=== PATIENT | female | born 1945 | race Two or more races ===

== ENCOUNTER 2023-06-27 22:44 | Inpatient (IN) | payer MEDICARE, MEDICAID, SELFPAY ==
--- NOTE | ~2023-06-27 | CT_ITS ---
EXAMINATION: CT ANGIOGRAM OF THE CHEST WITH AND WITHOUT CONTRAST (CT PULMONARY ANGIOGRAM FOR PE) CLINICAL INFORMATION: Reason for Exam HYPOXIA COMPARISON: Chest x-ray 06/27/2023 TECHNIQUE: Prior to contrast administration, noncontrast localization images were obtained. Subsequently, multidetector volumetric imaging was performed from the thoracic inlet to below the diaphragms following the administration of 100 mL Omnipaque 350 intravenous contrast. No contrast reaction reported Sagittal, coronal, and MIP oblique sagittal reformatted images were obtained on the CT workstation, uploaded to PACS, and reviewed. This CT examination was performed using dose optimization techniques as appropriate, variously including the following: *Automated exposure control *Adjustment of mA and/or kV according to patient size (this includes techniques or standardized protocols for targeted exams where dose is matched to indication/reason for exam; i.e. extremities or head) *Use of iterative reconstruction technique Total exam dose-length product 337 mGy-cm FINDINGS: QUALITY OF STUDY/CONTRAST BOLUS: Suboptimal. PULMONARY ARTERIES: Limited evaluation due to bolus timing and respiratory motion artifact. While no central/lobar pulmonary embolus is seen, the possibility of segmental or subsegmental emboli cannot be excluded on basis of this exam. THORACIC AORTA: No aneurysm. LUNG: There is some collapse of the posterior wall the trachea, suggesting tracheomalacia. There is respiratory motion artifact which limits detail evaluation of the lung parenchyma. Patchy areas of consolidation are present in the bilateral lower lobes, and to a lesser degree in the posterior upper lobes and right middle lobe, including some areas of tree-in-bud type nodularity. There is some dependent atelectasis at the lung bases. PLEURA: No pleural effusion or pneumothorax. MEDIASTINUM: The visualized thyroid gland is unremarkable. There are subcentimeter mediastinal lymph nodes within the range of normal variation. Borderline cardiomegaly without pericardial effusion. No evidence of septal bowing or right heart strain. CORONARY ARTERY CALCIFICATION: None visualized on this study. CHEST WALL/AXILLA: No axillary or internal mammary lymphadenopathy. OSSEOUS STRUCTURES: Multilevel vacuum disc phenomenon in the thoracic spine. UPPER ABDOMEN: Diffusely nodular hepatic contour consistent with cirrhosis. Patient is status post cholecystectomy. Visualized portion of the spleen appears enlarged. No reflux of contrast into the hepatic veins to suggest elevated right heart pressures. CT/CT angio chest PE protocol IMPRESSION: 1. Limited evaluation due to bolus timing and respiratory motion artifact. While no central/lobar pulmonary embolus is seen, the possibility of segmental or subsegmental emboli cannot be excluded on basis of this exam. 2. Patchy areas of consolidation in the bilateral lower lobes, and to a lesser degree in the posterior upper lobes and right middle lobe. Some areas of tree-in-bud type nodularity are also noted. Appearance is most suggestive of an infectious/inflammatory etiology. Follow-up CT in approximately 3 months is recommended to assess for resolution of the consolidations and exclude underlying mass. 3. Cirrhotic morphology of the liver. VTE: indeterminate.
--- NOTE | ~2023-06-27 | XR_ITS ---
EXAMINATION: XR CHEST CLINICAL INFORMATION: Hypoxia COMPARISON: None available. TECHNIQUE: Frontal view of the chest was obtained. FINDINGS: Lung volumes are symmetric. There are patchy airspace opacities in the right perihilar region and base. Questionable patchy left basilar opacity. No evidence of pneumothorax or significant pleural effusion. Cardiac silhouette appears near the upper limits of normal in size. Calcification is present at the aortic arch. No acute osseous findings are seen. XR/XR chest 1V IMPRESSION: Patchy right perihilar and basilar airspace opacities, suspicious for pneumonia in the proper clinical setting. Questionable patchy left basilar opacity. Radiographic followup after treatment/resolution of symptoms is recommended.
[2023-06-27 22:46] VITALS: BP 130/90; PULSE 83; O2SAT 95
[2023-06-27 22:50] VITALS: PULSE 89; RESP 21; O2SAT 93
[2023-06-27 22:52] VITALS: BP 130/90; BP 146/65; PULSE 83; PULSE 93; RESP 29; TEMP 37; O2SAT 94; O2SAT 95; BMI 40.7
--- NOTE | 2023-06-27 23:01 | ECG_ITS ---
Test Reason : SOB Blood Pressure : / mmHG Vent. Rate : 097 BPM Atrial Rate : 097 BPM P-R Int : 138 ms QRS Dur : 080 ms QT Int : 352 ms P-R-T Axes : 070 -08 040 degrees QTc Int : 447 ms Normal sinus rhythm Possible Inferior infarct (cited on or before 27-JUN-2023) Cannot rule out Anterior infarct , age undetermined Abnormal ECG When compared with ECG of 27-JUN-2023 23:01, No significant change was found Referred By: Nikhil Butts Electronically Signed By:PEDRO WILLSON
[2023-06-27] MEDS: 0.9 % Sodium Chloride 1,000 ML 999 ML IV (23:20)
[2023-06-27 23:21] VITALS: O2SAT 93
--- NOTE | 2023-06-27 23:22 | ED_ITS ---
HPI - General Adult General Chief complaint: Dyspnea Stated complaint: LOW O2 Time Seen by Provider: 06/27/23 22:50 Source: patient and EMS Mode of arrival: EMS Limitations: no limitations History of Present Illness HPI narrative: 77-year-old female history of COPD and cigarette smoker came in by EMS from rehab (had total hip arthroplasty at [facility]) started since yesterday with coughing with green sputum and shortness of breath, found to be hypoxic at 75% by EMS patient was placed on 2 L of oxygen and patient is still hypoxic, patient was placed on CPAP during transportation and O2 sat improved to 93 to 94%. Related Data Allergies Allergy/AdvReac Type Severity Reaction Status Date / Time acetaminophen Allergy Unknown Unknown Verified 06/27/23 22:57 Tuberculin AdvReac Unknown Unknown Uncoded 06/27/23 22:57 Review of Systems Review of Systems: All other systems are reviewed and are negative Constitutional: Reports as per HPI and Reports no additional constitutional complaints Eyes: Reports as per HPI and Reports no additional eye complaints Reports system reviewed and no additional complaints, except as documented Cardiovascular: Reports as per HPI and Reports no additional cardiovascular complaints Respiratory: Reports as per HPI and Reports no additional respiratory complaints Gastrointestinal: Reports as per HPI and Reports no additional gastrointestinal complaints Genitourinary: Reports no additional female genitourinary complaints Musculoskeletal: Reports no additional musculoskeletal complaints Skin/Breast: Reports system reviewed and no additional complaints, except as docu Psychiatric: Reports no additional psychiatric complaints Endocrine: Reports no additional endocrine complaints Hematologic/Lymphatic: Reports no additional hematologic/lymphatic complaints Allergic/Immunologic: Reports no additional allergic/immunologic complaints Reports system reviewed and no additional complaints, except as documented and Reports Abnormal speech present [facility] Social History Social History Alcohol intake: unknown Smoked in Last 30 Days: Yes Use of substances other than those prescribed or required for medical reasons: No Advance Directives: No Advance Directives Information Provided: Yes Physical Exam ED Vital Signs: Vital Signs - 24 hr 06/27/23 22:52 06/27/23 22:50 06/27/23 23:23 Temperature 98.6 F Pulse Rate 93 89 Respiratory Rate 29 H 21 H 21 H Blood Pressure 146/65 H Pulse Oximetry 94 Oxygen Delivery Method CPAP 06/27/23 23:44 Temperature Pulse Rate 97 Respiratory Rate 20 Blood Pressure 115/55 L Pulse Oximetry 92 Oxygen Delivery Method CPAP BMI result Body Mass Index 40.7 Vital signs have been reviewed as appeared to be correct. Blood pressure normal. Heart rate normal. Respiration rate normal. Temperature normal. Oxygen saturation normal. Appearance: Alert. Oriented X3. No acute distress. Head: Normal external exam. Normocephalic. Atraumatic. No Stern signs noted. No raccoon eyes noted Eyes: PERRLA. EOMI. Conjunctiva and sclera normal. Eyelids normal. ENT: TM's Normal. Pharynx normal. Uvula midline. Moist mucous membranes. No trismus noted. No drooling noted. No muffled voice noted. Neck: Normal inspection. Neck supple. FROM. No adenopathy. Thyroid Normal. No meningeal signs. No neck mass noted. CVS: Normal heart rate and rhythm. Heart sound normal. No murmurs noted. Pulses normal throughout. Respiratory: No respiratory distress. Painless inspiration. Breath sounds normal. Bilateral diffuse expiratory wheezing with prolonged expiration, bilateral basilar rales bilaterally. Chest nontender. No accessory muscle usage noted or decreased air movement noted. Abdomen: Soft and nontender. Bowel sounds normal in all 4 quadrants. No distention noted. No organomegaly noted. No visible injury noted. Back: No CVA tenderness. Full range of motion noted. Skin: Skin warm and dry. Normal skin color. Normal skin turgor. No rashes/lesions/lacerations noted. Extremities: +2 lower extremity edema. Extremities exhibit normal range of motion. Extremities nontender. Neuro: Oriented X 3. Cranial nerve exam: II-XII are grossly intact No motor deficit. No sensory deficit. Reflexes normal. Course Course Course Narrative: 77-year-old female history of smoking and COPD came in acute respiratory distress with hypoxia require BiPAP to keep O2 sat and a good level, patient also has a healthcare acquired pneumonia with severe sepsis that require BiPAP to maintain patient oxygenation, CHF. 1. Gentle diuresis with Lasix. 2. Continue with BiPAP machine and admit to ICU. 3. Healthcare acquired pneumonia with severe sepsis due to requirement of BiPAP machine gentle fluid was given and Zosyn. No septic shock. Medications Administered Discontinued Medications Generic Name Dose Route Start Last Admin Trade Name Freq PRN Reason Stop Dose Admin Albuterol Sulfate 7.5 mg 06/27/23 22:57 08/21/23 23:23 Albuterol Sulfate (0.083%) 2.5 Mg/3 Ml Vial.Neb INHALE 06/27/23 22:58 7.5 mg ONCE ONE Administration Albuterol/Ipratropium 3 ml 06/27/23 22:57 06/27/23 23:23 Albuterol/Iprat 2.5/0.5mg 3 Ml Ampul.Neb INHALE 06/27/23 22:58 3 ml ONCE ONE Administration Piperacillin Sod/Tazobactam 50 mls @ 100 mls/hr 06/27/23 22:57 06/27/23 23:26 Sod 3.375 gm/ Sodium Chloride IV 06/27/23 23:26 100 mls/hr ONCE ONE Administration Sodium Chloride 1,000 mls @ 999 mls/hr 06/27/23 23:01 06/27/23 23:20 Ns IV 06/28/23 00:01 999 mls/hr .Q1H1M ONE Administration Methylprednisolone Sodium Succinate 125 mg 06/27/23 22:57 06/27/23 23:26 Methylprednisolone Sod Succ 125 Mg/2 Ml Vial IVPUSH 06/27/23 22:58 125 mg ONCE ONE Administration Methylprednisolone Sodium Succinate 125 mg 06/27/23 22:57 06/27/23 23:26 Methylprednisolone Sod Succ 125 Mg/2 Ml Vial IVPUSH 06/27/23 22:58 Not Given ONCE ONE Medical Decision Making Differential Diagnosis Differential Diagnoses: The differential diagnosis associated with the presentation includes (COPD exacerbation, CHF, pneumonia, pneumothorax, pleural effusion, severe sepsis, septic shock, electrolyte abnormality, severe anemia, ACS.) Admission/Observation Consideration of admission/observation: Escalation of care including admission/observation considered Consult Healthcare Provider Management of the patient was discussed with: Dog Food Shredder Operator (Dr. Hughes.) Lab Data MDM Lab Attestation statement: I reviewed the patient's lab results. 06/27/23 23:18 06/27/23 23:18 Labs: Lab Results 06/27/23 06/27/23 06/27/23 Range/Units 23:18 23:18 23:18 WBC 15.6 H (4.8-10.8) X10*3/uL RBC 4.86 (4.20-5.50) X10*6/uL Hgb 13.2 (12.0-16.0) g/dl Hct 42.6 (37.0-47.0) % MCV 87.7 (80.0-98.0) fL MCH 27.2 (27.0-33.0) pg MCHC 31.0 (31.0-35.0) g/dl RDW 14.6 (11.0-16.0) % Plt Count 52 L (160-400) X10*3/uL MPV TNP Immature Gran % (Auto) 0.6 H (0.0-0.4) % Neut % (Auto) 88.5 H (45-73) % Lymph % (Auto) 2.6 L (20-40) % [place] % (Auto) 8.2 (2-11) % Eos % (Auto) 0.0 (0-4) % Baso % (Auto) 0.1 (0-2) % Lymph # (Auto) 0.4 L (1.2-4.9) X10*3/uL [place] # (Auto) 1.3 H (0.1-1.2) X10*3/uL Eos # (Auto) 0.0 (0.0-0.4) X10*3/uL Baso # (Auto) 0.0 (0.0-0.2) X10*3/uL Abs Immat Gran (auto) 0.09 H (0.00-0.03) X10*3/uL Absolute Neuts (auto) 13.8 H (2.0-8.3) x10*3/uL Absolute Nucleated RBC 0.000 (0.0-0.012) X10*3/uL Nucleated RBC % (auto) 0.0 (0.0-0.2) /100WBC Smear Tech's Comments VERIFIED O2 Saturation % ABG pH at Pt Temp (7.35-7.45) ABG pCO2 at Pt Temp (32-45) mmHg ABG pO2 at Pt Temp (83-108) mmHg ABG HCO3 (22-26) mmol/L ABG Base Excess (Actual) mmol/L Sodium 141 (135-145) mmol/L Potassium 4.6 (3.3-5.1) mmol/L Chloride 104 (96-108) mmol/L Carbon Dioxide 30 H (22-29) mmol/L Anion Gap 12 (12-20) BUN 18 H (9-16) mg/dL Creatinine 0.86 (0.5-1.4) mg/dL Estim Creat Clear Calc 61.9 Estimated GFR > 60 Random Glucose 132 H (60-115) mg/dL Lactic Acid (0.5-2.0) mmol/L Calcium 9.2 (8.4-10.2) mg/dL Total Bilirubin 1.7 H (0.0-1.0) mg/dL Direct Bilirubin 0.7 H (0.0-0.5) mg/dL AST 19 (5-31) U/L ALT 7 (0-31) U/L Alkaline Phosphatase 91 (39-117) U/L Troponin I High Sens 8.2 (<3.5-17.0) ng/L B-Natriuretic Peptide (<100) pg/mL Total Protein 6.9 (6.5-8.0) g/dL Albumin 3.5 (3.5-5.0) g/dL Lipase 20 (8-78) U/L Influenza Type A (PCR) (Negative) Influenza Type B (PCR) (Negative) RSV RNA Qual (PCR) (Negative) SARS-CoV-2 RNA (RT-PCR) (Negative) 06/27/23 06/27/23 06/27/23 Range/Units 23:18 23:18 23:19 WBC (4.8-10.8) X10*3/uL RBC (4.20-5.50) X10*6/uL Hgb (12.0-16.0) g/dl Hct (37.0-47.0) % MCV (80.0-98.0) fL MCH (27.0-33.0) pg MCHC (31.0-35.0) g/dl RDW (11.0-16.0) % Plt Count (160-400) X10*3/uL MPV Immature Gran % (Auto) (0.0-0.4) % Neut % (Auto) (45-73) % Lymph % (Auto) (20-40) % [place] % (Auto) (2-11) % Eos % (Auto) (0-4) % Baso % (Auto) (0-2) % Lymph # (Auto) (1.2-4.9) X10*3/uL [place] # (Auto) (0.1-1.2) X10*3/uL Eos # (Auto) (0.0-0.4) X10*3/uL Baso # (Auto) (0.0-0.2) X10*3/uL Abs Immat Gran (auto) (0.00-0.03) X10*3/uL Absolute Neuts (auto) (2.0-8.3) x10*3/uL Absolute Nucleated RBC (0.0-0.012) X10*3/uL Nucleated RBC % (auto) (0.0-0.2) /100WBC Smear Tech's Comments O2 Saturation % ABG pH at Pt Temp (7.35-7.45) ABG pCO2 at Pt Temp (32-45) mmHg ABG pO2 at Pt Temp (83-108) mmHg ABG HCO3 (22-26) mmol/L ABG Base Excess (Actual) mmol/L Sodium (135-145) mmol/L Potassium (3.3-5.1) mmol/L Chloride (96-108) mmol/L Carbon Dioxide (22-29) mmol/L Anion Gap (12-20) BUN (9-16) mg/dL Creatinine (0.5-1.4) mg/dL Estim Creat Clear Calc Estimated GFR Random Glucose (60-115) mg/dL Lactic Acid 1.3 (0.5-2.0) mmol/L Calcium (8.4-10.2) mg/dL Total Bilirubin (0.0-1.0) mg/dL Direct Bilirubin (0.0-0.5) mg/dL AST (5-31) U/L ALT (0-31) U/L Alkaline Phosphatase (39-117) U/L Troponin I High Sens (<3.5-17.0) ng/L B-Natriuretic Peptide 1386 H (<100) pg/mL Total Protein (6.5-8.0) g/dL Albumin (3.5-5.0) g/dL Lipase (8-78) U/L Influenza Type A (PCR) NEGATIVE (Negative) Influenza Type B (PCR) NEGATIVE (Negative) RSV RNA Qual (PCR) NEGATIVE (Negative) SARS-CoV-2 RNA (RT-PCR) NEGATIVE (Negative) 06/27/23 Range/Units 23:20 WBC (4.8-10.8) X10*3/uL RBC (4.20-5.50) X10*6/uL Hgb (12.0-16.0) g/dl Hct (37.0-47.0) % MCV (80.0-98.0) fL MCH (27.0-33.0) pg MCHC (31.0-35.0) g/dl RDW (11.0-16.0) % Plt Count (160-400) X10*3/uL MPV Immature Gran % (Auto) (0.0-0.4) % Neut % (Auto) (45-73) % Lymph % (Auto) (20-40) % [place] % (Auto) (2-11) % Eos % (Auto) (0-4) % Baso % (Auto) (0-2) % Lymph # (Auto) (1.2-4.9) X10*3/uL [place] # (Auto) (0.1-1.2) X10*3/uL Eos # (Auto) (0.0-0.4) X10*3/uL Baso # (Auto) (0.0-0.2) X10*3/uL Abs Immat Gran (auto) (0.00-0.03) X10*3/uL Absolute Neuts (auto) (2.0-8.3) x10*3/uL Absolute Nucleated RBC (0.0-0.012) X10*3/uL Nucleated RBC % (auto) (0.0-0.2) /100WBC Smear [facility]'s Comments O2 Saturation 96.0 % ABG pH at Pt Temp 7.31 L (7.35-7.45) ABG pCO2 at Pt Temp 67 H* (32-45) mmHg ABG pO2 at Pt Temp 88 (83-108) mmHg ABG HCO3 34 H (22-26) mmol/L ABG Base Excess (Actual) 6.0 mmol/L Sodium (135-145) mmol/L Potassium (3.3-5.1) mmol/L Chloride (96-108) mmol/L Carbon Dioxide (22-29) mmol/L Anion Gap (12-20) BUN (9-16) mg/dL Creatinine (0.5-1.4) mg/dL Estim Creat Clear Calc Estimated GFR Random Glucose (60-115) mg/dL Lactic Acid (0.5-2.0) mmol/L Calcium (8.4-10.2) mg/dL Total Bilirubin (0.0-1.0) mg/dL Direct Bilirubin (0.0-0.5) mg/dL AST (5-31) U/L ALT (0-31) U/L Alkaline Phosphatase (39-117) U/L Troponin I High Sens (<3.5-17.0) ng/L B-Natriuretic Peptide (<100) pg/mL Total Protein (6.5-8.0) g/dL Albumin (3.5-5.0) g/dL Lipase (8-78) U/L Influenza Type A (PCR) (Negative) Influenza Type B (PCR) (Negative) RSV RNA Qual (PCR) (Negative) SARS-CoV-2 RNA (RT-PCR) (Negative) ABG Data Attestation ABG: I personally reviewed and interpreted this ABG as follows: (Hypercarbia, slight acidosis.) Independent Interpretation I performed an independent interpretation of an: EKG (Normal sinus rhythm at 88 beats per minutes, left axis deviation, normal intervals, no ST-T changes.) and Plain X-Ray (Patchy right perihilar and basilar airspace opacities, suspicious for pneumonia in the proper clinical setting. Questionable patchy left basilar opacity. Radiographic followup after treatment/resolution of symptoms is recommended. ) Radiology Impression Discussion of test interpretation with radiology: I have reviewed the radiologist's reading. Discharge Plan Discharge Clinical Impression: Acute exacerbation of chronic obstructive airways disease, CHF (congestive heart failure), Pneumonia, Sepsis Patient Disposition: Admitted As Inpatient
[2023-06-27 23:23] VITALS: PULSE 89; RESP 21; O2SAT 93
[2023-06-27] MEDS: Albuterol/Iprat 2.5/0.5MG 3 ML AMPUL.NEB INHALE (23:23)
[2023-06-27] MEDS: Albuterol Sulfate (0.083%) 2.5 MG/3 ML VIAL.NEB 7.5 MG INHALE (23:23)
[2023-06-27 23:24] LABS: ABG HCO3 34 mmol/L (22-26); ABG pCO2 67 mmHg (32-45); ABG pH 7.31 (7.35-7.45); ABG pO2 88 mmHg (83-108)
[2023-06-27] MEDS: methylPREDNISolone Sod Succ 125 MG/2 ML VIAL IVPUSH (23:26)
[2023-06-27] MEDS: Piperacillin Sodium/Tazobactam 3.375 GM in 0.9 % Sodium Chloride 50 ML IV (23:26)
[2023-06-27 23:36] LABS: Lactic Acid 1.3 mmol/L (0.5-2.0)
[2023-06-27 23:39] LABS: Alanine Aminotransferase 7 U/L (0-31); Albumin Level 3.5 g/dL (3.5-5.0); Alkaline Phosphatase 91 U/L (39-117); Anion Gap 12 (12-20); Aspartate Amino Transferase 19 U/L (5-31); Bilirubin Direct 0.7 mg/dL (0.0-0.5); Bilirubin Total 1.7 mg/dL (0.0-1.0); Blood Urea Nitrogen 18 mg/dL (9-16); Calcium 9.2 mg/dL (8.4-10.2); Carbon Dioxide 30 mmol/L (22-29); Chloride 104 mmol/L (96-108); Creatinine Clr Calc Pharmacy 61.9; Estimated Glomerular Filt Rate > 60; Glucose Random 132 mg/dL (60-115); Lipase 20 U/L (8-78); Potassium 4.6 mmol/L (3.3-5.1); Sodium 141 mmol/L (135-145); Total Protein 6.9 g/dL (6.5-8.0)
[2023-06-27 23:41] LABS: Basophils Percent Auto 0.1 % (0-2); Hematocrit 42.6 % (37.0-47.0); Hemoglobin 13.2 g/dl (12.0-16.0); Imm Gran Abs Auto 0.09 X10*3/uL (0.00-0.03); Imm Gran Pct Auto 0.6 % (0.0-0.4); Lymphocytes Absolute Auto 0.4 X10*3/uL (1.2-4.9); Lymphocytes Percent Auto 2.6 % (20-40); Mean Corpuscular Hemoglobin 27.2 pg (27.0-33.0); Mean Corpuscular Volume 87.7 fL (80.0-98.0); Monocytes Absolute Auto 1.3 X10*3/uL (0.1-1.2); Monocytes Percent Auto 8.2 % (2-11); Neutrophils Absolute Auto 13.8 x10*3/uL (2.0-8.3); Neutrophils Percent Auto 88.5 % (45-73); Platelet Count 52 X10*3/uL (160-400); Red Blood Count 4.86 X10*6/uL (4.20-5.50); Red Cell Distribution Width 14.6 % (11.0-16.0); White Blood Count 15.6 X10*3/uL (4.8-10.8)
--- OUTSIDE RECORDS SUMMARY | 2023-06-27 23:41 | XMS_ITS | Continuity of Care Document ---
Author Name Unknown Organization [facility] Address [address] [place] [address]- Care Team Providers Care Mortgage Lender Name Role Phone Ta MAHONEY, Alex Primary Care Physician [place] [facility] [place]/22 [facility] [address], [place] [address] Discharge Disposition: A-D/C Home Attending Physician: Duane Umanzor MD Admitting Physician: Duane Umanzor MD Referring Physician: Antonia Celaya MD Allergies, Adverse Reactions, Alerts Substance Reaction Severity Status codeine Syncope Active Tuberculin Nya Test Active Immunizations Given and Recorded Vaccine Date Status Refusal Reason SARS-CoV-2 (COVID-19) mRNA-1273 vaccine 01/31/21 R ecorded SARS-CoV-2 (COVID-19) mRNA-1273 vaccine 01/03/21 R ecorded influenza virus vaccine, inactivated 12/16/20 Robb rded influenza virus vaccine, inactivated 07/29/12 Give n influenza virus vaccine, inactivated 01/18/07 Give n Hepatitis A Adult Vaccine 03/20/19 Recorded tetanus/diphtheria/pertussis, acel(Tdap) 01/10/19 Recorded hepatitis B adult vaccine 09/08/18 Recorded hepatitis B adult vaccine 06/28/18 Recorded hepatitis B adult vaccine 05/31/18 Recorded hepatitis B adult vaccine 07/14/12 Given pneumococcal 23-valent vaccine 08/06/12 Given Pneumococcal Vaccine (oldterm) 01/18/07 Given Medications albuterol CFC free 90 mcg/inh inhalation aerosol 2 puffs, Inhalation, 4 times a day, # 2 each, 1 Refills, Maintenance Start Date: 05/12/13 Stop Date: 07/11/13 Status: Ordered carvedilol 6.25 mg oral tablet 6.25 mg, 1, tablet, By Mouth, 2 times a day, # 60 tablet, Refills 0, Tot. Refills 0, Maintenance, 11/03/21 10:40:00 EST, Route to Pharmacy Electronically, [facility], Partial fill upon patient request if the prescription is for a schedul... Start Date: 11/03/21 Status: Ordered escitalopram 20 mg oral tablet 1 tablet = 20 mg, By Mouth, Daily in AM, TK 1 T PO QAM Start Date: 07/22/19 Status: Ordered multivitamin Multiple Vitamins oral capsule 1 capsule, By Mouth, Daily, # 30 capsule, 0 Refills, Maintenance, 04/03/21 15:05:00 EDT, Capsule, Partial fill upon patient request if the prescription is for a schedule II opioid drug. Start Date: 04/03/21 Status: Ordered Pantoprazole = 40 mg, By Mouth, 2 times a day, 0 Refills, Maintenance, 10/13/21 4:57:00 EST Start Date: 10/13/21 Status: Ordered Spiriva HandiHaler 18 mcg Inhalation Capsule 1 capsule, Inhalation, Daily, 0 Refills, Maintenance, 07/22/19 4:54:12 EDT, Capsule Start Date: 07/22/19 Status: Ordered thiamine 100 mg oral tablet 100 mg, 1, tablet, By Mouth, 2 times a day, # 30 tablet, Refills 0, Tot. Refills 0, Maintenance, 04/03/21 15:06:00 EDT, Print Requisition, Partial fill upon patient request if the prescription is fora schedule II opioid drug. Start Date: 04/03/21 Status: Ordered Trelegy Ellipta 200 mcg-62.5 mcg-25 mcg/inh inhalation powder 1 puffs, Inhalation, Daily, at the same time every day, # 1 each, 5 Refills, Maintenance, 12/01/20 14:43:00 EST, Powder, [id number], Partial fill upon patient request if the prescription is for a schedule II opioid drug., 1 puffs Inha... Start Date: 12/01/20 Status: Ordered Problem List Condition Effective Dates Status Health Status Inform ant Alcoholism(Confirmed) Active Altered mental status(Confirmed) Active ASTHMA(Confirmed) Active Stroke(Confirmed) Active Chest pain(Confirmed) 07/28/12 Active Liver cirrhosis(Confirmed) Active Depression(Confirmed) Active Hepatitis C(Confirmed) Active HYPERTENSION(Confirmed) Active Respiratory failure with hypoxia(Confirmed) Active Subacute infective endocarditis(Confirmed) Active Obese class I(Confirmed) Active Thrombocytopenia(Confirmed) Active COPD, severe(Confirmed) Active Unresponsiveness(Confirmed) Active Vital Signs Most recent to oldest [Reference Range]: 1 Height 157.4 cm (04/01/22 12:46 PM) Pulse Rate [55-90 bpm] 90 bpm (04/01/22 12:46 PM) Blood Pressure [90-138/55-84 mm Hg] 113/ 68mm Hg (04/01/22 12:46 PM) Temperature [96.8-100.4 DegF] 98.4 DegF (04/01/22 12:46 PM) Blood pressure sites Arm, right (04/01/22 12:46 PM) Temperature Route Oral (04/01/22 12:46 PM) Social History Social History Type Response Smoking Status Former smoker, quit more than 30 days ago entered on: 10/12/21 Sex
--- OUTSIDE RECORDS SUMMARY | 2023-06-27 23:41 | XMS_ITS | Continuity of Care Document ---
Author Name Unknown Organization [facility] Address [address] [place] [address]- Care Team Providers Care Plaster Caster Name Role Phone Ta MAHONEY, Alex Primary Care Physician Encounter [facility] Date(s): 12/01/20 - 12/31/20 [facility] [address] [place], [place] [address] Attending Physician: Mahesh Felipe Admitting Physician: AdmMahesh juarez Referring Physician: AdmtrMahesh Allergies, Adverse Reactions, Alerts No Known Medication Allergies Substance Reaction Severity Status NKA Active Immunizations Given and Recorded Vaccine Date Status Refusal Reason pneumococcal 23-valent vaccine 08/06/12 Given influenza virus vaccine, inactivated 07/29/12 Give n influenza virus vaccine, inactivated 01/18/07 Give n hepatitis B adult vaccine 07/14/12 Given Pneumococcal Vaccine (oldterm) 01/18/07 Given Medications Advair Diskus 250 mcg-50 mcg inhalation powder 1 puffs, Inhalation, 2 times a day, # 60 each, 0 Refills, Maintenance, Powder Start Date: 12/30/11 Status: Ordered albuterol CFC free 90 mcg/inh inhalation aerosol 2 puffs, Inhalation, 4 times a day, # 2 each, 1 Refills, Maintenance Start Date: 05/12/13 Stop Date: 07/11/13 Status: Ordered escitalopram 20 mg oral tablet 1 tablet = 20 mg, By Mouth, Daily in AM, TK 1 T PO QAM Start Date: 07/22/19 Status: Ordered ferrous sulfate 160 mg oral tablet, extended release 2 tablet = 320 mg, By Mouth, Daily, # 60 tablet, 0 Refills, Maintenance, 08/17/19 11:07:28 EDT, ER Tablet Start Date: 08/17/19 Stop Date: 09/16/19 Status: Ordered furosemide 20 mg oral tablet 20 mg, 1, tablet, By Mouth, Daily, PRN, # 30 tablet, Refills 0, Tot. Refills 0, Maintenance, abdominal distention, 08/17/19 10:53:47 EDT, Do Not Route Start Date: 08/17/19 Status: Ordered Loratadine 10 mg, By Mouth, Daily, Maintenance, 09/16/11 10:38:23 Start Date: 09/16/11 Status: Ordered Nicotine = 7 mg, Topically, Daily, 0 Refills, Maintenance, 07/25/19 8:05:31 EDT, Patch Start Date: 07/25/19 Status: Ordered pantoprazole 20 mg oral delayed release tablet 1 tablet = 20 mg, By Mouth, Daily, # 14 tablet, 0 Refills, Maintenance, 07/25/19 8:05:37 EDT, EC Tablet Start Date: 07/25/19 Stop Date: 08/08/19 Status: Ordered Prilosec 20 mg oral enteric coated capsule 1 capsule = 20 mg, By Mouth, Daily, 0 Refills, Maintenance Start Date: 09/16/11 Status: Ordered QUEtiapine 100 mg oral tablet 100 mg, 1, tablet, By Mouth, Daily at bedtime, Refills 0, Maintenance, 08/09/19 18:18:04 EDT Start Date: 08/09/19 Status: Ordered Refresh - solution 1 drops, Eyes, Both, 2 times a day, PRN for dry eyes, # 15 mL, 0 Refills, Maintenance, 07/22/19 4:55:31 EDT, Solution Start Date: 07/22/19 Status: Ordered Spiriva HandiHaler 18 mcg Inhalation Capsule 1 capsule, Inhalation, Daily, 0 Refills, Maintenance, 07/22/19 4:54:12 EDT, Capsule Start Date: 07/22/19 Status: Ordered Trelegy Ellipta 200 mcg-62.5 mcg-25 mcg/inh inhalation powder 1 puffs, Inhalation, Daily, at the same time every day, # 1 each, 5 Refills, Maintenance, 12/01/20 14:43:00 EST, Powder, [id number], Partial fill upon patient request if the prescription is for a schedule II opioid drug., 1 puffs Inha... Start Date: 12/01/20 Status: Ordered vancomycin 25 mg/mL oral liquid 5 mL = 125 mg, By Mouth, 4 times a day, to continue until 10-14 days after completion of IV cefazolin, 0 Refills, Maintenance, 08/28/19 8:50:42 EDT, Suspension Start Date: 08/28/19 Status: Ordered Problem List Condition Effective Dates Status Health Status Inform ant Alcoholism(Confirmed) Active Altered mental status(Confirmed) Active ASTHMA(Confirmed) Active Chest pain(Confirmed) 07/28/12 Active Liver cirrhosis(Confirmed) Active Depression(Confirmed) Active Hepatitis C(Confirmed) Active HYPERTENSION(Confirmed) Active Respiratory failure with hypoxia(Confirmed) Active Subacute infective endocarditis(Confirmed) Active COPD, severe(Confirmed) Active Unresponsiveness(Confirmed) Active
--- OUTSIDE RECORDS SUMMARY | 2023-06-27 23:41 | XMS_ITS | Continuity of Care Document ---
Author Name Unknown Organization [facility] Address [address] [place] [address]- Care Team Providers Care Business Professor Name Role Phone Leonardo Alejandra MD Primary Care Physician Encounter [facility] [place] Date(s): 06/23/21 - 10/21/21 [facility] [address] [place] [id number]- Attending Physician: Javi Oconnell MD Admitting Physician: Javi Oconnell MD Referring Physician: Todd MAHONEY, Braulio Kaminski Allergies, Adverse Reactions, Alerts Substance Reaction Severity [...] Date: 05/12/13 Stop Date: 07/11/13 Status: Ordered Alprazolam 1 mg, By Mouth, Refills 0, Maintenance, 10/13/21 4:58:00 EST, Partial fill upon patient request if the prescription is for a schedule II opioid drug. Start Date: 10/13/21 Status: Ordered escitalopram 20 mg oral tablet 1 tablet = 20 mg, By Mouth, Daily in AM, TK 1 T PO QAM Start Date: 07/22/19 Status: Ordered folic acid 1 mg oral tablet 1 mg, 1, tablet, By Mouth, Daily, # 30 tablet, Refills 0, Tot. Refills 0, Maintenance, 04/03/21 15:05:00 EDT, Print Requisition, Partial fill upon patient request if the prescription is for a schedule II opioid drug. Start Date: 04/03/21 Status: Ordered Keppra 500 mg oral tablet 1 tablet = 500 mg, By Mouth, 2 times a day, # 60 tablet, 0 Refills, Maintenance, 10/13/21 15:49:00 EST, Tablet, [facility], Partial fill upon patient request if the prescription is for a schedule II opioid drug., 157.48, cm, 10/13/21 11:... Start Date: 10/13/21 Stop Date: 11/12/21 Status: Ordered Loratadine 10 mg, By Mouth, Daily, Maintenance, 09/16/11 10:38:23 Start Date: 09/16/11 Status: Ordered midodrine 5 mg oral tablet 5 mg, 1, tablet, By Mouth, 3 times a day, # 90, Refills 0, Maintenance, 10/13/21 5:00:00 EST, Partial fill upon patient request if the prescription is for a schedule II opioid drug. Start Date: 10/13/21 Status: Ordered multivitamin Multiple Vitamins oral capsule 1 capsule, By Mouth, Daily, # 30 capsule, 0 Refills, Maintenance, 04/03/21 15:05:00 EDT, Capsule, Partial fill upon patient request if the prescription is for a schedule II opioid drug. Start Date: 04/03/21 Status: Ordered Pantoprazole = 40 mg, By Mouth, 2 times a day, 0 Refills, Maintenance, 10/13/21 4:57:00 EST Start Date: 10/13/21 Status: Ordered Propranolol 10 mg, By Mouth, Every 12 hours, Refills 0, Maintenance, 10/13/21 4:59:00 EST, Partial fill upon patient request if the prescription is for a schedule II opioid drug. Start Date: 10/13/21 Status: Ordered QUEtiapine 100 mg oral tablet 100 mg, 1, tablet, By Mouth, Daily at bedtime, Refills 0, Maintenance, 08/09/19 18:18:04 EDT Start Date: 08/09/19 Status: Ordered Spiriva HandiHaler 18 mcg Inhalation Capsule 1 capsule, Inhalation, Daily, 0 Refills, Maintenance, 07/22/19 4:54:12 EDT, Capsule Start Date: 07/22/19 Status: Ordered Spironolactone = 100 mg, By Mouth, Daily, 0 Refills, Maintenance, 10/13/21 4:56:00 EST, Partial fill upon patient request if the prescription is for a schedule II opioid drug. Start Date: 10/13/21 Status: Ordered thiamine 100 mg oral tablet 100 mg, 1, tablet, By Mouth, 2 times a day, # 30 tablet, Refills 0, Tot. Refills 0, Maintenance, 04/03/21 15:06:00 EDT, Print Requisition, Partial fill upon patient request if the prescription is fora schedule II opioid drug. Start Date: 04/03/21 Status: Ordered traZODone 50 mg oral tablet 50 mg, 1, tablet, By Mouth, Daily at bedtime, # 30 tablet, Refills 0, Maintenance, 10/13/21 4:56:00EST, Partial fill upon patient request if the prescription is for a schedule II opioid drug. Start Date: 10/13/21 Status: Ordered Trelegy Ellipta 200 mcg-62.5 mcg-25 mcg/inh inhalation powder 1 puffs, Inhalation, Daily, at the same time every day, # 1 each, 5 Refills, Maintenance, 12/01/20 14:43:00 EST, Powder, [id number], Partial fill upon patient request if the [...] with hypoxia(Confirmed) Active Subacute infective endocarditis(Confirmed) Active Thrombocytopenia(Confirmed) Active COPD, severe(Confirmed) Active Unresponsiveness(Confirmed) Active Social History Social History Type Response Smoking Status Former smoker, quit more than 30 days ago entered on: 10/12/21 Sex
--- OUTSIDE RECORDS SUMMARY | 2023-06-27 23:41 | XMS_ITS | Continuity of Care Document ---
Author Name Unknown Organization [facility] Address [address] [place] [id number] Care Team Providers Care Grant Manager Name Role Phone Not on Staff, PCP Primary Care Physician Unavail able Encounter [facility] Date(s): 01/06/23 - 01/16/[address] [id number] Encounter Diagnosis Hypoxia(Final) - 01/06/23 Discharge Disposition: A-Transfer SNF Attending Physician: Pasquale Middleton DO Admitting Physician: Citlali Fernández MD Referring Physician: Not on Staff, Referring MD Allergies, Adverse Reactions, Alerts Substance Reaction Severity Status codeine Syncope Active Tuberculin Nya Test Active Immunizations Given and Recorded Vaccine Date Status Refusal Reason SARS-CoV-2 (COVID-19) mRNA-1273 vaccine 03/30/22 R ecorded SARS-CoV-2 (COVID-19) mRNA-1273 vaccine 01/31/21 R ecorded SARS-CoV-2 (COVID-19) mRNA-1273 vaccine 01/03/21 R ecorded influenza virus vaccine, inactivated 12/16/20 Robb rded influenza virus vaccine, inactivated 08/25/18 Robb rded influenza virus vaccine, inactivated 09/23/16 Robb rded influenza virus vaccine, inactivated 10/10/15 Rbob rded influenza virus vaccine, inactivated 08/01/14 Robb rded influenza virus vaccine, inactivated 07/29/12 Give n influenza virus vaccine, inactivated 01/18/07 Give n Hepatitis A Adult Vaccine 03/20/19 Recorded tetanus/diphtheria/pertussis, acel(Tdap) 01/10/19 Recorded hepatitis B adult vaccine 09/08/18 Recorded hepatitis B adult vaccine 06/28/18 Recorded hepatitis B adult vaccine 05/31/18 Recorded hepatitis B adult vaccine 07/14/12 Given tetanus-diphtheria toxoids (Td) 08/25/18 Recorded pneumococcal 13-valent vaccine 08/25/18 Recorded pneumococcal 23-valent vaccine 10/10/15 Recorded pneumococcal 23-valent vaccine 08/06/12 Given Pneumococcal Vaccine (oldterm) 01/18/07 Given Medications acamprosate 333 mg oral delayed release tablet 2 tablet = 666 mg, By Mouth, 3 times a day, Maintenance, 01/06/23 13:53:00 EST, ; Start Date: 01/06/23 Status: Ordered albuterol-ipratropium 3 mg-0.5 mg/3 ml inhalation solution 3 mL, Neb, 3 times a day, PRN Wheezing/Shortness of Breath, Maintenance, 01/06/23 13:53:00 EST, ; Start Date: 01/06/23 Status: Ordered ALPRAZolam 0.5 mg oral tablet 0.5 mg, 1, tablet, By Mouth, 2 times a day, PRN, for 7 days, # 12 tablet, Refills 0, Tot. Refills 0, Acute 01/23/23 9:06:00 EDT, Sleep, 01/16/23 9:06:00 EDT, Print Requisition, Partial fill upon patient request if the prescription is for a schedule II... Start Date: 01/16/23 Stop Date: 01/23/23 Status: Ordered Artificial Tears 1.4% Eyes, Both, Every 4 hours, PRN Other, Dryness., 0 Refills, Maintenance, 01/16/23 9:05:00 EDT, OphthSolution, Partial fill upon patient request if the prescription is for a schedule II opioid drug. Start Date: 01/16/23 Status: Ordered Daily Talia oral tablet 1 tablet, By Mouth, Daily, Maintenance, 01/06/23 13:53:00 EST, ; Start Date: 01/06/23 Status: Ordered diclofenac 1% topical gel Topically, 2 times a day, Maintenance, 01/06/23 13:53:00 EST, ; Start Date: 01/06/23 Status: Ordered Docusate/Senna Tablet 1 tablet, By Mouth, 2 times a day, PRN Constipation, 0 Refills, Maintenance, 01/16/23 9:05:00 EDT, Tablet, Partial fill upon patient request if the prescription is for a schedule II opioid drug. Start Date: 01/16/23 Status: Ordered duloxetine 30 mg oral enteric coated capsule 1 capsule = 30 mg, By Mouth, Daily, Maintenance, 01/06/23 13:53:00 EST, ; Start Date: 01/06/23 Status: Ordered escitalopram 20 mg oral tablet 1 tablet = 20 mg, By Mouth, Daily, Maintenance, 01/06/23 13:53:00 EST, ; Start Date: 01/06/23 Status: Ordered folic acid 1 mg oral tablet 1 mg, 1, tablet, By Mouth, Daily, Maintenance, 01/06/23 14:05:00 EST, ; Start Date: 01/06/23 Status: Ordered furosemide 20 mg oral tablet 20 mg, 1, tablet, By Mouth, Daily, Maintenance, 01/06/23 13:53:00 EST, ; Start Date: 01/06/23 Status: Ordered gabapentin 300 mg oral capsule 300 mg, Capsule, By Mouth, 01/16/23 9:00:00 EDT Start Date: 01/16/23 Stop Date: 01/16/23 Status: Completed gabapentin 300 mg oral capsule 300 mg, 1, capsule, By Mouth, 2 times a day, Maintenance, 01/06/23 13:53:00 EST, ; Start Date: 01/06/23 Status: Ordered hydrocortisone 1% topical cream Rectally, 2 times a day, Maintenance, 01/06/23 13:53:00 EST, ; Start Date: 01/06/23 Status: Ordered levETIRAcetam 500 mg oral tablet 1 tablet = 500 mg, By Mouth, 2 times a day, Maintenance, 01/06/23 13:53:00 EST, ; Start Date: 01/06/23 Status: Ordered loratadine 10 mg oral tablet 10 mg, 1, tablet, By Mouth, Daily, Refills 0, Maintenance, 01/16/23 9:05:00 EDT, Partial fill upon patient request if the prescription is for a schedule II opioid drug. Start Date: 01/16/23 Status: Ordered metoprolol 25 mg oral tablet, extended release 25 mg, XL Tablet, By Mouth, 01/16/23 9:00:00 EDT Start Date: 01/16/23 Stop Date: 01/16/23 Status: Completed Metoprolol Succinate ER 25 mg oral tablet, extended release 1 tablet = 25 mg, By Mouth, Daily, Maintenance, 01/06/23 13:53:00 EST, ; Start Date: 01/06/23 Status: Ordered naloxone 4 mg/0.1 mL nasal spray = 4 mg, Naris, Left, Once, PRN as needed, Maintenance, 01/06/23 13:53:00 EST, ; Start Date: 01/06/23 Status: Ordered Nyamyc 100,000 units/g topical powder Topically, 4 times a day, Maintenance, 01/06/23 13:53:00 EST, ; Start Date: 01/06/23 Status: Ordered oxyCODONE 5 mg oral tablet 5 mg, 1, tablet, By Mouth, Every 6 hours, PRN, for 7 days, # 28 tablet, Refills 0, Tot. Refills 0, Acute 01/23/23 9:04:00 EDT, Pain , Moderate, 01/16/23 9:04:00 EDT, Print Requisition, Partial fill upon patient request if the prescription is for a max... Start Date: 01/16/23 Stop Date: 01/23/23 Status: Ordered pantoprazole 40 mg oral delayed release tablet 1 tablet = 40 mg, By Mouth, Daily, Maintenance, 01/06/23 13:53:00 EST Start Date: 01/06/23 Status: Ordered polyethylene glycol 3350 oral powder for reconstitution = 17 Gm, By Mouth, Daily, Maintenance, 01/06/23 13:53:00 EST, ; Start Date: 01/06/23 Status: Ordered ProAir HFA 90 mcg/inh inhalation aerosol 2 puffs, Inhalation, PRN Wheezing/Shortness of Breath, every 4-6 hours, Maintenance, 01/06/23 13:53:00 EST, ; Start Date: 01/06/23 Status: Ordered Pyridoxine Tablet 50 mg, By Mouth, Daily, Refills 0, Maintenance, 01/16/23 9:05:00 EDT, Partial fill upon patient request if the prescription is for a schedule II opioid drug. Start Date: 01/16/23 Status: Ordered traZODone 50 mg oral tablet 50 mg, 1, tablet, By Mouth, Daily at bedtime, Maintenance, 01/06/23 13:53:00 EST, ; Start Date: 01/06/23 Status: Ordered Trelegy Ellipta 200 mcg-62.5 mcg-25 mcg/inh inhalation powder 1 puffs, Inhalation, Daily, Maintenance, 01/06/23 13:53:00 EST, ; Start Date: 01/06/23 Status: Ordered valsartan 40 mg oral tablet 80 mg, Tablet, By Mouth, 01/16/23 9:00:00 EDT Start Date: 01/16/23 Stop Date: 01/16/23 Status: Completed valsartan 80 mg oral tablet 80 mg, 1, tablet, By Mouth, Daily, Maintenance, 01/06/23 13:53:00 EST, ; Start Date: 01/06/23 Status: Ordered Vitamin B1 100 mg oral tablet 100 mg, 1, tablet, By Mouth, Daily, Maintenance, 01/06/23 13:53:00 EST, ; Start Date: 01/06/23 Status: Ordered Problem List Condition Confirmation Course Effective Dates Status H ealth Status Informant Alcoholism Confirmed Active Altered mental status Confirmed Active ASTHMA Confirmed Active Stroke Confirmed Active Chest pain Confirmed 07/28/12 Active Liver cirrhosis Confirmed Active Depression Confirmed Active Hepatitis C Confirmed Active HYPERTENSION Confirmed Active Respiratory failure with hypoxia Confirmed Active Subacute infective endocarditis Confirmed Active Thrombocytopenia Confirmed Active COPD, severe Confirmed Active Severe obesity (BMI 35.0-39.9) with comorbidity Confirmed Active Unresponsiveness Confirmed Active Results Radiology Reports * Exam Date Time Procedure Performing Provider Status 01/06/23 6:43 AM Chest Portable Kamlesh Zamora (Johan ified) Notes: (Chest Portable) Reason For Exam: Pain;Other: RESULT: Chest Portable Chest Portable INDICATION: Chest pain after trauma, concern for fracture. COMPARISON: None. FINDINGS: LINES AND TUBES: None. LUNGS AND PLEURA: Hazy opacification of the bilateral costophrenic angles with patchy opacities in the lower lung regions. No pneumothorax. HEART, MEDIASTINUM AND RAFAELA: Heart is normal in size. Normal mediastinal and hilar contour. BONES AND SOFT TISSUES: Subtle nondisplaced seventh left anterolateral rib fracture. IMPRESSION: Small bilateral pleural effusions. Patchy opacities in the lower lung regions which may represent atelectasis and/or pneumonia. Subtle nondisplaced seventh left anterolateral rib fracture. I have personally reviewed the images and I agree with this report. WSN: [id number] Ordering Physician: Antony Cormier Dictated By: Jack Sewell MD Dictated Date/Time: 01/06/23 8:45 am Reviewed By: Prabhjot Bautista MD, V Signed By: Prabhjot Bautista MD, V Signed Date/Time: 01/06/23 8:50 am Transcribed By: EVY Transcribed Date/Time: 01/06/23 8:39 am * Exam Date Time Procedure Performing Provider Status 01/06/23 6:[address] Abd/Pelvis W/ IV Contrast Only Bryanna Moore; Auth (Verified) Notes: (CT Abd/Pelvis W/ IV Contrast Only) Reason For Exam: Abd trauma, blunt;Other: RESULT: CT Abd/Pelvis W/ IV Contrast Only CT Chest W/ Contrast, CT Abd/Pelvis W/ IV Contrast Only INDICATION: Chest trauma, blunt; Clinical Question(s): Aortic hilar injury TECHNIQUE: Helical CT scan of the chest, abdomen, and pelvis with IV contrast, formatted in 3 planes. 100 cc of Omnipaque 300 was administered intravenously. This study was performed without oral contrast. Weight-based protocol was performed using automatic exposure control. CTDIvol Body: 17.70 mGy, DLP Body: 1227 mGy*cm. COMPARISON: MRI of the abdomen dated September 01, 2018, available under a different medical record ([id number]). FINDINGS: Seismograph Chief view findings, lines and tubes: None. Trachea and airways: Patent without evidence of tracheal or endobronchial lesion. Lungs and pleura: Patchy consolidation or atelectasis in the posterior lung bases. No effusion or pneumothorax. Mediastinum and rafaela: No mass or hematoma. No mediastinal or hilar lymphadenopathy. No esophageal abnormality. Paraesophageal varicoses distally. Normal thyroid. Heart: Cardiomegaly. Mild aortic valvular and severe mitral annular calcification. No pericardial effusion. Aorta: Minimal vascular calcification but no aneurysm. Pulmonary arteries: Normal caliber. No evidence of pulmonary embolism on this study performed without angiographic technique. Chest wall soft tissues: No acute abnormality. Diaphragm: Intact. Liver: Cirrhotic liver. 1.5 cm hypodense lesion in segment 4A measuring 21 Hounsfield units (201:82). This correlates with a simple cyst described on MRI from 2018, available under a different medical record number, similar in size. Gallbladder: Status post cholecystectomy. Bile ducts: No biliary ductal dilation. Spleen: Mild splenomegaly measuring 14.3 cm AP. Small splenic granuloma. Pancreas: No suspicious lesion or ductal dilatation. Adrenal glands: No nodule. Kidneys and ureters: Atrophic kidneys with diffuse cortical scarring. Evaluation for suspicious lesion is suboptimal, but the appearance is similar to prior.. No obstructing stone, hydronephrosis or hydroureter. Bladder: Partially obscured by streak artifact. Grossly unremarkable. Reproductive organs: Probable calcified fibroids within the uterus, which appears adhesed to the anterior abdominal wall.. Ovaries are unremarkable. Stomach, small bowel, and large bowel: No bowel obstruction. Mild colonic diverticulosis without evidence of acute diverticulitis. Appendix: No evidence of acute appendicitis. Peritoneum and retroperitoneum: No ascites or pneumoperitoneum. No omental or mesenteric lesions. Lymph nodes: No enlarged lymph nodes. Blood vessels: Mild vascular calcifications but no aneurysm. No evidence of venous thrombosis. Extensive paraesophageal and splenic varicosities with evidence of splenorenal shunting. Abdominal and pelvic wall soft tissues: Diastases of the rectus abdominis with mild protrusion of bowel loops. Contusion versus asymmetric edema along the left hip wall. Diffuse soft tissue edema. Bones: Age indeterminate compression deformities of T11 to L4 superior endplate (208:69 and 70). A few of these were likely present on prior chest radiograph from 2019 but were otherwise not previously imaged. Status post right proximal femur ORIF without complication. Status post left total arthroplasty without complication. IMPRESSION: Age indeterminate mild compression deformities from T11 to L4 superior endplates. No retropulsion or other acute sequelae of trauma. Patchy consolidation or atelectasis in the lung bases, with early aspiration or pneumonia possible in the proper clinical setting. Cirrhotic liver with stigmata of portal hypertension including splenomegaly, paraesophageal and splenic varicosities with splenorenal shunting. Preliminary results were conveyed via telephone by Dr. Dunn to Dr. Linda Arguelles on 01/06/2023 at 7:40 AM with understanding acknowledged. The final impression above was relayed to Antony Cormier DO by Dr. Olaf Thurman over the phone on 01/06/2023 at 8:09 AM. I have personally reviewed the images and I agree with this report. WSN: [id number] Ordering Physician: Antony Cormier Dictated By: Rafaela Dunn DO Dictated Date/Time: 01/06/23 8:13 am Reviewed By: Olaf Thurman MD Signed By: Olaf Thurman MD Signed Date/Time: 01/06/23 8:18 am Transcribed By: EVY Transcribed Date/Time: 01/06/23 7:49 am * Exam Date Time Procedure Performing Provider Status 01/06/23 6:[address] Chest W/ Contrast Bryanna Moore; Scout (Verified) Notes: (CT Chest W/ Contrast) Reason For Exam: Chest trauma, blunt;Other: RESULT: CT Chest W/ Contrast CT Chest W/ Contrast, CT Abd/Pelvis W/ IV Contrast Only INDICATION: Chest trauma, blunt; Clinical Question(s): Aortic hilar injury TECHNIQUE: Helical CT scan of the chest, abdomen, and pelvis with IV contrast, formatted in 3 planes. 100 cc of Omnipaque 300 was administered intravenously. This study was performed without oral contrast. Weight-based protocol was performed using automatic exposure control. CTDIvol Body: 17.70 mGy, DLP Body: 1227 mGy*cm. COMPARISON: MRI of the abdomen dated September 01, 2018, available under a different medical record ([id number]). FINDINGS: Seismograph Chief view findings, lines and tubes: None. Trachea and airways: Patent without evidence of tracheal or endobronchial lesion. Lungs and pleura: Patchy consolidation or atelectasis in the posterior lung bases. No effusion or pneumothorax. Mediastinum and rafaela: No mass or hematoma. No mediastinal or hilar lymphadenopathy. No esophageal abnormality. Paraesophageal varicoses distally. Normal thyroid. Heart: Cardiomegaly. Mild aortic valvular and severe mitral annular calcification. No pericardial effusion. Aorta: Minimal vascular calcification but no aneurysm. Pulmonary arteries: Normal caliber. No evidence of pulmonary embolism on this study performed without angiographic technique. Chest wall soft tissues: No acute abnormality. Diaphragm: Intact. Liver: Cirrhotic liver. 1.5 cm hypodense lesion in segment 4A measuring 21 Hounsfield units (201:82). This correlates with a simple cyst described on MRI from 2018, available under a different medical record number, similar in size. Gallbladder: Status post cholecystectomy. Bile ducts: No biliary ductal dilation. Spleen: Mild splenomegaly measuring 14.3 cm AP. Small splenic granuloma. Pancreas: No suspicious lesion or ductal dilatation. Adrenal glands: No nodule. Kidneys and ureters: Atrophic kidneys with diffuse cortical scarring. Evaluation for suspicious lesion is suboptimal, but the appearance is similar to prior.. No obstructing stone, hydronephrosis or hydroureter. Bladder: Partially obscured by streak artifact. Grossly unremarkable. Reproductive organs: Probable calcified fibroids within the uterus, which appears adhesed to the anterior abdominal wall.. Ovaries are unremarkable. Stomach, small bowel, and large bowel: No bowel obstruction. Mild colonic diverticulosis without evidence of acute diverticulitis. Appendix: No evidence of acute appendicitis. Peritoneum and retroperitoneum: No ascites or pneumoperitoneum. No omental or mesenteric lesions. Lymph nodes: No enlarged lymph nodes. Blood vessels: Mild vascular calcifications but no aneurysm. No evidence of venous thrombosis. Extensive paraesophageal and splenic varicosities with evidence of splenorenal shunting. Abdominal and pelvic wall soft tissues: Diastases of the rectus abdominis with mild protrusion of bowel loops. Contusion versus asymmetric edema along the left hip wall. Diffuse soft tissue edema. Bones: Age indeterminate compression deformities of T11 to L4 superior endplate (208:69 and 70). A few of these were likely present on prior chest radiograph from 2019 but were otherwise not previously imaged. Status post right proximal femur ORIF without complication. Status post left total arthroplasty without complication. IMPRESSION: Age indeterminate mild compression deformities from T11 to L4 superior endplates. No retropulsion or other acute sequelae of trauma. Patchy consolidation or atelectasis in the lung bases, with early aspiration or pneumonia possible in the proper clinical setting. Cirrhotic liver with stigmata of portal hypertension including splenomegaly, paraesophageal and splenic varicosities with splenorenal shunting. Preliminary results were conveyed via telephone by Dr. Dunn to Dr. Linda Arguelles on 01/06/2023 at 7:40 AM with understanding acknowledged. The final impression above was relayed to Antony Cormier DO by Dr. Olaf Thurman over the phone on 01/06/2023 at 8:09 AM. I have personally reviewed the images and I agree with this report. WSN: [id number] Ordering Physician: Antony Cormier Dictated By: Rafaela Dunn DO Dictated Date/Time: 01/06/23 8:13 am Reviewed By: Olaf Thuramn MD Signed By: Olaf Thurman MD Signed Date/Time: 01/06/23 8:18 am Transcribed By: EVY Transcribed Date/Time: 01/06/23 7:49 am * Exam Date Time Procedure Performing Provider Status 01/06/23 6:[address] Cervical Spine W/O Contrast Orlando Moore; Auth (Verified) Notes: (CT Cervical Spine W/O Contrast) Reason For Exam: Neck trauma, dangerous injury mechanism;Other: RESULT: CT Cervical Spine W/O Contrast CT Head/Brain W/O Contrast, CT Cervical Spine W/O Contrast INDICATION: Head trauma, mod-severe; Clinical Question(s): Hematoma. TECHNIQUE: Incremental CT without contrast through the head was formatted in axial and coronal plane. Spiral CT without contrast through the cervical spine was formatted in 3 planes. Weight-based protocol using automatic tube modulation was performed to optimize scan parameters. CTDIvol Body: 18.60 mGy, DLP Body: 408 mGy*cm. CTDIvol Head: 48.00 mGy, DLP Head: 966 mGy*cm. COMPARISON: None. FINDINGS: BRAIN and EXTRA-AXIAL SPACES: No parenchymal hemorrhage, midline shift or mass effect. Donahue-white matter differentiation is well preserved. No acute infarct. Calcification within the left frontal lobe, likely from prior trauma orinfection. Negative insular ribbon and hyperdense vessel signs. Mild prominence of the ventricles and sulci consistent with parenchymal volume loss. Mild low-density white matter changes. No subarachnoid hemorrhage, subdural or epidural collections. CALVARIUM, SKULL BASE AND SOFT TISSUES: No calvarial fracture. Minimally angulated left nasal bone fracture. The paranasal sinuses and mastoid air cells are clear. Right prosthetic globe. Mild left periorbital contusion. CERVICAL SPINE: No fracture. No acute osseous abnormalities. No acute malalignment. Normal craniocervical and C1-C2 relationship. Mild degenerative changes. OTHER BONES: No acute abnormality. CERVICAL SOFT TISSUES AND LUNG APICES: Clear lung apices. Normal thyroid gland. IMPRESSION: 1. No evidence of acute intracranial abnormality. 2. Minimally angulated left nasal bone fracture. Please correlate with point tenderness. 3. Mild left periorbital contusion. 4. No acute fracture or subluxation of the cervical spine. I have personally reviewed the images and I agree with this report. WSN: [id number] Ordering Physician: Antony Cormier Dictated By: Rafaela Dunn DO Dictated Date/Time: 01/06/23 7:28 am Reviewed By: Levi Brandt MD Signed By: Levi Brandt MD Signed Date/Time: 01/06/23 7:33 am Transcribed By: EVY Transcribed Date/Time: 01/06/23 7:09 am * Exam Date Time Procedure Performing Provider Status 01/06/23 6:[address] Head/Brain W/O Contrast Bryanna Moore; Scout (Verified) Notes: (CT Head/Brain W/O Contrast) Reason For Exam: Head trauma, mod-severe;Other: RESULT: CT Head/Brain W/O Contrast CT Head/Brain W/O Contrast, CT Cervical Spine W/O Contrast INDICATION: Head trauma, mod-severe; Clinical Question(s): Hematoma. TECHNIQUE: Incremental CT without contrast through the head was formatted in axial and coronal plane. Spiral CT without contrast through the cervical spine was formatted in 3 planes. Weight-based protocol using automatic tube modulation was performed to optimize scan parameters. CTDIvol Body: 18.60 mGy, DLP Body: 408 mGy*cm. CTDIvol Head: 48.00 mGy, DLP Head: 966 mGy*cm. COMPARISON: None. FINDINGS: BRAIN and EXTRA-AXIAL SPACES: No parenchymal hemorrhage, midline shift or mass effect. Donahue-white matter differentiation is well preserved. No acute infarct. Calcification within the left frontal lobe, likely from prior trauma orinfection. Negative insular ribbon and hyperdense vessel signs. Mild prominence of the ventricles and sulci consistent with parenchymal volume loss. Mild low-density white matter changes. No subarachnoid hemorrhage, subdural or epidural collections. CALVARIUM, SKULL BASE AND SOFT TISSUES: No calvarial fracture. Minimally angulated left nasal bone fracture. The paranasal sinuses and mastoid air cells are clear. Right prosthetic globe. Mild left periorbital contusion. CERVICAL SPINE: No fracture. No acute osseous abnormalities. No acute malalignment. Normal craniocervical and C1-C2 relationship. Mild degenerative changes. OTHER BONES: No acute abnormality. CERVICAL SOFT TISSUES AND LUNG APICES: Clear lung apices. Normal thyroid gland. IMPRESSION: 1. No evidence of acute intracranial abnormality. 2. Minimally angulated left nasal bone fracture. Please correlate with point tenderness. 3. Mild left periorbital contusion. 4. No acute fracture or subluxation of the cervical spine. I have personally reviewed the images and I agree with this report. WSN: [id number] Ordering Physician: Antony Cormier Dictated By: Rafaela Dunn DO Dictated Date/Time: 01/06/23 7:28 am Reviewed By: Levi Brandt MD Signed By: Levi Brandt MD Signed Date/Time: 01/06/23 7:33 am Transcribed By: EVY Transcribed Date/Time: 01/06/23 7:09 am Vital Signs Most recent to oldest [Reference Range]: 1 2 3 Height 157 cm (01/16/23 8:11 AM) 157 cm (01/16/23 3:19 AM) 157 cm (01/15/23 2:05 PM) Weight 93.6 kg (01/16/23 6:14 AM) 94.3 kg (01/15/23 4:35 AM) 98.0 kg (01/14/23 4:40 AM) Oxygen Saturation [94-100 %] 92 % *L* (01/16/23 8:11 AM) 93 % *L* (01/16/23 3:19 AM) 98 % (01/15/23 2:05 PM) Pulse Rate [55-90 bpm] 85 bpm (01/16/23 9:07 AM) 85 bpm (01/16/23 8:11 AM) 87 bpm (01/16/23 3:19 AM) Body Mass Index [18.5-24.99 kg/m2] 38.18 kg/m2 *>HHI* (01/07/23 7:16 PM) 39.03 kg/m2 *>HHI* (01/06/23 2:24 PM) Blood Pressure [90-138/55-84 mm Hg] 140/71mm Hg *H* (01/16/23 10:11 AM) 140/71mm Hg *H* (01/16/23 9:07 AM) 140/71mm Hg *H* (01/16/23 8:11 AM) Respiratory Rate [16-30 br/min] 18 br/min (01/16/23 10:07 AM) 20 br/min (01/16/23 9:07 AM) 18 br/min (01/16/23 8:11 AM) Temperature [96.8-100.4 DegF] 98.3 DegF (01/16/23 8:11 AM) 98.4 DegF (01/16/23 3:19 AM) 98.5 DegF (01/15/23 2:05 PM) Liters per Minute 2 L/min (01/15/23 3:21 AM) 0 L/min (01/14/23 8:23 AM) 2 L/min (01/14/23 1:59 AM) Mode of Delivery (Oxygen) Room air (01/16/23 8:11 AM) Room air (01/16/23 3:19 AM) Room air (01/15/23 2:05 PM) Blood pressure sites Arm, right (01/16/23 8:11 AM) Arm, right (01/16/23 3:19 AM) Arm, right (01/15/23 8:00 AM) Temperature Route Temporal (01/16/23 8:11 AM) Temporal (01/16/23 3:19 AM)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 Spine W/O Contrast INDICATION: Head trauma, mod-severe; Clinical Question(s): Hematoma. TECHNIQUE: Incremental CT without contrast through the head was formatted in axial and coronal plane. Spiral CT without contrast through the cervical spine was formatted in 3 planes. Weight-based protocol using automatic tube modulation was performed to optimize scan parameters. CTDIvol Body: 18.60 mGy, DLP Body: 408 mGy*cm. CTDIvol Head: 48.00 mGy, DLP Head: 966 mGy*cm. COMPARISON: None. FINDINGS: BRAIN and EXTRA-AXIAL SPACES: No parenchymal hemorrhage, midline shift or mass effect. Donahue-white matter differentiation is well preserved. No acute infarct. Calcification within the left frontal lobe, likely from prior trauma orinfection. Negative insular ribbon and hyperdense vessel signs. Mild prominence of the ventricles and sulci consistent with parenchymal volume loss. Mild low-density white matter changes. No subarachnoid hemorrhage, subdural or epidural collections. CALVARIUM, SKULL BASE AND SOFT TISSUES: No calvarial fracture. Minimally angulated left nasal bone fracture. The paranasal sinuses and mastoid air cells are clear. Right prosthetic globe. Mild left periorbital contusion. CERVICAL SPINE: No fracture. No acute osseous abnormalities. No acute malalignment. Normal craniocervical and C1-C2 relationship. Mild degenerative changes. OTHER BONES: No acute abnormality. CERVICAL SOFT TISSUES AND LUNG APICES: Clear lung apices. Normal thyroid gland. IMPRESSION: 1. No evidence of acute intracranial abnormality. 2. Minimally angulated left nasal bone fracture. Please correlate with point tenderness. 3. Mild left periorbital contusion. 4. No acute fracture or subluxation of the cervical spine. I have personally reviewed the images and I agree with this report. WSN: [id number] Ordering Physician: Antony Cormier Dictated By: Rafaela Dunn DO Dictated Date/Time: 01/06/23 7:28 am Reviewed By: Levi Brandt MD Signed By: Levi Brandt MD Signed Date/Time: 01/06/23 7:33 am Transcribed By: EVY Transcribed Date/Time: 01/06/23 7:[address] Head WO contrast * [facility]SPowerscribe , CIS S: TRANSCRIBE Rafaela Dunn DO P: SIGN Levi Brandt MD: VERIFY Event Display: Result: Authored Date: [id number] CT Head/Brain W/O Contrast, CT Cervical Spine W/O Contrast INDICATION: Head trauma, mod-severe; Clinical Question(s): Hematoma. TECHNIQUE: Incremental CT without contrast through the head was formatted in axial and coronal plane. Spiral CT without contrast through the cervical spine was formatted in 3 planes. Weight-based protocol using automatic tube modulation was performed to optimize scan parameters. CTDIvol Body: 18.60 mGy, DLP Body: 408 mGy*cm. CTDIvol Head: 48.00 mGy, DLP Head: 966 mGy*cm. COMPARISON: None. FINDINGS: BRAIN and EXTRA-AXIAL SPACES: No parenchymal hemorrhage, midline shift or mass effect. Donahue-white matter differentiation is well preserved. No acute infarct. Calcification within the left frontal lobe, likely from prior trauma orinfection. Negative insular ribbon and hyperdense vessel signs. Mild prominence of the ventricles and sulci consistent with parenchymal volume loss. Mild low-density white matter changes. No subarachnoid hemorrhage, subdural or epidural collections. CALVARIUM, SKULL BASE AND SOFT TISSUES: No calvarial fracture. Minimally angulated left nasal bone fracture. The paranasal sinuses and mastoid air cells are clear. Right prosthetic globe. Mild left periorbital contusion. CERVICAL SPINE: No fracture. No acute osseous abnormalities. No acute malalignment. Normal craniocervical and C1-C2 relationship. Mild degenerative changes. OTHER BONES: No acute abnormality. CERVICAL SOFT TISSUES AND LUNG APICES: Clear lung apices. Normal thyroid gland. IMPRESSION: 1. No evidence of acute intracranial abnormality. 2. Minimally angulated left nasal bone fracture. Please correlate with point tenderness. 3. Mild left periorbital contusion. 4. No acute fracture or subluxation of the cervical spine. I have personally reviewed the images and I agree with this report. WSN: [id number] Ordering Physician: Antony Cormier Dictated By: Rafaela Dunn DO Dictated Date/Time: 01/06/23 7:28 am Reviewed By: Levi Brandt MD Signed By: Levi Brandt MD Signed Date/Time: 01/06/23 7:33 am Transcribed By: CSB Transcribed Date/Time: 01/06/23 7:[address] Abdomen and Pelvis W contrast IV * BHSPMACI driscoll S: TRANSCLISA Thurman MD, Olaf Hurt: VERIFY Dunnkeith DUGGANRafaela P: SIGN Event Display: Result: Authored Date: [id number] CT Chest W/ Contrast, CT Abd/Pelvis W/ IV Contrast Only INDICATION: Chest trauma, blunt; Clinical Question(s): Aortic hilar injury TECHNIQUE: Helical CT scan of the chest, abdomen, and pelvis with IV contrast, formatted in 3 planes. 100 cc of Omnipaque 300 was administered intravenously. This study was performed without oral contrast. Weight-based protocol was performed using automatic exposure control. CTDIvol Body: 17.70 mGy, DLP Body: 1227 mGy*cm. COMPARISON: MRI of the abdomen dated September 01, 2018, available under a different medical record ([id number]). FINDINGS: Seismograph Chief view findings, lines and tubes: None. Trachea and airways: Patent without evidence of tracheal or endobronchial lesion. Lungs and pleura: Patchy consolidation or atelectasis in the posterior lung bases. No effusion or pneumothorax. Mediastinum and rafaela: No mass or hematoma. No mediastinal or hilar lymphadenopathy. No esophageal abnormality. Paraesophageal varicoses distally. Normal thyroid. Heart: Cardiomegaly. Mild aortic valvular and severe mitral annular calcification. No pericardial effusion. Aorta: Minimal vascular calcification but no aneurysm. Pulmonary arteries: Normal caliber. No evidence of pulmonary embolism on this study performed without angiographic technique. Chest wall soft tissues: No acute abnormality. Diaphragm: Intact. Liver: Cirrhotic liver. 1.5 cm hypodense lesion in segment 4A measuring 21 Hounsfield units (201:82). This correlates with a simple cyst described on MRI from 2018, available under a different medical record number, similar in size. Gallbladder: Status post cholecystectomy. Bile ducts: No biliary ductal dilation. Spleen: Mild splenomegaly measuring 14.3 cm AP. Small splenic granuloma. Pancreas: No suspicious lesion or ductal dilatation. Adrenal glands: No nodule. Kidneys and ureters: Atrophic kidneys with diffuse cortical scarring. Evaluation for suspicious lesion is suboptimal, but the appearance is similar to prior.. No obstructing stone, hydronephrosis or hydroureter. Bladder: Partially obscured by streak artifact. Grossly unremarkable. Reproductive organs: Probable calcified fibroids within the uterus, which appears adhesed to the anterior abdominal wall.. Ovaries are unremarkable. Stomach, small bowel, and large bowel: No bowel obstruction. Mild colonic diverticulosis without evidence of acute diverticulitis. Appendix: No evidence of acute appendicitis. Peritoneum and retroperitoneum: No ascites or pneumoperitoneum. No omental or mesenteric lesions. Lymph nodes: No enlarged lymph nodes. Blood vessels: Mild vascular calcifications but no aneurysm. No evidence of venous thrombosis. Extensive paraesophageal and splenic varicosities with evidence of splenorenal shunting. Abdominal and pelvic wall soft tissues: Diastases of the rectus abdominis with mild protrusion of bowel loops. Contusion versus asymmetric edema along the left hip wall. Diffuse soft tissue edema. Bones: Age indeterminate compression deformities of T11 to L4 superior endplate (208:69 and 70). A few of these were likely present on prior chest radiograph from 2019 but were otherwise not previously imaged. Status post right proximal femur ORIF without complication. Status post left total arthroplasty without complication. IMPRESSION: Age indeterminate mild compression deformities from T11 to L4 superior endplates. No retropulsion or other acute sequelae of trauma. Patchy consolidation or atelectasis in the lung bases, with early aspiration or pneumonia possible in the proper clinical setting. Cirrhotic liver with stigmata of portal hypertension including splenomegaly, paraesophageal and splenic varicosities with splenorenal shunting. Preliminary results were conveyed via telephone by Dr. Dunn to Dr. Linda Arguelles on 01/06/2023 at 7:40 AM with understanding acknowledged. The final impression above was relayed to Antony Cormier DO by Dr. Olaf Thurman over the phone on 01/06/2023 at 8:09 AM. I have personally reviewed the images and I agree with this report. WSN: [id number] Ordering Physician: Antony Cormier Dictated By: Rafaela Dunn DO Dictated Date/Time: 01/06/23 8:13 am Reviewed By: Olaf Thurman MD Signed By: Olaf Thurman MD Signed Date/Time: 01/06/23 8:18 am Transcribed By: EVY Transcribed Date/Time: 01/06/23 7:[address] Chest W contrast IV * [facility] , CIS S: TRANSCRIBE Olaf Thurman MD: VERIFY Rafaela Dunn DO P: SIGN Event Display: Result: Authored Date: [id number] CT Chest W/ Contrast, CT Abd/Pelvis W/ IV Contrast Only INDICATION: Chest trauma, blunt; Clinical Question(s): Aortic hilar injury TECHNIQUE: Helical CT scan of the chest, abdomen, and pelvis with IV contrast, formatted in 3 planes. 100 cc of Omnipaque 300 was administered intravenously. This study was performed without oral contrast. Weight-based protocol was performed using automatic exposure control. CTDIvol Body: 17.70 mGy, DLP Body: 1227 mGy*cm. COMPARISON: MRI of the abdomen dated September 01, 2018, available under a different medical record ([id number]). FINDINGS: Seismograph Chief view findings, lines and tubes: None. Trachea and airways: Patent without evidence of tracheal or endobronchial lesion. Lungs and pleura: Patchy consolidation or atelectasis in the posterior lung bases. No effusion or pneumothorax. Mediastinum and rafaela: No mass or hematoma. No mediastinal or hilar lymphadenopathy. No esophageal abnormality. Paraesophageal varicoses distally. Normal thyroid. Heart: Cardiomegaly. Mild aortic valvular and severe mitral annular calcification. No pericardial effusion. Aorta: Minimal vascular calcification but no aneurysm. Pulmonary arteries: Normal caliber. No evidence of pulmonary embolism on this study performed without angiographic technique. Chest wall soft tissues: No acute abnormality. Diaphragm: Intact. Liver: Cirrhotic liver. 1.5 cm hypodense lesion in segment 4A measuring 21 Hounsfield units (201:82). This correlates with a simple cyst described on MRI from 2018, available under a different medical record number, similar in size. Gallbladder: Status post cholecystectomy. Bile ducts: No biliary ductal dilation. Spleen: Mild splenomegaly measuring 14.3 cm AP. Small splenic granuloma. Pancreas: No suspicious lesion or ductal dilatation. Adrenal glands: No nodule. Kidneys and ureters: Atrophic kidneys with diffuse cortical scarring. Evaluation for suspicious lesion is suboptimal, but the appearance is similar to prior.. No obstructing stone, hydronephrosis or hydroureter. Bladder: Partially obscured by streak artifact. Grossly unremarkable. Reproductive organs: Probable calcified fibroids within the uterus, which appears adhesed to the anterior abdominal wall.. Ovaries are unremarkable. Stomach, small bowel, and large bowel: No bowel obstruction. Mild colonic diverticulosis without evidence of acute diverticulitis. Appendix: No evidence of acute appendicitis. Peritoneum and retroperitoneum: No ascites or pneumoperitoneum. No omental or mesenteric lesions. Lymph nodes: No enlarged lymph nodes. Blood vessels: Mild vascular calcifications but no aneurysm. No evidence of venous thrombosis. Extensive paraesophageal and splenic varicosities with evidence of splenorenal shunting. Abdominal and pelvic wall soft tissues: Diastases of the rectus abdominis with mild protrusion of bowel loops. Contusion versus asymmetric edema along the left hip wall. Diffuse soft tissue edema. Bones: Age indeterminate compression deformities of T11 to L4 superior endplate (208:69 and 70). A few of these were likely present on prior chest radiograph from 2019 but were otherwise not previously imaged. Status post right proximal femur ORIF without complication. Status post left total arthroplasty without complication. IMPRESSION: Age indeterminate mild compression deformities from T11 to L4 superior endplates. No retropulsion or other acute sequelae of trauma. Patchy consolidation or atelectasis in the lung bases, with early aspiration or pneumonia possible in the proper clinical setting. Cirrhotic liver with stigmata of portal hypertension including splenomegaly, paraesophageal and splenic varicosities with splenorenal shunting. Preliminary results were conveyed via telephone by Dr. Dunn to Dr. Linda Arguelles on 01/06/2023 at 7:40 AM with understanding acknowledged. The final impression above was relayed to Antony Cormier DO by Dr. Olaf Thurman over the phone on 01/06/2023 at 8:09 AM. I have personally reviewed the images and I agree with this report. WSN: [id number] Ordering Physician: Antony Cormier Dictated By: Rafaela Dunn DO Dictated Date/Time: 01/06/23 8:13 am Reviewed By: Olaf Thurman MD Signed By: Olaf Thurman MD Signed Date/Time: 01/06/23 8:18 am Transcribed By: EVY Transcribed Date/Time: 01/06/23 7:49 am Portable XR Chest Views * BHSPowerscrihelio , MACI S: TRANSCRIBE Donato ZEPEDA, Jack: BETSY Bautista MD, Prabhjot V: VERIFY Event Display: Result: Authored Date: [id number] Chest Portable INDICATION: Chest pain after trauma, concern for fracture. COMPARISON: None. FINDINGS: LINES AND TUBES: None. LUNGS AND PLEURA: Hazy opacification of the bilateral costophrenic angles with patchy opacities in the lower lung regions. No pneumothorax. HEART, MEDIASTINUM AND RAFAELA: Heart is normal in size. Normal mediastinal and hilar contour. BONES AND SOFT TISSUES: Subtle nondisplaced seventh left anterolateral rib fracture. IMPRESSION: Small bilateral pleural effusions. Patchy opacities in the lower lung regions which may represent atelectasis and/or pneumonia. Subtle nondisplaced seventh left anterolateral rib fracture. I have personally reviewed the images and I agree with this report. WSN: [id number] Ordering Physician: Antony Cormier Dictated By: Jack Sewell MD Dictated Date/Time: 01/06/23 8:45 am Reviewed By: Prabhjot Bautista MD, V Signed By: Prabhjot Bautista MD, V Signed Date/Time: 01/06/23 8:50 am Transcribed By: EVY Transcribed Date/Time: 01/06/23 8:39 am Patient Care team information Care Team Personnel Name: Imelda Mayo Position: [facility] Onco RN Member Role: Primary Care Nurse Name: Melissa Alexander Position: [facility] RN Member Role: Primary Care Nurse Name: Krystal Bruner RN Position: [facility] RN Member Role: Primary Care Nurse Name: Dallas Dennis RN Position: [facility] ED RN W/OE and Tasks Member Role: Primary Care Nurse Name: Dilia Bond RN Position: [facility] PCO RN Member Role: Primary Care Nurse Name: Chelly Dickerson RN Position: [facility] RN Member Role: Primary Care Nurse Name: Mundo Almeida RN Position: [facility] RN Member Role: Primary Care Nurse Name: Lary Johnson RN Position: [facility] RN Member Role: Primary Care Nurse Name: Irlanda Hauser RN Position: [facility] RN Member Role: Primary Care Nurse Name: Claire Jarrell RN Position: [facility] RN Member Role: Primary Care Nurse Name: Charo Becker NP Position: [facility] PCO Associate Professional Member Role: Primary Care Nurse Address: Address: [address] [place] [id number]- Name: Holly Alvarez RN Position: S RN Member Role: Primary Care Nurse Name: Kacey Carr Position: [facility] RN Member Role: Primary Care Nurse Name: Mary Alice Martins RN Position: [facility] Hospital Applied Behavior Science Specialist Member Role: Primary Care Nurse Name: Not on Staff, PCP Position: [facility] Physician (General Medicine) Member Role: PCP Name: Kate Agosto RN Position: [facility] RN Member Role: Primary Care Nurse Name: Alana Reaves RN Position: [facility] RN Member Role: Primary Care Nurse Name: Brenda Licona RN Position: [facility] RN Member Role: Primary Care Nurse Name: Marjorie Patton RN Position: [facility] RN Member Role: Primary Care Nurse Name: Rosy Mcneill RN Position: [facility] RN Member Role: Primary Care Nurse Name: [facility]vin[facility] Attending Position: [facility] ED Medicine MD Name: Jayda Vizcarra RN Position: [facility] ED RN W/OE and Tasks Member Role: Patient Care Provider Name: Linda Cook Position: [facility] ED TA [facility] Member Role: Patient Care Provider Name: Uriel Castillo MD Position: [facility] Resident Member Role: ED Resident Address: Address: [address] [place] [address] [place] [address]- Name: Kacey Yeung Position: [facility] ED OA Charge Member Role: ED Associate Care Team Related Persons Name: ALBINA BEASLEY Address: [place] [address]
--- OUTSIDE RECORDS SUMMARY | 2023-06-27 23:41 | XMS_ITS | Continuity of Care Document ---
Author Name Unknown Organization [facility] Address [address] [place] [address]- Care Team Providers Care Straightening Roll Operator Name Role Phone Justyn ZEPEDA, Leonardo Catherine Primary Care Physician Encounter [facility] [place] Date(s): 02/10/22 - 03/12/22 [facility] [address] [place] [id number] Attending Physician: Mahesh Felipe Admitting Physician: AdmtrMahesh Referring Physician: Admtr, ArLynda Allergies, Adverse Reactions, Alerts Substance Reaction Severity [...] 11/03/21 10:40:00 EST, Route to Pharmacy Electronically, [facility], Partial fill upon patient request [...] 5 Refills, Maintenance, 12/01/20 14:43:00 EST, Powder, [id number], Partial fill upon patient request if the prescription is for a schedule II opioid drug., 1 puffs Inha... Start Date: 12/01/20 Status: Ordered Problem List Condition Effective Dates Status Health Status Inform ant Alcoholism(Confirmed) Active Altered mental status(Confirmed) Active ASTHMA(Confirmed) Active Stroke(Confirmed) Active Chest pain(Confirmed) 9/21/12 Active Liver cirrhosis(Confirmed) Active Depression(Confirmed) Active Hepatitis C(Confirmed) Active HYPERTENSION(Confirmed) Active Respiratory failure with hypoxia(Confirmed) Active Subacute infective endocarditis(Confirmed) Active Obese class I(Confirmed) Active Thrombocytopenia(Confirmed) Active COPD, severe(Confirmed) Active Unresponsiveness(Confirmed) Active Social History Social History Type Response Smoking Status Former smoker, quit more than 30 days ago entered on: 10/12/21 Sex
--- OUTSIDE RECORDS SUMMARY | 2023-06-27 23:41 | XMS_ITS | Continuity of Care Document ---
Author Name Unknown Organization [facility] Address [address] [place] [id number]- Care Team Providers Care Back Closer Name Role Phone Ta MAHONEY, Alex Primary Care Physician [place] [facility] [place](s): 12/04/20 - 01/14/[address] [id number] Attending Physician: José Miguel Flynn MD Admitting Physician: José Miguel Flynn MD Referring Physician: José Miguel Flynn MD Allergies, Adverse Reactions, Alerts No Known Medication [...] 5 Refills, Maintenance, 12/01/20 14:43:00 EST, Powder, [id number], Partial fill upon patient request if the [...]
--- OUTSIDE RECORDS SUMMARY | 2023-06-27 23:41 | XMS_ITS | Continuity of Care Document ---
Author Name Unknown Organization [facility] Address [address] [place] [address]- Care Team Providers Care Ordering Machine Operator Name Role Phone Ta MAHONEY, Alex Primary Care Physician Encounter [facility] [place] Date(s): 12/18/20 - 01/29/[address] [id number] Attending Physician: José Miguel Flynn MD Admitting [...] 5 Refills, Maintenance, 12/01/20 14:43:00 EST, Powder, [id number], Partial fill upon patient request if the prescription is for a schedule II opioid drug., 1 puffs Inha... Start Date: 1/25/21 Status: Ordered vancomycin 25 mg/mL oral liquid [...]
--- OUTSIDE RECORDS SUMMARY | 2023-06-27 23:41 | XMS_ITS | Continuity of Care Document ---
Author Name Unknown Organization [facility] Address [address] [place] [address]- Care Team Providers Care Medicaid Collection Specialist Name Role Phone Ta MAHONEY, Alex Primary Care Physician Encounter [facility] [place] Date(s): 04/03/21 - 05/03/21 [facility] [address] [place], [place] [address] Attending Physician: Mahesh Felipe Admitting Physician: AdmMahesh juarez Referring Physician: AdmtrMahesh Allergies, Adverse Reactions, Alerts Substance Reaction Severity [...] Date: 05/12/13 Stop Date: 07/11/13 Status: Ordered benzonatate 100 mg oral capsule TAKE 1 CAPSULE BY MOUTH THREE TIMES DAILY NEEDED FOR COUGH Start Date: 03/27/21 Status: Ordered escitalopram 20 mg oral tablet [...] opioid drug. Start Date: 04/03/21 Status: Ordered Loratadine 10 mg, By Mouth, Daily, Maintenance, 09/16/11 10:38:23 Start Date: 09/16/11 Status: Ordered multivitamin Multiple Vitamins oral capsule 1 capsule, By Mouth, Daily, # 30 capsule, 0 Refills, Maintenance, 04/03/21 15:05:00 EDT, Capsule, Partial fill upon patient request if the prescription is for a schedule II opioid drug. Start Date: 04/03/21 Status: Ordered naltrexone 50 mg oral tablet 1 tablet = 50 mg, By Mouth, Daily, # 30 tablet, 0 Refills, Acute 05/06/21 21:00:00 EDT, 04/03/21 15:05:00 EDT, Tablet, Partial fill upon patient request if the prescription is for a schedule II opioid drug. Start Date: 04/03/21 Stop Date: 05/06/21 Status: Ordered Nicotine = 7 mg, Topically, Daily, 0 Refills, Maintenance, 07/25/19 8:05:31 EDT, Patch Start Date: 07/25/19 Status: Ordered Prilosec 20 mg oral enteric [...] tablet, Refills 0, Tot. Refills 0, Maintenance, 05/28/21 15:06:00 EDT, Print Requisition, Partial fill upon patient request if the prescription is fora schedule II opioid drug. Start Date: 04/03/21 Status: Ordered Trelegy Ellipta 200 mcg-62.5 mcg-25 mcg/inh inhalation powder 1 puffs, Inhalation, Daily, at the same time every day, # 1 each, 5 Refills, Maintenance, 12/01/20 14:43:00 EST, Powder, [id number], Partial fill upon patient request if the [...]
--- OUTSIDE RECORDS SUMMARY | 2023-06-27 23:41 | XMS_ITS | Continuity of Care Document ---
Author Name Unknown Organization [facility] Address [address] [place] [address]- Care Team Providers Care Sheet Metal Worker Maintenance Name Role Phone Alex Chappell NP Primary Care Physician [phone] Encounter [facility] [place] Date(s): 04/03/21 - 07/18/21 [facility] [address], [place] [address] Dis[facility] Disposition: A-D/C Home Attending Physician: Shanique Oscar MD Admitting Physician: Shanique Oscar MD Referring Physician: Alex Chappell NP Allergies, Adverse Reactions, Alerts Substance Reaction Severity [...] opioid drug. Start Date: 04/03/21 Status: Ordered Nicotine = 7 mg, Topically, [...] 5 Refills, Maintenance, 12/01/20 14:43:00 EST, Powder, [facility] #[id number], Partial fill upon patient request if the [...]
--- OUTSIDE RECORDS SUMMARY | 2023-06-27 23:41 | XMS_ITS | Continuity of Care Document ---
Author Name Unknown Organization [facility] Address [address] [place] [address]- Care Team Providers Care Powerhouse Laborer Name Role Phone Ta MAHONEY, Alex Primary Care Physician Encounter [facility] [place] Date(s): 03/26/21 - 04/03/[address] [address] Discharge Disposition: A-D/C Home Attending Physician: Enrrique De La Cruz MD, Moreno Admitting Physician: Judith Noel MD Referring Physician: Not on Staff, Referring [...] Date: 05/12/13 Stop Date: 07/11/13 Status: Ordered Augmentin 500 mg-125 mg oral tablet 1 tablet, By Mouth, Every 12 hours, for 5 days, for UTI, # 10 tablet, 0 Refills, Acute 04/08/21 20:15:00 EDT, 04/03/21 20:15:00 EDT, Tablet, [facility] #[id number], Partial fill upon patient request if the prescription is for a schedule II opioid... Start Date: 04/03/21 Stop Date: 04/08/21 Status: Ordered benzonatate 100 mg oral capsule TAKE 1 CAPSULE BY MOUTH THREE TIMES DAILY NEEDED FOR COUGH Start Date: 03/27/21 Status: Ordered diazepam 5 mg oral tablet 5 mg, 1, tablet, By Mouth, Daily, for 3 days, # 3 tablet, Refills 0, Tot. Refills 0, Acute 04/06/2115:04:00 EDT, 04/03/21 15:04:00 EDT, Print Requisition, Partial fill upon patient request if the prescription is for a schedule II opioid drug. Start Date: 04/03/21 Stop Date: 04/06/21 Status: Ordered escitalopram 20 mg oral tablet [...] 5 Refills, Maintenance, 12/01/20 14:43:00 EST, Powder, [facility] #[id number], Partial fill upon patient request if the [...] endocarditis(Confirmed) Active COPD, severe(Confirmed) Active Unresponsiveness(Confirmed) Active Results Orders for Microbiology Reports Name Date Urine Culture (URINE CULTURE) 04/02/21 Microbiology Reports TEST:Urine Culture STATUS:Unauthenticated BODY SITE: SOURCE:URINE COLLECTED DATE/TIME:04/02/21 5:00 AM Urine Culture SPECIMEN DESCRIPTION : URINE SPECIAL REQUESTS : NONE CULTURE : >100,000 COL/ML STREPTOCOCCUS SPECIES REPORT STATUS : PRELIMINARY REPORT Radiology Reports * Exam Date Time Procedure Performing Provider Status 03/27/21 1:22 AM Chest Portable Bipin Fritz; Auth ( Verified) Notes: (Chest Portable) Reason For Exam: et pulled back per CT;Tube Placement RESULT: Chest Portable Chest Portable REASON: Tube Placement; et pulled back per CT. COVID negative. Hypoxic hypercarbic respiratory failure. Multiple comorbidities. COMPARISON: Multiple priors, most recent 03/26/2021. FINDINGS: LINES AND TUBES: Endotracheal tube tip is still at the level of the nel. Enteric tube terminating within the stomach. LUNGS AND PLEURA: Low lung volumes with mild basilar atelectasis. Lungs are otherwise clear with no consolidation. No pleural effusion. No pneumothorax. HEART, MEDIASTINUM AND GUILLERMINA: Unchanged. Aorta is calcified. BONES AND SOFT TISSUES: No acute abnormality. IMPRESSION: Endotracheal tube still terminates at the level of the nel, recommend pullback about 2 cm. Low lung volumes with bibasilar atelectasis. A [place] message has been communicated via the Badge system on 03/27/2021 8:41 AM, Message ID [id number]. I have personally reviewed the images and I agree with this report. WSN: [id number] Ordering Physician: Scarlett Dill Dictated By: Rafaela Dunn DO Dictated Date/Time: 03/27/21 9:41 am Reviewed By: Leonardo Manuel MD Signed By: Leonardo Manuel MD Signed Date/Time: 03/27/21 9:46 am Transcribed By: EVY Transcribed Date/Time: 03/27/21 8:41 am * Exam Date Time Procedure Performing Provider Status 03/26/21 5:46 PM Chest Portable Edith Arevalo; Auth (Ve rified) Notes: (Chest Portable) Reason For Exam: Cough RESULT: Chest Portable AP portable chest, INDICATION: Reason: Cough; Clinical Question(s): Pleural Effusion COMPARISON: 08/23/2019 FINDINGS: LINES AND TUBES: NG tube ends in the stomach. Endotracheal tube is 1.5 cm above the nel. LUNGS AND PLEURA AND MEDIASTINUM: There is no pneumothorax or pleural effusion. Heart size is within normal limits. No focal consolidation. Pulmonary vascular congestion suggested. IMPRESSION: Endotracheal tube 1.5 cm above nel. NG tube ends in the stomach. Pulmonary vascular congestion. WSN: [id number] Ordering Physician: Paramjit Hester Dictated By: Mackenzie Way MD Dictated Date/Time: 03/26/21 5:54 pm Reviewed By: Mackenzie Way MD Signed By: Mackenzie Way MD Signed Date/Time: 03/26/21 5:54 pm Transcribed By: EVY Transcribed Date/Time: 03/26/21 5:52 pm Vital Signs Most recent to oldest [Reference Range]: 1 2 3 Weight 65.7 kg (04/03/21 4:46 AM) 65.8 kg (04/02/21 3:26 AM) 68 kg (04/01/21 2:26 AM) Oxygen Saturation [94-100 %] 95 % (04/03/21 12:20 PM) 97 % (04/03/21 8:18 AM) 95 % (04/03/21 4:46 AM) Pulse Rate [55-90 bpm] 79 bpm (04/03/21 12:20 PM) 84 bpm (04/03/21 8:18 AM) 83 bpm (04/03/21 4:46 AM) Blood Pressure [90-138/55-84 mm Hg] 114/67mm Hg (04/03/21 12:20 PM) 108/53mm Hg (04/03/21 8:18 AM) 105/71mm Hg (04/03/21 4:46 AM) Respiratory Rate [16-30 br/min] 20 br/min (04/03/21 12:20 PM) 20 br/min (04/03/21 8:18 AM) 18 br/min (04/03/21 4:46 AM) Temperature [96.8-100.4 DegF] 98.4 DegF (04/03/21 12:20 PM) 98.5 DegF (04/03/21 8:18 AM) 98.5 DegF (04/03/21 4:46 AM) Liters per Minute 2 L/min (03/29/21 9:50 PM) 2 L/min (03/28/21 11:41 PM) 1 L/min (03/28/21 11:00 PM) Mode of Delivery (Oxygen) Room air (04/03/21 12:20 PM) Room air (04/03/21 8:18 AM) Room air (04/03/21 4:46 AM) Blood pressure sites Arm, left (04/03/21 12:20 PM) Arm, left (04/03/21 8:18 AM) Arm, left (04/03/21 4:46 AM) Temperature Route Oral (04/03/21 12:20 PM) Oral (04/03/21 8:18 AM) Oral (04/03/21 4:46 AM) Dry Weight 65.8 kg (04/02/21 3:26 AM) Weight Obtained Via Bed scale (04/03/21 4:46 AM) Bed scale (04/02/21 3:26 AM) Bed scale (04/01/21 2:26 AM)
--- OUTSIDE RECORDS SUMMARY | 2023-06-27 23:41 | XMS_ITS | Continuity of Care Document ---
Author Name Unknown Organization [facility] Address [address] [place] [address]- Care Team Providers Care Obgyn Specialist Name Role Phone Justyn ZEPEDA, Leonardo Catherine Primary Care Physician [phone] Encounter [facility] [place] Date(s): 10/11/21 - 10/13/[address] [address]- Encounter Diagnosis Facial weakness(Final) - 10/11/21 Discharge Disposition: A-D/C Home Attending Physician: Deep Harrell MD Admitting Physician: Anish Salinas DO Referring Physician: Not on Staff, Referring MD [...] 0 Refills, Maintenance, 10/13/21 15:49:00 EST, Tablet, [facility], Partial fill upon patient request if [...] 5 Refills, Maintenance, 12/01/20 14:43:00 EST, Powder, [facility] #[id number], Partial fill upon patient request if the [...] Thrombocytopenia(Confirmed) Active COPD, severe(Confirmed) Active Unresponsiveness(Confirmed) Active Procedures Procedure Date Related Diagnosis Body Site Status Right eye removal with implant 2013 Completed EGD - Esophagogastroduodenoscopy Completed Results Orders for Microbiology Reports Name Date Blood Culture 10/12/21 Blood Culture #2 10/12/21 Microbiology Reports TEST:Blood Culture, Second Order STATUS:Unauthenticated BODY SITE: SOURCE:Blood COLLECTED DATE/TIME:10/12/21 6:14 PM Blood Culture, Second Order SPECIMEN DESCRIPTION : BLOOD RIGHT WRIST SPECIAL REQUESTS : NONE CULTURE : NO GROWTH AFTER 24 HOURS REPORT STATUS : PRELIMINARY REPORT TEST:Blood Culture STATUS:Unauthenticated BODY SITE: SOURCE:Blood COLLECTED DATE/TIME:10/12/21 6:10 PM Blood Culture SPECIMEN DESCRIPTION : BLOOD RAC SPECIAL REQUESTS : NONE CULTURE : NO GROWTH AFTER 24 HOURS REPORT STATUS : PRELIMINARY REPORT Radiology Reports * Exam Date Time Procedure Performing Provider Status 10/11/21 10:21 PM Chest Portable Fabrizio Kinney; Auth (V erified) Notes: (Chest Portable) Reason For Exam: Stroke;Other: RESULT: Chest Portable Chest Portable Hx of Present Illness: patient marian garcia in [place] was noon fell today and yesterday.. was found by neighbor inthe kitchen? was up and walking, cconfused, R sided facial droop and gaze, RUE weakness and slurred speech no obvious deformities... patient speaking in full sentances...; Reason: Other:; Stroke; Clinical Question(s): CHF COMPARISON: Priors, most recent dated 03/27/2021 FINDINGS: LINES AND TUBES: None. LUNGS AND PLEURA: Minimal left retrocardiac opacity may be due to atelectasis. No other focal pulmonary opacities seen. No pleural effusion. No pneumothorax. HEART, MEDIASTINUM AND GUILLERMINA: Stable island or sclerotic silhouette. Normal upper mediastinal and hilar contour. BONES AND SOFT TISSUES: No acute abnormality. IMPRESSION: Minimal left retrocardiac opacity may be due to atelectasis. Stable mild enlarged cardiac silhouette. WSN: [id number] Ordering Physician: Francesca Villalba Dictated By: Christiane Molina MD Dictated Date/Time: 10/11/21 10:26 p Reviewed By: Christiane Molina MD Signed By: Christiane Molina MD Signed Date/Time: 10/11/21 10:26 pm Transcribed By: EVY Transcribed Date/Time: 10/11/21 10:24 pm Vital Signs Most recent to oldest [Reference Range]: 1 2 3 Height 157.48 cm (10/13/21 11:19 AM) 157.48 cm (10/13/21 8:09 AM) 157.48 cm (10/13/21 4:33 AM) Weight 70.8 kg (10/12/21 9:08 PM) Oxygen Saturation [94-100 %] 98 % (10/13/21 3:00 PM) 98 % (10/13/21 11:19 AM) 97 % (10/13/21 8:09 AM) Pulse Rate [55-90 bpm] 79 bpm (10/13/21 3:00 PM) 78 bpm (10/13/21 11:19 AM) 75 bpm (10/13/21 8:09 AM) Body Mass Index [18.5-24.99] 28.55 *H* (10/12/21 9:08 PM) Blood Pressure [90-138/55-84 mm Hg] 143/70mm Hg *H* (10/13/21 3:00 PM) 141/79mm Hg *H* (10/13/21 11:19 AM) 129/70mm Hg (10/13/21 8:09 AM) Respiratory Rate [16-30 br/min] 20 br/min (10/13/21 3:00 PM) 17 br/min (10/13/21 11:19 AM) 17 br/min (10/13/21 8:09 AM) Temperature [96.8-100.4 DegF] 98.1 DegF (10/13/21 3:00 PM) 97.1 DegF (10/13/21 11:19 AM) 98.5 DegF (10/13/21 8:09 AM) Mode of Delivery (Oxygen) Room air (10/13/21 3:00 PM) Room air (10/13/21 11:19 AM) Room air (10/13/21 8:09 AM) Blood pressure sites Arm, left (10/13/21 3:00 PM) Arm, right (10/13/21 11:19 AM) Arm, right (10/13/21 8:09 AM) Temperature Route Temporal (10/13/21 3:00 PM) Temporal (10/13/21 11:19 AM) Oral (10/13/21 8:09 AM) Dry Weight 70.8 kg (10/12/21 9:08 PM) Weight Obtained Via Bed scale (10/12/21 9:08 PM) Dry Weight Obtained Via Bed scale (10/12/21 9:08 PM) Social History Social History Type Response Smoking Status Former smoker, quit more than 30 days ago entered on: 10/12/21 Sex
--- OUTSIDE RECORDS SUMMARY | 2023-06-27 23:41 | XMS_ITS | Continuity of Care Document ---
Author Name Unknown Organization [facility] Address [address] [place] [address]- Care Team Providers Care Supervisor Grove Name Role Phone Justyn ZEPEDA, Leonardo Catherine Primary Care Physician Encounter [facility] [place] Date(s[place] 10/24/21 - 11/03/[address] [address]- Encounter Diagnosis Overdose(Final) - 10/24/21 COVID-19(Final) - 10/24/21 Discharge Disposition: A-D/C Home Attending Physician: Leonardo Daniels MD Admitting Physician: Mary Shea MD Referring Physician: Not on Staff, Referring [...] 2 each, 1 Refills, Maintenance Start Date: 7/6/13 Stop Date: 07/11/13 Status: Ordered ALPRAZolam 0.5 mg oral tablet 0.5 mg, 1, tablet, By Mouth, 2 times a day, PRN, for 15 days, # 30 tablet, Refills 0, Tot. Refills 0, Acute 11/18/21 10:40:00 EST, Anxiety, 11/03/21 10:40:00 EST, Route to Pharmacy Electronically, [facility], Partial fill upon patient re... Start Date: 11/03/21 Stop Date: 11/18/21 Status: Ordered carvedilol 6.25 mg oral tablet 6.25 mg, 1, tablet, By Mouth, 2 times a day, # 60 tablet, Refills 0, Tot. Refills 0, Maintenance, 11/03/21 10:40:00 EST, Route to Pharmacy Electronically, [facility], Partial fill upon patient request if the prescription is for a schedul... Start Date: 11/03/21 Status: Ordered carvedilol 6.25 mg oral tablet 6.25 mg, Tablet, By Mouth, 11/03/21 9:00:00 EST Start Date: 11/03/21 Stop Date: 11/03/21 Status: Completed escitalopram 20 mg oral tablet 1 tablet [...] 5 Refills, Maintenance, 12/01/20 14:43:00 EST, Powder, [facility] #[id number], Partial fill upon patient request if the [...] Thrombocytopenia(Confirmed) Active COPD, severe(Confirmed) Active Unresponsiveness(Confirmed) Active Results Orders for Microbiology Reports Name Date Anaerobic Culture (ANAEROBIC CULTURE) Blood Culture 10/24/21 Blood Culture #2 10/24/21 Microbiology Reports TEST:Anaerobic Culture STATUS:Auth (Verified) BODY SITE: SOURCE:PLEURA COLLECTED DATE/TIME:10/26/21 10:15 AM Anaerobic Culture SPECIMEN DESCRIPTION : PLEURAL FLUID RIGHT SPECIAL REQUESTS : NONE CULTURE : NO ANAEROBES ISOLATED REPORT STATUS : FINAL 10/31/2021 TEST:Blood Culture STATUS:Auth (Verified) BODY SITE: SOURCE:Blood COLLECTED DATE/TIME:10/24/21 2:45 PM Blood Culture SPECIMEN DESCRIPTION : BLOOD LAC SPECIAL REQUESTS : NONE CULTURE : NO GROWTH 5 DAYS. REPORT STATUS : FINAL 10/29/2021 TEST:Blood Culture, Second Order STATUS:Auth (Verified) BODY SITE: SOURCE:Blood COLLECTED DATE/TIME:10/24/21 2:45 PM Blood Culture, Second Order SPECIMEN DESCRIPTION : BLOOD RAC SPECIAL REQUESTS : NONE CULTURE : NO GROWTH 5 DAYS. REPORT STATUS : FINAL 10/29/2021 Radiology Reports * Exam Date Time Procedure Performing Provider Status 10/26/21 6:02 PM Chest Portable Gian Ann; Auth (Verified) Notes: (Chest Portable) Reason For Exam: Wheezing;Shortness of Breath RESULT: Chest Portable Chest Portable REASON: Shortness of Breath; Wheezing; Clinical Question(s): Pneumonia / Pneumonia COMPARISON: 10/24/2021 FINDINGS: LINES AND TUBES: None. LUNGS AND PLEURA: Hazy multifocal bilateral airspace opacity, slightly worsened from prior. No pleural effusion. No pneumothorax. HEART, MEDIASTINUM AND GUILLERMINA: Heart appears enlarged but this is likely exaggerated by technique. Aorta is mildly calcified. BONES AND SOFT TISSUES: No acute abnormality. IMPRESSION: COVID-19 pneumonia, slightly worsened. WSN: [id number] Ordering Physician: Queenie Blackmon Dictated By: Levi Andrade MD Dictated Date/Time: 10/26/21 6:04 pm Reviewed By: Levi Andrade MD Signed By: Levi Andrade MD Signed Date/Time: 10/26/21 6:04 pm Transcribed By: EVY Transcribed Date/Time: 10/26/21 6:03 pm * Exam Date Time Procedure Performing Provider Status 10/24/21 1:37 PM Chest Portable Justine Hayes; Aut h (Verified) Notes: (Chest Portable) Reason For Exam: Shortness of Breath RESULT: Chest Portable Chest Portable Reason: Shortness of Breath; Clinical Question(s): CHF COMPARISON: 10/11/2021 FINDINGS: LINES AND TUBES: None. LUNGS AND PLEURA: Low lung volumes. Moderate multifocal airspace and interstitial opacities. Trace right effusion. No pneumothorax. HEART, MEDIASTINUM AND GUILLERMINA: Heart is normal in size. Normal upper mediastinal and hilar contour. BONES AND SOFT TISSUES: No acute abnormality. IMPRESSION: Moderate multifocal airspace and interstitial opacities which could reflect multifocal pneumonia oredema. Correlate with fluid status. Correlate with COVID status. WSN: [id number] Ordering Physician: Jose Olvera Dictated By: Khari Duran MD Dictated Date/Time: 10/24/21 2:02 pm Reviewed By: Khari Duran MD Signed By: Khari Duran MD Signed Date/Time: 10/24/21 2:02 pm Transcribed By: EVY Transcribed Date/Time: 10/24/21 2:01 pm Vital Signs Most recent to oldest [Reference Range]: 1 2 3 Height 157.4 cm (11/03/21 4:47 AM) 157.4 cm (11/03/21 12:08 AM) 157.4 cm (11/02/21 7:46 PM) Weight 76.1 kg (10/25/21 9:37 AM) 76.1 kg (10/25/21 9:29 AM) Oxygen Saturation [94-100 %] 94 % (11/03/21 7:00 AM) 95 % (11/03/21 4:47 AM) 95 % (11/03/21 12:08 AM) Pulse Rate [55-90 bpm] 66 bpm (11/03/21 8:29 AM) 66 bpm (11/03/21 7:00 AM) 74 bpm (11/03/21 4:47 AM) Body Mass Index [18.5-24.99] 30.72 *>HHI* (10/25/21 9:37 AM) Blood Pressure [90-138/55-84 mm Hg] 112/45mm Hg (11/03/21 8:29 AM) 112/45mm Hg (11/03/21 7:00 AM) 113/64mm Hg (11/03/21 4:47 AM) Respiratory Rate [16-30 br/min] 16 br/min (11/03/21 7:00 AM) 16 br/min (11/03/21 4:47 AM) 17 br/min (11/03/21 12:08 AM) Temperature [96.8-100.4 DegF] 98.2 DegF (11/03/21 7:00 AM) 97.9 DegF (11/03/21 4:47 AM) 98.0 DegF (11/03/21 12:08 AM) Liters per Minute 2 L/min (10/31/21 8:00 AM) 2 L/min (10/30/21 11:21 PM) 2 L/min (10/30/21 7:44 PM) Mode of Delivery (Oxygen) Room air (11/03/21 7:00 AM) Room air (11/03/21 4:47 AM) Room air (11/03/21 12:08 AM) Blood pressure sites Arm, left (11/03/21 7:00 AM) Arm, left (11/03/21 4:47 AM) Arm, left (11/03/21 12:08 AM) Temperature Route Oral (11/03/21 7:00 AM) Oral (11/03/21 4:47 AM) Oral (11/03/21 12:08 AM) Dry Weight 76.1 kg (10/25/21 9:37 AM) Social History Social History Type Response Smoking Status Former smoker, quit more than 30 days ago entered on: 10/12/21 Sex
--- OUTSIDE RECORDS SUMMARY | 2023-06-27 23:41 | XMS_ITS | Continuity of Care Document ---
Author Name Unknown Organization [facility] Address [address] [place] [address]- Care Team Providers Care Cloth Layer Name Role Phone Leonardo Alejandra MD Primary Care Physician Encounter [facility] [place] Date(s): 09/21/21 - 10/21/21 [facility] [address] [place] [address]- Attending Physician: Mahesh Felipe Admitting Physician: AdmMahesh juarez Referring Physician: Mahesh Felipe Allergies, Adverse Reactions, Alerts Substance Reaction Severity [...] 0 Refills, Maintenance, 10/13/21 15:49:00 EST, Tablet, [facility], Partial fill upon patient [...] 5 Refills, Maintenance, 12/01/20 14:43:00 EST, Powder, [facility] #[id number], Partial fill upon patient request if the [...]
[2023-06-27 23:42] LABS: MANUAL DIFF FLAG SCAN
[2023-06-27 23:44] VITALS: BP 115/55; PULSE 97; RESP 20; O2SAT 92
[2023-06-27 23:45] LABS: B Type Natriuretic Peptide 1386 pg/mL (<100)
[2023-06-27 23:46] LABS: Troponin-I High Sensitivity 8.2 ng/L (<3.5-17.0)
[2023-06-27 23:57] LABS: SLIDE REVIEW VERIFIED
[2023-06-28] VITALS (35 sets, daily range): BP systolic 98–137; BP diastolic 43–76; PULSE 71–116; RESP 12–28; TEMP 36.1–37.9; O2SAT 92–98; BMI 38.1
--- NOTE | 2023-06-28 | ECG_ITS ---
Test Reason : SHORT OF BREATH Blood Pressure : / mmHG Vent. Rate : 088 BPM Atrial Rate : 088 BPM P-R Int : 138 ms QRS Dur : 086 ms QT Int : 364 ms P-R-T Axes : 061 -01 038 degrees QTc Int : 440 ms Normal sinus rhythm Possible Inferior infarct , age undetermined Abnormal ECG No previous ECGs available Referred By: Nikhil Butts Electronically Signed By:PEDRO WILLSON
[2023-06-28 00:08] LABS: Influenza A PCR NEGATIVE (Negative); Influenza B PCR NEGATIVE (Negative); Resp Syncy Virus RNA Qual PCR NEGATIVE (Negative); SARS COV2 PCR INHOUSE NEGATIVE (Negative)
[2023-06-28 00:35] LABS: Magnesium 2.2 mg/dL (1.6-2.6); Phosphorus 4.5 mg/dL (2.7-4.5)
--- NOTE | 2023-06-28 00:37 | PM.CCHP ---
History of Present Illness Date of Service: 06/28/23 Attending physician on admission: Tova Hughes Chief Complaint: HYPOXIC RESP FAILURE; PNA HPI: ?77-year-old female who still is smoker and has a history of COPD, obesity who states she had recently had the total hip arthroplasty a [facility] about 2 months ago was sent to the emergency room via EMS due to shortness of breath, cough with green sputum production and hypoxia as she was noted to have a low sat at the rehab facility, EMS found her to be hypoxic at 75% the patient was placed on 2 L and sick cannula and subsequently on CPAP for transport with improvement of her oxygenation to 93 and 94%. ? While in the emergency room, patient was noted to be hemodynamically stable, but was hypoxic without oxygen replacement, her workup was significant for white count 15 0.6, stable H&H, her ABG showed pH of 7.31, pCO2 67, PO2 88 in HC03 of 34, the patient was kept on BiPAP, chest x-ray showed what appears to be patchy perihilar and basilar opacities on the right side suspicious for pneumonia.? Patient was given steroids, breathing treatments, treated with Rocephin then Zosyn, however in light of the possibility of her being fluid overloaded due to a high BNP, she was also given Lasix although the chest x-ray did not show any pulmonary vascular congestion.? It shows then switched to BiPAP, she was deemed him in [place] close stable and not in septic shock but they felt she met criteria for sepsis although given the concern for fluid overload no IV fluids were given.? During my evaluation the patient continues to be on BiPAP, appears to be in kiuj-[id number] respiratory distress and is not able to answer questions. ? ROS:? Unable to obtain on CPAP ? Past Medical History:? As above ? Past Surgical History: Bilateral hip arthroplasty with the most recent 1 done about 2 months ago Cholecystectomy Appendectomy ? Family history: ?Noncontributory ? Social History:? Active smoker about 5 cig/day, unableto give a pack year history;, no drug use, no alcohol. ? CODE STATUS: FULL CODE ? Allergies: ?Acetaminophen and tuberculin (unknown) ? Home Medications: Will obtain med rec from Rehab facility Sepsis PHYSICAL EXAM done at 01:30 on 06/28/2023: VS: ?115/55, 97, 20, 92% on BiPAP of 12/5 with FiO2 of 21% satting 84% General:? Alert but appears to be in [id number] respiratory distress with accessory muscle usage. Skin:? Intact, no lesions, erythema, clubbing or cyanosis.? No ulcers. HEENT:? Head is normocephalic, atraumatic, pupils equal round reactive to light accommodation bilaterally.? Extraocular movements appear intact.? Buccal mucosa is ??Dry. Neck is supple without lymphadenopathy. Cardiac:? Clear S1-S2, no murmurs rubs or gallops. Pulmonary:? ?bilateral inspiratory and expiratory wheezing in upper and lower comer anteriorly and posteriorly with posterior prominent rhonchi at the right base, crackles bilaterally at the bases Abdomen:? Protuberant, positive bowel sounds in all 4 quadrants.? Soft, nontender, no rebound or guarding.? Musculoskeletal:? Moving all 4 extremities upon request a major joints, there is no crepitus or tenderness.? The strength is 5/5 bilaterally and throughout all 4 extremities.? There is ??1+ pitting edema bilaterally up to mid tibias, no asymmetry of the legs, no calf tenderness bilaterally. Neurologic:? As above, cranial nerves 2-12 are grossly intact.? No focal deficits noted. Vascular:? 2+ pulses upper and lower extremities distally.? Less than 2nd capillary refill of the finger and toes bilaterally? Of the upper and lower extremities. ? SIGNIFICANT LABORATORY DATA: ?White count 15.6, hemoglobin 13.2, hematocrit 42.6, platelets 52/ ABG shows pH of 7.31, pCO2 of 67, PO2 88, HC03 34.? Sodium 141, potassium 4.6, chloride 104, carbon dioxide 30, anion gap 12, BUN 18, creatinine 0.86, random glucose 132, lactic acid 1.3, magnesium 2.2, phosphorus 4.5, total bilirubin 1.7, direct related Bear 0.7, SAT 19, ALT 7, troponin 8.2, BNP 13 86, albumin 3.5.? Influenza a and COVID test negative. ? ? REVIEW OF IMAGES: ? CXR IMPRESSION: Patchy right perihilar and basilar airspace opacities, suspicious for pneumonia in the proper clinical setting. Questionable patchy left basilar opacity. Radiographic follow-up after treatment/resolution of symptoms is recommended. ? EKG REVIEW:? Sinus rhythm 97 beats per minute.? There is no ST elevations, no ST depressions.? Left axis.? QTC 352 MS.? No comparison available. ? ASSESSMENT : 1. Acute hypoxic respiratory failure 2. Acute COPD exacerbation 3. Right lung Hospital-acquired pneumonia with concomitant aspiration 4. Acute early sepsis without septic shock 5. Concomitant CHF exacerbation 6. Thrombocytopenia 7. Acute respiratory acidosis 8. Clinical dehydration 9. Acute kidney injury with BUN to creatinine ratio of 21 ? PLAN OF CARE: Admit to ICU, monitor vital signs, I's and O's, continue with pressure support but will switch him BiPAP settings to 14 over 6 and advised to keep the FiO2 for a goal O2 sat of 90-92% with a backup rate of 12, patient's breathing at 20 breaths per minute, given the significant acidosis antibiotics, obtain sputum culture and Gram stain, S steroids, DuoNeb, albuterol, will cover him with broad-spectrum antibiotics given recent hospitalization including vancomycin and Zosyn, order an echo, repeat labs in the morning. ?I will order chest CT angiogram of the chest to rule out pulmonary embolism given the recent arthroplasty and hypoxia, this will also help us to further define above-mentioned pneumonia. IV fluids will no be ordered as ?she does have risk of developing ?worse CHF;? she ready has crackles therefore I will not be ordered. ?I will however order albumin 133 cc/ HR ?x2 doses. ? GI PROPHYLAXIS:? IV ppi DVT PROPHYLAXIS: ?Heparin subQ q.8 hours ? Clinical update 0250 AM CHEST CTA IMPRESSION: 1.? Limited evaluation due to bolus timing and respiratory motion artifact. While no central/lobar pulmonary embolus is seen, the possibility of segmental or subsegmental emboli cannot be excluded on basis of this exam. 2.? Patchy areas of consolidation in the bilateral lower lobes, and to a lesser degree in the posterior upper lobes and right middle lobe. Some areas of tree-in-bud type nodularity are also noted. Appearance is most suggestive of an infectious/inflammatory etiology. Follow-up CT in approximately 3 months is recommended to assess for resolution of the consolidations and exclude underlying mass. 3.? Cirrhotic morphology of the liver. ? VTE: indeterminate. I will not do full anticoagulation given that I have clarified with the patient that her surgery was 2-3 months ago, the D-dimer is not elevated and there is no clear evidence on CT of a PE. ? Critical care time used for critical evaluation of this patient, diagnosis, treatment and coordination of care, review her records and documentation TOTAL CRITICAL CARE TIME? 90? MIN . discussion and coordination with consultants, completely separate from any procedures performed. Patient's care was discussed in detail with Dr. Tolliver.? He is aware of all the above as well as the plan of care for this patient. [facility] Social History Social History Household Members: None Housing: Long-Term Do you presently have visiting nurse or other home services: No Alcohol intake: unknown Patient Tobacco Use Status: Current everyday Tobacco user Tobacco use type: Cigarette Cigarettes Per Day: 5 Smoked in Last 30 Days: Yes Use of substances other than those prescribed or required for medical reasons: No Currently Displaying Signs/Symptoms of Drug Intoxication Withdrawal: No Advance Directives: No Advance Directives Information Provided: Yes Do you have thoughts of harming others: None Do you have a plan to hurt others: No Plan Nutrition Risks: No Nutritional Risk Patient : No service: No Meds Allergies Allergy/AdvReac Type Severity Reaction Status Date / Time acetaminophen Allergy Unknown Unknown Verified 06/27/23 22:57 Tuberculin AdvReac Unknown Unknown Uncoded 06/27/23 22:57 Active Medications: Current Medications Albuterol/Ipratropium (Albuterol/Iprat 2.5/0.5mg 3 Ml Ampul.Neb) 3 ml INHALE Q2H PRN PRN Reason: Wheezing Albuterol Sulfate 2.5 mg/ (Albuterol/Ipratropium 3 ml) 0 mg INHALE Q6H SCOUT Heparin Sodium (Porcine) (Heparin Sodium,Porcine 5,000 Unit/Ml Vial) 5,000 unit SUBCUT Q8H SCOUT Vancomycin HCl (Vancomycin/Ns) 2,000 mg in 500 mls @ 250 mls/hr IV ONCE ONE Stop: 06/28/23 02:29 Piperacillin Sod/Tazobactam (Sod 4.5 gm/ Sodium Chloride) 100 mls @ 200 mls/hr IV Q6H SCOUT Methylprednisolone Sodium Succinate (Methylprednisolone Sod Succ 125 Mg/2 Ml Vial) 60 mg IVPUSH Q6H SCOUT Pantoprazole Sodium (Pantoprazole Sodium 40 Mg/10 Ml Vial) 40 mg IVPUSH DAILY ONE Stop: 06/28/23 00:20 Pharmacy Consult (Consult Rx Vancomycin Dosing) 1 each MISCELLANE DAILY PRN PRN Reason: Consult order Home Medications Medication Instructions Recorded Confirmed Last Taken Type acamprosate 333 mg tablet,delayed 333 mg PO TID 06/28/23 06/28/23 Unknown History release albuterol sulfate 90 mcg/actuation 2 puff inhalation BID 06/28/23 06/28/23 Unknown History aerosol inhaler (ProAir HFA) alprazolam 0.25 mg tablet (Xanax) 0.25 mg PO BID PRN Anxiety 06/28/23 06/28/23 Unknown History bisacodyl 10 mg rectal suppository 10 mg [place] DAILY PRN Constipation 06/28/23 06/28/23 Unknown History bisacodyl 5 mg tablet,delayed 30 mg PO BEDTIME 06/28/23 06/28/23 Unknown History release (Dulcolax (bisacodyl)) cetirizine 10 mg tablet 10 mg PO DAILY 06/28/23 06/28/23 Unknown History dextran 70-hypromellose eye drops 1 drp ophthalmic (eye) TID 06/28/23 06/28/23 Unknown History in a dropperette (Artificial Tears (PF) drops in a dropperette) diclofenac sodium 1 % topical gel 4 g topical QID PRN Pain 06/28/23 06/28/23 Unknown History escitalopram oxalate 20 mg tablet 20 mg PO DAILY 06/28/23 06/28/23 Unknown History fluticasone fur. 200 mcg-umeclid 1 inh inhalation DAILY 06/28/23 06/28/23 Unknown History 62.5 mcg-vilant 25 mcg inhalat.powder (Trelegy Ellipta) fluticasone propionate 50 1 spray intranasal BID 06/28/23 06/28/23 Unknown History mcg/actuation nasal spray,suspension (Flonase Allergy Relief) folic acid 1 mg tablet 1 mg PO DAILY 06/28/23 06/28/23 Unknown History furosemide 20 mg tablet 60 mg PO DAILY 06/28/23 06/28/23 Unknown History gabapentin 300 mg capsule 300 mg PO TID 06/28/23 06/28/23 Unknown History ipratropium 0.5 mg-albuterol 3 mg 3 ml inhalation Q8H PRN Shortness 06/28/23 06/28/23 Unknown History (2.5 mg base)/3 mL nebulization Of Breath Or Wheezing soln lactulose 10 gram/15 mL oral 30 ml PO Q2D@0900,1500,2100 06/28/23 06/28/23 06/26/23 History solution levetiracetam 500 mg tablet 500 mg PO BID 06/28/23 06/28/23 Unknown History (Keppra) lidocaine 5 % topical patch 1 patch topical DAILY 06/28/23 06/28/23 Unknown History magnesium hydroxide 400 mg/5 mL 30 ml PO DAILY PRN Constipation 06/28/23 06/28/23 Unknown History oral suspension (Milk of Magnesia) methyl salicylate 15 %-menthol 10 1 appl topical DAILY PRN neck pain 06/28/23 06/28/23 Unknown History % topical cream (Muscle Rub) metoprolol tartrate 25 mg tablet 25 mg PO DAILY 06/28/23 06/28/23 Unknown History multivitamin 1 tab PO DAILY 06/28/23 06/28/23 Unknown History naloxone 4 mg/actuation nasal 4 mg intranasal Q3M PRN Opioid 06/28/23 06/28/23 Unknown History spray (Narcan) Overdose nystatin 100,000 unit/gram topical 1 appl topical BID 06/28/23 06/28/23 Unknown History powder oxycodone 5 mg tablet 5 mg PO Q4H PRN Moderate Pain 06/28/23 06/28/23 Unknown History (Scale Score 5-6) pantoprazole 40 mg tablet,delayed 40 mg PO DAILY@0630 06/28/23 06/28/23 Unknown History release sodium phosphates 19 gram-7 118 ml [place] DAILY PRN Constipation 06/28/23 06/28/23 Unknown History gram/118 mL enema (Fleet Enema) thiamine HCl (vitamin B1) 100 mg 100 mg PO DAILY 06/28/23 06/28/23 Unknown History tablet tizanidine 2 mg tablet 2 mg PO Q8H PRN Muscle Spasm 06/28/23 06/28/23 Unknown History trazodone 50 mg tablet 50 mg PO BEDTIME 06/28/23 06/28/23 Unknown History Physical Exam Vital Signs: Vital Signs: Last Vital Signs Temp 98.6 F 06/27/23 22:52 Pulse 97 06/27/23 23:44 Resp 21 H 06/28/23 00:36 BP 115/55 L 06/27/23 23:44 Pulse Ox 92 06/27/23 23:44 O2 Del Method CPAP 06/27/23 23:44 Oxygen Flow Rate 40 06/27/23 22:52 BMI result Body Mass Index 40.7 Results Labs 06/27/23 23:18 06/27/23 23:18 Labs: Laboratory Results - last 24 hr 06/27/23 06/27/23 06/27/23 23:18 23:18 23:18 MCV 87.7 MCH 27.2 MCHC 31.0 RDW 14.6 Plt Count 52 L MPV TNP Immature Gran % (Auto) 0.6 H Neut % (Auto) 88.5 H Lymph % (Auto) 2.6 L [place] % (Auto) 8.2 Eos % (Auto) 0.0 Baso % (Auto) 0.1 Lymph # (Auto) 0.4 L [place] # (Auto) 1.3 H Eos # (Auto) 0.0 Baso # (Auto) 0.0 Abs Immat Gran (auto) 0.09 H Absolute Neuts (auto) 13.8 H Absolute Nucleated RBC 0.000 Nucleated RBC % (auto) 0.0 Smear Tech's Comments VERIFIED O2 Saturation ABG pH at Pt Temp ABG pCO2 at Pt Temp ABG pO2 at Pt Temp ABG HCO3 ABG Base Excess (Actual) Anion Gap 12 Estim Creat Clear Calc 61.9 Estimated GFR > 60 Random Glucose 132 H Lactic Acid Calcium 9.2 Phosphorus 4.5 Magnesium 2.2 Total Bilirubin 1.7 H Direct Bilirubin 0.7 H AST 19 ALT 7 Alkaline Phosphatase 91 B-Natriuretic Peptide 1386 H Total Protein 6.9 Albumin 3.5 Lipase 20 Influenza Type A (PCR) Influenza Type B (PCR) RSV RNA Qual (PCR) SARS-CoV-2 RNA (RT-PCR) 06/27/23 06/27/23 06/27/23 23:18 23:19 23:20 MCV MCH MCHC RDW Plt Count MPV Immature Gran % (Auto) Neut % (Auto) Lymph % (Auto) [place] % (Auto) Eos % (Auto) Baso % (Auto) Lymph # (Auto) [place] # (Auto) Eos # (Auto) Baso # (Auto) Abs Immat Gran (auto) Absolute Neuts (auto) Absolute Nucleated RBC Nucleated RBC % (auto) Smear Tech's Comments O2 Saturation 96.0 ABG pH at Pt Temp 7.31 L ABG pCO2 at Pt Temp 67 H* ABG pO2 at Pt Temp 88 ABG HCO3 34 H ABG Base Excess (Actual) 6.0 Anion Gap Estim Creat Clear Calc Estimated GFR Random Glucose Lactic Acid 1.3 Calcium Phosphorus Magnesium Total Bilirubin Direct Bilirubin AST ALT Alkaline Phosphatase B-Natriuretic Peptide Total Protein Albumin Lipase Influenza Type A (PCR) NEGATIVE Influenza Type B (PCR) NEGATIVE RSV RNA Qual (PCR) NEGATIVE SARS-CoV-2 RNA (RT-PCR) NEGATIVE Imaging Radiologist's Impressions: Impressions Chest X-Ray 06/27/23 23:25 IMPRESSION: Patchy right perihilar and basilar airspace opacities, suspicious for pneumonia in the proper clinical setting. Questionable patchy left basilar opacity. Radiographic followup after treatment/resolution of symptoms is recommended. Assessment and Plan Time Spent With Patient Time: Total time managing care of this patient today ____ minutes.
[2023-06-28 01:01] LABS: D Dimer High Sensitivity 273 NG/ML
[2023-06-28] MEDS: vancomycin/NS 2,000 MG/500 ML PLAST..BAG 250 MG IV (01:31)
[2023-06-28] MEDS: Furosemide 40 MG/4 ML VIAL IVPUSH (01:31)
[2023-06-28] MEDS: Heparin Sodium,Porcine 5,000 UNIT/ML VIAL 5000 UNIT SUBCUT ×3 (01:31→17:37)
[2023-06-28] MEDS: iohexoL 350 MG/ML 100 ML INFUS..BTL IV (02:16)
--- NOTE | 2023-06-28 02:36 | PC.NURSE ---
Pt B[facility] at approximately 2330 on 06/27/23 [facility] Reports that pt was hypoxic at 75% on room air yesterday morning and was put on 2L NC.Initially sats improved but throughour the day worsened and pt had increased RR and obtunded. Pt arrived lethargic but easily arousable and oriented X4. Pt on CPAP 12/5 @40% initially and decreased by R after ABG's. Labs, EKIG and cxr done as ordered. All meds given as ordered. Pt is ICU admit, report given to Heidi HOOPER after she was brought for CTA.
--- NOTE | 2023-06-28 02:46 | PM.SEPBOLA4 ---
Sepsis Bolus Exclusion Sepsis Bolus Exclusion Date of Occurrence: 06/28/23 This patient met severe sepsis criteria due to the following condition(s):: Documentation of septic shock (NO ) In my clinical judgement the administration of 30 ml/kg of crystalloid would be detrimental to this patient due to the patient's following conditions:: Concern for fluid overload Other (must be specific):: Bibasilar crackles, elevated BNP, hypoxia, leg edema. Replace the 30 mls/kg with (*zero amount not acceptable): *Note: One of the comer must be documented Colloids amount given in mls:: 200 At a rate of (must be > 125 cchr):: 133
[2023-06-28] MEDS: Albumin Human 25 % 100 ML 133.33 ML IV ×2 (02:49→03:05)
[2023-06-28] MEDS: Albuterol/Iprat 2.5/0.5MG 3 ML AMPUL.NEB INHALE ×6 (02:56→20:07)
[2023-06-28 03:00] LABS: ABG Refer to POC result
[2023-06-28 03:25] LABS: Appearance Urine Clear; Color Urine Yellow; Glucose Urine UA Negative (Negative); Leukocyte Esterase Urine Negative (Negative); Nitrite Urine Negative (Negative); PH 6.5 (5.0-9.0); UMIC TRIGGER UACC YES; Urine Blood Trace (Negative); Urine Ketones Negative (Negative); Urine Protein Negative (Neg-Trace)
[2023-06-28 03:42] LABS: Bacteria Urine None Seen (None Seen); Hyaline Casts Urine 0-2 /LPF (0-2); RBC Urine 0-2 /HPF (0-2); Squamous Epithelial Cell Urine 0-2 /HPF (0-2); WBC Urine 0-5 /HPF (0-5)
[2023-06-28 04:35] LABS: VBG HCO3 30 mmol/L (22-26); VBG pCO2 56 mmHg; VBG pH 7.34 (7.32-7.43); VBG pO2 63 mmHg
[2023-06-28 04:46] LABS: Basophils Percent Auto 0.1 % (0-2); Eosinophils Percent Auto 0.1 % (0-4); Hematocrit 36.5 % (37.0-47.0); Hemoglobin 11.2 g/dl (12.0-16.0); Imm Gran Abs Auto 0.04 X10*3/uL (0.00-0.03); Imm Gran Pct Auto 0.4 % (0.0-0.4); Lymphocytes Absolute Auto 0.1 X10*3/uL (1.2-4.9); MANUAL DIFF FLAG SCAN; Mean Corpuscular HGB Conc 30.7 g/dl (31.0-35.0); Mean Corpuscular Hemoglobin 27.3 pg (27.0-33.0); Mean Corpuscular Volume 88.8 fL (80.0-98.0); Monocytes Absolute Auto 0.3 X10*3/uL (0.1-1.2); Neutrophils Absolute Auto 9.2 x10*3/uL (2.0-8.3); Neutrophils Percent Auto 95.4 % (45-73); Platelet Count 50 X10*3/uL (160-400); Red Blood Count 4.11 X10*6/uL (4.20-5.50); Red Cell Distribution Width 14.6 % (11.0-16.0); SCAN SMEAR FLAG 1; White Blood Count 9.7 X10*3/uL (4.8-10.8)
[2023-06-28] MEDS: Lactated Ringers 500 ML 999 ML IV (04:49)
[2023-06-28 04:51] LABS: Venous Blood Gas Refer to POC result
[2023-06-28 05:01] LABS: Alanine Aminotransferase 7 U/L (0-31); Albumin Level 3.8 g/dL (3.5-5.0); Alkaline Phosphatase 68 U/L (39-117); Anion Gap 16 (12-20); Aspartate Amino Transferase 16 U/L (5-31); Bilirubin Total 1.7 mg/dL (0.0-1.0); Blood Urea Nitrogen 20 mg/dL (9-16); Calcium 8.9 mg/dL (8.4-10.2); Carbon Dioxide 24 mmol/L (22-29); Chloride 105 mmol/L (96-108); Creatinine Clr Calc Pharmacy 49.3; Estimated Glomerular Filt Rate 52; Glucose Random 189 mg/dL (60-115); Potassium 4.1 mmol/L (3.3-5.1); Sodium 141 mmol/L (135-145); Total Protein 6.6 g/dL (6.5-8.0)
[2023-06-28] MEDS: Pantoprazole Sodium 40 MG/10 ML VIAL IVPUSH (05:28)
[2023-06-28] MEDS: Piperacillin Sodium/Tazobactam 4.5 GM in 0.9 % Sodium Chloride 100 ML IV ×3 (05:28→17:38)
[2023-06-28] MEDS: methylPREDNISolone Sod Succ 125 MG/2 ML VIAL 60 MG IVPUSH ×3 (05:29→17:37)
[2023-06-28] MEDS: Lactated Ringers 250 ML 999 ML IV (06:15)
[2023-06-28] MEDS: Lactated Ringers 1,000 ML 100 ML IVCONT ×2 (06:25→13:58)
[2023-06-28] MEDS: Doxycycline Hyclate 100 MG in 0.9 % Sodium Chloride 250 ML 166.67 MG IV ×2 (06:36→18:26)
--- NOTE | 2023-06-28 06:54 | PHA.PROG ---
Addendum entered by Poly Painter reese 06/28/23 07:02: PATIENT IS OVER 65 YEARS OLD, USUALLY Q24 HOUR DOSING WOULD HAVE BEEN CHOSEN HOWEVER PATIENT HAS RESPIRATORY INFECTION, TRYING TO GET PATIENT TO AUC QUICKER. Original Note: Admission Date/Time: June 28, 2023 00:22 Indication: Respiratory Infection Weight in k.5 kg Adjusted body weight in K.6 [place] body weight in K.6 Obesity Dosing Indication % IBW: obese Serum Creatinine - Last 168 Hours 06/27/23 06/28/23 23:18 04:25 Creatinine 0.86 1.04 Estimated CrCl and GFR - Last 168 Hours 06/27/23 06/28/23 23:18 04:25 Estim Creat Clear Calc 61.9 49.3 Estimated GFR > 60 52 Vancomycin Loading Dose: 2000 mg Current Vancomycin Dosing Regimen: 750 mg Vancomycin Monitoring using AUC goal of 400 - 600 range with trough as surrogate marker: 457 Date and Time for next Vancomycin Level to be drawn: 06/29 @1200 Pharmacist Comments on Vancomycin Plan: Vancomycin dosing will take advantage of [employer]ue[employer] as a clinical decision support tool that uses Bayesian modeling to calculate individual patient's pharmacokinetic parameters and forecast the patient's drug concentration time course with the target goal AUC 24 range of 400 - 600 mg/L/hr.
--- NOTE | 2023-06-28 06:56 | PC.NURSE ---
Pt admitted to ICU at approx 0215. Upon initial assessment- pt lethargic but A&Ox4, calm/cooperative, BERNAL. Afebrile. NSR with PAC/PVCs on tele, HR 70-80s. +1 BLE edema. SBP trended down to 90s, given total of LR 750 ml IV bolus. Remains on BiPAP 14/6/28% overnight, tolerating well. LS with rhonchi and wheezing throughout. Voided on bedpan. Skin overall intact. Call laureano in reach. Bed locked.
--- NOTE | 2023-06-28 07:00 | CA_ITS ---
Transthoracic Echocardiogram Patient (Last, First, Middle): Sarai Mederos, Gender: Female Date of : 1945 Age: 77 Procedure Date: 06/28/2023 Procedure Type: Transthoracic Echocardiogram Location: ICU Height: 157.48 cm Weight: 94.35 kg BSA: 1.94 m2 Heart Rate: bpm BP: 118 / 71 mmHg Property Analyst: TO Referring MD: Nikhil GAY Symptoms: chf Study Quality: Adequate with contrast ECG Rhythm: Sinus Conclusions: - The left ventricular systolic function is hyperdynamic. The visually estimated ejection fraction is >70%. - There is moderate septal asymmetric hypertrophy. - The left atrium is severely dilated. - Elevated gradients across aortic valve likely related to hyperdynamic function. Doubt any more than mild to moderate aortic stenosis. - Mild pulmonary hypertension is present. Findings Procedure Information Contrast agent, definity, is being given per protocol without apparent complications. Left Ventricle Normal left ventricular cavity size. The left ventricular systolic function is hyperdynamic. The visually estimated ejection fraction is >70%. There is no evidence of regional wall motion abnormalities. There is no dynamic left ventricular outflow tract obstruction. Evidence suggests grade I (mild) diastolic dysfunction. There is moderate septal asymmetric hypertrophy. Right Ventricle Mildly increased right ventricular cavity size. There is normal right ventricular systolic function. Atria The left atrium is severely dilated. The right atrium is normal in size. Aortic Valve There is moderate calcification of the aortic valve. There is no aortic valve regurgitation. Dimensionless index 0.49. Stroke volume index 71 mL/m2. Elevated gradients across aortic valve likely related to hyperdynamic function. Doubt any more than mild to moderate aortic stenosis. Mitral Valve There is mild mitral annular calcification. There is no mitral valve regurgitation. There is no mitral valve stenosis. Pulmonic Valve The pulmonic valve is likely normal. Tricuspid Valve There is trace tricuspid valve regurgitation. Mild pulmonary hypertension is present. Great Vessels The asc aorta is normal in size. Venous The inferior vena cava is mildly dilated and collapses greater than 50% with inspiration. Pericardium/Pleural There is no evidence of pericardial effusion. Prior Study Comparison No prior study available for comparison. (pt on BiPAP during study). Measurements 2D Linear Measurements IVSd: 1.40 0.6-0.9/0.6-1.0 cm LVIDd: 5.10 3.9-5.3/4.2-5.9 cm LVIDd Index: 2.63 2.4-3.2/2.2-3.1 cm/m2 LVIDs: 3.10 2.0-3.6 cm LVPWd: 1.10 0.7-1.1 cm LV Mass: 318.58 67-162/88-224 g LV Mass Index: 164.22 43-95/49-115 g/m2 LVOT Diam: 2.00 3.0+(-)1.3 cm 2D Systolic Function EF 4C: 69.60 >55% EF 2C: 79.80 >55% EF BiP: 75.60 >55% Mitral Valve MV VTI: 0.45 MV Pk Tino: 1.92 MV Mn Tino: 1.21 MV Pk Grad: 15.00 MV Mn Grad: 7.00 MV Pk E: 1.29 MV PK A: 1.58 MV Decel Time: 271.00 E/A: 0.80 E'Lateral: 6.85 E'Medial: 6.53 E/E' Med: 19.80 E/E' Lat: 18.80 PHT: 79.00 MVA PHT: 2.78 MVA Continuity: 3.[address]: 4.75 Aortic Valve AoV Pk Tino: 3.64 AoV Mn Tino: 2.42 AoV VTI: 0.78 AoV Pk Grad: 53.00 Aov Mn Grad: 27.00 COLBY Cont.VTI: 1.78 LVOT LVOT Pk Tino: 1.77 LVOT Mn Tino: 1.17 LVOT VTI: 0.44 LVOT Pk Grad: 13.00 LVOT Mn Grad: 7.00 LVOT Diam: 2.00 LVOT Area: 3.14 Diastolic Function MV Pk E: 1.29 MV Pk A: 1.58 E/A: 0.80 E'Medial: 6.53 E/E' Med: 19.80 E' Laterial: 6.85 E/E' Lat: 18.80 Right Ventricle TAPSE (mm): 25.70 TVS' Tino: 11.20 Tricuspid Valve TR Pk Tino: 3.28 TR Pk Grad: 43.00 RA Press: 3.00 RVSP: 46.00 Great Vessels Aorta Sinus of Valsalva: 3.00 2.0-3.[address] [place]: 2.70 1.7-3.4 cm Ao Asc: 3.50 2.1-3.4 cm Updated in Other Vendor System with Status of Final Yohan Diaz MD electronically signed on 06/28/2023 11:27:05 AM with status of Final
--- NOTE | 2023-06-28 08:12 | PHA.MEDREC ---
Pharmacy Consult ? Medication Reconciliation Pharmacy has completed the medication reconciliation. Patient had med list form [facility].
[2023-06-28 08:28] LABS: MRSA Nasal PCR NEGATIVE (Negative); SA Nasal PCR NEGATIVE (Negative)
[2023-06-28] MEDS: levalbuterol HCL 1.25 MG/3 ML VIAL.NEB INHALE (12:26)
[2023-06-28] MEDS: vancomycin HCL 750 MG in 0.9 % Sodium Chloride 250 ML 265 MG IV (13:56)
[2023-06-28] MEDS: Metoprolol Tartrate 25 MG TABLET PO (13:56)
[2023-06-28] MEDS: levETIRAcetam 500 MG TABLET PO ×2 (13:56→20:53)
[2023-06-28] MEDS: oxyCODONE HCl Immed Release 5 MG TABLET PO ×3 (13:56→22:12)
[2023-06-28] MEDS: Gabapentin 300 MG CAPSULE PO ×2 (13:56→20:53)
[2023-06-28 13:58] LABS: VBG Base Excess 6.7 mmol/L; VBG HCO3 33 mmol/L (22-26); VBG pCO2 59 mmHg; VBG pH 7.36 (7.32-7.43); VBG pO2 49 mmHg
[2023-06-28 14:13] LABS: Anion Gap 13 (12-20); Blood Urea Nitrogen 21 mg/dL (9-16); Calcium 9.1 mg/dL (8.4-10.2); Carbon Dioxide 28 mmol/L (22-29); Chloride 106 mmol/L (96-108); Creatinine Clr Calc Pharmacy 48.8; Estimated Glomerular Filt Rate 51; Glucose Random 216 mg/dL (60-115); Potassium 3.9 mmol/L (3.3-5.1); Sodium 143 mmol/L (135-145)
[2023-06-28] MEDS: Artificial Tears 15 ML DROPS 1 DROP EYE-BOTH ×2 (15:03→20:54)
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
[2023-06-28] MEDS: guaiFENesin LA 600 MG TAB.ER.12H PO (20:53)
[2023-06-28] MEDS: bisacodyL 5 MG TABLET.DR 30 MG PO (20:53)
[2023-06-28] MEDS: traZODone HCL 50 MG TABLET PO (20:53)
[2023-06-28] MEDS: ALPRAZolam 0.25 MG TABLET PO (20:56)
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
[2023-06-29] VITALS (22 sets, daily range): BP systolic 104–141; BP diastolic 48–79; PULSE 62–81; RESP 11–23; TEMP 36.1–36.8; O2SAT 90–97; BMI 39.5
[2023-06-29] MEDS: Piperacillin Sodium/Tazobactam 4.5 GM in 0.9 % Sodium Chloride 100 ML IV ×2 (00:20→05:34)
[2023-06-29] MEDS: methylPREDNISolone Sod Succ 125 MG/2 ML VIAL 60 MG IVPUSH ×4 (00:20→18:47)
[2023-06-29] MEDS: Heparin Sodium,Porcine 5,000 UNIT/ML VIAL 5000 UNIT SUBCUT ×3 (00:20→17:01)
[2023-06-29] MEDS: Lactated Ringers 1,000 ML 100 ML IVCONT (00:25)
[2023-06-29] MEDS: vancomycin HCL 750 MG in 0.9 % Sodium Chloride 250 ML 265 MG IV (02:31)
[2023-06-29 04:59] LABS: VBG Base Excess 6.1 mmol/L; VBG HCO3 32 mmol/L (22-26); VBG pCO2 55 mmHg; VBG pH 7.37 (7.32-7.43); VBG pO2 68 mmHg
[2023-06-29 05:45] LABS: Hematocrit 35.6 % (37.0-47.0); Hemoglobin 10.7 g/dl (12.0-16.0); Imm Gran Abs Auto 0.04 X10*3/uL (0.00-0.03); Imm Gran Pct Auto 0.7 % (0.0-0.4); Lymphocytes Absolute Auto 0.1 X10*3/uL (1.2-4.9); Lymphocytes Percent Auto 2.4 % (20-40); MANUAL DIFF FLAG SCAN; Mean Corpuscular HGB Conc 30.1 g/dl (31.0-35.0); Mean Corpuscular Hemoglobin 26.9 pg (27.0-33.0); Mean Corpuscular Volume 89.4 fL (80.0-98.0); Monocytes Absolute Auto 0.2 X10*3/uL (0.1-1.2); Monocytes Percent Auto 2.8 % (2-11); Neutrophils Absolute Auto 5.4 x10*3/uL (2.0-8.3); Neutrophils Percent Auto 94.1 % (45-73); Red Blood Count 3.98 X10*6/uL (4.20-5.50); Red Cell Distribution Width 14.5 % (11.0-16.0); SCAN SMEAR FLAG 1; White Blood Count 5.8 X10*3/uL (4.8-10.8)
[2023-06-29 05:49] LABS: Platelet Count 34 X10*3/uL (160-400)
--- NOTE | 2023-06-29 05:49 | PM.CCPN ---
Subjective Subjective Date of Service: 06/28/23 Interval History: 77-year-old obese type 2 diabetic with smoking-related COPD comes in with increased shortness of breath cough fever and acute on chronic hypercarbic and hypoxic respiratory failure requiring positive-pressure with BiPAP because of of work of breathing with markedly prolonged expiratory time in diaphragmatic effort which gradually abated with high-dose bronchodilator therapy IV steroids and antibiotics as well as several hours of positive-pressure breathing and I did a bedside echo which showed a borderline degree of concentric left ventricular hypertrophy but a hyperdynamic left ventricle and possible borderline dilatation of right ventricular diameter but I sore mild calcification of and otherwise trileaflet aortic valve without any evidence of critical aortic stenosis no critical degree of regurgitation of either mitral or tricuspid valve no pericardial disease and from what I sore of the inferior vena cava appeared fairly flat so we gave her maintenance IV fluids knowing that the most especially because she received IV contrast for her CT scan with a slight increase in her creatinine from 0.85-1.04 and she continue to produce urine and eventually we were able to free her from the BiPAP place her on nasal cannula without any further worsening of pCO2 and she was able to eat at that point follow-up chemistry indicated that the creatinine did not worsen any further so I think we managed to avert and acute tubular necrosis issue and I truly do not believe that she has any contribution here from from heart failure with looking at the hemodynamics and especially from the standpoint of the echo and the CT scan CT scan showed multilobar I could see some posterior segments of the right upper lobe and certainly scattered and in infiltrates and even areas of varying attenuation possible consolidation and 1 area with there was actually a very small like he no thick walled cyst area in a which makes me wonder about etiology especially given the degree of her chronic COPD new could there be a a more enhanced organism such as an CAYDEN needed bacteriuria or Nocardia so most and possible to rule this out but I think the more aggressive antibiotic namely the Zosyn is definitely merited but with a negative MRSA screen I think we can stay with doxycycline for possible and SSA but eliminate vancomycin and if clinical improvement is not there we could always consider the possibility of something like Bactrim but thus far she is moving in the right direction looking at her CT scan she had a fairly considerable degree of splenomegaly and and what appears to be a liver parenchymal pattern of cirrhosis and out in offices a non alcoholic form or if it is alk an alcoholic and in origin there is no ascites no other indicator of of portal hypertension Critical Care Time (minutes): 45 Physical Exam Vital Signs: Vital Signs: Last Vital Signs Temp 98.7 F 06/28/23 20:00 Pulse 72 06/29/23 05:00 Resp 13 06/29/23 05:00 BP 111/58 L 06/29/23 05:00 Pulse Ox 93 06/29/23 05:00 O2 Del Method Nasal Cannula 06/29/23 05:00 O2 Flow Rate 2 06/29/23 05:00 FiO2 28 06/28/23 23:46 Oxygen Flow Rate 40 06/27/23 22:52 BMI result Body Mass Index 38.1 and she was awake and alert mentally appropriate nonfocal neurologically bedside echo indicating borderline degree of concentric left ventricular hypertrophy but otherwise hyperdynamic and systolic performance borderline right ventricular dimension non critical aortic valvular sclerosis but no stenosis of significance and a normal IVC diameter indicating that we could continue volume comfortably lungs with with scattered bilateral wheezing skin was intact no breakdown no bites no rash no acrocyanosis Objective Data Labs 06/28/23 04:25 06/28/23 13:49 Labs: Laboratory Results - last 24 hr 06/28/23 06/28/23 06/28/23 06:20 13:49 13:54 MPV VBG pH 7.36 VBG pCO2 59 VBG pO2 49 VBG HCO3 33 H VBG O2 Saturation 78.0 VBG Base Excess 6.7 Sodium 143 Potassium 3.9 Chloride 106 Carbon Dioxide 28 Anion Gap 13 BUN 21 H Creatinine 1.05 Estim Creat Clear Calc 48.8 Estimated GFR 51 Random Glucose 216 H Calcium 9.1 Nasal Screen MRSA (PCR) NEGATIVE Nasal S. aureus Screen NEGATIVE Nasal MRSA/S.aureus Interp SEE NOTE 06/29/23 06/29/23 04:49 04:54 MPV TNP VBG pH 7.37 VBG pCO2 55 VBG pO2 68 VBG HCO3 32 H VBG O2 Saturation 93.0 VBG Base Excess 6.1 Sodium Potassium Chloride Carbon Dioxide Anion Gap BUN Creatinine Estim Creat Clear Calc Estimated GFR Random Glucose Calcium Nasal Screen MRSA (PCR) Nasal S. aureus Screen Nasal MRSA/S.aureus Interp Microbiology Microbiology Results: Microbiology 06/27/23 23:18 Blood - Venous Blood Culture - Preliminary No growth after 24 hours. 06/27/23 23:18 Blood - Venous Blood Culture - Preliminary No growth after 24 hours. Progress Note: A&P Assessment and plan (1) Pneumonia: Status: Acute (2) Sepsis: Status: Acute (3) Acute exacerbation of chronic obstructive airways disease: Status: Acute (4) Status asthmaticus with COPD (chronic obstructive pulmonary disease): Status: Acute (5) Morbid obesity: Status: Acute (6) Type 2 diabetes mellitus: Status: Acute (7) Cirrhosis: Status: Acute (8) Splenomegaly: Status: Acute (9) Acute on chronic respiratory failure with hypoxia and hypercapnia: Status: Acute Plan so for now I think stopping the vancomycin would be appropriate and keep the doxycycline and Zosyn failure to improve or inability to clear infectious process I would consider about treating for more enhanced organism and maybe a little bit more aggressive in obtaining sputum sample but it definitely would would obtain heme consult for the splenomegaly and look a little bit more into the origin of the cirrhotic pattern of the liver Quality Stroke Does the patient have a stroke diagnosis?: No VTE Prior VTE?: No VTE Risk Level:: Medical - moderate - high VTE Device Contraindication: N/A - Device Ordered VTE Drug Contraindication: N/A - Med Ordered
[2023-06-29 05:59] LABS: Creatinine Clr Calc Pharmacy 41.3; Estimated Glomerular Filt Rate 42
[2023-06-29] MEDS: oxyCODONE HCl Immed Release 5 MG TABLET PO ×3 (06:00→20:48)
[2023-06-29] MEDS: Omeprazole 20 MG CAPSULE.DR PO (06:01)
[2023-06-29 06:02] LABS: Albumin Level 3.4 g/dL (3.5-5.0); Anion Gap 11 (12-20); Blood Urea Nitrogen 33 mg/dL (9-16); Carbon Dioxide 26 mmol/L (22-29); Chloride 107 mmol/L (96-108); Estimated Glomerular Filt Rate 43; Glucose Random 240 mg/dL (60-115); Phosphorus 3.6 mg/dL (2.7-4.5); Potassium 4.4 mmol/L (3.3-5.1); Sodium 140 mmol/L (135-145)
[2023-06-29] MEDS: Doxycycline Hyclate 100 MG in 0.9 % Sodium Chloride 250 ML 166.67 MG IV ×2 (06:12→18:48)
[2023-06-29 06:30] LABS: SLIDE REVIEW VERIFIED
[2023-06-29 07:24] LABS: Venous Blood Gas Refer to POC result
[2023-06-29 07:27] LABS: Venous Blood Gas Refer to POC result
[2023-06-29] MEDS: Thiamine HCL 100 MG TABLET PO (08:09)
[2023-06-29] MEDS: Gabapentin 300 MG CAPSULE PO ×3 (08:09→20:48)
[2023-06-29] MEDS: levETIRAcetam 500 MG TABLET PO ×2 (08:09→20:48)
[2023-06-29] MEDS: Metoprolol Tartrate 25 MG TABLET PO (08:09)
[2023-06-29] MEDS: ALPRAZolam 0.25 MG TABLET PO (08:12)
[2023-06-29] MEDS: Artificial Tears 15 ML DROPS 1 DROP EYE-BOTH ×3 (08:21→20:45)
[2023-06-29] MEDS: Nystatin Powder 15 GM BOTTLE 1 APPL TOPICAL (08:31)
[2023-06-29] MEDS: Albuterol/Iprat 2.5/0.5MG 3 ML AMPUL.NEB INHALE ×3 (08:58→15:15)
[2023-06-29] MEDS: guaiFENesin LA 600 MG TAB.ER.12H PO ×2 (10:17→20:48)
--- NOTE | 2023-06-29 14:37 | HO.PM.IMPN ---
Subjective Subjective Date of Service: 06/29/23 Interval History: Seen and evaluated this morning Feels little better but still feeling congested, wheezy and dyspniec No fever or chills Review of Systems Review of Systems: Yes all other systems are reviewed and are negative Physical Exam Vital Signs: Vital Signs: Last Vital Signs Temp 98.3 F 06/29/23 08:00 Pulse 64 06/29/23 13:00 Resp 11 L 06/29/23 13:00 BP 132/60 06/29/23 13:00 Pulse Ox 95 06/29/23 13:00 O2 Del Method Nasal Cannula 06/29/23 13:00 O2 Flow Rate 2 06/29/23 13:00 FiO2 28 06/28/23 23:46 Oxygen Flow Rate 40 06/27/23 22:52 BMI result Body Mass Index 39.5 Const: Other: Constitutional : Awake, interactive, in mild respiratory distress Neck : Normal inspection, Supple Cardiovascular : RRR, no JVP, trace lower extremity edema Respiratory : decreased bilateral air entry, basal crackles, bilateral expiratory wheezes Gastrointestinal: soft, lax, Normal bowel sounds, Non tender Skin : Warm, Dry Neurological : Alert & oriented x3, No focal deficit Objective Data Active Medications Albuterol/Ipratropium (Albuterol/Iprat 2.5/0.5mg 3 Ml Ampul.Neb) 3 ml INHALE RQ4H WHILE AWAKE [facility] Last Admin: 06/29/23 12:03 Dose: 3 ml Documented By: CARMITA Alprazolam (Alprazolam 0.25 Mg Tablet) 0.25 mg PO BID PRN PRN Reason: Anxiety Last Admin: 06/29/23 08:12 Dose: 0.25 mg Documented By: SHIVA Artificial Tears (Artificial Tears 15 Ml Drops) 1 drop EYE-BOTH TID [facility] Last Admin: 06/29/23 08:21 Dose: 1 drop Documented By: SHIVA Benzonatate (Benzonatate 100 Mg Capsule) 200 mg PO TID [facility] Bisacodyl (Bisacodyl 10 Mg Supp.Rect) 10 mg [place] DAILY PRN PRN Reason: Constipation Bisacodyl (Bisacodyl 5 Mg Tablet.Dr) 30 mg PO BEDTIME [facility] Last Admin: 06/28/23 20:53 Dose: 30 mg Documented By: XIMENA Gabapentin (Gabapentin 300 Mg Capsule) 300 mg PO TID [facility] Last Admin: 06/29/23 08:09 Dose: 300 mg Documented By: SHIVA Guaifenesin (Guaifenesin La 600 Mg Tab.Er.12h) 600 mg PO BID [facility] Last Admin: 06/29/23 10:17 Dose: 600 mg Documented By: SHIVA Heparin Sodium (Porcine) (Heparin Sodium,Porcine 5,000 Unit/Ml Vial) 5,000 unit SUBCUT Q8H [facility] Last Admin: 06/29/23 08:09 Dose: 5,000 unit Documented By: SHIVA Doxycycline Hyclate 100 mg/ (Sodium Chloride) 250 mls @ 166.67 mls/hr IV Q12H [facility] Last Infusion: 06/29/23 08:07 Dose: 0 mls/hr Documented By: SHIVA Meropenem 1 gm/ Sodium (Chloride) 100 mls @ 200 mls/hr IV Q12H [facility] Last Infusion: 06/29/23 08:42 Dose: 0 mls/hr Documented By: SHIVA Lactulose (Lactulose 20 Gm/30 Ml Solution) 20 gm PO Q2D@0900,1500,2100 [facility] Last Admin: 06/28/23 20:54 Dose: Not Given Documented By: XIMENA Non-Admin Reason: Patient Refused Levalbuterol HCl (Levalbuterol Hcl 1.25 Mg/3 Ml Vial.Neb) 1.25 mg INHALE Q2H PRN PRN Reason: Dyspnea Last Admin: 06/28/23 12:26 Dose: 1.25 mg Documented By: CHRISTIE Levetiracetam (Levetiracetam 500 Mg Tablet) 500 mg PO BID [facility] Last Admin: 06/29/23 08:09 Dose: 500 mg Documented By: SHIVA Magnesium Hydroxide (Milk Of Magnesia 30 Ml Oral.Susp) 30 ml PO DAILY PRN PRN Reason: Constipation Methylprednisolone Sodium Succinate (Methylprednisolone Sod Succ 125 Mg/2 Ml Vial) 60 mg IVPUSH Q6H [facility] Last Admin: 06/29/23 11:44 Dose: 60 mg Documented By: SHIVA Metoprolol Tartrate (Metoprolol Tartrate 25 Mg Tablet) 25 mg PO DAILY [facility]; Protocol Last Admin: 06/29/23 08:09 Dose: 25 mg Documented By: SHIVA Naloxone HCl (Naloxone Hcl Nasal 4 Mg [place]) 4 mg NOSTRILALT Q3M PRN PRN Reason: Opioid Overdose Nystatin (Nystatin Powder 15 Gm Bottle) 1 appl TOPICAL BID [facility]; Protocol Last Admin: 06/29/23 08:31 Dose: 1 appl Documented By: SHIVA Omeprazole (Omeprazole 20 Mg Capsule.Dr) 20 mg PO DAILY@0630 [facility] Last Admin: 06/29/23 06:01 Dose: 20 mg Documented By: XIMENA Oxycodone HCl (Oxycodone Hcl Immed Release 5 Mg Tablet) 5 mg PO Q4H PRN PRN Reason: Moderate Pain (Scale Score 5-6) Last Admin: 06/29/23 10:17 Dose: 5 mg Documented By: SHIVA Pantoprazole Sodium (Pantoprazole Sodium 40 Mg/10 Ml Vial) 40 mg IVPUSH DAILY@0630 [facility] Last Admin: 06/29/23 06:01 Dose: Not Given Documented By: XIMENA Non-Admin Reason: change to prilosec Sodium Biphosphate/Sodium Phosphate (Sodium Phosphate,[place]-Dibasic 133 Ml Enema) 118 ml NE DAILY PRN PRN Reason: Constipation Thiamine HCl (Thiamine Hcl 100 Mg Tablet) 100 mg PO DAILY [facility] Last Admin: 06/29/23 08:09 Dose: 100 mg Documented By: SHIVA Trazodone HCl (Trazodone Hcl 50 Mg Tablet) 50 mg PO BEDTIME [facility] Last Admin: 06/28/23 20:53 Dose: 50 mg Documented By: XIMENA Labs 06/29/23 04:49 06/29/23 04:49 Labs: Laboratory Results - last 24 hr 06/29/23 06/29/23 06/29/23 04:49 04:49 04:49 MCV 89.4 MCH 26.9 L MCHC 30.1 L RDW 14.5 Plt Count 34 L D MPV TNP Immature Gran % (Auto) 0.7 H Neut % (Auto) 94.1 H Lymph % (Auto) 2.4 L [place] % (Auto) 2.8 Eos % (Auto) 0.0 Baso % (Auto) 0.0 Lymph # (Auto) 0.1 L [place] # (Auto) 0.2 Eos # (Auto) 0.0 Baso # (Auto) 0.0 Abs Immat Gran (auto) 0.04 H Absolute Neuts (auto) 5.4 Absolute Nucleated RBC 0.000 Nucleated RBC % (auto) 0.0 Smear Tech's Comments VERIFIED VBG pH VBG pCO2 VBG pO2 VBG HCO3 VBG O2 Saturation VBG Base Excess Anion Gap 11 L Estim Creat Clear Calc 41.3 42.0 Estimated GFR 42 43 Random Glucose 240 H Calcium 9.0 Phosphorus 3.6 Magnesium 2.0 Albumin 3.4 L 06/29/23 04:54 MCV MCH MCHC RDW Plt Count MPV Immature Gran % (Auto) Neut % (Auto) Lymph % (Auto) [place] % (Auto) Eos % (Auto) Baso % (Auto) Lymph # (Auto) [place] # (Auto) Eos # (Auto) Baso # (Auto) Abs Immat Gran (auto) Absolute Neuts (auto) Absolute Nucleated RBC Nucleated RBC % (auto) Smear Tech's Comments VBG pH 7.37 VBG pCO2 55 VBG pO2 68 VBG HCO3 32 H VBG O2 Saturation 93.0 VBG Base Excess 6.1 Anion Gap Estim Creat Clear Calc Estimated GFR Random Glucose Calcium Phosphorus Magnesium Albumin Microbiology Microbiology Results: Microbiology 06/28/23 13:13 Gram Stain - Final Sputum - Expectorated Sputum Culture - Preliminary Culture in progress. 06/27/23 23:18 Blood Culture - Preliminary Blood - Venous No growth after 24 hours. 06/27/23 23:18 Blood Culture - Preliminary Blood - Venous No growth after 24 hours. Assessment and Plan (1) Acute on chronic respiratory failure with hypoxia and hypercapnia: Status: Acute (2) Splenomegaly: Status: Acute (3) Type 2 diabetes mellitus: Status: Acute (4) Status asthmaticus with COPD (chronic obstructive pulmonary disease): Status: Acute (5) Acute exacerbation of chronic obstructive airways disease: Status: Acute (6) Pneumonia: Status: Acute (7) Sepsis: Status: Acute Plan A 77 years old lady with PMH of COPD, smoking, dCHF, DM2 among others who presented with acute hypoxic failure from COPD exacerbation requiring ICU admission and Bipap management. Acute hypoxic hypercapnic respiratory failure 2/2 COPD exacerbation w status asthmaticus and pneumonia recovered in ICU on bipap, now on 2L cotninue Nebulizers Steroids Continue Doxycycline and Meropenem wean down O2 Overnight oxymetry study Spleenomegaly Imaging concerning for cirrhosis of liver get Hepatitis profile Hematology eval Morbid obesity advised to lose weight Type 2 DM SSI diabetic diet Diastolic CHF Continue home medications Seizure disorder? Keppra DVT PPx Patient will need overnight stay for hypoxia pending clinical improvement and safe discahrge plan. Time Spent With Patient Time: Total time managing care of this patient today ____ minutes. Quality Stroke Does the patient have a stroke diagnosis?: No VTE Prior VTE?: No VTE Risk Level:: Medical - moderate - high VTE Device Contraindication: N/A - Device Ordered VTE Drug Contraindication: N/A - Med Ordered
[2023-06-29 16:58] LABS: Glucose, Whole Blood 129 mg/dL (60-115)
[2023-06-29] MEDS: Benzonatate 100 MG CAPSULE 200 MG PO ×2 (16:59→20:48)
[2023-06-29] MEDS: traZODone HCL 50 MG TABLET PO (20:48)
[2023-06-29] MEDS: bisacodyL 5 MG TABLET.DR 30 MG PO (20:48)
[2023-06-30] VITALS (11 sets, daily range): BP systolic 136–182; BP diastolic 67–81; PULSE 66–100; RESP 16–18; TEMP 36.7–37.1; O2SAT 87–100
[2023-06-30] MEDS: Heparin Sodium,Porcine 5,000 UNIT/ML VIAL 5000 UNIT SUBCUT ×3 (00:58→19:22)
[2023-06-30] MEDS: methylPREDNISolone Sod Succ 125 MG/2 ML VIAL 60 MG IVPUSH ×3 (00:58→17:28)
[2023-06-30 06:19] LABS: HBc Num1 0.06 S/CO (0.00-0.79); HBsAGNum1 0.28 S/CO (0.00-0.99); Hepatitis A Antibody IgM 0.19 Index (0-0.79); Hepatitis B Core Antibody Nonreactive (Nonreactive); Hepatitis B Surface Antigen Negative (Negative); ~HepC Num1 9.87 S/CO (0.00-0.79); ~Hepatitis A Antibody IgM Nonreactive (Nonreactive); ~Hepatitis B Surface Antibody NONREACTIVE (Nonreactive); ~Hepatitis C Antibody Reactive (Nonreactive)
[2023-06-30] MEDS: Omeprazole 20 MG CAPSULE.DR PO (07:25)
[2023-06-30] MEDS: Pantoprazole Sodium 40 MG/10 ML VIAL IVPUSH (07:25)
[2023-06-30] MEDS: Doxycycline Hyclate 100 MG in 0.9 % Sodium Chloride 250 ML 166.67 MG IV ×2 (07:26→17:29)
[2023-06-30 07:37] LABS: Hemoglobin 11.5 g/dl (12.0-16.0); Mean Corpuscular HGB Conc 29.5 g/dl (31.0-35.0); Mean Corpuscular Volume 91.5 fL (80.0-98.0); Mean Platelet Volume 12.2 fL (9.4-12.3); Red Blood Count 4.26 X10*6/uL (4.20-5.50); Red Cell Distribution Width 14.4 % (11.0-16.0); White Blood Count 4.9 X10*3/uL (4.8-10.8)
[2023-06-30 07:38] LABS: Platelet Count 47 X10*3/uL (160-400)
[2023-06-30 07:51] LABS: Glucose, Whole Blood 90 mg/dL (60-115)
[2023-06-30 07:58] LABS: B Type Natriuretic Peptide 1257 pg/mL (<100)
[2023-06-30] MEDS: Albuterol/Iprat 2.5/0.5MG 3 ML AMPUL.NEB INHALE ×4 (08:02→19:36)
[2023-06-30] MEDS: Benzonatate 100 MG CAPSULE 200 MG PO ×3 (09:02→20:25)
[2023-06-30] MEDS: Folic Acid 1 MG TABLET PO (09:03)
[2023-06-30] MEDS: levETIRAcetam 500 MG TABLET PO ×2 (09:03→20:25)
[2023-06-30] MEDS: guaiFENesin LA 600 MG TAB.ER.12H PO ×2 (09:04→20:26)
[2023-06-30] MEDS: Gabapentin 300 MG CAPSULE PO ×3 (09:04→20:25)
[2023-06-30] MEDS: Furosemide 20 MG TABLET 60 MG PO (09:05)
[2023-06-30] MEDS: Thiamine HCL 100 MG TABLET PO (09:05)
[2023-06-30] MEDS: Metoprolol Tartrate 25 MG TABLET PO (09:06)
[2023-06-30 11:20] LABS: Anion Gap 14 (12-20); Blood Urea Nitrogen 35 mg/dL (9-16); Carbon Dioxide 23 mmol/L (22-29); Chloride 111 mmol/L (96-108); Creatinine Clr Calc Pharmacy 45.1; Estimated Glomerular Filt Rate 45; Glucose Random 137 mg/dL (60-115); Potassium 4.7 mmol/L (3.3-5.1); Sodium 143 mmol/L (135-145)
[2023-06-30 11:42] LABS: Glucose, Whole Blood 164 mg/dL (60-115)
--- NOTE | 2023-06-30 11:43 | HO.PM.IMPN ---
Subjective Subjective Date of Service: 06/30/23 Interval History: Seen and evaluated this morning Feels little better still feeling congested, wheezy and dyspniec on 2L of Oxygen No fever or chills Review of Systems Review of Systems: Yes all other systems are reviewed and are negative Physical Exam Vital Signs: Vital Signs: Last Vital Signs Temp 98.7 F 06/30/23 11:18 Pulse 79 06/30/23 11:41 Resp 18 06/30/23 11:41 BP 136/67 06/30/23 11:18 Pulse Ox 99 06/30/23 11:18 O2 Del Method Nasal Cannula 06/30/23 11:18 O2 Flow Rate 2 06/30/23 11:18 FiO2 28 06/28/23 23:46 Oxygen Flow Rate 40 06/27/23 22:52 BMI result Body Mass Index 39.5 Const: Other: Constitutional : Awake, interactive, in mild respiratory distress Neck : Normal inspection, Supple Cardiovascular : RRR, no JVP, trace lower extremity edema Respiratory : decreased bilateral air entry, basal crackles, bilateral expiratory wheezes Gastrointestinal: soft, lax, Normal bowel sounds, Non tender Skin : Warm, Dry Neurological : Alert & oriented x3, No focal deficit Objective Data Active Medications Albuterol/Ipratropium (Albuterol/Iprat 2.5/0.5mg 3 Ml Ampul.Neb) 3 ml INHALE RQ4H WHILE AWAKE [facility] Last Admin: 06/30/23 11:39 Dose: 3 ml Documented By: CHRISTIE Alprazolam (Alprazolam 0.25 Mg Tablet) 0.25 mg PO BID PRN PRN Reason: Anxiety Last Admin: 06/29/23 08:12 Dose: 0.25 mg Documented By: SHIVA Artificial Tears (Artificial Tears 15 Ml Drops) 1 drop EYE-BOTH TID [facility] Last Admin: 06/29/23 20:45 Dose: 1 drop Documented By: KATY Benzonatate (Benzonatate 100 Mg Capsule) 200 mg PO TID [facility] Last Admin: 06/30/23 09:02 Dose: 200 mg Documented By: DANNI Bisacodyl (Bisacodyl 10 Mg Supp.Rect) 10 mg [place] DAILY PRN PRN Reason: Constipation Bisacodyl (Bisacodyl 5 Mg Tablet.Dr) 30 mg PO BEDTIME [facility] Last Admin: 06/29/23 20:48 Dose: 30 mg Documented By: KATY Folic Acid (Folic Acid 1 Mg Tablet) 1 mg PO DAILY [facility] Last Admin: 06/30/23 09:03 Dose: 1 mg Documented By: DANNI Furosemide (Furosemide 20 Mg Tablet) 60 mg PO DAILY [facility]; Protocol Last Admin: 06/30/23 09:05 Dose: 60 mg Documented By: DANNI Gabapentin (Gabapentin 300 Mg Capsule) 300 mg PO TID [facility] Last Admin: 06/30/23 09:04 Dose: 300 mg Documented By: DANNI Guaifenesin (Guaifenesin La 600 Mg Tab.Er.12h) 600 mg PO BID [facility] Last Admin: 06/30/23 09:04 Dose: 600 mg Documented By: DANNI Heparin Sodium (Porcine) (Heparin Sodium,Porcine 5,000 Unit/Ml Vial) 5,000 unit SUBCUT Q8H [facility] Last Admin: 06/30/23 00:58 Dose: 5,000 unit Documented By: CRYSTAL Doxycycline Hyclate 100 mg/ (Sodium Chloride) 250 mls @ 166.67 mls/hr IV Q12H [facility] Last Admin: 06/30/23 07:26 Dose: 166.67 mls/hr Documented By: CRYSTAL Meropenem 1 gm/ Sodium (Chloride) 100 mls @ 200 mls/hr IV Q12H [facility] Last Infusion: 06/29/23 21:29 Dose: 0 mls/hr Documented By: KATY Lactulose (Lactulose 20 Gm/30 Ml Solution) 20 gm PO Q2D@0900,1500,2100 [facility] Last Admin: 06/28/23 20:54 Dose: Not Given Documented By: XIMENA Non-Admin Reason: Patient Refused Levalbuterol HCl (Levalbuterol Hcl 1.25 Mg/3 Ml Vial.Neb) 1.25 mg INHALE Q2H PRN PRN Reason: Dyspnea Last Admin: 06/28/23 12:26 Dose: 1.25 mg Documented By: CHRISTIE Levetiracetam (Levetiracetam 500 Mg Tablet) 500 mg PO BID [facility] Last Admin: 06/30/23 09:03 Dose: 500 mg Documented By: DANNI Magnesium Hydroxide (Milk Of Magnesia 30 Ml Oral.Susp) 30 ml PO DAILY PRN PRN Reason: Constipation Methylprednisolone Sodium Succinate (Methylprednisolone Sod Succ 125 Mg/2 Ml Vial) 60 mg IVPUSH Q6H [facility] Last Admin: 06/30/23 07:25 Dose: 60 mg Documented By: CRYSTAL Metoprolol Tartrate (Metoprolol Tartrate 25 Mg Tablet) 25 mg PO DAILY [facility]; Protocol Last Admin: 06/30/23 09:06 Dose: 25 mg Documented By: DANNI Naloxone HCl (Naloxone Hcl Nasal 4 Mg [place]) 4 mg NOSTRILALT Q3M PRN PRN Reason: Opioid Overdose Nystatin (Nystatin Powder 15 Gm Bottle) 1 appl TOPICAL BID [facility]; Protocol Last Admin: 06/29/23 20:59 Dose: Not Given Documented By: KATY Non-Admin Reason: not avail Omeprazole (Omeprazole 20 Mg Capsule.Dr) 20 mg PO DAILY@0630 [facility] Last Admin: 06/30/23 07:25 Dose: 20 mg Documented By: CRYSTAL Oxycodone HCl (Oxycodone Hcl Immed Release 5 Mg Tablet) 5 mg PO Q4H PRN PRN Reason: Moderate Pain (Scale Score 5-6) Last Admin: 06/29/23 20:48 Dose: 5 mg Documented By: KATY Pantoprazole Sodium (Pantoprazole Sodium 40 Mg/10 Ml Vial) 40 mg IVPUSH DAILY@0630 [facility] Last Admin: 06/30/23 07:25 Dose: 40 mg Documented By: CRYSTAL Sodium Biphosphate/Sodium Phosphate (Sodium Phosphate,[place]-Dibasic 133 Ml Enema) 118 ml [place] DAILY PRN PRN Reason: Constipation Thiamine HCl (Thiamine Hcl 100 Mg Tablet) 100 mg PO DAILY [facility] Last Admin: 06/30/23 09:05 Dose: 100 mg Documented By: DANNI Trazodone HCl (Trazodone Hcl 50 Mg Tablet) 50 mg PO BEDTIME [facility] Last Admin: 06/29/23 20:48 Dose: 50 mg Documented By: KATY Labs 06/30/23 06:46 06/30/23 08:55 Labs: Laboratory Results - last 24 hr 06/29/23 06/29/23 06/30/23 12:19 16:55 06:46 MCV MCH MCHC RDW Plt Count MPV Absolute Nucleated RBC Nucleated RBC % (auto) Anion Gap Estim Creat Clear Calc Cancelled Estimated GFR Cancelled POC Glucose 129 H Random Glucose Calcium B-Natriuretic Peptide Hepatitis A IgM Ab Nonreactive Hep Bs Antigen Negative Hep Bs Antibody NONREACTIVE Hep B Core Total Ab Nonreactive Hepatitis C Ab (EIA) Reactive H 06/30/23 06/30/23 06/30/23 06:46 06:46 07:48 MCV 91.5 MCH 27.0 MCHC 29.5 L RDW 14.4 Plt Count 47 L D MPV 12.2 Absolute Nucleated RBC 0.000 Nucleated RBC % (auto) 0.0 Anion Gap Estim Creat Clear Calc Estimated GFR POC Glucose 90 Random Glucose Calcium B-Natriuretic Peptide 1257 H Hepatitis A IgM Ab Hep Bs Antigen Hep Bs Antibody Hep B Core Total Ab Hepatitis C Ab (EIA) 06/30/23 06/30/23 08:55 11:21 MCV MCH MCHC RDW Plt Count MPV Absolute Nucleated RBC Nucleated RBC % (auto) Anion Gap 14 Estim Creat Clear Calc 45.1 Estimated GFR 45 POC Glucose 164 H Random Glucose 137 H Calcium 9.0 B-Natriuretic Peptide Hepatitis A IgM Ab Hep Bs Antigen Hep Bs Antibody Hep B Core Total Ab Hepatitis C Ab (EIA) Microbiology Microbiology Results: Microbiology 06/28/23 13:13 Gram Stain - Final Sputum - Expectorated Sputum Culture - Final 06/27/23 23:18 Blood Culture - Preliminary Blood - Venous No growth after 48 hours. 06/27/23 23:18 Blood Culture - Preliminary Blood - Venous No growth after 48 hours. Assessment and Plan (1) Acute on chronic respiratory failure with hypoxia and hypercapnia: Status: Acute (2) Splenomegaly: Status: Acute (3) Hepatitis C: Status: Acute Plan A 77 years old lady with PMH of COPD, smoking, dCHF, DM2 among others who presented with acute hypoxic failure from COPD exacerbation requiring ICU admission and Bipap management. Acute hypoxic hypercapnic respiratory failure 2/2 COPD exacerbation w status asthmaticus and pneumonia on 2L continue Nebulizers decrease IV steroids Continue Doxycycline and Meropenem wean down O2 Overnight oxymetry study Spleenomegaly Imaging concerning for cirrhosis of liver Hepatitis profile positive for hepatitis C, check RNA, to be followed as outpatient for treatment options Hematology eval Morbid obesity advised to lose weight Type 2 DM SSI diabetic diet Diastolic CHF Continue home medications Seizure disorder? Keppra DVT PPx Patient will need overnight stay for hypoxia pending clinical improvement and safe discahrge plan. Time Spent With Patient Time: Total time managing care of this patient today ____ minutes. Quality Stroke Does the patient have a stroke diagnosis?: No VTE Prior VTE?: No VTE Risk Level:: Medical - moderate - high VTE Device Contraindication: N/A - Device Ordered VTE Drug Contraindication: N/A - Med Ordered
[2023-06-30] MEDS: Artificial Tears 15 ML DROPS 1 DROP EYE-BOTH ×3 (12:02→20:30)
[2023-06-30] MEDS: Lactulose 20 GM/30 ML SOLUTION PO (12:02)
--- NOTE | 2023-06-30 13:36 | MHC.CM.PN ---
PER RESPIRATORY PT'S SLEEP STUDY LAST NOC WAS INCONCLUSIVE AND WILL BE REDONE TONIGHT, CM WILL CONT TO FOLLOW D/C NEEDS.
[2023-06-30 16:12] LABS: Glucose, Whole Blood 79 mg/dL (60-115)
[2023-06-30] MEDS: oxyCODONE HCl Immed Release 5 MG TABLET PO (17:39)
[2023-06-30] MEDS: ALPRAZolam 0.25 MG TABLET PO (17:40)
[2023-06-30] MEDS: bisacodyL 5 MG TABLET.DR 30 MG PO (20:25)
[2023-06-30] MEDS: traZODone HCL 50 MG TABLET PO (20:25)
[2023-06-30 20:41] LABS: CDiff Gene PCR NEGATIVE (Negative)
[2023-06-30 21:11] LABS: Glucose, Whole Blood 226 mg/dL (60-115)
[2023-07-01] VITALS: BP 159/74; PULSE 75; RESP 20; TEMP 36.4; O2SAT 93
[2023-07-01] MEDS: Heparin Sodium,Porcine 5,000 UNIT/ML VIAL 5000 UNIT SUBCUT ×2 (00:27→10:47)
--- NOTE | 2023-07-01 01:47 | PC.NURSE ---
Pt A&OX4. VSS. Telemetry ST-SR. Pt refused Lactulose. HS POC 226. Pt denies sob/resp distress. On 2L NC and respiratory has pt on sleep study overnight. Device in place. Purewick draining to suction. No c/o pain at this time. Pt sleeping soundly. Bed alarm on and call laureano within reach.
[2023-07-01 04:00] VITALS: BP 164/71; PULSE 71; RESP 18; TEMP 36.4; O2SAT 93
[2023-07-01] MEDS: Pantoprazole Sodium 40 MG/10 ML VIAL IVPUSH (06:07)
[2023-07-01] MEDS: Doxycycline Hyclate 100 MG in 0.9 % Sodium Chloride 250 ML 166.67 MG IV (06:08)
[2023-07-01] MEDS: methylPREDNISolone Sod Succ 125 MG/2 ML VIAL 60 MG IVPUSH (06:08)
[2023-07-01] MEDS: Omeprazole 20 MG CAPSULE.DR PO (06:15)
--- NOTE | 2023-07-01 06:19 | PC.RT ---
Sleep study started on 06/30/23 @ 2300 stopped on 07/01/23 @ 0615.
[2023-07-01 06:41] LABS: Anion Gap 10 (12-20); Blood Urea Nitrogen 33 mg/dL (9-16); Calcium 9.3 mg/dL (8.4-10.2); Carbon Dioxide 33 mmol/L (22-29); Chloride 105 mmol/L (96-108); Creatinine Clr Calc Pharmacy 52.8; Estimated Glomerular Filt Rate 55; Glucose Random 132 mg/dL (60-115); Potassium 4.5 mmol/L (3.3-5.1); Sodium 143 mmol/L (135-145)
[2023-07-01 07:33] VITALS: BP 138/78; PULSE 71; RESP 18; TEMP 36.3; O2SAT 97
[2023-07-01 07:40] LABS: Glucose, Whole Blood 124 mg/dL (60-115)
[2023-07-01] MEDS: Albuterol/Iprat 2.5/0.5MG 3 ML AMPUL.NEB INHALE ×2 (07:51→11:28)
[2023-07-01 07:54] VITALS: PULSE 77; RESP 16; O2SAT 99
--- NOTE | 2023-07-01 09:52 | MHC.CM.PN ---
IMM 07/01/23 Patient is discharged today. She will return to [facility] via BLS. 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
[2023-07-01] MEDS: Gabapentin 300 MG CAPSULE PO (10:39)
[2023-07-01] MEDS: Benzonatate 100 MG CAPSULE 200 MG PO (10:39)
[2023-07-01] MEDS: Furosemide 20 MG TABLET 60 MG PO (10:39)
[2023-07-01] MEDS: Folic Acid 1 MG TABLET PO (10:40)
[2023-07-01] MEDS: Thiamine HCL 100 MG TABLET PO (10:40)
[2023-07-01] MEDS: levETIRAcetam 500 MG TABLET PO (10:40)
[2023-07-01] MEDS: guaiFENesin LA 600 MG TAB.ER.12H PO (10:40)
[2023-07-01] MEDS: Metoprolol Tartrate 25 MG TABLET PO (10:40)
[2023-07-01] MEDS: ALPRAZolam 0.25 MG TABLET PO (10:51)
[2023-07-01] MEDS: oxyCODONE HCl Immed Release 5 MG TABLET PO (10:51)
[2023-07-01 11:24] VITALS: BP 132/74; PULSE 65; RESP 18; TEMP 36.7; O2SAT 94
[2023-07-01 11:29] VITALS: PULSE 66; RESP 18; O2SAT 91
[2023-07-01 11:35] LABS: Glucose, Whole Blood 188 mg/dL (60-115)
--- NOTE | 2023-07-01 11:39 | PM.DS ---
DS: Providers Provider Date of Service: 07/01/23 Date of admission: 06/28/23 00:22 Primary care physician: Unknown Physician DS: Diagnosis Discharge Diagnosis (1) Acute on chronic respiratory failure with hypoxia and hypercapnia: Status: Acute (2) Splenomegaly: Status: Acute (3) Status asthmaticus with COPD (chronic obstructive pulmonary disease): Status: Acute (4) Acute exacerbation of chronic obstructive airways disease: Status: Acute (5) Pneumonia: Status: Acute (6) Sepsis: Status: Acute DS: Summary Hospital Course Hospital Course: Admission note HPI 77-year-old female who still is smoker and has a history of COPD, obesity who states she had recently had the total hip arthroplasty a [facility] about 2 months ago was sent to the emergency room via EMS due to shortness of breath, cough with green sputum production and hypoxia as she was noted to have a low sat at the rehab facility, EMS found her to be hypoxic at 75% the patient was placed on 2 L and sick cannula and subsequently on CPAP for transport with improvement of her oxygenation to 93 and 94%. ?While in the emergency room, patient was noted to be hemodynamically stable, but was hypoxic without oxygen replacement, her workup was significant for white count 15 0.6, stable H&H, her ABG showed pH of 7.31, pCO2 67, PO2 88 in HC03 of 34, the patient was kept on BiPAP, chest x-ray showed what appears to be patchy perihilar and basilar opacities on the right side suspicious for pneumonia.? Patient was given steroids, breathing treatments, treated with Rocephin then Zosyn, however in light of the possibility of her being fluid overloaded due to a high BNP, she was also given Lasix although the chest x-ray did not show any pulmonary vascular congestion.? It shows then switched to BiPAP, she was deemed him in [place] close stable and not in septic shock but they felt she met criteria for sepsis although given the concern for fluid overload no IV fluids were given.? During my evaluation the patient continues to be on BiPAP, appears to be in [id number] respiratory distress and is not able to answer questions. Hospital course Acute hypoxic hypercapnic respiratory failure 2/2 COPD exacerbation w status asthmaticus and pneumonia at time of presentaiton requiring ICU admission for BiPAP management with good response. Chest images concerning for infiltrates. Treated with nebulizers, steroids, antibiotics Doxycycline and Meropenem and oxygen supplement which was weaned down to 2L at time of discharge. Advised to quit smoking completely. To be weaned down of O2 at the facility. Spleenomegaly 2/2 cirrhosis of liver likely from Hepatitis C infx. Hepatitis profile positive for hepatitis C, check RNA still pending,? to be followed as outpatient as she reports finishing treatment for Hep C. Continue tapering dose steroids as prescribed Continue antibiotics Cough medicine as needed we Advise you to quit smoking completely, NRT patches provided Time Spent with Patient Time attestation: Total time managing care of this patient today ____ minutes. Discharge coordination time: Greater than 30 minutes Quality: Safe Use of Opioids Does Pt have an Active Cancer Diagnosis on the Problem List?: No Quality: Stroke Does the patient have a stroke diagnosis?: No Physical Exam Vital Signs: Vital Signs: Last Vital Signs Temp 98.1 F 07/01/23 11:24 Pulse 66 07/01/23 11:29 Resp 18 07/01/23 11:29 BP 132/74 07/01/23 11:24 Pulse Ox 94 07/01/23 11:24 O2 Del Method Room Air 07/01/23 11:24 O2 Flow Rate 2 07/01/23 07:33 FiO2 28 06/28/23 23:46 Oxygen Flow Rate 40 06/27/23 22:52 BMI result Body Mass Index 39.5 Const: Other: Constitutional : Awake, interactive, no respiratory distress Neck : Normal inspection, Supple Cardiovascular : RRR, no JVP, trace lower extremity edema Respiratory : fair bilateral air entry, no crackles, faint fine expiratory wheezes, On 2L O2 Gastrointestinal: soft, lax, Normal bowel sounds, Non tender Skin : Warm, Dry Neurological : Alert & oriented x3, No focal deficit DS: Data Data Completed and Pending Labs on day of discharge: Laboratory Results - last 24 hr 06/30/23 06/30/23 06/30/23 11:21 16:07 16:34 Sodium Potassium Chloride Carbon Dioxide Anion Gap BUN Creatinine Estim Creat Clear Calc Estimated GFR POC Glucose 164 H 79 Random Glucose Calcium C. difficile Tox B Gene NEGATIVE 06/30/23 07/01/23 07/01/23 21:04 06:08 07:37 Sodium 143 Potassium 4.5 Chloride 105 Carbon Dioxide 33 H Anion Gap 10 L BUN 33 H Creatinine 0.99 Estim Creat Clear Calc 52.8 Estimated GFR 55 POC Glucose 226 H 124 H Random Glucose 132 H Calcium 9.3 C. difficile Tox B Gene 07/01/23 11:28 Sodium Potassium Chloride Carbon Dioxide Anion Gap BUN Creatinine Estim Creat Clear Calc Estimated GFR POC Glucose 188 H Random Glucose Calcium C. difficile Tox B Gene Preliminary micro results at discharge 06/27/23 23:18 Blood Culture - Preliminary Blood - Venous No growth after 48 hours. 06/27/23 23:18 Blood Culture - Preliminary Blood - Venous No growth after 48 hours. Imaging Chest x-ray: Radiologist's impression: ITS Impressions Chest X-Ray 06/27/23 23:25 IMPRESSION: Patchy right perihilar and basilar airspace opacities, suspicious for pneumonia in the proper clinical setting. Questionable patchy left basilar opacity. Radiographic followup after treatment/resolution of symptoms is recommended. Chest CTA 06/28/23 02:05 IMPRESSION: 1. Limited evaluation due to bolus timing and respiratory motion artifact. While no central/lobar pulmonary embolus is seen, the possibility of segmental or subsegmental emboli cannot be excluded on basis of this exam. 2. Patchy areas of consolidation in the bilateral lower lobes, and to a lesser degree in the posterior upper lobes and right middle lobe. Some areas of tree-in-bud type nodularity are also noted. Appearance is most suggestive of an infectious/inflammatory etiology. Follow-up CT in approximately 3 months is recommended to assess for resolution of the consolidations and exclude underlying mass. 3. Cirrhotic morphology of the liver. VTE: indeterminate. Discharge Plan Discharge Anticipated Discharge Date/Time: 07/01/23 11:20 Patient Disposition: [facility] Discharge Diagnosis: Acute hypoxic respiratory failure with Pneumonia and COPD exacerbation Referrals: [facility] [Outside] - 1 Week Physician,Unknown J [Primary Care Provider] - 1 Week Discharge Medications: New benzonatate 100 mg Capsule 200 mg PO TID Qty: 30 0RF guaifenesin [Mucinex] 600 mg Tablet Extended Release 12hr 600 mg PO BID Qty: 20 0RF doxycycline monohydrate 100 mg capsule 100 mg PO BID Qty: 10 0RF cefuroxime axetil 500 mg tablet 500 mg PO BID Qty: 10 0RF prednisone 10 mg tablet See Taper PO DIRECTED Qty: 30 0RF Taper: Prednisone 40 mg daily for 3 Days and 0 Hour 30 mg daily for 3 Days and 0 Hour 20 mg daily for 3 Days and 0 Hour 10 mg daily for 3 Days and 0 Hour Rx Instructions: see taper instructions nicotine 14 mg/24 hr patch 24 hour 1 patch transdermal DAILY Qty: 28 0RF Continued multivitamin Tablet 1 tab PO DAILY trazodone 50 mg Tablet 50 mg PO BEDTIME cetirizine 10 mg Tablet 10 mg PO DAILY levetiracetam [Keppra] 500 mg Tablet 500 mg PO BID thiamine HCl (vitamin B1) 100 mg Tablet 100 mg PO DAILY alprazolam [Xanax] 0.25 mg Tablet 0.25 mg PO BID PRN (Reason: Anxiety) magnesium hydroxide [Milk of Magnesia] 400 mg/5 mL Suspension 30 ml PO DAILY PRN (Reason: Constipation) bisacodyl 10 mg Suppository 10 mg MN DAILY PRN (Reason: Constipation) pantoprazole 40 mg Tablet,Delayed Release (Dr/Ec) 40 mg PO DAILY@0630 lidocaine 5 % Adhesive Patch,Medicated 1 patch TOPICAL DAILY Rx Instructions: apply to hips topically; remove after 12 hrs Fleet Enema 19-7 gram/118 mL Enema 118 ml MN DAILY PRN (Reason: Constipation) gabapentin 300 mg Capsule 300 mg PO TID folic acid 1 mg Tablet 1 mg PO DAILY bisacodyl [Dulcolax (bisacodyl)] 5 mg Tablet,Delayed Release (Dr/Ec) 30 mg PO BEDTIME furosemide 20 mg Tablet 60 mg PO DAILY nystatin 100,000 unit/gram Powder 1 appl TOPICAL BID Rx Instructions: apply to periarea albuterol sulfate [ProAir HFA] 90 mcg/actuation Hfa Aerosol Inhaler 2 puff INHALATION BID fluticasone propionate [Flonase Allergy Relief] 50 mcg/actuation [place],Suspension 1 spray INTRANASAL BID Rx Instructions: administer into each nostril oxycodone 5 mg Tablet 5 mg PO Q4H PRN (Reason: Moderate Pain (Scale Score 5-6)) escitalopram oxalate 20 mg Tablet 20 mg PO DAILY Artificial Tears (PF) Dropperette 1 drp OPHTHALMIC (EYE) TID Rx Instructions: 1 drop into both eyes metoprolol tartrate 25 mg Tablet 25 mg PO DAILY acamprosate 333 mg Tablet,Delayed Release (Dr/Ec) 333 mg PO TID lactulose 10 gram/15 mL Solution 30 ml PO Q2D@0900,1500,2100 Muscle Rub 15-10 % Cream 1 appl TOPICAL DAILY PRN (Reason: neck pain) Rx Instructions: apply to neck diclofenac sodium 1 % Gel 4 g TOPICAL QID PRN (Reason: Pain) Rx Instructions: apply to hips naloxone [Narcan] 4 mg/actuation [place],Non-Aerosol 4 mg INTRANASAL Q3M PRN (Reason: Opioid Overdose) Rx Instructions: spray 1 dose into ONE nostril; alternate nostrils w each dose until help arrives Joshletasha Ellipta 200-62.5-25 mcg Blister With Device 1 inh INHALATION DAILY ipratropium-albuterol 0.5 mg-3 mg(2.5 mg base)/3 mL Solution For Nebulization 3 ml INHALATION Q8H PRN (Reason: Shortness Of Breath Or Wheezing) tizanidine 2 mg Tablet 2 mg PO Q8H PRN (Reason: Muscle Spasm) Discharge Orders: Discharge Order (Routine); Ordered 07/01/23 Ordered By: Angelica Brooks Diet: Advance to usual diet Activity on Discharge: As tolerated Stand Alone Forms: Patient Portal Discharge page Care Plan Goals: Read below Health Concerns: Read below Plan of Treatment: Read below Assessment: Admitted to ICU with respiratory failure requiring BiPAP, O2 supplement, nebulizers, steroids and antibiotics as your found to have pneumonia with COPD exacerbation. Continue tapering dose steroids as prescribed Continue antibiotics Cough medicine as needed we Advise you to quit smoking completely, NRT patches provided
[2023-07-01] MEDS: Artificial Tears 15 ML DROPS 1 DROP EYE-BOTH (12:12)
[2023-07-01 16:29] LABS: HCV RNA PCR Qn <1.18 NOT DETECTED Log IU/mL (NOT DETECTED); HCV RNA PCR Qn <15 NOT DETECTED IU/mL (NOT DETECTED)
== END 2023-07-01 12:37 | disposition skilled nursing facility (03) | DRG 871 ==
LOC: HO.ED 06-28 00:11 → HO.EDOVER 06-28 00:28 → HO.ICU 06-28 01:21 → HO.IMC 06-29 13:21
PROVIDERS: Internal Medicine Cardiovascular Disease; Nurse Practitioner Family; Admitting Provider Physician Assistant Medical; Emergency Provider Emergency Medicine; Visit Provider Student in an Organized Health Care Education/Training Program
DX: A41.9 Sepsis, unspecified organism (principal); J18.9 Pneumonia, unspecified organism; J96.22 Acute and chronic respiratory failure with hypercapnia; J96.21 Acute and chronic respiratory failure with hypoxia; J44.0 Chronic obstructive pulmonary disease with (acute) lower respiratory infection; J44.1 Chronic obstructive pulmonary disease with (acute) exacerbation; J45.902 Unspecified asthma with status asthmaticus; K74.60 Unspecified cirrhosis of liver; G40.909 Epilepsy, unspecified, not intractable, without status epilepticus; E86.0 Dehydration; D69.6 Thrombocytopenia, unspecified; B19.20 Unspecified viral hepatitis C without hepatic coma; E66.01 Morbid (severe) obesity due to excess calories; Z68.39 Body mass index [BMI] 39.0-39.9, adult; F17.210 Nicotine dependence, cigarettes, uncomplicated; Z20.822 Contact with and (suspected) exposure to COVID-19; Z71.6 Tobacco abuse counseling; Z79.51 Long term (current) use of inhaled steroids; Z79.899 Other long term (current) drug therapy
CPT/HCPCS: 0241U; 36415; 71045; 71275; 80048; 80053; 80076; 81001; 82040; 82565; 82803; 82947; 83605; 83690; 83735; 83880; 84100; 84484; 85025; 85027; 85379; 86704; 86706; 86709; 86803; 87040; 87070; 87205; 87340; 87493; 87522; 87640; 87641; 93005; 93306; 94640; 94660; 94799; 95806; 97162; 99285; J1643; J1940; J2185; J2543; J2930; J3370; P9047; Q9957; Q9967

== ENCOUNTER 2023-06-28 00:22 | Outpatient (BNV) | payer MEDICARE, MEDICAID, SELFPAY | END 2023-06-29 10:13 | PROVIDERS: Admitting Provider Physician Assistant Medical; Emergency Provider Emergency Medicine; Visit Provider Internal Medicine | DX: R06.83 Snoring (principal) | CPT/HCPCS: 95806 ==

== ENCOUNTER 2023-06-28 00:22 | Outpatient (BNV) | payer MEDICARE, MEDICAID, SELFPAY | END 2023-06-28 07:00 | PROVIDERS: Admitting Provider Physician Assistant Medical; Emergency Provider Emergency Medicine; Visit Provider Internal Medicine | DX: I35.0 Nonrheumatic aortic (valve) stenosis (principal) | CPT/HCPCS: 93306 ==

== ENCOUNTER → 2023-06-28 00:22 | Outpatient (BNV) | payer MEDICARE, MEDICAID, SELFPAY | PROVIDERS: Admitting Provider Physician Assistant Medical; Emergency Provider Emergency Medicine; Visit Provider Student in an Organized Health Care Education/Training Program | DX: J96.21 Acute and chronic respiratory failure with hypoxia (principal); J96.22 Acute and chronic respiratory failure with hypercapnia; J45.902 Unspecified asthma with status asthmaticus; A41.9 Sepsis, unspecified organism; R16.1 Splenomegaly, not elsewhere classified; J18.9 Pneumonia, unspecified organism | CPT/HCPCS: 99233; 99239 ==

== ENCOUNTER → 2023-06-28 00:22 | Outpatient (BNV) | payer MEDICARE, MEDICAID, SELFPAY | PROVIDERS: Admitting Provider Physician Assistant Medical; Emergency Provider Emergency Medicine; Visit Provider Physician Assistant Medical | DX: J96.21 Acute and chronic respiratory failure with hypoxia (principal); J96.22 Acute and chronic respiratory failure with hypercapnia; J18.9 Pneumonia, unspecified organism; A41.9 Sepsis, unspecified organism; J44.1 Chronic obstructive pulmonary disease with (acute) exacerbation; E66.01 Morbid (severe) obesity due to excess calories; E11.9 Type 2 diabetes mellitus without complications; K74.60 Unspecified cirrhosis of liver; R16.1 Splenomegaly, not elsewhere classified | CPT/HCPCS: 99291; 99292 ==

== ENCOUNTER 2023-07-12 11:22 | Emergency (ER) | payer MEDICARE, MEDICAID, SELFPAY ==
--- NOTE | ~2023-07-12 | CT_ITS ---
EXAMINATION: CT ABDOMEN AND PELVIS WITH CONTRAST CLINICAL INFORMATION: Abdominal pain, distention, vaginal bleeding. COMPARISON: Chest CT from 06/28/2023 TECHNIQUE: Multidetector volumetric images were obtained from the superior aspect of the liver through the pubic symphysis following administration 85 mL of Omnipaque 350 intravenous contrast. Sagittal and coronal reformatted images were obtained on the technologist's workstation. Oral contrast: No This CT examination was performed using dose optimization techniques as appropriate, variously including the following: *Automated exposure control *Adjustment of mA and/or kV according to patient size (this includes techniques or standardized protocols for targeted exams where dose is matched to indication/reason for exam; i.e. extremities or head) *Use of iterative reconstruction technique DLP: 1023 mGy-cm FINDINGS: LOCALIZER IMAGES: Cholecystectomy clips in the right upper quadrant. Normal bowel gas pattern. Obese body habitus. Intact appearance of left total hip arthroplasty hardware and of the partially visualized right femoral fixation hardware. LUNG BASES: Mild bibasilar atelectasis. The cardiac chambers are normal in size. Mitral valve annulus is calcified. Paraesophageal varices are present. No pulmonary consolidation or pleural effusion. LIVER: The cirrhotic liver has nodular surface contour. 1.4 cm hypodense focus in hepatic segment 4 has attenuation of 20 HU consistent with slightly hyperdense cyst. There was no arterial hyperenhancement in this focus on 06/28/2023. No suspicious-appearing liver lesion. GALLBLADDER AND BILIARY TREE: Gallbladder is surgically absent and common bile duct likely chronically mildly dilated, measuring up to 0.9 - 1 cm diameter. No intrahepatic ductal dilatation. PANCREAS: Mildly, diffusely atrophied. No edema, pancreatic ductal dilatation or mass. SPLEEN: Mild splenomegaly. Spleen measures up to 15.5 cm maximum dimension. There appear to be two calcified granulomas of the spleen. The two small, 1 cm hypodense foci in the spleen could represent cysts or hemangiomas. ADRENAL GLANDS: Normal. KIDNEYS AND URETERS: Bilateral renal cortical atrophy. Both kidneys have lobulated contour. No renal stones or hydronephrosis. BLADDER: Decompressed by Morales catheter. BOWEL AND PERITONEUM: No dilated bowel loops. No evidence of bowel wall hyperenhancement or bowel obstruction. Small amount of abdominal free fluid is present. No pneumoperitoneum or abscess. ABDOMINAL WALL: There is edema of subcutaneous tissues of the abdominal wall, flanks and thighs. There is diastases of rectus abdominis muscles. VASCULATURE: Abdominal aorta is normal in caliber. Inferior vena cava is normal. There are paraesophageal, left gastric and perisplenic varices. LYMPH NODES: No pathologic sized lymph nodes in the abdomen or pelvis. No inguinal lymphadenopathy. PELVIC VISCERA: Leiomyomas of the uterus. A leiomyoma of approximately 2.5 cm size in the uterine body appears to have submucosal extension. No adnexal mass. MUSCULOSKELETAL: Multilevel degenerative arthropathy of the spine. Old T12 compression fracture with approximately 30% anterior height loss. Also, there are concave depressions of multiple vertebral endplates, including T11 and L1 through L4. No suspicious osseous lesions. Normal alignment at the left hip, status post total hip arthroplasty. At the right femur, the visualized antegrade fixation nail and dynamic head-neck screw are well-positioned. There appears is a focal area of osteonecrosis within the superior right femoral head. CT/CT abdomen pelvis w IV con IMPRESSION: * Cirrhotic liver with presence of splenomegaly and paraesophageal, left gastric and perisplenic varices. * Mild anasarca. Small amount of abdominal ascites is present. * Leiomyomatous uterus. * Skeletal findings include old T12 compression fracture as well as multiple concave depressions of other vertebral endplates. No acute fractures.
[2023-07-12 11:34] VITALS: BP 114/55; BP 116/76; PULSE 64; PULSE 67; RESP 18; TEMP 36.7; O2SAT 94; O2SAT 99; BMI 30.9
--- NOTE | 2023-07-12 11:40 | PC.NURSE ---
Patient reports vaginal bleeding x 4 days. Reports usp put in beverly cath to see if blood has been in her urine however urine has been without blood. Patient reports no hx of vaginal bleeding. 16fr 300c beverly cath in place draining clear yellow urine. Denies pain but states ocassionally has some discomfort that feels like she is getting her period.
--- NOTE | 2023-07-12 12:06 | ED_ITS ---
HPI - Female Genitourinary General Chief complaint: Vaginal Bleeding Stated complaint: Urine Bleeding Time Seen by Provider: 07/12/23 11:35 Source: patient and old records reviewed Mode of arrival: EMS Limitations: no limitations History of Present Illness HPI Narrative: 77 yo female with PMH of COPD, dCHF, DM, seizures, not on blood thinners - states her menses stopped at age 36 cannot tell me why she still has her uterus who come in with c/o 4 days of intermittent vaginal bleeding - states not rectal and she is [facility] [place] so they put a beverly in and there is no blood in the urine. This has never happened to her before. She doesn't remember terrible menses. Her daughter did have a hysterectomy but she is not sure why. She is not aware of a family history of cancers. The patient has mild intermittent cramping left lower side. MD elicited complaint: vaginal bleeding and pelvic pain Onset (ago): day(s) (4) Location of symptoms: suprapubic Severity: mild Female Urogenital Radiation: Non-Radiating Quality of pain: cramping Consistency: intermittent Vaginal discharge: none Vaginal bleeding: scant and bright red Exacerbating factors: none Relieving factors: none Associated symptoms: denies other symptoms Treatment prior to arrival: none Sexual activity: No Related Data Home Medications Medication Instructions Recorded Confirmed acamprosate 333 mg tablet,delayed 333 mg PO TID 06/28/23 06/28/23 release albuterol sulfate 90 mcg/actuation 2 puff inhalation BID 06/28/23 06/28/23 aerosol inhaler (ProAir HFA) alprazolam 0.25 mg tablet (Xanax) 0.25 mg PO BID PRN Anxiety 06/28/23 06/28/23 bisacodyl 10 mg rectal suppository 10 mg OH DAILY PRN Constipation 06/28/23 06/28/23 bisacodyl 5 mg tablet,delayed 30 mg PO BEDTIME 06/28/23 06/28/23 release (Dulcolax (bisacodyl)) cetirizine 10 mg tablet 10 mg PO DAILY 06/28/23 06/28/23 dextran 70-hypromellose eye drops 1 drp ophthalmic (eye) TID 06/28/23 06/28/23 in a dropperette (Artificial Tears (PF) drops in a dropperette) diclofenac sodium 1 % topical gel 4 g topical QID PRN Pain 06/28/23 06/28/23 escitalopram oxalate 20 mg tablet 20 mg PO DAILY 06/28/23 06/28/23 fluticasone fur. 200 mcg-umeclid 1 inh inhalation DAILY 06/28/23 06/28/23 62.5 mcg-vilant 25 mcg inhalat.powder (Trelegy Ellipta) fluticasone propionate 50 1 spray intranasal BID 06/28/23 06/28/23 mcg/actuation nasal spray,suspension (Flonase Allergy Relief) folic acid 1 mg tablet 1 mg PO DAILY 06/28/23 06/28/23 furosemide 20 mg tablet 60 mg PO DAILY 06/28/23 06/28/23 gabapentin 300 mg capsule 300 mg PO TID 06/28/23 06/28/23 ipratropium 0.5 mg-albuterol 3 mg 3 ml inhalation Q8H PRN Shortness 06/28/23 06/28/23 (2.5 mg base)/3 mL nebulization Of Breath Or Wheezing soln lactulose 10 gram/15 mL oral 30 ml PO Q2D@0900,1500,2100 06/28/23 06/28/23 solution levetiracetam 500 mg tablet 500 mg PO BID 06/28/23 06/28/23 (Keppra) lidocaine 5 % topical patch 1 patch topical DAILY 06/28/23 06/28/23 magnesium hydroxide 400 mg/5 mL 30 ml PO DAILY PRN Constipation 06/28/2306/08 oral suspension (Milk of Magnesia) methyl salicylate 15 %-menthol 10 1 appl topical DAILY PRN neck pain 06/28/23 06/28/23 % topical cream (Muscle Rub) metoprolol tartrate 25 mg tablet 25 mg PO DAILY 06/28/23 06/28/23 multivitamin 1 tab PO DAILY 06/28/23 06/28/23 naloxone 4 mg/actuation nasal 4 mg intranasal Q3M PRN Opioid 06/28/23 06/28/23 spray (Narcan) Overdose nystatin 100,000 unit/gram topical 1 appl topical BID 06/28/23 06/28/23 powder oxycodone 5 mg tablet 5 mg PO Q4H PRN Moderate Pain 06/28/23 06/28/23 (Scale Score 5-6) pantoprazole 40 mg tablet,delayed 40 mg PO DAILY@0630 06/28/23 06/28/23 release sodium phosphates 19 gram-7 118 ml OH DAILY PRN Constipation 06/28/23 06/28/23 gram/118 mL enema (Fleet Enema) thiamine HCl (vitamin B1) 100 mg 100 mg PO DAILY 06/28/23 06/28/23 tablet tizanidine 2 mg tablet 2 mg PO Q8H PRN Muscle Spasm 06/28/23 06/28/23 trazodone 50 mg tablet 50 mg PO BEDTIME 06/28/23 06/28/23 Previous Rx's Medication Instructions Recorded benzonatate 100 mg capsule 200 mg PO TID #30 caps 07/01/23 cefuroxime axetil 500 mg tablet 500 mg PO BID #10 tabs 07/01/23 doxycycline monohydrate 100 mg 100 mg PO BID #10 caps 07/01/23 capsule guaifenesin 600 mg tablet, 600 mg PO BID #20 tabs 07/01/23 extended release 12 hr (Mucinex) nicotine 14 mg/24 hr daily 1 patch transdermal DAILY #28 ea 07/01/23 transdermal patch prednisone 10 mg tablet See Taper PO DIRECTED #30 tabs 07/01/23 cefuroxime axetil 250 mg tablet 250 mg PO BID 7 days #14 tabs 07/12/23 Allergies Allergy/AdvReac Type Severity Reaction Status Date / Time acetaminophen Allergy Unknown Unknown Verified 06/27/23 22:57 Tuberculin AdvReac Unknown Unknown Uncoded 06/27/23 22:57 Review of Systems Review of Systems: Constitutional : No Fever, No Chills ENT/Mouth : No sore throat, No Rhinorrhea Eyes: No Eye Pain, No Redness Cardiovascular : No Chest Pain, No SOB Respiratory : No Cough, No Sputum, No Wheezing Gastrointestinal : no Nausea, No Vomiting, No Diarrhea, no abdominal pain, Genitourinary : positive irregular bleeding, No Dysuria, No Urinary Frequency, positive pelvic pain Musculoskeletal : No Myalgias Skin : No rash Neuro : No Weakness, No Headache Psych : No Anxiety/Panic, No Depression Heme/Lymph: No bruising, No Lymphadenopathy Endocrine : No Polyuria, No Polydipsia All other systems reviewed and are negative PENDING SALE TO [facility] Past Medical History Attestation statement: The following information was validated with the patient. Medical History CHF (congestive heart failure) Cirrhosis Hepatitis C Morbid obesity Splenomegaly Type 2 diabetes mellitus Social History Social History Household Members: None Housing: [facility] Do you presently have visiting nurse or other home services: No Alcohol intake: former Patient Tobacco Use Status: Current everyday Tobacco user Tobacco use type: Cigarette Cigarettes Per Day: 5 Smoked in Last 30 Days: Yes Use of substances other than those prescribed or required for medical reasons: No Advance Directives: Yes Advance Directives on File: Yes Advance Directives Date on File: 06/29/23 service: No Physical Exam Vital Signs: Vital Signs: Last Vital Signs Temp 98.1 F 07/12/23 11:34 Pulse 67 07/12/23 11:34 Resp 18 07/12/23 11:34 BP 114/55 L 07/12/23 11:34 Pulse Ox 94 07/12/23 11:34 O2 Del Method Room Air 07/12/23 11:34 BMI result Body Mass Index 30.9 Appearance: Alert. Oriented X3. No acute distress. Eyes: Pupils equal, round and reactive to light. ENT: Pharynx normal. Neck: Normal inspection. Neck supple. CVS: Normal heart rate and rhythm. Pulses normal. Respiratory: No respiratory distress. Breath sounds normal. Abdomen: Soft and non-tender. : no bloody in beverly cath tubing, one pad of blood not saturated no clots, scant to moderate on pad while in ED Skin: Skin warm and dry. Normal skin color. Normal skin turgor. Extremities: No lower extremity edema. No calf ttp Neuro: Oriented X 3. No motor deficit. No sensory deficit. Course Course Course Narrative: signed out to Dr. Thornton pending CT scan Medications Administered Discontinued Medications Generic Name Dose Route Start Last Admin Trade Name Freq PRN Reason Stop Dose Admin Ceftriaxone Sodium 1 gm/ 50 mls @ 100 mls/hr 07/12/23 14:35 07/12/23 14:44 Sodium Chloride IV 07/12/23 15:04 100 mls/hr ONCE ONE Administration Medical Decision Making Medical Decision Making MDM Narrative: 77 yo female with PMH of COPD, dCHF, DM, seizures, not on blood thinners here with vaginal bleeding x 4 days but no blood clots and mild cramping - she states her menses stopped abruptly at age 36. At this time I am going to obtain basic labs UA and CT scan for mass given she is slightly distended. She has no systemic symptoms. Differential Diagnosis Differential Diagnoses: The differential diagnosis associated with the presentation includes uterine mass, low platelets, ovarian cyst Admission/Observation Consideration of admission/observation: Escalation of care including admission/observation considered H/H stable no sig bleeding stable, can follow up with OB as outpatient Lab Data MDM Lab Attestation statement: I reviewed the patient's lab results. 07/12/23 12:18 07/12/23 13:40 Labs: Lab Results 07/12/23 07/12/23 07/12/23 Range/Units 12:18 12:18 12:56 WBC 7.6 (4.8-10.8) X10*3/uL RBC 4.31 (4.20-5.50) X10*6/uL Hgb 11.8 L (12.0-16.0) g/dl Hct 39.0 (37.0-47.0) % MCV 90.5 (80.0-98.0) fL MCH 27.4 (27.0-33.0) pg MCHC 30.3 L (31.0-35.0) g/dl RDW 16.6 H (11.0-16.0) % Plt Count 57 L (160-400) X10*3/uL MPV 12.1 (9.4-12.3) fL Immature Gran % (Auto) 0.8 H (0.0-0.4) % Neut % (Auto) 82.2 H (45-73) % Lymph % (Auto) 5.8 L (20-40) % [place] % (Auto) 10.3 (2-11) % Eos % (Auto) 0.8 (0-4) % Baso % (Auto) 0.1 (0-2) % Lymph # (Auto) 0.4 L (1.2-4.9) X10*3/uL [place] # (Auto) 0.8 (0.1-1.2) X10*3/uL Eos # (Auto) 0.1 (0.0-0.4) X10*3/uL Baso # (Auto) 0.0 (0.0-0.2) X10*3/uL Abs Immat Gran (auto) 0.06 H (0.00-0.03) X10*3/uL Absolute Neuts (auto) 6.3 (2.0-8.3) x10*3/uL Absolute Nucleated RBC 0.000 (0.0-0.012) X10*3/uL Nucleated RBC % (auto) 0.0 (0.0-0.2) /100WBC PT 12.3 (11.1-13.3) SEC INR 1.0 (0.9-1.1) Sodium (135-145) mmol/L Potassium (3.3-5.1) mmol/L Chloride (96-108) mmol/L Carbon Dioxide (22-29) mmol/L Anion Gap (12-20) BUN (9-16) mg/dL Creatinine (0.5-1.4) mg/dL Estim Creat Clear Calc Estimated GFR Random Glucose (60-115) mg/dL Calcium (8.4-10.2) mg/dL Magnesium (1.6-2.6) mg/dL Total Bilirubin (0.0-1.0) mg/dL Direct Bilirubin (0.0-0.5) mg/dL AST (5-31) U/L ALT (0-31) U/L Alkaline Phosphatase (39-117) U/L Total Protein (6.5-8.0) g/dL Albumin (3.5-5.0) g/dL Urine Color Yellow Urine Appearance Clear Urine pH 6.5 (5.0-9.0) Ur Specific [place] 1.010 (1.005-1.025) Urine Protein Trace (Neg-Trace) mg/dL Urine Glucose (UA) Negative (Negative) mg/dL Urine Ketones Negative (Negative) mg/dL Urine Blood Large (3+) H (Negative) Urine Nitrite Negative (Negative) Ur Leukocyte Esterase Large (3+) H (Negative) Urine RBC 0-2 (0-2) /HPF Urine WBC >50 H (0-5) /HPF Ur Squamous Epith Cells 0-2 (0-2) /HPF Other Crystals Present Urine Bacteria 4+ (None Seen) Hyaline Casts 3-5 (0-2) /LPF Granular Casts Present 07/12/23 Range/Units 13:40 WBC (4.8-10.8) X10*3/uL RBC (4.20-5.50) X10*6/uL Hgb (12.0-16.0) g/dl Hct (37.0-47.0) % MCV (80.0-98.0) fL MCH (27.0-33.0) pg MCHC (31.0-35.0) g/dl RDW (11.0-16.0) % Plt Count (160-400) X10*3/uL MPV (9.4-12.3) fL Immature Gran % (Auto) (0.0-0.4) % Neut % (Auto) (45-73) % Lymph % (Auto) (20-40) % [place] % (Auto) (2-11) % Eos % (Auto) (0-4) % Baso % (Auto) (0-2) % Lymph # (Auto) (1.2-4.9) X10*3/uL [place] # (Auto) (0.1-1.2) X10*3/uL Eos # (Auto) (0.0-0.4) X10*3/uL Baso # (Auto) (0.0-0.2) X10*3/uL Abs Immat Gran (auto) (0.00-0.03) X10*3/uL Absolute Neuts (auto) (2.0-8.3) x10*3/uL Absolute Nucleated RBC (0.0-0.012) X10*3/uL Nucleated RBC % (auto) (0.0-0.2) /100WBC PT (11.1-13.3) SEC INR (0.9-1.1) Sodium 143 (135-145) mmol/L Potassium 4.2 (3.3-5.1) mmol/L Chloride 108 (96-108) mmol/L Carbon Dioxide 32 H (22-29) mmol/L Anion Gap 7 L (12-20) BUN 15 (9-16) mg/dL Creatinine 0.83 (0.5-1.4) mg/dL Estim Creat Clear Calc 59.6 Estimated GFR > 60 Random Glucose 109 (60-115) mg/dL Calcium 8.8 (8.4-10.2) mg/dL Magnesium 2.1 (1.6-2.6) mg/dL Total Bilirubin 1.0 (0.0-1.0) mg/dL Direct Bilirubin 0.4 (0.0-0.5) mg/dL AST 18 (5-31) U/L ALT 9 (0-31) U/L Alkaline Phosphatase 70 (39-117) U/L Total Protein 5.9 L (6.5-8.0) g/dL Albumin 3.1 L (3.5-5.0) g/dL Urine Color Urine Appearance Urine pH (5.0-9.0) Ur Specific [place] (1.005-1.025) Urine Protein (Neg-Trace) mg/dL Urine Glucose (UA) (Negative) mg/dL Urine Ketones (Negative) mg/dL Urine Blood (Negative) Urine Nitrite (Negative) Ur Leukocyte Esterase (Negative) Urine RBC (0-2) /HPF Urine WBC (0-5) /HPF Ur Squamous Epith Cells (0-2) /HPF Other Crystals Urine Bacteria (None Seen) Hyaline Casts (0-2) /LPF Granular Casts Independent Interpretation I performed an independent interpretation of an: Ultrasound and CT Scan Radiology Impression Discussion of test interpretation with radiology: I have reviewed the radiologist's reading. Independent Historian Clinical information obtained from an independent historian. History obtained from or confirmed by: EMS External Record Review External record reviewed: Inpatient record Prescription Management I considered prescription management with: Antibiotic Discharge Plan Discharge Clinical Impression: Vaginal bleeding, Acute UTI Patient Disposition: Still a Patient Instructions: Dysfunctional Uterine Bleeding (ED), Urinary Tract Infection in Women (ED) Additional Instructions: return for worsening bleeding, clots larger than golf balls, worsening pain, dizziness or any other concerns. while on antibiotics take a probiotic. more than 8 loose stools a day is not normal. should take ceftin 250mg daily for 6 days. given dose of ceftriaxone in ED. if she does not need catheter remove it - source of infection call OB - needs further workup Prescriptions: New cefuroxime axetil 250 mg tablet 250 mg PO BID 7 Days Qty: 14 0RF No Action multivitamin Tablet 1 tab PO DAILY trazodone 50 mg Tablet 50 mg PO BEDTIME cetirizine 10 mg Tablet 10 mg PO DAILY levetiracetam [Keppra] 500 mg Tablet 500 mg PO BID thiamine HCl (vitamin B1) 100 mg Tablet 100 mg PO DAILY alprazolam [Xanax] 0.25 mg Tablet 0.25 mg PO BID PRN (Reason: Anxiety) magnesium hydroxide [Milk of Magnesia] 400 mg/5 mL Suspension 30 ml PO DAILY PRN (Reason: Constipation) bisacodyl 10 mg Suppository 10 mg OH DAILY PRN (Reason: Constipation) pantoprazole 40 mg Tablet,Delayed Release (Dr/Ec) 40 mg PO DAILY@0630 lidocaine 5 % Adhesive Patch,Medicated 1 patch TOPICAL DAILY Rx Instructions: apply to hips topically; remove after 12 hrs Fleet Enema 19-7 gram/118 mL Enema 118 ml OH DAILY PRN (Reason: Constipation) gabapentin 300 mg Capsule 300 mg PO TID folic acid 1 mg Tablet 1 mg PO DAILY bisacodyl [Dulcolax (bisacodyl)] 5 mg Tablet,Delayed Release (Dr/Ec) 30 mg PO BEDTIME furosemide 20 mg Tablet 60 mg PO DAILY nystatin 100,000 unit/gram Powder 1 appl TOPICAL BID Rx Instructions: apply to periarea albuterol sulfate [ProAir HFA] 90 mcg/actuation Hfa Aerosol Inhaler 2 puff INHALATION BID fluticasone propionate [Flonase Allergy Relief] 50 mcg/actuation [place],Suspension 1 spray INTRANASAL BID Rx Instructions: administer into each nostril oxycodone 5 mg Tablet 5 mg PO Q4H PRN (Reason: Moderate Pain (Scale Score 5-6)) escitalopram oxalate 20 mg Tablet 20 mg PO DAILY Artificial Tears (PF) Dropperette 1 drp OPHTHALMIC (EYE) TID Rx Instructions: 1 drop into both eyes metoprolol tartrate 25 mg Tablet 25 mg PO DAILY acamprosate 333 mg Tablet,Delayed Release (Dr/Ec) 333 mg PO TID lactulose 10 gram/15 mL Solution 30 ml PO Q2D@0900,1500,2100 Muscle Rub 15-10 % Cream 1 appl TOPICAL DAILY PRN (Reason: neck pain) Rx Instructions: apply to neck diclofenac sodium 1 % Gel 4 g TOPICAL QID PRN (Reason: Pain) Rx Instructions: apply to hips naloxone [Narcan] 4 mg/actuation [place],Non-Aerosol 4 mg INTRANASAL Q3M PRN (Reason: Opioid Overdose) Rx Instructions: spray 1 dose into ONE nostril; alternate nostrils w each dose until help arrives [place] Ellipta 200-62.5-25 mcg Blister With Device 1 inh INHALATION DAILY ipratropium-albuterol 0.5 mg-3 mg(2.5 mg base)/3 mL Solution For Nebulization 3 ml INHALATION Q8H PRN (Reason: Shortness Of Breath Or Wheezing) tizanidine 2 mg Tablet 2 mg PO Q8H PRN (Reason: Muscle Spasm) benzonatate 100 mg Capsule 200 mg PO TID Qty: 30 0RF guaifenesin [Mucinex] 600 mg Tablet Extended Release 12hr 600 mg PO BID Qty: 20 0RF doxycycline monohydrate 100 mg capsule 100 mg PO BID Qty: 10 0RF cefuroxime axetil 500 mg tablet 500 mg PO BID Qty: 10 0RF prednisone 10 mg tablet See Taper PO DIRECTED Qty: 30 0RF Taper: Prednisone 40 mg daily for 3 Days and 0 Hour 30 mg daily for 3 Days and 0 Hour 20 mg daily for 3 Days and 0 Hour 10 mg daily for 3 Days and 0 Hour Rx Instructions: see taper instructions nicotine 14 mg/24 hr patch 24 hour 1 patch transdermal DAILY Qty: 28 0RF Referrals: Mayank Do MD [Physician] - (OBGYN call for appointment)
[2023-07-12 12:30] LABS: MANUAL DIFF FLAG NO
[2023-07-12 12:34] LABS: Basophils Percent Auto 0.1 % (0-2); Eosinophils Absolute Auto 0.1 X10*3/uL (0.0-0.4); Eosinophils Percent Auto 0.8 % (0-4); Hemoglobin 11.8 g/dl (12.0-16.0); Imm Gran Abs Auto 0.06 X10*3/uL (0.00-0.03); Imm Gran Pct Auto 0.8 % (0.0-0.4); Lymphocytes Absolute Auto 0.4 X10*3/uL (1.2-4.9); Lymphocytes Percent Auto 5.8 % (20-40); Mean Corpuscular HGB Conc 30.3 g/dl (31.0-35.0); Mean Corpuscular Hemoglobin 27.4 pg (27.0-33.0); Mean Corpuscular Volume 90.5 fL (80.0-98.0); Mean Platelet Volume 12.1 fL (9.4-12.3); Monocytes Absolute Auto 0.8 X10*3/uL (0.1-1.2); Monocytes Percent Auto 10.3 % (2-11); Neutrophils Absolute Auto 6.3 x10*3/uL (2.0-8.3); Neutrophils Percent Auto 82.2 % (45-73); Platelet Count 57 X10*3/uL (160-400); Red Blood Count 4.31 X10*6/uL (4.20-5.50); Red Cell Distribution Width 16.6 % (11.0-16.0); White Blood Count 7.6 X10*3/uL (4.8-10.8)
[2023-07-12 12:38] LABS: Prothrombin Time 12.3 SEC (11.1-13.3)
[2023-07-12 13:15] LABS: Appearance Urine Clear; Color Urine Yellow; Glucose Urine UA Negative (Negative); Leukocyte Esterase Urine Large (3+) (Negative); Nitrite Urine Negative (Negative); PH 6.5 (5.0-9.0); UMIC TRIGGER UACC YES; Urine Blood Large (3+) (Negative); Urine Ketones Negative (Negative); Urine Protein Trace mg/dL (Neg-Trace)
[2023-07-12 13:16] LABS: Bacteria Urine 4+ (None Seen); Granular Casts Urine Present; Other Crystals Urine Present; RBC Urine 0-2 /HPF (0-2); Squamous Epithelial Cell Urine 0-2 /HPF (0-2); UACC Culture Trigger YES; WBC Urine >50 /HPF (0-5)
[2023-07-12 14:14] LABS: Alanine Aminotransferase 9 U/L (0-31); Albumin Level 3.1 g/dL (3.5-5.0); Alkaline Phosphatase 70 U/L (39-117); Anion Gap 7 (12-20); Aspartate Amino Transferase 18 U/L (5-31); Bilirubin Direct 0.4 mg/dL (0.0-0.5); Blood Urea Nitrogen 15 mg/dL (9-16); Calcium 8.8 mg/dL (8.4-10.2); Carbon Dioxide 32 mmol/L (22-29); Chloride 108 mmol/L (96-108); Creatinine Clr Calc Pharmacy 59.6; Estimated Glomerular Filt Rate > 60; Glucose Random 109 mg/dL (60-115); Magnesium 2.1 mg/dL (1.6-2.6); Potassium 4.2 mmol/L (3.3-5.1); Sodium 143 mmol/L (135-145); Total Protein 5.9 g/dL (6.5-8.0)
[2023-07-12] MEDS: cefTRIAXone sodium 1 GM in 0.9 % Sodium Chloride 50 ML IV (14:44)
[2023-07-12 15:47] VITALS: BP 124/61; PULSE 62; RESP 16; TEMP 36.8; O2SAT 94
[2023-07-12] MEDS: iohexoL 350 MG/ML 100 ML INFUS..BTL IV (16:39)
[2023-07-12 18:00] VITALS: BP 120/62; PULSE 74; RESP 16; TEMP 36.7; O2SAT 98
--- NOTE | 2023-07-12 18:29 | PC.NURSE ---
beverly cath removed per provider order
--- NOTE | 2023-07-12 19:20 | MHC.EDTECH ---
Plan of care is ongoing no further concerns as of present pt expresses no other needs at this time call light within reach
--- NOTE | 2023-07-12 20:47 | PC.NURSE ---
Nurse to Nurse report given to Dario at [facility]. Discharge summary and instructions given including directions to fadia/malena beverly.
== END 2023-07-12 20:50 | disposition skilled nursing facility (03) ==
PROVIDERS: Emergency Provider Emergency Medicine
DX: N93.9 Abnormal uterine and vaginal bleeding, unspecified (principal); N39.0 Urinary tract infection, site not specified; R10.2 Pelvic and perineal pain; Z79.899 Other long term (current) drug therapy
CPT/HCPCS: 36415; 74177; 80048; 80076; 81001; 81003; 83735; 85025; 85610; 87086; 87088; 87186; 96365; 99284; J0696; Q9967

== ENCOUNTER 2023-08-24 03:10 | Emergency (ER) | payer MEDICARE, MEDICAID, SELFPAY ==
--- NOTE | ~2023-08-24 | XR_ITS ---
EXAMINATION: XR CHEST CLINICAL INFORMATION: Dyspnea COMPARISON: 06/27/2023 TECHNIQUE: Frontal view of the chest was obtained. FINDINGS: Lung volumes are symmetric. No focal consolidation is seen. There is suggestion of trace atelectasis at the left lung base. No evidence of pneumothorax, pleural effusion, or pulmonary edema. Cardiac size is within normal limits. Calcification is present at the aortic arch. No acute osseous findings are seen. XR/XR chest 1V IMPRESSION: Suggestion of trace left basilar atelectasis without additional acute findings.
[2023-08-24 03:20] VITALS: BP 143/74; BP 98/47; PULSE 80; RESP 22; TEMP 37.1; O2SAT 100; O2SAT 93; BMI 39.5
--- NOTE | 2023-08-24 03:26 | ECG_ITS ---
Test Reason : SOB Blood Pressure : / mmHG Vent. Rate : 076 BPM Atrial Rate : 076 BPM P-R Int : 150 ms QRS Dur : 094 ms QT Int : 420 ms P-R-T Axes : 042 -14 035 degrees QTc Int : 472 ms Normal sinus rhythm Normal ECG When compared with ECG of 28-JUN-2023 00:25, Heart rate has decreased Referred By: Jo-Ann Banegas Electronically Signed By:MARTIN LAW MD
--- NOTE | 2023-08-24 03:28 | ED.SOB ---
HPI - SOB/Dyspnea General Chief Complaint: Back Pain/Injury Stated Complaint: back pain Time Seen by Provider: 08/24/23 03:14 Source: patient, EMS and old records reviewed Mode of arrival: EMS Limitations: no limitations History of Present Illness HPI Narrative: 77 yo female with PMH of COPD, dCHF, DM, seizures, not on blood thinners, here with c/o back pain up and down the whole back in a spasm then about 1 hour prior to arrival her chest became sore and she couldn't breathe - she was given oxycodone and muscle relaxer. EMS found her 85% on RA gave her neb and O2 sat up > 90%. The patient states she wears O2 PRN. She states her back is feeling better, no b/b incontinence no saddle anesthsia denies trauma. MD elicited complaint: asthma attack (back pain) Pertinent past history: asthma and congestive heart failure Onset (ago): hour(s) (2) Context: other Timing: improved Severity: moderate Exacerbating factors: coughing and deep breaths Relieving factors: bronchodilators Known history of: asthma Associated symptoms: other (has chest and back pain) Treatment prior to arrival: bronchodilator Related Data Home Medications Medication Instructions Recorded Confirmed acamprosate 333 mg tablet,delayed 333 mg PO TID 06/28/23 06/28/23 release albuterol sulfate 90 mcg/actuation 2 puff inhalation BID 06/28/23 06/28/23 aerosol inhaler (ProAir HFA) alprazolam 0.25 mg tablet (Xanax) 0.25 mg PO BID PRN Anxiety 06/28/23 06/28/23 bisacodyl 10 mg rectal suppository 10 mg GA DAILY PRN Constipation 06/28/23 06/28/23 bisacodyl 5 mg tablet,delayed 30 mg PO BEDTIME 06/28/23 06/28/23 release (Dulcolax (bisacodyl)) cetirizine 10 mg tablet 10 mg PO DAILY 06/28/23 06/28/23 dextran 70-hypromellose eye drops 1 drp ophthalmic (eye) TID 06/28/23 06/28/23 in a dropperette (Artificial Tears (PF) drops in a dropperette) diclofenac sodium 1 % topical gel 4 g topical QID PRN Pain 06/28/23 06/28/23 escitalopram oxalate 20 mg tablet 20 mg PO DAILY 06/28/23 06/28/23 fluticasone fur. 200 mcg-umeclid 1 inh inhalation DAILY 06/28/23 06/28/23 62.5 mcg-vilant 25 mcg inhalat.powder (Trelegy Ellipta) fluticasone propionate 50 1 spray intranasal BID 06/28/23 06/28/23 mcg/actuation nasal spray,suspension (Flonase Allergy Relief) folic acid 1 mg tablet 1 mg PO DAILY 06/28/23 06/28/23 furosemide 20 mg tablet 60 mg PO DAILY 06/28/23 06/28/23 gabapentin 300 mg capsule 300 mg PO TID 06/28/23 06/28/23 ipratropium 0.5 mg-albuterol 3 mg 3 ml inhalation Q8H PRN Shortness 06/28/23 06/28/23 (2.5 mg base)/3 mL nebulization Of Breath Or Wheezing soln lactulose 10 gram/15 mL oral 30 ml PO Q2D@0900,1500,2100 06/28/23 06/28/23 solution levetiracetam 500 mg tablet 500 mg PO BID 06/28/23 06/28/23 (Keppra) lidocaine 5 % topical patch 1 patch topical DAILY 06/28/23 06/28/23 magnesium hydroxide 400 mg/5 mL 30 ml PO DAILY PRN Constipation 06/28/23 06/28/23 oral suspension (Milk of Magnesia) methyl salicylate 15 %-menthol 10 1 appl topical DAILY PRN neck pain 06/28/23 06/28/23 % topical cream (Muscle Rub) metoprolol tartrate 25 mg tablet 25 mg PO DAILY 06/28/23 06/28/23 multivitamin 1 tab PO DAILY 06/28/23 06/28/23 naloxone 4 mg/actuation nasal 4 mg intranasal Q3M PRN Opioid 06/28/23 06/28/23 spray (Narcan) Overdose nystatin 100,000 unit/gram topical 1 appl topical BID 06/28/23 06/28/23 powder oxycodone 5 mg tablet 5 mg PO Q4H PRN Moderate Pain 06/28/23 06/28/23 (Scale Score 5-6) pantoprazole 40 mg tablet,delayed 40 mg PO DAILY@0630 06/28/23 06/28/23 release sodium phosphates 19 gram-7 118 ml [place] DAILY PRN Constipation 06/28/23 06/28/23 gram/118 mL enema (Fleet Enema) thiamine HCl (vitamin B1) 100 mg 100 mg PO DAILY 06/28/23 06/28/23 tablet tizanidine 2 mg tablet 2 mg PO Q8H PRN Muscle Spasm 06/28/23 06/28/23 trazodone 50 mg tablet 50 mg PO BEDTIME 06/28/23 06/28/23 Previous Rx's Medication Instructions Recorded benzonatate 100 mg capsule 200 mg (2 x 100 mg) PO TID #30 caps 07/01/23 cefuroxime axetil 500 mg tablet 500 mg PO BID #10 tabs 07/01/23 doxycycline monohydrate 100 mg 100 mg PO BID #10 caps 07/01/23 capsule guaifenesin 600 mg tablet, 600 mg PO BID #20 tabs 07/01/23 extended release 12 hr (Mucinex) nicotine 14 mg/24 hr daily 1 patch transdermal DAILY #28 ea 07/01/23 transdermal patch prednisone 10 mg tablet See Taper PO DIRECTED #30 tabs 07/01/23 cefuroxime axetil 250 mg tablet 250 mg PO BID 7 days #14 tabs 07/12/23 Allergies Allergy/AdvReac Type Severity Reaction Status Date / Time acetaminophen Allergy Unknown Unknown Verified 06/27/23 22:57 Tuberculin AdvReac Unknown Unknown Uncoded 06/27/23 22:57 Review of Systems Review of Systems: Constitutional : No Weight loss, No Fever, No Chills, ENT/Mouth : No Hearing loss, No Ear Pain, No Nasal Congestion, No Sinus Pain, No Hoarseness, No sore throat, No Rhinorrhea, No Swallowing Difficulty Cardiovascular : pos Chest Pain, No SOB Respiratory : No Cough, No Dyspnea, pos wheezing Gastrointestinal : No Nausea, No Vomiting, No Diarrhea, No abdominal Pain, No Hematochezia, No Melena Genitourinary : No Dysuria, No Urinary Frequency, No Hematuria, No Urinary Incontinence, Musculoskeletal : positive back pain Skin : No Skin Lesions, No rash Neuro : No Weakness, No Numbness, No Paresthesias, no loss of bowel or bladder incontinence, no saddle anesthesia All other systems reviewed and are negative [facility] Past Medical History Attestation statement: The following information was validated with the patient. Source: old records reviewed Medical History Hepatitis C Splenomegaly Cirrhosis Type 2 diabetes mellitus Morbid obesity CHF (congestive heart failure) Social History Social History Household Members: None Housing: [facility] Do you presently have visiting nurse or other home services: No Alcohol intake: former Patient Tobacco Use Status: Current everyday Tobacco user Tobacco use type: Cigarette Cigarettes Per Day: 5 Advance Directives: Yes Advance Directives on File: Yes Advance Directives Date on File: 06/29/23 service: No Physical Exam Vital Signs: Vital Signs: Last Vital Signs Temp 98.8 F 08/24/23 03:20 Pulse 75 08/24/23 05:45 Resp 19 08/24/23 05:45 BP 143/86 H 08/24/23 05:45 Pulse Ox 93 08/24/23 05:45 O2 Del Method Nasal Cannula 08/24/23 05:45 O2 Flow Rate 2 08/24/23 05:45 Oxygen Flow Rate 2 08/24/23 03:20 BMI result Body Mass Index 39.5 Appearance: somnolent but easily woken Oriented X3. No acute distress. Eyes: Pupils equal, round and reactive to light. ENT: Pharynx normal. Neck: Normal inspection. Neck supple. CVS: Normal heart rate and rhythm. Pulses normal. Respiratory: No respiratory distress. Breath sounds diminshed throughout with wheezes noted Abdomen: Soft and nontender. Skin: Skin warm and dry. Normal skin color. Normal skin turgor. Extremities: 1+ pitting bilateral lower extremity edema. No calf ttp Neuro: Oriented X 3. No motor deficit. No sensory deficit. Course Course Course Narrative: negative ddimer by age adjusted level Reevaluation(s) Reevaluation #1: improved overall I suspect that this was all related to the medications. Reevaluation #2: feels better VS stable, negative work up stable for DC Medications Administered Discontinued Medications Generic Name Dose Route Start Last Admin Trade Name Freq PRN Reason Stop Dose Admin Albuterol Sulfate 2.5 mg/ 5 mg 08/24/23 03:46 08/24/23 03:52 Albuterol Sulfate 2.5 mg INHALE 08/24/23 03:47 5 mg ONCE ONE Administration Methylprednisolone Sodium Succinate 60 mg 08/24/23 03:25 08/24/23 03:46 Methylprednisolone Sod Succ 125 Mg/2 Ml Vial IVPUSH 08/24/23 03:26 60 mg ONCE ONE Administration Potassium Chloride 40 meq 08/24/23 04:03 08/24/23 04:16 Potassium Chloride Packet 20 Meq Packet PO 08/24/23 04:04 40 meq ONCE ONE Administration Medical Decision Making Medical Decision Making [facility] Narrative: 77 yo female with PMH of COPD, dCHF, DM, seizures, not on blood thinners initially c/o diffuse back pain was given oxycodone and flexeril by SNF has no CE symptoms denies fever or urinary symptoms - 1 hour [employer] developed dyspne and wheezing with chest pain at this time EMS found her 85% on RA - given neb with some improvement. Will give steroids, CXR, ddimer, troponin x 2, basic labs, and I suspect her breathing and issues were precipitated in the combination of medications in someone with her chronic respiratory disease Differential Diagnosis Differential Diagnoses: The differential diagnosis associated with the presentation includes asthma, medication reaction, back strain Admission/Observation Consideration of admission/observation: Escalation of care including admission/observation considered feels better, improved labs negative CXR negative stable for DC Lab Data [facility] Lab Attestation statement: I reviewed the patient's lab results. 08/24/23 03:39 08/24/23 03:39 Labs: Lab Results 08/24/23 08/24/23 08/24/23 Range/Units 03:39 03:44 05:37 WBC 2.3 L (4.8-10.8) X10*3/uL RBC 4.07 L (4.20-5.50) X10*6/uL Hgb 11.1 L (12.0-16.0) g/dl Hct 36.4 L (37.0-47.0) % MCV 89.4 (80.0-98.0) fL MCH 27.3 (27.0-33.0) pg MCHC 30.5 L (31.0-35.0) g/dl RDW 16.2 H (11.0-16.0) % Plt Count 38 L D (160-400) X10*3/uL MPV 10.8 (9.4-12.3) fL Immature Gran % (Auto) 1.3 H (0.0-0.4) % Neut % (Auto) 66.3 (45-73) % Lymph % (Auto) 15.1 L (20-40) % [place] % (Auto) 17.3 H (2-11) % Eos % (Auto) 0.0 (0-4) % Baso % (Auto) 0.0 (0-2) % Lymph # (Auto) 0.3 L (1.2-4.9) X10*3/uL [place] # (Auto) 0.4 (0.1-1.2) X10*3/uL Eos # (Auto) 0.0 (0.0-0.4) X10*3/uL Baso # (Auto) 0.0 (0.0-0.2) X10*3/uL Abs Immat Gran (auto) 0.03 (0.00-0.03) X10*3/uL Absolute Neuts (auto) 1.5 L (2.0-8.3) x10*3/uL Absolute Nucleated RBC 0.000 (0.0-0.012) X10*3/uL Nucleated RBC % (auto) 0.0 (0.0-0.2) /100WBC Smear Tech's Comments VERIFIED D-Dimer High Sensitivty 255 NG/ML VBG pH 7.37 (7.32-7.43) VBG pCO2 72 mmHg VBG pO2 49 mmHg VBG HCO3 42 H (22-26) mmol/L VBG O2 Saturation 73.0 % VBG Base Excess 14.2 mmol/L Sodium 143 (135-145) mmol/L Potassium 3.0 L D (3.3-5.1) mmol/L Chloride 100 (96-108) mmol/L Carbon Dioxide 34 H (22-29) mmol/L Anion Gap 12 (12-20) BUN 14 (9-16) mg/dL Creatinine 1.08 (0.5-1.4) mg/dL Estim Creat Clear Calc 48.5 Estimated GFR 49 Random Glucose 123 H (60-115) mg/dL Lactic Acid 1.0 (0.5-2.0) mmol/L Calcium 8.6 (8.4-10.2) mg/dL Magnesium 1.8 (1.6-2.6) mg/dL Total Bilirubin 0.9 (0.0-1.0) mg/dL Direct Bilirubin 0.5 (0.0-0.5) mg/dL AST 25 (5-31) U/L ALT 7 (0-31) U/L Alkaline Phosphatase 70 (39-117) U/L Troponin I High Sens 12.0 12.4 (<3.5-17.0) ng/L B-Natriuretic Peptide 242 H (<100) pg/mL Total Protein 5.6 L (6.5-8.0) g/dL Albumin 2.9 L (3.5-5.0) g/dL Lipase 16 (8-78) U/L Urine Color Urine Appearance Urine pH (5.0-9.0) Ur Specific [place] (1.005-1.025) Urine Protein (Neg-Trace) mg/dL Urine Glucose (UA) (Negative) mg/dL Urine Ketones (Negative) mg/dL Urine Blood (Negative) Urine Nitrite (Negative) Ur Leukocyte Esterase (Negative) COVID-19 (GEORGE) Negative (Negative) COVID-19 Clin Com See Note 08/24/23 Range/Units 05:54 WBC (4.8-10.8) X10*3/uL RBC (4.20-5.50) X10*6/uL Hgb (12.0-16.0) g/dl Hct (37.0-47.0) % MCV (80.0-98.0) fL MCH (27.0-33.0) pg MCHC (31.0-35.0) g/dl RDW (11.0-16.0) % Plt Count (160-400) X10*3/uL MPV (9.4-12.3) fL Immature Gran % (Auto) (0.0-0.4) % Neut % (Auto) (45-73) % Lymph % (Auto) (20-40) % [place] % (Auto) (2-11) % Eos % (Auto) (0-4) % Baso % (Auto) (0-2) % Lymph # (Auto) (1.2-4.9) X10*3/uL [place] # (Auto) (0.1-1.2) X10*3/uL Eos # (Auto) (0.0-0.4) X10*3/uL Baso # (Auto) (0.0-0.2) X10*3/uL Abs Immat Gran (auto) (0.00-0.03) X10*3/uL Absolute Neuts (auto) (2.0-8.3) x10*3/uL Absolute Nucleated RBC (0.0-0.012) X10*3/uL Nucleated RBC % (auto) (0.0-0.2) /100WBC Smear Tech's Comments D-Dimer High Sensitivty NG/ML VBG pH (7.32-7.43) VBG pCO2 mmHg VBG pO2 mmHg VBG HCO3 (22-26) mmol/L VBG O2 Saturation % VBG Base Excess mmol/L Sodium (135-145) mmol/L Potassium (3.3-5.1) mmol/L Chloride (96-108) mmol/L Carbon Dioxide (22-29) mmol/L Anion Gap (12-20) BUN (9-16) mg/dL Creatinine (0.5-1.4) mg/dL Estim Creat Clear Calc Estimated GFR Random Glucose (60-115) mg/dL Lactic Acid (0.5-2.0) mmol/L Calcium (8.4-10.2) mg/dL Magnesium (1.6-2.6) mg/dL Total Bilirubin (0.0-1.0) mg/dL Direct Bilirubin (0.0-0.5) mg/dL AST (5-31) U/L ALT (0-31) U/L Alkaline Phosphatase (39-117) U/L Troponin I High Sens (<3.5-17.0) ng/L B-Natriuretic Peptide (<100) pg/mL Total Protein (6.5-8.0) g/dL Albumin (3.5-5.0) g/dL Lipase (8-78) U/L Urine Color Dark Yellow Urine Appearance Clear Urine pH 6.0 (5.0-9.0) Ur Specific [place] 1.020 (1.005-1.025) Urine Protein Trace (Neg-Trace) mg/dL Urine Glucose (UA) Negative (Negative) mg/dL Urine Ketones Negative (Negative) mg/dL Urine Blood Negative (Negative) Urine Nitrite Negative (Negative) Ur Leukocyte Esterase Negative (Negative) COVID-19 (GEORGE) (Negative) COVID-19 Clin Com Independent Interpretation I performed an independent interpretation of an: EKG and Plain X-Ray (normal ) Interpretation: Rate: 76 Rhythm: NSR [place]: left Normal P waves. Normal JANE. Normal QRS complex. ST T wave : normal no Sanam qTC: normal prior studies: no acute ischemia The study has been interpreted contemporaneously by me. . Radiology Impression Discussion of test interpretation with radiology: I have reviewed the radiologist's reading. Independent Historian Clinical information obtained from an independent historian. History obtained from or confirmed by: EMS External Record Review External record reviewed: Inpatient record Prescription Management I considered prescription management with: Other Discharge Plan Discharge Clinical Impression: Acute hypokalemia, Back muscle spasm Asthma Qualifiers: Asthma severity: moderate Asthma persistence: persistent Asthma complication type: with acute exacerbation Qualified Code(s): J45.41 - Moderate persistent asthma with (acute) exacerbation Patient Disposition: Home, Self-Care Instructions: Asthma (ED), Hypokalemia (ED), Back Pain (ED) Additional Instructions: given nebs, steroid and had troponin, ddimer, urine and covid swab here. please continue to monitor. I would be careful with sedating medications you run the risk of cause over sedation with her. use as needed O2. her WBC count was slightly low at 2.3 please monitor, platelets 38 - please check CBC in 2 days continue prednisone 40mg for 4 more days. Prescriptions: No Action multivitamin Tablet 1 tab PO DAILY trazodone 50 mg Tablet 50 mg PO BEDTIME cetirizine 10 mg Tablet 10 mg PO DAILY levetiracetam [Keppra] 500 mg Tablet 500 mg PO BID thiamine HCl (vitamin B1) 100 mg Tablet 100 mg PO DAILY alprazolam [Xanax] 0.25 mg Tablet 0.25 mg PO BID PRN (Reason: Anxiety) magnesium hydroxide [Milk of Magnesia] 400 mg/5 mL Suspension 30 ml PO DAILY PRN (Reason: Constipation) bisacodyl 10 mg Suppository 10 mg GA DAILY PRN (Reason: Constipation) pantoprazole 40 mg Tablet,Delayed Release (Dr/Ec) 40 mg PO DAILY@0630 lidocaine 5 % Adhesive Patch,Medicated 1 patch TOPICAL DAILY Rx Instructions: apply to hips topically; remove after 12 hrs Fleet Enema 19-7 gram/118 mL Enema 118 ml GA DAILY PRN (Reason: Constipation) gabapentin 300 mg Capsule 300 mg PO TID folic acid 1 mg Tablet 1 mg PO DAILY bisacodyl [Dulcolax (bisacodyl)] 5 mg Tablet,Delayed Release (Dr/Ec) 30 mg PO BEDTIME furosemide 20 mg Tablet 60 mg PO DAILY nystatin 100,000 unit/gram Powder 1 appl TOPICAL BID Rx Instructions: apply to [place] albuterol sulfate [ProAir HFA] 90 mcg/actuation Hfa Aerosol Inhaler 2 puff INHALATION BID fluticasone propionate [Flonase Allergy Relief] 50 mcg/actuation [place],Suspension 1 spray INTRANASAL BID Rx Instructions: administer into each nostril oxycodone 5 mg Tablet 5 mg PO Q4H PRN (Reason: Moderate Pain (Scale Score 5-6)) escitalopram oxalate 20 mg Tablet 20 mg PO DAILY Artificial Tears (PF) Dropperette 1 drp OPHTHALMIC (EYE) TID Rx Instructions: 1 drop into both eyes metoprolol tartrate 25 mg Tablet 25 mg PO DAILY acamprosate 333 mg Tablet,Delayed Release (Dr/Ec) 333 mg PO TID lactulose 10 gram/15 mL Solution 30 ml PO Q2D@0900,1500,2100 Muscle Rub 15-10 % Cream 1 appl TOPICAL DAILY PRN (Reason: neck pain) Rx Instructions: apply to neck diclofenac sodium 1 % Gel 4 g TOPICAL QID PRN (Reason: Pain) Rx Instructions: apply to hips naloxone [Narcan] 4 mg/actuation [place],Non-Aerosol 4 mg INTRANASAL Q3M PRN (Reason: Opioid Overdose) Rx Instructions: spray 1 dose into ONE nostril; alternate nostrils w each dose until help arrives Trelegy Ellipta 200-62.5-25 mcg Blister With Device 1 inh INHALATION DAILY ipratropium-albuterol 0.5 mg-3 mg(2.5 mg base)/3 mL Solution For Nebulization 3 ml INHALATION Q8H PRN (Reason: Shortness Of Breath Or Wheezing) tizanidine 2 mg Tablet 2 mg PO Q8H PRN (Reason: Muscle Spasm) benzonatate 100 mg Capsule 200 mg PO TID Qty: 30 0RF guaifenesin [Mucinex] 600 mg Tablet Extended Release 12hr 600 mg PO BID Qty: 20 0RF doxycycline monohydrate 100 mg capsule 100 mg PO BID Qty: 10 0RF cefuroxime axetil 500 mg tablet 500 mg PO BID Qty: 10 0RF prednisone 10 mg tablet See Taper PO DIRECTED Qty: 30 0RF Taper: Prednisone 40 mg daily for 3 Days and 0 Hour 30 mg daily for 3 Days and 0 Hour 20 mg daily for 3 Days and 0 Hour 10 mg daily for 3 Days and 0 Hour Rx Instructions: see taper instructions nicotine 14 mg/24 hr patch 24 hour 1 patch transdermal DAILY Qty: 28 0RF cefuroxime axetil 250 mg tablet 250 mg PO BID 7 Days Qty: 14 0RF
[2023-08-24 03:45] LABS: Hemoglobin 11.1 g/dl (12.0-16.0); Lymphocytes Absolute Auto 0.3 X10*3/uL (1.2-4.9); PLT CLUMP 1; Red Cell Distribution Width 16.2 % (11.0-16.0); SCAN SMEAR FLAG 1
[2023-08-24] MEDS: methylPREDNISolone Sod Succ 125 MG/2 ML VIAL 60 MG IVPUSH (03:46)
[2023-08-24 03:47] LABS: Hematocrit 36.4 % (37.0-47.0); Imm Gran Abs Auto 0.03 X10*3/uL (0.00-0.03); Imm Gran Pct Auto 1.3 % (0.0-0.4); Lymphocytes Percent Auto 15.1 % (20-40); MANUAL DIFF FLAG SCAN; Mean Corpuscular HGB Conc 30.5 g/dl (31.0-35.0); Mean Corpuscular Hemoglobin 27.3 pg (27.0-33.0); Mean Corpuscular Volume 89.4 fL (80.0-98.0); Mean Platelet Volume 10.8 fL (9.4-12.3); Monocytes Absolute Auto 0.4 X10*3/uL (0.1-1.2); Monocytes Percent Auto 17.3 % (2-11); Neutrophils Absolute Auto 1.5 x10*3/uL (2.0-8.3); Neutrophils Percent Auto 66.3 % (45-73); Red Blood Count 4.07 X10*6/uL (4.20-5.50)
[2023-08-24 03:49] LABS: White Blood Count 2.3 X10*3/uL (4.8-10.8)
[2023-08-24 03:50] LABS: Venous Blood Gas Refer to POC result
[2023-08-24 03:50] LABS: Platelet Count 38 X10*3/uL (160-400)
[2023-08-24 03:51] LABS: VBG Base Excess 14.2 mmol/L; VBG HCO3 42 mmol/L (22-26); VBG pCO2 72 mmHg; VBG pH 7.37 (7.32-7.43); VBG pO2 49 mmHg
[2023-08-24 03:52] VITALS: PULSE 74; RESP 18; O2SAT 94
[2023-08-24] MEDS: Albuterol Sulfate 2.5 MG, Albuterol Sulfate (0.083%) 2.5 MG 5 MG INHALE (03:52)
--- NOTE | 2023-08-24 03:52 | MHC.EDTECH ---
This tech assumed care of this pt upon arrival. pt changed into a hospital gown red fall risk wristband and socks put on pt. EKG completed and handed to provider. bloodwork sent to lab for processing. pt placed on budget assistant and placed on 2L O2 nasal canula
[2023-08-24 03:53] LABS: D Dimer High Sensitivity 255 NG/ML
[2023-08-24 03:59] LABS: Alanine Aminotransferase 7 U/L (0-31); Albumin Level 2.9 g/dL (3.5-5.0); Alkaline Phosphatase 70 U/L (39-117); Anion Gap 12 (12-20); Aspartate Amino Transferase 25 U/L (5-31); Bilirubin Direct 0.5 mg/dL (0.0-0.5); Bilirubin Total 0.9 mg/dL (0.0-1.0); Blood Urea Nitrogen 14 mg/dL (9-16); COVID-19 Test Negative (Negative); Calcium 8.6 mg/dL (8.4-10.2); Carbon Dioxide 34 mmol/L (22-29); Chloride 100 mmol/L (96-108); Creatinine Clr Calc Pharmacy 48.5; Estimated Glomerular Filt Rate 49; Glucose Random 123 mg/dL (60-115); IDNOW Serial# 6674DD1D; Lipase 16 U/L (8-78); Magnesium 1.8 mg/dL (1.6-2.6); Sodium 143 mmol/L (135-145); Total Protein 5.6 g/dL (6.5-8.0)
[2023-08-24 04:05] LABS: B Type Natriuretic Peptide 242 pg/mL (<100)
[2023-08-24 04:08] LABS: SLIDE REVIEW VERIFIED
[2023-08-24] MEDS: Potassium Chloride Packet 20 MEQ PACKET 40 MEQ PO (04:16)
[2023-08-24 05:45] VITALS: BP 143/86; PULSE 75; RESP 19; O2SAT 93
[2023-08-24 06:00] LABS: Appearance Urine Clear; Color Urine Dark Yellow; Glucose Urine UA Negative (Negative); Leukocyte Esterase Urine Negative (Negative); Nitrite Urine Negative (Negative); Urine Blood Negative (Negative); Urine Ketones Negative (Negative); Urine Protein Trace mg/dL (Neg-Trace)
[2023-08-24 06:01] LABS: Troponin-I High Sensitivity 12.4 ng/L (<3.5-17.0)
== END 2023-08-24 09:10 | disposition home or self-care (01) ==
PROVIDERS: Emergency Provider Emergency Medicine; PCP Internal Medicine
DX: J45.41 Moderate persistent asthma with (acute) exacerbation (principal); E87.6 Hypokalemia; M54.50 Low back pain, unspecified; R07.89 Other chest pain; M62.830 Muscle spasm of back; R05.9 Cough, unspecified; R06.02 Shortness of breath; F17.210 Nicotine dependence, cigarettes, uncomplicated; Z11.52 Encounter for screening for COVID-19; Z20.822 Contact with and (suspected) exposure to COVID-19; Z79.899 Other long term (current) drug therapy; Z71.6 Tobacco abuse counseling
CPT/HCPCS: 36415; 71045; 80048; 80076; 81003; 82803; 83605; 83690; 83735; 83880; 84484; 85025; 85379; 87635; 93005; 94640; 96374; 99284; 99285; J2930

== ENCOUNTER 2023-08-28 19:07 | Inpatient (IN) | payer MEDICARE, MEDICAID, SELFPAY ==
--- NOTE | ~2023-08-28 | XR_ITS ---
EXAMINATION: XR CHEST CLINICAL INFORMATION: Shortness of breath. COMPARISON: Chest radiograph 08/24/2023. TECHNIQUE: AP view of the chest was obtained. FINDINGS: Unchanged prominence of the cardiomediastinal silhouette. Stable central bronchial wall thickening as well as mild bibasilar segmental atelectasis. No new focal airspace density. No pleural effusion or pneumothorax. No overt pulmonary edema. No acute osseous findings. XR/XR chest 1V IMPRESSION: Unchanged central bronchial wall thickening that could be seen in the context of small airways disease.
--- NOTE | 2023-08-28 19:14 | ED_ITS ---
HPI - SOB/Dyspnea General Chief Complaint: Dyspnea Stated Complaint: SOB Time Seen by Provider: 08/28/23 19:13 Source: patient Mode of arrival: EMS Limitations: no limitations History of Present Illness HPI Narrative: Patient 77 years old with history of COPD chronic smoker diastolic heart failure diabetes seizure with history of hypoxic hypercapnic respiratory failure requiring BiPAP admitted last in 06/29/23 in ICU comes in for increased shortness of breath since 09:00 today was on 3 L when EMS arrived saturating 80s received 2 nebulizing treatment and 125 mg of Solu-Medrol felt better saturating 98% on 4 L is still wheezing a lot Related Data Home Medications Medication Instructions Recorded Confirmed acamprosate 333 mg tablet,delayed 333 mg PO TID 06/28/23 08/28/23 release albuterol sulfate 90 mcg/actuation 2 puff inhalation BID 06/28/23 08/28/23 aerosol inhaler (ProAir HFA) alprazolam 0.25 mg tablet (Xanax) 0.25 mg PO BID PRN Anxiety 06/28/23 08/28/23 bisacodyl 10 mg rectal suppository 10 mg NE DAILY PRN Constipation 06/28/23 08/28/23 bisacodyl 5 mg tablet,delayed 30 mg PO BEDTIME 06/28/23 08/28/23 release (Dulcolax (bisacodyl)) cetirizine 10 mg tablet 10 mg PO DAILY 06/28/23 08/28/23 dextran 70-hypromellose eye drops 1 drp ophthalmic (eye) TID 06/28/23 08/28/23 in a dropperette (Artificial Tears (PF) drops in a dropperette) diclofenac sodium 1 % topical gel 4 g topical QID PRN Pain 06/28/23 08/28/23 escitalopram oxalate 20 mg tablet 20 mg PO DAILY 06/28/23 08/28/23 fluticasone fur. 200 mcg-umeclid 1 inh inhalation DAILY 06/28/23 08/28/23 62.5 mcg-vilant 25 mcg inhalat.powder (Trelegy Ellipta) fluticasone propionate 50 1 spray intranasal BID 06/28/23 08/28/23 mcg/actuation nasal spray,suspension (Flonase Allergy Relief) folic acid 1 mg tablet 1 mg PO DAILY 06/28/23 08/28/23 furosemide 20 mg tablet 60 mg PO DAILY 06/28/23 08/28/23 gabapentin 300 mg capsule 300 mg PO TID 06/28/23 08/28/23 ipratropium 0.5 mg-albuterol 3 mg 3 ml inhalation Q8H PRN Shortness 06/28/23 08/28/23 (2.5 mg base)/3 mL nebulization Of Breath Or Wheezing soln lactulose 10 gram/15 mL oral 30 ml PO Q2D@0900,1500,2100 06/28/23 08/28/23 solution levetiracetam 500 mg tablet 500 mg PO BID 06/28/23 08/28/23 (Keppra) lidocaine 5 % topical patch 1 patch topical DAILY 06/28/23 08/28/23 magnesium hydroxide 400 mg/5 mL 30 ml PO DAILY PRN Constipation 06/28/23 08/28/23 oral suspension (Milk of Magnesia) methyl salicylate 15 %-menthol 10 1 appl topical DAILY PRN neck pain 06/28/23 08/28/23 % topical cream (Muscle Rub) metoprolol tartrate 25 mg tablet 25 mg PO DAILY 06/28/23 08/28/23 multivitamin 1 tab PO DAILY 06/28/23 08/28/23 naloxone 4 mg/actuation nasal 4 mg intranasal Q3M PRN Opioid 06/28/23 08/28/23 spray (Narcan) Overdose nystatin 100,000 unit/gram topical 1 appl topical BID 06/28/23 08/28/23 powder oxycodone 5 mg tablet 5 mg PO Q4H PRN Moderate Pain 06/28/23 08/28/23 (Scale Score 5-6) pantoprazole 40 mg tablet,delayed 40 mg PO DAILY@0630 06/28/23 08/28/23 release sodium phosphates 19 gram-7 118 ml NE DAILY PRN Constipation 06/28/23 08/28/23 gram/118 mL enema (Fleet Enema) thiamine HCl (vitamin B1) 100 mg 100 mg PO DAILY 06/28/23 08/28/23 tablet tizanidine 2 mg tablet 2 mg PO Q8H PRN Muscle Spasm 06/28/23 08/28/23 trazodone 50 mg tablet 50 mg PO BEDTIME 06/28/23 08/28/23 Previous Rx's Medication Instructions Recorded benzonatate 100 mg capsule 200 mg (2 x 100 mg) PO TID #30 caps 07/01/23 guaifenesin 600 mg tablet, 600 mg PO BID #20 tabs 07/01/23 extended release 12 hr (Mucinex) prednisone 10 mg tablet See Taper PO DIRECTED #30 tabs 07/01/23 Allergies Allergy/AdvReac Type Severity Reaction Status Date / Time acetaminophen Allergy Unknown Unknown Verified 06/27/23 22:57 Tuberculin AdvReac Unknown Unknown Uncoded 06/27/23 22:57 Review of Systems 2 Review of Systems: Yes all other systems are reviewed and are negative [facility] Past Medical History Medical History Hepatitis C Splenomegaly Cirrhosis Type 2 diabetes mellitus Morbid obesity CHF (congestive heart failure) Social History Social History Household Members: None Housing: Intermediate Do you presently have visiting nurse or other home services: No Alcohol intake: former Patient Tobacco Use Status: Current everyday Tobacco user Tobacco use type: Cigarette Cigarettes Per Day: 5 Advance Directives Date on File: 06/29/23 service: No Physical Exam 2 Vital Signs: Vital Signs: Last Vital Signs Temp 98.0 F 08/29/23 01:11 Pulse 99 08/29/23 01:11 Resp 15 08/29/23 01:11 BP 139/75 08/29/23 01:11 Pulse Ox 96 08/29/23 01:11 O2 Del Method Nasal Cannula 08/29/23 01:11 O2 Flow Rate 4 08/29/23 01:11 Oxygen Flow Rate 4 08/28/23 19:22 BMI result Body Mass Index 40.7 Appearance: Alert. Oriented X3. Moderate respiratory distress. Eyes: PERRLA, no pallor or icterus ENT: Pharynx normal. Oral Mucosa moist Neck: Normal inspection. Neck supple. CVS: Regular rate and rhythm tachycardia++ . Pulses normal. Respiratory: mod respiratory distress. Equal air entry bilateral, bilateral wheezing and rhonchi more of Abdomen: Soft and nontender. Bowel sounds are present, no mass palpable, no CVA tenderness Skin: Skin warm and dry. Normal skin color. Normal skin turgor. Extremities: No lower extremity edema. No calf tenderness Neuro: Oriented X 3. No motor deficit. No sensory deficit.No cerebellar signs , cranial nerves II-XII intact Medications Administered Generic Name Dose Route Start Last Admin Trade Name Lidia PRN Reason Stop Dose Admin Acamprosate 333 mg 08/28/23 22:30 08/28/23 23:33 Acamprosate Calcium 333 Mg Tablet.Dr PO 333 mg TID SCOUT Administration Benzonatate 200 mg 08/28/23 22:30 08/28/23 23:33 Benzonatate 100 Mg Capsule PO 200 mg TID SCOUT Administration Enoxaparin Sodium 40 mg 08/28/23 21:00 08/28/23 21:41 Enoxaparin Sodium 40 Mg/0.4 Ml Syringe SUBCUT 40 mg Q24H SCOUT Administration Gabapentin 300 mg 08/28/23 22:30 08/28/23 23:33 Gabapentin 300 Mg Capsule PO 300 mg TID SCOUT Administration Azithromycin 500 mg/ Sodium 250 mls @ 125 mls/hr 08/28/23 22:15 08/28/23 23:43 Chloride IV 08/31/23 22:14 125 mls/hr Q24H SCOUT Administration Oxycodone HCl 5 mg 08/28/23 21:32 08/28/23 21:40 Oxycodone Hcl Immed Release 5 Mg Tablet PO 5 mg Q4H PRN Administration Pain, Moderate(Pain Scale 4-6) Sodium Chloride 3 ml 08/29/23 00:00 08/28/23 23:44 0.9 % Sodium Chloride Flush 3 Ml Syringe IVFLUSH 3 ml QSHIFT [facility] Administration Discontinued Medications Generic Name Dose Route Start Last Admin Trade Name Lidia PRN Reason Stop Dose Admin Albuterol Sulfate 2.5 mg/ 5 mg 08/28/23 19:40 08/28/23 19:43 Albuterol Sulfate 2.5 mg INHALE 08/28/23 19:41 5 mg ONCE ONE Administration Alprazolam 0.25 mg 08/28/23 20:26 08/28/23 21:40 Alprazolam 0.25 Mg Tablet PO 08/28/23 20:27 0.25 mg ONCE ONE Administration Guaifenesin/Codeine Phosphate 10 ml 08/28/23 19:49 08/28/23 19:58 Guaifen/Codeine Sf 200/20/10ml 10 Ml Liquid PO 08/28/23 19:50 10 ml ONCE ONE Administration Magnesium Sulfate 2 gm in 50 mls @ 150 mls/hr 08/28/23 19:48 08/28/23 20:49 Magnesium Sulfate/H2o IV 08/28/23 20:07 Infused ONCE ONE Infusion Insulin Glargine 20 unit 08/28/23 22:24 08/28/23 23:33 Insulin Glargine,Hum.Rec.Anlog 100 Unit/Ml 10 Ml Vial SUBCUT 08/28/23 22:25 20 unit ONCE ONE Administration Levetiracetam 500 mg 08/28/23 20:26 08/28/23 21:41 Levetiracetam 500 Mg Tablet PO 08/28/23 20:27 500 mg ONCE ONE Administration Methylprednisolone Sodium Succinate 40 mg 08/28/23 20:30 08/28/23 21:35 Methylprednisolone Sod Succ 40 Mg/Ml Vial IVPUSH Not Given Q12H SCOUT Trazodone HCl 50 mg 08/28/23 20:26 08/28/23 21:40 Trazodone Hcl 50 Mg Tablet PO 08/28/23 20:27 50 mg ONCE ONE Administration Medical Decision Making Medical Decision Making [facility] Narrative: Patient with increased shortness of breath is chronic lung disease with increased shortness of breath with chronic hypercarbic and hypoxic respiratory failure with frequent ED visits and admissions saturating 87% on 3 L nasal cannula which is supposed to be at home will admit patient for IV steroids DuoNeb treatment Differential Diagnosis Differential Diagnoses: The differential diagnosis associated with the presentation includes COPD exacerbation/chronic hypoxemia/chronic lung disease/pneumonia/pneumothorax/ CHF Admission/Observation Consideration of admission/observation: Escalation of care including admission/observation considered Consult Healthcare Provider Management of the patient was discussed with: Hospitalist Lab Data [facility] Lab Attestation statement: I reviewed the patient's lab results. 08/28/23 19:44 08/28/23 19:44 Labs: Lab Results 08/28/23 08/28/23 Range/Units 19:44 19:51 WBC 3.5 L (4.8-10.8) X10*3/uL RBC 4.64 (4.20-5.50) X10*6/uL Hgb 12.8 (12.0-16.0) g/dl Hct 42.1 (37.0-47.0) % MCV 90.7 (80.0-98.0) fL MCH 27.6 (27.0-33.0) pg MCHC 30.4 L (31.0-35.0) g/dl RDW 15.6 (11.0-16.0) % Plt Count 43 L (160-400) X10*3/uL MPV 12.3 (9.4-12.3) fL Immature Gran % (Auto) 0.3 (0.0-0.4) % Neut % (Auto) 79.1 H (45-73) % Lymph % (Auto) 14.1 L (20-40) % [place] % (Auto) 6.2 (2-11) % Eos % (Auto) 0.0 (0-4) % Baso % (Auto) 0.3 (0-2) % Lymph # (Auto) 0.5 L (1.2-4.9) X10*3/uL [place] # (Auto) 0.2 (0.1-1.2) X10*3/uL Eos # (Auto) 0.0 (0.0-0.4) X10*3/uL Baso # (Auto) 0.0 (0.0-0.2) X10*3/uL Abs Immat Gran (auto) 0.01 (0.00-0.03) X10*3/uL Absolute Neuts (auto) 2.8 (2.0-8.3) x10*3/uL Absolute Nucleated RBC 0.000 (0.0-0.012) X10*3/uL Nucleated RBC % (auto) 0.0 (0.0-0.2) /100WBC PT 11.6 (11.1-13.3) SEC INR 1.0 (0.9-1.1) VBG pH 7.34 (7.32-7.43) VBG pCO2 75 mmHg VBG pO2 62 mmHg VBG HCO3 41 H (22-26) mmol/L VBG O2 Saturation 85.0 % VBG Base Excess 12.3 mmol/L Sodium 143 (135-145) mmol/L Potassium 3.7 D (3.3-5.1) mmol/L Chloride 101 (96-108) mmol/L Carbon Dioxide 31 H (22-29) mmol/L Anion Gap 15 (12-20) BUN 12 (9-16) mg/dL Creatinine 1.09 (0.5-1.4) mg/dL Estim Creat Clear Calc 48.8 Estimated GFR 49 Random Glucose 335 H (60-115) mg/dL Calcium 9.1 (8.4-10.2) mg/dL Magnesium 2.0 (1.6-2.6) mg/dL Total Bilirubin 0.5 (0.0-1.0) mg/dL AST 28 (5-31) U/L ALT 10 (0-31) U/L Alkaline Phosphatase 78 (39-117) U/L Troponin I High Sens 7.3 (<3.5-17.0) ng/L B-Natriuretic Peptide 105 H (<100) pg/mL Total Protein 6.6 (6.5-8.0) g/dL Albumin 3.5 (3.5-5.0) g/dL COVID-19 (GEORGE) Negative (Negative) COVID-19 Clin Com See Note ABG Data Attestation ABG: I personally reviewed and interpreted this ABG as follows: Independent Interpretation I performed an independent interpretation of an: EKG Interpretation: Sinus tachycardia with heart rate 118 beats per minute Q-waves inferior leads no acute ST T wave changes, no acute ischemia Radiology Impression Discussion of test interpretation with radiology: I have reviewed the radiologist's reading. Radiologist Impression: [place] [id number] XRay Report Signed Patient: Sarai Mederos MR#: [id number] : 1945 Acct:[id number] Age/Sex: 77 / F ADM Date: 08/28/23 Loc: .ED Attending Dr: Ordering Physician: Martinez Thornton MD Date of Service: 08/28/23 Procedure(s): XR chest 1V Accession Number(s): [id number] cc: Martinez Thornton MD~ EXAMINATION: XR CHEST CLINICAL INFORMATION: Shortness of breath. COMPARISON: Chest radiograph 08/24/2023. TECHNIQUE: AP view of the chest was obtained. FINDINGS: Unchanged prominence of the cardiomediastinal silhouette. Stable central bronchial wall thickening as well as mild bibasilar segmental atelectasis. No new focal airspace density. No pleural effusion or pneumothorax. No overt pulmonary edema. No acute osseous findings. XR/XR chest 1V IMPRESSION: Unchanged central bronchial wall thickening that could be seen in the context of small airways disease. External Record Review External record reviewed: Inpatient record, Prior outpatient labs, Primary care record and Outside ED record Critical Care Time Critical Care Time Critical Care Time: Yes Total Critical Care Time: 40 Attestation: The patient was critically ill with a high probability of imminent or life threatening deterioration. I spent greater than 45 minutes of discontinuous time evaluating the patient,delivering critical care at the bedside, discussing and evaluating pertinent data with consultants. Critical care time does not include time spent performing separately billable procedures or teaching. Total time spent performing critical care was 40 minutes. Discharge Plan Discharge Clinical Impression: Acute on chronic respiratory failure with hypoxia and hypercapnia, Chronic lung disease Patient Disposition: Admitted As Inpatient
--- NOTE | 2023-08-28 19:17 | ECG_ITS ---
Test Reason : SOB Blood Pressure : / mmHG Vent. Rate : 118 BPM Atrial Rate : 118 BPM P-R Int : 146 ms QRS Dur : 080 ms QT Int : 326 ms P-R-T Axes : 057 -15 040 degrees QTc Int : 456 ms Sinus tachycardia Possible Left atrial enlargement Inferior infarct , age undetermined Abnormal ECG When compared with ECG of 24-AUG-2023 03:27, Vent. rate has increased BY 42 BPM Inferior infarct is now Present T wave amplitude has increased in Anterolateral leads Referred By: Martinez Thornton Electronically Signed By:MARTIN LAW MD
[2023-08-28 19:22] VITALS: BP 134/81; BP 179/105; PULSE 113; RESP 20; TEMP 37.2; O2SAT 94; O2SAT 98; BMI 40.7
[2023-08-28 19:29] VITALS: PULSE 118
[2023-08-28] MEDS: Albuterol Sulfate 2.5 MG, Albuterol Sulfate (0.083%) 2.5 MG 5 MG INHALE (19:43)
[2023-08-28 19:45] VITALS: PULSE 113; RESP 25; O2SAT 94
[2023-08-28 19:54] LABS: MANUAL DIFF FLAG NO
[2023-08-28 19:56] LABS: Basophils Percent Auto 0.3 % (0-2); Hematocrit 42.1 % (37.0-47.0); Hemoglobin 12.8 g/dl (12.0-16.0); Imm Gran Abs Auto 0.01 X10*3/uL (0.00-0.03); Imm Gran Pct Auto 0.3 % (0.0-0.4); Lymphocytes Absolute Auto 0.5 X10*3/uL (1.2-4.9); Lymphocytes Percent Auto 14.1 % (20-40); Mean Corpuscular HGB Conc 30.4 g/dl (31.0-35.0); Mean Corpuscular Hemoglobin 27.6 pg (27.0-33.0); Mean Corpuscular Volume 90.7 fL (80.0-98.0); Mean Platelet Volume 12.3 fL (9.4-12.3); Monocytes Absolute Auto 0.2 X10*3/uL (0.1-1.2); Monocytes Percent Auto 6.2 % (2-11); Neutrophils Absolute Auto 2.8 x10*3/uL (2.0-8.3); Neutrophils Percent Auto 79.1 % (45-73); Red Blood Count 4.64 X10*6/uL (4.20-5.50); Red Cell Distribution Width 15.6 % (11.0-16.0); White Blood Count 3.5 X10*3/uL (4.8-10.8)
[2023-08-28 19:56] LABS: VBG Base Excess 12.3 mmol/L; VBG HCO3 41 mmol/L (22-26); VBG pCO2 75 mmHg; VBG pH 7.34 (7.32-7.43); VBG pO2 62 mmHg
[2023-08-28] MEDS: Magnesium Sulfate/H2O 2 GM/50 ML PIGGYBACK IV (19:57)
[2023-08-28] MEDS: guaiFEN/Codeine SF 200/20/10ML 10 ML LIQUID PO (19:58)
[2023-08-28 20:00] LABS: Platelet Count 43 X10*3/uL (160-400)
[2023-08-28 20:01] LABS: Venous Blood Gas Refer to POC result
--- NOTE | 2023-08-28 20:01 | PC.NURSE ---
pt receiving breathing tx from respiratory at this time. mag infusing per mar. pt states feeling some relief with tx.
[2023-08-28 20:03] LABS: Prothrombin Time 11.6 SEC (11.1-13.3)
[2023-08-28 20:12] LABS: Alanine Aminotransferase 10 U/L (0-31); Albumin Level 3.5 g/dL (3.5-5.0); Alkaline Phosphatase 78 U/L (39-117); Anion Gap 15 (12-20); Aspartate Amino Transferase 28 U/L (5-31); Bilirubin Total 0.5 mg/dL (0.0-1.0); Blood Urea Nitrogen 12 mg/dL (9-16); Calcium 9.1 mg/dL (8.4-10.2); Carbon Dioxide 31 mmol/L (22-29); Chloride 101 mmol/L (96-108); Creatinine Clr Calc Pharmacy 48.8; Estimated Glomerular Filt Rate 49; Glucose Random 335 mg/dL (60-115); Potassium 3.7 mmol/L (3.3-5.1); Sodium 143 mmol/L (135-145); Total Protein 6.6 g/dL (6.5-8.0)
[2023-08-28 20:16] LABS: B Type Natriuretic Peptide 105 pg/mL (<100)
[2023-08-28 20:19] LABS: Troponin-I High Sensitivity 7.3 ng/L (<3.5-17.0)
[2023-08-28 20:24] LABS: COVID-19 Test Negative (Negative); IDNOW Serial# BCCEAD1C
--- NOTE | 2023-08-28 21:28 | PM.IMHP ---
History of Present Illness Date of Service: 08/28/23 Attending physician on admission: Janette Ellis Chief Complaint: SOB, RODRIGUEZ Pt is a 77-year-old female with a PMH significant for?smoking-related COPD, chronic hypercarbic and hypoxic respiratory failure, alcohol use disorder, chronic back pain on chronic opioids, unspecified seizure disorder, CKD 3, GERD, and enucleated right eye who presents from SNF to the ED with?increased shortness of breath and dyspnea upon exertion. Patient is a resident for the past 5 months of [facility] and [facility] and was last seen in the ED 4 days prior for similar symptoms of SOB/dyspnea. Patient with a long history of COPD exacerbations and acute on chronic hypoxic and hypercarbic respiratory failure, she was treated with DuoNebs, Mag sulfate, and IV steroids and sent back to facility after feeling better. Reports she felt a ?little improved? for a day or 2, but then symptoms worsened again starting yesterday. Patient's SOB and dyspnea were especially bad this morning and so she was sent back to the ED for re-evaluation. She reports being on 2-3 L NC at night, though occasionally will use her oxygen during the day if she is feeling particularly short of breath. Patient was found to be satting in the mid 80s by EMS on 3L NC. States she has had 2-3 episodes of nausea and vomiting, occasionally productive cough, and has had decreased p.o. intake due to not feeling like eating anything. Denies chest pain/pressure. No fever or chills. Denies belly pain. Endorses chronic back pain and chronic lower leg edema she thinks states is around her baseline. In the ED patient was afebrile but tachycardic up to 118, and tachypneic up to 25, satting as low as 87% on 3 L NC. Labs were significant for WBC 3.5, platelets 43, bicarb 31, random glucose 335. Electrolytes WNL. Renal and hepatic function baseline. Troponin 7.3. BNP essentially WNL at 105. VBG with pH 7.34, bicarb 41. CXR showed unchanged central bronchial wall thickening that could be seen in the context of small airway disease. EKG demonstrated sinus tachycardia without evidence of ST elevations or depressions. Pt was treated with DuoNebs, Mag sulfate, guaifenesin, Solu-Medrol. Pt will be admitted to the hospital for treatment and further evaluation of acute on chronic hypoxic and hypercarbic respiratory failure in the setting of COPD exacerbation. Review of Systems Review of Systems: Shortness of breath/dyspnea on exertion Wheezing Productive cough Nausea And vomiting x2 episodes anorexia Chronic lower leg edema Chronic back pain No fever, chills, abdominal pain PMFSH Medical History Hepatitis C Splenomegaly Cirrhosis Type 2 diabetes mellitus Morbid obesity CHF (congestive heart failure) Social History Household Members: None Housing: [facility] Do you presently have visiting nurse or other home services: No Alcohol intake: former Patient Tobacco Use Status: Current everyday Tobacco user Tobacco use type: Cigarette Cigarettes Per Day: 5 Smoked in Last 30 Days: No Use of substances other than those prescribed or required for medical reasons: No Advance Directives: Yes Advance Directives on File: Yes Advance Directives Date on File: 06/29/23 service: No Meds Allergies Allergy/AdvReac Type Severity Reaction Status Date / Time acetaminophen Allergy Unknown Unknown Verified 06/27/23 22:57 Tuberculin AdvReac Unknown Unknown Uncoded 06/27/23 22:57 Active Medications: Current Medications Acetaminophen (Acetaminophen 325 Mg Tablet) 650 mg PO Q6H PRN PRN Reason: Pain, Mild (Pain Scale 1-3) Albuterol/Ipratropium (Albuterol/Iprat 2.5/0.5mg 3 Ml Ampul.Neb) 3 ml INHALE RQ4H WHILE AWAKE SCOUT Albuterol/Ipratropium (Albuterol/Iprat 2.5/0.5mg 3 Ml Ampul.Neb) 3 ml INHALE Q4H PRN PRN Reason: Wheezing Enoxaparin Sodium (Enoxaparin Sodium 40 Mg/0.4 Ml Syringe) 40 mg SUBCUT Q24H SCOUT Melatonin (Melatonin 3 Mg Tablet) 6 mg PO BEDTIME PRN PRN Reason: Insomnia Methylprednisolone Sodium Succinate (Methylprednisolone Sod Succ 40 Mg/Ml Vial) 40 mg IVPUSH Q12H SCOUT Ondansetron HCl (Ondansetron Hcl 4 Mg/2 Ml Vial) 4 mg IVPUSH Q8H PRN PRN Reason: Nausea and Vomiting Sodium Chloride (0.9 % Sodium Chloride Flush 3 Ml Syringe) 3 ml IVFLUSH QSHIFT [facility] Home Medications Medication Instructions Recorded Confirmed Last Taken Type acamprosate 333 mg tablet,delayed 333 mg PO TID 06/28/23 08/28/23 Unknown History release albuterol sulfate 90 mcg/actuation 2 puff inhalation BID 06/28/23 08/28/23 Unknown History aerosol inhaler (ProAir HFA) alprazolam 0.25 mg tablet (Xanax) 0.25 mg PO BID PRN Anxiety 06/28/23 08/28/23 Unknown History bisacodyl 10 mg rectal suppository 10 mg RI DAILY PRN Constipation 06/28/23 08/28/23 Unknown History bisacodyl 5 mg tablet,delayed 30 mg PO BEDTIME 06/28/23 08/28/23 Unknown History release (Dulcolax (bisacodyl)) cetirizine 10 mg tablet 10 mg PO DAILY 06/28/23 08/28/23 Unknown History dextran 70-hypromellose eye drops 1 drp ophthalmic (eye) TID 06/28/23 08/28/23 Unknown History in a dropperette (Artificial Tears (PF) drops in a dropperette) diclofenac sodium 1 % topical gel 4 g topical QID PRN Pain 06/28/23 08/28/23 Unknown History escitalopram oxalate 20 mg tablet 20 mg PO DAILY 06/28/23 08/28/23 Unknown History fluticasone fur. 200 mcg-umeclid 1 inh inhalation DAILY 06/28/23 08/28/23 Unknown History 62.5 mcg-vilant 25 mcg inhalat.powder (Trelegy Ellipta) fluticasone propionate 50 1 spray intranasal BID 06/28/23 08/28/23 Unknown History mcg/actuation nasal spray,suspension (Flonase Allergy Relief) folic acid 1 mg tablet 1 mg PO DAILY 06/28/23 08/28/23 Unknown History furosemide 20 mg tablet 60 mg PO DAILY 06/28/23 08/28/23 Unknown History gabapentin 300 mg capsule 300 mg PO TID 06/28/23 08/28/23 Unknown History ipratropium 0.5 mg-albuterol 3 mg 3 ml inhalation Q8H PRN Shortness 06/28/23 08/28/23 Unknown History (2.5 mg base)/3 mL nebulization Of Breath Or Wheezing soln lactulose 10 gram/15 mL oral 30 ml PO Q2D@0900,1500,2100 06/28/23 08/28/23 06/26/23 History solution levetiracetam 500 mg tablet 500 mg PO BID 06/28/23 08/28/23 Unknown History (Keppra) lidocaine 5 % topical patch 1 patch topical DAILY 06/28/23 08/28/23 Unknown History magnesium hydroxide 400 mg/5 mL 30 ml PO DAILY PRN Constipation 06/28/23 08/28/23 Unknown History oral suspension (Milk of Magnesia) methyl salicylate 15 %-menthol 10 1 appl topical DAILY PRN neck pain 06/28/23 08/28/23 Unknown History % topical cream (Muscle Rub) metoprolol tartrate 25 mg tablet 25 mg PO DAILY 06/28/23 08/28/23 Unknown History multivitamin 1 tab PO DAILY 06/28/23 08/28/23 Unknown History naloxone 4 mg/actuation nasal 4 mg intranasal Q3M PRN Opioid 06/28/23 08/28/23 Unknown History spray (Narcan) Overdose nystatin 100,000 unit/gram topical 1 appl topical BID 06/28/23 08/28/23 Unknown History powder oxycodone 5 mg tablet 5 mg PO Q4H PRN Moderate Pain 06/28/23 08/28/23 Unknown History (Scale Score 5-6) pantoprazole 40 mg tablet,delayed 40 mg PO DAILY@0630 06/28/23 08/28/23 Unknown History release sodium phosphates 19 gram-7 118 ml RI DAILY PRN Constipation 06/28/23 08/28/23 Unknown History gram/118 mL enema (Fleet Enema) thiamine HCl (vitamin B1) 100 mg 100 mg PO DAILY 06/28/23 08/28/23 Unknown History tablet tizanidine 2 mg tablet 2 mg PO Q8H PRN Muscle Spasm 06/28/23 08/28/23 Unknown History trazodone 50 mg tablet 50 mg PO BEDTIME 06/28/23 08/28/23 Unknown History Physical Exam Vital Signs and Narrative: Vital Signs: Last Vital Signs Temp 98.9 F 08/28/23 19:22 Pulse 113 H 08/28/23 19:45 Resp 25 H 08/28/23 19:45 BP 134/81 08/28/23 19:22 Pulse Ox 94 08/28/23 19:22 O2 Del Method Nasal Cannula 08/28/23 19:22 Oxygen Flow Rate 4 08/28/23 19:22 BMI result Body Mass Index 40.7 Constitutional: Alert, audibly wheezy, in no acute distress. Mental Status: Oriented to person, place and time. Eyes: Right eye enucleated, left pupil round and reactive to light. Ear, Nose, and Throat: Oropharynx clear, mucous membranes moist. Ears and nose without deformities. Trachea midline. Respiratory: Diffuse expiratory wheezing, pt audibly wheezing. Cardiovascular: S1, S2 regular, tachy. No murmurs, rubs, or gallops. Gastrointestinal: Abdomen soft, non-tender, obese. Normal bowel sounds. Neurologic: Cranial nerves II-XII are grossly intact bilaterally. No focal neurological deficits. Moves all extremities spontaneously. Skin: No rashes or lesions noted. Musculoskeletal: No cyanosis or clubbing. Extremities: 2+ bilateral lower extremity edema. Psychiatric: Normal mood and affect. Results Labs 08/28/23 19:44 08/28/23 19:44 Labs: Laboratory Results - last 24 hr 08/28/23 08/28/23 19:44 19:51 MCV 90.7 MCH 27.6 MCHC 30.4 L RDW 15.6 Plt Count 43 L MPV 12.3 Immature Gran % (Auto) 0.3 Neut % (Auto) 79.1 H Lymph % (Auto) 14.1 L [place] % (Auto) 6.2 Eos % (Auto) 0.0 Baso % (Auto) 0.3 Lymph # (Auto) 0.5 L [place] # (Auto) 0.2 Eos # (Auto) 0.0 Baso # (Auto) 0.0 Abs Immat Gran (auto) 0.01 Absolute Neuts (auto) 2.8 Absolute Nucleated RBC 0.000 Nucleated RBC % (auto) 0.0 PT 11.6 INR 1.0 VBG pH 7.34 VBG pCO2 75 VBG pO2 62 VBG HCO3 41 H VBG O2 Saturation 85.0 VBG Base Excess 12.3 Anion Gap 15 Estim Creat Clear Calc 48.8 Estimated GFR 49 Random Glucose 335 H Calcium 9.1 Magnesium 2.0 Total Bilirubin 0.5 AST 28 ALT 10 Alkaline Phosphatase 78 B-Natriuretic Peptide 105 H Total Protein 6.6 Albumin 3.5 COVID-19 (GEORGE) Negative COVID-19 Clin Com See Note Imaging Radiologist's Impressions: Impressions Chest X-Ray 08/28/23 19:26 IMPRESSION: Unchanged central bronchial wall thickening that could be seen in the context of small airways disease. Assessment and Plan (1) Hypoxia: Status: Acute (2) COPD exacerbation: Status: Acute Plan Pt is a 77-year-old female with a PMH significant for?smoking-related COPD, chronic hypercarbic and hypoxic respiratory failure, alcohol use disorder, chronic back pain on chronic opioids, unspecified seizure disorder, CKD 3, GERD, and enucleated right eye who presents from SNF to the ED with?increased shortness of breath and dyspnea upon exertion. Pt will be admitted to the hospital for treatment and further evaluation of acute on chronic hypoxic and hypercarbic respiratory failure in the setting of COPD exacerbation. Acute on chronic hypercarbic and hypoxic respiratory failure in the setting of COPD exacerbation Patient with increased SOB/D 0 E, occasionally productive cough, desatting as low as 87% on 3L NC Patient given IV steroids, nebulizers, Mag sulfate in ED but still symptomatic No clear infectious source: Patient afebrile, no leukocytosis Tachypnea and secondary to albuterol and breathing treatments Will treat with Solu-Medrol, DuoNebs, guaifenesin, azithromycin, started 08/28/2023 Titrate O2 >92, wean as tolerated Monitor respiratory status HFpEF Does not appear to be in acute exacerbation: CXR clear, BNP essentially WNL at 105 Patient does have bilateral lower leg pitting edema Continue home Lasix Unspecified seizure disorder Continue levetiracetam Chronic back pain on chronic opioids Continue oxycodone Chronic constipation Patient with limited mobility, chronic opioids Continue home meds Insomnia Continue home meds Obesity class III Weight loss encouraged Full Code Attending:?Dr. Ellis DVT Prophylaxis: Lovenox Pt will require a hospitalization of at least two nights for treatment of?acute chronic hypercarbic and hypoxic respiratory failure in the setting of acute COPD exacerbation. Patient be treated with IV steroids, breathing treatments, and close monitoring. Time Spent With Patient Time: Total time managing care of this patient today ____ minutes. Quality Stroke Does the patient have a stroke diagnosis?: No VTE Prior VTE?: No VTE Risk Level:: Medical - moderate - high VTE Device Contraindication: Treatment Not Indicated VTE Drug Contraindication: N/A - Med Ordered
[2023-08-28] MEDS: oxyCODONE HCl Immed Release 5 MG TABLET PO (21:40)
[2023-08-28] MEDS: traZODone HCL 50 MG TABLET PO (21:40)
[2023-08-28] MEDS: ALPRAZolam 0.25 MG TABLET PO (21:40)
[2023-08-28] MEDS: Enoxaparin Sodium 40 MG/0.4 ML SYRINGE SUBCUT (21:41)
[2023-08-28] MEDS: levETIRAcetam 500 MG TABLET PO (21:41)
--- NOTE | 2023-08-28 21:45 | PC.NURSE ---
pt requested prn for pain. pt medicated per mar with bedtime meds. pt helped to reposition; requested curtain to be closed as would like to sleep. sats 94% on 3L NC; sinus tachy on monitor provider aware. call laureano within reach.
[2023-08-28] MEDS: Acamprosate Calcium 333 MG TABLET.DR PO (23:33)
[2023-08-28] MEDS: Gabapentin 300 MG CAPSULE PO (23:33)
[2023-08-28] MEDS: Benzonatate 100 MG CAPSULE 200 MG PO (23:33)
[2023-08-28] MEDS: Insulin Glargine,Hum.rec.anlog 100 UNIT/ML 10 ML VIAL 20 UNIT SUBCUT (23:33)
--- NOTE | 2023-08-28 23:40 | PC.NURSE ---
RN outreached Hospitalist Dr. Ellis to inquire about the pt's ordered ABX. RN inquired about need for lactic acid and blood cultures prior to ABX being hung. Per Hospitalist there is no need for cultures and/or lactic acid to be drawn.
[2023-08-28] MEDS: Azithromycin 500 MG in 0.9 % Sodium Chloride 250 ML 125 MG IV (23:43)
[2023-08-28] MEDS: 0.9 % Sodium Chloride Flush 3 ML SYRINGE IVFLUSH (23:44)
--- NOTE | 2023-08-28 23:48 | PC.NURSE ---
iv abx infusing per order. no cultures/lactic per Dr. Ellis. poc recheck 218 pt medicated per jan. pt previously tachy d/t breathing tx; now nsr 91 bpm on monitor. afebrile.
[2023-08-28 23:49] LABS: Glucose, Whole Blood 218 mg/dL (60-115)
[2023-08-29] VITALS (11 sets, daily range): BP systolic 130–148; BP diastolic 61–75; PULSE 59–99; RESP 15–20; TEMP 36.4–36.8; O2SAT 93–99; BMI 41.5
[2023-08-29 05:17] LABS: Estimated Average Glucose 137 mg/dL; Hemoglobin A1c % 6.4 % (<6.0)
[2023-08-29 05:35] LABS: Hematocrit 39.3 % (37.0-47.0); Hemoglobin 11.7 g/dl (12.0-16.0); Imm Gran Abs Auto 0.01 X10*3/uL (0.00-0.03); Imm Gran Pct Auto 0.5 % (0.0-0.4); Lymphocytes Absolute Auto 0.2 X10*3/uL (1.2-4.9); MANUAL DIFF FLAG SCAN; Mean Corpuscular HGB Conc 29.8 g/dl (31.0-35.0); Mean Corpuscular Hemoglobin 27.3 pg (27.0-33.0); Mean Corpuscular Volume 91.8 fL (80.0-98.0); Monocytes Absolute Auto 0.1 X10*3/uL (0.1-1.2); Monocytes Percent Auto 2.9 % (2-11); Neutrophils Absolute Auto 1.8 x10*3/uL (2.0-8.3); Neutrophils Percent Auto 86.6 % (45-73); Red Blood Count 4.28 X10*6/uL (4.20-5.50); Red Cell Distribution Width 15.5 % (11.0-16.0); SCAN SMEAR FLAG 1
[2023-08-29 05:38] LABS: Anion Gap 13 (12-20); Blood Urea Nitrogen 11 mg/dL (9-16); Calcium 9.2 mg/dL (8.4-10.2); Carbon Dioxide 34 mmol/L (22-29); Chloride 102 mmol/L (96-108); Creatinine Clr Calc Pharmacy 54.8; Estimated Glomerular Filt Rate 56; Glucose Random 216 mg/dL (60-115); Potassium 4.3 mmol/L (3.3-5.1); Sodium 145 mmol/L (135-145)
[2023-08-29 05:44] LABS: Platelet Count 27 X10*3/uL (160-400); White Blood Count 2.1 X10*3/uL (4.8-10.8)
[2023-08-29 06:15] LABS: SLIDE REVIEW VERIFIED
[2023-08-29 07:28] LABS: Glucose, Whole Blood 166 mg/dL (60-115)
[2023-08-29] MEDS: Albuterol/Iprat 2.5/0.5MG 3 ML AMPUL.NEB INHALE ×3 (08:05→15:13)
[2023-08-29] MEDS: Loratadine 10 MG TABLET PO (08:11)
[2023-08-29] MEDS: Omeprazole 20 MG CAPSULE.DR PO (08:11)
[2023-08-29] MEDS: Furosemide 20 MG TABLET 60 MG PO (08:11)
[2023-08-29] MEDS: Metoprolol Tartrate 25 MG TABLET PO (08:12)
[2023-08-29] MEDS: Gabapentin 300 MG CAPSULE PO ×3 (08:12→22:24)
[2023-08-29] MEDS: levETIRAcetam 500 MG TABLET PO ×2 (08:12→22:26)
[2023-08-29] MEDS: Escitalopram Oxalate 20 MG TABLET PO (08:12)
[2023-08-29] MEDS: Folic Acid 1 MG TABLET PO (08:12)
[2023-08-29] MEDS: Thiamine HCL 100 MG TABLET PO (08:13)
[2023-08-29] MEDS: guaiFENesin LA 600 MG TAB.ER.12H PO ×2 (08:13→22:26)
[2023-08-29] MEDS: Benzonatate 100 MG CAPSULE 200 MG PO ×3 (08:13→22:25)
--- NOTE | 2023-08-29 08:13 | PHA.MEDREC ---
Pharmacy Consult ? Medication Reconciliation Pharmacy has reviewed the medication reconciliation. List from [facility]
[2023-08-29] MEDS: Multivitamin TABLET 1 TAB PO (08:14)
[2023-08-29] MEDS: methylPREDNISolone Sod Succ 40 MG/ML VIAL IVPUSH ×2 (08:14→19:28)
[2023-08-29] MEDS: Insulin Lispro 100 UNIT/ML 3 ML VIAL SUBCUT ×3 (08:14→22:32)
--- NOTE | 2023-08-29 08:49 | MHC.CM.PN ---
CM MET WITH PT WHO REPORTS SHE HAS BEEN STAYING AT [facility] SINCE LOSING HER HOUSING SHE REPORTS THIS IS TEMPORARY UNTIL SHE IS ABLE TO FIND NEW HOUSING SHE DECLINES RESOURCES AND REPORTS SHE HAS A COMMUNITY CM ASSISTING WITH THIS ALREADY PT REPORTS SHE USES A WHEEL CHAIR AND OXYGEN AT [place] SHE SEES LIZETTE CANO AT [facility] BUT STATES SHE ALSO HAS A PCP AT [facility] SHE HAS A HCP AND MOLST ON FILE DCP: RETURN TO [facility] PT MAY NEED A PT EVAL TO SKILL BACK IN BLS TRANSPORT
--- NOTE | 2023-08-29 09:50 | PC.NURSE ---
assumed care of pt at 0700. pt a&o x4, pleasant, calm, and cooperative. pt given breathing treatment by respiratory and medicated per jan. respiratory titrated pt down to 3L O2 via NC. pt had coughing fit while this RN was medicating pt. has since subsided. pt ate couple bites of breakfast. pt on purewick. call laureano within pt reach. awaiting bed assignment. plan of care ongoing.
[2023-08-29] MEDS: Acamprosate Calcium 333 MG TABLET.DR PO ×3 (10:04→22:27)
--- NOTE | 2023-08-29 10:12 | P.PNIM_ITS ---
Subjective Subjective Date of Service: 08/29/23 Review of Systems Follow up COPD feeling better, breathing is better Physical Exam 2 Vital Signs: Vital Signs: Last Vital Signs Temp 97.6 F 08/29/23 07:37 Pulse 91 08/29/23 08:08 Resp 19 08/29/23 08:08 BP 148/72 H 08/29/23 08:08 Pulse Ox 94 08/29/23 08:08 O2 Del Method Nasal Cannula 08/29/23 08:08 O2 Flow Rate 4 08/29/23 08:08 Oxygen Flow Rate 4 08/28/23 19:22 BMI result Body Mass Index 40.7 Appearing in no acute distress lung sounds exp wheezing heart regular rate rhythm, clear S1, S2 positive bowel sounds, abdomen is soft, nontender neuro patient is alert x3, no focal deficits Objective Data Active Medications Acamprosate (Acamprosate Calcium 333 Mg Tablet.) 333 mg PO TID [facility] Last Admin: 08/29/23 10:04 Dose: 333 mg Documented By: LESLIE Acetaminophen (Acetaminophen 325 Mg Tablet) 650 mg PO Q6H PRN PRN Reason: Pain, Mild (Pain Scale 1-3) Albuterol Sulfate (Albuterol Sulfate 90 Mcg 8 Gm Inhaler) 2 puff INHALE RBID [facility] Last Admin: 08/29/23 07:34 Dose: Not Given Documented By: CARMITA Non-Admin Reason: Duplicate Order Albuterol/Ipratropium (Albuterol/Iprat 2.5/0.5mg 3 Ml Ampul.Neb) 3 ml INHALE RQ4H WHILE AWAKE [facility] Last Admin: 08/29/23 08:05 Dose: 3 ml Documented By: CARMITA Albuterol/Ipratropium (Albuterol/Iprat 2.5/0.5mg 3 Ml Ampul.Neb) 3 ml INHALE Q4H PRN PRN Reason: Wheezing Alprazolam (Alprazolam 0.25 Mg Tablet) 0.25 mg PO BID PRN PRN Reason: Anxiety Artificial Tears (Artificial Tears 15 Ml Drops) 1 drop EYE-BOTH TID [facility] Benzonatate (Benzonatate 100 Mg Capsule) 200 mg PO TID [facility] Last Admin: 08/29/23 08:13 Dose: 200 mg Documented By: LESLIE Bisacodyl (Bisacodyl 5 Mg Tablet.Dr) 30 mg PO BEDTIME [facility] Last Admin: 08/29/23 02:20 Dose: Not Given Documented By: JULY Non-Admin Reason: Physician Held Med Dextrose (Dextrose 50 % 25 Gm/50 Ml Syringe) 25 gm IVPUSH Q15M PRN; Protocol PRN Reason: per Hypoglycemia Standing Ord. Enoxaparin Sodium (Enoxaparin Sodium 40 Mg/0.4 Ml Syringe) 40 mg SUBCUT Q24H [facility] Last Admin: 08/28/23 21:41 Dose: 40 mg Documented By: JULY Escitalopram Oxalate (Escitalopram Oxalate 20 Mg Tablet) 20 mg PO DAILY [facility] Last Admin: 08/29/23 08:12 Dose: 20 mg Documented By: LESLIE Fluticasone Propionate (Fluticasone Propionate Nasal 16 Gm [place]) 1 spray NOSTRIL-B BID [facility] Fluticasone/Umeclidinium/Vilanterol (Fluticasone/Umeclidinium/Vilanterol 200/62.5/25 Blst.W.Dev) 1 puff INHALE RDAILY [facility] Last Admin: 08/29/23 07:54 Dose: Not Given Documented By: CARMITA Non-Admin Reason: Med Not Available Folic Acid (Folic Acid 1 Mg Tablet) 1 mg PO DAILY [facility] Last Admin: 08/29/23 08:12 Dose: 1 mg Documented By: LESLIE Furosemide (Furosemide 20 Mg Tablet) 60 mg PO DAILY [facility]; Protocol Last Admin: 08/29/23 08:11 Dose: 60 mg Documented By: LESLIE Gabapentin (Gabapentin 300 Mg Capsule) 300 mg PO TID [facility] Last Admin: 08/29/23 08:12 Dose: 300 mg Documented By: LESLIE Glucose (Glucose Gel 15 Gm Gel..Gram.) 15 gm PO Q15M PRN; Protocol PRN Reason: per Hypoglycemia Standing Ord. Guaifenesin (Guaifenesin La 600 Mg Tab.Er.12h) 600 mg PO BID [facility] Last Admin: 08/29/23 08:13 Dose: 600 mg Documented By: LESLIE Azithromycin 500 mg/ Sodium (Chloride) 250 mls @ 125 mls/hr IV Q24H [facility] Stop: 08/31/23 22:14 Last Infusion: 08/29/23 01:45 Dose: Infused Documented By: JULY Insulin Human Lispro (Insulin Lispro 100 Unit/Ml 3 Ml Vial) 0 unit SUBCUT QIDACHS [facility]; Protocol Last Admin: 08/29/23 08:14 Dose: 2 unit Documented By: LESLIE Lactulose (Lactulose 20 Gm/30 Ml Solution) 20 gm PO Q2D@0900,1500,2100 [facility] Levetiracetam (Levetiracetam 500 Mg Tablet) 500 mg PO BID [facility] Last Admin: 08/29/23 08:12 Dose: 500 mg Documented By: LESLIE Loratadine (Loratadine 10 Mg Tablet) 10 mg PO DAILY [facility] Last Admin: 08/29/23 08:11 Dose: 10 mg Documented By: LESLIE Magnesium Hydroxide (Milk Of Magnesia 30 Ml Oral.Susp) 30 ml PO DAILY PRN PRN Reason: Constipation Melatonin (Melatonin 3 Mg Tablet) 6 mg PO BEDTIME PRN PRN Reason: Insomnia Methylprednisolone Sodium Succinate (Methylprednisolone Sod Succ 40 Mg/Ml Vial) 40 mg IVPUSH Q12H [facility] Last Admin: 08/29/23 08:14 Dose: 40 mg Documented By: LESLIE Metoprolol Tartrate (Metoprolol Tartrate 25 Mg Tablet) 25 mg PO DAILY [facility]; Protocol Last Admin: 08/29/23 08:12 Dose: 25 mg Documented By: LESLIE Multivitamins/Vitamin C (Multivitamin Tablet) 1 tab PO DAILY [facility] Last Admin: 08/29/23 08:14 Dose: 1 tab Documented By: LESLIE Omeprazole (Omeprazole 20 Mg Capsule.Dr) 20 mg PO DAILY@0630 [facility] Last Admin: 08/29/23 08:11 Dose: 20 mg Documented By: LESLIE Ondansetron HCl (Ondansetron Hcl 4 Mg/2 Ml Vial) 4 mg IVPUSH Q8H PRN PRN Reason: Nausea and Vomiting Oxycodone HCl (Oxycodone Hcl Immed Release 5 Mg Tablet) 5 mg PO Q4H PRN PRN Reason: Pain, Moderate(Pain Scale 4-6) Last Admin: 08/28/23 21:40 Dose: 5 mg Documented By: JULY Sodium Biphosphate/Sodium Phosphate (Sodium Phosphate,[place]-Dibasic 133 Ml Enema) 118 ml [place] DAILY PRN PRN Reason: Constipation Sodium Chloride (0.9 % Sodium Chloride Flush 3 Ml Syringe) 3 ml IVFLUSH QSHIFT [facility] Last Admin: 08/29/23 08:22 Dose: Not Given Documented By: LESLIE Non-Admin Reason: Med Not Available Thiamine HCl (Thiamine Hcl 100 Mg Tablet) 100 mg PO DAILY [facility] Last Admin: 08/29/23 08:13 Dose: 100 mg Documented By: LESLIE Tizanidine HCl (Tizanidine Hcl 4 Mg Tablet) 2 mg PO Q8H PRN PRN Reason: Muscle Spasm Trazodone HCl (Trazodone Hcl 50 Mg Tablet) 50 mg PO BEDTIME [facility] Labs 08/29/23 05:12 08/29/23 05:12 Labs: Laboratory Results - last 24 hr 08/28/23 08/28/23 08/28/23 19:44 19:51 23:40 MCV 90.7 MCH 27.6 MCHC 30.4 L RDW 15.6 Plt Count 43 L MPV 12.3 Immature Gran % (Auto) 0.3 Neut % (Auto) 79.1 H Lymph % (Auto) 14.1 L [place] % (Auto) 6.2 Eos % (Auto) 0.0 Baso % (Auto) 0.3 Lymph # (Auto) 0.5 L [place] # (Auto) 0.2 Eos # (Auto) 0.0 Baso # (Auto) 0.0 Abs Immat Gran (auto) 0.01 Absolute Neuts (auto) 2.8 Absolute Nucleated RBC 0.000 Nucleated RBC % (auto) 0.0 Smear Tech's Comments PT 11.6 INR 1.0 VBG pH 7.34 VBG pCO2 75 VBG pO2 62 VBG HCO3 41 H VBG O2 Saturation 85.0 VBG Base Excess 12.3 Anion Gap 15 Estim Creat Clear Calc 48.8 Estimated GFR 49 POC Glucose 218 H Random Glucose 335 H Estimat Average Glucose 137 Hemoglobin A1c % 6.4 H Calcium 9.1 Magnesium 2.0 Total Bilirubin 0.5 AST 28 ALT 10 Alkaline Phosphatase 78 B-Natriuretic Peptide 105 H Total Protein 6.6 Albumin 3.5 COVID-19 (GEORGE) Negative COVID-19 Clin Com See Note 08/29/23 08/29/23 05:12 07:21 MCV 91.8 MCH 27.3 MCHC 29.8 L RDW 15.5 Plt Count 27 L D MPV Not Reportable Immature Gran % (Auto) 0.5 H Neut % (Auto) 86.6 H Lymph % (Auto) 10.0 L [place] % (Auto) 2.9 Eos % (Auto) 0.0 Baso % (Auto) 0.0 Lymph # (Auto) 0.2 L [place] # (Auto) 0.1 Eos # (Auto) 0.0 Baso # (Auto) 0.0 Abs Immat Gran (auto) 0.01 Absolute Neuts (auto) 1.8 L Absolute Nucleated RBC 0.000 Nucleated RBC % (auto) 0.0 Smear Tech's Comments VERIFIED PT INR VBG pH VBG pCO2 VBG pO2 VBG HCO3 VBG O2 Saturation VBG Base Excess Anion Gap 13 Estim Creat Clear Calc 54.8 Estimated GFR 56 POC Glucose 166 H Random Glucose 216 H Estimat Average Glucose Hemoglobin A1c % Calcium 9.2 Magnesium Total Bilirubin AST ALT Alkaline Phosphatase B-Natriuretic Peptide Total Protein Albumin COVID-19 (GEORGE) COVID-19 Clin Com Assessment and Plan (1) Chronic lung disease: Status: Acute (2) Acute on chronic respiratory failure with hypoxia and hypercapnia: Status: Acute Plan 77-year-old female with a PMH significant for?smoking-related COPD, chronic hypercarbic and hypoxic respiratory failure, alcohol use disorder, chronic back pain on chronic opioids, unspecified seizure disorder, CKD 3, GERD, and enucleated right eye who presents from SNF to the ED with?increased shortness of breath and dyspnea upon exertion. Pt will be admitted to the hospital for treatment and further evaluation of acute on chronic hypoxic and hypercarbic respiratory failure in the setting of COPD exacerbation. Acute on chronic hypercarbic and hypoxic respiratory failure in the setting of COPD exacerbation Patient with increased SOB, occasionally productive cough, desatting as low as 87% on 3L NC No clear infectious source Patient afebrile, no leukocytosis continue Solu-Medrol, DuoNebs, guaifenesin, azithromycin, started 08/28/2023 Titrate O2 >92, wean as tolerated HFpEF Does not appear to be in acute exacerbation CXR clear, BNP essentially WNL at 105 Patient does have bilateral lower leg pitting edema that is chronic Continue home Lasix Pancytopenia hx of chronic liver disease/cirrhosis secondary to alcohol use, hepatitis C chronic thrombocytopenia no bleeding monitor Unspecified seizure disorder Continue levetiracetam Chronic back pain on chronic opioids Continue oxycodone Chronic constipation Patient with limited mobility, chronic opioids Continue home meds Insomnia Continue home meds Morbid Obesity. BMI 40.7 Weight loss encouraged Full Code Attending:?Dr. Villalba DVT Prophylaxis: Lovenox continue treatment of?acute chronic hypercarbic and hypoxic respiratory failure in the setting of acute COPD exacerbation. IV steroids, breathing treatments, and close monitoring. Time Spent With Patient Time: Total time managing care of this patient today ____ minutes. Quality Stroke Does the patient have a stroke diagnosis?: No VTE Prior VTE?: No VTE Risk Level:: Medical - moderate - high VTE Device Contraindication: Treatment Not Indicated VTE Drug Contraindication: N/A - Med Ordered
[2023-08-29] MEDS: Artificial Tears 15 ML DROPS 1 DROP EYE-BOTH ×3 (11:48→22:37)
[2023-08-29 12:32] LABS: Glucose, Whole Blood 150 mg/dL (60-115)
--- NOTE | 2023-08-29 13:51 | PC.NURSE ---
called to pharmacy x2 for pt flonase earlier this AM. still have not received med.
--- NOTE | 2023-08-29 14:47 | MHC.EDTECH ---
Patient changed, new purewick placed, suction canister of urine emptied (800ml). Given blankets, and also given juice/milk/water per Pts request. Call laureano within reach.
[2023-08-29 17:21] LABS: Glucose, Whole Blood 223 mg/dL (60-115)
--- NOTE | 2023-08-29 22:24 | PC.NURSE ---
Called pharmacy for artificial tears. Will await eye drops.
[2023-08-29] MEDS: traZODone HCL 50 MG TABLET PO (22:27)
[2023-08-29 22:28] LABS: Glucose, Whole Blood 269 mg/dL (60-115)
[2023-08-29] MEDS: Enoxaparin Sodium 40 MG/0.4 ML SYRINGE SUBCUT (22:29)
[2023-08-29] MEDS: Azithromycin 500 MG in 0.9 % Sodium Chloride 250 ML 125 MG IV (22:33)
[2023-08-29] MEDS: ALPRAZolam 0.25 MG TABLET PO (22:40)
[2023-08-29] MEDS: Fluticasone Propionate Nasal 16 GM SPRAY 1 SPRAY NOSTRIL-B (22:48)
[2023-08-29] MEDS: oxyCODONE HCl Immed Release 5 MG TABLET PO (22:49)
[2023-08-29] MEDS: 0.9 % Sodium Chloride Flush 3 ML SYRINGE IVFLUSH (23:50)
[2023-08-30] VITALS (9 sets, daily range): BP systolic 137–163; BP diastolic 67–77; PULSE 61–84; RESP 16–18; TEMP 36.4–37.6; O2SAT 93–99
[2023-08-30] MEDS: Albuterol/Iprat 2.5/0.5MG 3 ML AMPUL.NEB INHALE ×5 (00:51→19:33)
[2023-08-30] MEDS: oxyCODONE HCl Immed Release 5 MG TABLET PO ×3 (03:30→20:16)
[2023-08-30] MEDS: Omeprazole 20 MG CAPSULE.DR PO (05:57)
[2023-08-30] MEDS: methylPREDNISolone Sod Succ 40 MG/ML VIAL IVPUSH ×2 (05:58→20:16)
--- NOTE | 2023-08-30 06:37 | PC.NURSE ---
Pt admitted to [facility] from ED just prior to midnight. A&Ox4, cooperative with care. Chronic pain noted, PRN Oxycodone with effect. On 3L NC, SOB with exertion, PRN Neb tx with good effect. Loose nonproductive cough noted. Denies chest pain or discomfort. Purewick in place, CYU draining. Bed in lowest locked position, call laureano within reach.
[2023-08-30 06:41] LABS: MANUAL DIFF FLAG NO
[2023-08-30 06:47] LABS: Hematocrit 39.2 % (37.0-47.0); Hemoglobin 11.8 g/dl (12.0-16.0); Imm Gran Abs Auto 0.02 X10*3/uL (0.00-0.03); Imm Gran Pct Auto 0.6 % (0.0-0.4); Lymphocytes Absolute Auto 0.3 X10*3/uL (1.2-4.9); Lymphocytes Percent Auto 8.1 % (20-40); Mean Corpuscular HGB Conc 30.1 g/dl (31.0-35.0); Mean Corpuscular Hemoglobin 27.3 pg (27.0-33.0); Mean Corpuscular Volume 90.5 fL (80.0-98.0); Mean Platelet Volume 12.1 fL (9.4-12.3); Monocytes Absolute Auto 0.2 X10*3/uL (0.1-1.2); Monocytes Percent Auto 5.5 % (2-11); Neutrophils Percent Auto 85.8 % (45-73); Red Blood Count 4.33 X10*6/uL (4.20-5.50); Red Cell Distribution Width 15.1 % (11.0-16.0); White Blood Count 3.4 X10*3/uL (4.8-10.8)
[2023-08-30 06:48] LABS: Platelet Count 33 X10*3/uL (160-400)
[2023-08-30 06:58] LABS: Anion Gap 13 (12-20); Blood Urea Nitrogen 21 mg/dL (9-16); Calcium 9.5 mg/dL (8.4-10.2); Carbon Dioxide 37 mmol/L (22-29); Chloride 99 mmol/L (96-108); Creatinine Clr Calc Pharmacy 46.4; Estimated Glomerular Filt Rate 45; Glucose Random 174 mg/dL (60-115); Potassium 4.4 mmol/L (3.3-5.1); Sodium 145 mmol/L (135-145)
[2023-08-30 07:36] LABS: Glucose, Whole Blood 173 mg/dL (60-115)
[2023-08-30] MEDS: Fluticasone/Umeclidinium/Vilanterol 200/62.5/25 BLST.W.DEV 1 PUFF INHALE (07:41)
[2023-08-30] MEDS: 0.9 % Sodium Chloride Flush 3 ML SYRINGE IVFLUSH ×3 (09:21→20:17)
[2023-08-30] MEDS: Benzonatate 100 MG CAPSULE 200 MG PO ×3 (09:21→20:16)
[2023-08-30] MEDS: Insulin Lispro 100 UNIT/ML 3 ML VIAL SUBCUT ×4 (09:21→20:16)
[2023-08-30] MEDS: Furosemide 20 MG TABLET 60 MG PO (09:22)
[2023-08-30] MEDS: Metoprolol Tartrate 25 MG TABLET PO (09:22)
[2023-08-30] MEDS: levETIRAcetam 500 MG TABLET PO ×2 (09:22→20:16)
[2023-08-30] MEDS: Folic Acid 1 MG TABLET PO (09:23)
[2023-08-30] MEDS: guaiFENesin LA 600 MG TAB.ER.12H PO ×2 (09:23→20:16)
[2023-08-30] MEDS: Thiamine HCL 100 MG TABLET PO (09:24)
[2023-08-30] MEDS: Gabapentin 300 MG CAPSULE PO ×3 (09:24→20:16)
[2023-08-30] MEDS: Loratadine 10 MG TABLET PO (09:24)
[2023-08-30] MEDS: Multivitamin TABLET 1 TAB PO (09:24)
[2023-08-30] MEDS: Escitalopram Oxalate 20 MG TABLET PO (09:25)
[2023-08-30] MEDS: Artificial Tears 15 ML DROPS 1 DROP EYE-BOTH ×3 (09:31→20:24)
[2023-08-30] MEDS: Fluticasone Propionate Nasal 16 GM SPRAY 1 SPRAY NOSTRIL-B ×2 (09:31→20:24)
--- NOTE | 2023-08-30 10:35 | HO.PM.IMPN ---
Subjective Subjective Date of Service: 08/30/23 Review of Systems Follow up COPD feeling better, breathing is better Physical Exam Vital Signs: Vital Signs: Last Vital Signs Temp 97.5 F 08/30/23 07:15 Pulse 66 08/30/23 07:44 Resp 18 08/30/23 07:44 BP 146/67 H 08/30/23 07:15 Pulse Ox 97 08/30/23 07:15 O2 Del Method Nasal Cannula 08/30/23 07:15 O2 Flow Rate 2 08/30/23 07:15 Oxygen Flow Rate 4 08/28/23 19:22 BMI result Body Mass Index 41.5 Appearing in no acute distress lung sounds are clear to auscultation heart regular rate rhythm, clear S1, S2 positive bowel sounds, abdomen is soft, nontender neuro patient is alert x3, no focal deficits Objective Data Active Medications Acamprosate (Acamprosate Calcium 333 Mg Tablet.) 333 mg PO TID [facility] Last Admin: 08/29/23 22:27 Dose: 333 mg Documented By: CATHY Acetaminophen (Acetaminophen 325 Mg Tablet) 650 mg PO Q6H PRN PRN Reason: Pain, Mild (Pain Scale 1-3) Albuterol/Ipratropium (Albuterol/Iprat 2.5/0.5mg 3 Ml Ampul.Neb) 3 ml INHALE RQ4H WHILE AWAKE [facility] Last Admin: 08/30/23 07:41 Dose: 3 ml Documented By: CHRISTIE Albuterol/Ipratropium (Albuterol/Iprat 2.5/0.5mg 3 Ml Ampul.Neb) 3 ml INHALE Q4H PRN PRN Reason: Wheezing Last Admin: 08/30/23 00:51 Dose: 3 ml Documented By: CHILO Alprazolam (Alprazolam 0.25 Mg Tablet) 0.25 mg PO BID PRN PRN Reason: Anxiety Last Admin: 08/29/23 22:40 Dose: 0.25 mg Documented By: CATHY Artificial Tears (Artificial Tears 15 Ml Drops) 1 drop EYE-BOTH TID [facility] Last Admin: 08/30/23 09:31 Dose: 1 drop Documented By: GINLEYM Benzonatate (Benzonatate 100 Mg Capsule) 200 mg PO TID [facility] Last Admin: 08/30/23 09:21 Dose: 200 mg Documented By: KIMBERLYN Bisacodyl (Bisacodyl 5 Mg Tablet.Dr) 30 mg PO BEDTIME [facility] Last Admin: 08/29/23 02:20 Dose: Not Given Documented By: JULY Non-Admin Reason: Physician Held Med Dextrose (Dextrose 50 % 25 Gm/50 Ml Syringe) 25 gm IVPUSH Q15M PRN; Protocol PRN Reason: per Hypoglycemia Standing Ord. Enoxaparin Sodium (Enoxaparin Sodium 40 Mg/0.4 Ml Syringe) 40 mg SUBCUT Q24H [facility] Last Admin: 08/29/23 22:29 Dose: 40 mg Documented By: CATHY Escitalopram Oxalate (Escitalopram Oxalate 20 Mg Tablet) 20 mg PO DAILY [facility] Last Admin: 08/30/23 09:25 Dose: 20 mg Documented By: KIMBERLYN Fluticasone Propionate (Fluticasone Propionate Nasal 16 Gm [place]) 1 spray NOSTRIL-B BID [facility] Last Admin: 08/30/23 09:31 Dose: 1 spray Documented By: KIMBERLYN Fluticasone/Umeclidinium/Vilanterol (Fluticasone/Umeclidinium/Vilanterol 200/62.5/25 Blst.W.Dev) 1 puff INHALE RDAILY [facility] Last Admin: 08/30/23 07:41 Dose: 1 puff Documented By: CHRISTIE Folic Acid (Folic Acid 1 Mg Tablet) 1 mg PO DAILY [facility] Last Admin: 08/30/23 09:23 Dose: 1 mg Documented By: KIMBERLYN Furosemide (Furosemide 20 Mg Tablet) 60 mg PO DAILY [facility]; Protocol Last Admin: 08/30/23 09:22 Dose: 60 mg Documented By: KIMBERLYN Gabapentin (Gabapentin 300 Mg Capsule) 300 mg PO TID [facility] Last Admin: 08/30/23 09:24 Dose: 300 mg Documented By: KIMBERLYN Glucose (Glucose Gel 15 Gm Gel..Gram.) 15 gm PO Q15M PRN; Protocol PRN Reason: per Hypoglycemia Standing Ord. Guaifenesin (Guaifenesin La 600 Mg Tab.Er.12h) 600 mg PO BID [facility] Last Admin: 08/30/23 09:23 Dose: 600 mg Documented By: KIMBERLYN Azithromycin 500 mg/ Sodium (Chloride) 250 mls @ 125 mls/hr IV Q24H [facility] Stop: 08/31/23 22:14 Last Infusion: 08/30/23 00:44 Dose: Infused Documented By: AHFSA Insulin Human Lispro (Insulin Lispro 100 Unit/Ml 3 Ml Vial) 0 unit SUBCUT QIDACHS [facility]; Protocol Last Admin: 08/30/23 09:21 Dose: 2 unit Documented By: KIMBERLYN Lactulose (Lactulose 20 Gm/30 Ml Solution) 20 gm PO Q2D@0900,1500,2100 [facility] Last Admin: 08/30/23 09:26 Dose: Not Given Documented By: KIMBERLYN Non-Admin Reason: Patient Refused Levetiracetam (Levetiracetam 500 Mg Tablet) 500 mg PO BID [facility] Last Admin: 08/30/23 09:22 Dose: 500 mg Documented By: KIMBERLYN Loratadine (Loratadine 10 Mg Tablet) 10 mg PO DAILY [facility] Last Admin: 08/30/23 09:24 Dose: 10 mg Documented By: KIMBERLYN Magnesium Hydroxide (Milk Of Magnesia 30 Ml Oral.Susp) 30 ml PO DAILY PRN PRN Reason: Constipation Melatonin (Melatonin 3 Mg Tablet) 6 mg PO BEDTIME PRN PRN Reason: Insomnia Methylprednisolone Sodium Succinate (Methylprednisolone Sod Succ 40 Mg/Ml Vial) 40 mg IVPUSH Q12H [facility] Last Admin: 08/30/23 05:58 Dose: 40 mg Documented By: HAFSA Metoprolol Tartrate (Metoprolol Tartrate 25 Mg Tablet) 25 mg PO DAILY [facility]; Protocol Last Admin: 08/30/23 09:22 Dose: 25 mg Documented By: KIMBERLYN Multivitamins/Vitamin C (Multivitamin Tablet) 1 tab PO DAILY [facility] Last Admin: 08/30/23 09:24 Dose: 1 tab Documented By: KIMBERLYN Omeprazole (Omeprazole 20 Mg Capsule.) 20 mg PO DAILY@0630 [facility] Last Admin: 08/30/23 05:57 Dose: 20 mg Documented By: HAFSA Ondansetron HCl (Ondansetron Hcl 4 Mg/2 Ml Vial) 4 mg IVPUSH Q8H PRN PRN Reason: Nausea and Vomiting Oxycodone HCl (Oxycodone Hcl Immed Release 5 Mg Tablet) 5 mg PO Q4H PRN PRN Reason: Pain, Moderate(Pain Scale 4-6) Last Admin: 08/30/23 09:34 Dose: 5 mg Documented By: KIMBERLYN Sodium Biphosphate/Sodium Phosphate (Sodium Phosphate,[place]-Dibasic 133 Ml Enema) 118 ml [place] DAILY PRN PRN Reason: Constipation Sodium Chloride (0.9 % Sodium Chloride Flush 3 Ml Syringe) 3 ml IVFLUSH QSHIFT [facility] Last Admin: 08/30/23 09:21 Dose: 3 ml Documented By: KIMBERLYN Thiamine HCl (Thiamine Hcl 100 Mg Tablet) 100 mg PO DAILY [facility] Last Admin: 08/30/23 09:24 Dose: 100 mg Documented By: KIMBERLYN Tizanidine HCl (Tizanidine Hcl 4 Mg Tablet) 2 mg PO Q8H PRN PRN Reason: Muscle Spasm Trazodone HCl (Trazodone Hcl 50 Mg Tablet) 50 mg PO BEDTIME [facility] Last Admin: 08/29/23 22:27 Dose: 50 mg Documented By: SERRANX Labs 08/30/23 06:20 08/30/23 06:20 Labs: Laboratory Results - last 24 hr 08/29/23 08/29/23 08/29/23 12:28 17:13 22:25 MCV MCH MCHC RDW Plt Count MPV Immature Gran % (Auto) Neut % (Auto) Lymph % (Auto) [place] % (Auto) Eos % (Auto) Baso % (Auto) Lymph # (Auto) [place] # (Auto) Eos # (Auto) Baso # (Auto) Abs Immat Gran (auto) Absolute Neuts (auto) Absolute Nucleated RBC Nucleated RBC % (auto) Anion Gap Estim Creat Clear Calc Estimated GFR POC Glucose 150 H 223 H 269 H Random Glucose Calcium 08/30/23 08/30/23 06:20 07:18 MCV 90.5 MCH 27.3 MCHC 30.1 L RDW 15.1 Plt Count 33 L MPV 12.1 Immature Gran % (Auto) 0.6 H Neut % (Auto) 85.8 H Lymph % (Auto) 8.1 L [place] % (Auto) 5.5 Eos % (Auto) 0.0 Baso % (Auto) 0.0 Lymph # (Auto) 0.3 L [place] # (Auto) 0.2 Eos # (Auto) 0.0 Baso # (Auto) 0.0 Abs Immat Gran (auto) 0.02 Absolute Neuts (auto) 3.0 Absolute Nucleated RBC 0.000 Nucleated RBC % (auto) 0.0 Anion Gap 13 Estim Creat Clear Calc 46.4 Estimated GFR 45 POC Glucose 173 H Random Glucose 174 H Calcium 9.5 Assessment and Plan (1) Chronic lung disease: Status: Acute (2) Acute on chronic respiratory failure with hypoxia and hypercapnia: Status: Acute Plan 77-year-old female with a PMH significant for?smoking-related COPD, chronic hypercarbic and hypoxic respiratory failure, alcohol use disorder, chronic back pain on chronic opioids, unspecified seizure disorder, CKD 3, GERD, and enucleated right eye who presents from SNF to the ED with?increased shortness of breath and dyspnea upon exertion. Pt will be admitted to the hospital for treatment and further evaluation of acute on chronic hypoxic and hypercarbic respiratory failure in the setting of COPD exacerbation. Acute on chronic hypercarbic and hypoxic respiratory failure in the setting of COPD exacerbation Better today but with mild exp wheezing No clear infectious source Patient afebrile, no leukocytosis continue Solu-Medrol, DuoNebs, guaifenesin, azithromycin, started 08/28/2023 Titrate O2 >92, wean as tolerated HFpEF Does not appear to be in acute exacerbation CXR clear, BNP essentially WNL at 105 Patient does have bilateral lower leg pitting edema that is chronic Continue home Lasix Pancytopenia hx of chronic liver disease/cirrhosis secondary to alcohol use, hepatitis C chronic thrombocytopenia no bleeding monitor Unspecified seizure disorder Continue levetiracetam Chronic back pain on chronic opioids Continue oxycodone Chronic constipation Patient with limited mobility, chronic opioids Continue home meds Insomnia Continue home meds Morbid Obesity. BMI 40.7 Weight loss encouraged Full Code Attending:?Dr. Villalba DVT Prophylaxis: Lovenox continue treatment of?acute chronic hypercarbic and hypoxic respiratory failure in the setting of acute COPD exacerbation. IV steroids, breathing treatments, and close monitoring. Time Spent With Patient Time: Total time managing care of this patient today ____ minutes. Quality Stroke Does the patient have a stroke diagnosis?: No VTE Prior VTE?: No VTE Risk Level:: Medical - moderate - high VTE Device Contraindication: Treatment Not Indicated VTE Drug Contraindication: N/A - Med Ordered
[2023-08-30 11:29] LABS: Glucose, Whole Blood 253 mg/dL (60-115)
[2023-08-30] MEDS: Acamprosate Calcium 333 MG TABLET.DR PO ×2 (14:40→20:16)
[2023-08-30 15:39] LABS: Glucose, Whole Blood 205 mg/dL (60-115)
[2023-08-30 19:12] LABS: Glucose, Whole Blood 167 mg/dL (60-115)
[2023-08-30] MEDS: Enoxaparin Sodium 40 MG/0.4 ML SYRINGE SUBCUT (20:16)
[2023-08-30] MEDS: traZODone HCL 50 MG TABLET PO (20:16)
[2023-08-30] MEDS: Azithromycin 500 MG in 0.9 % Sodium Chloride 250 ML 125 MG IV (23:31)
[2023-08-31 03:22] VITALS: BP 150/77; PULSE 85; RESP 19; TEMP 36.3
[2023-08-31] MEDS: Omeprazole 20 MG CAPSULE.DR PO (06:12)
[2023-08-31] MEDS: methylPREDNISolone Sod Succ 40 MG/ML VIAL IVPUSH ×2 (06:12→18:32)
[2023-08-31 07:08] LABS: Glucose, Whole Blood 165 mg/dL (60-115)
[2023-08-31 07:13] VITALS: BP 154/76; PULSE 75; RESP 20; TEMP 37.6; O2SAT 93
[2023-08-31] MEDS: Albuterol/Iprat 2.5/0.5MG 3 ML AMPUL.NEB INHALE (08:09)
[2023-08-31] MEDS: Fluticasone/Umeclidinium/Vilanterol 200/62.5/25 BLST.W.DEV 1 PUFF INHALE (08:09)
[2023-08-31 08:11] VITALS: PULSE 75; RESP 18; O2SAT 93
[2023-08-31] MEDS: Fluticasone Propionate Nasal 16 GM SPRAY 1 SPRAY NOSTRIL-B ×2 (08:26→20:57)
[2023-08-31] MEDS: Artificial Tears 15 ML DROPS 1 DROP EYE-BOTH ×3 (08:26→20:58)
[2023-08-31] MEDS: Acamprosate Calcium 333 MG TABLET.DR PO ×3 (08:26→20:57)
[2023-08-31] MEDS: Insulin Lispro 100 UNIT/ML 3 ML VIAL SUBCUT ×4 (08:26→21:25)
[2023-08-31] MEDS: Benzonatate 100 MG CAPSULE 200 MG PO ×3 (08:26→20:57)
[2023-08-31] MEDS: Thiamine HCL 100 MG TABLET PO (08:26)
[2023-08-31] MEDS: Metoprolol Tartrate 25 MG TABLET PO (08:26)
[2023-08-31] MEDS: Multivitamin TABLET 1 TAB PO (08:27)
[2023-08-31] MEDS: Escitalopram Oxalate 20 MG TABLET PO (08:27)
[2023-08-31] MEDS: Folic Acid 1 MG TABLET PO (08:27)
[2023-08-31] MEDS: guaiFENesin LA 600 MG TAB.ER.12H PO ×2 (08:27→20:57)
[2023-08-31] MEDS: oxyCODONE HCl Immed Release 5 MG TABLET PO ×3 (08:27→20:57)
[2023-08-31] MEDS: Furosemide 20 MG TABLET 60 MG PO (08:27)
[2023-08-31] MEDS: Loratadine 10 MG TABLET PO (08:27)
[2023-08-31] MEDS: Gabapentin 300 MG CAPSULE PO ×3 (08:27→20:57)
[2023-08-31] MEDS: levETIRAcetam 500 MG TABLET PO ×2 (08:27→20:57)
[2023-08-31] MEDS: 0.9 % Sodium Chloride Flush 3 ML SYRINGE IVFLUSH ×3 (08:28→20:58)
[2023-08-31] MEDS: ALPRAZolam 0.25 MG TABLET PO (08:29)
--- NOTE | 2023-08-31 10:39 | P.PNIM_ITS ---
Subjective Subjective Date of Service: 08/31/23 Interval History: feeling better but still sob and wheezy Physical Exam 2 Vital Signs: Vital Signs: Last Vital Signs Temp 99.7 F 08/31/23 07:13 Pulse 75 08/31/23 08:11 Resp 18 08/31/23 08:11 BP 154/76 H 08/31/23 07:13 Pulse Ox 93 08/31/23 07:13 O2 Del Method Nasal Cannula 08/31/23 07:13 O2 Flow Rate 2 08/31/23 07:13 FiO2 93 08/31/23 03:22 Oxygen Flow Rate 4 08/28/23 19:22 BMI result Body Mass Index 41.5 Appearing in no acute distress some wheezes heart regular rate rhythm, clear S1, S2 positive bowel sounds, abdomen is soft, nontender neuro patient is alert x3, no focal deficits Objective Data Active Medications Acamprosate (Acamprosate Calcium 333 Mg Tablet.) 333 mg PO TID [facility] Last Admin: 08/31/23 08:26 Dose: 333 mg Documented By: SCOTT Acetaminophen (Acetaminophen 325 Mg Tablet) 650 mg PO Q6H PRN PRN Reason: Pain, Mild (Pain Scale 1-3) Albuterol/Ipratropium (Albuterol/Iprat 2.5/0.5mg 3 Ml Ampul.Neb) 3 ml INHALE RQ4H WHILE AWAKE [facility] Last Admin: 08/31/23 08:09 Dose: 3 ml Documented By: JANNY Albuterol/Ipratropium (Albuterol/Iprat 2.5/0.5mg 3 Ml Ampul.Neb) 3 ml INHALE Q4H PRN PRN Reason: Wheezing Last Admin: 08/30/23 00:51 Dose: 3 ml Documented By: CHILO Alprazolam (Alprazolam 0.25 Mg Tablet) 0.25 mg PO BID PRN PRN Reason: Anxiety Last Admin: 08/31/23 08:29 Dose: 0.25 mg Documented By: SCOTT Artificial Tears (Artificial Tears 15 Ml Drops) 1 drop EYE-BOTH TID [facility] Last Admin: 08/31/23 08:26 Dose: 1 drop Documented By: SCOTT Benzonatate (Benzonatate 100 Mg Capsule) 200 mg PO TID [facility] Last Admin: 08/31/23 08:26 Dose: 200 mg Documented By: SCOTT Bisacodyl (Bisacodyl 5 Mg Tablet.Dr) 30 mg PO BEDTIME [facility] Last Admin: 08/29/23 02:20 Dose: Not Given Documented By: JULY Non-Admin Reason: Physician Held Med Dextrose (Dextrose 50 % 25 Gm/50 Ml Syringe) 25 gm IVPUSH Q15M PRN; Protocol PRN Reason: per Hypoglycemia Standing Ord. Enoxaparin Sodium (Enoxaparin Sodium 40 Mg/0.4 Ml Syringe) 40 mg SUBCUT Q24H [facility] Last Admin: 08/30/23 20:16 Dose: 40 mg Documented By: XIMENA Escitalopram Oxalate (Escitalopram Oxalate 20 Mg Tablet) 20 mg PO DAILY [facility] Last Admin: 08/31/23 08:27 Dose: 20 mg Documented By: SCOTT Fluticasone Propionate (Fluticasone Propionate Nasal 16 Gm Melbeta) 1 spray NOSTRIL-B BID [facility] Last Admin: 08/31/23 08:26 Dose: 1 spray Documented By: SCOTT Fluticasone/Umeclidinium/Vilanterol (Fluticasone/Umeclidinium/Vilanterol 200/62.5/25 Blst.W.Dev) 1 puff INHALE RDAILY [facility] Last Admin: 08/31/23 08:09 Dose: 1 puff Documented By: JANNY Folic Acid (Folic Acid 1 Mg Tablet) 1 mg PO DAILY [facility] Last Admin: 08/31/23 08:27 Dose: 1 mg Documented By: SCOTT Furosemide (Furosemide 20 Mg Tablet) 60 mg PO DAILY [facility]; Protocol Last Admin: 08/31/23 08:27 Dose: 60 mg Documented By: SCOTT Gabapentin (Gabapentin 300 Mg Capsule) 300 mg PO TID [facility] Last Admin: 08/31/23 08:27 Dose: 300 mg Documented By: SCOTT Glucose (Glucose Gel 15 Gm Gel..Gram.) 15 gm PO Q15M PRN; Protocol PRN Reason: per Hypoglycemia Standing Ord. Guaifenesin (Guaifenesin La 600 Mg Tab.Er.12h) 600 mg PO BID [facility] Last Admin: 08/31/23 08:27 Dose: 600 mg Documented By: SCOTT Azithromycin 500 mg/ Sodium (Chloride) 250 mls @ 125 mls/hr IV Q24H [facility] Stop: 08/31/23 22:14 Last Infusion: 08/31/23 01:36 Dose: Infused Documented By: XIMENA Insulin Human Lispro (Insulin Lispro 100 Unit/Ml 3 Ml Vial) 0 unit SUBCUT QIDACHS [facility]; Protocol Last Admin: 08/31/23 08:26 Dose: 2 unit Documented By: SCOTT Lactulose (Lactulose 20 Gm/30 Ml Solution) 20 gm PO Q2D@0900,1500,2100 [facility] Last Admin: 08/30/23 20:15 Dose: Not Given Documented By: XIMENA Non-Admin Reason: Patient Refused Levetiracetam (Levetiracetam 500 Mg Tablet) 500 mg PO BID [facility] Last Admin: 08/31/23 08:27 Dose: 500 mg Documented By: SCOTT Loratadine (Loratadine 10 Mg Tablet) 10 mg PO DAILY [facility] Last Admin: 08/31/23 08:27 Dose: 10 mg Documented By: SCOTT Magnesium Hydroxide (Milk Of Magnesia 30 Ml Oral.Susp) 30 ml PO DAILY PRN PRN Reason: Constipation Melatonin (Melatonin 3 Mg Tablet) 6 mg PO BEDTIME PRN PRN Reason: Insomnia Methylprednisolone Sodium Succinate (Methylprednisolone Sod Succ 40 Mg/Ml Vial) 40 mg IVPUSH Q12H [facility] Last Admin: 08/31/23 06:12 Dose: 40 mg Documented By: XIMENA Metoprolol Tartrate (Metoprolol Tartrate 25 Mg Tablet) 25 mg PO DAILY [facility]; Protocol Last Admin: 08/31/23 08:26 Dose: 25 mg Documented By: SCOTT Multivitamins/Vitamin C (Multivitamin Tablet) 1 tab PO DAILY [facility] Last Admin: 08/31/23 08:27 Dose: 1 tab Documented By: SCOTT Omeprazole (Omeprazole 20 Mg Capsule.Dr) 20 mg PO DAILY@0630 [facility] Last Admin: 08/31/23 06:12 Dose: 20 mg Documented By: XIMNEA Ondansetron HCl (Ondansetron Hcl 4 Mg/2 Ml Vial) 4 mg IVPUSH Q8H PRN PRN Reason: Nausea and Vomiting Oxycodone HCl (Oxycodone Hcl Immed Release 5 Mg Tablet) 5 mg PO Q4H PRN PRN Reason: Pain, Moderate(Pain Scale 4-6) Last Admin: 08/31/23 08:27 Dose: 5 mg Documented By: SCOTT Sodium Biphosphate/Sodium Phosphate (Sodium Phosphate,[place]-Dibasic 133 Ml Enema) 118 ml [place] DAILY PRN PRN Reason: Constipation Sodium Chloride (0.9 % Sodium Chloride Flush 3 Ml Syringe) 3 ml IVFLUSH QSHIFT [facility] Last Admin: 08/31/23 08:28 Dose: 3 ml Documented By: SCOTT Thiamine HCl (Thiamine Hcl 100 Mg Tablet) 100 mg PO DAILY [facility] Last Admin: 08/31/23 08:26 Dose: 100 mg Documented By: SCOTT Tizanidine HCl (Tizanidine Hcl 4 Mg Tablet) 2 mg PO Q8H PRN PRN Reason: Muscle Spasm Trazodone HCl (Trazodone Hcl 50 Mg Tablet) 50 mg PO BEDTIME [facility] Last Admin: 08/30/23 20:16 Dose: 50 mg Documented By: XIMENA Labs 08/30/23 06:20 08/30/23 06:20 Labs: Laboratory Results - last 24 hr 08/30/23 08/30/23 08/30/23 11:19 15:36 19:08 POC Glucose 253 H 205 H 167 H 08/31/23 07:04 POC Glucose 165 H Assessment and Plan (1) Chronic lung disease: Status: Acute (2) Acute on chronic respiratory failure with hypoxia and hypercapnia: Status: Acute Plan 77F PMH significant for?smoking-related COPD, chronic hypercarbic and hypoxic respiratory failure, alcohol use disorder, chronic back pain on chronic opioids, unspecified seizure disorder, CKD 3, GERD, and enucleated right eye who presented from SNF to the ED with?increased shortness of breath and dyspnea upon exertion. 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 BMI 40.7 Weight loss encouraged Full Code DVT Prophylaxis: Lovenox reason for continued hospitalization:still sob and wheezy Time Spent With Patient Time: Total time managing care of this patient today ____ minutes. Quality Stroke Does the patient have a stroke diagnosis?: No VTE Prior VTE?: No VTE Risk Level:: Medical - moderate - high VTE Device Contraindication: Treatment Not Indicated VTE Drug Contraindication: N/A - Med Ordered
[2023-08-31 10:59] LABS: Glucose, Whole Blood 191 mg/dL (60-115)
--- NOTE | 2023-08-31 14:38 | MHC.CM.PN ---
EMR reviewed and per MD rounds, pt is not medically cleared for D/C at this time, but will likely be ready for to D/C tomorrow. CM will continue to follow.
[2023-08-31 15:53] VITALS: BP 149/81; PULSE 84; RESP 20; TEMP 36.4; O2SAT 90
[2023-08-31 16:36] LABS: Glucose, Whole Blood 291 mg/dL (60-115)
[2023-08-31 20:00] VITALS: BP 157/86; PULSE 123; RESP 18; TEMP 37; O2SAT 90
[2023-08-31] MEDS: Enoxaparin Sodium 40 MG/0.4 ML SYRINGE SUBCUT (20:56)
[2023-08-31] MEDS: traZODone HCL 50 MG TABLET PO (20:57)
[2023-08-31 21:11] LABS: Glucose, Whole Blood 151 mg/dL (60-115)
[2023-09-01 03:14] VITALS: BP 146/61; PULSE 75; RESP 20; TEMP 37.1; O2SAT 92
[2023-09-01] MEDS: methylPREDNISolone Sod Succ 40 MG/ML VIAL IVPUSH (06:00)
[2023-09-01] MEDS: Omeprazole 20 MG CAPSULE.DR PO (06:00)
[2023-09-01 07:05] LABS: Glucose, Whole Blood 183 mg/dL (60-115)
[2023-09-01 07:09] VITALS: BP 180/70; PULSE 78; RESP 20; TEMP 36.6; O2SAT 98
[2023-09-01 07:26] LABS: Hematocrit 39.7 % (37.0-47.0); Hemoglobin 12.4 g/dl (12.0-16.0); Mean Corpuscular HGB Conc 31.2 g/dl (31.0-35.0); Mean Corpuscular Hemoglobin 27.4 pg (27.0-33.0); Mean Corpuscular Volume 87.6 fL (80.0-98.0); Mean Platelet Volume 11.4 fL (9.4-12.3); Red Blood Count 4.53 X10*6/uL (4.20-5.50); Red Cell Distribution Width 15.3 % (11.0-16.0); White Blood Count 3.2 X10*3/uL (4.8-10.8)
[2023-09-01 07:27] LABS: Platelet Count 35 X10*3/uL (160-400)
[2023-09-01] MEDS: Benzonatate 100 MG CAPSULE 200 MG PO (08:02)
[2023-09-01] MEDS: Metoprolol Tartrate 25 MG TABLET PO (08:02)
[2023-09-01 08:03] LABS: Anion Gap 13 (12-20); Blood Urea Nitrogen 31 mg/dL (9-16); Carbon Dioxide 38 mmol/L (22-29); Chloride 97 mmol/L (96-108); Creatinine Clr Calc Pharmacy 47.6; Estimated Glomerular Filt Rate 47; Glucose Fasting 200 mg/dL (60-99); Magnesium 2.1 mg/dL (1.6-2.6); Potassium 3.7 mmol/L (3.3-5.1); Sodium 144 mmol/L (135-145)
[2023-09-01] MEDS: Escitalopram Oxalate 20 MG TABLET PO (08:03)
[2023-09-01] MEDS: Loratadine 10 MG TABLET PO (08:03)
[2023-09-01] MEDS: Gabapentin 300 MG CAPSULE PO (08:03)
[2023-09-01] MEDS: Folic Acid 1 MG TABLET PO (08:03)
[2023-09-01] MEDS: levETIRAcetam 500 MG TABLET PO (08:03)
[2023-09-01] MEDS: Multivitamin TABLET 1 TAB PO (08:03)
[2023-09-01] MEDS: Acamprosate Calcium 333 MG TABLET.DR PO (08:03)
[2023-09-01] MEDS: Furosemide 20 MG TABLET 60 MG PO (08:03)
[2023-09-01] MEDS: guaiFENesin LA 600 MG TAB.ER.12H PO (08:03)
[2023-09-01] MEDS: Thiamine HCL 100 MG TABLET PO (08:03)
[2023-09-01] MEDS: 0.9 % Sodium Chloride Flush 3 ML SYRINGE IVFLUSH (08:04)
[2023-09-01] MEDS: Insulin Lispro 100 UNIT/ML 3 ML VIAL SUBCUT (08:04)
[2023-09-01] MEDS: Fluticasone Propionate Nasal 16 GM SPRAY 1 SPRAY NOSTRIL-B (08:06)
[2023-09-01] MEDS: Albuterol/Iprat 2.5/0.5MG 3 ML AMPUL.NEB INHALE ×2 (08:06→11:46)
[2023-09-01] MEDS: Fluticasone/Umeclidinium/Vilanterol 200/62.5/25 BLST.W.DEV 1 PUFF INHALE (08:06)
[2023-09-01 08:08] VITALS: PULSE 87; RESP 20; O2SAT 97
[2023-09-01] MEDS: Artificial Tears 15 ML DROPS 1 DROP EYE-BOTH (08:09)
[2023-09-01] MEDS: Lactulose 20 GM/30 ML SOLUTION PO (08:11)
--- NOTE | 2023-09-01 09:56 | P.DS_ITS ---
DS: Providers Provider Date of Service: 09/01/23 Date of admission: 08/28/23 20:26 Primary care physician: Melissa Celaya MD DS: Diagnosis Discharge Diagnosis (1) Chronic lung disease: Status: Acute (2) Acute on chronic respiratory failure with hypoxia and hypercapnia: Status: Acute DS: Summary Hospital Course Hospital Course: from initial hpi: 77-year-old female with a PMH significant for?smoking-related COPD, chronic hy percarbic and hypoxic respiratory failure, alcohol use disorder, chronic back pain on chronic opioids, unspecified seizure disorder, CKD 3, GERD, and enucleated right eye who presents from SNF to the ED with?increased shortness of breath and dyspnea upon exertion. Patient is a resident for the past 5 months of [facility] and [facility] and was last seen in the ED 4 days prior for similar symptoms of SOB/dyspnea. Patient with a long history of COPD exacerbations and acute on chronic hypoxic and hypercarbic respiratory failure, she was treated with DuoNebs, Mag sulfate, and IV steroids and sent back to facility after feeling better. Reports she felt a ?little improved? for a day or 2, but then symptoms worsened again starting yesterday. Patient's SOB and dyspnea were especially bad this morning and so she was sent back to the ED for re-evaluation. She reports being on 2-3 L NC at night, though occasionally will use her oxygen during the day if she is feeling particularly short of breath. Patient was found to be satting in the mid 80s by EMS on 3L NC. States she has had 2-3 episodes of nausea and vomiting, occasionally productive cough, and has had decreased p.o. intake due to not feeling like eating anything. Denies chest pain/pressure. No fever or chills. Denies belly pain. Endorses chronic back pain and chronic lower leg edema she thinks states is around her baseline. In the ED patient was afebrile but tachycardic up to 118, and tachypneic up to 25, satting as low as 87% on 3 L NC. Labs were significant for WBC 3.5, platelets 43, bicarb 31, random glucose 335. Electrolytes WNL. Renal and hepatic function baseline. Troponin 7.3. BNP essentially WNL at 105. VBG with pH 7.34, bicarb 41. CXR showed unchanged central bronchial wall thickening that could be seen in the context of small airway disease. EKG demonstrated sinus tachycardia without evidence of ST elevations or depressions. Pt was treated with DuoNebs, Mag sulfate, guaifenesin, Solu-Medrol. Pt will be admitted to the hospital for treatment and further evaluation of acute on chronic hypoxic and hypercarbic respiratory failure in the setting of COPD exacerbation. hospital course: Patient was admitted for acute on chronic hypercarbic and hypoxic respiratory failure in the setting of COPD with acute decompensation. She was treated with IV steroids, bronchodilators, azithromycin. She was weaned down to her baseline 2 L O2. Shortness of breath improved. Wheezing eventually improved. On discharge she will continue 5 more days of prednisone 40 mg daily. For chronic diastolic CHF she was continued on her home Lasix. 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 For epilepsy was continued on Keppra. For chronic back pain was continue oxycodone. Morbid obesity weight loss is encouraged. Patient is feeling better will be discharged home. Time Spent with Patient Time attestation: Total time managing care of this patient today ____ minutes. Discharge coordination time: Greater than 30 minutes Quality: Safe Use of Opioids Does Pt have an Active Cancer Diagnosis on the Problem List?: No Quality: Stroke Does the patient have a stroke diagnosis?: No Physical Exam Vital Signs: Vital Signs: Last Vital Signs Temp 97.8 F 09/01/23 07:09 Pulse 87 09/01/23 08:08 Resp 20 09/01/23 08:08 BP 180/70 H 09/01/23 07:09 Pulse Ox 98 09/01/23 07:09 O2 Del Method Nasal Cannula 09/01/23 07:09 O2 Flow Rate 2 09/01/23 07:09 FiO2 93 08/31/23 03:22 Oxygen Flow Rate 4 08/28/23 19:22 BMI result Body Mass Index 41.5 General: AO X 3, no acute distress Resp: CTA bilateral, no accessory muscles used CVS: S1,S2,RRR GI: soft, non tender, non distended Neuro: motor grossly intact, alert Psych: appropriate affect, appropriate insight DS: Data Data Completed and Pending Completed studies during hospitalization [Text1]: Procedures Assistance with Respiratory Ventilation, Less than 24 Consecutive Hours, Continuous Positive Airway Pressure (06/28/23) Labs on day of discharge: Laboratory Results - last 24 hr 08/31/23 08/31/23 08/31/23 10:56 16:27 21:01 WBC RBC Hgb Hct MCV MCH MCHC RDW Plt Count MPV Absolute Nucleated RBC Nucleated RBC % (auto) Sodium Potassium Chloride Carbon Dioxide Anion Gap BUN Creatinine Estim Creat Clear Calc Estimated GFR POC Glucose 191 H 291 H 151 H Fasting Glucose Calcium Magnesium 09/01/23 09/01/23 06:36 06:53 WBC 3.2 L RBC 4.53 Hgb 12.4 Hct 39.7 MCV 87.6 MCH 27.4 MCHC 31.2 RDW 15.3 Plt Count 35 L MPV 11.4 Absolute Nucleated RBC 0.000 Nucleated RBC % (auto) 0.0 Sodium 144 Potassium 3.7 Chloride 97 Carbon Dioxide 38 H Anion Gap 13 BUN 31 H Creatinine 1.13 Estim Creat Clear Calc 47.6 Estimated GFR 47 POC Glucose 183 H Fasting Glucose 200 H Calcium 9.0 Magnesium 2.1 Discharge Plan Discharge Anticipated Discharge Date/Time: 09/01/23 09:52 Patient Disposition: Home, Self-Care Discharge Diagnosis: copd Referrals: Melissa Celaya MD [Primary Care Provider] - 1 Week Discharge Medications: New prednisone 20 mg tablet 40 mg PO DAILY Qty: 10 0RF Continued multivitamin Tablet 1 tab PO DAILY trazodone 50 mg Tablet 50 mg PO BEDTIME cetirizine 10 mg Tablet 10 mg PO DAILY levetiracetam [Keppra] 500 mg Tablet 500 mg PO BID thiamine HCl (vitamin B1) 100 mg Tablet 100 mg PO DAILY alprazolam [Xanax] 0.25 mg Tablet 0.25 mg PO BID PRN (Reason: Anxiety) magnesium hydroxide [Milk of Magnesia] 400 mg/5 mL Suspension 30 ml PO DAILY PRN (Reason: Constipation) bisacodyl 10 mg Suppository 10 mg ID DAILY PRN (Reason: Constipation) pantoprazole 40 mg Tablet,Delayed Release (Dr/Ec) 40 mg PO DAILY@0630 lidocaine 5 % Adhesive Patch,Medicated 1 patch TOPICAL DAILY Rx Instructions: apply to hips topically; remove after 12 hrs Fleet Enema 19-7 gram/118 mL Enema 118 ml ID DAILY PRN (Reason: Constipation) gabapentin 300 mg Capsule 300 mg PO TID folic acid 1 mg Tablet 1 mg PO DAILY bisacodyl [Dulcolax (bisacodyl)] 5 mg Tablet,Delayed Release (Dr/Ec) 30 mg PO BEDTIME furosemide 20 mg Tablet 60 mg PO DAILY nystatin 100,000 unit/gram Powder 1 appl TOPICAL BID Rx Instructions: apply to [place] albuterol sulfate [ProAir HFA] 90 mcg/actuation Hfa Aerosol Inhaler 2 puff INHALATION BID fluticasone propionate [Flonase Allergy Relief] 50 mcg/actuation [place],Suspension 1 spray INTRANASAL BID Rx Instructions: administer into each nostril oxycodone 5 mg Tablet 5 mg PO Q4H PRN (Reason: Moderate Pain (Scale Score 5-6)) escitalopram oxalate 20 mg Tablet 20 mg PO DAILY Artificial Tears (PF) Dropperette 1 drp OPHTHALMIC (EYE) TID Rx Instructions: 1 drop into both eyes metoprolol tartrate 25 mg Tablet 25 mg PO DAILY acamprosate 333 mg Tablet,Delayed Release (Dr/Ec) 333 mg PO TID lactulose 10 gram/15 mL Solution 30 ml PO Q2D@0900,1500,2100 Muscle Rub 15-10 % Cream 1 appl TOPICAL DAILY PRN (Reason: neck pain) Rx Instructions: apply to neck diclofenac sodium 1 % Gel 4 g TOPICAL QID PRN (Reason: Pain) Rx Instructions: apply to hips naloxone [Narcan] 4 mg/actuation [place],Non-Aerosol 4 mg INTRANASAL Q3M PRN (Reason: Opioid Overdose) Rx Instructions: spray 1 dose into ONE nostril; alternate nostrils w each dose until help arrives Trelegy Ellipta 200-62.5-25 mcg Blister With Device 1 inh INHALATION DAILY ipratropium-albuterol 0.5 mg-3 mg(2.5 mg base)/3 mL Solution For Nebulization 3 ml INHALATION Q8H PRN (Reason: Shortness Of Breath Or Wheezing) tizanidine 2 mg Tablet 2 mg PO Q8H PRN (Reason: Muscle Spasm) benzonatate 100 mg Capsule 200 mg PO TID Qty: 30 0RF guaifenesin [Mucinex] 600 mg Tablet Extended Release 12hr 600 mg PO BID Qty: 20 0RF ipratropium-albuterol 0.5 mg-3 mg(2.5 mg base)/3 mL solution for nebulization 3 ml inhalation Q8H Discontinued prednisone 10 mg tablet See Taper PO DIRECTED Qty: 30 0RF Taper: Prednisone 40 mg daily for 3 Days and 0 Hour 30 mg daily for 3 Days and 0 Hour 20 mg daily for 3 Days and 0 Hour 10 mg daily for 3 Days and 0 Hour Rx Instructions: see taper instructions Prednisone 40mg dailyx4,[id number] Discharge Orders: Discharge Order (Routine); Ordered 09/01/23 Ordered By: Jovany Poe Diet: Advance to usual diet Activity on Discharge: As tolerated Stand Alone Forms: Patient Portal Discharge page Care Plan Goals: recovery Health Concerns: copd Plan of Treatment: 5 more days prednisone Assessment: see above
--- NOTE | 2023-09-01 10:45 | MHC.CM.PN ---
Second IMM given 09/01. Pt medically cleared for D/C back to [facility] today. Transport set up via [facility].
[2023-09-01 11:03] LABS: Glucose, Whole Blood 176 mg/dL (60-115)
[2023-09-01 11:46] VITALS: PULSE 78; RESP 20; O2SAT 100
== END 2023-09-01 12:47 | disposition home or self-care (01) | DRG 190 ==
LOC: HO.ED 20:09 → HO.EDOVER 21:13 → HO.IMC 08-29 23:00
PROVIDERS: Nurse Practitioner Acute Care; Admitting Provider Student in an Organized Health Care Education/Training Program; Emergency Provider Internal Medicine; PCP Internal Medicine; Visit Provider Internal Medicine
DX: J44.1 Chronic obstructive pulmonary disease with (acute) exacerbation (principal); J96.21 Acute and chronic respiratory failure with hypoxia; J96.22 Acute and chronic respiratory failure with hypercapnia; I50.32 Chronic diastolic (congestive) heart failure; Z68.41 Body mass index [BMI] 40.0-44.9, adult; D61.818 Other pancytopenia; E66.01 Morbid (severe) obesity due to excess calories; Z99.81 Dependence on supplemental oxygen; G40.909 Epilepsy, unspecified, not intractable, without status epilepticus; M54.9 Dorsalgia, unspecified; G47.00 Insomnia, unspecified; G89.29 Other chronic pain; K70.30 Alcoholic cirrhosis of liver without ascites; F17.210 Nicotine dependence, cigarettes, uncomplicated; Z20.822 Contact with and (suspected) exposure to COVID-19; Z23 Encounter for immunization; Z71.6 Tobacco abuse counseling; Z86.19 Personal history of other infectious and parasitic diseases; Z79.899 Other long term (current) drug therapy
CPT/HCPCS: 36415; 71045; 80048; 80053; 82803; 82947; 83036; 83735; 83880; 84484; 85025; 85027; 85610; 87635; 90686; 93005; 94640; 97161; 99285; J0456; J1650; J2920; J3475

== ENCOUNTER → 2023-08-28 20:26 | Outpatient (BNV) | payer MEDICARE, MEDICAID, SELFPAY | PROVIDERS: Admitting Provider Student in an Organized Health Care Education/Training Program; Emergency Provider Internal Medicine; PCP Internal Medicine; Visit Provider Student in an Organized Health Care Education/Training Program | DX: J96.21 Acute and chronic respiratory failure with hypoxia (principal); J96.22 Acute and chronic respiratory failure with hypercapnia; J98.4 Other disorders of lung | CPT/HCPCS: 99223; 99232; 99239 ==

== ENCOUNTER 2023-09-20 13:14 | Emergency (ER) | payer MEDICARE, MEDICAID, SELFPAY ==
--- NOTE | 2023-09-20 | ECG_ITS ---
Test Reason : LAB CHANGES Blood Pressure : / mmHG Vent. Rate : 076 BPM Atrial Rate : 076 BPM P-R Int : 164 ms QRS Dur : 090 ms QT Int : 416 ms P-R-T Axes : 052 -06 045 degrees QTc Int : 468 ms Sinus rhythm with occasional Premature ventricular complexes Otherwise normal ECG When compared with ECG of 28-AUG-2023 20:33, Premature ventricular complexes are now Present Vent. rate has decreased BY 42 BPM Referred By: Generic ED Physician Electronically Signed By:MARTIN LAW MD
--- NOTE | ~2023-09-20 | XR_ITS ---
EXAMINATION: XR CHEST CLINICAL INFORMATION: Difficulty breathing and increasing peripheral edema COMPARISON: 08/28/2023 TECHNIQUE: 2 views of the chest were obtained. FINDINGS: Mild cardiomegaly with slight distention of the pulmonary vessels and a hint of edema. electric distribution checker leads present. XR/XR chest 2V IMPRESSION: Mild congestive change.
[2023-09-20 13:23] VITALS: BP 124/58; BP 134/76; PULSE 71; PULSE 72; RESP 16; TEMP 36.6; O2SAT 93; O2SAT 97; BMI 43.1
--- NOTE | 2023-09-20 14:54 | ED.GENADULT ---
HPI - General Adult General Chief complaint: General Medical Stated complaint: WT GAIN,SOB FROM SNF PER EMS Time Seen by Provider: 09/20/23 14:53 Source: patient, EMS, RN notes reviewed and old records reviewed Mode of arrival: EMS Limitations: no limitations History of Present Illness HPI narrative: 77 year old female with pmhx significant for COPD, asthma, chronic smoker, diastolic HF, diabetes, cirrhosis, hepatitis-C, hypoxic hypercapnic respiratory failure requiring BIPAP, presents to the ED today via EMS from the [facility] for evaluation of lower extremity edema. States that the nurse at her senior living home noticed swelling to her lower extremities this morning and wanted her to be evaluated in the ED today. Patient states that her lower leg swelling is typical for her. It has worsened over the last few weeks and admits to being evaluated by her physician for this. States her Lasix was increased from 5 mg to 10 mg yesterday for this. Took dose of lasix this morning. Admits to being short of breath however states this is no different from her baseline as she has COPD. States she used to wear oxygen at baseline however was weaned off of this 2 months ago by her physician. Denies fever, chills, dizziness, headache, chest pain, N/V, abdominal pain, rashes. Denies recent travel/ long car rides. Denies sick contacts. Per EMS, patient sating 97 on RA en route to ED. POC 326. VS WNL. Related Data Home Medications Medication Instructions Recorded Confirmed acamprosate 333 mg tablet,delayed 333 mg PO TID 06/28/23 08/28/23 release albuterol sulfate 90 mcg/actuation 2 puff inhalation BID 06/28/23 08/28/23 aerosol inhaler (ProAir HFA) alprazolam 0.25 mg tablet (Xanax) 0.25 mg PO BID PRN Anxiety 06/28/23 08/28/23 bisacodyl 10 mg rectal suppository 10 mg RI DAILY PRN Constipation 06/28/23 08/28/23 bisacodyl 5 mg tablet,delayed 30 mg PO BEDTIME 06/28/23 08/28/23 release (Dulcolax (bisacodyl)) cetirizine 10 mg tablet 10 mg PO DAILY 06/28/23 08/28/23 dextran 70-hypromellose eye drops 1 drp ophthalmic (eye) TID 06/28/23 08/28/23 in a dropperette (Artificial Tears (PF) drops in a dropperette) diclofenac sodium 1 % topical gel 4 g topical QID PRN Pain 06/28/23 08/28/23 escitalopram oxalate 20 mg tablet 20 mg PO DAILY 06/28/23 08/28/23 fluticasone fur. 200 mcg-umeclid 1 inh inhalation DAILY 06/28/23 08/28/23 62.5 mcg-vilant 25 mcg inhalat.powder (Trelegy Ellipta) fluticasone propionate 50 1 spray intranasal BID 06/28/23 08/28/23 mcg/actuation nasal spray,suspension (Flonase Allergy Relief) folic acid 1 mg tablet 1 mg PO DAILY 06/28/23 08/28/23 furosemide 20 mg tablet 60 mg PO DAILY 06/28/23 08/28/23 gabapentin 300 mg capsule 300 mg PO TID 06/28/23 08/28/23 ipratropium 0.5 mg-albuterol 3 mg 3 ml inhalation Q8H PRN Shortness 06/28/23 08/28/23 (2.5 mg base)/3 mL nebulization Of Breath Or Wheezing soln lactulose 10 gram/15 mL oral 30 ml PO Q2D@0900,1500,2100 06/28/23 08/28/23 solution levetiracetam 500 mg tablet 500 mg PO BID 06/28/23 08/28/23 (Keppra) lidocaine 5 % topical patch 1 patch topical DAILY 06/28/23 08/28/23 magnesium hydroxide 400 mg/5 mL 30 ml PO DAILY PRN Constipation 06/28/23 08/28/23 oral suspension (Milk of Magnesia) methyl salicylate 15 %-menthol 10 1 appl topical DAILY PRN neck pain 06/28/23 08/28/23 % topical cream (Muscle Rub) metoprolol tartrate 25 mg tablet 25 mg PO DAILY 06/28/23 08/28/23 multivitamin 1 tab PO DAILY 06/28/23 08/28/23 naloxone 4 mg/actuation nasal 4 mg intranasal Q3M PRN Opioid 06/28/23 08/28/23 spray (Narcan) Overdose nystatin 100,000 unit/gram topical 1 appl topical BID 06/28/23 08/28/23 powder oxycodone 5 mg tablet 5 mg PO Q4H PRN Moderate Pain 06/28/23 08/28/23 (Scale Score 5-6) pantoprazole 40 mg tablet,delayed 40 mg PO DAILY@0630 06/28/23 08/28/23 release sodium phosphates 19 gram-7 118 ml RI DAILY PRN Constipation 06/28/23 08/28/23 gram/118 mL enema (Fleet Enema) thiamine HCl (vitamin B1) 100 mg 100 mg PO DAILY 06/28/23 08/28/23 tablet tizanidine 2 mg tablet 2 mg PO Q8H PRN Muscle Spasm 06/28/23 08/28/23 trazodone 50 mg tablet 50 mg PO BEDTIME 06/28/23 08/28/23 ipratropium 0.5 mg-albuterol 3 mg 3 ml inhalation Q8H 08/29/23 08/29/23 (2.5 mg base)/3 mL nebulization soln Previous Rx's Medication Instructions Recorded benzonatate 100 mg capsule 200 mg (2 x 100 mg) PO TID #30 caps 07/01/23 guaifenesin 600 mg tablet, 600 mg PO BID #20 tabs 07/01/23 extended release 12 hr (Mucinex) prednisone 20 mg tablet 40 mg (2 x 20 mg) PO DAILY #10 tabs 09/01/23 Allergies Allergy/AdvReac Type Severity Reaction Status Date / Time No Known Allergies Allergy Verified 09/20/23 15:03 Review of Systems Review of Systems: Constitutional: No fever, chills, fatigue, night sweats, weight changes ENT/Mouth: No ear pain, hearing loss, nasal congestion, sinus pain, rhinorrhea, sore throat Eyes: No eye pain, swelling, redness, vision changes, discharge Cardio: No chest pain, palpitations, RODRIGUEZ, orthopnea, +peripheral edema Pulm: No SOB, cough, sputum, wheezing, dyspnea, hemoptysis GI: No nausea, vomiting, hematemesis, abdominal pain, diarrhea, constipation, hematochezia, melena : No irregular bleeding, dysuria, frequency, urgency, hesitancy, hematuria, flank pain, urinary flow changes, urinary incontinence or retention MSK: No back pain, neck pain, joint pain, myalgias Skin: No lesions, rashes Neuro: No weakness, numbness, paresthesias, LOC, dizziness, headache All other systems reviewed and are negative. [facility] Past Medical History Attestation statement: The following information was validated with the patient. Source: old records reviewed and nursing notes reviewed Medical History Hepatitis C Splenomegaly Cirrhosis Type 2 diabetes mellitus Morbid obesity CHF (congestive heart failure) Social History Social History Household Members: None Housing: Detention Do you presently have visiting nurse or other home services: No Alcohol intake: former Patient Tobacco Use Status: Current everyday Tobacco user Tobacco use type: Cigarette Cigarettes Per Day: 10 Years Smoked: 40 Smoked in Last 30 Days: No Use of substances other than those prescribed or required for medical reasons: No Advance Directives: Yes Advance Directives on File: Yes Advance Directives Date on File: 08/29/23 service: No Physical Exam ED Vital Signs: Vital Signs - 24 hr 09/20/23 13:23 09/20/23 15:40 09/20/23 18:23 Temperature 97.8 F 98.3 F 98.0 F Pulse Rate 71 70 72 Respiratory Rate 16 15 16 Blood Pressure 124/58 L 123/68 142/59 H Pulse Oximetry 93 93 94 Oxygen Delivery Method Room Air Room Air Room Air 09/20/23 20:00 09/20/23 22:00 Temperature Pulse Rate 80 82 Respiratory Rate 16 16 Blood Pressure 125/44 L 119/51 L Pulse Oximetry 95 95 Oxygen Delivery Method Room Air Room Air BMI result Body Mass Index 43.1 Vital signs stable. O2 Sat noted to be 93 on RA, history of COPD, this is baseline for her Const General: cooperative, comfortable, no acute distress, alert and awake Nutritional Appearance: obese Orientation/consciousness: patient oriented x3 Limitations: no limitations HENMT Head: Yes normal to inspection Ears: hearing grossly normal bilaterally General nose exam: Normal external nose present Eyes Conjunctivae: conjunctivae normal Sclerae: sclerae normal Pupils: Equal, round and reactive pupils present Neck Neck: Yes normal visual inspection and Yes no JVD Resp Effort & Inspection: normal respiratory effort, able to speak in complete sentences and no respiratory distress Auscultation: clear to auscultation bilaterally, no crackles and no rales Cardio Rate: regular rate Rhythm: regular rhythm Peripheral pulses: radial pulses present and dorsalis pedis present GI Inspection: Yes normal to inspection Palpation (GI): Soft to palpation, nontender, no guarding, hepatosplenomegaly present and No Ascites present Percussion: No Fluid wave present Auscultation: normal bowel sounds Skin General skin exam: no rashes or lesions noted and no jaundice Neuro Other: + unable to assess gait as patient is wheelchair-bound at baseline + strength 4/5 to b/l LE General: patient oriented x3 and moves all extremities Cranial nerves: Yes CN's II-XII intact bilaterally and Yes Equal, round and reactive pupils present Extrem Other: + 2+ pitting edema to bilateral lower extremities + palpable PT and DP pulses bilaterally + no calf tenderness General: Yes normal to inspection and Yes full ROM Course Course Course Narrative: 1628-- CBC without leukocytosis. Potassium noted to be low at 3, magnesium within normal limits > will replete. BNP 229 > when compared to prior BNP is over the last few months, BNP has previously been noted to be [id number]. I do not suspect that patient is in congestive heart failure at this time. COVID and influenza negative > unlikely viral syndrome. CXR showing mild congestive changes likely secondary to heart failure. Patient's Lasix was increased yesterday and she is not experiencing any worsening shortness of breath. 1720-- Discussed lab and imaging results with patient. She continues to state that her shortness of breath feels like her baseline secondary to her COPD. She tells me that she was taken off 2 L of O2 at her senior living home 2 months ago and has not had complications since. I do not feel that the patient is in respiratory failure. I discussed need to replete potassium and she is agreeable. As patient's workup is unremarkable and peripheral edema has remained stable, I feel comfortable discharging her home with plan to continue 10 mg of Lasix daily. I also discussed the need to repeat potassium levels in 1-[address] this on discharge paperwork and informed patient to let nursing staff know. She is agreeable with this plan. All questions answered at this time. 1730-- patient's vital signs have remained stable throughout my shift. Sign out given to my colleague, Lary MARADIAGA pending potassium repletion and disposition. Reevaluation(s) Reevaluation #1: Patient given sign out to me pending IV potassium repletion, repeat chemistry revealing normalized potassium level. Patient feeling well and would like to be discharged home. Given return precautions. Patient stable for discharge. Time: 21:58 Medications Administered Discontinued Medications Generic Name Dose Route Start Last Admin Trade Name Jose Raulq PRN Reason Stop Dose Admin Potassium Chloride 10 meq in 100 mls @ 100 mls/hr 09/20/23 17:15 09/20/23 20:04 Potassium Chloride/H20 IV 09/20/23 19:14 Infused Q1H SCOUT Infusion Medical Decision Making Medical Decision Making [facility] Narrative: 77 year old female with pmhx significant for COPD, asthma, chronic smoker, diastolic HF, diabetes, cirrhosis, hepatitis-C, hypoxic hypercapnic respiratory failure requiring BIPAP, presents to the ED today via EMS from the [facility] for evaluation of lower extremity edema. Vital signs notable for O2 saturation of 93 on room air however upon review of previous vitals, this has been patient's baseline as she has COPD. There are no signs of respiratory distress. There is normal effort of breathing. Lungs are clear to auscultation bilaterally. RRR. No JVD. Obese abdomen, soft, NT/ND, no fluid wave. No hepatojugular reflux. There is 2+ pitting edema noted to b/l lower extremities. Palpable DP/PT pulses bilaterally. Unable to assess gait as patient is wheelchair-bound at baseline. Clinical concern for heart failure, congestive heart failure, pneumonia, viral syndrome, chronic venous stasis. Lower suspicion for COPD or asthma exacerbation. Unlikely respiratory failure. Unlikely ACS, PE/ DVT. Plan at this time is EKG, basic labs, chest x-ray, BNP, re-evaluation. Differential Diagnosis Differential Diagnoses: The differential diagnosis associated with the presentation includes As above. Admission/Observation Consideration of admission/observation: Escalation of care including admission/observation considered In this 77-year-old patient with history of CHF, admission was considered. Lab Data [facility] Lab Attestation statement: I reviewed the patient's lab results. As above. 09/20/23 15:50 09/20/23 20:49 Labs: Lab Results 09/20/23 09/20/23 Range/Units 15:50 20:49 WBC 6.1 (4.8-10.8) X10*3/uL RBC 4.13 L (4.20-5.50) X10*6/uL Hgb 11.3 L (12.0-16.0) g/dl Hct 37.0 (37.0-47.0) % MCV 89.6 (80.0-98.0) fL MCH 27.4 (27.0-33.0) pg MCHC 30.5 L (31.0-35.0) g/dl RDW 16.3 H (11.0-16.0) % Plt Count 37 L (160-400) X10*3/uL MPV 12.7 H (9.4-12.3) fL Immature Gran % (Auto) 1.3 H (0.0-0.4) % Neut % (Auto) 79.2 H (45-73) % Lymph % (Auto) 8.3 L (20-40) % [place] % (Auto) 10.3 (2-11) % Eos % (Auto) 0.7 (0-4) % Baso % (Auto) 0.2 (0-2) % Lymph # (Auto) 0.5 L (1.2-4.9) X10*3/uL [place] # (Auto) 0.6 (0.1-1.2) X10*3/uL Eos # (Auto) 0.0 (0.0-0.4) X10*3/uL Baso # (Auto) 0.0 (0.0-0.2) X10*3/uL Abs Immat Gran (auto) 0.08 H (0.00-0.03) X10*3/uL Absolute Neuts (auto) 4.9 (2.0-8.3) x10*3/uL Absolute Nucleated RBC 0.000 (0.0-0.012) X10*3/uL Nucleated RBC % (auto) 0.0 (0.0-0.2) /100WBC Sodium 144 149 H (135-145) mmol/L Potassium 3.0 L 4.3 D (3.3-5.1) mmol/L Chloride 100 105 (96-108) mmol/L Carbon Dioxide 39 H 36 H (22-29) mmol/L Anion Gap 8 L 12 (12-20) BUN 13 12 (9-16) mg/dL Creatinine 1.07 0.99 (0.5-1.4) mg/dL Estim Creat Clear Calc 51.4 55.6 Estimated GFR 50 55 Random Glucose 177 H 206 H (60-115) mg/dL Calcium 8.3 L D 8.3 L (8.4-10.2) mg/dL Magnesium 1.8 (1.6-2.6) mg/dL Total Bilirubin 1.2 H 1.5 H (0.0-1.0) mg/dL AST 24 23 (5-31) U/L ALT 10 12 (0-31) U/L Alkaline Phosphatase 82 79 (39-117) U/L B-Natriuretic Peptide 229 H (<100) pg/mL Total Protein 5.7 L 5.7 L (6.5-8.0) g/dL Albumin 2.9 L 2.9 L (3.5-5.0) g/dL Lipase 12 (8-78) U/L Influenza Type A (PCR) NEGATIVE (Negative) Influenza Type B (PCR) NEGATIVE (Negative) RSV RNA Qual (PCR) NEGATIVE (Negative) SARS-CoV-2 RNA (RT-PCR) NEGATIVE (Negative) Independent Interpretation I performed an independent interpretation of an: EKG and Plain X-Ray Interpretation: EKG showing sinus rhythm with occasional PVC, QT 416, QTC 468, no acute ischemic changes or ST elevations. Chest x-ray showing enlarged cardiac silhouette, no signs of infiltrates or consolidations to suggest a pneumonia, agree with radiologist's interpretation. Radiology Impression Discussion of test interpretation with radiology: I have reviewed the radiologist's reading. Radiologist Impression: XR chest 2V IMPRESSION: Mild congestive change. Independent Historian Clinical information obtained from an independent historian. History obtained from or confirmed by: EMS External Record Review External record reviewed: Inpatient record, Office record, Outpatient record, Prior outpatient labs, Prior outpatient radiology, Primary care record and Outside ED record Tests considered The following testing was considered but not selected: I considered ordering troponin however patient denies symptoms of chest pain, worsening shortness of breath, dizziness, diaphoresis. I do not believe that it is warranted as this time as I do not suspect ACS. Chronic Conditions Patient?s care impacted by: Diabetes and Other (congestive heart failure) Critical Care Time Critical Care Time Critical Care Time: No Discharge Plan Discharge Clinical Impression: Peripheral edema, Hypokalemia Patient Disposition: Home, Self-Care Instructions: Hypokalemia (ED) Additional Instructions: Your labs today showed a low potassium. This was repleted in the emergency department. You need to follow-up with nurse at your senior living home regarding follow-up potassium levels within the next 1-3 days. Your lasix was recently increased from 5mg to 10mg. Continue taking lasix 10mg daily for the swelling in your legs. Follow up with your primary care physician as planned. Return to the emergency department if symptoms persist or worsen. The case of an emergency call 911. Prescriptions: No Action multivitamin Tablet 1 tab PO DAILY trazodone 50 mg Tablet 50 mg PO BEDTIME cetirizine 10 mg Tablet 10 mg PO DAILY levetiracetam [Keppra] 500 mg Tablet 500 mg PO BID thiamine HCl (vitamin B1) 100 mg Tablet 100 mg PO DAILY alprazolam [Xanax] 0.25 mg Tablet 0.25 mg PO BID PRN (Reason: Anxiety) magnesium hydroxide [Milk of Magnesia] 400 mg/5 mL Suspension 30 ml PO DAILY PRN (Reason: Constipation) bisacodyl 10 mg Suppository 10 mg RI DAILY PRN (Reason: Constipation) pantoprazole 40 mg Tablet,Delayed Release (Dr/Ec) 40 mg PO DAILY@0630 lidocaine 5 % Adhesive Patch,Medicated 1 patch TOPICAL DAILY Rx Instructions: apply to hips topically; remove after 12 hrs Fleet Enema 19-7 gram/118 mL Enema 118 ml RI DAILY PRN (Reason: Constipation) gabapentin 300 mg Capsule 300 mg PO TID folic acid 1 mg Tablet 1 mg PO DAILY bisacodyl [Dulcolax (bisacodyl)] 5 mg Tablet,Delayed Release (Dr/Ec) 30 mg PO BEDTIME furosemide 20 mg Tablet 60 mg PO DAILY nystatin 100,000 unit/gram Powder 1 appl TOPICAL BID Rx Instructions: apply to periarea albuterol sulfate [ProAir HFA] 90 mcg/actuation Hfa Aerosol Inhaler 2 puff INHALATION BID fluticasone propionate [Flonase Allergy Relief] 50 mcg/actuation [place],Suspension 1 spray INTRANASAL BID Rx Instructions: administer into each nostril oxycodone 5 mg Tablet 5 mg PO Q4H PRN (Reason: Moderate Pain (Scale Score 5-6)) escitalopram oxalate 20 mg Tablet 20 mg PO DAILY Artificial Tears (PF) Dropperette 1 drp OPHTHALMIC (EYE) TID Rx Instructions: 1 drop into both eyes metoprolol tartrate 25 mg Tablet 25 mg PO DAILY acamprosate 333 mg Tablet,Delayed Release (Dr/Ec) 333 mg PO TID lactulose 10 gram/15 mL Solution 30 ml PO Q2D@0900,1500,2100 Muscle Rub 15-10 % Cream 1 appl TOPICAL DAILY PRN (Reason: neck pain) Rx Instructions: apply to neck diclofenac sodium 1 % Gel 4 g TOPICAL QID PRN (Reason: Pain) Rx Instructions: apply to hips naloxone [Narcan] 4 mg/actuation [place],Non-Aerosol 4 mg INTRANASAL Q3M PRN (Reason: Opioid Overdose) Rx Instructions: spray 1 dose into ONE nostril; alternate nostrils w each dose until help arrives Trelegy Ellipta 200-62.5-25 mcg Blister With Device 1 inh INHALATION DAILY ipratropium-albuterol 0.5 mg-3 mg(2.5 mg base)/3 mL Solution For Nebulization 3 ml INHALATION Q8H PRN (Reason: Shortness Of Breath Or Wheezing) tizanidine 2 mg Tablet 2 mg PO Q8H PRN (Reason: Muscle Spasm) benzonatate 100 mg Capsule 200 mg PO TID Qty: 30 0RF guaifenesin [Mucinex] 600 mg Tablet Extended Release 12hr 600 mg PO BID Qty: 20 0RF ipratropium-albuterol 0.5 mg-3 mg(2.5 mg base)/3 mL solution for nebulization 3 ml inhalation Q8H prednisone 20 mg tablet 40 mg PO DAILY Qty: 10 0RF Interventions: ED Discharge Assessment Last Done: 09/20/23 22:45 Discharge Date/Time: 09/21/23 00:26
--- NOTE | 2023-09-20 15:17 | PC.NURSE ---
lATE ENTRY: 1345--PT A+O X3, VSS. PT FROM [facility] VIA AMBULANCE WITH C/O SOB ON EXERTION. SHE HAS HX OF COPD, ASTHMA AND REPORTS THAT HER. LASIX DOSE WAS INCREASED YESTERDAY. SHE ALSO SAID THAT THE NURSE AT THE FACILITY HAD CONCERNS OF A LARGE AMOUNT OF WEIGHT LOSS IN A SHORT PERIOD OF TIME. PT USED TO WEAR O2 BUT WAS WEANED OFF. SHE WAS TREATED HERE LAST MONTH FOR THE SAME THING.
[2023-09-20 15:40] VITALS: BP 123/68; PULSE 70; RESP 15; TEMP 36.8; O2SAT 93
[2023-09-20 15:54] LABS: MANUAL DIFF FLAG NO
[2023-09-20 16:04] LABS: Basophils Percent Auto 0.2 % (0-2); Hemoglobin 11.3 g/dl (12.0-16.0); PLT CLUMP 1; SCAN SMEAR FLAG 1
[2023-09-20 16:06] LABS: Eosinophils Percent Auto 0.7 % (0-4); Imm Gran Abs Auto 0.08 X10*3/uL (0.00-0.03); Imm Gran Pct Auto 1.3 % (0.0-0.4); Lymphocytes Absolute Auto 0.5 X10*3/uL (1.2-4.9); Lymphocytes Percent Auto 8.3 % (20-40); Mean Corpuscular HGB Conc 30.5 g/dl (31.0-35.0); Mean Corpuscular Hemoglobin 27.4 pg (27.0-33.0); Mean Corpuscular Volume 89.6 fL (80.0-98.0); Mean Platelet Volume 12.7 fL (9.4-12.3); Monocytes Absolute Auto 0.6 X10*3/uL (0.1-1.2); Monocytes Percent Auto 10.3 % (2-11); Neutrophils Absolute Auto 4.9 x10*3/uL (2.0-8.3); Neutrophils Percent Auto 79.2 % (45-73); Red Blood Count 4.13 X10*6/uL (4.20-5.50); Red Cell Distribution Width 16.3 % (11.0-16.0)
[2023-09-20 16:13] LABS: Alanine Aminotransferase 10 U/L (0-31); Albumin Level 2.9 g/dL (3.5-5.0); Alkaline Phosphatase 82 U/L (39-117); Anion Gap 8 (12-20); Aspartate Amino Transferase 24 U/L (5-31); Bilirubin Total 1.2 mg/dL (0.0-1.0); Blood Urea Nitrogen 13 mg/dL (9-16); Calcium 8.3 mg/dL (8.4-10.2); Carbon Dioxide 39 mmol/L (22-29); Chloride 100 mmol/L (96-108); Creatinine Clr Calc Pharmacy 51.4; Estimated Glomerular Filt Rate 50; Glucose Random 177 mg/dL (60-115); Lipase 12 U/L (8-78); Magnesium 1.8 mg/dL (1.6-2.6); Sodium 144 mmol/L (135-145); Total Protein 5.7 g/dL (6.5-8.0)
[2023-09-20 16:15] LABS: Platelet Count 37 X10*3/uL (160-400); White Blood Count 6.1 X10*3/uL (4.8-10.8)
[2023-09-20 16:19] LABS: B Type Natriuretic Peptide 229 pg/mL (<100)
[2023-09-20 16:34] LABS: Influenza A PCR NEGATIVE (Negative); Influenza B PCR NEGATIVE (Negative); Resp Syncy Virus RNA Qual PCR NEGATIVE (Negative); SARS COV2 PCR INHOUSE NEGATIVE (Negative)
[2023-09-20] MEDS: Potassium Chloride/H20 10 MEQ/100 ML PIGGYBACK 100 MEQ IV ×2 (17:32→19:04)
[2023-09-20 18:23] VITALS: BP 142/59; PULSE 72; RESP 16; TEMP 36.7; O2SAT 94
--- NOTE | 2023-09-20 19:05 | PC.NURSE ---
this rn assumed care of pt. pt resting in stretcher comfortably, pt denies pain and SOB at this time. second bag of potassium hung and running. pt normal sinus on tele [phone].
[2023-09-20 20:00] VITALS: BP 125/44; PULSE 80; RESP 16; O2SAT 95
[2023-09-20 21:09] LABS: Alanine Aminotransferase 12 U/L (0-31); Albumin Level 2.9 g/dL (3.5-5.0); Alkaline Phosphatase 79 U/L (39-117); Anion Gap 12 (12-20); Aspartate Amino Transferase 23 U/L (5-31); Bilirubin Total 1.5 mg/dL (0.0-1.0); Blood Urea Nitrogen 12 mg/dL (9-16); Calcium 8.3 mg/dL (8.4-10.2); Carbon Dioxide 36 mmol/L (22-29); Chloride 105 mmol/L (96-108); Creatinine Clr Calc Pharmacy 55.6; Estimated Glomerular Filt Rate 55; Glucose Random 206 mg/dL (60-115); Potassium 4.3 mmol/L (3.3-5.1); Sodium 149 mmol/L (135-145); Total Protein 5.7 g/dL (6.5-8.0)
[2023-09-20 22:00] VITALS: BP 119/51; PULSE 82; RESP 16; O2SAT 95
--- NOTE | 2023-09-20 22:50 | PC.NURSE ---
Pt placed on bedpan per request. Staff assist with clothing Pt. Pt given ice cream per request.
--- NOTE | 2023-09-21 00:20 | PC.NURSE ---
ems at bedside to transport pt back to rehab facility. report given to nurse at rehab facility- [facility]
== END 2023-09-21 00:26 | disposition home or self-care (01) ==
PROVIDERS: Physician Assistant Medical; Emergency Provider Emergency Medicine
DX: R60.0 Localized edema (principal); E87.6 Hypokalemia; Z20.822 Contact with and (suspected) exposure to COVID-19; Z20.828 Contact with and (suspected) exposure to other viral communicable diseases; R06.02 Shortness of breath; J44.9 Chronic obstructive pulmonary disease, unspecified; B19.20 Unspecified viral hepatitis C without hepatic coma; E11.9 Type 2 diabetes mellitus without complications; F17.210 Nicotine dependence, cigarettes, uncomplicated; E66.9 Obesity, unspecified; Z68.41 Body mass index [BMI] 40.0-44.9, adult
CPT/HCPCS: 0241U; 36415; 71046; 80053; 83690; 83735; 83880; 85025; 93005; 96365; 96366; 99284; J3480

== ENCOUNTER 2023-09-28 09:27 | Day surgery (SDC) | payer MEDICARE, MEDICAID, SELFPAY ==
--- NOTE | ~2023-09-28 | US_ITS ---
EXAMINATION: Limited ultrasound of the abdomen CLINICAL INFORMATION: Abdominal discomfort. Assess for paracentesis COMPARISON: CT 07/12/2023 FINDINGS: Limited ultrasound of all 4 quadrants demonstrates no visible ascites. A paracentesis was therefore not performed. US/US paracentesis abd w/image IMPRESSION: No ascites present. No paracentesis was performed. The examination was performed by Manny Oliver PA-C and supervised by Dr. Adler.
[2023-09-28 10:32] VITALS: BMI 42.1
[2023-09-28 10:34] LABS: Glucose, Whole Blood 147 mg/dL (60-115)
[2023-09-28 10:43] VITALS: PULSE 78; RESP 16; O2SAT 92
[2023-09-28] MEDS: Albuterol/Iprat 2.5/0.5MG 3 ML AMPUL.NEB INHALE (10:43)
[2023-09-28 11:40] VITALS: O2SAT 97
== END 2023-09-28 12:05 | disposition home or self-care (01) ==
LOC: HO.SSS 09:27
PROVIDERS: PCP Internal Medicine; Visit Provider Student in an Organized Health Care Education/Training Program
DX: K74.60 Unspecified cirrhosis of liver (principal); R18.8 Other ascites; I13.0 Hypertensive heart and chronic kidney disease with heart failure and stage 1 through stage 4 chronic kidney disease, or unspecified chronic kidney disease; I50.9 Heart failure, unspecified; N18.30 Chronic kidney disease, stage 3 unspecified; E11.22 Type 2 diabetes mellitus with diabetic chronic kidney disease; J44.9 Chronic obstructive pulmonary disease, unspecified; F17.210 Nicotine dependence, cigarettes, uncomplicated; Z79.51 Long term (current) use of inhaled steroids; Z79.899 Other long term (current) drug therapy
CPT/HCPCS: 49083; 76705; 82947; 94640; P9047

== ENCOUNTER → 2023-09-28 11:00 | Outpatient (BNV) | payer MEDICARE, MEDICAID, SELFPAY | PROVIDERS: PCP Internal Medicine; Visit Provider Radiology Diagnostic Radiology | DX: R10.9 Unspecified abdominal pain (principal) | CPT/HCPCS: 49083 ==

== ENCOUNTER 2024-10-05 15:30 | Emergency (ER) | payer MEDICARE, MEDICAID, SELFPAY ==
[2024-10-05 15:36] VITALS: BP 110/57; BP 111/61; PULSE 61; PULSE 66; RESP 20; TEMP 36.9; O2SAT 94; O2SAT 96; BMI 40.3
--- OUTSIDE RECORDS SUMMARY | 2024-10-05 16:03 | XMS_ITS | Continuity of Care Document ---
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 Name Role Phone Not on Staff, PCP Primary Care Physician Unavail able Encounter [facility] Date(s): 10/04/23 - 10/06/[address] [id number]- Encounter Diagnosis Fluid overload(Final) - 10/03/23 Discharge Disposition: A-Transfer SNF Attending Physician: Kiet Cormier MD Admitting Physician: Junito Carvalho MD Referring Physician: Not on Staff, Referring MD Allergies, Adverse Reactions, Alerts Substance Reaction Severity Status codeine Syncope Active Tylenol Active Tuberculin Nya Test Active Immunizations Given and Recorded Vaccine Date Status Refusal Reason influenza virus vaccine, inactivated 10/05/23 Give n influenza virus vaccine, inactivated 12/16/20 Robb rded influenza virus vaccine, inactivated 08/25/18 Robb rded influenza virus vaccine, inactivated 09/23/16 Robb rded influenza virus vaccine, inactivated 10/10/15 Robb rded influenza virus vaccine, inactivated 08/01/14 Robb rded influenza virus vaccine, inactivated 07/29/12 Give n influenza virus vaccine, inactivated 01/18/07 Give n SARS-CoV-2 (COVID-19) mRNA-1273 vaccine 03/30/22 R ecorded SARS-CoV-2 (COVID-19) mRNA-1273 vaccine 01/31/21 R ecorded SARS-CoV-2 (COVID-19) mRNA-1273 vaccine 01/03/21 R ecorded Hepatitis A Adult Vaccine 03/20/19 Recorded tetanus/diphtheria/pertussis, [...] acamprosate 333 mg oral delayed release tablet 1 tablet = 333 mg, By Mouth, 3 times a day, Maintenance, 10/06/23 11:46:00 EST, EC Tablet, Partial fill upon patient request if the prescription is for a schedule II opioid drug. Start Date: 10/06/23 Status: Ordered albuterol 0.083% inhalation solution 3 mL = 2.5 mg, Inhalation, Every 6 hours, Maintenance, 10/06/23 11:25:00 EST, Solution, Partial fill upon patient request if the prescription is for a schedule II opioid drug. Start Date: 10/06/23 Status: Ordered albuterol-ipratropium 3 mg-0.5 mg/3 ml inhalation solution 3 mL, Neb, Every 8 hours, PRN Wheezing/Shortness of Breath, Maintenance, 01/06/23 13:53:00 EST, ; Start Date: 01/06/23 Status: Ordered Artificial Tears preserved solution 1 drops, Eyes, Both, 3 times a day, Maintenance, 10/06/23 11:32:00 EST, Solution, Partial fill uponpatient request if the prescription is for a schedule II opioid drug. Start Date: 10/06/23 Status: Ordered benzonatate 200 mg oral capsule 1 capsule = 200 mg, By Mouth, 3 times a day, Maintenance, 10/06/23 11:27:00 EST, Capsule, Partial fill upon patient request if the prescription is for a schedule II opioid drug. Start Date: 10/06/23 Status: Ordered bisacodyl 10 mg rectal suppository 1 supp = 10 mg, Rectally, Every 72 hours, PRN if no BM in 3 days, Step 2, Maintenance, 10/06/23 11:35:00 EST, Suppository, Partial fill upon patient request if the prescription is for a schedule II opioid drug. Start Date: 10/06/23 Status: Ordered Centrum Adults 1 tablet, By Mouth, Daily, Maintenance, 10/06/23 11:40:00 EST, Partial fill upon patient request ifthe prescription is for a schedule II opioid drug. Start Date: 10/06/23 Status: Ordered cetirizine 10 mg oral tablet 1 tablet = 10 mg, By Mouth, Daily, Maintenance, 10/06/23 11:29:00 EST, Tablet, Partial fill upon patient request if the prescription is for a schedule II opioid drug. Start Date: 10/06/23 Status: Ordered diclofenac 1% topical gel apply to Hips, Topically, Every 6 hours, PRN pain, Maintenance, 10/06/23 11:46:00 EST, Gel, Partialfill upon patient request if the prescription is for a schedule II opioid drug. Start Date: 10/06/23 Status: Ordered duloxetine 30 mg oral enteric coated capsule 1 capsule = 30 mg, By Mouth, Daily, 0 Refills, Maintenance, 10/06/23 12:21:00 EST, Capsule, Partialfill upon patient request if the prescription is for a schedule II opioid drug. Start Date: 10/06/23 Status: Ordered escitalopram 20 mg oral tablet 1 tablet = 20 mg, By Mouth, Daily, Maintenance, 01/06/23 13:53:00 EST, ; Start Date: 01/06/23 Status: Ordered Fleet Enema 19 gm-7 gm rectal enema 1 each, Rectally, Every 72 hours, PRN if no BM in 3 days, Step 3, Maintenance, 10/06/23 11:36:00 EST, Enema, Partial fill upon patient request if the prescription is for a schedule II opioid drug. Start Date: 10/06/23 Status: Ordered Flonase Allergy Relief 50 mcg/inh nasal spray 1 sprays = 50 mcg, Nares, Both, 2 times a day, Maintenance, 10/06/23 11:28:00 EST, Partial fill upon patient request if the prescription is for a schedule II opioid drug. Start Date: 10/06/23 Status: Ordered folic acid 1 mg oral tablet 1 mg, 1, tablet, By Mouth, Daily, Maintenance, 10/06/23 11:38:00 EST, Partial fill upon patient request if the prescription is for a schedule II opioid drug. Start Date: 10/06/23 Status: Ordered furosemide 40 mg oral tablet 40 mg, 1, tablet, By Mouth, 2 times a day, Maintenance, 10/06/23 11:23:00 EST, Partial fill upon patient request if the prescription is for a schedule II opioid drug. Start Date: 10/06/23 Status: Ordered gabapentin 300 mg oral capsule 300 mg, Capsule, By Mouth, 10/06/23 9:00:00 EST Start Date: 10/06/23 Stop Date: 10/06/23 Status: Completed gabapentin 300 mg oral capsule 300 mg, 1, capsule, By Mouth, 3 times a day, Maintenance, 01/06/23 13:53:00 EST, ; Start Date: 01/06/23 Status: Ordered Camryn-Tussin Expectorant 100 mg/5 mL oral liquid 10 mL = 200 mg, By Mouth, Every 6 hours, PRN Cough, Maintenance, 10/06/23 11:25:00 EST, Partial fill upon patient request if the prescription is for a schedule II opioid drug. Start Date: 10/06/23 Status: Ordered lactulose 10 gm/15 ml oral syrup 30 mL = 20 Gm, By Mouth, 3 times a day, 0 Refills, Maintenance, 10/04/23 0:29:00 EST, Partial fill upon patient request if the prescription is for a schedule II opioid drug. Start Date: 10/04/23 Status: Ordered levETIRAcetam 500 mg oral tablet 1 tablet = 500 mg, By Mouth, 2 times a day, Maintenance, 01/06/23 13:53:00 EST, ; Start Date: 01/06/23 Status: Ordered lidocaine 5% topical film Bilateral Hips, Topically, Daily, on for 12 hours & off for 12 hours, Maintenance, 10/06/23 11:32:00 EST, Partial fill upon patient request if the prescription is for a schedule II opioid drug. Start Date: 10/06/23 Status: Ordered metoprolol 25 mg oral tablet, extended release 25 mg, XL Tablet, By Mouth, 10/06/23 9:00:00 EST Start Date: 10/06/23 Stop Date: 10/06/23 Status: Completed Metoprolol Tartrate 25 mg oral tablet 1 tablet = 25 mg, By Mouth, Daily, (Not ER), Maintenance, 10/06/23 11:39:00 EST, Partial fill upon patient request if the prescription is for a schedule II opioid drug. Start Date: 10/06/23 Status: Ordered MOM Liquid 30 mL, By Mouth, Every 72 hours, PRN if no BM in 3 days, Step 1, Maintenance, 10/06/23 11:36:00 EST, Partial fill upon patient request if the prescription is for a schedule II opioid drug. Start Date: 10/06/23 Status: Ordered MorPHINE CR Tablet 15 mg, CR Tablet, By Mouth, 10/06/23 4:00:00 EST, Stop date 10/06/23 4:00:00 EST Start Date: 10/06/23 Stop Date: 10/06/23 Status: Completed Mucinex 600 mg oral tablet, extended release 1 tablet = 600 mg, By Mouth, Every 12 hours, Maintenance, 10/06/23 11:26:00 EST, ER Tablet, Partialfill upon patient request if the prescription is for a schedule II opioid drug. Start Date: 10/06/23 Status: Ordered Muscle Rub 10%-15% topical cream Right Side Neck, Topically, PRN as needed for pain, Maintenance, 10/06/23 11:31:00 EST, Cream, Partial fill upon patient request if the prescription is for a schedule II opioid drug. Start Date: 10/06/23 Status: Ordered Narcan 4 mg/0.1 mL nasal spray = 4 mg, Naris, Left, Once, PRN as needed, Maintenance, 10/06/23 11:44:00 EST, Partial fill upon patient request if the prescription is for a schedule II opioid drug. Start Date: 10/06/23 Status: Ordered nystatin topical 505925 u/gm powder Bobbi area, Topically, 3 times a day, Maintenance, 10/06/23 11:45:00 EST, Powder, Partial fill upon patient request if the prescription is for a schedule II opioid drug. Start Date: 10/06/23 Status: Ordered oxyCODONE 5 mg oral tablet 5 mg, 1, tablet, By Mouth, Every 4 hours, PRN, Refills 0, Tot. Refills 0, Maintenance, moderate to severe pain >5 on pain scale, 10/06/23 11:34:00 EST, Partial fill upon patient request if the prescription is for a schedule II opioid drug. Start Date: 10/06/23 Status: Ordered pantoprazole 40 mg oral delayed release tablet 1 tablet = 40 mg, By Mouth, Daily, Maintenance, 01/06/23 13:53:00 EST Start Date: 01/06/23 Status: Ordered ProAir HFA 90 mcg/inh inhalation aerosol 1 puffs, Inhalation, 2 times a day, Maintenance, 01/06/23 13:53:00 EST, ; Start Date: 01/06/23 Status: Ordered tiZANidine 2 mg oral tablet 2 mg, 1, tablet, By Mouth, Every 8 hours, PRN, Maintenance, Spasm, 10/06/23 11:29:00 EST, Partial fill upon patient request if the prescription is for a schedule II opioid drug. Start Date: 10/06/23 Status: Ordered traZODone 50 mg oral tablet 50 mg, 1, tablet, By Mouth, Daily at bedtime, Maintenance, 01/06/23 13:53:00 EST, ; Start Date: 01/06/23 Status: Ordered Trelegy Ellipta 200 mcg-62.5 mcg-25 mcg/inh inhalation powder 1 puffs, Inhalation, Daily, Maintenance, 01/06/23 13:53:00 EST, ; Start Date: 01/06/23 Status: Ordered Vitamin B1 100 mg oral tablet 100 mg, 1, tablet, By Mouth, Daily, Maintenance, 10/06/23 11:37:00 EST, Partial fill upon patient request if the prescription is for a schedule II opioid drug. Start Date: 10/06/23 Status: Ordered Problem List Condition Confirmation Course [...] Active COPD, severe Confirmed Active Severe obesity Confirmed Active Unresponsiveness Confirmed Active Results Radiology Reports * Exam Date Time Procedure Performing Provider Status 10/03/23 3:09 PM US Doppler Ext Lower Venous Bilat Stephanie Marcial; Auth (Verified) Notes: (US Doppler Ext Lower Venous Bilat) Reason For Exam: Pain in limb;Other: RESULT: US Doppler Ext Lower Venous Bilat US Doppler Ext Lower Venous Bilat Hx of Present Illness: SOB. Reason: Pain in limb; Clinical Question(s): Thrombosis COMPARISON: 07/08/2012 IMAGING TECHNIQUE: Ultrasound of the veins from the groin through the calf was performed using grayscale, color, and spectral Doppler ultrasound assessing for complete compressibility and normal flowcharacteristics. FINDINGS: RIGHT LOWER EXTREMITY: Common femoral vein: Patent. No thrombosis. Femoral vein: The proximal femoral vein is patent without thrombosis. The mid and distal femoral veins are not well visualized, but has flow on spectral Doppler. Popliteal vein: Patent. No thrombosis. Gastrocnemius veins: The visualized portions are patent without evidence of thrombosis. Peroneal veins: Not visualized. Posterior tibial veins: Not visualized. LEFT LOWER EXTREMITY: Common femoral vein: Patent. No thrombosis. Femoral vein: The proximal and mid femoral veins are patent without thrombosis. The distal femoral vein is not well visualized, but has flow on spectral Doppler. Popliteal vein: Patent. No thrombosis. Gastrocnemius veins: The visualized portions are patent without evidence of thrombosis. Peroneal veins: Not visualized. Posterior tibial veins: Not visualized. OTHER FINDINGS: There is mild diffuse calf edema. IMPRESSION: No evidence of deep venous thrombosis. Limited visualization of the mid and distal femoral veins, peroneal and posterior tibial veins. Mild calf edema. I have personally reviewed the images and I agree with this report. WSN: [id number] Ordering Physician: Ravi Villalta Dictated By: Flex Corley MD Dictated Date/Time: 10/03/23 3:40 pm Reviewed By: Manny Chacon MD Signed By: Manny Chacon MD Signed Date/Time: 10/03/23 3:45 pm Transcribed By: EVY Transcribed Date/Time: 10/03/23 3:26 pm * Exam Date Time Procedure Performing Provider Status 10/03/23 2:37 PM Chest 2 Views Frontal and Lat Alvaro Griffiths; Scout (Verified) Notes: (Chest 2 Views Frontal and Lat) Reason For Exam: Shortness of Breath, Fever;Other: RESULT: Chest 2 Views Frontal and Lat Chest 2 Views Frontal and Lat Hx of Present Illness: pt coming from snf for SOB. Patient has had 38 lb weight gain in 30 days. Nurse at facility stated that pt seems more lethargic then normal [facility] with no acute findings.; Reason: Other:; Shortness of Breath, Fever; Clinical Question(s): Pneumonia COMPARISON: Chest CT 01/06/2023 and multiple priors. FINDINGS: Slightly limited examination due to the patient's body habitus and underpenetration LINES AND TUBES: None. LUNGS AND PLEURA: Low lung volumes with bibasilar atelectasis. Prominent interstitial markings bilaterally. Increased AP dimension and flattening of the hemidiaphragms bilaterally suggestive of underlying emphysema. No focal consolidation. No pleural effusion. No pneumothorax. HEART, MEDIASTINUM AND GUILLERMINA: Mild prominence of the cardiac silhouette. Aorta is calcified. BONES AND SOFT TISSUES: No acute abnormality. Multiple surgical clips are noted projecting over the right upper quadrant of the abdomen probably related to a prior cholecystectomy. IMPRESSION: Low lung volumes with bibasilar atelectasis. Prominent interstitium may suggest pulmonary congestion/edema. I have personally reviewed the images and I agree with this report. WSN: [id number] Ordering Physician: Ravi Villalta Dictated By: Judy Canas MD Dictated Date/Time: 10/03/23 2:59 pm Reviewed By: Prabhjot Bautista MD, V Signed By: Prabhjot Bautista MD, V Signed Date/Time: 10/03/23 3:04 pm Transcribed By: EVY Transcribed Date/Time: 10/03/23 2:43 pm Vital Signs Most recent to oldest [Reference Range]: 1 2 3 Height 158 cm (10/06/23 8:18 AM) 158 cm (10/06/23 5:20 AM) 158 cm (10/06/23 1:00 AM) Weight 103.1 kg (10/04/23 2:17 PM) 107.5 kg (10/04/23 10:00 AM) 107.5 kg (10/04/23 7:38 AM) Oxygen Saturation [94-100 %] 82 % *L* (10/06/23 8:18 AM) 99 % (10/06/23 5:20 AM) 96 % (10/06/23 1:00 AM) Pulse Rate [55-90 bpm] 114 bpm *H* (10/06/23 9:13 AM) 114 bpm *H* (10/06/23 8:18 AM) 83 bpm (10/06/23 5:20 AM) Body Mass Index [18.5-24.99 kg/m2] 41.3 kg/m2 *>HHI* (10/04/23 2:17 PM) 43.06 kg/m2 *>HHI* (10/04/23 10:00 AM) 43.06 kg/m2 *>HHI* (10/04/23 7:38 AM) Blood Pressure [90-138/55-84 mm Hg] 114/74mm Hg (10/06/23 9:13 AM) 114/74mm Hg (10/06/23 8:18 AM) 121/79mm Hg (10/06/23 5:20 AM) Respiratory Rate [16-30 br/min] 20 br/min (10/06/23 9:13 AM) 20 br/min (10/06/23 9:12 AM) 18 br/min (10/06/23 8:18 AM) Temperature [96.8-100.4 DegF] 98.2 DegF (10/06/23 8:18 AM) 97.9 DegF (10/06/23 5:20 AM) 97.5 DegF (10/06/23 1:00 AM) Liters per Minute 1 L/min (10/06/23 8:18 AM) 1 L/min (10/06/23 5:20 AM) 2 L/min (10/06/23 1:00 AM) Mode of Delivery (Oxygen) Nasal cannula (10/06/23 8:18 AM) Nasal cannula (10/06/23 5:20 AM) Nasal cannula (10/06/23 1:00 AM) Blood pressure sites Arm, left (10/06/23 8:18 AM) Arm, left (10/06/23 5:20 AM) Arm, right (10/06/23 1:00 AM) Temperature Route Oral (10/06/23 8:18 AM) Axillary (10/06/23 5:20 AM) Axillary (10/06/23 1:00 AM) Dry Weight 130.1 kg (10/04/23 2:17 PM) 107.5 kg (10/04/23 10:00 AM) 107.5 kg (10/04/23 7:38 AM) Weight Obtained Via Patient/family stated (10/03/23 1:43 PM) Dry Weight Obtained Via Patient/family stated (10/03/23 1:43 PM) Social History Social History Type Response Smoking Status Former smoker, quit more than 30 days ago entered on: 10/12/21 Sex History and physical note * Dionna ZEPEDA, Ronnell P: PERFORM Event Display: History and Physical Hospital Authored Date: [id number] Patient: ??DOUG FISHER ? Age:??78 Years?Sex:??Female?:??1945?? Chief Complaint/Reason for Consultation patient coming from snf. Patient dealing with lethargy for about a month. Labs have all lissette unremarkable at [facility]. O2 sat at 86% on 2 L Nc. 96% on 4 L. Co2 56-60. 38 lb weight gain in 30 days. History of Present Illness Date: 10/03/2023 Source: Patient ?? 78 year old??obese female??resident??of[facility]??in[facility] and who has??a history of alcoholic liver cirrhosis, hepatitis C, COPD (on 2 L of oxygen via nasal cannula), seizuredisorder, hypertension and remote history of endocarditis presents the emergency room for evaluation complaining of bilateral lower extremity swelling.?? She reported generalized weakness/lethargy over the last month.?? Per EMS report, the alf staff reported that she had a 38 pound weight gain over the last 30 days.?? Today she was found to be hypoxic with oxygen saturation of 86% on herbaseline 2 L of oxygen which improved when??it was titrated up to 4 L.?? She denied any associated cough,??chest pain or??shortness of breath.?? She has no history of congestive heart failure??or renal failure.?? Initial workup done in the emergency room included bilateral Doppler ultrasound which was negative for deep vein thrombosis.?? Blood work done was notable for mildly elevated serum creati nine at 1.3.?? Her BNP was however normal.?? An assessment of volume overload was made and admission requested.?? She otherwise does not endorse any additional complaints. Review of Systems 12 system review was completed and is as noted above otherwise the rest of the systems are negative. Objective Vital Signs:?? Temp 98.9 F;?? UT 88 bpm;?? RR 16 br/min;?? BP 107/73 mmHg;?? SaO2 95% on??3L? Physical Exam General:??Obese elderly female in bed. Awake and alert. In no acute cardiopulmonary distress. Mental Status:??Oriented to person, place and time. Normal affect. Head:??Normocephalic. Atraumatic.?? Eyes:??No pallor or jaundice. Pupils are equal, round and reactive to light. Extraocular muscles intact. Ear, Nose and Throat:??Oropharynx clear, mucous membranes moist. Trachea midline. Neck:??Supple, Full range of motion. Respiratory:??Clear to auscultation bilaterally.??No wheezing, rales or rhonchi. Cardiovascular:??Heart sounds normal. No thrills. Regular rate and rhythm, no murmurs, rubs or gallops. 2+ bipedal pitting edema Gastrointestinal:??Abdomen is obese, flabby, soft, non-tender, non-distended. Normal bowel sounds. No pulsatile mass. No hepatosplenomegaly. Genitourinary:??No costovertebral angle tenderness. Neurologic:??AAOx4. Intact speech & cognition. Moves all extremities spontaneously.??Cranial nerves II-XII grossly intact. No focal neurological deficits.?? Skin:??No rashes or lesions. No petechiae or purpura. No edema. Musculoskeletal:??No cyanosis or clubbing. No gross deformities. Normal range of motion. Lymphatics:??Palpation of neck reveals no swelling or tenderness of neck nodes. Palpation of groin reveals no swelling or tenderness of groin nodes. Assessment/Plan 78 year old obese female with history of alcoholic liver cirrhosis, hepatitis C, COPD (on 2 L of oxygen), seizure disorder, hypertension and remote history of endocarditis here with ?? Lower extremity edema (R60.0):? - unclear etiology - no suggestion of CHF at this time - admit for gentle diuresis - get 2 D echo in AM for further cardiac evaluation - consider increasing dose of Lasix at home ?? Hypoxia - reportedly with low SaO2 at facility while on 2L of Oxygen - appears comfortable at this time saturating at 100% -??will decrease O2 to??2 L ?? Hypertension (I10):? - she has a h/o hypertension - however her BP i soft at this time - will hold Metoprolol while diuresing her ?? Pancytopenia - chronic and stable - likely due to underlying liver cirrhosis - monitor ?? COPD without exacerbation (J44.9):? - resume Trelegy (Use Breo while admitted), PRN Duo Nebs and PRN Albuterol ?? History of seizure (Z87.898):? - resume Keppra ?? VTE Prophylaxis:? - SCDs ?VTE Prophylaxis Assessment:??VTE Prophylaxis Ordered ?? Code Status:? - FULL CODE ?Order Code Status:??Code Status Ordered ?? Discharge Planning:? Histories Allergies Tylenol? codeine?-?Reactions: Syncope Tuberculin Nya Test? Past Medical History/Problem List Alcoholism - in remission Asthma COPD Depression Hepatitis C Hypertension Liver cirrhosis Obesity Stroke Subacute infective endocarditis Thrombocytopenia ? Past Surgical History Right eye removal with implant: 2013 C/S x 1 appendectomy EGD - Esophagogastroduodenoscopy ? Social History She currently resides at [facility] in [place].?? She has a remote history of alcohol??useand smoking. ??She states that she quit smoking??a month ago after smoking half a pack of cigarettes for 60 years.?? She does not use drugs. ??She is currently wheelchair-bound. ?? CODE STATUS confirmed as full code. ? Family History Mother: Stroke Father: Hypertension; Leukemia Sister: Diabetes mellitus; Hypertension ? Medications Home Medications Albuterol (ProAir HFA 90 mcg/inh inhalation aerosol)?2?puff(s)?Inhalation?as needed?Wheezing/Shortness of Breath?every 4-6 hours Albuterol/Ipratropium (albuterol-ipratropium 3 mg-0.5 mg/3 ml inhalation solution)?3?Milliliter?Neb?3 times a day?as needed?Wheezing/Shortness of Breath Escitalopram?20?Milligram?By Mouth?Daily fluticasone/umeclidinium/vilanterol (Trelegy Ellipta 200 mcg-62.5 mcg-25 mcg/inh inhalation powder)?1?puff(s)?Inhalation?Daily Furosemide?20?Milligram?By Mouth?Daily Gabapentin?300?Milligram?By Mouth?2 times a day Lactulose (lactulose 10 gm/15 ml oral syrup)?30?Milliliter?20?gram?By Mouth?2 times a day Levetiracetam?500?Milligram?By Mouth?2 times a day Metoprolol Succinate?25?Milligram?By Mouth?Daily Pantoprazole?40?Milligram?By Mouth?Daily Trazodone?50?Milligram?By Mouth?Daily at bedtime ? US Heart * Event Display: Echocardiogram - Complete Authored Date: Transthoracic Echocardiography Report (TTE) Patient Demographics Patient Name RAMOS LEW, Date of Study 10/06/2023 [facility]ly [facility], [facility] Gender Female Facility Race Ethnicity or Date of 1945 Height: 62.2 inches Age 78 year(s) Weight: 227.08 pounds Accession Number [id number] BSA: 2.02 m2 Room Number [id number] BMI: 41.26 kg/m2 Referring Physician LEIA ALEGRIA Interpreting Ortiz Alarcon MD Physician Hr Recruiter Juan Brown Indications Congestive heart failure. Clinical History CVA COPD Hep C Hypertension. TIA. AUD Asthma Severe Obesity. Liver Cirrhosis Study Data Type of Study TTE procedure:Echo Complete-Doppler, Colorflow, M-Mode. Study Date10/06/2023 Start Time: 11:16 AM Study Location: [facility] Adult Echo Study Status: Echo lab Patient Status: NICANOR Technical Quality: Poor due to obesity. Blood Pressure:136/84 mmHg EKG: Normal sinus rhythm HR: 75 bpm 2D Measurements LV Diastolic Dimension: 4.88 cm LV Systolic Dimension: 3.1 cm LV Septum Diastolic: 1.13 cm LV PW Diastolic: 1.23 cm AO Root Dimension: 3 cm RV Diastolic Dimension: 4.6 cm LA Dimension: 4.94 cm LA ESV (BP):94.51 ml LA ESV Index: 47 ml/m2 LVOT: 2.07 cm Ascending Aorta:3.5 cm Doppler Measurements MV Peak E-Wave: 93.3 cm/s MV Peak A-Wave: 146 cm/s MV E/A Ratio: 0.64 AV Area (2D): 2.45 cm2 MV P1/2t: 55 msec TR Velocity:138 cm/s MV Mean Gradient: 4 mmHg TR Gradient:7.62 mmHg MV Deceleration Time: 187 msec MV Area (PHT): 4 cm2 PV Peak Velocity: 159 cm/s PV Peak Gradient: 10.11 mmHg Cardiac Anatomy Left Ventricle/Interventricular Septum The left ventricle is poorly visualized. The apical views are inadequate. The left ventricular size is normal. The left ventricular wall thickness is mildly increased. The LV systolic function is normal . The left ventricular ejection fraction is 65-70 %. Image quality is inadequate to assess regional wall motion. Unable to assess diastolic function . Left Atrium/Interatrial Septum The left atrium is poorly visualized. The left atrium is moderately dilated. Aortic Valve The aortic valve is trileaflet . The aortic valve appears moderately calcified. The aortic valve leaflet opening is moderately decreased . Cannot assess degree of aortic stenosis. Mitral Valve There is severe mitral annular calcification. The mitral valve opening is normal. There is no significant mitral regurgitation. Aorta The ascending aorta and aortic root are normal in size. Right Ventricle The right ventricle is poorly visualized. The right ventricle is mildly dilated. Right ventricular systolic function appears preserved. Right Atrium The right atrium is poorly visualized. The right atrium is normal in size. Pulmonic Valve The pulmonic valve appears grossly normal. The pulmonic valve velocity is normal. Tricuspid Valve The tricuspid valve is poorly visualized. There is no significant tricuspid valve regurgitation. Pumonary Artery An accurate pulmonary artery pressure could not be obtained. Venous Structures The inferior vena cava is not visualized. Pericardium/Extracardiac There is no significant pericardial effusion. Summary The left ventricle is poorly visualized. The apical views are inadequate. The left ventricular size is normal. The left ventricular wall thickness is mildly increased. The LV systolic function is normal . The left ventricular ejection fraction is 65-70 %. Image quality is inadequate to assess regional wall motion. Unable to assess diastolic function . The left atrium is poorly visualized. The left atrium is moderately dilated. The aortic valve is trileaflet . The aortic valve appears moderately calcified. The aortic valve leaflet opening is moderately decreased . Cannot assess degree of aortic stenosis. There is severe mitral annular calcification. The mitral valve opening is normal. There is no significant mitral regurgitation. The right ventricle is poorly visualized. The right ventricle is mildly dilated. Right ventricular systolic function appears preserved. Recommendation Follow up imaging to assess aortic valve was requested but the patient had already been discharged. Comparison No prior study available for comparison. Signature * Event Display: Echocardiogram - Complete Authored Date: Hospital Progress note * Francesca Colby RN: PERFORM, SIGN, VERIFY Event Display: Progress Note Hospital Authored Date: Patient: DOUG FISHER Age: 78 years Sex: Female : 1945 Associated Diagnoses: None Author: Francesca Colby RN Findings Problem Related to Alteration in Fluid Electrolyte : Alteration in Fluid Electrolyte Func/new 10/06/2023 12:00 EST Alteration Fluid Electrolytes Related to Fluid Volume Excess Goals & Outcomes, Fluid/Electrolyte Blood glucose levels will stabilize during hospitalization,Vital signs, electrolytes & glucose levels will stabilize, Pt will maintain adequate GI/ function appropriate for pt, Pt will maintain skin turgor, Pt will resume/maintain adequate cardiac output, Pt will resume/maintain adequate hemodynamic status, Pt will state importance of adhering to medication regime Interventions, Fluid Electrolyte Monitor effects of diuretics BH Goals/Interventions,Fluid Electrolyte Yes Fluid Electrolyte, Problem Start 10/04/2023 14:50 Reviewed plan with, Fluid Electrolyte Patient Patient Progression, Fluid Electrolyte Pt progressing according to plan . Narrative/Incidental Patient A/O x4, forgetful, cooperative with care female. Patient c/o pain, scheduled Morphine givenwith good effect. Patient's LS diminished bilat, SOB w/exertion, and continues on 1L of O2. Patienthasn't had BM in four days, PRN's given yesterday and is on scheduled bowel meds, MD aware, positive bowel sounds, abdomen non-tender, but is distended possibly due to fluid though, MD also aware of patient's abdominal ?swelling or ?distension. Patient is supposed to leave later today to rehab. Patient's safety/comfort maintained by hourly rounds, every two hour repo, call laureano within reach, and bed alarm activated. . Discharge Information Case Management Discharge Plan : Case Management Discharge Plan Data 10/06/2023 9:52 EST Discharge Level of Care at Discharge [facility] facility Discharge Nursing Homes/Rehab Facilities [facility] Discharge Transportation Arranged [facility] [address] [place] [id number] [phone] Discharge Arranged Transport Date/Time 10/06/2023 12:30 Mode of Transportation Arranged Ambulance * Maggie Lambert RN: MODIFY, SIGN, VERIFY, PERFORM Event Display: Progress Note Hospital Authored Date: [id number] Patient: DOUG FISHER Age: 78 years Sex: Female : 1945 Associated Diagnoses: None Author: Maggie Lambert RN Findings Problem Related to Alteration in Fluid Electrolyte : Alteration in Fluid Electrolyte Func/new 10/06/2023 0:00 EST Alteration Fluid Electrolytes Related to Fluid Volume Excess Goals & Outcomes, Fluid/Electrolyte Blood glucose levels will stabilize during hospitalization,Vital signs, electrolytes & glucose levels will stabilize, Pt will maintain adequate GI/ function appropriate for pt, Pt will maintain skin turgor, Pt will resume/maintain adequate cardiac output, Pt will resume/maintain adequate hemodynamic status, Pt will state importance of adhering to medication regime Interventions, Fluid Electrolyte monitor cardiac status, monitor dietary intake, Monitor effects ofdiuretics, monitor effects of intravenous fluid, monitor for onset of acute bleeding, monitor for s/s of anemia: weakness, fatigue,, monitor for s/s of hyper/hypokalemia, monitor for s/s of hypo or hyperglycemia, monitor GI/ status, monitor hydration status, monitor mucous membranes, monitor perip heral pulses, monitor skin turgor, temperature & capillary refill, Encourage & assist with increased activity as pt tolerates, Encourage oral intake of meals, snacks, supplements, Maintain strict intake & output, Teach Pt/caregiver cause of imbalance & corrective therapy, Teach Pt/caregiver importance of accurate I & O monitoring BH Goals/Interventions,Fluid Electrolyte Yes Fluid Electrolyte, Problem Start 10/04/2023 14:50 Reviewed plan with, Fluid Electrolyte Patient Patient Progression, Fluid Electrolyte Pt progressing according to plan . Narrative/Incidental Assumed pt's care at 1900. Pt A&Ox4. Lethargic but oriented. Held pt's PM Trazodone. On telemetry NSR overnight w/ cont. O2 monitoring in high 90s. On 2L via NC. Wet cough and RODRIGUEZ observed. PP+ +2 pitting edema BLE. Erythema to BLE. Pt c/o 5/10 BL hip/extremity pain. Scheduled medications administered per orders. VSS. Purposeful rounds performed throughout shift. Bed in lowest locked positionw/ alarm set, side rails up x2, and call light within reach. Plan of care ongoing. See forms for further assessments. . * Kiet Cormier MD: PERFORM Event Display: Progress Note Hospital Authored Date: Patient: ??DOUG FISHER ? Age:??78 Years?Sex:??Female?:??1945?? Subjective Patient was seen and examined this morning.?? Patient was resting in her bed. ??Patient uses 1 L oxygen at baseline.?? Her breathing seems to be improving as per her.?? No significant crackles/wheezing noticed in the chest. Lower extremity swelling improving.?? Does have some redness??to her lower extremities.?? No evidence of cellulitis currently. Complains of pain in her flank.?? She takes oxycodone 5 mg every 4 hours as needed at home.?? Will restart her home dose of oxycodone, Benadryl 25 mg??twice daily as needed for pruritus. Chest x-ray did show signs of fluid overload,??NT proBNP of??206-unreliable because of patient's obesity. Continue with diuresis with IV Lasix??20 twice daily for now.?? Will??keep on pure wick??as patientwas incontinent of urine to have more accurate I's and O's. Review of Systems Review of system apart from the ones mentioned in the subjective are negative. Allergies Allergies ?(Active and Proposed Allergies Only) Tylenol? (Severity: Unknown severity, Onset: Unknown) codeine? (Severity: Unknown severity, Onset: Unknown) ?Reactions: Syncope Tuberculin Nya Test? (Severity: Unknown severity, Onset: Unknown) ? Past Medical History Active Problems??(18) Acute chest pain Acute chest pain Alcoholism Altered mental status ASTHMA Chest pain COPD, severe Depression Hepatitis C HYPERTENSION Liver cirrhosis Nausea ??787.02 Respiratory failure with hypoxia Severe obesity Stroke Subacute infective endocarditis Thrombocytopenia Unresponsiveness ? Objective Measurements?? Height: 158 cm (10/04/23) Weight: 103.1 kg (10/04/23) Dry Weight: 130.1 kg (10/04/23) Body Mass Index:??41.3 kg/m2??Critical (10/04/23) ? Vital Signs?? Temperature: 98.1 DegF (10/05/23 07:00:00) Temperature Route: Oral (10/05/23 07:00:00) Pulse Rate: 79 bpm (10/05/23 07:00:00) Respiratory Rate: 18 br/min (10/05/23 11:30:00) Systolic Blood Pressure:??144 mm Hg??High (10/05/23 07:00:00) Diastolic Blood Pressure: 63 mm Hg (10/05/23 07:00:00) Blood pressure sites: Arm, right (10/05/23 07:00:00) Mean Arterial Pressure: 93 mm Hg (10/04/23 23:17:00) Pulse Pressure: 60 mm Hg (10/04/23 23:17:00) Oxygen Saturation: 96 % (10/05/23 07:00:00) Liters per Minute: 1 L/min (10/05/23 07:00:00) Mode of Delivery (Oxygen): Nasal cannula (10/05/23 07:00:00) Early Warning Score: 6 (10/05/23 11:31:05) ? Pain Scores 1 - 10 Pain Scale Score: 7 (11:27) Pain relief acceptable: Yes (20:45) ? Intake/Output? 10/04 12:13 10/05 07:00 10/04 07:00 10/03 07:00 ?? 10/05 11:46 10/05 11:46 10/05 06:59 10/04 06:59 Diaper Count ?3 ?0 ?3 ?0 ? Physical Exam Constitutional: Alert, in no acute distress.?? Class IIIb obesity Head EENT: Extraocular muscle movement intact.??Moist mucous membranes.?? Neck: Supple. No JVD. Respiratory: Decreased air entry bilaterally, no wheezing or crackles appreciated, no use of accessory muscles, currently on 1 L oxygen via nasal cannula (baseline) Cardiovascular: S1S2 regular. No murmurs, rubs or gallops. Gastrointestinal: Abdomen soft, non-tender, non-distended. Normal bowel sounds. Genitourinary: No CVA tenderness. Extremities: 1+ bilateral lower extremity pitting edema, mild??redness, no signs of??cellulitis noticed. Neurologic: AAOx3, Speech normal. No focal neurological deficits. Skin: No rash. Psychiatric: Normal mood and affect _ Inpatient Medications Medications (24) Active SCHEDULED: (15) Duloxetine 30 mg Capsule (Duloxetine) ??30 mg, By Mouth, Daily Escitalopram 10 mg Tablet (escitalopram 10 mg oral tablet) ??20 mg, By Mouth, Daily Folic Acid 1 mg Tablet (folic acid 1 mg oral tablet) ??1 mg, By Mouth, Daily Furosemide Inj (Lasix ??Inj) ??20 mg 2 mL, IV Push Slowly, 2 times a day Gabapentin 300 mg Capsule (gabapentin 300 mg oral capsule) ??300 mg, By Mouth, 2 times a day Keppra 500mg Tablet (levETIRAcetam 500 mg oral tablet) ??500 mg, By Mouth, 2 times a day Lactulose 20 Gm/30mL Syrup (Lactulose) ??20 Gm 30 mL, By Mouth, 2 times a day Loratadine 10 mg Tablet (loratadine 10 mg oral tablet) ??10 mg, By Mouth, Daily MorPHINE 15 mg CR Tablet (MorPHINE CR Tablet) ??15 mg, By Mouth, Every 12 hours Multivitamin Tablet ??1 tablet, By Mouth, Daily Pantoprazole 40 mg EC Tablet (pantoprazole 40 mg oral delayed release tablet) ??40 mg, By Mouth, Daily Polyethylene Glycol 17 Gm Powder (Polyethylene Glycol Powder) ??17 Gm 1 pack/packet, By Mouth, Daily Pyridoxine 50 mg Tablet (Pyridoxine Tablet) ??50 mg, By Mouth, Daily Thiamine 100 mg Tablet (Vitamin B1 100 mg oral tablet) ??100 mg, By Mouth, Daily Trazodone 50 mg Tablet (traZODone 50 mg oral tablet) ??50 mg, By Mouth, Daily at bedtime CONTINUOUS: (0) PRN: (9) Acetaminophen 325 mg Tablet (Acetaminophen Tablet) ??650 mg, By Mouth, Every 4 hours Albuterol 90mcg/Inhalation Inhaler HFA (albuterol CFC free 90 mcg/inh inhalation aerosol) ??180 mcg2 puffs, Inhalation, Every 4 hours diphenhydrAMINE 25 mg Tablet (Benadryl Tablet) ??25 mg, By Mouth, 2 times a day Docusate Sodium 100 mg Capsule (Docusate Sodium Capsule) ??100 mg 1 capsule, By Mouth, 2 times a day Melatonin 3 mg Tablet (Melatonin Tablet) ??3 mg, By Mouth, Daily at bedtime NaCl 0.9% Flush 3ml (NaCL 0.9% Flush) ??3 mL, IV Push, Every 8 hours Polyethylene Glycol 17 Gm Powder (MiraLax Powder) ??17 Gm 1 pack/packet, By Mouth, Daily Polyvinyl Alcohol 1.4% Opthalmic Solution/Artificial Tears (Artificial Tears1.4%) ??1 drops, Eyes, Both, Every 4 hours Senna Tablet ??8.6 mg 1 tablet, By Mouth, 2 times a day ? Results Recent Labs BLOOD COUNT & DIFF WBC 3.6 k/mm3 (Low)?? 10/05/2023 01:01 RBC 3.93 m/mm3 (Low)?? 10/05/2023 01:01 Hgb 10.5 Gm/dL (Low)?? 10/05/2023 01:01 Hct 36.2 % ()?? 10/05/2023 01:01 MCV 92.1 femtoliters ()?? 10/05/2023 01:01 MCH 26.7 pg (Low)?? 10/05/2023 01:01 MCHC 29.0 g/dL (Low)?? 10/05/2023 01:01 Platelet Count 55 k/mm3 (Low)?? 10/05/2023 01:01 RDW-SD 54.8 femtoliters (High)?? 10/05/2023 01:01 MPV 10.8 femtoliters ()?? 10/05/2023 01:01 Nucleated RBC (Automated) 0.0 #/100 WBC'S ()?? 10/05/2023 01:01 Abs. NRBC 0.0 k/mm3 ()?? 10/05/2023 01:01 ?? CHEM GENERAL Sodium 141 mmol/L ()?? 10/05/2023 01:01 Potassium 3.3 mmol/L (Low)?? 10/05/2023 01:01 Chloride 100 mmol/L ()?? 10/05/2023 01:01 Bicarbonate Level 35 mmol/L (High)?? 10/05/2023 01:01 Anion Gap 6 ()?? 10/05/2023 01:01 Glucose Level 127 mg/dL (High)?? 10/05/2023 01:01 BUN 13 mg/dL ()?? 10/05/2023 01:01 Creatinine-Blood 1.2 mg/dL (High)?? 10/05/2023 01:01 Estimated GFR Creatinine 48 ML/MIN/1.73 M2 ()?? 10/05/2023 01:01 Calcium 8.4 mg/dL (Low)?? 10/05/2023 01:01 ?? URINE OTHER Est Creatinine Clearance 31.34 mL/min ()?? 10/05/2023 03:13 ? Abnormal Labs ?? BLOOD COUNT & DIFF ??Abs. NRBC ??0.0 k/mm3 () ??10/05/2023 01:01 ??Hgb ??10.5 Gm/dL (Low) ??10/05/2023 01:01 ??MCH ??26.7 pg (Low) ??10/05/2023 01:01 ??MCHC ??29.0 g/dL (Low) ??10/05/2023 01:01 ??Nucleated RBC (Automated) ??0.0 #/100 WBC'S () ??10/05/2023 01:01 ??Platelet Count ??55 k/mm3 (Low) ??10/05/2023 01:01 ??RBC ??3.93 m/mm3 (Low) ??10/05/2023 01:01 ??RDW-SD ??54.8 femtoliters (High) ??10/05/2023 01:01 ??WBC ??3.6 k/mm3 (Low) ??10/05/2023 01:01 ? CHEM GENERAL ??Bicarbonate Level ??35 mmol/L (High) ??10/05/2023 01:01 ??Calcium ??8.4 mg/dL (Low) ??10/05/2023 01:01 ??Creatinine-Blood ??1.2 mg/dL (High) ??10/05/2023 01:01 ??Estimated GFR Creatinine ??48 ML/MIN/1.73 M2 () ??10/05/2023 01:01 ??Glucose Level ??127 mg/dL (High) ??10/05/2023 01:01 ??Potassium ??3.3 mmol/L (Low) ??10/05/2023 01:01 ? Note: Critical results are displayed in red. ? Assessment/Plan Chief Complaint: patient coming from snf. Patient dealing with lethargy for about a month. Labs have all lissette unremarkable at [facility]. O2 sat at 86% on 2 L Nc. 96% on 4 L. Co2 56-60. 38 lb weight gain in 30 days. ?? Diagnoses COPD without exacerbation ??(J44.9) Fluid overload ??(E87.70) History of seizure ??(Z87.898) Hypertension ??(I10) Lower extremity edema ??(R60.0) ?? 78 year old obese female with history of alcoholic liver cirrhosis, hepatitis C, COPD (on??1 L of oxygen??at baseline), seizure disorder, hypertension and remote history of endocarditis presented to the hospital with shortness of breath,??worsening swelling of lower extremity.?? Patient had Dopplerultrasound of bilateral lower extremities which were negative for DVT.?? Patient's NT proBNP was 2 6??which was unreliable??because of patient's body habitus. ??Chest x-ray showed signs of fluid overload. ??Patient was started on diuresis with IV Lasix 20 mg twice daily.?? Her shortness of breath as well as lower extremity swelling is gradually improving.?? Will continue to track I's and O's stric tly.?? Will obtain TTE??for further evaluation as patient has been having??few PVCs, potassium was noticed to be low on 10/05. ??Will replace with 40 mEq of oral potassium. ?? Possible??acute on chronic diastolic heart failure Class IIIb obesity, the proBNP not significantly elevated Chest x-ray with signs of pulmonary edema, bilateral lower extremity edema. ??DVT ultrasound negative for DVT Continue diuresis with IV Lasix 20 mg twice daily, strict I's and O's, daily serum creatinine monitoring TTE pending,??further planning??depending upon TTE. ? Acute on chronic hypoxemia Most likely secondary to fluid overload/pulmonary edema at baseline patient uses 1-2 L of oxygen,??had low saturation??at the facility on 2 L Oxygen currently has been weaned down to 1 L. Continue diuresis with IV Lasix 20 mg twice daily for now. ? Hypertension (I10):? Relatively soft blood pressure??during hospital stay, most likely secondary to volume overload Blood pressure better, restarted on home metoprolol??succinate 25 mg, had few PVCs this morning ?? Pancytopenia - chronic and stable - likely due to underlying liver cirrhosis - monitor ?? COPD without exacerbation (J44.9):? - resume Trelegy (Use Breo while admitted), PRN Duo Nebs and PRN Albuterol ?? History of seizure (Z87.898):? - resume Keppra ?? DVT prophylaxis-sequential compression stockings ?? CODE STATUS-full code ?? Ongoing medical needs-currently getting diuresed. ??TTE pending. ??Will need 1 to 2 days of inpatient hospital stay prior to disposition??back to her facility. ? Electronically signed: ?? Kiet Cormier MD. ?Order Date/Time ??Order Action ??Order Name ??Order Detail ??10/05/2023 10:24 ??Order ??diphenhydrAMINE 25 mg Tablet ??25 mg, By Mouth, 2 times a day, PRN: Itch ??10/05/2023 08:04 ??Order ?? to RN Misc Instruction ??patient seems to be incontinent of urine, please use pure wick so that we can document urine output more accurately, 10/05/23 8:04:00 EST ??10/05/2023 08:02 ??Order ??Potassium Chloride 10mEq ER Tablet ??40 mEq, By Mouth, Once ??10/05/2023 08:01 ??Order ??Change MD Al/DO ??Casa ZEPEDA, Kenny Santa text until 5pm and then [place] [id number], 10/05/23 8:01:00 EST ??10/05/2023 08:01 ??Discontinue ??Change Attending, /DO ??Leia ZEPEDA, Da, 10/04/23 8:37:00 EST ? Note * Francesca Colby RN: PERFORM Event Display: Discharge/Transfer Note Hospital Authored Date: [id number] Nursing Discharge Note Entered On: 10/06/2023 14:36 EST Performed On: 10/06/2023 14:36 EST by Francesca Colby RN Nursing Discharge Note 2 Discharge Time : 10/06/2023 13:05 EST Discharge Level of Care at Discharge : [facility] facility Discharge Nursing Homes/Rehab Facilities : [facility] Patient Left Unit Via : Ambulance Patient Accompanied Off Unit with : Ambulance/Chair Van Personnel Handover Given to Transport Personnel : Yes DC Instructions Provided & Signed by Pt : Unable Patient Understands D/C Instructions : Unable Verbalization of Discharge Plan Comments : two nurses signed as pt going to facility Patient Instructions Discharge Signed : Yes Did Pt have Specialty Bed or Wound Vac : Yes Francesca Colby RN - 10/06/2023 14:36 EST * Kiet Cormier MD: PERFORM Event Display: Discharge/Transfer Note Hospital Authored Date: [id number] Patient: ??RAMOS DOUG LEW ? Age:??78 Years?Sex:??Female?:??1945?? Patient Information Discharge Location: A Primary Care Physician: Not on Staff, PCP Admit Date/Time: 10/04/23 12:13 Discharge Disposition Discharge Disposition: [facility] Facility/Rehab Discharge Diagnosis COPD without exacerbation (J44.9) Fluid overload (E87.70) History of seizure (Z87.898) Hypertension (I10) Lower extremity edema (R60.0) ?? _ Discharge Medications Acamprosate (acamprosate 333 mg oral delayed release tablet)?1?tab(s)?333?Milligram?By Mouth?3 times a day Albuterol (ProAir HFA 90 mcg/inh inhalation aerosol)?1?puff(s)?Inhalation?2 times a day Albuterol (albuterol 0.083% inhalation solution)?3?Milliliter?2.5?Milligram?Inhalation?Every 6 hours Albuterol/Ipratropium (albuterol-ipratropium 3 mg-0.5 mg/3 ml inhalation solution)?3?Milliliter?Neb?Every 8 hours?as needed?Wheezing/Shortness of Breath Benzonatate (benzonatate 200 mg oral capsule)?1?capsule?200?Milligram?By Mouth?3 times a day Bisacodyl (bisacodyl 10 mg rectal suppository)?1?suppository(ies)?10?Milligram?Rectally?Every 72 hours?as needed?if no BM in 3 days?Step 2 Cetirizine (cetirizine 10 mg oral tablet)?1?tab(s)?10?Milligram?By Mouth?Daily Diclofenac Topical (diclofenac 1% topical gel)?apply to Hips?Topically?Every 6 hours?asneeded?pain Duloxetine (duloxetine 30 mg oral enteric coated capsule)?1?capsule?30?Milligram?By Mouth?Daily Escitalopram (escitalopram 20 mg oral tablet)?1?tab(s)?20?Milligram?By Mouth?Daily Fluticasone Nasal (Flonase Allergy Relief 50 mcg/inh nasal spray)?1?spray(s)?50?Microgram?Nares, Both?2 times a day fluticasone/umeclidinium/vilanterol (Trelegy Ellipta 200 mcg-62.5 mcg-25 mcg/inh inhalation powder)?1?puff(s)?Inhalation?Daily Folic Acid (folic acid 1 mg oral tablet)?1?Milligram?1?tablet?By Mouth?Daily Furosemide (furosemide 40 mg oral tablet)?40?Milligram?1?tablet?By Mouth?2 times a day Gabapentin (gabapentin 300 mg oral capsule)?300?Milligram?1?capsule?By Mouth?3 times a day Guaifenesin (Camryn-Tussin Expectorant 100 mg/5 mL oral liquid)?10?Milliliter?200?Milligram?By Mouth?Every 6 hours?as needed?Cough Guaifenesin (Mucinex 600 mg oral tablet, extended release)?1?tab(s)?600?Milligram?ByMouth?Every 12 hours Lactulose (lactulose 10 gm/15 ml oral syrup)?30?Milliliter?20?gram?By Mouth?3 times a day levETIRAcetam (levETIRAcetam 500 mg oral tablet)?1?tab(s)?500?Milligram?By Mouth?2 times a day Lidocaine Topical (lidocaine 5% topical film)?Bilateral Hips?Topically?Daily?on for 12 hours & off for 12 hours Methyl Salicylate-Menthol Topical (Muscle Rub 10%-15% topical cream)?Right Side Neck?Topically?as needed?as needed for pain Metoprolol (Metoprolol Tartrate 25 mg oral tablet)?1?tab(s)?25?Milligram?By Mouth?Daily?(Not ER) Milk of Magnesia (MOM Liquid)?30?Milliliter?By Mouth?Every 72 hours?as needed?if no BM in 3 days?Step 1 Multivitamin With Minerals (Centrum Adults)?1?tab(s)?By Mouth?Daily nalOXONE (Narcan 4 mg/0.1 mL nasal spray)?4?Milligram?Naris, Left?Once?as needed?as needed Nystatin Topical (nystatin topical 814663 u/gm powder)?Bobbi area?Topically?3 times a day Ocular Lubricant (Artificial Tears preserved solution)?1?Drops?Eyes, Both?3 times a day Oxycodone (oxyCODONE 5 mg oral tablet)?5?Milligram?1?tablet?By Mouth?Every 4 hours?as needed?moderate to severe pain >5 on pain scale Pantoprazole (pantoprazole 40 mg oral delayed release tablet)?1?tab(s)?40?Milligram?By Mouth?Daily Sodium Biphosphate-Sodium Phosphate (Fleet Enema 19 gm-7 gm rectal enema)?1?Each?Rectally?Every 72 hours?as needed?if no BM in 3 days?Step 3 Thiamine (Vitamin B1 100 mg oral tablet)?100?Milligram?1?tablet?By Mouth?Daily Tizanidine (tiZANidine 2 mg oral tablet)?2?Milligram?1?tablet?By Mouth?Every 8 hours?as needed?Spasm Trazodone (traZODone 50 mg oral tablet)?50?Milligram?1?tablet?By Mouth?Daily at bedtime ? Durable Medical Equipment Discharge recommendations: Rehab (01/11/23) Ambulatory devices needed: None (10/04/23) ? Medications Started Follow-up Follow-up with your primary care physician in about 1 to 2-week of discharge. ??Call office for appointment. ?? New medication Duloxetine 30 mg daily Continue taking rest of your home medicines as you were doing prior to admission. ?? Recommendations Elevate bilateral lower extremities??to prevent swelling.?? Keith wrap's to bilateral lower extremities??from the level of ankle up to the level of knees. Medications Discontinued none Doses Changed none Allergies Allergies ?(Active and Proposed Allergies Only) Tylenol? (Severity: Unknown severity, Onset: Unknown) codeine? (Severity: Unknown severity, Onset: Unknown) ?Reactions: Syncope Tuberculin Nya Test? (Severity: Unknown severity, Onset: Unknown) ? Hospital Course ?? Diagnoses COPD without exacerbation ??(J44.9) Fluid overload ??(E87.70) History of seizure ??(Z87.898) Hypertension ??(I10) Lower extremity edema ??(R60.0) ?? 78 year old obese female with history of alcoholic liver cirrhosis, hepatitis C, COPD (on??1 L of oxygen??at baseline), seizure disorder, hypertension and remote history of endocarditis presented to the hospital with shortness of breath,??worsening swelling of lower extremity.?? Patient had Dopplerultrasound of bilateral lower extremities which were negative for DVT.?? Patient's NT proBNP was 2 6??which was unreliable??because of patient's body habitus. ??Chest x-ray showed signs of fluid overload. ??Patient was started on diuresis with IV Lasix 20 mg twice daily.?? Her shortness of breath as well as lower extremity swelling is gradually improving.?? Will continue to track I's and O's stric tly.?? Will obtain TTE??for further evaluation as patient has been having??few PVCs, potassium was noticed to be low on 10/05. ??Will replace with 40 mEq of oral potassium. ?? Possible??acute on chronic diastolic heart failure Class IIIb obesity, the proBNP not significantly elevated Chest x-ray with signs of pulmonary edema, bilateral lower extremity edema. ??DVT ultrasound negative for DVT Was diuresed with IV Lasix 20 mg twice daily during hospital stay. ??On disposition patient will continue with??her home dose of Lasix. , strict I's and O's, daily serum creatinine monitoring??during hospital stay Shortness of breath, lower extremity swelling improved Outpatient follow-up with PCP for??echo ? Acute on chronic hypoxemia Most likely secondary to fluid overload/pulmonary edema at baseline patient uses 1-2 L of oxygen,??had low saturation??at the facility on 2 L Oxygen currently has been weaned down to 1 L. Was diuresed with IV Lasix during hospital stay. ? Hypertension (I10):? Continue metoprolol succinate 25 mg daily ?? Pancytopenia - chronic and stable - likely due to underlying liver cirrhosis - monitor ?? COPD without exacerbation (J44.9):? Continue Trelegy, PRN Duo Nebs and PRN Albuterol ?? History of seizure (Z87.898):? Continue Keppra??on disposition ? CODE STATUS-full code ?? Disposition-discharge back to her??alf on??10/06/2023 ? Electronically signed: ?? Kiet Cormier MD. Objective ? as mentioned above ?? Measurements?? Height: 158 cm (10/06/23) Weight: 103.1 kg (10/04/23) Dry Weight: 130.1 kg (10/04/23) Body Mass Index:??41.3 kg/m2??Critical (10/04/23) ? Vital Signs?? Temperature: 98.2 DegF (10/06/23 08:18:00) Temperature Route: Oral (10/06/23 08:18:00) Pulse Rate:??114 bpm??High (10/06/23 09:13:00) Respiratory Rate: 20 br/min (10/06/23 09:13:00) Systolic Blood Pressure: 114 mm Hg (10/06/23 09:13:00) Diastolic Blood Pressure: 74 mm Hg (10/06/23 09:13:00) Blood pressure sites: Arm, left (10/06/23 08:18:00) Mean Arterial Pressure: 87 mm Hg (10/06/23 08:18:00) Pulse Pressure: 40 mm Hg (10/06/23 08:18:00) Oxygen Saturation:??82 %??Low (10/06/23 08:18:00) Liters per Minute: 1 L/min (10/06/23 08:18:00) Mode of Delivery (Oxygen): Nasal cannula (10/06/23 08:18:00) Early Warning Score: 8 (10/06/23 09:14:28) ? Perfusion Assessment Cardiac Rhythm: Normal sinus rhythm, Sinus tachycardia (10/06/23 00:41:00) Cardiovascular: WNL except (10/06/23 12:20:00) Cardiovascular Symptoms: Edema present (10/06/23 12:20:00) ? Basic ADLs Activity Assistance: Maximum assistance, Two person assistance (10/04/23) Ambulatory devices needed: None (10/04/23) Feeding Assistance: Set up (10/05/23) Hygiene: Partial bath, Bobbi care (10/05/23) ? . Physical Exam Constitutional: Alert, in no acute distress. Head EENT: Extraocular muscle movement intact.??Moist mucous membranes.?? Neck: Supple. No JVD. Respiratory: Decreased air entry bilaterally, no wheezing or crackles, no use of accessory muscles,currently on 1 L oxygen via nasal cannula Cardiovascular: S1S2 regular. No murmurs, rubs or gallops. Gastrointestinal: Abdomen soft, non-tender, non-distended. Normal bowel sounds. Genitourinary: No CVA tenderness. Extremities: 1+ lower extremity swelling, mild redness, no signs of cellulitis. Neurologic: AAOx3, Speech normal. No focal neurological deficits. Skin: No rash. Psychiatric: Normal mood and affect Pending Results Add On Lab Order ordered on 10/04/2023 High??Sensitivity??Troponin T ordered on 10/03/2023 Patient Instructions Follow-up Follow-up with your primary care physician in about 1 to 2-week of discharge. ??Call office for appointment. ?? New medication Duloxetine 30 mg daily Continue taking rest of your home medicines as you were doing prior to admission. ?? Recommendations Elevate bilateral lower extremities??to prevent swelling.?? Keith wrap's to bilateral lower extremities??from the level of ankle up to the level of knees. Post Discharge Care Diet: ??Cardiac diet ?? Activity: ??as tolerated ?? Wound Care: ??none ?? Code Status: ??Limited Resuscitation No Intubation & Mechanical Ventilation Other Comfort Measures: wants chest compression ?? Condition: ??stable ?? Prognosis: ??Fair ?? Discharge ?to her alf at 1pm, 10/06/23 12:22:00 EST Results Discharge Labs BLOOD COUNT & DIFF WBC 5.2 k/mm3 ()?? 10/06/2023 05:36 RBC 4.09 m/mm3 (Low)?? 10/06/2023 05:36 Hgb 11.1 Gm/dL (Low)?? 10/06/2023 05:36 Hct 38.5 % ()?? 10/06/2023 05:36 MCV 94.1 femtoliters ()?? 10/06/2023 05:36 MCH 27.1 pg ()?? 10/06/2023 05:36 MCHC 28.8 g/dL (Low)?? 10/06/2023 05:36 Platelet Count 63 k/mm3 (Low)?? 10/06/2023 05:36 RDW-SD 56.6 femtoliters (High)?? 10/06/2023 05:36 MPV 11.0 femtoliters ()?? 10/06/2023 05:36 Nucleated RBC (Automated) 0.0 #/100 WBC'S ()?? 10/06/2023 05:36 Abs. NRBC 0.0 k/mm3 ()?? 10/06/2023 05:36 Abs. Neut 3.7 k/mm3 ()?? 10/06/2023 05:36 Abs. Lymph 0.6 k/mm3 (Low)?? 10/06/2023 05:36 Abs. Baxter 0.7 k/mm3 ()?? 10/06/2023 05:36 Abs. Eo 0.0 k/mm3 ()?? 10/06/2023 05:36 Abs. Baso 0.0 k/mm3 ()?? 10/06/2023 05:36 Neut % 72.1 % ()?? 10/06/2023 05:36 Lymph % 11.8 % (Low)?? 10/06/2023 05:36 Baxter % 14.1 % (High)?? 10/06/2023 05:36 Eos % 0.2 % ()?? 10/06/2023 05:36 Baso % 0.4 % ()?? 10/06/2023 05:36 RBC Morphology SLIGHT ()?? 10/03/2023 15:08 Platelet Estimate DECREASED ()?? 10/03/2023 15:08 Imm Gran 1.4 % ()?? 10/06/2023 05:36 Abs. Imm Gran 0.1 k/mm3 ()?? 10/06/2023 05:36 ?? CARDIAC Nt-Probnp 206 pg/mL ()?? 10/03/2023 15:08 High Sensitivity Troponin (HSTnT) 21 ng/L (High)?? 10/03/2023 21:44 ?? CHEM GENERAL Sodium 143 mmol/L ()?? 10/06/2023 05:36 Potassium 4.3 mmol/L ()?? 10/06/2023 05:36 Chloride 99 mmol/L ()?? 10/06/2023 05:36 Bicarbonate Level 39 mmol/L (High)?? 10/06/2023 05:36 Anion Gap 5 ()?? 10/06/2023 05:36 Glucose Level 132 mg/dL (High)?? 10/06/2023 05:36 BUN 14 mg/dL ()?? 10/06/2023 05:36 Creatinine-Blood 1.2 mg/dL (High)?? 10/06/2023 05:36 Estimated GFR Creatinine 45 ML/MIN/1.73 M2 ()?? 10/06/2023 05:36 Calcium 8.8 mg/dL ()?? 10/06/2023 05:36 Calcium, Ionized pH Corrected 1.19 mmol/L ()?? 10/03/2023 15:08 Magnesium 1.7 mg/dL ()?? 10/03/2023 15:08 Protein, Total 6.0 Gm/dL (Low)?? 10/06/2023 05:36 Albumin 3.6 Gm/dL ()?? 10/06/2023 05:36 AG Ratio 1.5 ()?? 10/06/2023 05:36 Alkaline Phosphatase 82 units/L ()?? 10/06/2023 05:36 AST (SGOT) 29 units/L ()?? 10/06/2023 05:36 ALT (SGPT) 6 units/L ()?? 10/06/2023 05:36 Bilirubin, Total 1.3 mg/dL (High)?? 10/06/2023 05:36 ? ENDOCRINE/TUMOR MARKER TSH 1.62 uIU/mL ()?? 10/03/2023 17:16 ? HEME OTHER Hold Blue Top SPECIMEN DISCARDED AFTER 4 HOURS. ()?? 10/03/2023 15:08 ? MISC. CHEMISTRY Ammonia, Venous 28 ??mole/L ()?? 10/03/2023 17:05 ? UA/URINALYSIS Appear/Color, Urine YELLOW ()?? 10/03/2023 21:58 Specific [place], Urine 1.015 ()?? 10/03/2023 21:58 pH, Urine 6.0 ()?? 10/03/2023 21:58 Albumin, Urine NEGATIVE ()?? 10/03/2023 21:58 Glucose, Urine NEGATIVE ()?? 10/03/2023 21:58 Ketones, Urine NEGATIVE ()?? 10/03/2023 21:58 Bilirubin, Urine NEGATIVE ()?? 10/03/2023 21:58 Hemoglobin, Urine NEGATIVE ()?? 10/03/2023 21:58 Nitrite, Urine NEGATIVE ()?? 10/03/2023 21:58 Leukocyte, Urine NEGATIVE ()?? 10/03/2023 21:58 Urobilinogen NORMAL mg/dL ()?? 10/03/2023 21:58 WBC's, Urine <1 /HPF ()?? 10/03/2023 21:58 RBC's, Urine <1 /HPF ()?? 10/03/2023 21:58 Squamous Epith <1 /HPF ()?? 10/03/2023 21:58 Hyaline Cast 1 LPF ()?? 10/03/2023 21:58 Calcium Oxal SLIGHT /HPF ()?? 10/03/2023 21:58 Mucus SLIGHT /LPF ()?? 10/03/2023 21:58 Hold Urine Culture Testing available 48 hours from time of collection. ()?? 10/03/2023 21:58 ?? URINE OTHER Est Creatinine Clearance 31.34 mL/min ()?? 10/05/2023 03:13 ? VIROLOGY Influenza A PCR NEGATIVE ()?? 10/03/2023 14:02 Influenza B PCR NEGATIVE ()?? 10/03/2023 14:02 RSV PCR NEGATIVE ()?? 10/03/2023 14:02 COVID-19 PCR Specimen Source NASAL ()?? 10/03/2023 14:02 COVID-19 PCR Result NEGATIVE ()?? 10/03/2023 14:02 ? Microbiology ?? COVID-19, RSV, and Flu A/B, Rapid PCR?? Completed?? Source: Nasal Body Site: Nose Collected Dt/Tm: 10/03/2023 13:54 Last Updated Dt/Tm: 10/03/2023 15:35 ? 40??minutes spent on discharge * Caden Amaro RN: PERFORM Event Display: Patient Education/Instruction Authored Date: [id number] Inpatient Adult Discharge Instructions [address] [id number] Name: DOUG BEASLEY VIPIN : 1945 Visit: 10/04/2023 12:13:00 Current Date: 10/06/2023 12:43 Account: [id number] Inpatient Adult Discharge Instructions We would like [...] and their families. Surveys are administered by [employer]. ?? If further treatment with your primary care physician or another doctor is recommended, it is important for you to keep the appointment. Call your primary care physician or return to the Emergency Department immediately if your condition worsens, fails to improve, or new symptoms develop. If you need to find a doctor, you can call [facility] [employer] for a referral at [phone] or toll free at [phone]) or log in to [email or web address].. ?? [facility], in keeping with [facility] guidance, no longer requires face masks for staff, patientsor visitors in most situations. Similiar to time spent indoors at other locations, there is the chance that you were exposed to repiratory viruses during your time with us (such as flu or COVID-19). If you develop symptoms concerning for a viral respiratory infection, please seek testing (and treatment if indicated) from your medical provider or home test kit. ?? You can view and manage your care through the patient portal or by using a health care ramakrishna of your choosing. [employer] is a website that allows you to securely view your medical information including your hospital discharge summary, office visit summaries, medications and follow-up visits. You can also request appointments, renew medications, and request access to your medical information using a health care ramakrishna of your choosing, or just ask a question. You can enroll at [email or web address] or register during your next office visit. You have been discharged from [facility], Patient Care Unit: D6A. If you have any questions regarding these instructions after you leave, please call us and we will be happy to assist you. [facility] Your Care Team Attending Physician Kiet Cormier MD Discharging Providers [facility], Kiet Reason for Admission patient coming from sn[facility]. Patient dealing with lethargy for about a month. Labs have all lissette un[facility]able [facility]. O2 sat at 86% on 2 L Nc. 96% on 4 L. Co2 56-60. 38 lb weight gain in 30 days. Your Diagnosis Fluid overload Lower extremity edema Hypertension History of seizure COPD without exacerbation Tests Performed Below is a partial list of the tests performed during your hospitalization. You may have had other tests and procedures not included in this list. Please discuss all test results with your provider. Ammonia Venous Basic Metabolic Panel Calcium Ionized CBC CBC w/ Differential Comprehensive Metabolic Panel COVID-19, RSV, and Flu A/B, Rapid PCR High??Sensitivity??Troponin T Hold Blue Top Tube Magnesium Level ProBNP TSH TSH with T4 Reflex (Adults Only) Urinalysis w/hold for Urine Culture US Doppler Ext Lower Venous Bilat XR Chest 2 Views Frontal and Lat Primary Care Provider Not on Staff, PCP Advance Directive Health Care Proxy on File Yes - Health Care Proxy Yes - MOLST Discharge Vitals Temperature: 98.2 DegF Height: 158 cm Pulse Rate:??114 bpm??High Weight: 103.1 kg Respiratory Rate: 20 br/min Body Mass Index:??41.3 kg/m2??Critical Systolic Blood Pressure: 114 mm Hg Body surface area: 2.13 Diastolic Blood Pressure: 74 mm Hg ?? Oxygen Saturation:??82 %??Low ?? Studies Pending All tests and labs ordered during this hospital stay have been completed unless listed below. Please discuss all pending results with your provider listed above in these instructions. ?? Add On Lab Order High??Sensitivity??Troponin T What to do next Instructions From Your Doctor Follow-up Follow-up with your primary care physician in about 1 to 2-week of discharge. ??Call office for appointment. ?? New medication Duloxetine 30 mg daily Continue taking rest of your home medicines as you were doing prior to admission. ?? Recommendations Elevate bilateral lower extremities??to prevent swelling.?? Keith wrap's to bilateral lower extremities??from the level of ankle up to the level of knees. Discharge Orders Diet:??Cardiac diet Activity:??as tolerated Wound Care:??none Code Status:??Limited Resuscitation No Intubation & Mechanical Ventilation Other Comfort Measures: wants chest compression Condition:??stable Prognosis:??Fair Discharge Medications DOUG FISHER :1945 Visit Date:10/04/2023 Medications: Please continue your medications until treatment is completed or stopped by your provider. Medications not listed below should be discontinued. Discuss any questions related to medications with your provider. What How Much When Instructions Next Dose New Duloxetine (duloxetine 30 mg oral enteric coated capsule) 1 capsule Oral Daily 10/07/23 9AM Changed Albuterol (albuterol 0.083% inhalation solution) 3 Milliliter Inhalation Every 6 hours as needed as needed Changed Albuterol (ProAir HFA 90 mcg/ inh inhalation aerosol) 1 puff(s) Inhalation Twice a day 10/06/23 9PM Changed Albuterol/ Ipratropium (albuterol-ipratropium 3 mg-0.5 mg/ 3 ml inhalation solution) 3 Milliliter Nebulized inhalation Every 8 hours as needed for Wheezing/Shortness of Breath as needed Changed Furosemide (furosemide 40 mg oral tablet) 1 tab(s) Oral Twice a day 10/06/23 9PM Changed Gabapentin (gabapentin 300 mg oral capsule) 1 capsule Oral 3 times a day 10/06/23 9PM Changed Lactulose (lactulose 10 gm/ 15 ml oral syrup) 30 Milliliter Oral 3 times a day 10/06/23 3PM Changed Metoprolol (Metoprolol Tartrate 25 mg oral tablet) 1 tab(s) Oral Daily (Not ER) ?? 10/07/23 9AM Unchanged Acamprosate (acamprosate 333 mg oral delayed release tablet) 1 tab(s) Oral 3 times a day 10/06/23 9PM Unchanged Benzonatate (benzonatate 200 mg oral capsule) 1 capsule Oral 3 times a day 10/06/23 9PM Unchanged Bisacodyl (bisacodyl 10 mg rectal suppository) 1 suppository(ies) Per rectum Every 72 hours as needed for if no BM in 3 days Step 2 ?? as needed Unchanged Cetirizine (cetirizine 10 mg oral tablet) 1 tab(s) Oral Daily 10/07/23 9AM Unchanged Diclofenac Topical (diclofenac 1% topical gel) apply to Hips Topically Every 6 hours as needed for pain as needed Unchanged Escitalopram (escitalopram 20 mg oral tablet) 1 tab(s) Oral Daily 10/07/23 9AM Unchanged Fluticasone Nasal (Flonase Allergy Relief 50 mcg/ inh nasal spray) 1 spray(s) Nares, Both Twice a day 10/06/23 9PM Unchanged fluticasone/ umeclidinium/ vilanterol (Trelegy Ellipta 200 mcg-62.5 mcg-25 mcg/ inh inhalation powder) 1 puff(s) Inhalation Daily 10/07/23 9AM Unchanged Folic Acid (folic acid 1 mg oral tablet) 1 tab(s) Oral Daily 10/07/23 9AM Unchanged Guaifenesin (Camryn-Tussin Expectorant 100 mg/ 5 mL oral liquid) 10 Milliliter Oral Every 6 hours as needed for Cough as needed Unchanged Guaifenesin (Mucinex 600 mg oral tablet, extended release) 1 tab(s) Oral Every 12 hours 10/06/23 9PM Unchanged levETIRAcetam (levETIRAcetam 500 mg oral tablet) 1 tab(s) Oral Twice a day 10/06/23. 9PM Unchanged Lidocaine Topical (lidocaine 5% topical film) Bilateral Hips Topically Daily on for 12 hours & off for 12 hours ?? 10/07/23 9AM Unchanged Methyl Salicylate-Menthol Topical (Muscle Rub 10%-15% topical cream) Right Side Neck Topically As needed for as needed for pain as needed Unchanged Milk of Magnesia (MOM Liquid) 30 Milliliter Oral Every 72 hours as needed for if no BM in 3 days Step 1 ?? as needed Unchanged Multivitamin With Minerals (Centrum Adults) 1 tab(s) Oral Daily 10/07/23 9AM Unchanged nalOXONE (Narcan 4 mg/ 0.1 mL nasal spray) 4 Milligram Naris, Left Once as needed for as needed as needed Unchanged Nystatin Topical (nystatin topical 165522 u/ gm powder) Bobbi area Topically 3 times a day 10/06/23 3PM Unchanged Ocular Lubricant (Artificial Tears preserved solution) 1 Drops Both eyes 3 times a day 10/06/23 3PM Unchanged Oxycodone (oxyCODONE 5 mg oral tablet) 1 tab(s) Oral Every 4 hours as needed for moderate to severe pain >5 on pain scale as needed Unchanged Pantoprazole (pantoprazole 40 mg oral delayed release tablet) 1 tab(s) Oral Daily 10/07/23 9AM Unchanged Sodium Biphosphate-Sodium Phosphate (Fleet Enema 19 gm-7 gm rectal enema) 1 Each Per rectum Every 72 hours as needed for if no BM in 3 days Step 3 ?? as needed Unchanged Thiamine (Vitamin B1 100 mg oral tablet) 1 tab(s) Oral Daily 10/07/23 9AM Unchanged Tizanidine (tiZANidine 2 mg oral tablet) 1 tab(s) Oral Every 8 hours as needed for Spasm as needed Unchanged Trazodone (traZODone 50 mg oral tablet) 1 tab(s) Oral Daily at Bedtime 10/06/23 9PM Test Results Below is a partial list of the most recent Laboratory test results done prior to this discharge. You may have had other tests and procedures not included in this list. Please discuss all test resultswith your provider. Est Creatinine Clearance - 31.34 mL/min (10/05/2023) Ammonia Venous (10/03/2023) ???Ammonia, Venous - 28 ??mole/L Basic Metabolic Panel (10/05/2023) ???Sodium - 141 mmol/L???Potassium - 3.3 mmol/L???Chloride - 100 mmol/L???Bicarbonate Level - 35 mmol/L???Anion Gap - 6???Glucose Level - 127 mg/dL???BUN - 13 mg/dL???Creatinine-Blood - 1.2 mg/dL???Estimated GFR Creatinine - 48 ML/MIN/1.73 M2???Calcium - 8.4 mg/dL Calcium Ionized (10/03/2023) ???Calcium, Ionized pH Corrected - 1.19 mmol/L CBC (10/05/2023) ???WBC - 3.6 k/mm3???RBC - 3.93 m/mm3???Hgb - 10.5 Gm/dL???Hct - 36.2 %???MCV - 92.1 femtoliters???MCH - 26.7 pg???MCHC - 29.0 g/dL???Platelet Count - 55 k/mm3???RDW-SD - 54.8 femtoliters???MPV - 10.8 femtoliters???Nucleated RBC (Automated) - 0.0 #/100 WBC'S???Abs. NRBC - 0.0 k/mm3 CBC w/ Differential (10/06/2023) ???WBC - 5.2 k/mm3???RBC - 4.09 m/mm3???Hgb - 11.1 Gm/dL???Hct - 38.5 %???MCV - 94.1 femtoliters???MCH - 27.1 pg???MCHC - 28.8 g/dL???Platelet Count - 63 k/mm3???RDW-SD - 56.6 femtoliters???MPV - 11.0 femtoliters???Nucleated RBC (Automated) - 0.0 #/100 WBC'S???Abs. NRBC - 0.0 k/mm3???Abs. Neut - 3.7 k/mm3???Abs. Lymph - 0.6 k/mm3???Abs. Baxter - 0.7 k/mm3???Abs. Eo - 0.0 k/mm3???Abs. Baso - 0.0 k/mm3???Neut % - 72.1 %???Lymph % - 11.8 %???Baxter % - 14.1 %???Eos % - 0.2 %???Baso % - 0.4 %???Imm Gran - 1.4 %???Abs. Imm Gran - 0.1 k/mm3 Comprehensive Metabolic Panel (10/06/2023) ???Sodium - 143 mmol/L???Potassium - 4.3 mmol/L???Chloride - 99 mmol/L???Bicarbonate Level - 39 mmol/L???Anion Gap - 5???Glucose Level - 132 mg/dL???BUN - 14 mg/dL???Creatinine-Blood - 1.2 mg/dL???Estimated GFR Creatinine - 45 ML/MIN/1.73 M2???Calcium - 8.8 mg/dL???Protein, Total - 6.0 Gm/dL???Albumin - 3.6 Gm/dL???AG Ratio - 1.5???Alkaline Phosphatase - 82 units/L???AST (SGOT) - 29 units/L???ALT(SGPT) - 6 units/L???Bilirubin, Total - 1.3 mg/dL COVID-19, RSV, and Flu A/B, Rapid PCR (10/03/2023) ???Influenza A PCR - NEGATIVE???Influenza B PCR - NEGATIVE???RSV PCR - NEGATIVE???COVID-19 PCR Specimen Source - NASAL???COVID-19 PCR Result - NEGATIVE High??Sensitivity??Troponin T (10/03/2023) ???High Sensitivity Troponin (HSTnT) - 21 ng/L Hold Blue Top Tube (10/03/2023) ???Hold Blue Top - SPECIMEN DISCARDED AFTER 4 HOURS. Magnesium Level (10/03/2023) ???Magnesium - 1.7 mg/dL ProBNP (10/03/2023) ???Nt-Probnp - 206 pg/mL TSH (10/03/2023) ???TSH - 1.62 uIU/mL TSH with T4 Reflex (Adults Only) (10/03/2023) ???TSH - 1.94 uIU/mL Urinalysis w/hold for Urine Culture (10/03/2023) ???Appear/Color, Urine - YELLOW???Specific [place], Urine - 1.015???pH, Urine - 6.0???Albumin, Urine - NEGATIVE???Glucose, Urine - NEGATIVE???Ketones, Urine - NEGATIVE???Bilirubin, Urine - NEGATIVE???Hemoglobin, Urine - NEGATIVE???Nitrite, Urine - NEGATIVE???Leukocyte, Urine - NEGATIVE???Urobilinogen - NORMAL? ?WBC's, Urine - <1 /HPF? ?RBC's, Urine - <1 /HPF? ?Squamous Epith - <1 /HPF? ?Hyaline Cast - 1 LPF???Calcium Oxal - SLIGHT???Mucus - SLIGHT???Hold Urine Culture - Testing available 48 hours from time of collection. Immunizations This Visit Given Vaccine Date influenza virus vaccine, inactivated 10/05/2023 Allergies (NKA means No Known Allergies) Tuberculin Nya Test Tylenol codeine??(Syncope) Problems Active Problems??(18) Acute chest pain?? Acute chest pain?? Alcoholism?? Altered mental status?? ASTHMA?? Chest pain?? COPD, severe?? Depression?? Hepatitis C?? HYPERTENSION?? Liver cirrhosis?? Nausea ??787.02?? Respiratory failure with hypoxia?? Severe obesity?? Stroke?? Subacute infective endocarditis?? Thrombocytopenia?? Unresponsiveness?? Education Materials Below is the list of Educational Leaflet Providered with your Discharge Instructions. Discharge Instructions:??COPD?? Valuables and Belongings I fully understand and agree that [facility] accepts no responsibility for all my personal [...] to send valuables and belongings home. ?? No Valuables/Belongings: No valuables/belongings present Review of Valuable and Belonging List: With patient, With witness Date for Pt to Sign Valuables/Belongings: 10/04/23 12:35:00 ?? Other Discharge Information ? Case Management Discharge Plan?? Discharge Plan?? Discharge Level of Care at Discharge: [facility] facility Discharge Rx Program: Discharge Prescription Program Discharge Transportation Arranged: [facility] [address] [facility] [id number] [phone] Mode of Transportation Arranged: Ambulance Discharge Arranged Transport Date/Time: 10/06/23 12:30:00 Discharge Nursing Homes/Rehab Facilities: [facility] ?? Pulmonary Rehab Status?? Pulmonary Rehab Discharge Status?? [...] are strongly encouraged to quit. Please call [facility] [employer] at [phone] or [phone]) or log in to [email or web address] for referrals to smoking cessation programs. ?? 051 Suicide & Crisis Lifeline is available 30/05 if you or someone you know needs to find a reason to keep living. By calling 738 you'll be connected to a skilled, trained counselor at a crisis center in your area. INPATIENT DISCHARGE INSTRUCTIONS SIGNATURE PAGE DOUG FISHER Location:[facility] Registration Date and Time:10/04/2023 12:13 EST Primary Care Physician: Not on Staff, PCP Attending Physician: Kiet Cormier MD, I DOUG FISHER, have received the above patient education materials/instructions and haveverbalized understanding. If ambulance or transport services are being used I further acknowledge being given a choice of service. ?? If you need to contact me, please call me at this number: . Patient/Meter Shop Supervisor Name: Patient/Meter Shop Supervisor Signature: Relationship to Patient: Witness Name/Signature: Date: * Caden Amaro RN: PERFORM Event Display: Patient Education Leaflets Authored Date: [id number] Discharge Instructions:??COPD ?? [address] Discharge Instructions:??COPD You have been diagnosed with chronic obstructive pulmonary disease (COPD). This group of diseases that limit the flow of air in and out of your lungs. This makes it harder to breathe. With COPD, you are also more likely to get lung infections. COPD includes chronic bronchitis and emphysema. COPD is??most often caused by heavy, long-term cigarette smoking. Home care Quit??smoking ??? If you smoke, get help to quit. It's the best thing you can do for your COPD and your overall health. ??? Join a program to stop smoking. There are even telephone, text message, and online programs to help you quit. ??? Ask your??healthcare provider??about medicines or other methods to help youquit. ??? Ask family members to quit smoking as well. ??? Don't allow people to smoke in your home,in your car,??or when they are around you. ??? Don't use e-cigarettes and vaping products because their long-term risks aren't known. Protect yourself from infection ??? Wash your hands often. Do your best to??keep your hands away from your face. Most germs are spread from your hands to your mouth. ??? Get a flu shot every year. Also ask your??healthcare providerabout pneumonia vaccines and the most recent COVID vaccine. ??? Stay away from crowds. It's especially important to do this in the winter when more people have colds and flu. ??? Get enough sleep, exercise regularly, and eat a balanced diet to stay healthy. : o Get about 8 hours of sleep every night. o Try to exercise for at least 30 minutes on most days. Ask your healthcare provider what type ofexercise is safe for you. o Have healthy foods, including fruits and vegetables, 100% whole grains,lean meats and fish, and low-fat dairy products. Try to stay away from foods high in fats and sugar. Eating a healthy, balanced diet is important to staying as healthy as possible. So is trying to stay at your ideal weight. Being overweight or underweight can affect your health. Take your medicines and use oxygen therapy Take your medicines exactly as directed. Don't skip doses. Talk with your healthcare provider during each appointment about how well you can: ??? Correctly use your inhaler. This is to make sure you are getting the correct medicine dose. ???[place] with other conditions you have and their treatments and if they affect your COPD Use oxygen correctly if you use it. That means the amount you use and the length of time you use it. ??? Discuss long-term oxygen therapy with your provider. ??? Don???t allow smoking in your home, inyour car, or around you. This is very important if you use oxygen. Try to stay away from things that may affect your breathing. Stay away from indoor and outdoor pollution. Indoor pollution includes burning wood, smoke from home cooking, and heating fuels. Outdoor pollution includes smoke, dusts, vapors, fumes, gases, and other chemicals. It also includes cold weather, high humidity, and allergens. Drink at least 8 glasses of fluid every day to keep mucus thin unless your provider has told you otherwise. Ask about other things that can help. Ask your provider to show you how to breathe through pursed lips to help decrease shortness of breath. Manage your stress Stress can make COPD worse. Use this stress management method: ??? Find a quiet place and sit or lie in a comfortable position. ??? Close your eyes and do breathing exercises for several minutes. Ask your provider about the best way to breathe. Talk to your healthcare provider about your ability to cope in your normal environment. ?? Pulmonary rehabilitation ??? Pulmonary rehab can help you feel better. Programs that are based in the community or at home work as well as those based in a hospital as long as they are held as often and are at the same intensity. Standard pulmonary rehab programs based at home help with breathing problems in people with COPD. Traditional supervised pulmonary rehab is still the best choice for people with COPD. These programs include exercise, breathing methods, information about COPD, counseling, and help for smokers. ??? Ask??your provider or your local hospital about programs in your area. Also talk with your healthcare provider about a self-management program to help control your symptoms. ?? When to call your healthcare provider Call your??provider right away if you have: ??? More mucus ??? Yellow, green, bloody, or smelly mucus ??? Fever of 100.4??F (38??C) or higher, or as directed by your healthcare provider ??? Chills ??? Swollen ankles ??? Increased cough ?? Call 911 Call 911 if you have: ??? Shortness of breath, wheezing, or trouble breathing that gets worse or doesn't get better with treatment ??? Tightness in your chest that does not go away with your normal medicines, or as directed by your healthcare provider ??? A new irregular heartbeat or feeling that your heart is racing ??? Trouble talking ??? Feeling lightheaded or dizzy ??? Feeling of doom ??? Skin turning blue, johnson, or purple ?? Last Reviewed Date: 2023 ?? 8184-1568 [employer]. All rights reserved. This information is not intended as a substitute for professional medical care. Always follow your healthcare professional's instructions. ?? Patient Care team information Care Team Personnel Name: Imelda Mayo Position: [facility] Onco RN Member Role: Primary Care Nurse Name: Maggie Lambert RN Position: [facility] RN Member Role: Primary Care Nurse Name: Krystal Bruner RN Position: [facility] RN Member Role: Primary Care Nurse Name: Dallas Dennis RN Position: [facility] ED RN W/OE and Tasks Member Role: Primary Care Nurse Name: Dilia Bond RN Position: [facility] AMB Nurse Member Role: Primary Care Nurse Name: Chelly Dickerson RN Position: [facility] RN Member Role: Primary Care Nurse Name: Lary Johnson RN Position: [facility] RN Member Role: Primary Care Nurse Name: Irlanda Hauser RN Position: [facility] RN Member Role: Primary Care Nurse Name: Claire Jarrell RN Position: [facility] SN RN Member Role: Primary Care Nurse Name: Rosita AIRCRAFT PAINTERCharo Position: [facility] PCO Associate Professional Member Role: Primary Care Nurse Address: Address: [address] [place] [address] Name: Holly Alvarez RN Position: [facility] RN Member Role: Primary Care Nurse Name: Mary Alice Martins RN Position: [facility] Radiology Nurse Member Role: Primary Care Nurse Name: Not on Staff, PCP Position: [facility] Physician (General Medicine) Member Role: PCP Name: Kate Agosto RN Position: [facility] RN Member Role: Primary Care Nurse Name: Brenda Licona RN Position: [facility] SN RN Member Role: Primary Care Nurse Name: Marjorie Patton RN Position: [facility] RN Member Role: Primary Care Nurse Name: Rosy Mcneill RN Position: [facility] RN Member Role: Primary Care Nurse Name: ErvinKiet Prescott Attending Position: [facility] ED Medicine MD Name: Theresa Alvarenga RN Position: [facility] ED RN W/OE and Tasks Member Role: Patient Care Provider Name: Ginny Lee Position: [facility] ED OA Charge Member Role: ED Associate Name: Berny Montejo RN Position: [facility] ED RN W/OE and Tasks Member Role: Patient Care Provider Name: Eleanor Benítez Position: [facility] ED TA [facility] Member Role: Jewelry Maker Care Team Related Persons Name: ALBINA BEASLEY Address: [place] [address]
--- OUTSIDE RECORDS SUMMARY | 2024-10-05 16:03 | XMS_ITS | Continuity of Care Document ---
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 Start Date: 10/06/23 Status: Ordered albuterol CFC free 90 mcg/inh inhalation aerosol 180 mcg, 2, puffs, Inhalation, Every 4 hours, PRN, Refills 0, Maintenance, 10/08/23 9:25:00 EST, Inhaler Start Date: 10/08/23 Status: Ordered albuterol-ipratropium 3 mg-0.5 mg/3 ml inhalation solution 3 mL, Neb, Every 6 hours, PRN Wheezing/Shortness of Breath, Maintenance, 01/06/23 [...] 10/06/23 Status: Ordered diclofenac 1% topical gel 1 application, Topically, Every 6 hours, PRN Pain , Mild, Maintenance, 10/06/23 11:46:00 EST, Gel, Partial fill upon patient request if the [...] oral capsule 300 mg, Capsule, By Mouth, 10/11/23 9:00:00 EST Start Date: 10/11/23 Stop Date: 10/11/23 Status: Completed gabapentin 300 mg oral capsule [...] opioid drug. Start Date: 10/06/23 Status: Ordered Metoprolol Tartrate 25 mg oral tablet 1 tablet = 25 mg, By Mouth, Daily, Maintenance, 10/06/23 11:39:00 EST, Partial fill upon [...] opioid drug. Start Date: 10/06/23 Status: Ordered Mucinex 600 mg oral tablet, extended release [...] Start Date: 10/06/23 Status: Ordered nystatin topical 307401 u/gm powder 1 application, Topically, 2 times a day, Maintenance, 10/06/23 11:45:00 EST, Powder, Partial fill upon patient request if the prescription is for a schedule II opioid drug. Start Date: 10/06/23 Status: Ordered oxyCODONE 5 mg oral tablet 5 mg, 1, tablet, By Mouth, Every 6 hours, PRN, for 5 days, # 10 tablet, Refills 0, Tot. Refills 0, Acute 10/16/23 8:34:00 EST, moderate to severe pain >5 on pain scale, 10/11/23 8:34:00 EST, PrintRequisition, Partial fill upon patient request if the... Start Date: 10/11/23 Stop Date: 10/16/23 Status: Ordered pantoprazole 40 mg oral delayed release tablet 1 tablet = 40 mg, By Mouth, Daily, Maintenance, 01/06/23 13:53:00 EST Start Date: 01/06/23 Status: Ordered spironolactone 25 mg oral tablet 25 mg, By Mouth, Daily, Refills 0, Maintenance, 10/08/23 9:25:00 EST, Partial fill upon patient request if the prescription is for a schedule II opioid drug. Start Date: 10/08/23 Status: Ordered tiZANidine 2 mg oral tablet 2 mg, 1, tablet, By Mouth, Every 8 hours, PRN, Maintenance, Spasm, 10/06/23 11:29:00 EST, Partial fill upon patient request if the prescription is for a schedule II opioid drug. Start Date: 10/06/23 Status: Ordered Toprol XL 25 mg oral tablet, extended release 25 mg, XL Tablet, By Mouth, 10/11/23 9:00:00 EST Start Date: 10/11/23 Stop Date: 10/11/23 Status: Completed traZODone 50 mg oral tablet 50 mg, [...] Confirmed Active Altered mental status Confirmed Active Obesity hypoventilation syndrome Confirmed Active Respiratory failure with hypoxia and hypercapnia Confirmed Active ASTHMA Confirmed Active Morbid obesity with BMI of 40.0-44.9, adult Confirmed Active Stroke Confirmed Active Chest pain Confirmed 07/28/12 Active Liver cirrhosis Confirmed Active Depression Confirmed Active Hepatitis C Confirmed Active HYPERTENSION Confirmed Active Respiratory failure with hypoxia Confirmed Active Subacute infective endocarditis Confirmed Active Thrombocytopenia Confirmed Active Seizure disorder Confirmed Active COPD, severe Confirmed Active Severe obesity Confirmed Active Unresponsiveness Confirmed Active Results Radiology Reports * Exam Date Time Procedure Performing Provider Status 10/07/23 6:14 PM US Ascites Christin Napoles (Verified) Notes: (US Ascites) Reason For Exam: Ascites RESULT: US Ascites US Ascites REASON: Ascites; Clinical Question(s): Cirrhosis; Special Instructions: please evaluate for ascites COMPARISON: CT from 01/06/2023 TECHNIQUE: Grayscale limited abdominal ultrasound of the 4 quadrants. FINDINGS: No ascites is seen. IMPRESSION: No ascites. WSN: [id number] Ordering Physician: Fawad Wen Dictated By: Levi Andrade MD Dictated Date/Time: 10/07/23 7:37 pm Reviewed By: Levi Andrade MD Signed By: Levi Andrade MD Signed Date/Time: 10/07/23 7:37 pm Transcribed By: EVY Transcribed Date/Time: 10/07/23 7:37 pm * Exam Date Time Procedure Performing Provider Status 10/07/23 2:[address] Head/Brain W/O Contrast Argenis Andrew; Auth (Verified) Notes: (CT Head/Brain W/O Contrast) Reason For Exam: Trauma RESULT: CT Head/Brain W/O Contrast CT Head/Brain W/O Contrast INDICATION: Pt coming from [facility] with c o AMS x 1 day. Recent hospitalization here for fluid overload, d c yesterday back to SNF; Reason: Trauma; Clinical Question(s): Hematoma; Order Comment: TECHNIQUE: Noncontrast head CT using axial technique and reconstructed in axial and coronal planes.Iterative reconstruction techniques are used to optimize dose and image quality. CTDIvol Head: 45.50 mGy, DLP Head: 772 mGy*cm. COMPARISON: 01/06/2023 FINDINGS: Study is degraded by patient motion artifact. Packing Floor Worker view findings, lines and tubes: None. BRAIN AND EXTRA-AXIAL SPACES: No parenchymal hemorrhage, midline shift, or mass effect. Unchanged calcifications within the left frontal lobe, likely from prior trauma or infection. Donahue-white matter differentiation is well preserved. No acute infarct. Negative insular ribbon sign. Atherosclerotic vascular calcification of the carotid arteries but negative hyperdense vessel sign. Mild prominence of the ventricles and sulci consistent with parenchymal volume loss. Mild low-density white matter changes. No subarachnoid hemorrhage. No subdural or epidural collection. CALVARIUM, SKULL BASE, AND SOFT TISSUES: No fractures or suspicious bony lesions. Moderate mucosal thickening of the left sphenoid sinus. Mild mucosal thickening of the right sphenoid sinus. Right prosthetic globe. The extracranial soft tissues are unremarkable. IMPRESSION: No acute intracranial pathology. I have personally reviewed the images and I agree with this report. WSN: [id number] Ordering Physician: Eleanor Baig Dictated By: Nathaniel Diggs MD Dictated Date/Time: 10/07/23 2:29 pm Reviewed By: Khari Duran MD Signed By: Khari Duran MD Signed Date/Time: 10/07/23 2:34 pm Transcribed By: EVY Transcribed Date/Time: 10/07/23 2:19 pm * Exam Date Time Procedure Performing Provider Status 10/07/23 1:37 PM Chest 2 Views Frontal and Lat Babatunde , Mile; Auth (Verified) Notes: (Chest 2 Views Frontal and Lat) Reason For Exam: Shortness of Breath RESULT: Chest 2 Views Frontal and Lat Examination: Chest performed on 1223. History: Altered mental status. A fluid overload. Findings: Frontal and lateral views of the chest are compared to a prior study dated 10/03/2023. The cardiac silhouette is enlarged. There is widening of the right paratracheal stripe. Pulmonary vascular congestion have developed since the prior study. There are no focal infiltrates or pleural effusions. The osseous structures are grossly unremarkable. IMPRESSION: Widening of the superior mediastinum which may be due to engorgement of the vascular structures. Pulmonary vascular congestion. WSN: [id number] Ordering Physician: Eleanor Baig Dictated By: Radha Hong MD Dictated Date/Time: 10/07/23 1:52 pm Reviewed By: Radha Hong MD Signed By: Radha Hong MD Signed Date/Time: 10/07/23 1:52 pm Transcribed By: EVY Transcribed Date/Time: 10/07/23 1:52 pm Vital Signs Most recent to oldest [Reference Range]: 1 2 3 Height 157 cm (10/11/23 9:50 AM) 157 cm (10/11/23 9:17 AM) 157 cm (10/11/23 4:30 AM) Weight 101.5 kg (10/08/23 3:50 AM) Oxygen Saturation [94-100 %] 97 % (10/11/23 9:50 AM) 99 % (10/11/23 9:17 AM) 95 % (10/11/23 4:30 AM) Pulse Rate [55-90 bpm] 77 bpm (10/11/23 9:50 AM) 88 bpm (10/11/23 9:26 AM) 74 bpm (10/11/23 4:30 AM) Body Mass Index [18.5-24.99 kg/m2] 41.18 kg/m2 *>HHI* (10/08/23 3:50 AM) Blood Pressure [90-138/55-84 mm Hg] 110/54mm Hg (10/11/23 9:50 AM) 110/56mm Hg (10/11/23 9:17 AM) 110/54mm Hg (10/11/23 4:30 AM) Respiratory Rate [16-30 br/min] 20 br/min (10/11/23 9:50 AM) 18 br/min (10/11/23 9:26 AM) 18 br/min (10/11/23 4:30 AM) Temperature [96.8-100.4 DegF] 98.0 DegF (10/11/23 9:50 AM) 98.5 DegF (10/11/23 4:30 AM) 98.3 DegF (10/10/23 10:03 PM) Liters per Minute 2 L/min (10/11/23 9:50 AM) 2 L/min (10/11/23 9:17 AM) 2 L/min (10/10/23 10:03 PM) Mode of Delivery (Oxygen) Nasal cannula (10/11/23 9:50 AM) Nasal cannula (10/11/23 9:17 AM) CPAP (10/11/23 4:30 AM) Blood pressure sites Arm, right (10/11/23 9:50 AM) Arm, left (10/11/23 4:30 AM) Arm, right (10/10/23 10:03 PM) Temperature Route Oral (10/11/23 9:50 AM) Oral (10/11/23 4:30 AM) Oral (10/10/23 10:03 PM) Dry Weight 101.5 kg (10/08/23 3:50 AM) Social History Social History Type Response Smoking Status Former smoker, quit more than 30 days ago entered on: 10/12/21 Sex Admission evaluation note * Fawad Wen MD: PERFORM Event Display: Admission Note Authored Date: Patient: ??BEASLEY DOUG LEW ? Age:??78 Years?Sex:??Female?:??1945?? History of Present Illness 78 year old??obese female??resident??of[facility]in[place] and who has??a history of alcoholic liver cirrhosis, hepatitis C, COPD (on 2 L of oxygen via nasal cannula), seizure disorder, hypertension and remote history of endocarditis, discharged yesterday from a four day admission for vol overload s/p diuresis, now returning with confusion. ?? The SNF reports that she does not frequently get confused according to the nurse I spoke with. He did not have specifics about the circumstances of her return. It appears she was gradually more confused than normal. ?? In the ED: T 98.8 BP 111/80 HR 75 RR 18 O2 95% 4LNC WBC 3.9 HGB 11.1, PLT 65 (at baseline) CO2 38 Cr 1.0 bili 1.4 (at baseline) Ammonia 55 UA clean CXR showed pulm vasc congestion CT head negative She was given lasix 20mg IV x1 ?? ROS: As above, rest of full review negative. ?? 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 Physical Exam GEN: Comfortable in bed HEENT: Moist membranes HEART: Warm extremities LUNGS: Breathing comfortably 2L NC ABD: Soft, nontender : No beverly EXT: Warm, no edema NEURO: Alert, waxing and waning orientation, tangential speech PSYCH: Alternately agitated Assessment/Plan 78 year old??obese female??resident??of[facility]??in[place] and who has??a history of alcoholic liver cirrhosis, hepatitis C, COPD (on 2 L of oxygen via nasal cannula), seizure disorder, hypertension and remote history of endocarditis, discharged yesterday from a four day admission for vol overload s/p diuresis, now returning with confusion. ?? Altered mental status (R41.82):??d Appears gradual onset since discharge, waxing and waning in the ED. One moment she's oriented x 3, and soon after??pulled her IV and started swatting at nurses. Ammonia barely above??upper limit of normal and not consistent with hepatic encephalopathy. No signs of infection, however she may have ascites/SBP, which would explain recent admission for vol overload that showed a relatively normal echo and not a convincing exam for CHF. I don't see any medications that could be causing delirium. Outpt record shows Xanax, though only 0.5mg and she wasn't getting Xanax inpatient, so I doubt this is contributing. She may be retaining CO2, though the agitation doesn't quite fit, bicarb is roughly bas lyndsey at 38. Seems unlikely seizure related/ - f/u VBG - f/u abd ultrasound looking for ascites and SBP - haldol x1?? -??olanzapine 7.5mg??x1 - hold gabapentin - hold oxycodone - cont home trazodone HS - hold tizanidine ?? Pulm vasc congestion: - cont lasix 40mg po, would more aggressively diurese once confusion resolves ?? Seizure: - cont Keppra ?? Cirrhosis (K74.60):?? Appears compensated. - cont lactulose ?? COPD without exacerbation (J44.9):??d - duonebs prn ? Mood: - cont duloxetine and escitalopram ?? HTN: - cont metoprolol ? CODE - presumed full DVT - low risk DIET - regular ? Histories Past Medical History/Problem List Active Problems??(18) Acute chest pain Acute chest pain Alcoholism Altered mental status ASTHMA Chest pain COPD, severe Depression Hepatitis C HYPERTENSION Liver cirrhosis Nausea ??787.02 Respiratory failure with hypoxia Severe obesity Stroke Subacute infective endocarditis Thrombocytopenia Unresponsiveness ? Medications Home Medications Acamprosate (acamprosate 333 [...] Left?Once?as needed?as needed Nystatin Topical (nystatin topical 053297 u/gm powder)?Bobbi area?Topically?3 times a day Ocular [...] mg oral tablet)?50?Milligram?1?tablet?By Mouth?Daily at bedtime ? Inpatient Medications Medications (11) Active SCHEDULED: (10) Benzonatate 100 mg Capsule (benzonatate 100 mg oral capsule) ??200 mg, By Mouth, 3 times a day Duloxetine 30 mg Capsule (Duloxetine) ??30 mg, By Mouth, Daily Escitalopram 10 mg Tablet (escitalopram 10 mg oral tablet) ??20 mg, By Mouth, Daily Furosemide 40 mg Tablet (furosemide 40 mg oral tablet) ??40 mg, By Mouth, 2 times a day Keppra 500mg Tablet (levETIRAcetam 500 mg oral tablet) ??500 mg, By Mouth, 2 times a day Lactulose 20 Gm/30mL Syrup (lactulose 10 gm/15 ml oral syrup) ??20 Gm 30 mL, By Mouth, 3 times a day Metoprolol 25 mg XL Tablet (Toprol XL 25 mg oral tablet, extended release) ??25 mg, By Mouth, Daily Olanzapine 7.5mg Tablet (olanzapine 7.5 mg oral tablet) ??7.5 mg, By Mouth, Once Pantoprazole 40 mg EC Tablet (pantoprazole 40 mg oral delayed release tablet) ??40 mg, By Mouth, Daily Trazodone 50 mg Tablet (traZODone 50 mg oral tablet) ??50 mg, By Mouth, Daily at bedtime CONTINUOUS: (0) PRN: (1) Bisacodyl 10 mg Suppository (Bisacodyl Supp) ??10 mg 1 supp, Rectally, Every 72 hours ? EKG study * Event Display: ECG 12-Lead Please click on pdf link to open report * Event Display: ECG 12-Lead Ventricular Rate: 72 BPM Atrial Rate: 72 BPM P-R Interval: 144 ms QRS Duration: 84 ms Q-T Interval: 406 ms QTC Calculation(Bazett): 444 ms P [place]: 22 degrees R [place]: 2 degrees T [place]: 34 degrees Normal sinus rhythm Cannot rule out Anterior infarct , age undetermined Abnormal ECG When compared with ECG of 03-OCT-2023 14:07, MANUAL COMPARISON REQUIRED, DATA IS UNCONFIRMED [place]: , Cardiology * Event Display: Cardiac Rhythm Strips Authored Date: Hospital Progress note * Aurelia No RN: PERFORM, SIGN, VERIFY Event Display: Progress Note Hospital Authored Date: Patient: DOUG FISHER Age: 78 years Sex: Female : 1945 Associated Diagnoses: None Author: Aurelia No RN Findings Narrative/Incidental Patient is alert and oriented x3, able to communicate needs. Pt medicated per JAN. Patient appear to be resting in bed at this time. Vital signs stable, Safety checks completed, bed in lowest position, bed alarm on, Call laureano within reach. See biophysical assessment. Pt transfer to S3 discharge unit at this time. Report given to S3, RN .. * Aurelia No RN: PERFORM, SIGN, VERIFY Event Display: Progress Note Hospital Authored Date: Patient: DOUG FISHER Age: 78 years Sex: Female : 1945 Associated Diagnoses: None Author: Aurelia No RN Findings Problem Related to Alteration in Fluid Electrolyte : Alteration in Fluid Electrolyte Func/new 10/10/2023 15:00 EST Alteration Fluid Electrolytes Related to Fluid Volume Excess Goals & Outcomes, Fluid/Electrolyte Blood glucose levels will stabilize during hospitalization,Vital signs, electrolytes & glucose levels will stabilize, Pt will maintain adequate GI/ function appropriate for pt, Pt will maintain skin turgor, Pt will state importance of adhering to medication regime, Pt will maintain hydration during fluid restriction Interventions, Fluid Electrolyte monitor for s/s of anemia: weakness, fatigue,, monitor for s/s of hyper/hypokalemia, monitor for s/s of hypo or hyperglycemia BH Goals/Interventions,Fluid Electrolyte Yes Fluid Electrolyte, Problem Start 10/09/2023 9:55 Reviewed plan with, Fluid Electrolyte Patient Patient Progression, Fluid Electrolyte Pt progressing according to plan . Evaluation Patient is alert and oriented x3, able to communicate needs. Pt denies chest pain, medicated per MAR. pt maintained on 2LNC per order. Patient appear to be resting in bed at this time. Vital signs stable, Safety checks completed, bed in lowest position, bed alarm on, Call laureano within reach. See biophysical assessment.. * Evens Perkins MD, Heidi: PERFORM Event Display: Progress Note Hospital Authored Date: Patient: ??DOUG FISHER ? Age:??78 Years?Sex:??Female?:??1945?? Subjective Pt feels well, eager to return to SNF. Used Bipap??last night. Review of Systems Constitutional:??No weight loss, fever, chills, weakness/ fatigue. HEENT:??No visual loss, blurred vision, double vision or yellow sclera. No hearing loss, sneezing, congestion, runny nose or sore throat. Skin:??No rash or itching. Cardiovascular:??No chest pain, chest pressure or chest discomfort. No palpitations. No??pedal edema. Respiratory:??No shortness of breath, cough or sputum production. Gastrointestinal:??No anorexia, nausea, vomiting or diarrhea. No abdominal pain. No??blood in stool. Genitourinary:??No burning micturition. No urinary frequency or incontinence. Neurologic:??No headache, dizziness, syncope, unilateral weakness, ataxia, numbness or tingling in the extremities. No change in bowel or bladder control. Musculoskeletal:??No muscle pain, back pain, joint pain or stiffness. Hematologic:??No bleeding or bruising. Lymphatics:??No enlarged lymph nodes. Psychiatric:??No depression or anxiety. Endocrine:??No reports of sweating. No cold or heat intolerance. No polyuria or polydipsia. Objective Vital Signs?? Temperature: 98.2 DegF (10/10/23 12:04:00) Temperature Route: Oral (10/10/23 12:04:00) Pulse Rate: 80 bpm (10/10/23 12:04:00) Heart Rate Monitored: 76 bpm (10/09/23 23:13:00) Respiratory Rate: 18 br/min (10/10/23 15:18:00) Vented: No (10/09/23 22:00:00) Systolic Blood Pressure: 108 mm Hg (10/10/23 12:04:00) Diastolic Blood Pressure: 58 mm Hg (10/10/23 12:04:00) Blood pressure sites: Arm, right (10/10/23 12:04:00) Mean Arterial Pressure: 75 mm Hg (10/10/23 12:04:00) Pulse Pressure: 50 mm Hg (10/10/23 12:04:00) Oxygen Saturation: 98 % (10/10/23 12:04:00) Liters per Minute: 2 L/min (10/10/23 12:04:00) Mode of Delivery (Oxygen): Nasal cannula (10/10/23 12:04:00) FiO2: 30 % (10/09/23 23:13:00) Early Warning Score: 3 (10/10/23 15:20:46) ? Physical Exam General:??Alert, in no acute cardiopulmonary distress. Mental Status:??Oriented to person, place and time. Normal affect. Head:??Normocephalic. Eyes:??Pupils are equal, round and reactive to light. Extraocular muscles intact. Ear, Nose and Throat:??Oropharynx clear, mucous membranes moist. Ears and nose without masses, lesions or deformities. Neck:??Supple, Full range of motion. Respiratory:??Clear to auscultation and percussion. No wheezing, rales or rhonchi. Cardiovascular:??Heart sounds normal. No thrills. Regular rate and rhythm, no murmurs, rubs or gallops. Gastrointestinal:??Abdomen soft, non-tender, non-distended. Normal bowel sounds. No pulsatile mass.No hepatosplenomegaly. Obese. Genitourinary:??No costovertebral angle tenderness. Neurologic:??Cranial nerves II-XII grossly intact. No focal neurological deficits. Moves all extremities spontaneously. Sensation intact bilaterally. Skin:??No rashes or lesions. No petechiae or purpura. No edema. Musculoskeletal:??No cyanosis or clubbing. No gross deformities. Normal range of motion. Results Recent Labs BLOOD COUNT & DIFF WBC 4.1 k/mm3 ()?? 10/10/2023 01:29 RBC 4.05 m/mm3 (Low)?? 10/10/2023 01:29 Hgb 11.1 Gm/dL (Low)?? 10/10/2023 01:29 Hct 37.1 % ()?? 10/10/2023 01:29 MCV 91.6 femtoliters ()?? 10/10/2023 01:29 MCH 27.4 pg ()?? 10/10/2023 01:29 MCHC 29.9 g/dL (Low)?? 10/10/2023 01:29 Platelet Count 63 k/mm3 (Low)?? 10/10/2023 01:29 RDW-SD 54.7 femtoliters (High)?? 10/10/2023 01:29 MPV 11.2 femtoliters ()?? 10/10/2023 01:29 Nucleated RBC (Automated) 0.0 #/100 WBC'S ()?? 10/10/2023 01:29 Abs. NRBC 0.0 k/mm3 ()?? 10/10/2023 01:29 Abs. Neut 2.5 k/mm3 ()?? 10/10/2023 01:29 Abs. Lymph 0.8 k/mm3 ()?? 10/10/2023 01:29 Abs. Tompkins 0.6 k/mm3 ()?? 10/10/2023 01:29 Abs. Eo 0.0 k/mm3 ()?? 10/10/2023 01:29 Abs. Baso 0.0 k/mm3 ()?? 10/10/2023 01:29 Neut % 62.6 % ()?? 10/10/2023 01:29 Lymph % 19.8 % ()?? 10/10/2023 01:29 Tompkins % 15.6 % (High)?? 10/10/2023 01:29 Eos % 0.5 % ()?? 10/10/2023 01:29 Baso % 0.5 % ()?? 10/10/2023 01:29 Imm Gran 1.0 % ()?? 10/10/2023 01:29 Abs. Imm Gran 0.0 k/mm3 ()?? 10/10/2023 01:29 ?? CHEM GENERAL Sodium 142 mmol/L ()?? 10/10/2023 01:29 Potassium 3.9 mmol/L ()?? 10/10/2023 08:45 Chloride 100 mmol/L ()?? 10/10/2023 01:29 Bicarbonate Level 35 mmol/L (High)?? 10/10/2023 01:29 Anion Gap 7 ()?? 10/10/2023 01:29 Glucose Level 80 mg/dL ()?? 10/10/2023 01:29 BUN 16 mg/dL ()?? 10/10/2023 01:29 Creatinine-Blood 1.3 mg/dL (High)?? 10/10/2023 01:29 Estimated GFR Creatinine 43 ML/MIN/1.73 M2 ()?? 10/10/2023 01:29 Calcium 8.5 mg/dL (Low)?? 10/10/2023 01:29 ?? URINE OTHER Est Creatinine Clearance 28.41 mL/min ()?? 10/10/2023 02:50 ? Microbiology ?? COVID-19, RSV, and Flu A/B, Rapid PCR?? Completed?? Source: Nasal Body Site: Nose Collected Dt/Tm: 10/07/2023 13:15 Last Updated Dt/Tm: 10/07/2023 14:21 ? Assessment/Plan Diagnoses ASTHMA ??(J45.810) Alcoholism ??(F10.20) Altered mental status ??(R41.82) CHF (congestive heart failure) ??(I50.9) CO2 retention ??(E87.29) COPD without exacerbation ??(J44.9) COPD, severe ??(J44.9) Cirrhosis ??(K74.60) Depression ??(F32.A) H/O stroke without residual deficits ??(Z86.73) HYPERTENSION ??(I10) Hypertension ??(I10) Liver cirrhosis ??(K74.60) Morbid obesity with BMI of 40.0-44.9, adult ??(E66.01) Obesity hypoventilation syndrome ??(E66.2) Respiratory failure with hypoxia and hypercapnia ??(J96.91) 1. ??Seizure disorder ??(G40.909) 2. ??Pulmonary edema ??(J81.1) ?? Assessment:??78 y/o female resident of [facility] in [place] with a PMH incl alcoholicand hep C liver cirrhosis, sober since 01/2023 and s/p successful Hep C treatment, severe COPD with chronic hypoxic and hypercapnic respiratory failure (on 2 L of oxygen via nasal cannula), morbid obesity (BMI 41), probable MELCHOR and obesity hypoventilation syndrome, seizure disorder, hypertension andremote history of endocarditis, readmitted with MS changes due to hypercapnia. Improved quickly with Bipap overnight. ?? Morbid obesity, BMI 41: Probable MELCHOR: Probable obesity hypoventilation syndrome: Severe COPD without exacerbation: Acute on chronic hypercapnic and hypoxic respiratory failure: - Bipap qhs and with naps - Oxygen supplementation to keep O2 > 88%, currently on 2 l NC, attn: CO2 retainer! - Trelegy, albuterol/duonebs PRN - Outpatient sleep study if not done yet - F/u with Pulmonary ?? Alcoholic and Hep C Cirrhosis: Pulmonary edema: Pt reports she is sober since 01/2023. S/p successful Hep C treatment with undetectable VL 05/2023. Ammonia slightly elevated at 55. - Lactulose tid with goal of 2-3 BM/day - Lasix 40 mg po bid - Establish care with GI, ? EGD - Acamprosate - MVI, folic acid, thiamine - Remain sober! ?? Seizure disorder: Keppra ?? Depression: Duloxetine and Escitalopram ?? HTN: Metoprolol ?? Discharge Planning:??SNF in AM ? Note * Shara Rios RN: PERFORM Event Display: Discharge/Transfer Note Hospital Authored Date: [id number] Nursing Discharge Note Entered On: 10/11/2023 12:08 EST Performed On: 10/11/2023 12:07 EST by Shara Rios RN Nursing Discharge Note 2 Discharge Time : 10/11/2023 11:15 EST Discharge Level of Care at Discharge : assisted facility Discharge Nursing Homes/Rehab Facilities : [facility] [address] [facility] [id number] Patient Left Unit Via : Ambulance Patient Accompanied Off Unit with : Ambulance/Chair Van Personnel Handover Given to Transport Personnel : Yes DC Instructions Provided & Signed by Pt : No Patient Understands D/C Instructions : No Patient Instructions Discharge Signed : No Instructions for Discharge Comments : not required for rehab placement Discharge Comments : all D/C paperwork given to [facility] staff to hand over to rehab staff Did Pt have Specialty Bed or Wound Vac : No Shara Rios RN - 10/11/2023 12:07 EST * Laury Lopez MD: PERFORM Event Display: Discharge/Transfer Note Hospital Authored Date: [id number] Patient: ??DOUG FISHER ? Age:??78 Years?Sex:??Female?:??1945?? Patient Information Discharge Location: S2 Primary Care Physician: Not on Staff, PCP Admit Date/Time: 10/07/23 23:38 Discharge Disposition Discharge Disposition: [facility] Facility/Rehab Discharge Diagnosis Seizure disorder (G40.909) Pulmonary edema (J81.1) ASTHMA (J45.909) Alcoholism (F10.20) Altered mental status (R41.82) CHF (congestive heart failure) (I50.9) CO2 retention (E87.29) COPD without exacerbation (J44.9) COPD, severe (J44.9) Cirrhosis (K74.60) Depression (F32.A) H/O stroke without residual deficits (Z86.73) HYPERTENSION (I10) Liver cirrhosis (K74.60) Morbid obesity with BMI of 40.0-44.9, adult (E66.01) Obesity hypoventilation syndrome (E66.2) Respiratory failure with hypoxia and hypercapnia (J96.91) ASTHMA Alcoholism COPD, severe Depression HYPERTENSION Hepatitis C Liver cirrhosis Nausea ??787.02 Stroke Subacute infective endocarditis Thrombocytopenia Unresponsiveness ?? _ Discharge Medications ?? Acamprosate (acamprosate 333 mg oral delayed release tablet)?1?tab(s)?333?Milligram?By Mouth?3 times a day Albuterol (albuterol CFC free 90 mcg/inh inhalation aerosol)?2?puff(s)?Inhalation?Every4 hours?as needed?Wheezing/Shortness of Breath Albuterol/Ipratropium (albuterol-ipratropium 3 mg-0.5 mg/3 ml inhalation solution)?3?Milliliter?Neb?Every 6 hours?as needed?Wheezing/Shortness of Breath Benzonatate (benzonatate 200 mg oral capsule)?1?capsule?200?Milligram?By Mouth?3 times a day Bisacodyl (bisacodyl 10 mg rectal suppository)?1?suppository(ies)?10?Milligram?Rectally?Every 72 hours?as needed?if no BM in 3 days?Step 2 Cetirizine (cetirizine 10 mg oral tablet)?1?tab(s)?10?Milligram?By Mouth?Daily Diclofenac Topical (diclofenac 1% topical gel)?1?ramakrishna?Topically?Every 6 hours?as needed?Pain , Mild Duloxetine (duloxetine 30 mg oral enteric coated [...] Metoprolol (Metoprolol Tartrate 25 mg oral tablet)?1?tab(s)?25?Milligram?By Mouth?Daily Milk of Magnesia (MOM Liquid)?30?Milliliter?By Mouth?Every 72 hours?as needed?if no BM in 3 days?Step 1 Multivitamin With Minerals (Centrum Adults)?1?tab(s)?By Mouth?Daily nalOXONE (Narcan 4 mg/0.1 mL nasal spray)?4?Milligram?Naris, Left?Once?as needed?as needed Nystatin Topical (nystatin topical 856977 u/gm powder)?1?ramakrishna?Topically?2 times a day Ocular Lubricant (Artificial Tears preserved solution)?1?Drops?Eyes, Both?3 times a day Oxycodone (oxyCODONE 5 mg oral tablet)?5?Milligram?1?tablet?By Mouth?Every 4 hours?as needed?moderate to severe pain >5 on pain scale Pantoprazole (pantoprazole 40 mg oral delayed release tablet)?1?tab(s)?40?Milligram?By Mouth?Daily Sodium Biphosphate-Sodium Phosphate (Fleet Enema 19 gm-7 gm rectal enema)?1?Each?Rectally?Every 72 hours?as needed?if no BM in 3 days?Step 3 Spironolactone (spironolactone 25 mg oral tablet)?25?Milligram?By Mouth?Daily Thiamine (Vitamin B1 100 mg oral tablet)?100?Milligram?1?tablet?By Mouth?Daily Tizanidine (tiZANidine 2 mg oral tablet)?2?Milligram?1?tablet?By Mouth?Every 8 hours?as needed?Spasm Trazodone (traZODone 50 mg oral tablet)?50?Milligram?1?tablet?By Mouth?Daily at bedtime ? Allergies Allergies ?(Active and Proposed Allergies Only) Tylenol? (Severity: Unknown severity, Onset: Unknown) codeine? (Severity: Unknown severity, Onset: Unknown) ?Reactions: Syncope Tuberculin Nya Test? (Severity: Unknown severity, Onset: Unknown) ? PCP Follow-Up/Heads-Up ?Needs Pulm Medicine and GI consult as outpt Hospital Course ?? 78 y/o female resident of [facility] in [place] with a PMH incl alcoholic and hep C liver cirrhosis, sober since 01/2023 and s/p successful Hep C treatment, severe COPD with chronic hypoxic and hypercapnic respiratory failure (on 2 L of oxygen via nasal cannula), morbid obesity (BMI 41), probable MELCHOR and obesity hypoventilation syndrome, seizure disorder, hypertension and remote history of endocarditis, readmitted with MS changes due to hypercapnia. Improved quickly with Bipap overnight.? Morbid obesity BMI 41: Probable MELCHOR: Probable obesity hypoventilation syndrome: Severe COPD without exacerbation: Acute on chronic hypercapnic and hypoxic respiratory failure: - Bipap qhs and with naps - Oxygen supplementation to keep O2 > 88% - 92% , attn CO2 retainer! - Trelegy, albuterol/duonebs PRN - Outpatient sleep study if not done yet - F/u with Pulmonary ? Alcoholic and Hep C Cirrhosis:?? Pulmonary edema: Pt reports she is sober since 01/2023. S/p successful Hep C treatment with undetectable VL 05/2023. Ammonia slightly elevated at 55. - Lactulose tid with goal of 2-3 BM/day - Lasix 40 mg po bid - Spironolactone 25 mg po qd, monitor BMP closely! (H/o hyperkalemia)?? - Establish care with GI, ? EGD - Acamprosate - MVI, folci acid, thiamine - Remain sober! ? Seizure disorder:??Keppra Depression:??Duloxetine and Escitalopram HTN:??Metoprolol ?? Objective ?? Seen today only Reviewed??chart and spoke to RN ?? Vitals stable ?? Patient says she has been doing OK - no new complaints - just waiting to go to rehab Told my CM that she is booked to go at 10am ?? Looks like she??already had DC paperwork done a few days ago which was cancelled as facility didn'thave BIPAP - which??has been arranged now ? Vital Signs?? Temperature: 98.5 DegF (10/11/23 04:30:00) Temperature Route: Oral (10/11/23 04:30:00) Pulse Rate: 74 bpm (10/11/23 04:30:00) Respiratory Rate: 18 br/min (10/11/23 04:30:00) Systolic Blood Pressure: 110 mm Hg (10/11/23 04:30:00) Diastolic Blood Pressure:??54 mm Hg??Low (10/11/23 04:30:00) Blood pressure sites: Arm, left (10/11/23 04:30:00) Mean Arterial Pressure: 73 mm Hg (10/11/23 04:30:00) Pulse Pressure: 56 mm Hg (10/11/23 04:30:00) Oxygen Saturation: 95 % (10/11/23 04:30:00) Liters per Minute: 2 L/min (10/10/23 22:03:00) Mode of Delivery (Oxygen): CPAP (10/11/23 04:30:00) Early Warning Score: 5 (10/11/23 04:33:30) ? . Physical Exam ?? Was sleeping - easily arousable OX 3 No wheezing Pending Results Add On Lab Order ordered on 10/07/2023 Add On Lab Order ordered on 10/08/2023 Levetiracetam Level ordered on 10/07/2023 Follow-Up Appointments Added Follow Up ?Time Frame ?Comments PCP Not on Staff?2 to 3 weeks Post Discharge Care Diet: ??Regular Diet ?? Activity: ??as tolerated ?? Code Status: ??Full Resuscitation ?? Home Health Face to Face ^HomeHealthFTF Results Discharge Labs BLOOD COUNT & DIFF WBC 4.1 k/mm3 ()?? 10/10/2023 01:29 RBC 4.05 m/mm3 (Low)?? 10/10/2023 01:29 Hgb 11.1 Gm/dL (Low)?? 10/10/2023 01:29 Hct 37.1 % ()?? 10/10/2023 01:29 MCV 91.6 femtoliters ()?? 10/10/2023 01:29 MCH 27.4 pg ()?? 10/10/2023 01:29 MCHC 29.9 g/dL (Low)?? 10/10/2023 01:29 Platelet Count 63 k/mm3 (Low)?? 10/10/2023 01:29 RDW-SD 54.7 femtoliters (High)?? 10/10/2023 01:29 MPV 11.2 femtoliters ()?? 10/10/2023 01:29 Nucleated RBC (Automated) 0.0 #/100 WBC'S ()?? 10/10/2023 01:29 Abs. NRBC 0.0 k/mm3 ()?? 10/10/2023 01:29 Abs. Neut 2.5 k/mm3 ()?? 10/10/2023 01:29 Abs. Lymph 0.8 k/mm3 ()?? 10/10/2023 01:29 Abs. Tompkins 0.6 k/mm3 ()?? 10/10/2023 01:29 Abs. Eo 0.0 k/mm3 ()?? 10/10/2023 01:29 Abs. Baso 0.0 k/mm3 ()?? 10/10/2023 01:29 Neut % 62.6 % ()?? 10/10/2023 01:29 Lymph % 19.8 % ()?? 10/10/2023 01:29 Tompkins % 15.6 % (High)?? 10/10/2023 01:29 Eos % 0.5 % ()?? 10/10/2023 01:29 Baso % 0.5 % ()?? 10/10/2023 01:29 Imm Gran 1.0 % ()?? 10/10/2023 01:29 Abs. Imm Gran 0.0 k/mm3 ()?? 10/10/2023 01:29 ?? BLOOD GAS pH 7.39 ()?? 10/08/2023 05:21 pCO2 64 mm Hg (High)?? 10/08/2023 05:21 pO2 104 mm Hg (High)?? 10/08/2023 05:21 Bicarbonate, Estimated 39 mmol/L (High)?? 10/08/2023 05:21 Specimen Type - Blood Gas ARTERIAL ()?? 10/08/2023 05:21 pH, Venous 7.35 ()?? 10/07/2023 18:35 pCO2, Venous 74 mm Hg (High)?? 10/07/2023 18:35 pO2, Venous 43 mm Hg (High)?? 10/07/2023 18:35 Bicarbonate, Estimated(Venous) 40 mmol/L (High)?? 10/07/2023 18:35 Percent O2 (FIO2) 30 ()?? 10/08/2023 05:21 ?? CARDIAC Nt-Probnp 592 pg/mL (High)?? 10/07/2023 12:55 ? CHEM GENERAL Sodium 144 mmol/L ()?? 10/11/2023 02:20 Potassium 3.9 mmol/L ()?? 10/11/2023 02:20 Chloride 102 mmol/L ()?? 10/11/2023 02:20 Bicarbonate Level 38 mmol/L (High)?? 10/11/2023 02:20 Anion Gap 4 ()?? 10/11/2023 02:20 Glucose Level 107 mg/dL (High)?? 10/11/2023 02:20 Glucose, POC 110 mg/dL (High)?? 10/08/2023 01:04 BUN 19 mg/dL ()?? 10/11/2023 02:20 Creatinine-Blood 1.1 mg/dL (High)?? 10/11/2023 02:20 Estimated GFR Creatinine 51 ML/MIN/1.73 M2 ()?? 10/11/2023 02:20 Calcium 8.6 mg/dL ()?? 10/11/2023 02:20 Magnesium 2.5 mg/dL (High)?? 10/07/2023 12:55 Protein, Total 5.7 Gm/dL (Low)?? 10/07/2023 12:55 Albumin 3.3 Gm/dL (Low)?? 10/07/2023 12:55 AG Ratio 1.4 ()?? 10/07/2023 12:55 Alkaline Phosphatase 77 units/L ()?? 10/07/2023 12:55 AST (SGOT) 29 units/L ()?? 10/07/2023 12:55 ALT (SGPT) 9 units/L ()?? 10/07/2023 12:55 Bilirubin, Total 1.4 mg/dL (High)?? 10/07/2023 12:55 ? ENDOCRINE/TUMOR MARKER TSH 2.02 uIU/mL ()?? 10/07/2023 12:55 ? HEME OTHER Hold Lavender Top SPECIMEN DISCARDED AFTER 24 HOURS. ()?? 10/11/2023 02:20 Hold Blue Top SPECIMEN DISCARDED AFTER 4 HOURS. ()?? 10/07/2023 18:35 ?? MISC. CHEMISTRY Ammonia, Venous 55 ??mole/L (High)?? 10/07/2023 14:30 Hold Green Top SPECIMEN DISCARDED AFTER 1 WEEK ()?? 10/07/2023 18:35 Hold Donahue Top SPECIMEN DISCARDED AFTER 1 WEEK ()?? 10/07/2023 12:55 ? TOXICOLOGY/TDM Ethanol, Serum or Plasma NONE DETECTED mg/dL ()?? 10/07/2023 12:55 ? UA/URINALYSIS Appear/Color, Urine YELLOW ()?? 10/07/2023 14:15 Specific [place], Urine 1.014 ()?? 10/07/2023 14:15 pH, Urine 7.0 ()?? 10/07/2023 14:15 Albumin, Urine NEGATIVE ()?? 10/07/2023 14:15 Glucose, Urine NEGATIVE ()?? 10/07/2023 14:15 Ketones, Urine NEGATIVE ()?? 10/07/2023 14:15 Bilirubin, Urine NEGATIVE ()?? 10/07/2023 14:15 Hemoglobin, Urine NEGATIVE ()?? 10/07/2023 14:15 Nitrite, Urine NEGATIVE ()?? 10/07/2023 14:15 Leukocyte, Urine NEGATIVE ()?? 10/07/2023 14:15 Urobilinogen NORMAL mg/dL ()?? 10/07/2023 14:15 WBC's, Urine 1 /HPF ()?? 10/07/2023 14:15 RBC's, Urine 1 /HPF ()?? 10/07/2023 14:15 Squamous Epith 1 /HPF ()?? 10/07/2023 14:15 Hyaline Cast 1 LPF ()?? 10/07/2023 14:15 Mucus SLIGHT /LPF ()?? 10/07/2023 14:15 Hold Urine Culture Testing available 48 hours from time of collection. ()?? 10/07/2023 14:15 ? URINE OTHER Est Creatinine Clearance 33.58 mL/min ()?? 10/11/2023 03:58 ? VIROLOGY Influenza A PCR NEGATIVE ()?? 10/07/2023 13:20 Influenza B PCR NEGATIVE ()?? 10/07/2023 13:20 RSV PCR NEGATIVE ()?? 10/07/2023 13:20 COVID-19 PCR Specimen Source NASAL ()?? 10/07/2023 13:20 COVID-19 PCR Result NEGATIVE ()?? 10/07/2023 13:20 ? 30_ minutes spent on discharge * Shara Rios RN: PERFORM Event Display: Patient Education/Instruction Authored Date: [id number] Inpatient Adult Discharge Instructions [address] [address] Name: DOUG LEW : 1945 Visit: 10/07/2023 23:38:00 Current Date: 10/11/2023 09:24 Account: [id number] Inpatient Adult Discharge Instructions We would like [...] and their families. Surveys are administered by [employer] ?? If further treatment with your primary care physician or another doctor is recommended, it is important for you to keep the appointment. Call your primary care physician or return to the Emergency Department immediately if your condition worsens, fails to improve, or new symptoms develop. If you need to find a doctor, you can call [facility] for a referral at [phone] or toll free at [phone] or log in to [email or web address].. ?? [facility], in keeping with [facility] guidance, no longer requires face masks [...] a health care ramakrishna of your choosing. [employer] is a website that allows you to securely view your medical information including your hospital discharge summary, office visit summaries, medications and follow-up visits. You can also request appointments, renew medications, and request access to your medical information using a health care ramakrishna of your choosing, or just ask a question. You can enroll at [email or web address] or register during your next office visit. You have been discharged from [facility], Patient Care Unit: S2. If you have any questions regarding these instructions after you leave, please call us and we will be happy to assist you. [facility] Your Care Team Attending Physician John ZEPEDA, Laury Discharging Providers John ZEPEDA, Laury Reason for Admission Pt coming from [facility] with c/o AMS x 2 days. Recent hospitalization. Your Diagnosis Altered mental status Cirrhosis Hypertension COPD without exacerbation CHF (congestive heart failure) CO2 retention Alcoholism ASTHMA COPD, severe Depression HYPERTENSION Liver cirrhosis Respiratory failure with hypoxia and hypercapnia Morbid obesity with BMI of 40.0-44.9, adult H/O stroke without residual deficits Obesity hypoventilation syndrome Seizure disorder Pulmonary edema Tests Performed Below is a partial list of the tests performed during your hospitalization. You may have had other tests and procedures not included in this list. Please discuss all test results with your provider. ABG Ammonia Venous Basic Metabolic Panel BUN CBC CBC w/ Differential Comprehensive Metabolic Panel COVID-19, RSV, and Flu A/B, Rapid PCR Creatinine Electrolytes ETHANOL Glucose Level GLUCOSE POC HOLD BLUE TUBE HOLD DONAHUE TUBE HOLD GREEN TUBE HOLD LAVENDER TUBE Magnesium Level Potassium Level ProBNP TSH with T4 Reflex (Adults Only) Urinalysis w/hold for Urine Culture VBG CT Head/Brain W/O Contrast US Ascites XR Chest 2 Views Frontal and Lat Primary Care Provider Not on Staff, PCP Advance Directive Health Care Proxy on File Yes - Health Care Proxy Yes - MOLST Discharge Vitals Temperature: 98.5 DegF Height: 157 cm Pulse Rate: 74 bpm Weight: 101.5 kg Respiratory Rate: 18 br/min Body Mass Index:??41.18 kg/m2??Critical Systolic Blood Pressure: 110 mm Hg Body surface area: 2.1 Diastolic Blood Pressure:??54 mm Hg??Low ?? Oxygen Saturation: 95 % ?? Studies Pending All tests and labs ordered during this hospital stay have been completed unless listed below. Please discuss all pending results with your provider listed above in these instructions. ?? Add On Lab Order (Lab Add On Order) Levetiracetam Level What to do next Instructions From Your Doctor Discharge Orders Diet:??Regular Diet Activity:??as tolerated Code Status:?? Full Resuscitation You Need to Schedule the Following Appointments Follow Up with??PCP Not on Staff When:??Within 2 to 3 weeks Discharge Medications DOUG FISHER :1945 Visit Date:10/07/2023 Medications: Please continue your medications until treatment is completed or stopped by your provider. Medications not listed below should be discontinued. Discuss any questions related to medications with your provider. What How Much When Instructions Next Dose New Spironolactone (spironolactone 25 mg oral tablet) 25 Milligram Oral Daily next dose due 10/12 at 9am Changed Albuterol (albuterol CFC free 90 mcg/ inh inhalation aerosol) 2 puff(s) Inhalation Every 4 hours as needed for Wheezing/Shortness of Breath take as directed Changed Albuterol/ Ipratropium (albuterol-ipratropium 3 mg-0.5 mg/ 3 ml inhalation solution) 3 Milliliter Nebulized inhalation Every 6 hours as needed for Wheezing/Shortness of Breath take as directed Changed Diclofenac Topical (diclofenac 1% topical gel) 1 ramakrishna Topically Every 6 hours as needed for Pain , Mild take as directed Changed Metoprolol (Metoprolol Tartrate 25 mg oral tablet) 1 tab(s) Oral Daily next dose due 10/12 at 9am Changed Nystatin Topical (nystatin topical 357048 u/ gm powder) 1 ramakrishna Topically Twice a day next dose due 10/11 at 9pm Changed Oxycodone (oxyCODONE 5 mg oral tablet) 1 tab(s) Oral Every 6 hours as needed for moderate to severe pain >5 on pain scale Duration: 5 Days Printed Prescription take as directed Unchanged Acamprosate (acamprosate 333 mg oral delayed release tablet) 1 tab(s) Oral 3 times a day next dose due 10/11 at 3pm Unchanged Benzonatate (benzonatate 200 mg oral capsule) 1 capsule Oral 3 times a day next dose due 10/11 at 3pm Unchanged Bisacodyl (bisacodyl 10 mg rectal suppository) 1 suppository(ies) Per rectum Every 72 hours as needed for if no BM in 3 days Step 2 ?? take as directed Unchanged Cetirizine (cetirizine 10 mg oral tablet) 1 tab(s) Oral Daily next dose due 10/12 at 9am Unchanged Duloxetine (duloxetine 30 mg oral enteric coated capsule) 1 capsule Oral Daily next dose due 10/12 at 9am Unchanged Escitalopram (escitalopram 20 mg oral tablet) 1 tab(s) Oral Daily next dose due 10/12 at 9am Unchanged Fluticasone Nasal (Flonase Allergy Relief 50 mcg/ inh nasal spray) 1 spray(s) Nares, Both Twice a day next dose due 10/11 at 9pm Unchanged fluticasone/ umeclidinium/ vilanterol (Trelegy Ellipta 200 mcg-62.5 mcg-25 mcg/ inh inhalation powder) 1 puff(s) Inhalation Daily next dose due 10/12 at 9am Unchanged Folic Acid (folic acid 1 mg oral tablet) 1 tab(s) Oral Daily next dose due 10/12 at 9am Unchanged Furosemide (furosemide 40 mg oral tablet) 1 tab(s) Oral Twice a day next dose due 10/11 at 3pm Unchanged Gabapentin (gabapentin 300 mg oral capsule) 1 capsule Oral 3 times a day next dose due 10/11 at 3pm Unchanged Guaifenesin (Camryn-Tussin Expectorant 100 mg/ 5 mL oral liquid) 10 Milliliter Oral Every 6 hours as needed for Cough take as directed Unchanged Guaifenesin (Mucinex 600 mg oral tablet, extended release) 1 tab(s) Oral Every 12 hours next dose due 10/11 at 9pm Unchanged Lactulose (lactulose 10 gm/ 15 ml oral syrup) 30 Milliliter Oral 3 times a day next dose due 10/11 at 3pm Unchanged levETIRAcetam (levETIRAcetam 500 mg oral tablet) 1 tab(s) Oral Twice a day next dose due 10/11 at 9pm Unchanged Lidocaine Topical (lidocaine 5% topical film) Bilateral Hips Topically Daily on for 12 hours & off for 12 hours ?? next dose due 10/12 at 9am, off at 9pm Unchanged Methyl Salicylate-Menthol Topical (Muscle Rub 10%-15% topical cream) Right Side Neck Topically As needed for as needed for pain take as directed Unchanged Milk of Magnesia (MOM Liquid) 30 Milliliter Oral Every 72 hours as needed for if no BM in 3 days Step 1 ?? take as directed Unchanged Multivitamin With Minerals (Centrum Adults) 1 tab(s) Oral Daily next dose due 10/12 at 9am Unchanged nalOXONE (Narcan 4 mg/ 0.1 mL nasal spray) 4 Milligram Naris, Left Once as needed for as needed take as directed Unchanged Ocular Lubricant (Artificial Tears preserved solution) 1 Drops Both eyes 3 times a day next dose due 10/11 at 3pm Unchanged Pantoprazole (pantoprazole 40 mg oral delayed release tablet) 1 tab(s) Oral Daily next dose due 10/12 at 9am Unchanged Sodium Biphosphate-Sodium Phosphate (Fleet Enema 19 gm-7 gm rectal enema) 1 Each Per rectum Every 72 hours as needed for if no BM in 3 days Step 3 ?? take as directed Unchanged Thiamine (Vitamin B1 100 mg oral tablet) 1 tab(s) Oral Daily next dose due 10/12 at 9am Unchanged Tizanidine (tiZANidine 2 mg oral tablet) 1 tab(s) Oral Every 8 hours as needed for Spasm take as directed Unchanged Trazodone (traZODone 50 mg oral tablet) 1 tab(s) Oral Daily at Bedtime next dose due 10/11 at 9pm Test Results Below is a partial list of the most recent Laboratory test results done prior to this discharge. You may have had other tests and procedures not included in this list. Please discuss all test resultswith your provider. Est Creatinine Clearance - 33.58 mL/min (10/11/2023) ABG (10/08/2023) ???pH - 7.39???pCO2 - 64 mm Hg???pO2 - 104 mm Hg???Bicarbonate, Estimated - 39 mmol/L???Specimen Type - Blood Gas - ARTERIAL???Percent O2 (FIO2) - 30 Ammonia Venous (10/07/2023) ???Ammonia, Venous - 55 ??mole/L Basic Metabolic Panel (10/11/2023) ???Sodium - 144 mmol/L???Potassium - 3.9 mmol/L???Chloride - 102 mmol/L???Bicarbonate Level - 38 mmol/L???Anion Gap - 4???Glucose Level - 107 mg/dL???BUN - 19 mg/dL???Creatinine-Blood - 1.1 mg/dL???Estimated GFR Creatinine - 51 ML/MIN/1.73 M2???Calcium - 8.6 mg/dL BUN (10/08/2023) ???BUN - 15 mg/dL CBC (10/08/2023) ???WBC - 3.4 k/mm3???RBC - 3.75 m/mm3???Hgb - 10.3 Gm/dL???Hct - 34.1 %???MCV - 90.9 femtoliters???MCH - 27.5 pg???MCHC - 30.2 g/dL???Platelet Count - 61 k/mm3???RDW-SD - 53.7 femtoliters???MPV - 11.0 femtoliters???Nucleated RBC (Automated) - 0.0 #/100 WBC'S???Abs. NRBC - 0.0 k/mm3 CBC w/ Differential (10/10/2023) ???WBC - 4.1 k/mm3???RBC - 4.05 m/mm3???Hgb - 11.1 Gm/dL???Hct - 37.1 %???MCV - 91.6 femtoliters???MCH - 27.4 pg???MCHC - 29.9 g/dL???Platelet Count - 63 k/mm3???RDW-SD - 54.7 femtoliters???MPV - 11.2 femtoliters???Nucleated RBC (Automated) - 0.0 #/100 WBC'S???Abs. NRBC - 0.0 k/mm3???Abs. Neut - 2.5 k/mm3???Abs. Lymph - 0.8 k/mm3???Abs. Tompkins - 0.6 k/mm3???Abs. Eo - 0.0 k/mm3???Abs. Baso - 0.0 k/mm3???Neut % - 62.6 %???Lymph % - 19.8 %???Tompkins % - 15.6 %???Eos % - 0.5 %???Baso % - 0.5 %???Imm Gran - 1.0 %???Abs. Imm Gran - 0.0 k/mm3 Comprehensive Metabolic Panel (10/07/2023) ???Sodium - 145 mmol/L???Potassium - 4.0 mmol/L???Chloride - 102 mmol/L???Bicarbonate Level - 38 mmol/L???Anion Gap - 5???Glucose Level - 101 mg/dL???BUN - 16 mg/dL???Creatinine-Blood - 1.0 mg/dL???Estimated GFR Creatinine - 58 ML/MIN/1.73 M2???Calcium - 8.9 mg/dL???Protein, Total - 5.7 Gm/dL???Albumin - 3.3 Gm/dL???AG Ratio - 1.4???Alkaline Phosphatase - 77 units/L???AST (SGOT) - 29 units/L???ALT (SGPT) - 9 units/L???Bilirubin, Total - 1.4 mg/dL COVID-19, RSV, and Flu A/B, Rapid PCR (10/07/2023) ???Influenza A PCR - NEGATIVE???Influenza B PCR - NEGATIVE???RSV PCR - NEGATIVE???COVID-19 PCR Specimen Source - NASAL???COVID-19 PCR Result - NEGATIVE Creatinine (10/08/2023) ???Creatinine-Blood - 1.0 mg/dL???Estimated GFR Creatinine - 61 ML/MIN/1.73 M2 Electrolytes (10/08/2023) ???Sodium - 145 mmol/L???Potassium - 3.6 mmol/L???Chloride - 101 mmol/L???Bicarbonate Level - 35 mmol/L???Anion Gap - 9 ETHANOL (10/07/2023) ???Ethanol, Serum or Plasma - NONE DETECTED Glucose Level (10/08/2023) ???Glucose Level - 87 mg/dL GLUCOSE POC (10/08/2023) ???Glucose, POC - 110 mg/dL HOLD BLUE TUBE (10/07/2023) ???Hold Blue Top - SPECIMEN DISCARDED AFTER 4 HOURS. HOLD DONAHUE TUBE (10/07/2023) ???Hold Donahue Top - SPECIMEN DISCARDED AFTER 1 WEEK HOLD GREEN TUBE (10/07/2023) ???Hold Green Top - SPECIMEN DISCARDED AFTER 1 WEEK HOLD LAVENDER TUBE (10/11/2023) ???Hold Lavender Top - SPECIMEN DISCARDED AFTER 24 HOURS. Magnesium Level (10/07/2023) ???Magnesium - 2.5 mg/dL Potassium Level (10/10/2023) ???Potassium - 3.9 mmol/L ProBNP (10/07/2023) ???Nt-Probnp - 592 pg/mL TSH with T4 Reflex (Adults Only) (10/07/2023) ???TSH - 2.02 uIU/mL Urinalysis w/hold for Urine Culture (10/07/2023) ???Appear/Color, Urine - YELLOW???Specific [place], Urine - 1.014???pH, Urine - 7.0???Albumin, Urine - NEGATIVE???Glucose, Urine - NEGATIVE???Ketones, Urine - NEGATIVE???Bilirubin, Urine - NEGATIVE???Hemoglobin, Urine - NEGATIVE???Nitrite, Urine - NEGATIVE???Leukocyte, Urine - NEGATIVE???Urobilinogen - NORMAL???WBC's, Urine - 1 /HPF???RBC's, Urine - 1 /HPF???Squamous Epith - 1 /HPF???Hyaline Cast- 1 LPF???Mucus - SLIGHT???Hold Urine Culture - Testing available 48 hours from time of collection. VBG (10/07/2023) ???Specimen Type - Blood Gas - VENOUS???pH, Venous - 7.35???pCO2, Venous - 74 mm Hg???pO2, Venous -43 mm Hg???Bicarbonate, Estimated(Venous) - 40 mmol/L Allergies (NKA means No Known Allergies) Tuberculin Nya Test Tylenol codeine??(Syncope) Problems Active Problems??(22) Acute chest pain?? Acute chest pain?? Alcoholism?? Altered mental status?? ASTHMA?? Chest pain?? COPD, severe?? Depression?? Hepatitis C?? HYPERTENSION?? Liver cirrhosis?? Morbid obesity with BMI of 40.0-44.9, adult?? Nausea ??787.02?? Obesity hypoventilation syndrome?? Respiratory failure with hypoxia?? Respiratory failure with hypoxia and hypercapnia?? Seizure disorder?? Severe obesity?? Stroke?? Subacute infective endocarditis?? Thrombocytopenia?? Unresponsiveness?? Education Materials Below is the list of Educational Leaflet Providered with your Discharge Instructions. Valuables and Belongings I fully understand and agree that [facility] accepts no responsibility for all my [...] patient Date for Pt to Sign Valuables/Belongings: 10/10/23 01:32:00 ?? Other Discharge Information ? Case Management Discharge Plan?? Discharge Plan?? Discharge Agency Information?? Discharge Level of Care at Discharge: assisted facility Name of Agency #1: [facility] Discharge Transportation Arranged: [facility] [address] [place] [address] ??[phone] Agency Lingo Cleaner #1: Estrella Delgado, clinical liaison, [facility] Mode of Transportation Arranged: Ambulance Service Start Date and Time #1: 10/11/23 10:00:00 Discharge Arranged Transport Date/Time: 10/11/23 10:00:00 Service Categories #1: BiPAP unit, Occupational Therapy, Physical Therapy, Usp Discharge Nursing Homes/Rehab Facilities: [facility] [address] [facility] [address] Service Comments #1: Your hospitalist has determined you are clinically cleared to return to [facility] to continue your rehabilitation & recovery. You'll be transported by ambulance. Your son/health care proxy Christian is aware & agrees with this plan. ?? Name of Person Notified of Transfer: Christian Badillo, son/HCP, ?? Pulmonary Rehab Status?? Pulmonary Rehab Discharge Status?? CPAP/BiPAP Mask Type: Full CPAP/BiPAP Mask Size: Medium Respiratory Rate: 18 br/min ? Common Emergency Awareness Tips IS [...] are strongly encouraged to quit. Please call [facility] Ali Link at [phone] or [phone] ([phone]) or log in to [email or web address][email or web address] for referrals to smoking cessation programs. ?? 202 Suicide & Crisis Lifeline is available 30/05 if you or someone you know needs to find a reason to keep living. By calling 952 you'll be connected to a skilled, trained counselor at a crisis center in your area. INPATIENT DISCHARGE INSTRUCTIONS SIGNATURE PAGE DOUG FISHER Location:[facility] Registration Date and Time:10/07/2023 23:38 EST Primary Care Physician: Not on Staff, PCP Attending Physician: Laury Lopez MD, I RAMOS DOUG LEW, have received the above patient education materials/instructions and haveverbalized understanding. If ambulance or transport services are being used I further acknowledge being given a choice of service. ?? If you need to contact me, please call me at this number: . Patient/Laundry Assistant Name: Patient/Laundry Assistant Signature: Relationship to Patient: Witness Name/Signature: Date: * Aurelia Ramos RN, V: PERFORM, SIGN, VERIFY Event Display: Case Management Discharge Plan Authored Date: [id number] Patient: DOUG FISHER Age: 78 years Sex: Female : 1945 Associated Diagnoses: None Author: Aurelia Ramos RN, V Discharge Plan Case Management Discharge Plan : Case Management Discharge Plan Data 10/10/2023 11:39 EST Discharge Level of Care at Discharge assisted facility Discharge Nursing Homes/Rehab Facilities [facility] [address] [place] [address] Discharge Transportation Arranged [facility] John Arredondo MA Discharge Arranged Transport Date/Time 10/11/2023 10:00 Mode of Transportation Arranged Ambulance Name of Agency #1 [facility] Agency Lingo Cleaner #1 Estrella Delgado, clinical liaison, [facility] Service Categories #1 BiPAP unit, Occupational Therapy, Physical Therapy, Usp Service Start Date and Time #1 10/11/2023 10:00 Service Comments #1 Your hospitalist has determined you are clinically cleared to return to [facility] to continue your rehabilitation & recovery. You'll be transported by ambulance. Your son/health care proxy Christian is aware & agrees with this plan. Name of Person Notified of Transfer Christian Badillo, son/HCP, * Juliann Ratliff RN: PERFORM Event Display: Discharge/Transfer Note Hospital Authored Date: [id number] Discharge Planning Nursing Entered On: 10/09/2023 11:53 EST Performed On: 10/09/2023 11:53 EST by Juliann Ratliff RN Discharge Planning Nursing Anticipated discharge : assisted facility Juliann Ratliff RN - 10/09/2023 11:53 EST * Heidi Limon MD: PERFORM, SIGN, VERIFY Event Display: Patient Education Handout Authored Date: [id number] Patient Care team information Care Team Personnel Name: Imelda Mayo Position: [facility] Onco RN Member Role: Primary Care Nurse Name: Maggie Lambert RN Position: [facility] RN Member Role: Primary Care Nurse Name: Krystal Bruner RN Position: [facility] RN Member Role: Primary Care Nurse Name: Dallas Dennis RN Position: [facility] ED RN W/OE and Tasks Member Role: Primary Care Nurse Name: Dilcia Schneider RN Position: [facility] RN Member Role: Primary Care Nurse Name: Dilia Bond RN Position: [facility] AMB Nurse Member Role: Primary Care Nurse Name: Chelly Dickerson RN Position: [facility] RN Member Role: Primary Care Nurse Name: Lary Johnson RN Position: [facility] RN Member Role: Primary Care Nurse Name: Irlanda Hauser RN Position: [facility] RN Member Role: Primary Care Nurse Name: Claire Jarrell RN Position: [facility] SN RN Member Role: Primary Care Nurse Name: Jade Livingston RN Position: [facility] RN Member Role: Primary Care Nurse Name: Rosita FOOD SERVICE MANAGER, Charo Woods Position: [facility] PCO Associate Professional Member Role: Primary Care Nurse Address: Address: [address] [place] [address]- [place] Name: Gina Grant RN Position: [facility] RN Member Role: Primary Care Nurse Name: Juliann Ratliff RN Position: [facility] RN Supv Member Role: Primary Care Nurse Name: Holly Alvarez RN Position: [facility] RN Member Role: Primary Care Nurse Name: Mary Alice Martins RN Position: [facility] Hospital Curriculum Manager Member Role: Primary Care Nurse Name: Not on Staff, PCP Position: [facility] Physician (General Medicine) Member Role: PCP Name: Kate Agosto RN Position: [facility] RN Member Role: Primary Care Nurse Name: Brenda Licona RN Position: [facility] SN RN Member Role: Primary Care Nurse Name: Marjorie Patton RN Position: [facility] RN Member Role: Primary Care Nurse Name: Denys Galindo RN Position: [facility] RN Member Role: Primary Care Nurse Name: Rosy Mcneill RN Position: [facility] RN Member Role: Primary Care Nurse Name: Kiet FLORIAN Attending Position: [facility] ED Medicine MD Name: Cindi Herring RN Position: [facility] ED RN W/OE and Tasks Member Role: Patient Care Provider Name: Michelle Smith Position: [facility] ED OA Charge Member Role: ED Associate Name: Eleanor Baig MD Position: [facility] Resident Member Role: ED Resident Address: Address: [address] [place] [address] [place] [address]- [place] Name: Roxie Perez Position: [facility] ED TA [facility] Care Team Related Persons Name: BEASLEY CHRISTIAN Address: [place] [address]
--- OUTSIDE RECORDS SUMMARY | 2024-10-05 16:03 | XMS_ITS | Continuity of Care Document ---
Author Organization [facility] ter Address [address] [place] [id number]- Care Team Providers Care Procedures Nurse Name Role Phone Not on Staff, PCP Primary Care Physician Unavail able Encounter [facility] Date(s): 02/05/24 - 02/06/[address] [address]- Encounter Diagnosis Lumbar strain(Final) - 02/06/24 Discharge Disposition: A-D/C Home Attending Physician: Nicole Mejía MD Admitting Physician: Nicole Mejía MD Referring Physician: Not on Staff, Referring [...] Start Date: 10/06/23 Status: Ordered nystatin topical [id number] u/gm powder 1 application, Topically, 2 times [...] Exam Date Time Procedure Performing Provider Status 02/06/24 2:45 AM Lumbar Spine 2 or 3 Views Abraham Duran francisco; Auth (Verified) Notes: (Lumbar Spine 2 or 3 Views) Reason For Exam: with Pain;Trauma RESULT: Lumbar Spine 2 or 3 Views Lumbar Spine 2 or 3 Views Hx of Present Illness: fall from bed tonioght while dreaming pt states she was dreaming and rolled out of bed, c o fo R knee pain . +head strike, denies Loc, denies blood thinners; Reason: Trauma; with Pain; Clinical Question(s): Fracture Dislocation COMPARISON: None. FINDINGS: Very limited examination due to lack of bony detail particularly on the lateral view. No definite acute bony abnormalities are seen. Moderate diffuse osteoporosis. If lumbar spine injury is highly suspected, correlation with a CT scan of the lumbosacral spine is advised. Normal disc configuration. Normal alignment. No spondylolysis or spondylolisthesis. Normal soft tissues. Probable prior cholecystectomy. IMPRESSION: Very limited examination due to lack of bony detail and the positioning. Moderate diffuse osteoporosis. No definite acute fracture or dislocation seen. However if lumbosacral spine injury is highly suspected, correlation with a CT scan of the lumbosacral spine is advised. WSN: [id number] Ordering Physician: Catrachita Babb Dictated By: Prabhjot Bautista MD, V Dictated Date/Time: 02/06/24 9:21 am Reviewed By: Prabhjot Bautista MD, V Signed By: Prabhjot Bautista MD, V Signed Date/Time: 02/06/24 9:21 am Transcribed By: EVY Transcribed Date/Time: 02/06/24 9:17 am * Exam Date Time Procedure Performing Provider Status 02/06/24 2:45 AM Chest 2 Views Frontal and Lat Kamlesh Duran (Verified) Notes: (Chest 2 Views Frontal and Lat) Reason For Exam: fall out of bed without reason.;Other: RESULT: Chest 2 Views Frontal and Lat Examination: Chest performed on 02/06/2024. History: Fall from bed. Findings: Frontal and lateral views of the chest are compared to a prior study dated 10/07/2023. The cardiac silhouette is enlarged. Pulmonary vascular congestion is noted. The osseous and soft tissue structures are unremarkable. Impression: Pulmonary vascular congestion. WSN: [id number] Ordering Physician: Catrachita Babb Dictated By: Radha Hong MD Dictated Date/Time: 02/06/24 8:25 am Reviewed By: Radha Hong MD Signed By: Radha Hong MD Signed Date/Time: 02/06/24 8:25 am Transcribed By: EVY Transcribed Date/Time: 02/06/24 8:24 am * Exam Date Time Procedure Performing Provider Status 02/06/24 2:[address] Cervical Spine W/O Contrast Daisy Duran (Verified) Notes: (CT Cervical Spine W/O Contrast) Reason For Exam: Neck trauma, dangerous injury mechanism;Other: RESULT: CT Cervical Spine W/O Contrast CT Head/Brain W/O Contrast, CT Cervical Spine W/O Contrast INDICATION: Hx of Present Illness: fall from bed tonioght while dreaming pt states she was dreamingand rolled out of bed, c o fo R knee pain . +head strike, denies Loc, denies blood thinners; Reason: Trauma; Clinical Question(s): Hematoma TECHNIQUE: Noncontrast head CT using axial technique was reconstructed in axial and coronal planes.Noncontrast spiral CT through the cervical spine was formatted in 3 planes. Automatic tube modulation was used for the cervical spine and iterative dose reconstruction was used for both the head and cervical spine to optimize scan parameters and image quality. CTDIvol Body: 14.80 mGy, DLP Body: 374 mGy*cm. CTDIvol Head: 47.60 mGy, DLP Head: 773 mGy*cm. COMPARISON: CT head 10/07/2023. FINDINGS: Business Solution Analyst View Findings, Lines and Tubes: None. BRAIN AND EXTRA-AXIAL SPACES: No parenchymal hemorrhage, midline shift, or mass effect. Donahue-white matter differentiation is wellpreserved. No acute infarct. Negative insular ribbon sign. Atherosclerotic vascular calcification of the carotid arteries but negative hyperdense vessel sign. Unchanged subcentimeter calcification ofthe left frontal lobe. Mild prominence of the ventricles and sulci consistent with parenchymal volume loss. Mild low-density white matter changes. No subarachnoid hemorrhage. No subdural or epidural collection. CALVARIUM, SKULL BASE, AND SOFT TISSUES: No fractures or suspicious bony lesions. The paranasal sinuses and mastoid air cells are clear. Status-post left lens extraction. Unchanged posttreatment changes of the right globe. The extracranial soft tissues are unremarkable. CERVICAL SPINE: No fracture. No acute osseous abnormalities. Normal alignment. No locked or perched facet. Moderate multilevel degenerative disc space narrowingand end plate irregularity. OTHER BONES: No acute abnormality. CERVICAL SOFT TISSUES AND LUNG APICES: Normal soft tissues. Visualized lung apices are clear. Visualized thyroid gland is atrophic. IMPRESSION: No acute abnormality of the head or cervical spine. Wet read provided via [facility] by Dr. Palafox on 02/06/2024 2:19 AM. I have personally reviewed the images and I agree with this report. WSN: [id number] Ordering Physician: Catrachita Babb Dictated By: Terrence Palafox DO Dictated Date/Time: 02/06/24 8:16 am Reviewed By: Wilder Varghese MD Signed By: Wilder Varghese MD Signed Date/Time: 02/06/24 8:21 am Transcribed By: EVY Transcribed Date/Time: 02/06/24 2:20 am * Exam Date Time Procedure Performing Provider Status 02/06/24 2:[address] Head/Brain W/O Contrast May Duran; Auth (Verified) Notes: (CT Head/Brain W/O Contrast) Reason For Exam: Trauma RESULT: CT Head/Brain W/O Contrast CT Head/Brain W/O Contrast, CT Cervical Spine W/O Contrast INDICATION: Hx of Present Illness: fall from bed tonioght while dreaming pt states she was dreamingand rolled out of bed, c o fo R knee pain . +head strike, denies Loc, denies blood thinners; Reason: Trauma; Clinical Question(s): Hematoma TECHNIQUE: Noncontrast head CT using axial technique was reconstructed in axial and coronal planes.Noncontrast spiral CT through the cervical spine was formatted in 3 planes. Automatic tube modulation was used for the cervical spine and iterative dose reconstruction was used for both the head and cervical spine to optimize scan parameters and image quality. CTDIvol Body: 14.80 mGy, DLP Body: 374 mGy*cm. CTDIvol Head: 47.60 mGy, DLP Head: 773 mGy*cm. COMPARISON: CT head 10/07/2023. FINDINGS: Business Solution Analyst View Findings, Lines and Tubes: None. BRAIN AND EXTRA-AXIAL SPACES: No parenchymal hemorrhage, midline shift, or mass effect. Donahue-white matter differentiation is wellpreserved. No acute infarct. Negative insular ribbon sign. Atherosclerotic vascular calcification of the carotid arteries but negative hyperdense vessel sign. Unchanged subcentimeter calcification ofthe left frontal lobe. Mild prominence of the ventricles and sulci consistent with parenchymal volume loss. Mild low-density white matter changes. No subarachnoid hemorrhage. No subdural or epidural collection. CALVARIUM, SKULL BASE, AND SOFT TISSUES: No fractures or suspicious bony lesions. The paranasal sinuses and mastoid air cells are clear. Status-post left lens extraction. Unchanged posttreatment changes of the right globe. The extracranial soft tissues are unremarkable. CERVICAL SPINE: No fracture. No acute osseous abnormalities. Normal alignment. No locked or perched facet. Moderate multilevel degenerative disc space narrowingand end plate irregularity. OTHER BONES: No acute abnormality. CERVICAL SOFT TISSUES AND LUNG APICES: Normal soft tissues. Visualized lung apices are clear. Visualized thyroid gland is atrophic. IMPRESSION: No acute abnormality of the head or cervical spine. Wet read provided via [facility] by Dr. Palafox on 02/06/2024 2:19 AM. I have personally reviewed the images and I agree with this report. WSN: [id number] Ordering Physician: Catrachita Babb Dictated By: Terrence Palafox DO Dictated Date/Time: 02/06/24 8:16 am Reviewed By: Wilder Varghese MD Signed By: Wilder Varghese MD Signed Date/Time: 02/06/24 8:21 am Transcribed By: EVY Transcribed Date/Time: 02/06/24 2:20 am Vital Signs Most recent to oldest [Reference Range]: 1 2 3 Oxygen Saturation [94-100 %] 100 % (02/06/24 6:32 AM) 99 % (02/06/24 3:18 AM) 100 % (02/06/24 1:02 AM) Pulse Rate [55-90 bpm] 73 bpm (02/06/24 6:32 AM) 81 bpm (02/06/24 3:18 AM) 78 bpm (02/06/24 1:02 AM) Blood Pressure [90-138/55-84 mm Hg] 123/68mm Hg (02/06/24 6:32 AM) 127/74mm Hg (02/06/24 3:18 AM) 132/79mm Hg (02/06/24 1:02 AM) Respiratory Rate [16-30 br/min] 13 br/min *L* (02/06/24 6:32 AM) 16 br/min (02/06/24 3:18 AM) 18 br/min (02/06/24 1:02 AM) Temperature [96.8-100.4 DegF] 98.1 DegF (02/06/24 12:10 AM) Liters per Minute 2 L/min (02/06/24 6:32 AM) 2 L/min (02/06/24 3:18 AM) 2 L/min (02/06/24 1:02 AM) Mode of Delivery (Oxygen) Nasal cannula (02/06/24 6:32 AM) Nasal cannula (02/06/24 3:18 AM) Nasal cannula (02/06/24 1:02 AM) Blood pressure sites Arm, left (02/06/24 6:32 AM) Arm, left (02/06/24 3:18 AM) Arm, left (02/06/24 1:02 AM) Temperature Route Oral (02/06/24 12:10 AM) Social History Social History Type Response Smoking Status Former smoker, quit more than 30 days ago entered on: 10/12/21 Sex Patient Care team information Care Team Personnel Name: Imelda Mayo Position: [facility] Onco RN Member Role: Primary Care Nurse Name: Maggie Lambert RN Position: [facility] RN Member Role: Primary Care Nurse Name: Krystal Bruner RN Position: [facility] RN Member Role: Primary Care Nurse Name: Dallas Dennis RN Position: [facility] ED RN W/OE and Tasks Member Role: Primary Care Nurse Name: Dilcia Schneider RN Position: [facility] RN Member Role: Primary Care Nurse Name: Dilia Bond RN Position: [facility] AMB Nurse Member Role: Primary Care Nurse Name: Chelly Dickerson RN Position: [facility] RN Member Role: Primary Care Nurse Name: Lary Johnson RN Position: [facility] RN Member Role: Primary Care Nurse Name: Irlanda Hauser RN Position: [facility] RN Member Role: Primary Care Nurse Name: Claire Jarrell RN Position: [facility] SN RN Member Role: Primary Care Nurse Name: Jade Livingston RN Position: [facility] RN Member Role: Primary Care Nurse Name: Rosita OWNERCharo Position: [facility] PCO Associate Professional Member Role: Primary Care Nurse Address: Address: [address] [place] [address] Name: Gina Grant RN Position: [facility] RN Member Role: Primary Care Nurse Name: Juliann Ratliff RN Position: [facility] RN Supv Member Role: Primary Care Nurse Name: Holly Alvarez RN Position: [facility] RN Member Role: Primary Care Nurse Name: Mary Alice Martins RN Position: [facility] Medical Payment Poster Member Role: Primary Care Nurse Name: Not on Staff, PCP Position: [facility] Physician (General Medicine) Member Role: PCP Name: Kate Agosto RN Position: [facility] RN Member Role: Primary Care Nurse Name: Brenda Licona RN Position: [facility] SN RN Member Role: Primary Care Nurse Name: Marjorie Patton RN Position: [facility] RN Member Role: Primary Care Nurse Name: Denys Galindo RN Position: [facility] RN Member Role: Primary Care Nurse Name: Rosy Mcneill RN Position: [facility] RN Member Role: Primary Care Nurse Care Team Related Persons Name: ALBINA BEASLEY Address: [place] [address]
--- NOTE | 2024-10-05 16:23 | ECG_ITS ---
Test Reason : dizziness Blood Pressure : / mmHG Vent. Rate : 059 BPM Atrial Rate : 059 BPM P-R Int : 160 ms QRS Dur : 088 ms QT Int : 470 ms P-R-T Axes : 043 -13 036 degrees QTc Int : 465 ms Sinus bradycardia Possible Anterior infarct , age undetermined Abnormal ECG When compared with ECG of 20-SEP-2023 20:23, Premature ventricular complexes are no longer Present Referred By: Sona Moseley Electronically Signed By:PATRIC SAL
--- NOTE | 2024-10-05 16:31 | ED.GENADULT ---
HPI - General Adult General Chief complaint: General Medical Stated complaint: LETHARGIC FROM SNF, DIZZY WHEN STANDING Time Seen by Provider: 10/05/24 15:31 Source: patient and EMS Mode of arrival: EMS Limitations: no limitations History of Present Illness ED Provider: Dr. Sona Moseley HPI narrative: patient comes to the emergency room via ambulance from a shelter facility. According to the patient, patient states that she is being helped to get out of her bed, told the nurse that she was a bit lightheaded, did not pass out, no chest pain or shortness of breath. Patient states that once she has had down, she started feeling back to normal immediately. However, the staff insisted that the patient needed to come to the emergency room. At this time, patient states that she feels completely back to normal. Patient denies any recent viral illnesses, no URI or UTI symptoms Related Data Home Medications ?Medication ?Instructions ?Recorded ?Confirmed acamprosate 333 mg tablet,delayed 333 mg PO TID 06/28/23 08/28/23 release albuterol sulfate 90 mcg/actuation 2 puff inhalation BID 06/28/23 08/28/23 aerosol inhaler (ProAir HFA) alprazolam 0.25 mg tablet (Xanax) 0.25 mg PO BID PRN Anxiety 06/28/23 08/28/23 bisacodyl 10 mg rectal suppository 10 mg NV DAILY PRN Constipation 06/28/23 08/28/23 bisacodyl 5 mg tablet,delayed 30 mg PO BEDTIME 06/28/23 08/28/23 release (Dulcolax (bisacodyl)) cetirizine 10 mg tablet 10 mg PO DAILY 06/28/23 08/28/23 dextran 70-hypromellose eye drops 1 drp ophthalmic (eye) TID 06/28/23 08/28/23 in a dropperette (Artificial Tears (PF) drops in a dropperette) diclofenac sodium 1 % topical gel 4 g topical QID PRN Pain 06/28/23 08/28/23 escitalopram oxalate 20 mg tablet 20 mg PO DAILY 06/28/23 08/28/23 fluticasone fur. 200 mcg-umeclid 1 inh inhalation DAILY 06/28/23 08/28/23 62.5 mcg-vilant 25 mcg inhalat.powder (Trelegy Ellipta) fluticasone propionate 50 1 spray intranasal BID 06/28/23 08/28/23 mcg/actuation nasal spray,suspension (Flonase Allergy Relief) folic acid 1 mg tablet 1 mg PO DAILY 06/28/23 08/28/23 furosemide 20 mg tablet 60 mg PO DAILY 06/28/23 08/28/23 gabapentin 300 mg capsule 300 mg PO TID 06/28/23 08/28/23 ipratropium 0.5 mg-albuterol 3 mg 3 ml inhalation Q8H PRN Shortness 06/28/23 08/28/23 (2.5 mg base)/3 mL nebulization Of Breath Or Wheezing soln lactulose 10 gram/15 mL oral 30 ml PO Q2D@0900,1500,2100 06/28/23 08/28/23 solution levetiracetam 500 mg tablet 500 mg PO BID 06/28/23 08/28/23 (Keppra) lidocaine 5 % topical patch 1 patch topical DAILY 06/28/23 08/28/23 magnesium hydroxide 400 mg/5 mL 30 ml PO DAILY PRN Constipation 06/28/23 08/28/23 oral suspension (Milk of Magnesia) methyl salicylate 15 %-menthol 10 1 appl topical DAILY PRN neck pain 06/28/23 08/28/23 % topical cream (Muscle Rub) metoprolol tartrate 25 mg tablet 25 mg PO DAILY 06/28/23 08/28/23 multivitamin 1 tab PO DAILY 06/28/23 08/28/23 naloxone 4 mg/actuation nasal 4 mg intranasal Q3M PRN Opioid 06/28/23 08/28/23 spray (Narcan) Overdose nystatin 100,000 unit/gram topical 1 appl topical BID 06/28/23 08/28/23 powder oxycodone 5 mg tablet 5 mg PO Q4H PRN Moderate Pain 06/28/23 08/28/23 (Scale Score 5-6) pantoprazole 40 mg tablet,delayed 40 mg PO DAILY@0630 06/28/23 08/28/23 release sodium phosphates 19 gram-7 118 ml NV DAILY PRN Constipation 06/28/23 08/28/23 gram/118 mL enema (Fleet Enema) thiamine HCl (vitamin B1) 100 mg 100 mg PO DAILY 06/28/23 08/28/23 tablet tizanidine 2 mg tablet 2 mg PO Q8H PRN Muscle Spasm 06/28/23 08/28/23 trazodone 50 mg tablet 50 mg PO BEDTIME 06/28/23 08/28/23 ipratropium 0.5 mg-albuterol 3 mg 3 ml inhalation Q8H 08/29/23 08/29/23 (2.5 mg base)/3 mL nebulization soln Previous Rx's ?Medication ?Instructions ?Recorded benzonatate 100 mg capsule 200 mg (2 x 100 mg) PO TID #30 caps 07/01/23 guaifenesin 600 mg tablet, 600 mg PO BID #20 tabs 07/01/23 extended release 12 hr (Mucinex) prednisone 20 mg tablet 40 mg (2 x 20 mg) PO DAILY #10 tabs 09/01/23 Allergies Allergy/AdvReac Type Severity Reaction Status Date / Time acetaminophen [From Tylenol] Allergy Unknown Verified 10/05/24 15:44 Review of Systems Review of Systems: Constitutional : No Weight loss, No Fever, No Chills, No Night Sweats, No Fatigue, No Malaise ENT/Mouth : No Hearing loss, No Ear Pain, No Nasal Congestion, No Sinus Pain, No Hoarseness, No sore throat, No Rhinorrhea, No Swallowing Difficulty Eyes: No Eye Pain, No Swelling, No Redness, No Foreign Body, No Discharge, No Vision Changes Cardiovascular : No Chest Pain, No SOB, No Dyspnea on Exertion, No Orthopnea, No Edema, No Palpitations, complaining of lightheadedness with standing and resolution of symptoms with sitting Respiratory : No Cough, No Sputum, No Wheezing, No Smoke Exposure, No Dyspnea Gastrointestinal : No Nausea, No Vomiting, No Diarrhea, No Constipation, No abdominal Pain, No Hematochezia, No Melena Genitourinary : no irregular bleeding, No Dysuria, No Urinary Frequency, No Hematuria, No Urinary Incontinence, No Urgency, No Flank Pain, No Urinary Flow Changes, No Hesitancy Musculoskeletal : No joint pain, No Myalgias, No Joint Swelling Skin : No Skin Lesions, No rash Neuro : No Weakness, No Numbness, No Paresthesias, No Loss of Consciousness, No Dizziness, No Headache Psych : No Anxiety/Panic, No Depression, No SI/HI/AH/VH, No Social Issues, Heme/Lymph: No Bruising, No Bleeding,No Lymphadenopathy Endocrine : No Polyuria, No Polydipsia, No Temperature Intolerance [facility] Past Medical History Medical History Hepatitis C Splenomegaly Cirrhosis Type 2 diabetes mellitus Morbid obesity CHF (congestive heart failure) Social History Social History Household Members: None Housing: Detention Do you presently have visiting nurse or other home services: No Alcohol intake: former Patient Tobacco Use Status: Current everyday Tobacco user Tobacco use type: Cigarette Cigarettes Per Day: 10 Years Smoked: 40 Use of substances other than those prescribed or required for medical reasons: No Advance Directives: Yes Advance Directives on File: Yes Advance Directives Date on File: 08/29/23 service: No Physical Exam ED Vital Signs: Vital Signs - 24 hr 10/05/24 15:36 10/05/24 19:25 10/05/24 21:01 Temperature 98.4 F Pulse Rate 61 64 60 Respiratory Rate 20 20 18 Blood Pressure 110/57 L 112/58 L 117/57 L Pulse Oximetry 96 95 Oxygen Delivery Method Room Air Room Air BMI result Body Mass Index 40.3 Const Other: Appearance: Alert. Oriented X3. No acute distress. well-appearing Eyes: Pupils equal, round and reactive to light. ENT: Pharynx normal. Neck: Normal inspection. Neck supple. No lymph nodes noted. No crepitus CVS: Normal heart rate and rhythm. Pulses normal. Normal S1 and S2 Respiratory: No respiratory distress. Breath sounds normal. No Wheezing. No rales Abdomen: Soft and nontender. No rigidity. No distention. Skin: Skin warm and dry. Normal skin color. Normal skin turgor. Extremities: No lower extremity edema. No Lacerations. No Rash Neuro: Oriented X 3. No motor deficit. No sensory deficit. Moving all extremities. No slurred speech. CN 2 through 12 grossly intact Psych: calm, cooperative, normal affect Course Course Course Narrative: all of patient's labs pending - orthostatic vitals pending - at this time, patient feels back to normal, patient is asymptomatic Medical Decision Making Medical Decision Making MDM Narrative: my interpretation of labs: Patient's hemoglobin is a bit lower than usual, 9.4, couple of weeks ago it was 11.3. . Chemistry shows a creatinine of 1.65 which is new. -Patient is not on any blood thinners, denies black stool, patient refused digital rectal exam for guaiac testing - Patient states that she drinks plenty of fluids, patient agreeable to get IV fluids and get her creatinine rechecked - here in the emergency room and with EMS, patient has not had any episodes of hypotension or hypoxia. Patient states that she feels completely normal - patient is unable to stand at baseline. Orthostatics from lying down to sitting: negative - patient was supposed to receive IV fluids, and then repeat creatinine, patient refused. -patient has already an IV, patient eventually extubated fluids. Please recheck creatinine levels after IV fluids. If creatinine improves, patient likely to be discharged home. - Patient remains asymptomatic, vitals stable. - Sign-out given to my colleague Dr. Thornton Differential Diagnosis Differential Diagnoses: The differential diagnosis associated with the presentation includes ( orthostatic hypotension) Lab Data MDM Lab Attestation statement: I reviewed the patient's lab results. 10/05/24 17:13 10/05/24 17:13 Labs: Lab Results 10/05/24 Range/Units 17:13 WBC 4.0 L (4.8-10.8) X10*3/uL RBC 3.86 L (4.20-5.50) X10*6/uL Hgb 9.4 L (12.0-16.0) g/dl Hct 31.1 L (37.0-47.0) % MCV 80.6 (80.0-98.0) fL MCH 24.4 L (27.0-33.0) pg MCHC 30.2 L (31.0-35.0) g/dl RDW 18.0 H (11.0-16.0) % Plt Count 59 L D (160-400) X10*3/uL MPV 11.0 (9.4-12.3) fL Immature Gran % (Auto) 0.5 H (0.0-0.4) % Neut % (Auto) 67.1 (45-73) % Lymph % (Auto) 16.2 L (20-40) % [place] % (Auto) 13.9 H (2-11) % Eos % (Auto) 1.8 (0-4) % Baso % (Auto) 0.5 (0-2) % Lymph # (Auto) 0.6 L (1.2-4.9) X10*3/uL [place] # (Auto) 0.6 (0.1-1.2) X10*3/uL Eos # (Auto) 0.1 (0.0-0.4) X10*3/uL Baso # (Auto) 0.0 (0.0-0.2) X10*3/uL Abs Immat Gran (auto) 0.02 (0.00-0.03) X10*3/uL Absolute Neuts (auto) 2.7 (2.0-8.3) x10*3/uL Absolute Nucleated RBC 0.000 (0.0-0.012) X10*3/uL Nucleated RBC % (auto) 0.0 (0.0-0.2) /100WBC PT 12.6 H (10.9-12.4) SEC INR 1.1 (0.9-1.1) Sodium 143 (135-145) mmol/L Potassium 4.4 (3.3-5.1) mmol/L Chloride 106 (96-108) mmol/L Carbon Dioxide 28 (22-29) mmol/L Anion Gap 13 (12-20) BUN 37 H (9-16) mg/dL Creatinine 1.65 H (0.5-1.4) mg/dL Estim Creat Clear Calc 31.0 Estimated GFR 30 Random Glucose 123 H (60-115) mg/dL Calcium 8.9 D (8.4-10.2) mg/dL Magnesium 2.4 (1.6-2.6) mg/dL Total Bilirubin 0.6 (0.0-1.0) mg/dL Direct Bilirubin 0.3 (0.0-0.5) mg/dL AST 26 (5-31) U/L ALT < 6 (0-31) U/L Alkaline Phosphatase 89 (39-117) U/L Troponin I High Sens 4.2 (<3.5-17.0) ng/L Total Protein 5.8 L (6.5-8.0) g/dL Albumin 3.1 L (3.5-5.0) g/dL Ethyl Alcohol < 10 mg/dL Critical Care Time Critical Care Time Critical Care Time: Yes Total Critical Care Time: 45 Attestation: I have personally provided critical care time. Time includes review of lab data, radiology results, discussion with consultants, and monitoring for potential decompensation. Intervention performed as documented. Discharge Plan Discharge Clinical Impression: OLEG (acute kidney injury) Patient Disposition: Still a Patient Prescriptions: No Action multivitamin Tablet 1 tab PO DAILY trazodone 50 mg Tablet 50 mg PO BEDTIME cetirizine 10 mg Tablet 10 mg PO DAILY levetiracetam [Keppra] 500 mg Tablet 500 mg PO BID thiamine HCl (vitamin B1) 100 mg Tablet 100 mg PO DAILY alprazolam [Xanax] 0.25 mg Tablet 0.25 mg PO BID PRN (Reason: Anxiety) magnesium hydroxide [Milk of Magnesia] 400 mg/5 mL Suspension 30 ml PO DAILY PRN (Reason: Constipation) bisacodyl 10 mg Suppository 10 mg NV DAILY PRN (Reason: Constipation) pantoprazole 40 mg Tablet,Delayed Release (Dr/Ec) 40 mg PO DAILY@0630 lidocaine 5 % Adhesive Patch,Medicated 1 patch TOPICAL DAILY Rx Instructions: apply to hips topically; remove after 12 hrs Fleet Enema 19-7 gram/118 mL Enema 118 ml NV DAILY PRN (Reason: Constipation) gabapentin 300 mg Capsule 300 mg PO TID folic acid 1 mg Tablet 1 mg PO DAILY bisacodyl [Dulcolax (bisacodyl)] 5 mg Tablet,Delayed Release (Dr/Ec) 30 mg PO BEDTIME furosemide 20 mg Tablet 60 mg PO DAILY nystatin 100,000 unit/gram Powder 1 appl TOPICAL BID Rx Instructions: apply to [place] albuterol sulfate [ProAir HFA] 90 mcg/actuation Hfa Aerosol Inhaler 2 puff INHALATION BID fluticasone propionate [Flonase Allergy Relief] 50 mcg/actuation [place],Suspension 1 spray INTRANASAL BID Rx Instructions: administer into each nostril oxycodone 5 mg Tablet 5 mg PO Q4H PRN (Reason: Moderate Pain (Scale Score 5-6)) escitalopram oxalate 20 mg Tablet 20 mg PO DAILY Artificial Tears (PF) Dropperette 1 drp OPHTHALMIC (EYE) TID Rx Instructions: 1 drop into both eyes metoprolol tartrate 25 mg Tablet 25 mg PO DAILY acamprosate 333 mg Tablet,Delayed Release (Dr/Ec) 333 mg PO TID lactulose 10 gram/15 mL Solution 30 ml PO Q2D@0900,1500,2100 Muscle Rub 15-10 % Cream 1 appl TOPICAL DAILY PRN (Reason: neck pain) Rx Instructions: apply to neck diclofenac sodium 1 % Gel 4 g TOPICAL QID PRN (Reason: Pain) Rx Instructions: apply to hips naloxone [Narcan] 4 mg/actuation [place],Non-Aerosol 4 mg INTRANASAL Q3M PRN (Reason: Opioid Overdose) Rx Instructions: spray 1 dose into ONE nostril; alternate nostrils w each dose until help arrives Trelegy Ellipta 200-62.5-25 mcg Blister With Device 1 inh INHALATION DAILY ipratropium-albuterol 0.5 mg-3 mg(2.5 mg base)/3 mL Solution For Nebulization 3 ml INHALATION Q8H PRN (Reason: Shortness Of Breath Or Wheezing) tizanidine 2 mg Tablet 2 mg PO Q8H PRN (Reason: Muscle Spasm) benzonatate 100 mg Capsule 200 mg PO TID Qty: 30 0RF guaifenesin [Mucinex] 600 mg Tablet Extended Release 12hr 600 mg PO BID Qty: 20 0RF ipratropium-albuterol 0.5 mg-3 mg(2.5 mg base)/3 mL solution for nebulization 3 ml inhalation Q8H prednisone 20 mg tablet 40 mg PO DAILY Qty: 10 0RF Print Language: [place]er
[2024-10-05 17:18] LABS: MANUAL DIFF FLAG NO
[2024-10-05 17:21] LABS: Basophils Percent Auto 0.5 % (0-2); Eosinophils Absolute Auto 0.1 X10*3/uL (0.0-0.4); Eosinophils Percent Auto 1.8 % (0-4); Hematocrit 31.1 % (37.0-47.0); Hemoglobin 9.4 g/dl (12.0-16.0); Imm Gran Abs Auto 0.02 X10*3/uL (0.00-0.03); Imm Gran Pct Auto 0.5 % (0.0-0.4); Lymphocytes Absolute Auto 0.6 X10*3/uL (1.2-4.9); Lymphocytes Percent Auto 16.2 % (20-40); Mean Corpuscular HGB Conc 30.2 g/dl (31.0-35.0); Mean Corpuscular Hemoglobin 24.4 pg (27.0-33.0); Mean Corpuscular Volume 80.6 fL (80.0-98.0); Monocytes Absolute Auto 0.6 X10*3/uL (0.1-1.2); Monocytes Percent Auto 13.9 % (2-11); Neutrophils Absolute Auto 2.7 x10*3/uL (2.0-8.3); Neutrophils Percent Auto 67.1 % (45-73); Red Blood Count 3.86 X10*6/uL (4.20-5.50)
[2024-10-05 17:26] LABS: INTERNATIONAL NORM RATIO 1.1 (0.9-1.1); Platelet Count 59 X10*3/uL (160-400); Prothrombin Time 12.6 SEC (10.9-12.4)
[2024-10-05 17:37] LABS: Alanine Aminotransferase < 6 U/L (0-31); Albumin Level 3.1 g/dL (3.5-5.0); Alkaline Phosphatase 89 U/L (39-117); Anion Gap 13 (12-20); Aspartate Amino Transferase 26 U/L (5-31); Bilirubin Direct 0.3 mg/dL (0.0-0.5); Bilirubin Total 0.6 mg/dL (0.0-1.0); Blood Urea Nitrogen 37 mg/dL (9-16); Calcium 8.9 mg/dL (8.4-10.2); Carbon Dioxide 28 mmol/L (22-29); Chloride 106 mmol/L (96-108); Estimated Glomerular Filt Rate 30; Ethanol < 10 mg/dL; Glucose Random 123 mg/dL (60-115); Magnesium 2.4 mg/dL (1.6-2.6); Potassium 4.4 mmol/L (3.3-5.1); Sodium 143 mmol/L (135-145); Total Protein 5.8 g/dL (6.5-8.0)
[2024-10-05 17:43] LABS: Troponin-I High Sensitivity 4.2 ng/L (<3.5-17.0)
--- NOTE | 2024-10-05 19:24 | PC.NURSE ---
patient is not able to stand, uses wheelchair at baseline. orthos not able to complete.
[2024-10-05 19:25] VITALS: BP 112/58; PULSE 64; RESP 20
[2024-10-05 21:01] VITALS: BP 117/57; PULSE 60; RESP 18; O2SAT 95
[2024-10-05 21:15] VITALS: BP 108/67; PULSE 61
[2024-10-05 21:16] VITALS: BP 119/55; PULSE 61
[2024-10-05 22:09] VITALS: BP 118/55; PULSE 61; RESP 20; O2SAT 99
[2024-10-05 23:23] LABS: Anion Gap 11 (12-20); Blood Urea Nitrogen 34 mg/dL (9-16); Calcium 8.1 mg/dL (8.4-10.2); Carbon Dioxide 29 mmol/L (22-29); Chloride 108 mmol/L (96-108); Creatinine Clr Calc Pharmacy 34.2; Estimated Glomerular Filt Rate 34; Glucose Random 112 mg/dL (60-115); Potassium 4.3 mmol/L (3.3-5.1); Sodium 144 mmol/L (135-145)
[2024-10-06 02:24] VITALS: BP 116/60; PULSE 64; RESP 18; TEMP 36.7; O2SAT 99
== END 2024-10-06 02:24 | disposition skilled nursing facility (03) ==
PROVIDERS: Emergency Medicine; Emergency Provider Internal Medicine; PCP Internal Medicine
DX: R53.83 Other fatigue (principal); N17.9 Acute kidney failure, unspecified; R00.1 Bradycardia, unspecified; R94.31 Abnormal electrocardiogram [ECG] [EKG]; R42 Dizziness and giddiness; F17.210 Nicotine dependence, cigarettes, uncomplicated; Z79.899 Other long term (current) drug therapy; Z51.81 Encounter for therapeutic drug level monitoring
CPT/HCPCS: 36415; 80048; 80076; 80307; 83735; 84484; 85025; 85610; 93005; 99283; 99284

== ENCOUNTER → 2024-10-05 16:23 | Outpatient (BNV) | payer MEDICARE, MEDICAID, SELFPAY | PROVIDERS: Emergency Provider Internal Medicine; PCP Internal Medicine; Visit Provider Internal Medicine | DX: R00.1 Bradycardia, unspecified (principal); R94.31 Abnormal electrocardiogram [ECG] [EKG] | CPT/HCPCS: 93010 ==

== ENCOUNTER 2024-10-13 13:23 | Emergency (ER) | payer MEDICARE, MEDICAID, SELFPAY ==
--- NOTE | ~2024-10-13 | XR_ITS ---
EXAMINATION: XR CHEST CLINICAL INFORMATION: weakness COMPARISON: 09/20/2023 TECHNIQUE: 2 views of the chest were obtained. FINDINGS: There is mild cardiomegaly. No other Significant abnormality is noted involving the heart, lungs, mediastinum, bony thorax or soft tissues. XR/XR chest 2V IMPRESSION: Mild cardiomegaly. No acute intrathoracic disease. Electronically signed by: Mark Cooper MD 10/13/2024 08:32 PM [facility]
[2024-10-13 13:32] VITALS: BP 106/52; PULSE 62; BMI 40.3
[2024-10-13 14:23] VITALS: BP 109/47; PULSE 58; RESP 16; TEMP 35.8; O2SAT 98
[2024-10-13 16:00] VITALS: BP 111/50; PULSE 56; RESP 12; TEMP 36.4; O2SAT 97
[2024-10-13 17:27] LABS: MANUAL DIFF FLAG NO
[2024-10-13 17:29] LABS: Basophils Percent Auto 0.8 % (0-2); Eosinophils Absolute Auto 0.1 X10*3/uL (0.0-0.4); Eosinophils Percent Auto 1.7 % (0-4); Hematocrit 29.2 % (37.0-47.0); Hemoglobin 8.9 g/dl (12.0-16.0); Imm Gran Abs Auto 0.01 X10*3/uL (0.00-0.03); Imm Gran Pct Auto 0.3 % (0.0-0.4); Lymphocytes Absolute Auto 0.7 X10*3/uL (1.2-4.9); Lymphocytes Percent Auto 20.1 % (20-40); Mean Corpuscular HGB Conc 30.5 g/dl (31.0-35.0); Mean Corpuscular Hemoglobin 24.5 pg (27.0-33.0); Mean Corpuscular Volume 80.2 fL (80.0-98.0); Mean Platelet Volume 10.5 fL (9.4-12.3); Monocytes Absolute Auto 0.4 X10*3/uL (0.1-1.2); Monocytes Percent Auto 11.2 % (2-11); Neutrophils Absolute Auto 2.4 x10*3/uL (2.0-8.3); Neutrophils Percent Auto 65.9 % (45-73); Red Blood Count 3.64 X10*6/uL (4.20-5.50); Red Cell Distribution Width 17.6 % (11.0-16.0); White Blood Count 3.6 X10*3/uL (4.8-10.8)
[2024-10-13 17:30] LABS: Appearance Urine Clear; Color Urine Yellow; Glucose Urine UA Negative (Negative); Leukocyte Esterase Urine Small (1+) (Negative); Nitrite Urine Negative (Negative); UMIC TRIGGER UACC YES; Urine Blood Negative (Negative); Urine Ketones Negative (Negative); Urine Protein Negative (Neg-Trace)
[2024-10-13 17:34] LABS: Platelet Count 49 X10*3/uL (160-400)
[2024-10-13 17:44] LABS: Bacteria Urine 1+ (None Seen); Hyaline Casts Urine 0-2 /LPF (0-2); RBC Urine 0-2 /HPF (0-2); Squamous Epithelial Cell Urine 0-2 /HPF (0-2); UACC Culture Trigger YES; WBC Urine 0-5 /HPF (0-5)
[2024-10-13 17:49] LABS: Alanine Aminotransferase < 6 U/L (0-31); Albumin Level 3.1 g/dL (3.5-5.0); Alkaline Phosphatase 67 U/L (39-117); Anion Gap 10 (12-20); Aspartate Amino Transferase 24 U/L (5-31); Bilirubin Total 0.8 mg/dL (0.0-1.0); Blood Urea Nitrogen 45 mg/dL (9-16); Calcium 9.1 mg/dL (8.4-10.2); Carbon Dioxide 32 mmol/L (22-29); Chloride 106 mmol/L (96-108); Estimated Glomerular Filt Rate 30; Glucose Random 113 mg/dL (60-115); Potassium 4.1 mmol/L (3.3-5.1); Sodium 144 mmol/L (135-145); Total Protein 5.8 g/dL (6.5-8.0)
[2024-10-13 17:59] VITALS: BP 117/51; PULSE 59; RESP 12; TEMP 36.1; O2SAT 95
--- NOTE | 2024-10-13 18:58 | ED_ITS ---
HPI - General Adult General Chief complaint: General Medical Stated complaint: low BP Time Seen by Provider: 10/13/24 18:58 History of Present Illness ED Provider: Mini ANDRADE narrative: The patient is a 79-year-old female who lives at the [facility]. She has a history of dementia. Apparently staff felt that she was more confused today also they felt her blood pressures were somewhat low. She was therefore sent to the emergency room. The patient herself is awake and alert. She is quite cooperative. She has a cheerful demeanor. She says that she feels shaky your than usual today but she does not have any other complaints. She denies any pain. She denies headache, chest pain, pleuritic pain, abdominal pain. She denies feeling short of breath. She denies nausea or vomiting. Related Data Home Medications ?Medication ?Instructions ?Recorded ?Confirmed acamprosate 333 mg tablet,delayed 333 mg PO TID 06/28/23 08/28/23 release albuterol sulfate 90 mcg/actuation 2 puff inhalation BID 06/28/23 08/28/23 aerosol inhaler (ProAir HFA) alprazolam 0.25 mg tablet (Xanax) 0.25 mg PO BID PRN Anxiety 06/28/23 08/28/23 bisacodyl 10 mg rectal suppository 10 mg ME DAILY PRN Constipation 06/28/23 08/28/23 bisacodyl 5 mg tablet,delayed 30 mg PO BEDTIME 06/28/23 08/28/23 release (Dulcolax (bisacodyl)) cetirizine 10 mg tablet 10 mg PO DAILY 06/28/23 08/28/23 dextran 70-hypromellose eye drops 1 drp ophthalmic (eye) TID 06/28/23 08/28/23 in a dropperette (Artificial Tears (PF) drops in a dropperette) diclofenac sodium 1 % topical gel 4 g topical QID PRN Pain 06/28/23 08/28/23 escitalopram oxalate 20 mg tablet 20 mg PO DAILY 06/28/23 08/28/23 fluticasone fur. 200 mcg-umeclid 1 inh inhalation DAILY 06/28/23 08/28/23 62.5 mcg-vilant 25 mcg inhalat.powder (Trelegy Ellipta) fluticasone propionate 50 1 spray intranasal BID 06/28/23 08/28/23 mcg/actuation nasal spray,suspension (Flonase Allergy Relief) folic acid 1 mg tablet 1 mg PO DAILY 06/28/23 08/28/23 furosemide 20 mg tablet 60 mg PO DAILY 06/28/23 08/28/23 gabapentin 300 mg capsule 300 mg PO TID 06/28/23 08/28/23 ipratropium 0.5 mg-albuterol 3 mg 3 ml inhalation Q8H PRN Shortness 06/28/23 08/28/23 (2.5 mg base)/3 mL nebulization Of Breath Or Wheezing soln lactulose 10 gram/15 mL oral 30 ml PO Q2D@0900,1500,2100 06/28/23 08/28/23 solution levetiracetam 500 mg tablet 500 mg PO BID 06/28/23 08/28/23 (Keppra) lidocaine 5 % topical patch 1 patch topical DAILY 06/28/23 08/28/23 magnesium hydroxide 400 mg/5 mL 30 ml PO DAILY PRN Constipation 06/28/23 08/28/23 oral suspension (Milk of Magnesia) methyl salicylate 15 %-menthol 10 1 appl topical DAILY PRN neck pain 06/28/23 08/28/23 % topical cream (Muscle Rub) metoprolol tartrate 25 mg tablet 25 mg PO DAILY 06/28/23 08/28/23 multivitamin 1 tab PO DAILY 06/28/23 08/28/23 naloxone 4 mg/actuation nasal 4 mg intranasal Q3M PRN Opioid 06/28/23 08/28/23 spray (Narcan) Overdose nystatin 100,000 unit/gram topical 1 appl topical BID 06/28/23 08/28/23 powder oxycodone 5 mg tablet 5 mg PO Q4H PRN Moderate Pain 06/28/23 08/28/23 (Scale Score 5-6) pantoprazole 40 mg tablet,delayed 40 mg PO DAILY@0630 06/28/23 08/28/23 release sodium phosphates 19 gram-7 118 ml ME DAILY PRN Constipation 06/28/23 08/28/23 gram/118 mL enema (Fleet Enema) thiamine HCl (vitamin B1) 100 mg 100 mg PO DAILY 06/28/23 08/28/23 tablet tizanidine 2 mg tablet 2 mg PO Q8H PRN Muscle Spasm 06/28/23 08/28/23 trazodone 50 mg tablet 50 mg PO BEDTIME 06/28/23 08/28/23 ipratropium 0.5 mg-albuterol 3 mg 3 ml inhalation Q8H 08/29/23 08/29/23 (2.5 mg base)/3 mL nebulization soln Previous Rx's ?Medication ?Instructions ?Recorded benzonatate 100 mg capsule 200 mg (2 x 100 mg) PO TID #30 caps 07/01/23 guaifenesin 600 mg tablet, 600 mg PO BID #20 tabs 07/01/23 extended release 12 hr (Mucinex) prednisone 20 mg tablet 40 mg (2 x 20 mg) PO DAILY #10 tabs 09/01/23 Allergies Allergy/AdvReac Type Severity Reaction Status Date / Time acetaminophen [From Tylenol] Allergy Unknown Verified 10/13/24 13:34 Review of Systems 2 Review of Systems: Yes all other systems are reviewed and are negative [facility] Past Medical History Medical History Hepatitis C Splenomegaly Cirrhosis Type 2 diabetes mellitus Morbid obesity CHF (congestive heart failure) Social History Social History Household Members: None Housing: Custodial Do you presently have visiting nurse or other home services: No Alcohol intake: former Patient Tobacco Use Status: Current everyday Tobacco user Tobacco use type: Cigarette Cigarettes Per Day: 10 Years Smoked: 40 Smoked in Last 30 Days: No Use of substances other than those prescribed or required for medical reasons: No Advance Directives: Yes Advance Directives on File: Yes Advance Directives Date on File: 08/29/23 Do you have a plan to hurt others: No Plan service: No Physical Exam ED Vital Signs: Vital Signs - 24 hr 10/13/24 14:23 10/13/24 16:00 10/13/24 17:59 Temperature 96.4 F L 97.5 F 96.9 F Pulse Rate 58 56 59 Respiratory Rate 16 12 12 Blood Pressure 109/47 L 111/50 L 117/51 L Pulse Oximetry 98 97 95 Oxygen Delivery Method Nasal Cannula Room Air Nasal Cannula Oxygen Flow Rate 2 2 10/13/24 21:32 10/14/24 00:30 10/14/24 00:38 Temperature 98.0 F 97.7 F 97.7 F Pulse Rate 95 67 67 Respiratory Rate 18 18 18 Blood Pressure 98/51 L 114/56 L 114/56 L Pulse Oximetry 97 95 95 Oxygen Delivery Method Room Air Room Air Room Air Oxygen Flow Rate BMI result Body Mass Index 40.3 Const Other: The patient has a large 71-year-old woman. She is awake and alert. She seemed intermittently slightly shaky or tremulous but did not seem obviously acutely ill. She did not seem in pain or obvious respiratory difficulty. HENMT Other: Face is symmetrical. Mucous membranes moist. Eyes Other: Pupils are round equal, extraocular movements intact, eyes unremarkable Neck Neck: Yes full ROM and Yes no JVD Resp Effort & Inspection: normal respiratory effort Auscultation: clear to auscultation bilaterally Cardio Rate: regular rate Rhythm: regular rhythm Heart sounds: S1 normal heart sound present and S2 normal heart sound present GI Other: Abdomen is soft and nontender. Rectal exam revealed pale yellow stool. Skin Other: Skin is dry and unremarkable Neuro Other: The patient is awake and alert. She apparently has a history of dementia but she seemed oriented and appropriate. She did not seem obviously demented. Cranial nerves were intact. She moves her extremities symmetrically. No pronator drift. No focal findings. She seemed to have a slight tremulousness. Extrem Other: No calf swelling or tenderness, no asymmetry, no peripheral edema Medications Administered Discontinued Medications Generic Name Dose Route Start Last Admin Trade Name Freq PRN Reason Stop Dose Admin Lactated Ringer's 1,000 mls @ 999 mls/hr 10/13/24 19:30 10/13/24 22:30 Lr IV 10/13/24 20:30 Infused .Q1H1M SCOUT Infusion Medical Decision Making Medical Decision Making MDM Narrative: The patient is a 79-year-old woman who [facility]. Apparently staff felt that she seemed more confused today. She was afebrile. Rectal temperature was normal. She was not tachypneic or tachycardic. Her initial blood pressures were slightly low. Her CBC showed a hemoglobin of 8.9 which is a slight drop from her most recent hemoglobin a week ago. Her BUN was elevated compared to her last phlebotomy. Rectal exam was done. Stool is pale yellow. No melena. Overall I felt the patient's workup was negative. Perhaps she is mildly dehydrated given her rise in BUN. She was given a L of IV fluids. She was observed. She seemed less tremulous and seemed to feel better. She was hungry and ate food in the emergency department. She denied chest pain. She denied pleuritic pain. She denied shortness of breath. She is on nasal oxygen at the detention. Ultimately the patient was returned to the detention. Lab Data 10/13/24 17:20 10/13/24 17:20 Labs: Lab Results 10/13/24 10/13/24 Range/Units 17:20 20:36 WBC 3.6 L (4.8-10.8) X10*3/uL RBC 3.64 L (4.20-5.50) X10*6/uL Hgb 8.9 L (12.0-16.0) g/dl Hct 29.2 L (37.0-47.0) % MCV 80.2 (80.0-98.0) fL MCH 24.5 L (27.0-33.0) pg MCHC 30.5 L (31.0-35.0) g/dl RDW 17.6 H (11.0-16.0) % Plt Count 49 L (160-400) X10*3/uL MPV 10.5 (9.4-12.3) fL Immature Gran % (Auto) 0.3 (0.0-0.4) % Neut % (Auto) 65.9 (45-73) % Lymph % (Auto) 20.1 (20-40) % Wright % (Auto) 11.2 H (2-11) % Eos % (Auto) 1.7 (0-4) % Baso % (Auto) 0.8 (0-2) % Lymph # (Auto) 0.7 L (1.2-4.9) X10*3/uL Wright # (Auto) 0.4 (0.1-1.2) X10*3/uL Eos # (Auto) 0.1 (0.0-0.4) X10*3/uL Baso # (Auto) 0.0 (0.0-0.2) X10*3/uL Abs Immat Gran (auto) 0.01 (0.00-0.03) X10*3/uL Absolute Neuts (auto) 2.4 (2.0-8.3) x10*3/uL Absolute Nucleated RBC 0.000 (0.0-0.012) X10*3/uL Nucleated RBC % (auto) 0.0 (0.0-0.2) /100WBC Sodium 144 (135-145) mmol/L Potassium 4.1 (3.3-5.1) mmol/L Chloride 106 (96-108) mmol/L Carbon Dioxide 32 H (22-29) mmol/L Anion Gap 10 L (12-20) BUN 45 H (9-16) mg/dL Creatinine 1.66 H (0.5-1.4) mg/dL Estim Creat Clear Calc 32.0 Estimated GFR 30 Random Glucose 113 (60-115) mg/dL Calcium 9.1 D (8.4-10.2) mg/dL Total Bilirubin 0.8 (0.0-1.0) mg/dL AST 24 (5-31) U/L ALT < 6 (0-31) U/L Alkaline Phosphatase 67 (39-117) U/L Ammonia 39 (13-55) umol/L Troponin I High Sens 5.7 (<3.5-17.0) ng/L C-Reactive Protein < 0.10 (< or = 0.50) mg/dL Total Protein 5.8 L (6.5-8.0) g/dL Albumin 3.1 L (3.5-5.0) g/dL Urine Color Yellow Urine Appearance Clear Urine pH 7.0 (5.0-9.0) Ur Specific Ramona 1.010 (1.005-1.025) Urine Protein Negative (Neg-Trace) mg/dL Urine Glucose (UA) Negative (Negative) mg/dL Urine Ketones Negative (Negative) mg/dL Urine Blood Negative (Negative) Urine Nitrite Negative (Negative) Ur Leukocyte Esterase Small (1+) H (Negative) Urine RBC 0-2 (0-2) /HPF Urine WBC 0-5 (0-5) /HPF Ur Squamous Epith Cells 0-2 (0-2) /HPF Urine Bacteria 1+ (None Seen) Hyaline Casts 0-2 (0-2) /LPF Influenza Type A (PCR) NEGATIVE (Negative) Influenza Type B (PCR) NEGATIVE (Negative) RSV RNA Qual (PCR) NEGATIVE (Negative) SARS-CoV-2 RNA (RT-PCR) NEGATIVE (Negative) Independent Interpretation I performed an independent interpretation of an: EKG Interpretation: EKG at 16:31 shows sinus bradycardia 59 beats per minute. No definite acute ischemic changes Discharge Plan Discharge Clinical Impression: Weakness Patient Disposition: [facility] [place] Additional Instructions: No acutely dangerous process has been identified. She may have been mildly dehydrated and she was given 1 liter of IV fluids. Please continue regular medications and have her follow up with your regular doctor. She seems to have some gradually worsening anemia and some gradually worsening renal function. Return to the emergency room if acutely worse. Prescriptions: No Action multivitamin Tablet 1 tab PO DAILY trazodone 50 mg Tablet 50 mg PO BEDTIME cetirizine 10 mg Tablet 10 mg PO DAILY levetiracetam [Keppra] 500 mg Tablet 500 mg PO BID thiamine HCl (vitamin B1) 100 mg Tablet 100 mg PO DAILY alprazolam [Xanax] 0.25 mg Tablet 0.25 mg PO BID PRN (Reason: Anxiety) magnesium hydroxide [Milk of Magnesia] 400 mg/5 mL Suspension 30 ml PO DAILY PRN (Reason: Constipation) bisacodyl 10 mg Suppository 10 mg ME DAILY PRN (Reason: Constipation) pantoprazole 40 mg Tablet,Delayed Release (Dr/Ec) 40 mg PO DAILY@0630 lidocaine 5 % Adhesive Patch,Medicated 1 patch TOPICAL DAILY Rx Instructions: apply to hips topically; remove after 12 hrs Fleet Enema 19-7 gram/118 mL Enema 118 ml ME DAILY PRN (Reason: Constipation) gabapentin 300 mg Capsule 300 mg PO TID folic acid 1 mg Tablet 1 mg PO DAILY bisacodyl [Dulcolax (bisacodyl)] 5 mg Tablet,Delayed Release (Dr/Ec) 30 mg PO BEDTIME furosemide 20 mg Tablet 60 mg PO DAILY nystatin 100,000 unit/gram Powder 1 appl TOPICAL BID Rx Instructions: apply to periarea albuterol sulfate [ProAir HFA] 90 mcg/actuation Hfa Aerosol Inhaler 2 puff INHALATION BID fluticasone propionate [Flonase Allergy Relief] 50 mcg/actuation [place],Suspension 1 spray INTRANASAL BID Rx Instructions: administer into each nostril oxycodone 5 mg Tablet 5 mg PO Q4H PRN (Reason: Moderate Pain (Scale Score 5-6)) escitalopram oxalate 20 mg Tablet 20 mg PO DAILY Artificial Tears (PF) Dropperette 1 drp OPHTHALMIC (EYE) TID Rx Instructions: 1 drop into both eyes metoprolol tartrate 25 mg Tablet 25 mg PO DAILY acamprosate 333 mg Tablet,Delayed Release (Dr/Ec) 333 mg PO TID lactulose 10 gram/15 mL Solution 30 ml PO Q2D@0900,1500,2100 Muscle Rub 15-10 % Cream 1 appl TOPICAL DAILY PRN (Reason: neck pain) Rx Instructions: apply to neck diclofenac sodium 1 % Gel 4 g TOPICAL QID PRN (Reason: Pain) Rx Instructions: apply to hips naloxone [Narcan] 4 mg/actuation Clio,Non-Aerosol 4 mg INTRANASAL Q3M PRN (Reason: Opioid Overdose) Rx Instructions: spray 1 dose into ONE nostril; alternate nostrils w each dose until help arrives Trelegy Ellipta 200-62.5-25 mcg Blister With Device 1 inh INHALATION DAILY ipratropium-albuterol 0.5 mg-3 mg(2.5 mg base)/3 mL Solution For Nebulization 3 ml INHALATION Q8H PRN (Reason: Shortness Of Breath Or Wheezing) tizanidine 2 mg Tablet 2 mg PO Q8H PRN (Reason: Muscle Spasm) benzonatate 100 mg Capsule 200 mg PO TID Qty: 30 0RF guaifenesin [Mucinex] 600 mg Tablet Extended Release 12hr 600 mg PO BID Qty: 20 0RF ipratropium-albuterol 0.5 mg-3 mg(2.5 mg base)/3 mL solution for nebulization 3 ml inhalation Q8H prednisone 20 mg tablet 40 mg PO DAILY Qty: 10 0RF Interventions: ED Discharge Assessment Last Done: 10/14/24 00:38 Discharge Date/Time: 10/14/24 00:42 Print Language: Grenadian
[2024-10-13 19:29] LABS: C Reactive Protein < 0.10 mg/dL (< or = 0.50)
[2024-10-13 19:45] LABS: Troponin-I High Sensitivity 5.7 ng/L (<3.5-17.0)
--- NOTE | 2024-10-13 19:54 | PC.NURSE ---
Pt changed into hospital gown. Pt requested and given water Plan of care ongoing.
[2024-10-13 20:10] LABS: Influenza A PCR NEGATIVE (Negative); Influenza B PCR NEGATIVE (Negative); Resp Syncy Virus RNA Qual PCR NEGATIVE (Negative); SARS COV2 PCR INHOUSE NEGATIVE (Negative)
[2024-10-13] MEDS: Lactated Ringers 1,000 ML 999 ML IV (20:29)
--- NOTE | 2024-10-13 20:33 | PC.NURSE ---
Pt medicated per jan Pt requested and given ice. Plan of care ongoing.
--- NOTE | 2024-10-13 20:42 | PC.NURSE ---
Pt unsure how IV was pulled out. Pt cleaned new line to be placed. Plan of care ongoing.
[2024-10-13 20:48] LABS: Ammonia 39 umol/L (13-55)
[2024-10-13 21:32] VITALS: BP 98/51; PULSE 95; RESP 18; TEMP 36.7; O2SAT 97
--- NOTE | 2024-10-13 22:35 | PC.NURSE ---
This RN called and spoke with Maricarmen at [facility] @ [phone], report given. Plan of care ongoing.
[2024-10-14 00:30] VITALS: BP 114/56; PULSE 67; RESP 18; TEMP 36.5; O2SAT 95
[2024-10-14 00:38] VITALS: BP 114/56; PULSE 67; RESP 18; TEMP 36.5; O2SAT 95
--- OUTSIDE RECORDS SUMMARY | 2024-10-17 11:49 | XMS_ITS | Clinical Summary ---
Author Organization Unknown Care Team Providers Care [employer] Player Name Role Phone MIGUEL SOLUTION SALES SENIOR EXECUTIVE, TAM Unavailable Unavailab ronn TAFOYA PT, ELLEN Unavailable Unavailable MARTIN OT, IZABELA Unavailable Unavailabl e Payers Payer Name Policy Type Policy Number Effective Date Expira tion Date MEDICARE - [facility] - [place] [id number] SELF PAY Problems Condition Name Condition Details Condition Category Status Onset Date Resolution Date Last Treatment Date Treating Clinician Comments ENCNTR FOR SURGICAL AFTCR FOLLOWING SURGERY ON THE DGSTV SYS Active 11-07 00:00: 00 HYPERTENSIVE HEART DISEASE WITH HEART FAILURE Active 11-07 00:00: 00 CHRONIC DIASTOLIC (CONGESTIVE) HEART FAILURE Active 11-07 00:00: 00 TYPE 2 DIABETES MELLITUS WITHOUT COMPLICATION S Active 11-07 00:00: 00 CHRONIC OBSTRUCTIVE PULMONARY DISEASE, UNSPECIFIED Active 11-07 00:00: 00 ACUTE POSTHEMORRHA GIC ANEMIA Active 11-07 00:00: 00 THROMBOCYTOP ENIA, UNSPECIFIED Active 11-07 00:00: 00 GENERALIZED ANXIETY DISORDER Active 11-07 00:00: 00 DEPRESSION, UNSPECIFIED Active 11-07 00:00: 00 HYPERLIPIDEM IA, UNSPECIFIED Active 11-07 00:00: 00 UNSPECIFIED CIRRHOSIS OF LIVER Active 11-07 00:00: 00 EPILEPSY, UNSP, NOT INTRACTABLE, WITHOUT STATUS EPILEPTICUS Active 11-07 00:00: 00 ALCOHOL ABUSE, UNCOMPLICATE D Active 11-07 00:00: 00 NICOTINE DEPENDENCE, CIGARETTES, UNCOMPLICATE D Active 11-07 00:00: 00 ACQUIRED ABSENCE OF OTHER SPECIFIED PARTS OF DIGESTIVE TRACT Active 11-07 00:00: 00 DEPENDENCE ON WHEELCHAIR Active 11-07 00:00: 00 INTERMEDIATE (CURRENT) USE OF ORAL HYPOGLYCEMIC DRUGS Active - 00:00: 00 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 Ordering Clinician Indication Dosage Frequency Signature (SIG) Comments Components Trelegy Ellipta 200 mcg-62.5 mcg-25 mcg powder for inhalation - 00:00: 00 Yes [id number] Per instruc tions DAILY Per instructio ns DAILY (route: inhalation ) Med Classific ation: Respirato ry Therapy Agents prednisone 10 mg tablet 18 00:00: 00 Yes [id number] 1 tablet DAILY 1 tablet DAILY (route: oral) Med Classific ation: Endocrine alprazolam 1 mg tablet -06 00:00: 00 Yes [id number] FOR ANXIETY Per instruc tions DAILY NEEDED Per instructio ns DAILY NEEDED (route: oral) Med Classific ation: Central Nervous System Agents FeroSul 325 mg (65 mg iron) tablet - 00:00: 00 Yes [id number] Per instruc tions TWICE DAILY Per instructio ns TWICE DAILY (route: oral) Med Classific ation: Electroly te Balance-N utritiona l Products metformin 500 mg tablet - 00:00: 00 Yes [id number] Per instruc tions TWICE DAILY Per instructio ns TWICE DAILY (route: oral) Med Classific ation: Endocrine losartan 25 mg tablet - 00:00: 00 Yes [id number] Per instruc tions DAILY Per instructio ns DAILY (route: oral) Med Classific ation: Cardiovas cular Therapy Agents quetiapine 100 mg tablet 5-14 00:00: 00 Yes [id number] Per instruc tions EVERY DAY AT BEDTIME Per instructio ns EVERY DAY AT BEDTIME (route: oral) Med Classific ation: Central Nervous System Agents escitalopra m 20 mg tablet 5-14 00:00: 00 Yes [id number] Per instruc tions EVERY Per instructio ns EVERY (route: oral) Med Classific ation: Central Nervous System Agents ACETAMINOPH EN ORAL 6-17 00:00: 00 04-25 00:00 :00 No 500 mg 500 mg (route: ) Med Classific ation: ANALGESIC , ANTI-INFL AMMATORY OR ANTIPYRET IC VITAMIN C ORAL 09 00:00: 00 12-15 00:00 :00 No 500 mg1 T BID 500 mg1 T BID (route: ) Alternate Route: PO . Med Classific ation: ELECTROLY TE BALANCE-N UTRITIONA L PRODUCTS ONDANSETRON HCL ORAL 12-05 00:00: 00 12-11 00:00 :00 No FOR NAUSEA 4 mg1 T Q 8 H PRN 4 mg1 T Q 8 H PRN (route: ) Alternate Route: PO . Med Classific ation: GASTROINT ESTINAL THERAPY AGENTS NEOMYCIN-PO LYMYXIN B-DEXAMETHA SONE OPHTHALMIC (EYE)HALMIC 04 00:00: 00 07-18 00:00 :00 No 3.5 mg/g-10 ,000 unit/g- 0.1 % QHS 3.5 mg/g-10,00 0 unit/g-0.1 % QHS (route: ) Alternate Route: TO THE OS . Med Classific ation: OPHTHALMI C AGENTS QUETIAPINE ORAL 2018-11 00:00: 00 01-23 00:00 :00 No 100 mg1 T QHS 100 mg1 T QHS (route: ) Alternate Route: PO . Med Classific ation: CENTRAL NERVOUS SYSTEM AGENTS QUETIAPINE ORAL 2018-11-05 00:00: 00 09-26 00:00 :00 No 100 mg 100 mg (route: ) Med Classific ation: CENTRAL NERVOUS SYSTEM AGENTS ALBUTEROL SULFATE INHALATION 2018-11-28 00:00: 00 11-19 00:00 :00 No 90 mcg/act uation2 PUFFS ITL Q 4 H PRN 90 mcg/actuat ion2 PUFFS ITL Q 4 H PRN (route: ) Med Classific ation: RESPIRATO RY THERAPY AGENTS ALBUTEROL SULFATE INHALATION 2018-11 00:00: 00 09-27 00:00 :00 No 90 mcg/act uation 90 mcg/actuat ion (route: ) Med Classific ation: RESPIRATO RY THERAPY AGENTS IBUPROFEN ORAL 06 00:00: 00 05-04 00:00 :00 No 400 mg1 T QID PRN 400 mg1 T QID PRN (route: ) Alternate Route: PO . Med Classific ation: ANALGESIC , ANTI-INFL AMMATORY OR ANTIPYRET IC NAPROXEN ORAL 05-31 00:00: 00 08-29 00:00 :00 No 500 mg1 T BID 500 mg1 T BID (route: ) Alternate Route: PO . Med Classific ation: ANALGESIC , ANTI-INFL AMMATORY OR ANTIPYRET IC FUROSEMIDE ORAL 11-22 00:00: 00 12-22 00:00 :00 No 40 mg1 T BID 40 mg1 T BID (route: ) Alternate Route: PO . Med Classific ation: CARDIOVAS CULAR THERAPY AGENTS TOBRAMYCIN- DEXAMETHASO NE OPHTHALMIC (EYE) 07-10 00:00: 00 08-01 00:00 :00 No 0.3-0.1 %1 DROP QID 0.3-0.1 %1 DROP QID (route: ) Alternate Route: INTO OS . Med Classific ation: OPHTHALMI C AGENTS PREDNISONE ORAL 2018-11 00:00: 00 11-08 00:00 :00 No 20 mg3 TS D 20 mg3 TS D (route: ) Alternate Route: PO . Med Classific ation: ENDOCRINE PREDNISONE ORAL 17 00:00: 00 05-05 00:00 :00 No 10 mg 10 mg (route: ) Med Classific ation: ENDOCRINE SPIRONOLACT ONE ORAL 1-16 00:00: 00 12-22 00:00 :00 No 50 mg1 T D 50 mg1 T D (route: ) Alternate Route: PO . Med Classific ation: CARDIOVAS CULAR THERAPY AGENTS BISACODYL RECTAL 4-10 00:00: 00 03-01 00:00 :00 No 10 mg UNW AND I 1 SUP REC 1 TO 2 TIMES D 10 mg UNW AND I 1 SUP REC 1 TO 2 TIMES D (route: ) Med Classific ation: GASTROINT ESTINAL THERAPY AGENTS NYSTOPICAL TOPICAL 2018-11 024 00:00: 00 09-06 00:00 :00 No 100,000 unit/gr am 100,000 unit/gram (route: ) Med Classific ation: DERMATOLO GICAL NYSTATIN TOPICAL 4-10 00:00: 02-28 00:00 :00 No 100,000 unit/gr am BID 100,000 unit/gram BID (route: ) Alternate Route: EXT AA . Med Classific ation: DERMATOLO GICAL PANTOPRAZOL E ORAL 2018-11 022 00:00: 00 09-12 00:00 :00 No 20 mg 20 mg (route: ) Med Classific ation: GASTROINT ESTINAL THERAPY AGENTS PANTOPRAZOL E ORAL 30 00:00: 00 11-04 00:00 :00 No 20 mg 20 mg (route: ) Med Classific ation: GASTROINT ESTINAL THERAPY AGENTS PROAIR HFA INHALATION 410 00:00: 00 03-02 00:00 :00 No 90 mcg/act uation2 PUFFS Q 4 TO 6 H 90 mcg/actuat ion2 PUFFS Q 4 TO 6 H (route: ) Alternate Route: PO . Med Classific ation: RESPIRATO RY THERAPY AGENTS ALPRAZOLAM ORAL 2018-11 1-14 00:00: 00 09-27 00:00 :00 No 0.5 mg 0.5 mg (route: ) Med Classific ation: CENTRAL NERVOUS SYSTEM AGENTS ESCITALOPRA M OXALATE ORAL 2018-1116 00:00: 00 10-07 00:00 :00 No 20 mg 20 mg (route: ) Med Classific ation: CENTRAL NERVOUS SYSTEM AGENTS ESCITALOPRA M OXALATE ORAL 02 00:00: 00 08-06 00:00 :00 No 20 mg1 T QAM 20 mg1 T QAM (route: ) Alternate Route: PO . Med Classific ation: CENTRAL NERVOUS SYSTEM AGENTS ESCITALOPRA M OXALATE ORAL 2018-1116 00:00: 00 09-24 00:00 :00 No 10 mg 10 mg (route: ) Med Classific ation: CENTRAL NERVOUS SYSTEM AGENTS ONDANSETRON ORAL 01-04 00:00: 00 01-15 00:00 :00 No 4 mgONE T Q 6 H PRN 4 mgONE T Q 6 H PRN (route: ) Alternate Route: PO . Med Classific ation: GASTROINT ESTINAL THERAPY AGENTS IPRATROPIUM -ALBUTEROL INHALATION 2018-11 00:00: 00 01-25 00:00 :00 No 0.5 mg-3 mg(2.5 mg base)/3 mL 0.5 mg-3 mg(2.5 mg base)/3 mL (route: ) Med Classific ation: RESPIRATO RY THERAPY AGENTS CEFAZOLIN IN DEXTROSE (ISO-OSMOTI C) INTRAVENOUS 2018-11 00:00: 00 09-21 00:00 :00 No 2 gram/10 0 mL 2 gram/100 mL (route: ) Med Classific ation: ANTI-INFE CTIVE AGENTS VANCOMYCIN ORAL 2018-11 00:00: 00 08-30 00:00 :00 No 125 mg 125 mg (route: ) Med Classific ation: ANTI-INFE CTIVE AGENTS FIRVANQ ORAL 2018-11 00:00: 00 09-29 00:00 :00 No 25 mg/mL 25 mg/mL (route: ) Med Classific ation: ANTI-INFE CTIVE AGENTS GAVILYTE-G ORAL 08-06 00:00: 08-07 00:00 :00 No 236-22. 74-6.74 -5.86 gram UTD 236-22.74- 6.74 -5.86 gram UTD (route: ) Alternate Route: AND DRINK 8 OZ PO . Med Classific ation: GASTROINT ESTINAL THERAPY AGENTS METHYLPREDN ISOLONE ORAL 07-17 00:00: 00 07-23 00:00 :00 No 4 mg 4 mg (route: ) Med Classific ation: ENDOCRINE SYMBICORT INHALATION 07-17 00:00: 00 08-16 00:00 :00 No 160-4.5 mcg/act uation2 PUFFS BID 160-4.5 mcg/actuat ion2 PUFFS BID (route: ) Alternate Route: PO . Med Classific ation: RESPIRATO RY THERAPY AGENTS SARNA ORIGINAL TOPICAL 06-12 00:00: 00 07-02 00:00 :00 No 0.5-0.5 % 1 TO 2 TIMES D 0.5-0.5 % 1 TO 2 TIMES D (route: ) Alternate Route: TOPICALLY . Med Classific ation: DERMATOLO GICAL DOXYCYCLINE HYCLATE ORAL 04-23 00:00: 00 05-03 00:00 :00 No 100 mg 100 mg (route: ) Med Classific ation: ANTI-INFE CTIVE AGENTS DULERA INHALATION 04-23 00:00: 00 05-23 00:00 :00 No 200-5 mcg/act uation 200-5 mcg/actuat ion (route: ) Med Classific ation: RESPIRATO RY THERAPY AGENTS NICOTINE TRANSDERMAL 03-20 00:00: 00 04-17 00:00 :00 No 21 mg/24 hr1 PATCH QD 21 mg/24 hr1 PATCH QD (route: ) Alternate Route: TO SKIN . Med Classific ation: CHEMICAL DEPENDENC Y, AGENTS TO TREAT Vital Signs Vital Name Observation Time Observation Value Commen ts Temperature 2022-08-27 10:26:00.000 98.1 [degF] Temperature 2022-08-03 11:07:00.000 98.6 [degF] Temperature 2022-07-30 10:21:00.000 97.7 [degF] Temperature 2022-07-27 13:47:00.000 98.8 [degF] Pulse 2022-08-27 10:26:00.000 72 /min Pulse 2022-08-20 12:20:00.000 68 /min Pulse 2022-08-13 14:11:00.000 68 /min Pulse 2022-08-03 18:11:00.000 72 /min Pulse 2022-08-03 11:07:00.000 84 /min Pulse 2022-07-30 10:21:00.000 82 /min Pulse 2022-07-27 13:47:00.000 81 /min O2 Saturation (%) 2022-08-20 12:20:00.000 96 % O2 Saturation (%) 2022-08-13 14:11:00.000 96 % O2 Saturation (%) 2022-08-03 18:11:00.000 96 % Respirations 2022-08-27 10:26:00.000 18 /min Respirations 2022-08-03 11:07:00.000 18 /min Respirations 2022-07-30 10:21:00.000 18 /min Respirations 2022-07-27 13:47:00.000 18 /min Systolic Blood Pressure 2022-08-27 10:26:00.000 125 mm [Hg] Systolic Blood Pressure 2022-08-13 14:11:00.000 122 mm [Hg] Systolic Blood Pressure 2022-08-03 11:07:00.000 124 mm [Hg] Systolic Blood Pressure 2022-07-30 10:21:00.000 122 mm [Hg] Systolic Blood Pressure 2022-07-27 13:47:00.000 123 mm [Hg] Diastolic Blood Pressure 2022-08-27 10:26:00.000 72 mm [Hg] Diastolic Blood Pressure 2022-08-13 14:11:00.000 68 mm [Hg] Diastolic Blood Pressure 2022-08-03 11:07:00.000 72 mm [Hg] Diastolic Blood Pressure 2022-07-30 10:21:00.000 70 mm [Hg] Diastolic Blood Pressure 2022-07-27 13:47:00.000 69 mm [Hg] Plan of Treatment Planned Activity Planned Date Details Comments Future Scheduled Test PHYSICAL T HERAPIST TO EVALUATE PATIENT SECONDARY TO FUNCTIONAL DEFICITS/SAFETY CONCERNS. [code = PHYSICAL THERAPIST TO EVALUATE PATIENT SECONDARY TO FUNCTIONAL DEFICITS/SAFETY CONCERNS.] Future Scheduled Test OCCUPATION AL THERAPIST TO EVALUATE PATIENT SECONDARY TO DEFICITS/CONCERNS FOUND DURING EVALUATION [code = OCCUPATIONAL THERAPIST TO EVALUATE PATIENT SECONDARY TO DEFICITS/CONCERNS FOUND DURING EVALUATION ] Future Scheduled Test PHYSICAL T HERAPIST TO ASSESS BEST PRACTICE INTERVENTIONS TO ASSIST PATIENTS TO IMPROVE OR STABILIZE MEDICAL STATUS AND PREVENT RE-HOSPITALIZATION. MEASURES INCLUDING REVIEW AND IDENTIFICATION OF CONCERNS FOR THE FOLLOWING AREAS: DEPRESSION, DRUG REGIMEN, DIABETIC FOOT CARE, ENVIRONMENTAL SAFETY ISSUES AND FALLS, PRESSURE ULCERS, PAIN, AND DISEASE MANAGEMENT. [code = PHYSICAL THERAPIST TO ASSESS BEST PRACTICE INTERVENTIONS TO ASSIST PATIENTS TO IMPROVE OR STABILIZE MEDICAL STATUS AND PREVENT RE-HOSPITALIZATION. MEASURES INCLUDING REVIEW AND IDENTIFICATION OF CONCERNS FOR THE FOLLOWING AREAS: DEPRESSION, DRUG REGIMEN, DIABETIC FOOT CARE, ENVIRONMENTAL SAFETY ISSUES AND FALLS, PRESSURE ULCERS, PAIN, AND DISEASE MANAGEMENT.] Future Scheduled Test PHYSICAL T HERAPY TO ESTABLISH /UPGRADE/DOWNGRADE THERAPEUTIC EXERCISE PROGRAM AND INSTRUCT PATIENT/CAREGIVER ON EXERCISE PRECAUTIONS WITH WRITTEN HOME PROGRAM. MAY INCLUDE PROM, AAROM, AROM, RROM APPROPRIATE TO IMPROVE FUNCTIONAL STRENGTH AND RANGE OF MOTION. [code = PHYSICAL THERAPY TO ESTABLISH /UPGRADE/DOWNGRADE THERAPEUTIC EXERCISE PROGRAM AND INSTRUCT PATIENT/CAREGIVER ON EXERCISE PRECAUTIONS WITH WRITTEN HOME PROGRAM. MAY INCLUDE PROM, AAROM, AROM, RROM APPROPRIATE TO IMPROVE FUNCTIONAL STRENGTH AND RANGE OF MOTION.] Future Scheduled Test PHYSICAL T HERAPY TO INSTRUCT PATIENT/CAREGIVER ON SAFE TRANSFER TECHNIQUES USING PROPER BODY MECHANICS AND EQUIPMENT. [code = PHYSICAL THERAPY TO INSTRUCT PATIENT/CAREGIVER ON SAFE TRANSFER TECHNIQUES USING PROPER BODY MECHANICS AND EQUIPMENT.] Future Scheduled Test PHYSICAL T HERAPY TO INSTRUCT PATIENT/CAREGIVER ON GAIT TRAINING TECHNIQUES USING APPROPRIATE ASSISTIVE DEVICE, PROPER BODY MECHANICS TO IMPROVE MOBILITY, AND PREVENT INJURY OF PATIENT AND/OR CAREGIVER. [code = PHYSICAL THERAPY TO INSTRUCT PATIENT/CAREGIVER ON GAIT TRAINING TECHNIQUES USING APPROPRIATE ASSISTIVE DEVICE, PROPER BODY MECHANICS TO IMPROVE MOBILITY, AND PREVENT INJURY OF PATIENT AND/OR CAREGIVER.] Future Scheduled Test PHYSICAL T HERAPY TO ASSESS AND RECOMMEND HOME SAFETY ADAPTATIONS AND EDUCATE PATIENT /CAREGIVER ON FALL PREVENTION STRATEGIES. [code = PHYSICAL THERAPY TO ASSESS AND RECOMMEND HOME SAFETY ADAPTATIONS AND EDUCATE PATIENT /CAREGIVER ON FALL PREVENTION STRATEGIES.] Future Scheduled Test PHYSICAL T HERAPY TO OBTAIN O2 SATS PRN VIA PULSE OXIMETER INDICATED FOR SHORTNESS OF BREATH, FATIGUE, WEAKNESS, ACTIVITY INTOLERANCE, AND/OR BASELINE MEASUREMENT FOR THERAPY TREATMENT. [code = PHYSICAL THERAPY TO OBTAIN O2 SATS PRN VIA PULSE OXIMETER INDICATED FOR SHORTNESS OF BREATH, FATIGUE, WEAKNESS, ACTIVITY INTOLERANCE, AND/OR BASELINE MEASUREMENT FOR THERAPY TREATMENT.] Future Scheduled Test [facility]INICAL S [facility] 07/27/22 PATIENT IS A 76 YEAR OLD FEMALE REFERRED TO HOME PHYSICAL THERAPY AFTER HOSPITALIZATION AND REHAB STAY SECONDARY TO CHOLECYSTECTOMY ON 07/08/22. PAST MEDICAL HISTORY INCLUDES COPD, ASTHMA, CHF, HYPERCHOLESTEROL, HYPERTENSION, DIABETES, HEPATITIS C, CIRRHOSIS OF THE LIVER, THROMBOCYTOPENIA, ANEMIA, DEPRESSION, ANXIETY, BLIND IN RIGHT EYE. PATIENT LIVES ALONE IN A HANDICAP ACCESSIBLE APARTMENT AND HAS 4 HOURS OF CAREGIVER ASSISTANCE IN THE MORNING AND 2 HOURS EVERY EVENING. CURRENTLY PATIENT IS CONFINED TO HER WHEELCHAIR SECONDARY TO LOWER EXTREMITY WEAKNESS AND INABILITY TO AMBULATE. BILATERAL LOWER EXTREMITY STRENGTH TESTED AT 3 -/5 SHE WAS UNABLE TO MOVE THROUGH FULL AVAILABLE RANGE OF MOTION AGAINST GRAVITY. SHE REQUIRED MINIMUM ASSISTIVE ONE FOR SIT TO STAND TRANSFER AND FOR TOILET TRANSFERS PATIENT DECLINED TRANSFER INTO SHOWER AT THIS TIME. PATIENT NON-AMBULATORY AT THIS TIME. PATIENT IS INDEPENDENT WITH WHEELCHAIR MOBILITY WITHIN HER APARTMENT. PATIENT WILL BENEFIT FROM OCCUPATIONAL THERAPY EVALUATION TO ASSESS ADL FUNCTION MORE CLOSELY. PATIENT WILL BENEFIT FROM CONTINUED PHYSICAL THERAPY SECONDARY TO THE ABOVE DEFICITS WHICH LIMIT HER ABILITY TO FUNCTION SAFELY INSIDE AND OUTSIDE OF HER HOME MAKING HER HOMEBOUND. PATIENT IS EAGER TO IMPROVE HER LEVEL OF FUNCTION AND WAS AN ACTIVE PARTICIPANT IN THE DEVELOPMENT OF THE PLAN OF CARE PLAN: 2X/WK X 5WKS FOR TRANSFER TRAINING, GAIT TRAINING, LOWER EXTREMITY STRENGTHENING WITH THE DEVELOPMENT OF A HOME EXERCISE PROGRAM, STANDING BALANCE ACTIVITIES, PATIENT AND CAREGIVER EDUCATION FOR SAFETY AND FALL PREVENTION. THE PATIENT IS RECEIVING HOMECARE DUE TO NEW ONSET/EXACERBATION OF: POST OP WEAKNESS AND INABILITY TO TRANSFER AND AMBULATE SAFELY RECENT HOSPITALIZATION/INPATIENT ADMISSION RELATED TO: PATIENT UNDERWENT A CHOLECYSTECTOMY ON 07/08/22 NEW OR CHANGED MEDICATIONS PERTINENT TO THE PLAN OF CARE: NA PATIENT LIVING SITUATION/CAREGIVER STATUS: RECENT FALLS: INDICATE REASON THAT THE SKILLS OF A THERAPIST ARE REQUIRED TO ACHIEVE THE ESTABLISHED GOALS: ADDITIONAL DISCIPLINES NEEDED OR DECLINED ORDERED SERVICES: [code = CLINICAL SUMMARY 07/27/22 PATIENT IS A 76 YEAR OLD FEMALE REFERRED TO HOME PHYSICAL THERAPY AFTER HOSPITALIZATION AND REHAB STAY SECONDARY TO CHOLECYSTECTOMY ON 07/08/22. PAST MEDICAL HISTORY INCLUDES COPD, ASTHMA, CHF, HYPERCHOLESTEROL, HYPERTENSION, DIABETES, HEPATITIS C, CIRRHOSIS OF THE LIVER, THROMBOCYTOPENIA, ANEMIA, DEPRESSION, ANXIETY, BLIND IN RIGHT EYE. PATIENT LIVES ALONE IN A HANDICAP ACCESSIBLE APARTMENT AND HAS 4 HOURS OF CAREGIVER ASSISTANCE IN THE MORNING AND 2 HOURS EVERY EVENING. CURRENTLY PATIENT IS CONFINED TO HER WHEELCHAIR SECONDARY TO LOWER EXTREMITY WEAKNESS AND INABILITY TO AMBULATE. BILATERAL LOWER EXTREMITY STRENGTH TESTED AT 3 -/5 SHE WAS UNABLE TO MOVE THROUGH FULL AVAILABLE RANGE OF MOTION AGAINST GRAVITY. SHE REQUIRED MINIMUM ASSISTIVE ONE FOR SIT TO STAND TRANSFER AND FOR TOILET TRANSFERS PATIENT DECLINED TRANSFER INTO SHOWER AT THIS TIME. PATIENT NON-AMBULATORY AT THIS TIME. PATIENT IS INDEPENDENT WITH WHEELCHAIR MOBILITY WITHIN HER APARTMENT. PATIENT WILL BENEFIT FROM OCCUPATIONAL THERAPY EVALUATION TO ASSESS ADL FUNCTION MORE CLOSELY. PATIENT WILL BENEFIT FROM CONTINUED PHYSICAL THERAPY SECONDARY TO THE ABOVE DEFICITS WHICH LIMIT HER ABILITY TO FUNCTION SAFELY INSIDE AND OUTSIDE OF HER HOME MAKING HER HOMEBOUND. PATIENT IS EAGER TO IMPROVE HER LEVEL OF FUNCTION AND WAS AN ACTIVE PARTICIPANT IN THE DEVELOPMENT OF THE PLAN OF CARE PLAN: 2X/WK X 5WKS FOR TRANSFER TRAINING, GAIT TRAINING, LOWER EXTREMITY STRENGTHENING WITH THE DEVELOPMENT OF A HOME EXERCISE PROGRAM, STANDING BALANCE ACTIVITIES, PATIENT AND CAREGIVER EDUCATION FOR SAFETY AND FALL PREVENTION. THE PATIENT IS RECEIVING HOMECARE DUE TO NEW ONSET/EXACERBATION OF: POST OP WEAKNESS AND INABILITY TO TRANSFER AND AMBULATE SAFELY RECENT HOSPITALIZATION/INPATIENT ADMISSION RELATED TO: PATIENT UNDERWENT A CHOLECYSTECTOMY ON 07/08/22 NEW OR CHANGED MEDICATIONS PERTINENT TO THE PLAN OF CARE: NA PATIENT LIVING SITUATION/CAREGIVER STATUS: RECENT FALLS: INDICATE REASON THAT THE SKILLS OF A THERAPIST ARE REQUIRED TO ACHIEVE THE ESTABLISHED GOALS: ADDITIONAL DISCIPLINES NEEDED OR DECLINED ORDERED SERVICES: ] Goal 2022-08-27 Patient Goal - T O GET STRONGER AND WALK AGAIN Goal Provider Goal - PHYSICAL THERAPY EVALUATION TO BE COMPLETED WITH RECOMMENDATIONS AND/OR WRITTEN TREATMENT PLAN OF CARE ESTABLISHED FOR THE PHYSICIANS SIGNATURE Goal Provider Goal - OCCUPATIONAL THERAPY EVALUATION TO BE COMPLETED WITH RECOMMENDATIONS AND/OR WRITTEN TREATMENT PLAN OF CARE ESTABLISHED FOR THE PHYSICIANS SIGNATURE. Goal Provider Goal - PATIENT/CAREGIVER VERBALIZES UNDERSTANDING OF THE INITIAL BEST PRACTICE RECOMMENDATIONS. PHYSICIAN TO BE NOTIFIED APPROPRIATE FOR ANY CHANGES OR COMPLICATIONS. Goal Provider Goal - PATIENT/CAREGIVER WILL PERFORM THERAPEUTIC EXERCISE/S AND DEMONSTRATE PARTICIPATION IN A HOME PROGRAM TO IMPROVE FUNCTION Goal Provider Goal - PATIENT/CAREGIVER WILL DEMONSTRATE SAFE TRANSFERS USING APPROPRIATE ASSISTIVE DEVICE, BODY MECHANICS AND EQUIPMENT TO IMPROVE FUNCTION Goal Provider Goal - PATIENT/CAREGIVER WILL DEMONSTRATE IMPROVED GAIT TECHNIQUES TO MINIMIZE RISK OF INJURY AND INCREASE FUNCTION Goal Provider Goal - PATIENT/CAREGIVER WILL DEMONSTRATE/VERBALIZE UNDERSTANDING OF RECOMMENDATIONS TO INCREASE SAFETY IN THE HOME AND FALL PREVENTION TO IMPROVE FUNCTION Goal Provider Goal - PATIENT O2 SATURATION LEVEL WILL REMAIN WITHIN PARAMETERS TO IMPROVE FUNCTION Goal Provider Goal - A PLAN OF CARE WILL BE ESTABLISHED THAT MEETS PATIENT'S SKILLED NEEDS AND INCLUDES PATIENT GOAL FOR HOME HEALTH. Reason for Visit INDEPENDENT IN THE HOME Encounters Start Date/Time End Date/Time Encounter Type Admission Type Attending [facility] Care [facility] Care Department Encounter ID Discharge Date Discharge Status Discharge Condition Discharge Reason Percent Goals Met 2022-07-27 00:00:00 2022-08-27 00:00:00 Outpatient ELLEN DOMINGUEZ [facility] [id number] 00:00:00 DISCHARGE TO HOME OR SELF CARE INDEPENDEN T IN THE HOME PER CLIENT REQUEST [id number]
--- OUTSIDE RECORDS SUMMARY | 2024-10-17 11:51 | XMS_ITS | Clinical Summary ---
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 11-07 00:00: 00 [facility] (CURRENT) USE OF ORAL HYPOGLYCEMIC DRUGS Active - 00:00: 00 ENVIRONMENTAL COMPLIANCE ENGINEER (CURRENT) USE OF SYSTEMIC STEROIDS Active - [...] powder for inhalation - 00:00: 00 Yes [id number] Per instruc tions DAILY Per instructio ns DAILY (route: inhalation ) Med Classific ation: Respirato ry Therapy Agents prednisone 10 mg tablet 18 00:00: 00 Yes [id number] 1 tablet DAILY 1 tablet DAILY (route: oral) Med Classific ation: Endocrine alprazolam 1 mg tablet -06 00:00: 00 Yes [id number] FOR ANXIETY Per instruc tions DAILY NEEDED Per instructio ns DAILY NEEDED (route: oral) Med Classific ation: Central Nervous System Agents FeroSul 325 mg (65 mg iron) tablet - 00:00: 00 Yes [id number] Per instruc tions TWICE DAILY Per instructio ns TWICE DAILY (route: oral) Med Classific ation: Electroly te Balance-N utritiona l Products metformin 500 mg tablet - 00:00: 00 Yes [id number] Per instruc tions TWICE DAILY Per instructio ns TWICE DAILY (route: oral) Med Classific ation: Endocrine losartan 25 mg tablet - 00:00: 00 Yes [id number] Per instruc tions DAILY Per instructio ns DAILY (route: oral) Med Classific ation: Cardiovas cular Therapy Agents quetiapine 100 mg tablet 5-14 00:00: 00 Yes [id number] Per instruc tions EVERY DAY AT BEDTIME Per instructio ns EVERY DAY AT BEDTIME (route: oral) Med Classific ation: Central Nervous System Agents escitalopra m 20 mg tablet 5-14 00:00: 00 Yes [id number] Per instruc tions EVERY Per instructio ns [...] THERAPY TREATMENT.] Future Scheduled Test [facility] 07/27/22 PATIENT IS A 76 YEAR OLD [...] End Date/Time Encounter Type Admission Type Attending [facility] Care Department Encounter ID Discharge Date Discharge Status Discharge Condition Discharge Reason Percent Goals Met 2022-07-27 00:00:00 2022-08-27 00:00:00 Outpatient [facility]LLEN DOMINGUEZ [facility] [id number] 00:00:00 DISCHARGE TO HOME OR SELF CARE INDEPENDEN T IN THE HOME PER CLIENT REQUEST [phone]
--- OUTSIDE RECORDS SUMMARY | 2024-10-17 11:51 | XMS_ITS | Clinical Summary ---
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 (CURRENT) USE OF SYSTEMIC STEROIDS Active - [...] powder for inhalation - 00:00: 00 Yes [id number] Per instruc tions DAILY Per instructio ns DAILY (route: inhalation ) Med Classific ation: Respirato ry Therapy Agents prednisone 10 mg tablet 18 00:00: 00 Yes [id number] 1 tablet DAILY 1 tablet DAILY (route: oral) Med Classific ation: Endocrine alprazolam 1 mg tablet -06 00:00: 00 Yes [id number] FOR ANXIETY Per instruc tions DAILY NEEDED Per instructio ns DAILY NEEDED (route: oral) Med Classific ation: Central Nervous System Agents FeroSul 325 mg (65 mg iron) tablet - 00:00: 00 Yes [id number] Per instruc tions TWICE DAILY Per instructio ns TWICE DAILY (route: oral) Med Classific ation: Electroly te Balance-N utritiona l Products metformin 500 mg tablet - 00:00: 00 Yes [id number] Per instruc tions TWICE DAILY Per instructio ns TWICE DAILY (route: oral) Med Classific ation: Endocrine losartan 25 mg tablet - 00:00: 00 Yes [id number] Per instruc tions DAILY Per instructio ns DAILY (route: oral) Med Classific ation: Cardiovas cular Therapy Agents quetiapine 100 mg tablet 5-14 00:00: 00 Yes [id number] Per instruc tions EVERY DAY AT BEDTIME Per instructio ns EVERY DAY AT BEDTIME (route: oral) Med Classific ation: Central Nervous System Agents escitalopra m 20 mg tablet 5-14 00:00: 00 Yes [id number] Per instruc tions EVERY Per instructio ns [...] End Date/Time Encounter Type Admission Type Attending [facility] Care Department Encounter ID Discharge Date Discharge Status Discharge Condition Discharge Reason Percent Goals Met 2022-07-27 00:00:00 2022-08-27 00:00:00 Outpatient ELLEN DOMINGUEZ [facility] [id number] 2057-10-21 00:00:00 DISCHARGE TO HOME OR SELF CARE INDEPENDEN T IN THE HOME PER CLIENT REQUEST 92.86
== END 2024-10-14 00:42 | disposition skilled nursing facility (03) ==
PROVIDERS: Emergency Provider Emergency Medicine
DX: R53.1 Weakness (principal); R00.1 Bradycardia, unspecified; Z03.818 Encounter for observation for suspected exposure to other biological agents ruled out; J96.21 Acute and chronic respiratory failure with hypoxia; Z99.81 Dependence on supplemental oxygen; F17.210 Nicotine dependence, cigarettes, uncomplicated
CPT/HCPCS: 0241U; 36415; 71046; 80053; 81001; 82140; 84484; 85025; 86140; 87086; 96360; 96361; 99284; J7120

== ENCOUNTER 2025-03-31 14:01 | Inpatient (IN) | payer MEDICARE, MEDICAID, SELFPAY ==
[2025-03-31] VITALS (10 sets, daily range): BP systolic 104–133; BP diastolic 40–62; PULSE 66–72; RESP 13–16; TEMP 36.6–36.9; O2SAT 90–94; BMI 36.6
--- NOTE | ~2025-03-31 | CT_ITS ---
CLINICAL HISTORY: Abdominal distention, GI bleed CT abdomen and pelvis with IV contrast. COMPARISON: CT abdomen and pelvis dated 03/31/25 at 18:27 EDT FINDINGS: Minimal atelectasis along the lung bases. Paraesophageal varices present. Mitral annular and aortic annular calcifications. Lobular hepatic contour. Hypoattenuating lesion present within the right lobe of the liver measuring 2.0 cm, indeterminate. Cholecystectomy. Spleen is enlarged measuring up to 13.9 cm. Prominent splenorenal vessels. Normal pancreas. Normal adrenal glands Symmetric renal enhancement. No hydronephrosis. Appendix is not definitively identified. No pericecal or right lower quadrant inflammatory changes. Moderate colonic diverticulosis without evidence of diverticulitis. Uaqxcgsu-rl-uyebg amount of stool present within the distal sigmoid colon/rectum. No surrounding inflammatory changes. No focus of active hemorrhage identified within the bowel lumen. No mesenteric or retroperitoneal lymphadenopathy. Moderate aortoiliac atherosclerotic vascular calcifications. Morales catheter present within the contracted urinary bladder. Lobular uterine contour likely representing a fibroid uterus. No adnexal mass. Chronic appearing compression fracture of the L2 vertebral body with approximately 50 percent height loss, worsened since prior imaging. Additional compression fractures of the L4, L3, L1, T12 and T11 vertebral bodies appear stable since prior imaging. Internal fixation hardware partially visualized within the proximal right femur. Partially visualized left hip prosthesis. No acute fracture identified IMPRESSION: 1. No focus of active hemorrhage identified within the bowel lumen no bowel obstruction. Two nukkncfl-tp-rvvgf amount of stool present within the distal sigmoid colon and rectum. Component of fecal impaction may be present. 2. Cirrhotic hepatic morphology with evidence of portal venous hypertension including splenomegaly and extensive splenorenal and paraesophageal varices. 3. Indeterminate hypoattenuating lesion present within the right lobe of the liver measuring 2.0 cm, stable from prior imaging performed in 2022. This document has been electronically signed by: Vijay Martinez MD on 03/31/2025 19:08:18
--- NOTE | ~2025-03-31 | CT_ITS ---
CLINICAL HISTORY: trauma CT cervical spine without contrast. COMPARISON: None FINDINGS: Normal vertebral body alignment. Vertebral body heights are maintained. No evidence of acute vertebral body injury. Skull base and intracranial structures appear normal. The visualized paravertebral soft tissues appear unremarkable. C2-C3: Anterior marginal osteophytes. Facet joint arthrosis. C3-C4: Anterior marginal osteophytes. Loss of disc space height. Uncovertebral joint hypertrophy. No significant neural foraminal narrowing. C4-C5: Anterior marginal osteophytes. Loss of disc space height. Uncovertebral joint hypertrophy. No significant neural foraminal narrowing. C5-C6: Loss of disc space height. Uncovertebral joint hypertrophy. Mild right neural foraminal narrowing. C6-C7: No significant neuroforaminal narrowing or spinal canal stenosis. IMPRESSION: 1. No evidence of acute injury to the cervical spine. This document has been electronically signed by: Vijay Martinez MD on 03/31/2025 15:39:00
--- NOTE | ~2025-03-31 | XR_ITS ---
CLINICAL HISTORY: pain Four views of the left knee. COMPARISON: None FINDINGS: No suprapatellar joint effusion. Tricompartment osteophytes. Medial joint space narrowing with near [id number] apposition. Visualized portions of the distal femur, patella, and proximal tibia and fibula appear intact. IMPRESSION: 1. No radiographic evidence of acute injury to the left knee. 2. Advanced tricompartment degenerative changes of the left knee most pronounced along the medial compartment where there is near [id number] apposition. This document has been electronically signed by: Vijay Martinez MD on 03/31/2025 15:14:33
--- NOTE | ~2025-03-31 | XR_ITS ---
CLINICAL HISTORY: hypoxia Single view of the chest. COMPARISON: XR chest dated 10/13/24 at 19:39 EST FINDINGS: Low lung volumes. Cardiomegaly, stable. Streaky left basilar opacities. No pleural effusion. No pneumothorax. Mild leftward curvature of the midthoracic spine. No acute fracture. IMPRESSION: 1. Streaky left basilar consolidation may represent atelectasis or pneumonia. 2. Low lung volumes. This document has been electronically signed by: Vijay Martinez MD on 03/31/2025 15:12:53
--- NOTE | ~2025-03-31 | CT_ITS ---
CLINICAL HISTORY: fall, altered mental status CT head without contrast. COMPARISON: None FINDINGS: The visualized paranasal sinuses are clear. Small amount of fluid present at the base of the right mastoid air cells. No calvarial fracture. Atherosclerotic intracranial vasculature. Right globe prosthesis present. No evidence for mass or mass effect. Dystrophic calcification present within the anterior left frontal lobe measuring 0.9 x 0.8 cm, possibly representing sequela of prior trauma or infection. No intracranial hemorrhage or abnormal extra-axial fluid collection. Basal ganglia mineralization present bilaterally. No CT evidence of acute infarct. The ventricles are proportional with the degree of mild global cerebral volume loss without evidence of hydrocephalus. Basilar cisterns are patent. Posterior fossa appears unremarkable. IMPRESSION: 1. No acute intracranial findings. This document has been electronically signed by: Vijay Martinez MD on 03/31/2025 15:42:31
--- NOTE | 2025-03-31 14:26 | ECG_ITS ---
Test Reason : weakness Blood Pressure : */* mmHG Vent. Rate : 70 BPM Atrial Rate : 70 BPM P-R Int : 172 ms QRS Dur : 94 ms QT Int : 428 ms P-R-T Axes : 64 1 39 degrees QTcB Int : 462 ms Normal sinus rhythm Normal ECG When compared with ECG of 05-Oct-2024 16:31, Borderline criteria for Anterior infarct are no longer Present Referred By: Manny Haji Electronically Signed By: Benedict Phillips
--- NOTE | 2025-03-31 14:49 | ED.GENADULT ---
HPI - General Adult General Chief complaint: Fall Stated complaint: LETHARGY Time Seen by Provider: 03/31/25 14:06 Source: patient, RN notes reviewed and old records reviewed Mode of arrival: EMS Limitations: no limitations History of Present Illness ED Provider: Raissa HPI narrative: 79 year old female presents for evaluation of weakness. She has a history of COPD on p.r.n. oxygen at home, alcohol use disorder, chronic back pain, opiate use disorder, chronic kidney disease, seizure disorder, GERD, enucleated right eye. The patient reports feeling weak with increased tremors. She does have tremors at baseline but states that they have been increasing for several months now. She presents from a correction and per correction staff she had 2 falls a few days ago She was not seen after the falls. She did not hit her head or lose consciousness per her report. She is complaining of left knee pain She has no other complaints or concerns with the exception of ?weakness. ? Denies any chest pain, shortness of breath, abdominal pain, nausea vomiting, diarrhea Related Data Home Medications ?Medication ?Instructions ?Recorded ?Confirmed albuterol sulfate 90 mcg/actuation 2 puff inhalation BID 06/28/23 04/01/25 aerosol inhaler (ProAir HFA) alprazolam 0.25 mg tablet (Xanax) 0.25 mg PO BID PRN Anxiety 06/28/23 04/01/25 bisacodyl 10 mg rectal suppository 10 mg NV DAILY PRN Constipation 06/28/23 04/01/25 bisacodyl 5 mg tablet,delayed 5 mg PO BEDTIME 06/28/23 04/01/25 release (Dulcolax (bisacodyl)) cetirizine 10 mg tablet 10 mg PO DAILY 06/28/23 04/01/25 diclofenac sodium 1 % topical gel 4 g topical QID PRN Pain 06/28/23 04/01/25 fluticasone propionate 50 1 spray intranasal BID 06/28/23 04/01/25 mcg/actuation nasal spray,suspension (Flonase Allergy Relief) furosemide 20 mg tablet 40 mg PO BID 06/28/23 04/01/25 gabapentin 300 mg capsule 300 mg PO TID 06/28/23 04/01/25 ipratropium 0.5 mg-albuterol 3 mg 3 ml inhalation Q6H PRN Shortness 06/28/23 04/01/25 (2.5 mg base)/3 mL nebulization Of Breath Or Wheezing soln lactulose 10 gram/15 mL oral 45 ml PO TID 06/28/23 04/01/25 solution levetiracetam 500 mg tablet 500 mg PO BID 06/28/23 04/01/25 (Keppra) magnesium hydroxide 400 mg/5 mL 30 ml PO DAILY PRN Constipation 06/28/23 04/01/25 oral suspension (Milk of Magnesia) methyl salicylate 15 %-menthol 10 1 appl topical DAILY PRN neck pain 06/28/23 04/01/25 % topical cream (Muscle Rub) metoprolol tartrate 25 mg tablet 25 mg PO DAILY 06/28/23 04/01/25 multivitamin 1 tab PO DAILY 06/28/23 04/01/25 nystatin 100,000 unit/gram topical 1 appl topical BID PRN redness 06/28/23 04/01/25 powder oxycodone 5 mg tablet 5 mg PO Q8H PRN Moderate Pain 06/28/23 04/01/25 (Scale Score 5-6) pantoprazole 40 mg tablet,delayed 40 mg PO DAILY@0630 06/28/23 04/01/25 release sodium phosphates 19 gram-7 118 ml NV DAILY PRN Constipation 06/28/23 04/01/25 gram/118 mL enema (Fleet Enema) thiamine HCl (vitamin B1) 100 mg 100 mg PO DAILY 06/28/23 04/01/25 tablet tizanidine 2 mg tablet 2 mg PO Q8H PRN Muscle Spasm 06/28/23 04/01/25 trazodone 50 mg tablet 50 mg PO BEDTIME 06/28/23 04/01/25 cyclosporine 0.05 % eye drops in a 1 drp ophthalmic-Left BID 04/01/25 04/01/25 dropperette (Restasis) escitalopram oxalate 10 mg tablet 10 mg PO DAILY 04/01/25 04/01/25 escitalopram oxalate 5 mg tablet 5 mg PO DAILY 04/01/25 04/01/25 fluticasone fur. 200 mcg-umeclid 1 ea inhalation DAILY 04/01/25 04/01/25 62.5 mcg-vilant 25 mcg inhalat.powder (Trelegy Ellipta) guaifenesin 100 mg/5 mL oral 200 mg PO Q6H PRN Cough 04/01/25 04/01/25 liquid (Camryn-Tussin) hydroxyzine HCl 25 mg tablet 25 mg PO Q8H PRN rash/itching 04/01/25 04/01/25 spironolactone 25 mg tablet 12.5 mg PO DAILY 04/01/25 04/01/25 white petrolatum-mineral oil eye 1 appl ophthalmic (eye) BEDTIME 04/01/25 04/01/25 ointment Previous Rx's ?Medication ?Instructions ?Recorded benzonatate 100 mg capsule 200 mg (2 x 100 mg) PO TID #30 caps 07/01/23 guaifenesin 600 mg tablet, 600 mg PO BID #20 tabs 07/01/23 extended release 12 hr (Mucinex) Allergies Allergy/AdvReac Type Severity Reaction Status Date / Time acetaminophen [From Tylenol] Allergy Unknown Verified 03/31/25 14:16 Review of Systems Constitutional: Constitutional: Denies body ache(s), Reports frequent falls and Reports weakness Eyes: Eyes: Denies blurry vision and Denies itchy eyes ENT: Denies vertigo and Denies dizziness Cardiovascular: Cardiovascular: Denies chest pain, Denies chest pain at rest and Denies dyspnea Respiratory: Respiratory: Denies cough and Denies dyspnea Gastrointestinal: Gastrointestinal: Denies abdominal pain, Denies melena, Denies hematochezia, Denies nausea and Denies vomiting Genitourinary: Genitourinary: Denies abnormal vaginal bleeding Musculoskeletal: Musculoskeletal: Denies back pain Integumentary/Breasts: Skin/Breast: Denies rash Neurologic: Denies vertigo, Denies dizziness, Reports frequent falls and Reports weakness Allergic/Immunologic: Allergic/Immunologic: Denies itchy eyes PMFSH Past Medical History Medical History (Updated 04/01/25 @ 09:53 by Rosa Russell MD) Cirrhosis FH: cholecystectomy Hepatitis C Splenomegaly Type 2 diabetes mellitus Morbid obesity CHF (congestive heart failure) Surgical History H/O enucleation of right eyeball Hx of appendectomy History of hip replacement Social History Social History Household Members: None Housing: [facility] Do you presently have visiting nurse or other home services: Yes Alcohol intake: former Patient Tobacco Use Status: Former Tobacco user Tobacco use type: Cigarette Cigarette Packs Per Day: 1 Cigarettes Per Day: 20.0 Years Smoked: 30 Second Hand Smoke Exposure: No Advance Directives Date on File: 08/29/23 service: No Physical Exam ED Vital Signs: Vital Signs - 24 hr 03/31/25 14:11 03/31/25 15:55 03/31/25 17:24 Temperature 97.9 F 98.4 F 97.8 F Pulse Rate 71 71 70 Respiratory Rate 13 16 15 Blood Pressure 106/48 L 133/62 118/47 L Pulse Oximetry 93 90 L Oxygen Delivery Method Room Air Room Air Oxygen Flow Rate 1 03/31/25 17:42 03/31/25 18:59 Temperature 98 F 98.4 F Pulse Rate 69 71 Respiratory Rate 14 16 Blood Pressure 111/40 L 111/55 L Pulse Oximetry 92 Oxygen Delivery Method Room Air Oxygen Flow Rate BMI result Body Mass Index 36.6 Const General: healthy appearing, comfortable, no acute distress, alert and awake Nutritional Appearance: well nourished Orientation/consciousness: patient oriented x3 HENMT Head: Yes normocephalic and Yes atraumatic Eyes Other: enucleted right eye Eyelids: Yes eyelids normal Conjunctivae: conjunctivae normal Sclerae: sclerae normal Corneas: corneas normal Pupils: Equal, round and reactive pupils present EOM: EOMs intact bilaterally Neck Neck: Yes full ROM Resp Effort & Inspection: normal respiratory effort, able to speak in complete sentences and not labored Cardio Rate: regular rate Rhythm: regular rhythm GI Inspection: Yes distended Palpation (GI): Soft to palpation, not firm, nontender and no guarding Auscultation: normoactive bowel sounds Skin General skin exam: elasticity normal Neuro General: patient oriented x3 Cranial nerves: Yes Equal, round and reactive pupils present and Yes Bilaterally intact EOM present Cognition (Neuro): normal cognition Extrem Other: Moving all extremities well without any obvious deformities Course Reevaluation(s) Reevaluation #1: Patient's guaiac was positive Time: 16:19 Reevaluation #2: CT scan shows cirrhotic liver which likely explains her thrombocytopenia. No evidence of active GI hemorrhage or obvious mass. She does have some stool impaction. Time: 19:16 Medications Administered Generic Name Dose Route Start Last Admin Trade Name Lidia PRN Reason Stop Dose Admin Albuterol Sulfate 2 puff 04/01/25 21:00 04/02/25 08:50 Albuterol Sulfate 90 Mcg 8 Gm Inhaler INHALE Not Given BID SCOUT Albuterol/Ipratropium 3 ml 03/31/25 22:29 04/02/25 08:35 Albuterol/Iprat 2.5/0.5mg 3 Ml Ampul.Neb INHALE 3 ml RQ4H WHILE AWAKE PRN Administration Shortness of Breath/Wheezing Alprazolam 0.25 mg 04/01/25 09:08 04/02/25 09:06 Alprazolam 0.25 Mg Tablet PO 0.25 mg BID PRN Administration Anxiety Benzonatate 200 mg 04/01/25 15:00 04/02/25 09:07 Benzonatate 100 Mg Capsule PO 200 mg TID SCOUT Administration Bisacodyl 5 mg 04/01/25 21:00 04/01/25 19:58 Bisacodyl 5 Mg Tablet.Dr PO 5 mg BEDTIME SCOUT Administration Ceftriaxone Sodium 1 gm 04/01/25 18:00 04/01/25 17:11 Ceftriaxone Sodium 1 Gm Vial IVPUSH 1 gm Q24H SCOUT Administration Escitalopram Oxalate 5 mg 04/02/25 09:00 04/02/25 09:07 Escitalopram Oxalate 5 Mg Tablet PO 5 mg DAILY SCOUT Administration Escitalopram Oxalate 10 mg 04/02/25 09:00 04/02/25 09:07 Escitalopram Oxalate 10 Mg Tablet PO 10 mg DAILY SCOUT Administration Fluticasone Propionate 1 spray 04/01/25 21:00 04/01/25 22:03 Fluticasone Propionate Nasal 16 Gm [place] NOSTRIL-B Not Given BID SCOUT Fluticasone/Umeclidinium/Vilanterol 1 puff 04/02/25 08:00 04/02/25 08:37 Fluticasone/Umeclidinium/Vilanterol 200/62.5/25 Blst.W.Dev INHALE Not Given RDAILY SCOUT Furosemide 40 mg 04/01/25 21:00 04/02/25 09:07 Furosemide 40 Mg Tablet PO 40 mg BID SCOUT Administration Protocol Gabapentin 300 mg 04/01/25 15:00 04/02/25 09:06 Gabapentin 300 Mg Capsule PO 300 mg TID SCOUT Administration Guaifenesin 600 mg 04/01/25 21:00 04/02/25 09:07 Guaifenesin [place] 600 Mg Tab.Er.12h PO 600 mg BID SCOUT Administration Octreotide Acetate 500 mcg/ 501 mls @ 50.1 mls/hr 03/31/25 21:45 04/02/25 04:41 Sodium Chloride IVCONT 50 mcg/hr .Q10H SCOUT 50.1 mls/hr Administration 50 MCG/HR Lactulose 30 gm 04/01/25 15:00 04/02/25 09:08 Lactulose 20 Gm/30 Ml Solution PO 30 gm TID SCOUT Administration Levetiracetam 500 mg 04/01/25 21:00 04/02/25 09:06 Levetiracetam 500 Mg Tablet PO 500 mg BID SCOUT Administration Loratadine 10 mg 04/02/25 09:00 04/02/25 09:08 Loratadine 10 Mg Tablet PO 10 mg DAILY SCOUT Administration Metoprolol Tartrate 25 mg 04/02/25 09:00 04/02/25 09:06 Metoprolol Tartrate 25 Mg Tablet PO 25 mg DAILY SCOUT Administration Protocol Morphine Sulfate 1 mg 04/01/25 02:18 04/02/25 09:05 Morphine Sulfate 2 Mg/Ml Cartridge IVPUSH 1 mg Q3H PRN Administration Pain, Severe (Pain Scale 7-10) Protocol Multivitamins/Vitamin C 1 tab 04/02/25 09:00 04/02/25 09:07 Multivitamin Tablet PO 1 tab DAILY SCOUT Administration Pantoprazole Sodium 40 mg 04/01/25 06:30 04/02/25 05:42 Pantoprazole Sodium 40 Mg/10 Ml Vial IVPUSH 40 mg BID@0630,1630 SCOUT Administration Sodium Chloride 3 ml 04/01/25 00:00 04/02/25 09:05 0.9 % Sodium Chloride Flush 3 Ml Syringe IVFLUSH 3 ml QSHIFT SCOUT Administration Spironolactone 12.5 mg 04/02/25 09:00 04/02/25 09:06 Spironolactone 25 Mg Tablet PO 12.5 mg DAILY SCOUT Administration Protocol Thiamine HCl 100 mg 04/02/25 09:00 04/02/25 09:07 Thiamine Hcl 100 Mg Tablet PO 100 mg DAILY SCOUT Administration Trazodone HCl 50 mg 04/01/25 21:00 04/01/25 19:58 Trazodone Hcl 50 Mg Tablet PO 50 mg BEDTIME SCOUT Administration Discontinued Medications Generic Name Dose Route Start Last Admin Trade Name Lidia PRN Reason Stop Dose Admin Ceftriaxone Sodium 1 gm 03/31/25 18:22 03/31/25 18:49 Ceftriaxone Sodium 1 Gm Vial IVPUSH 03/31/25 18:23 1 gm ONCE ONE Administration Sodium Chloride 1,000 mls @ 999 mls/hr 03/31/25 15:00 03/31/25 16:08 Ns IV 03/31/25 16:00 Infused .Q1H1M SCOUT Infusion Iohexol 85 ml 03/31/25 18:47 03/31/25 18:47 Iohexol 350 Mg/Ml 100 Ml Infus..Btl IV 03/31/25 18:48 85 ml ONCE ONE Administration Octreotide Acetate 50 mcg 03/31/25 21:31 03/31/25 22:01 Octreotide Acetate 100 Mcg/Ml Ampul IVPUSH 03/31/25 21:32 50 mcg ONCE ONE Administration Pantoprazole Sodium 40 mg 03/31/25 16:48 03/31/25 17:11 Pantoprazole Sodium 40 Mg/10 Ml Vial IVPUSH 03/31/25 16:49 40 mg ONCE ONE Administration Medical Decision Making Medical Decision Making MDM Narrative: 79-year-old female with a past medical history as above presents for evaluation of weakness. She had 2 recent falls at a correction over last few days, none today. She is awake, alert and oriented, complains of left knee pain. She denies any abdominal pain nausea vomiting but is distended on exam, she is guaiac positive on exam with light brown stool, no melena. She is hemodynamically stable. Hemoglobin of 6.7 which is down from a baseline of around 8 or 9. Given that she is guaiac positive, I ordered a transfusion of 1 unit of packed red blood cells, discussed with GI who agrees with plan but does recommend CT imaging given the abdominal distention. I did not order octreotide for variceal bleed despite the patient having known varices as the patient has no upper abdominal pain, nausea vomiting. This is not likely to be a variceal bleed and this is agreed of holding octreotide by Dr. Russell Differential Diagnosis Differential Diagnoses: The differential diagnosis associated with the presentation includes GI bleed Symptomatic anemia Weakness Esophageal varices Thrombocytopenia Admission/Observation Consideration of admission/observation: Escalation of care including admission/observation considered Consult Healthcare Provider Management of the patient was discussed with: Hospitalist (Dr Ellis will admit the patient) and Drum Straightener Discussed with Dr Russell who recommends imaging but agrees with pantoprazole, transfusion and admission Lab Data MDM Lab Attestation statement: I reviewed the patient's lab results. Pancytopenia with a hemoglobin of 6.7 down from baseline of 8 or 9[place] [address] which is actually [id number] [phone] above her baseline. Possibly due to cirrhotic liver from previous alcohol abuse. Chemistries significant for a CO2 of 37 which is likely related to her history of COPD. BUN was 35 with a normal creatinine of 1.38 04/01/25 04:52 04/01/25 04:52 Labs: Lab Results 03/31/25 03/31/25 03/31/25 Range/Units 15:13 15:27 16:06 WBC 4.0 L (4.8-10.8) X10*3/uL RBC 3.32 L (4.20-5.50) X10*6/uL Hgb 6.7 L* D (12.0-16.0) g/dl Hct 24.3 L (37.0-47.0) % MCV 73.2 L (80.0-98.0) fL MCH 20.2 L (27.0-33.0) pg MCHC 27.6 L (31.0-35.0) g/dl RDW 18.2 H (11.0-16.0) % Plt Count 79 L D (160-400) X10*3/uL MPV 10.8 (9.4-12.3) fL Immature Gran % (Auto) 0.5 H (0.0-0.4) % Neut % (Auto) 64.1 (45-73) % Lymph % (Auto) 17.3 L (20-40) % [place] % (Auto) 17.8 H (2-11) % Eos % (Auto) 0.0 (0-4) % Baso % (Auto) 0.3 (0-2) % Lymph # (Auto) 0.7 L (1.2-4.9) X10*3/uL [place] # (Auto) 0.7 (0.1-1.2) X10*3/uL Eos # (Auto) 0.0 (0.0-0.4) X10*3/uL Baso # (Auto) 0.0 (0.0-0.2) X10*3/uL Abs Immat Gran (auto) 0.02 (0.00-0.03) X10*3/uL Absolute Neuts (auto) 2.6 (2.0-8.3) x10*3/uL Absolute Nucleated RBC 0.000 (0.0-0.012) X10*3/uL Nucleated RBC % (auto) 0.0 (0.0-0.2) /100WBC PT (10.9-12.4) SEC INR (0.9-1.1) VBG pH 7.45 H (7.32-7.43) VBG pCO2 65 mmHg VBG pO2 55 mmHg VBG HCO3 45 H (22-26) mmol/L VBG O2 Saturation TNP VBG Base Excess 19.5 mmol/L Sodium 145 (135-145) mmol/L Potassium 3.7 (3.3-5.1) mmol/L Chloride 101 (96-108) mmol/L Carbon Dioxide 37 H (22-29) mmol/L Anion Gap 11 L (12-20) BUN 35 H (9-16) mg/dL Creatinine 1.38 (0.5-1.4) mg/dL Estim Creat Clear Calc 35.2 Estimated GFR 37 Random Glucose 129 H (60-115) mg/dL Calcium 9.2 (8.4-10.2) mg/dL Magnesium 2.1 (1.6-2.6) mg/dL Total Bilirubin 1.2 H (0.0-1.0) mg/dL AST 33 H (5-31) U/L ALT < 6 (0-31) U/L Alkaline Phosphatase 59 (39-117) U/L Total Creatine Kinase 12 L (26-140) U/L Troponin I High Sens 8.0 (<3.5-17.0) ng/L Total Protein 6.5 (6.5-8.0) g/dL Albumin 3.4 L (3.5-5.0) g/dL Lipase 15 (8-78) U/L Urine Color Urine Appearance Urine pH (5.0-9.0) Ur Specific [place] (1.005-1.025) Urine Protein (Neg-Trace) mg/dL Urine Glucose (UA) (Negative) mg/dL Urine Ketones (Negative) mg/dL Urine Blood (Negative) Urine Nitrite (Negative) Ur Leukocyte Esterase (Negative) Urine RBC (0-2) /HPF Urine WBC (0-5) /HPF Ur Squamous Epith Cells (0-2) /HPF Urine Bacteria (None Seen) Hyaline Casts (0-2) /LPF Stool Occult Blood POSITIVE (NEGATIVE) Ethyl Alcohol < 10 mg/dL Influenza Type A (PCR) NEGATIVE (Negative) Influenza Type B (PCR) NEGATIVE (Negative) RSV RNA Qual (PCR) NEGATIVE (Negative) SARS-CoV-2 RNA (RT-PCR) NEGATIVE (Negative) Blood Type A Positive Antibody Screen NEGATIVE Crossmatch See Detail 03/31/25 03/31/25 Range/Units 16:30 19:12 WBC (4.8-10.8) X10*3/uL RBC (4.20-5.50) X10*6/uL Hgb (12.0-16.0) g/dl Hct (37.0-47.0) % MCV (80.0-98.0) fL MCH (27.0-33.0) pg MCHC (31.0-35.0) g/dl RDW (11.0-16.0) % Plt Count (160-400) X10*3/uL MPV (9.4-12.3) fL Immature Gran % (Auto) (0.0-0.4) % Neut % (Auto) (45-73) % Lymph % (Auto) (20-40) % [place] % (Auto) (2-11) % Eos % (Auto) (0-4) % Baso % (Auto) (0-2) % Lymph # (Auto) (1.2-4.9) X10*3/uL [place] # (Auto) (0.1-1.2) X10*3/uL Eos # (Auto) (0.0-0.4) X10*3/uL Baso # (Auto) (0.0-0.2) X10*3/uL Abs Immat Gran (auto) (0.00-0.03) X10*3/uL Absolute Neuts (auto) (2.0-8.3) x10*3/uL Absolute Nucleated RBC (0.0-0.012) X10*3/uL Nucleated RBC % (auto) (0.0-0.2) /100WBC PT 14.7 H (10.9-12.4) SEC INR 1.3 H (0.9-1.1) VBG pH (7.32-7.43) VBG pCO2 mmHg VBG pO2 mmHg VBG HCO3 (22-26) mmol/L VBG O2 Saturation VBG Base Excess mmol/L Sodium (135-145) mmol/L Potassium (3.3-5.1) mmol/L Chloride (96-108) mmol/L Carbon Dioxide (22-29) mmol/L Anion Gap (12-20) BUN (9-16) mg/dL Creatinine (0.5-1.4) mg/dL Estim Creat Clear Calc Estimated GFR Random Glucose (60-115) mg/dL Calcium (8.4-10.2) mg/dL Magnesium (1.6-2.6) mg/dL Total Bilirubin (0.0-1.0) mg/dL AST (5-31) U/L ALT (0-31) U/L Alkaline Phosphatase (39-117) U/L Total Creatine Kinase (26-140) U/L Troponin I High Sens (<3.5-17.0) ng/L Total Protein (6.5-8.0) g/dL Albumin (3.5-5.0) g/dL Lipase (8-78) U/L Urine Color Yellow Urine Appearance Clear Urine pH 7.0 (5.0-9.0) Ur Specific [place] 1.010 (1.005-1.025) Urine Protein Negative (Neg-Trace) mg/dL Urine Glucose (UA) Negative (Negative) mg/dL Urine Ketones Negative (Negative) mg/dL Urine Blood Trace H (Negative) Urine Nitrite Negative (Negative) Ur Leukocyte Esterase Large (3+) H (Negative) Urine RBC 6-10 H (0-2) /HPF Urine WBC >50 H (0-5) /HPF Ur Squamous Epith Cells 0-2 (0-2) /HPF Urine Bacteria 4+ (None Seen) Hyaline Casts 3-5 (0-2) /LPF Stool Occult Blood (NEGATIVE) Ethyl Alcohol mg/dL Influenza Type A (PCR) (Negative) Influenza Type B (PCR) (Negative) RSV RNA Qual (PCR) (Negative) SARS-CoV-2 RNA (RT-PCR) (Negative) Blood Type Antibody Screen Crossmatch Radiology Impression Discussion of test interpretation with radiology: I have reviewed the radiologist's reading. Radiologist Impression: IMPRESSION: 1. No focus of active hemorrhage identified within the bowel lumen no bowel obstruction. Two [id number] amount of stool present within the distal sigmoid colon and rectum. Component of fecal impaction may be present. 2. Cirrhotic hepatic morphology with evidence of portal venous hypertension including splenomegaly and extensive splenorenal and paraesophageal varices. 3. Indeterminate hypoattenuating lesion present within the right lobe of the liver measuring 2.0 cm, stable from prior imaging performed in 2022. This document has been electronically signed by: Vijay Martinez MD on 03/31/2025 19:08:18 Attestation Attending Attestation: I was personally present and available for consultation in the ED and independently examined this patient and performed the components of the E&M independently. I have reviewed everything on the chart that is available and agree with the documentation provided by the ANANT including discussion about the assessment, treatment plan and discussion. Based on medical record the care appears appropriate. Patient has a drop in hemoglobin though the last check was over 6 months ago. She does have mild thrombocytopenia but this is chronic. She has no active rapid hemorrhage or bright red blood per rectum. Abdomen is soft she may have a ventral hernia that is easily reducible she does not have tenderness or guarding and she denied to me any abdominal pain at all. Guaiac-positive brown stool. Hemodynamics stable. I agree with ANANT regarding transfusion, GI consultation and disposition accordingly. This time do not think she needs advanced imaging of the abdomen. Jack Mccurdy MD [facility] Emergency Medicine Discharge Plan Discharge Clinical Impression: Symptomatic anemia, GI (gastrointestinal bleed) Patient Disposition: Admitted As Inpatient Interventions: Admission Worksheet (ED) Last Done: 04/01/25 06:28 Discharge Date/Time: 04/01/25 07:42
[2025-03-31] MEDS: 0.9 % Sodium Chloride 1,000 ML 999 ML IV (15:07)
[2025-03-31 15:20] LABS: MANUAL DIFF FLAG NO
[2025-03-31 15:24] LABS: Basophils Percent Auto 0.3 % (0-2); Hematocrit 24.3 % (37.0-47.0); Imm Gran Abs Auto 0.02 X10*3/uL (0.00-0.03); Imm Gran Pct Auto 0.5 % (0.0-0.4); Lymphocytes Absolute Auto 0.7 X10*3/uL (1.2-4.9); Lymphocytes Percent Auto 17.3 % (20-40); Mean Corpuscular HGB Conc 27.6 g/dl (31.0-35.0); Mean Corpuscular Hemoglobin 20.2 pg (27.0-33.0); Mean Corpuscular Volume 73.2 fL (80.0-98.0); Mean Platelet Volume 10.8 fL (9.4-12.3); Monocytes Absolute Auto 0.7 X10*3/uL (0.1-1.2); Monocytes Percent Auto 17.8 % (2-11); Neutrophils Absolute Auto 2.6 x10*3/uL (2.0-8.3); Neutrophils Percent Auto 64.1 % (45-73); Red Blood Count 3.32 X10*6/uL (4.20-5.50); Red Cell Distribution Width 18.2 % (11.0-16.0)
[2025-03-31 15:25] LABS: Platelet Count 79 X10*3/uL (160-400)
[2025-03-31 15:29] LABS: Hemoglobin 6.7 g/dl (12.0-16.0)
[2025-03-31 15:31] LABS: VBG Base Excess 19.5 mmol/L; VBG HCO3 45 mmol/L (22-26); VBG pCO2 65 mmHg; VBG pH 7.45 (7.32-7.43); VBG pO2 55 mmHg
[2025-03-31 15:32] LABS: Venous Blood Gas Refer to POC result
[2025-03-31 15:48] LABS: Alanine Aminotransferase < 6 U/L (0-31); Albumin Level 3.4 g/dL (3.5-5.0); Anion Gap 11 (12-20); Aspartate Amino Transferase 33 U/L (5-31); Bilirubin Total 1.2 mg/dL (0.0-1.0); Blood Urea Nitrogen 35 mg/dL (9-16); Calcium 9.2 mg/dL (8.4-10.2); Carbon Dioxide 37 mmol/L (22-29); Chloride 101 mmol/L (96-108); Creatinine Clr Calc Pharmacy 35.2; Estimated Glomerular Filt Rate 37; Ethanol < 10 mg/dL; Glucose Random 129 mg/dL (60-115); Lipase 15 U/L (8-78); Magnesium 2.1 mg/dL (1.6-2.6); Potassium 3.7 mmol/L (3.3-5.1); Sodium 145 mmol/L (135-145); Total Protein 6.5 g/dL (6.5-8.0)
[2025-03-31 16:01] LABS: Alkaline Phosphatase 59 U/L (39-117)
--- NOTE | 2025-03-31 16:12 | MHC.EDTECH ---
This pct assumed care of Patient at 1500 ,,vitals taken ,type and screen drawn ,stool card collected all sent to lab ,Patient was incontinent of urine care given ,and bedding change ,Call laureano within Pt reach .
[2025-03-31 16:14] LABS: OBS Int Ctl Valid YES; OBS1 POSITIVE (NEGATIVE)
[2025-03-31 16:44] LABS: Appearance Urine Clear; Color Urine Yellow; Glucose Urine UA Negative (Negative); Leukocyte Esterase Urine Large (3+) (Negative); Nitrite Urine Negative (Negative); UMIC TRIGGER UACC YES; Urine Blood Trace (Negative); Urine Ketones Negative (Negative); Urine Protein Negative (Neg-Trace)
[2025-03-31] MEDS: Pantoprazole Sodium 40 MG/10 ML VIAL IVPUSH (17:11)
[2025-03-31 17:12] LABS: Bacteria Urine 4+ (None Seen); Squamous Epithelial Cell Urine 0-2 /HPF (0-2); UACC Culture Trigger YES; WBC Urine >50 /HPF (0-5)
[2025-03-31 17:35] LABS: Influenza A PCR NEGATIVE (Negative); Influenza B PCR NEGATIVE (Negative); Resp Syncy Virus RNA Qual PCR NEGATIVE (Negative); SARS COV2 PCR INHOUSE NEGATIVE (Negative)
[2025-03-31] MEDS: iohexoL 350 MG/ML 100 ML INFUS..BTL 85 ML IV (18:47)
[2025-03-31] MEDS: cefTRIAXone sodium 1 GM VIAL IVPUSH (18:49)
[2025-03-31 19:26] LABS: INTERNATIONAL NORM RATIO 1.3 (0.9-1.1); Prothrombin Time 14.7 SEC (10.9-12.4)
--- NOTE | 2025-03-31 21:41 | P.HPHOSP_ITS ---
History of Present Illness Date of Service: 03/31/25 Attending physician on admission: Janette Ellis Chief Complaint: weakness, fall Patient is a 79-year-old female currently residing in a [place] [facility] for the last 2 years with past medical history depression/anxiety, hepatitis-C and patient completed treatment, cirrhosis, GERD, COPD secondary to history of tobacco use, chronic low back pain, bilateral hip replacements, and mobility dependent on wheelchair, constipation, history of alcohol dependence, seizure disorder on Keppra, enucleated right eye was brought in by ambulance from [place] [facility] after 2 unwitnessed falls a few days ago. Patient states she attempted to get out of bed on her own when she knew she should as she has been unable to walk since her 2nd hip replacement 1 year prior. Patient denied any hit to the head or loss of consciousness. Patient denies any syncopal or near syncopal episodes. Patient does not have diabetes and is not having issues with low blood sugar. Patient did state she has not eaten for the last 4 days due to poor appetite. CT of the head negative for any acute findings. CT of the cervical spine negative for any acute injury. No acute injury to bilateral knees with evidence of [id number] apposition. Incidentally patient's H&H was 6.7 and 24.3. Stool positive for occult blood. CT of the abdomen noted fecal impaction, cirrhotic hepatic morphology with portal vein hypertension including splenomegaly and extensive splenorenal and paraesophageal varices. Also noted was a hypoattenuating lesion present within the right lobe of the liver measuring 2 cm stable from prior imaging back in 2022. As stated above patient does have history of hepatitis-C and received treatment. Since living in the [place] [facility] patient has had no access to alcohol. Patient currently denying any chest pain, shortness of breath at rest, abdominal pain, nausea or vomiting. Patient updated on plan of care and explanation for admission. Records indicate patient is a full code via [facility] from [place] [facility]. Review of Systems 2 Review of Systems: Patient currently experiencing chronic low back pain. Patient denies any abdominal pain, nausea or vomiting. Patient states she has not eaten for the last 4 days due to low appetite. ON LICENSE OF [facility] Medical History (Updated 03/31/25 @ 22:20 by ANETTE Prince) FH: cholecystectomy Hepatitis C Splenomegaly Cirrhosis Type 2 diabetes mellitus Morbid obesity CHF (congestive heart failure) Cognitive capacity: Alert and orientated x3 Functional capacity: wheelchair bound (Patient states she is no longer able to walk after her 2nd hip repair) Patient : No Surgical History (Updated 03/31/25 @ 22:20 by RHIANNA Prince) H/O enucleation of right eyeball Hx of appendectomy History of hip replacement Social History Household Members: None Housing: [facility] Do you presently have visiting nurse or other home services: No Alcohol intake: former Patient Tobacco Use Status: Current everyday Tobacco user Tobacco use type: Cigarette Cigarettes Per Day: 10 Years Smoked: 40 Smoked in Last 30 Days: No Use of substances other than those prescribed or required for medical reasons: No Advance Directives: Yes Advance Directives on File: Yes Advance Directives Date on File: 08/29/23 service: No Ebola Risk: Travel/Contact With Anyone From Affected Area/s: No Has Patient Experienced Ebola Symptoms: No Meds Allergies Allergy/AdvReac Type Severity Reaction Status Date / Time acetaminophen [From Tylenol] Allergy Unknown Verified 03/31/25 14:16 Active Medications: Current Medications Acetaminophen (Acetaminophen 325 Mg Tablet) 650 mg PO Q6H PRN PRN Reason: Pain, Mild 1-3,fever,headache Calcium Carbonate (Calcium Carbonate 750 Mg Tab.Chew) 750 mg PO Q4H PRN PRN Reason: Heartburn Ceftriaxone Sodium (Ceftriaxone Sodium 1 Gm Vial) 1 gm IVPUSH Q24H SCOUT Octreotide Acetate 500 mcg/ (Sodium Chloride) 501 mls @ 50.1 mls/hr IVCONT .Q10H SCOUT Magnesium Hydroxide (Milk Of Magnesia 30 Ml Oral.Susp) 30 ml PO DAILY PRN PRN Reason: Constipation Melatonin (Melatonin 3 Mg Tablet) 6 mg PO BEDTIME PRN PRN Reason: Insomnia Ondansetron HCl (Ondansetron Hcl 4 Mg/2 Ml Vial) 4 mg IVPUSH Q8H PRN PRN Reason: Nausea and Vomiting Pantoprazole Sodium (Pantoprazole Sodium 40 Mg/10 Ml Vial) 40 mg IVPUSH BID@0630,1630 [facility] Sodium Chloride (0.9 % Sodium Chloride Flush 3 Ml Syringe) 3 ml IVFLUSH QSHIFT [facility] Home Medications ?Medication ?Instructions ?Recorded ?Confirmed ?Last Taken ?Type acamprosate 333 mg tablet,delayed 333 mg PO TID 06/28/23 08/28/23 Unknown History release albuterol sulfate 90 mcg/actuation 2 puff inhalation BID 06/28/23 08/28/23 Unknown History aerosol inhaler (ProAir HFA) alprazolam 0.25 mg tablet (Xanax) 0.25 mg PO BID PRN Anxiety 06/28/23 08/28/23 Unknown History bisacodyl 10 mg rectal suppository [address] DAILY PRN Constipation 06/28/23 08/28/23 Unknown History bisacodyl 5 mg tablet,delayed 30 mg PO BEDTIME 06/28/23 08/28/23 Unknown History release (Dulcolax (bisacodyl)) cetirizine 10 mg tablet 10 mg PO DAILY 06/28/23 08/28/23 Unknown History dextran 70-hypromellose eye drops 1 drp ophthalmic (eye) TID 06/28/23 08/28/23 Unknown History in a dropperette (Artificial Tears (PF) drops in a dropperette) diclofenac sodium 1 % topical gel 4 g topical QID PRN Pain 06/28/23 08/28/23 Unknown History escitalopram oxalate 20 mg tablet 20 mg PO DAILY 06/28/23 08/28/23 Unknown History fluticasone fur. 200 mcg-umeclid 1 inh inhalation DAILY 06/28/23 08/28/23 Unknown History 62.5 mcg-vilant 25 mcg inhalat.powder (Trelegy Ellipta) fluticasone propionate 50 1 spray intranasal BID 06/28/23 08/28/23 Unknown History mcg/actuation nasal spray,suspension (Flonase Allergy Relief) folic acid 1 mg tablet 1 mg PO DAILY 06/28/23 08/28/23 Unknown History furosemide 20 mg tablet 60 mg PO DAILY 06/28/23 08/28/23 Unknown History gabapentin 300 mg capsule 300 mg PO TID 06/28/23 08/28/23 Unknown History ipratropium 0.5 mg-albuterol 3 mg 3 ml inhalation Q8H PRN Shortness 06/28/23 08/28/23 Unknown History (2.5 mg base)/3 mL nebulization Of Breath Or Wheezing soln lactulose 10 gram/15 mL oral 30 ml PO Q2D@0900,1500,2100 06/28/23 08/28/23 06/26/23 History solution levetiracetam 500 mg tablet 500 mg PO BID 06/28/23 08/28/23 Unknown History (Keppra) lidocaine 5 % topical patch 1 patch topical DAILY 06/28/23 08/28/23 Unknown History magnesium hydroxide 400 mg/5 mL 30 ml PO DAILY PRN Constipation 06/28/23 08/28/23 Unknown History oral suspension (Milk of Magnesia) methyl salicylate 15 %-menthol 10 1 appl topical DAILY PRN neck pain 06/28/23 08/28/23 Unknown History % topical cream (Muscle Rub) metoprolol tartrate 25 mg tablet 25 mg PO DAILY 06/28/23 08/28/23 Unknown History multivitamin 1 tab PO DAILY 06/28/23 08/28/23 Unknown History naloxone 4 mg/actuation nasal 4 mg intranasal Q3M PRN Opioid 06/28/23 08/28/23 Unknown History spray (Narcan) Overdose nystatin 100,000 unit/gram topical 1 appl topical BID 06/28/23 08/28/23 Unknown History powder oxycodone 5 mg tablet 5 mg PO Q4H PRN Moderate Pain 06/28/23 08/28/23 Unknown History (Scale Score 5-6) pantoprazole 40 mg tablet,delayed 40 mg PO DAILY@0630 06/28/23 08/28/23 Unknown History release sodium phosphates 19 gram-[address] DAILY PRN Constipation 06/28/23 08/28/23 Unknown History gram/118 mL enema (Fleet Enema) thiamine HCl (vitamin B1) 100 mg 100 mg PO DAILY 06/28/23 08/28/23 Unknown History tablet tizanidine 2 mg tablet 2 mg PO Q8H PRN Muscle Spasm 06/28/23 08/28/23 Unknown History trazodone 50 mg tablet 50 mg PO BEDTIME 06/28/23 08/28/23 Unknown History ipratropium 0.5 mg-albuterol 3 mg 3 ml inhalation Q8H 08/29/23 08/29/23 Unknown History (2.5 mg base)/3 mL nebulization soln Physical Exam 2 Vital Signs and Narrative: Vital Signs: Last Vital Signs Temp 98.4 F 03/31/25 21:27 Pulse 70 03/31/25 21:27 Resp 15 03/31/25 21:27 BP 119/57 L 03/31/25 21:27 Pulse Ox 92 03/31/25 21:27 O2 Del Method Room Air 03/31/25 21: O2 Flow Rate 1 03/31/25 15:55 BMI result Body Mass Index 36.6 Alert and orientated X3, able to give good history. Neuro: CN II-X11 intact EYES: PERRLA L eye , R eye enucleated, sclera nonicteric ENT: hearing fair, no issues with swallowing, uvula midline, lips moist, nares patent no epistaxis, upper front teeth missing Cardiac: S1 S2 RRR, systolic III/ murmur, no JVD, no edema in Lower ext Pulmonary: lungs clear to auscultation B Abdominal: BS active in all 4 quadrants, no guarding, tenderness, rebounding, hepatomegaly present, abdomen distended MSK: strength 4/5 upper and lower extremities : no CVA tenderness no bladder distension Extremities: no edema in lower extremities, PT and DP pulses palpable +2 Psych: mood stable, judgement and insight fair skin: intact, no open wounds found or reported Results Labs 03/31/25 15:13 03/31/25 15:13 Labs: Laboratory Results - last 24 hr 03/31/25 03/31/25 03/31/25 15:13 15:27 16:06 MCV 73.2 L MCH 20.2 L MCHC 27.6 L RDW 18.2 H Plt Count 79 L D MPV 10.8 Immature Gran % (Auto) 0.5 H Neut % (Auto) 64.1 Lymph % (Auto) 17.3 L Angelina % (Auto) 17.8 H Eos % (Auto) 0.0 Baso % (Auto) 0.3 Lymph # (Auto) 0.7 L Angelina # (Auto) 0.7 Eos # (Auto) 0.0 Baso # (Auto) 0.0 Abs Immat Gran (auto) 0.02 Absolute Neuts (auto) 2.6 Absolute Nucleated RBC 0.000 Nucleated RBC % (auto) 0.0 PT INR VBG pH 7.45 H VBG pCO2 65 VBG pO2 55 VBG HCO3 45 H VBG O2 Saturation TNP VBG Base Excess 19.5 Anion Gap 11 L Estim Creat Clear Calc 35.2 Estimated GFR 37 Random Glucose 129 H Calcium 9.2 Magnesium 2.1 Total Bilirubin 1.2 H AST 33 H ALT < 6 Alkaline Phosphatase 59 Total Creatine Kinase 12 L Total Protein 6.5 Albumin 3.4 L Lipase 15 Urine Color Urine Appearance Urine pH Ur Specific [place] Urine Protein Urine Glucose (UA) Urine Ketones Urine Blood Urine Nitrite Ur Leukocyte Esterase Urine RBC Urine WBC Ur Squamous Epith Cells Urine Bacteria Hyaline Casts Stool Occult Blood POSITIVE Ethyl Alcohol < 10 Influenza Type A (PCR) NEGATIVE Influenza Type B (PCR) NEGATIVE RSV RNA Qual (PCR) NEGATIVE SARS-CoV-2 RNA (RT-PCR) NEGATIVE Blood Type A Positive Antibody Screen NEGATIVE Crossmatch See Detail 03/31/25 03/31/25 16:30 19:12 MCV MCH MCHC RDW Plt Count MPV Immature Gran % (Auto) Neut % (Auto) Lymph % (Auto) Angelina % (Auto) Eos % (Auto) Baso % (Auto) Lymph # (Auto) Angelina # (Auto) Eos # (Auto) Baso # (Auto) Abs Immat Gran (auto) Absolute Neuts (auto) Absolute Nucleated RBC Nucleated RBC % (auto) PT 14.7 H INR 1.3 H VBG pH VBG pCO2 VBG pO2 VBG HCO3 VBG O2 Saturation VBG Base Excess Anion Gap Estim Creat Clear Calc Estimated GFR Random Glucose Calcium Magnesium Total Bilirubin AST ALT Alkaline Phosphatase Total Creatine Kinase Total Protein Albumin Lipase Urine Color Yellow Urine Appearance Clear Urine pH 7.0 Ur Specific [place] 1.010 Urine Protein Negative Urine Glucose (UA) Negative Urine Ketones Negative Urine Blood Trace H Urine Nitrite Negative Ur Leukocyte Esterase Large (3+) H Urine RBC 6-10 H Urine WBC >50 H Ur Squamous Epith Cells 0-2 Urine Bacteria 4+ Hyaline Casts 3-5 Stool Occult Blood Ethyl Alcohol Influenza Type A (PCR) Influenza Type B (PCR) RSV RNA Qual (PCR) SARS-CoV-2 RNA (RT-PCR) Blood Type Antibody Screen Crossmatch ECG Attestation: I personally reviewed and interpreted this ECG as follows: (NSR no ischemic changes noted ) Prior ECG tracings: available for review Imaging Radiologist's Impressions: CT ABD IMPRESSION: 1. No focus of active hemorrhage identified within the bowel lumen no bowel obstruction. Two puwiwpwi-[id number] amount of stool present within the distal sigmoid colon and rectum. Component of fecal impaction may be present. 2. Cirrhotic hepatic morphology with evidence of portal venous hypertension including splenomegaly and extensive splenorenal and paraesophageal varices. 3. Indeterminate hypoattenuating lesion present within the right lobe of the liver measuring 2.0 cm, stable from prior imaging performed in 2022. CT head, CT cervical spine negative for acute findings KNee Xrays no acute findings Assessment and Plan (1) GI (gastrointestinal bleed): Status: Acute Plan Patient is a 79-year-old female currently residing in a [place] [facility] for the last 2 years with past medical history depression/anxiety, hepatitis-C and patient completed treatment, cirrhosis, GERD, COPD secondary to history of tobacco use, chronic low back pain, bilateral hip replacements, and mobility dependent on wheelchair, constipation, history of alcohol dependence, seizure disorder on Keppra, enucleated right eye is being admitted for GI bleed likely secondary paraesophageal and splenic varices with chronic cirrhosis and history of hepatitis-C. Acute anemia secondary to GI bleed with evidence of periesophageal and splenic varices and portal hypertension -gastroenterology consulted -patient NPO -patient receiving 1 unit of PRBCs for an H&H of 6.7 and 24.3 -stool positive for occult -patient has no history of colonoscopy or upper scope in the past -monitor H&H -sending iron panel -Protonix 40 IV b.i.d. 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 -patient currently on room air -Continuous pulse ox -Incentive spirometry Depression anxiety -continue usual medications once patient is no longer NPO and med rec is completed -no history of suicidal ideations -symptoms well controlled Chronic low back pain -morphine IV as patient is NPO, use p.r.n. DVT prophylaxis: Contraindicated secondary to GI bleed PPI prophylaxis: Protonix 40 IV b.i.d. Code status via [facility] from [place] [facility]: Full code patient did discuss changing to DNR DNI after this admission Med rec pending Quality Stroke Does the patient have a stroke diagnosis?: No Reason for No Anti-thrombotic by Day Two: Contraindicated VTE Prior VTE?: No VTE Risk Level:: Medical - moderate - high VTE Device Contraindication: N/A - Device Ordered VTE Drug Contraindication: Treatment Not Tolerated
[2025-03-31] MEDS: Octreotide Acetate 100 MCG/ML AMPUL 50 MCG IVPUSH (22:01)
[2025-03-31] MEDS: Octreotide Acetate 500 MCG in 0.9 % Sodium Chloride 500 ML 50.1 MCG IVCONT (22:02)
[2025-03-31 22:30] LABS: Ammonia 46 umol/L (13-55)
[2025-04-01] VITALS (10 sets, daily range): BP systolic 100–162; BP diastolic 47–66; PULSE 73–787; RESP 12–18; TEMP 36.2–37.4; O2SAT 90–97; BMI 38.9
[2025-04-01] MEDS: Morphine Sulfate 2 MG/ML CARTRIDGE 1 MG IVPUSH ×2 (05:05→09:51)
[2025-04-01 05:27] LABS: Basophils Percent Auto 0.3 % (0-2); Eosinophils Percent Auto 0.3 % (0-4); Hemoglobin 7.2 g/dl (12.0-16.0); PLT ABN DIST 1; Red Cell Distribution Width 18.4 % (11.0-16.0); SCAN SMEAR FLAG 1
[2025-04-01 05:28] LABS: Hematocrit 26.4 % (37.0-47.0); Imm Gran Abs Auto 0.01 X10*3/uL (0.00-0.03); Imm Gran Pct Auto 0.3 % (0.0-0.4); Lymphocytes Absolute Auto 0.6 X10*3/uL (1.2-4.9); Lymphocytes Percent Auto 16.7 % (20-40); Mean Corpuscular HGB Conc 27.3 g/dl (31.0-35.0); Mean Corpuscular Hemoglobin 20.6 pg (27.0-33.0); Mean Corpuscular Volume 75.6 fL (80.0-98.0); Monocytes Absolute Auto 0.5 X10*3/uL (0.1-1.2); Monocytes Percent Auto 14.7 % (2-11); Neutrophils Absolute Auto 2.3 x10*3/uL (2.0-8.3); Neutrophils Percent Auto 67.7 % (45-73); Red Blood Count 3.49 X10*6/uL (4.20-5.50); White Blood Count 3.4 X10*3/uL (4.8-10.8)
[2025-04-01 05:34] LABS: MANUAL DIFF FLAG NO; Platelet Count 68 X10*3/uL (160-400)
[2025-04-01 05:46] LABS: B Type Natriuretic Peptide 224 pg/mL (<100)
[2025-04-01 05:51] LABS: Alanine Aminotransferase < 6 U/L (0-31); Albumin Level 3.2 g/dL (3.5-5.0); Alkaline Phosphatase 58 U/L (39-117); Anion Gap 12 (12-20); Aspartate Amino Transferase 28 U/L (5-31); Bilirubin Total 1.6 mg/dL (0.0-1.0); Blood Urea Nitrogen 31 mg/dL (9-16); Calcium 8.8 mg/dL (8.4-10.2); Carbon Dioxide 31 mmol/L (22-29); Chloride 105 mmol/L (96-108); Creatinine Clr Calc Pharmacy 40.1; Estimated Glomerular Filt Rate 43; Glucose Random 123 mg/dL (60-115); Iron 44 mcg/dL (30-160); Percent Iron Saturation 11 % (15-50); Potassium 3.7 mmol/L (3.3-5.1); Sodium 144 mmol/L (135-145); Total Iron Binding Capacity 415 mcg/dL (228-428); Total Protein 6.2 g/dL (6.5-8.0); Unsaturated Iron Binding 371 ug/dL
[2025-04-01] MEDS: Pantoprazole Sodium 40 MG/10 ML VIAL IVPUSH ×2 (06:47→17:11)
--- NOTE | 2025-04-01 07:28 | PHA.MEDREC ---
Pharmacy Consult ? Medication Reconciliation Pharmacy has completed the medication reconciliation, utilized list from [facility].
[2025-04-01] MEDS: Octreotide Acetate 500 MCG in 0.9 % Sodium Chloride 500 ML 50.1 MCG IVCONT ×2 (08:14→18:30)
--- NOTE | 2025-04-01 09:04 | P.PNIM_ITS ---
Subjective Subjective Date of Service: 04/01/25 Review of Systems Follow up GI bleed no pain or discomfort no bleeding overnight Physical Exam 2 Vital Signs: Vital Signs: Last Vital Signs Temp 98.6 F 04/01/25 08:00 Pulse 75 04/01/25 08:00 Resp 18 04/01/25 08:00 BP 112/55 L 04/01/25 08:00 Pulse Ox 97 04/01/25 08:00 O2 Del Method Nasal Cannula 04/01/25 08:00 O2 Flow Rate 3 04/01/25 08:00 BMI result Body Mass Index 38.9 Appearing in no acute distress lung sounds are clear to auscultation heart regular rate rhythm, clear S1, S2 positive bowel sounds, abdomen is soft, nontender neuro patient is alert x3, no focal deficits wheelchair bound Objective Data Active Medications Albuterol/Ipratropium (Albuterol/Iprat 2.5/0.5mg 3 Ml Ampul.Neb) 3 ml INHALE RQ4H WHILE AWAKE PRN PRN Reason: Shortness of Breath/Wheezing Calcium Carbonate (Calcium Carbonate 750 Mg Tab.Chew) 750 mg PO Q4H PRN PRN Reason: Heartburn Ceftriaxone Sodium (Ceftriaxone Sodium 1 Gm Vial) 1 gm IVPUSH Q24H [facility] Octreotide Acetate 500 mcg/ (Sodium Chloride) 501 mls @ 50.1 mls/hr IVCONT .Q10H [facility] Last Admin: 04/01/25 08:14 Dose: 50 mcg/hr, 50.1 mls/hr Documented By: COURTNEY Magnesium Hydroxide (Milk Of Magnesia 30 Ml Oral.Susp) 30 ml PO DAILY PRN PRN Reason: Constipation Melatonin (Melatonin 3 Mg Tablet) 6 mg PO BEDTIME PRN PRN Reason: Insomnia Morphine Sulfate (Morphine Sulfate 2 Mg/Ml Cartridge) 1 mg IVPUSH Q3H PRN; Protocol PRN Reason: Pain, Severe (Pain Scale 7-10) Last Admin: 04/01/25 05:05 Dose: 1 mg Documented By: CIARA Ondansetron HCl (Ondansetron Hcl 4 Mg/2 Ml Vial) 4 mg IVPUSH Q8H PRN PRN Reason: Nausea and Vomiting Pantoprazole Sodium (Pantoprazole Sodium 40 Mg/10 Ml Vial) 40 mg IVPUSH BID@0630,1630 [facility] Last Admin: 04/01/25 06:47 Dose: 40 mg Documented By: CIARA Sodium Chloride (0.9 % Sodium Chloride Flush 3 Ml Syringe) 3 ml IVFLUSH [facility] Last Admin: 04/01/25 07:29 Dose: Not Given Documented By: DEVEN Non-Admin Reason: IV Running Labs 04/01/25 04:52 04/01/25 04:52 Labs: Laboratory Results - last 24 hr 03/31/25 03/31/25 03/31/25 15:13 15:27 16:06 MCV 73.2 L MCH 20.2 L MCHC 27.6 L RDW 18.2 H Plt Count 79 L D MPV 10.8 Immature Gran % (Auto) 0.5 H Neut % (Auto) 64.1 Lymph % (Auto) 17.3 L [place] % (Auto) 17.8 H Eos % (Auto) 0.0 Baso % (Auto) 0.3 Lymph # (Auto) 0.7 L [place] # (Auto) 0.7 Eos # (Auto) 0.0 Baso # (Auto) 0.0 Abs Immat Gran (auto) 0.02 Absolute Neuts (auto) 2.6 Absolute Nucleated RBC 0.000 Nucleated RBC % (auto) 0.0 PT INR VBG pH 7.45 H VBG pCO2 65 VBG pO2 55 VBG HCO3 45 H VBG O2 Saturation TNP VBG Base Excess 19.5 Anion Gap 11 L Estim Creat Clear Calc 35.2 Estimated GFR 37 Random Glucose 129 H Calcium 9.2 Magnesium 2.1 Iron TIBC % Saturation Unsat Iron Binding Total Bilirubin 1.2 H AST 33 H ALT < 6 Alkaline Phosphatase 59 Ammonia Total Creatine Kinase 12 L B-Natriuretic Peptide Total Protein 6.5 Albumin 3.4 L Lipase 15 Urine Color Urine Appearance Urine pH Ur Specific [place] Urine Protein Urine Glucose (UA) Urine Ketones Urine Blood Urine Nitrite Ur Leukocyte Esterase Urine RBC Urine WBC Ur Squamous Epith Cells Urine Bacteria Hyaline Casts Stool Occult Blood POSITIVE Ethyl Alcohol < 10 Influenza Type A (PCR) NEGATIVE Influenza Type B (PCR) NEGATIVE RSV RNA Qual (PCR) NEGATIVE SARS-CoV-2 RNA (RT-PCR) NEGATIVE Blood Type A Positive Antibody Screen NEGATIVE Crossmatch See Detail 03/31/25 03/31/25 03/31/25 16:30 19:12 21:43 MCV MCH MCHC RDW Plt Count MPV Immature Gran % (Auto) Neut % (Auto) Lymph % (Auto) [place] % (Auto) Eos % (Auto) Baso % (Auto) Lymph # (Auto) [place] # (Auto) Eos # (Auto) Baso # (Auto) Abs Immat Gran (auto) Absolute Neuts (auto) Absolute Nucleated RBC Nucleated RBC % (auto) PT 14.7 H INR 1.3 H VBG pH VBG pCO2 VBG pO2 VBG HCO3 VBG O2 Saturation VBG Base Excess Anion Gap Estim Creat Clear Calc Estimated GFR Random Glucose Calcium Magnesium Iron TIBC % Saturation Unsat Iron Binding Total Bilirubin AST ALT Alkaline Phosphatase Ammonia 46 Total Creatine Kinase B-Natriuretic Peptide Total Protein Albumin Lipase Urine Color Yellow Urine Appearance Clear Urine pH 7.0 Ur Specific [place] 1.010 Urine Protein Negative Urine Glucose (UA) Negative Urine Ketones Negative Urine Blood Trace H Urine Nitrite Negative Ur Leukocyte Esterase Large (3+) H Urine RBC 6-10 H Urine WBC >50 H Ur Squamous Epith Cells 0-2 Urine Bacteria 4+ Hyaline Casts 3-5 Stool Occult Blood Ethyl Alcohol Influenza Type A (PCR) Influenza Type B (PCR) RSV RNA Qual (PCR) SARS-CoV-2 RNA (RT-PCR) Blood Type Antibody Screen Crossmatch 04/01/25 04:52 MCV 75.6 L MCH 20.6 L MCHC 27.3 L RDW 18.4 H Plt Count 68 L MPV Not Reportable Immature Gran % (Auto) 0.3 Neut % (Auto) 67.7 Lymph % (Auto) 16.7 L [place] % (Auto) 14.7 H Eos % (Auto) 0.3 Baso % (Auto) 0.3 Lymph # (Auto) 0.6 L [place] # (Auto) 0.5 Eos # (Auto) 0.0 Baso # (Auto) 0.0 Abs Immat Gran (auto) 0.01 Absolute Neuts (auto) 2.3 Absolute Nucleated RBC 0.000 Nucleated RBC % (auto) 0.0 PT INR VBG pH VBG pCO2 VBG pO2 VBG HCO3 VBG O2 Saturation VBG Base Excess Anion Gap 12 Estim Creat Clear Calc 40.1 Estimated GFR 43 Random Glucose 123 H Calcium 8.8 Magnesium Iron 44 TIBC 415 % Saturation 11 L Unsat Iron Binding 371 Total Bilirubin 1.6 H AST 28 ALT < 6 Alkaline Phosphatase 58 Ammonia Total Creatine Kinase B-Natriuretic Peptide 224 H Total Protein 6.2 L Albumin 3.2 L Lipase Urine Color Urine Appearance Urine pH Ur Specific [place] Urine Protein Urine Glucose (UA) Urine Ketones Urine Blood Urine Nitrite Ur Leukocyte Esterase Urine RBC Urine WBC Ur Squamous Epith Cells Urine Bacteria Hyaline Casts Stool Occult Blood Ethyl Alcohol Influenza Type A (PCR) Influenza Type B (PCR) RSV RNA Qual (PCR) SARS-CoV-2 RNA (RT-PCR) Blood Type Antibody Screen Crossmatch Assessment and Plan (1) GI (gastrointestinal bleed): Status: Acute Plan 79-year-old female currently residing in a group home for the last 2 years with past medical history depression/anxiety, hepatitis-C and patient completed treatment, cirrhosis, GERD, COPD secondary to history of tobacco use, chronic low back pain, bilateral hip replacements, and mobility dependent on wheelchair, constipation, history of alcohol dependence, seizure disorder on Keppra, enucleated right eye is being admitted for GI bleed likely secondary paraesophageal and splenic varices with chronic cirrhosis and history of hepatitis-C. Acute anemia secondary to GI bleed with evidence of periesophageal and splenic varices and portal hypertension gastroenterology consulted s/p 1 unit of PRBCs for an H&H of 6.7 and 24.3 stool positive for occult iron 44 Protonix 40 IV b.i.d. 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 patient currently on room air Continuous pulse ox Incentive spirometry Depression anxiety continue usual medications no history of suicidal ideations symptoms well controlled Chronic low back pain morphine IV prn DVT prophylaxis: Contraindicated secondary to GI bleed Code status via MOLST from group home: Full code patient did discuss changing to DNR DNI after this admission Quality Stroke Does the patient have a stroke diagnosis?: No Reason for No Anti-thrombotic by Day Two: Contraindicated VTE Prior VTE?: No VTE Risk Level:: Medical - moderate - high VTE Device Contraindication: N/A - Device Ordered VTE Drug Contraindication: Treatment Not Tolerated
--- NOTE | 2025-04-01 09:19 | PM.GICN ---
History of Present Illness Data of Consult Service Date: 04/01/25 Requesting physician: Rachel Hannon Primary Care Provider: Antonia Celaya MD HPI Reason for consult: Anemia This is a 79-year-old female with past medical history of hepatitis C status post SVR that has led to cirrhosis, COPD, seizure disorder, who was brought to the hospital for multiple falls. Patient reports that for the past few days she has been having increased tremors, shakes and weakness. She also has lightheadedness when getting up. Sustained fall at shelter due to the same. No abdominal pain, nausea, vomiting. No changes in bowel habit. No melena or hematochezia. She reports history of cirrhosis secondary to alcohol use disorder. Was not aware of previous history of hepatitis-C. Last drink was 1 year ago, previous to that was drinking hard liquor heavily. Thinks may have been established with a liver doctor in [place] a few years ago, but unable to recall the name. Does not report any history of colonoscopy or endoscopy. On arrival to the hospital, she was noted to have stable vitals. Labs with hemoglobin of 6.7, drop from hemoglobin of 8.9 in October. Chronic thrombocytopenia, that is slightly better than baseline. INR 1.3. Chem 7 with renal function at baseline. CT abdomen pelvis with contrast shows left-sided stool burden. Cirrhotic appearing liver with portal hypertension including paraesophageal varices. 2 cm right lobe lesion, that has been present since at least 2022. Review of Systems Review of Systems: Yes all other systems are reviewed and are negative PMFSH Past Medical History Medical History (Updated 04/01/25 @ 09:53 by Rosa Russell MD) Cirrhosis FH: cholecystectomy Hepatitis C Splenomegaly Type 2 diabetes mellitus Morbid obesity CHF (congestive heart failure) Surgical History Surgical History H/O enucleation of right eyeball Hx of appendectomy History of hip replacement Social History Social History Household Members: None Housing: Assisted Do you presently have visiting nurse or other home services: Yes Alcohol intake: former Patient Tobacco Use Status: Former Tobacco user Tobacco use type: Cigarette Cigarette Packs Per Day: 1 Cigarettes Per Day: 20.0 Years Smoked: 30 Second Hand Smoke Exposure: No Advance Directives Date on File: 08/29/23 service: No Travel History Ebola Risk: Travel/Contact With Anyone From Affected Area/s: No Has Patient Experienced Ebola Symptoms: No Meds Allergies Allergy/AdvReac Type Severity Reaction Status Date / Time acetaminophen [From Tylenol] Allergy Unknown Verified 03/31/25 14:16 Active Medications: Current Medications Albuterol Sulfate (Albuterol Sulfate 90 Mcg 8 Gm Inhaler) 2 puff INHALE BID SCOUT Albuterol/Ipratropium (Albuterol/Iprat 2.5/0.5mg 3 Ml Ampul.Neb) 3 ml INHALE RQ4H WHILE AWAKE PRN PRN Reason: Shortness of Breath/Wheezing Albuterol/Ipratropium (Albuterol/Iprat 2.5/0.5mg 3 Ml Ampul.Neb) 3 ml INHALE Q6H PRN PRN Reason: Shortness Of Breath Or Wheezing Alprazolam (Alprazolam 0.25 Mg Tablet) 0.25 mg PO BID PRN PRN Reason: Anxiety Benzonatate (Benzonatate 100 Mg Capsule) 200 mg PO TID SCOUT Bisacodyl (Bisacodyl 10 Mg Supp.Rect) 10 mg [place] DAILY PRN PRN Reason: Constipation Bisacodyl (Bisacodyl 5 Mg Tablet.Dr) 30 mg PO BEDTIME SCOUT Calcium Carbonate (Calcium Carbonate 750 Mg Tab.Chew) 750 mg PO Q4H PRN PRN Reason: Heartburn Ceftriaxone Sodium (Ceftriaxone Sodium 1 Gm Vial) 1 gm IVPUSH Q24H [facility] Escitalopram Oxalate (Escitalopram Oxalate 5 Mg Tablet) 5 mg PO DAILY [facility] Escitalopram Oxalate (Escitalopram Oxalate 10 Mg Tablet) 10 mg PO DAILY [facility] Fluticasone Propionate (Fluticasone Propionate Nasal 16 Gm [place]) 1 spray NOSTRIL-B BID [facility] Fluticasone/Umeclidinium/Vilanterol (Fluticasone/Umeclidinium/Vilanterol 200/62.5/25 Blst.W.Dev) puff INHALE DAILY [facility] Furosemide (Furosemide 40 Mg Tablet) 40 mg PO BID SCOUT; Protocol Gabapentin (Gabapentin 300 Mg Capsule) 300 mg PO TID [facility] Guaifenesin (Guaifenesin [place] 600 Mg Tab.Er.12h) 600 mg PO BID [facility] Hydroxyzine HCl (Hydroxyzine Hcl 25 Mg Tablet) 25 mg PO Q8H PRN PRN Reason: rash/itching Octreotide Acetate 500 mcg/ (Sodium Chloride) 501 mls @ 50.1 mls/hr IVCONT .Q10H [facility] Last Admin: 04/01/25 08:14 Dose: 50 mcg/hr, 50.1 mls/hr Lactulose (Lactulose 20 Gm/30 Ml Solution) 30 gm PO TID [facility] Levetiracetam (Levetiracetam 500 Mg Tablet) 500 mg PO BID [facility] Loratadine (Loratadine 10 Mg Tablet) 10 mg PO DAILY [facility] Magnesium Hydroxide (Milk Of Magnesia 30 Ml Oral.Susp) 30 ml PO DAILY PRN PRN Reason: Constipation Magnesium Hydroxide (Milk Of Magnesia 30 Ml Oral.Susp) 30 ml PO DAILY PRN PRN Reason: Constipation Melatonin (Melatonin 3 Mg Tablet) 6 mg PO BEDTIME PRN PRN Reason: Insomnia Metoprolol Tartrate (Metoprolol Tartrate 25 Mg Tablet) 25 mg PO DAILY [facility]; Protocol Morphine Sulfate (Morphine Sulfate 2 Mg/Ml Cartridge) 1 mg IVPUSH Q3H PRN; Protocol PRN Reason: Pain, Severe (Pain Scale 7-10) Last Admin: 04/01/25 05:05 Dose: 1 mg Multivitamins/Vitamin C (Multivitamin Tablet) 1 tab PO DAILY [facility] Non-Formulary Medication (Pantoprazole) 40 mg PO DAILY@0630 [facility] Ondansetron HCl (Ondansetron Hcl 4 Mg/2 Ml Vial) 4 mg IVPUSH Q8H PRN PRN Reason: Nausea and Vomiting Oxycodone HCl (Oxycodone Hcl Immed Release 5 Mg Tablet) 5 mg PO Q8H PRN PRN Reason: Moderate Pain (Scale Score 5-6) Pantoprazole Sodium (Pantoprazole Sodium 40 Mg/10 Ml Vial) 40 mg IVPUSH BID@0630,1630 [facility] Last Admin: 04/01/25 06:47 Dose: 40 mg Sodium Biphosphate/Sodium Phosphate (Sodium Phosphate,[place]-Dibasic 133 Ml Enema) 118 ml [place] DAILY PRN PRN Reason: Constipation Sodium Chloride (0.9 % Sodium Chloride Flush 3 Ml Syringe) 3 ml IVFLUSH QSHIFT [facility] Last Admin: 04/01/25 07:29 Dose: Not Given Spironolactone (Spironolactone 25 Mg Tablet) 12.5 mg PO DAILY SCOUT; Protocol Thiamine HCl (Thiamine Hcl 100 Mg Tablet) 100 mg PO DAILY SCOUT Tizanidine HCl (Tizanidine Hcl 4 Mg Tablet) 2 mg PO Q8H PRN PRN Reason: Muscle Spasm Trazodone HCl (Trazodone Hcl 50 Mg Tablet) 50 mg PO BEDTIME [facility] Home Medications ?Medication ?Instructions ?Recorded ?Confirmed ?Last Taken ?Type albuterol sulfate 90 mcg/actuation 2 puff inhalation BID 06/28/23 04/01/25 Unknown History aerosol inhaler (ProAir HFA) alprazolam 0.25 mg tablet (Xanax) 0.25 mg PO BID PRN Anxiety 06/28/23 04/01/25 Unknown History bisacodyl 10 mg rectal suppository 10 mg WI DAILY PRN Constipation 06/28/23 04/01/25 Unknown History bisacodyl 5 mg tablet,delayed 5 mg PO BEDTIME 06/28/23 04/01/25 Unknown History release (Dulcolax (bisacodyl)) cetirizine 10 mg tablet 10 mg PO DAILY 06/28/23 04/01/25 Unknown History diclofenac sodium 1 % topical gel 4 g topical QID PRN Pain 06/28/23 04/01/25 Unknown History fluticasone propionate 50 1 spray intranasal BID 06/28/23 04/01/25 Unknown History mcg/actuation nasal spray,suspension (Flonase Allergy Relief) furosemide 20 mg tablet 40 mg PO BID 06/28/23 04/01/25 Unknown History gabapentin 300 mg capsule 300 mg PO TID 06/28/23 04/01/25 Unknown History ipratropium 0.5 mg-albuterol 3 mg 3 ml inhalation Q6H PRN Shortness 06/28/23 04/01/25 Unknown History (2.5 mg base)/3 mL nebulization Of Breath Or Wheezing soln lactulose 10 gram/15 mL oral 45 ml PO TID 06/28/23 04/01/25 06/26/23 History solution levetiracetam 500 mg tablet 500 mg PO BID 06/28/23 04/01/25 Unknown History (Keppra) magnesium hydroxide 400 mg/5 mL 30 ml PO DAILY PRN Constipation 06/28/23 04/01/25 Unknown History oral suspension (Milk of Magnesia) methyl salicylate 15 %-menthol 10 1 appl topical DAILY PRN neck pain 06/28/23 04/01/25 Unknown History % topical cream (Muscle Rub) metoprolol tartrate 25 mg tablet 25 mg PO DAILY 06/28/23 04/01/25 Unknown History multivitamin 1 tab PO DAILY 06/28/23 04/01/25 Unknown History nystatin 100,000 unit/gram topical 1 appl topical BID PRN redness 06/28/23 04/01/25 Unknown History powder oxycodone 5 mg tablet 5 mg PO Q8H PRN Moderate Pain 06/28/23 04/01/25 Unknown History (Scale Score 5-6) pantoprazole 40 mg tablet,delayed 40 mg PO DAILY@0630 06/28/23 04/01/25 Unknown History release sodium phosphates 19 gram-7 118 ml WI DAILY PRN Constipation 06/28/23 04/01/25 Unknown History gram/118 mL enema (Fleet Enema) thiamine HCl (vitamin B1) 100 mg 100 mg PO DAILY 06/28/23 04/01/25 Unknown History tablet tizanidine 2 mg tablet 2 mg PO Q8H PRN Muscle Spasm 06/28/23 04/01/25 Unknown History trazodone 50 mg tablet 50 mg PO BEDTIME 06/28/23 04/01/25 Unknown History cyclosporine 0.05 % eye drops in a 1 drp ophthalmic-Left BID 04/01/25 04/01/25 Unknown History dropperette (Restasis) escitalopram oxalate 10 mg tablet 10 mg PO DAILY 04/01/25 04/01/25 Unknown History escitalopram oxalate 5 mg tablet 5 mg PO DAILY 04/01/25 04/01/25 Unknown History fluticasone fur. 200 mcg-umeclid 1 ea inhalation DAILY 04/01/25 04/01/25 Unknown History 62.5 mcg-vilant 25 mcg inhalat.powder (Trelegy Ellipta) guaifenesin 100 mg/5 mL oral 200 mg PO Q6H PRN Cough 04/01/25 04/01/25 Unknown History liquid ([place]-Tussin) hydroxyzine HCl 25 mg tablet 25 mg PO Q8H PRN rash/itching 04/01/25 04/01/25 Unknown History spironolactone 25 mg tablet 12.5 mg PO DAILY 04/01/25 04/01/25 Unknown History white petrolatum-mineral oil eye 1 appl ophthalmic (eye) BEDTIME 04/01/25 04/01/25 Unknown History ointment Physical Exam Vital Signs: Vital Signs: Last Vital Signs Temp 98.6 F 04/01/25 08:00 Pulse 75 04/01/25 08:00 Resp 18 04/01/25 08:00 BP 112/55 L 04/01/25 08:00 Pulse Ox 97 04/01/25 08:00 O2 Del Method Nasal Cannula 04/01/25 08:00 O2 Flow Rate 3 04/01/25 08:00 BMI result Body Mass Index 38.9 Elderly female No acute distress Enucleated right eye No overt respiratory distress Abdomen soft, nontender, mildly distended, no guarding No lower extremity edema Results Labs 04/01/25 04:52 04/01/25 04:52 Labs: Short CBC 03/31/25 04/01/25 Range/Units 15:13 04:52 WBC 4.0 L 3.4 L (4.8-10.8) X10*3/uL Hgb 6.7 L* D 7.2 L (12.0-16.0) g/dl Hct 24.3 L 26.4 L (37.0-47.0) % Plt Count 79 L D 68 L (160-400) X10*3/uL BMP 03/31/25 04/01/25 15:13 04:52 Sodium 145 144 Potassium 3.7 3.7 Chloride 101 105 Carbon Dioxide 37 H 31 H BUN 35 H 31 H Creatinine 1.38 1.21 Calcium 9.2 8.8 Cardiac Enzymes 03/31/25 Range/Units 15:13 Total Creatine Kinase 12 L (26-140) U/L Liver Function 03/31/25 04/01/25 Range/Units 15:13 04:52 Total Bilirubin 1.2 H 1.6 H (0.0-1.0) mg/dL AST 33 H 28 (5-31) U/L ALT < 6 < 6 (0-31) U/L Alkaline Phosphatase 59 58 (39-117) U/L Albumin 3.4 L 3.2 L (3.5-5.0) g/dL Urine 03/31/25 Range/Units 16:30 Urine Color Yellow Urine Appearance Clear Urine pH 7.0 (5.0-9.0) Ur Specific [place] 1.010 (1.005-1.025) Urine Protein Negative (Neg-Trace) mg/dL Urine Glucose (UA) Negative (Negative) mg/dL Assessment and Plan (1) Symptomatic anemia: Status: Acute (2) Cirrhosis: Status: Acute Plan Patient presenting with progressive symptomatic anemia in the context of known cirrhosis. Differentials include bleeding from portal hypertensive gastropathy, gastritis, duodenitis, PUD, AVMs. Less likely to be variceal bleeding given insiduous was onset of symptoms but can not be excluded. Plan: - Keep x2 IV access at all times - Monitor H/H BID - Transfuse 1u PRBC now - Agree with empiric PPI, octreotide and CTX - NPO after MN for EGD tmrw - AFP pending, if high would recommend liver protocol MRI Thank you for allowing me to participate in her care. Please do not hesitate to reach out for any questions or concerns Procedures Date of Service Date of Service: 04/01/25
[2025-04-01] MEDS: ALPRAZolam 0.25 MG TABLET PO (11:49)
--- NOTE | 2025-04-01 11:49 | MHC.CM.PN ---
Addendum entered by Kelsey Simmons 04/01/25 12:28: Patient states that she is a DNR. [facility] has a MOLST: FULL CODE. A request has been sent to [facility] via [facility] for a copy of her new DNR. The molst form on paper chart is FULL CODE too. Provider, and RN are both aware DNR status + document requested by [facility]. Original Note: IMM 04/01/25 BIBA FOR WEAKNESS. 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 WC BOUND, O2 DEPENDENT 2L VIA NC HCP+ MOLST ON FILE DP RETURN [facility] VIA S
[2025-04-01 12:58] LABS: Estimated Average Glucose 140 mg/dL; Hemoglobin A1C 94.7411 umol/L; Hemoglobin A1c % 6.5 % (<6.0); Total Hemoglobin (HGBA1C) 1982.6792 umol/L
[2025-04-01] MEDS: Lactulose 20 GM/30 ML SOLUTION 30 GM PO ×2 (17:10→19:58)
[2025-04-01] MEDS: Gabapentin 300 MG CAPSULE PO ×2 (17:10→19:58)
[2025-04-01] MEDS: cefTRIAXone sodium 1 GM VIAL IVPUSH (17:11)
[2025-04-01] MEDS: Benzonatate 100 MG CAPSULE 200 MG PO ×2 (17:11→19:57)
[2025-04-01] MEDS: 0.9 % Sodium Chloride Flush 3 ML SYRINGE IVFLUSH (17:12)
[2025-04-01] MEDS: guaiFENesin LA 600 MG TAB.ER.12H PO (19:57)
[2025-04-01] MEDS: levETIRAcetam 500 MG TABLET PO (19:57)
[2025-04-01] MEDS: bisacodyL 5 MG TABLET.DR PO (19:58)
[2025-04-01] MEDS: traZODone HCL 50 MG TABLET PO (19:58)
[2025-04-01] MEDS: Furosemide 40 MG TABLET PO (19:58)
[2025-04-01] MEDS: Albuterol Sulfate 90 MCG 8 GM INHALER 2 PUFF INHALE (21:18)
--- NOTE | 2025-04-01 23:56 | PC.NURSE ---
Motor Vehicle Clerk assumed care of this patient at 23:30.
[2025-04-02] VITALS (12 sets, daily range): BP systolic 106–143; BP diastolic 52–76; PULSE 62–75; RESP 12–20; TEMP 36.1–37.6; O2SAT 94–100; BMI 40.4
[2025-04-02] MEDS: 0.9 % Sodium Chloride Flush 3 ML SYRINGE IVFLUSH ×2 (01:26→09:05)
[2025-04-02] MEDS: Octreotide Acetate 500 MCG in 0.9 % Sodium Chloride 500 ML 50.1 MCG IVCONT (04:41)
[2025-04-02] MEDS: Pantoprazole Sodium 40 MG/10 ML VIAL IVPUSH (05:42)
[2025-04-02] MEDS: Albuterol/Iprat 2.5/0.5MG 3 ML AMPUL.NEB INHALE (08:35)
[2025-04-02] MEDS: Morphine Sulfate 2 MG/ML CARTRIDGE 1 MG IVPUSH ×2 (09:05→21:54)
[2025-04-02] MEDS: ALPRAZolam 0.25 MG TABLET PO (09:06)
[2025-04-02] MEDS: levETIRAcetam 500 MG TABLET PO ×2 (09:06→21:45)
[2025-04-02] MEDS: Metoprolol Tartrate 25 MG TABLET PO (09:06)
[2025-04-02] MEDS: Gabapentin 300 MG CAPSULE PO ×3 (09:06→21:44)
[2025-04-02] MEDS: Spironolactone 25 MG TABLET 12.5 MG PO (09:06)
[2025-04-02] MEDS: guaiFENesin LA 600 MG TAB.ER.12H PO ×2 (09:07→21:44)
[2025-04-02] MEDS: Benzonatate 100 MG CAPSULE 200 MG PO ×3 (09:07→21:44)
[2025-04-02] MEDS: Escitalopram Oxalate 10 MG TABLET PO (09:07)
[2025-04-02] MEDS: Escitalopram Oxalate 5 MG TABLET PO (09:07)
[2025-04-02] MEDS: Multivitamin TABLET 1 TAB PO (09:07)
[2025-04-02] MEDS: Furosemide 40 MG TABLET PO ×2 (09:07→21:44)
[2025-04-02] MEDS: Thiamine HCL 100 MG TABLET PO (09:07)
[2025-04-02] MEDS: Loratadine 10 MG TABLET PO (09:08)
[2025-04-02] MEDS: Lactulose 20 GM/30 ML SOLUTION 30 GM PO ×2 (09:08→17:34)
--- NOTE | 2025-04-02 11:02 | P.PNIM_ITS ---
Subjective Subjective Date of Service: 04/02/25 Review of Systems Follow up GI bleed no pain or discomfort no bleeding overnight Physical Exam 2 Vital Signs: Vital Signs: Last Vital Signs Temp 98.2 F 04/02/25 08:00 Pulse 75 04/02/25 08:41 Resp 16 04/02/25 08:41 BP 112/52 L 04/02/25 08:00 Pulse Ox 100 04/02/25 08:00 O2 Del Method Room Air 04/02/25 08:00 O2 Flow Rate 1 04/01/25 19:34 BMI result Body Mass Index 40.4 Appearing in no acute distress lung sounds are clear to auscultation heart regular rate rhythm, clear S1, S2 positive bowel sounds, abdomen is soft, nontender neuro patient is alert x3, no focal deficits Objective Data Active Medications Albuterol Sulfate (Albuterol Sulfate 90 Mcg 8 Gm Inhaler) 2 puff INHALE BID [facility] Last Admin: 04/02/25 08:50 Dose: Not Given Documented By: SANDIE Non-Admin Reason: PRN duoned was given Albuterol/Ipratropium (Albuterol/Iprat 2.5/0.5mg 3 Ml Ampul.Neb) 3 ml INHALE RQ4H WHILE AWAKE PRN PRN Reason: Shortness of Breath/Wheezing Last Admin: 04/02/25 08:35 Dose: 3 ml Documented By: SANDIE Albuterol/Ipratropium (Albuterol/Iprat 2.5/0.5mg 3 Ml Ampul.Neb) 3 ml INHALE Q6H PRN PRN Reason: Shortness Of Breath Or Wheezing Alprazolam (Alprazolam 0.25 Mg Tablet) 0.25 mg PO BID PRN PRN Reason: Anxiety Last Admin: 04/02/25 09:06 Dose: 0.25 mg Documented By: BETI Benzonatate (Benzonatate 100 Mg Capsule) 200 mg PO TID [facility] Last Admin: 04/02/25 09:07 Dose: 200 mg Documented By: BETI Bisacodyl (Bisacodyl 10 Mg Supp.Rect) 10 mg CA DAILY PRN PRN Reason: Constipation Bisacodyl (Bisacodyl 5 Mg Tablet.Dr) 5 mg PO BEDTIME [facility] Last Admin: 04/01/25 19:58 Dose: 5 mg Documented By: DEMETRIO Calcium Carbonate (Calcium Carbonate 750 Mg Tab.Chew) 750 mg PO Q4H PRN PRN Reason: Heartburn Ceftriaxone Sodium (Ceftriaxone Sodium 1 Gm Vial) 1 gm IVPUSH Q24H [facility] Last Admin: 04/01/25 17:11 Dose: 1 gm Documented By: BETI Escitalopram Oxalate (Escitalopram Oxalate 5 Mg Tablet) 5 mg PO DAILY [facility] Last Admin: 04/02/25 09:07 Dose: 5 mg Documented By: BETI Escitalopram Oxalate (Escitalopram Oxalate 10 Mg Tablet) 10 mg PO DAILY [facility] Last Admin: 04/02/25 09:07 Dose: 10 mg Documented By: BETI Fluticasone Propionate (Fluticasone Propionate Nasal 16 Gm [place]) 1 spray NOSTRIL-B BID [facility] Last Admin: 04/01/25 22:03 Dose: Not Given Documented By: DEMETRIO Non-Admin Reason: Patient Refused Fluticasone/Umeclidinium/Vilanterol (Fluticasone/Umeclidinium/Vilanterol 200/62.5/25 Blst.W.Dev) 1 puff INHALE RDAILY [facility] Last Admin: 04/02/25 08:37 Dose: Not Given Documented By: SANDIE Non-Admin Reason: Med Not Available Furosemide (Furosemide 40 Mg Tablet) 40 mg PO BID [facility]; Protocol Last Admin: 04/02/25 09:07 Dose: 40 mg Documented By: BETI Gabapentin (Gabapentin 300 Mg Capsule) 300 mg PO TID [facility] Last Admin: 04/02/25 09:06 Dose: 300 mg Documented By: BETI Guaifenesin (Guaifenesin La 600 Mg Tab.Er.12h) 600 mg PO BID [facility] Last Admin: 04/02/25 09:07 Dose: 600 mg Documented By: BETI Hydroxyzine HCl (Hydroxyzine Hcl 25 Mg Tablet) 25 mg PO Q8H PRN PRN Reason: rash/itching Octreotide Acetate 500 mcg/ (Sodium Chloride) 501 mls @ 50.1 mls/hr IVCONT .Q10H [facility] Last Admin: 04/02/25 04:41 Dose: 50 mcg/hr, 50.1 mls/hr Documented By: OMKAR Lactulose (Lactulose 20 Gm/30 Ml Solution) 30 gm PO TID [facility] Last Admin: 04/02/25 09:08 Dose: 30 gm Documented By: BETI Levetiracetam (Levetiracetam 500 Mg Tablet) 500 mg PO BID [facility] Last Admin: 04/02/25 09:06 Dose: 500 mg Documented By: BETI Loratadine (Loratadine 10 Mg Tablet) 10 mg PO DAILY [facility] Last Admin: 04/02/25 09:08 Dose: 10 mg Documented By: BETI Magnesium Hydroxide (Milk Of Magnesia 30 Ml Oral.Susp) 30 ml PO DAILY PRN PRN Reason: Constipation Melatonin (Melatonin 3 Mg Tablet) 6 mg PO BEDTIME PRN PRN Reason: Insomnia Metoprolol Tartrate (Metoprolol Tartrate 25 Mg Tablet) 25 mg PO DAILY [facility]; Protocol Last Admin: 04/02/25 09:06 Dose: 25 mg Documented By: BETI Morphine Sulfate (Morphine Sulfate 2 Mg/Ml Cartridge) 1 mg IVPUSH Q3H PRN; Protocol PRN Reason: Pain, Severe (Pain Scale 7-10) Last Admin: 04/02/25 09:05 Dose: 1 mg Documented By: BETI Multivitamins/Vitamin C (Multivitamin Tablet) 1 tab PO DAILY [facility] Last Admin: 04/02/25 09:07 Dose: 1 tab Documented By: BETI Ondansetron HCl (Ondansetron Hcl 4 Mg/2 Ml Vial) 4 mg IVPUSH Q8H PRN PRN Reason: Nausea and Vomiting Oxycodone HCl (Oxycodone Hcl Immed Release 5 Mg Tablet) 5 mg PO Q8H PRN PRN Reason: Moderate Pain (Scale Score 5-6) Pantoprazole Sodium (Pantoprazole Sodium 40 Mg/10 Ml Vial) 40 mg IVPUSH BID@0630,1630 [facility] Last Admin: 04/02/25 05:42 Dose: 40 mg Documented By: OMKAR Sodium Biphosphate/Sodium Phosphate (Sodium Phosphate,[place]-Dibasic 133 Ml Enema) 118 ml CA DAILY PRN PRN Reason: Constipation Sodium Chloride (0.9 % Sodium Chloride Flush 3 Ml Syringe) [facility] Last Admin: 04/02/25 09:05 Dose: 3 ml Documented By: BETI Spironolactone (Spironolactone 25 Mg Tablet) 12.5 mg PO DAILY [facility]; Protocol Last Admin: 04/02/25 09:06 Dose: 12.5 mg Documented By: BETI Thiamine HCl (Thiamine Hcl 100 Mg Tablet) 100 mg PO DAILY [facility] Last Admin: 04/02/25 09:07 Dose: 100 mg Documented By: BETI Tizanidine HCl (Tizanidine Hcl 4 Mg Tablet) 2 mg PO Q8H PRN PRN Reason: Muscle Spasm Trazodone HCl (Trazodone Hcl 50 Mg Tablet) 50 mg PO BEDTIME [facility] Last Admin: 04/01/25 19:58 Dose: 50 mg Documented By: DEMETRIO Labs 04/02/25 11:18 04/01/25 04:52 Labs: Laboratory Results - last 24 hr 03/31/25 04/01/25 16:06 04:52 Estimat Average Glucose 140 Hemoglobin A1c % 6.5 H Crossmatch See Detail Microbiology Microbiology Results: Microbiology 03/31/25 Unknown Urine Culture - Final Urine clean catch - Clean Catch Midstream Assessment and Plan (1) GI (gastrointestinal bleed): Status: Acute Plan 79-year-old female currently residing in a shelter for the last 2 years with past medical history depression/anxiety, hepatitis-C and patient completed treatment, cirrhosis, GERD, COPD secondary to history of tobacco use, chronic low back pain, bilateral hip replacements, and mobility dependent on wheelchair, constipation, history of alcohol dependence, seizure disorder on Keppra, enucleated right eye is being admitted for GI bleed likely secondary paraesophageal and splenic varices with chronic cirrhosis and history of hepatitis-C. Acute anemia secondary to GI bleed with evidence of periesophageal and splenic varices and portal hypertension s/p 1 unit of PRBCs for an H&H of 6.7 and 24.3 stool positive for occult iron 44 Protonix 40 IV b.i.d. 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 patient currently on room air Continuous pulse ox Incentive spirometry Depression anxiety continue usual medications no history of suicidal ideations symptoms well controlled Chronic low back pain morphine IV prn DVT prophylaxis: Contraindicated secondary to GI bleed Code status via [facility] from shelter: Full code patient did discuss changing to DNR DNI after this admission Quality Stroke Does the patient have a stroke diagnosis?: No Reason for No Anti-thrombotic by Day Two: Contraindicated VTE Prior VTE?: No VTE Risk Level:: Medical - moderate - high VTE Device Contraindication: N/A - Device Ordered VTE Drug Contraindication: Treatment Not Tolerated
[2025-04-02 11:24] LABS: Hematocrit 26.8 % (37.0-47.0); Hemoglobin 7.7 g/dl (12.0-16.0)
--- NOTE | 2025-04-02 12:06 | HO.ANESPROP2 ---
[facility] Active Problems Active Problems: All Active Problems Cirrhosis (Acute) GI (gastrointestinal bleed) (Acute) Symptomatic anemia (Acute) Chronic lung disease (Acute) Acute on chronic respiratory failure with hypoxia and hypercapnia (Acute) COPD exacerbation (Acute) Hypoxia (Acute) Past Medical History Medical History Cirrhosis FH: cholecystectomy Hepatitis C Splenomegaly Type 2 diabetes mellitus Morbid obesity CHF (congestive heart failure) Functional capacity: independent ambulation (Patient states she is no longer able to walk after her 2nd hip repair) Patient : No Family History Family history of problems with anesthesia: Yes Surgical History Surgical History H/O enucleation of right eyeball Hx of appendectomy History of hip replacement History of Problems with Anesthesia: No Social History Social History Household Members: None Housing: Long-Term Do you presently have visiting nurse or other home services: Yes Alcohol intake: former Patient Tobacco Use Status: Former Tobacco user Tobacco use type: Cigarette Cigarette Packs Per Day: 1 Cigarettes Per Day: 20.0 Years Smoked: 30 Second Hand Smoke Exposure: No Advance Directives Date on File: 08/29/23 service: No Meds Allergies Allergy/AdvReac Type Severity Reaction Status Date / Time acetaminophen [From Tylenol] Allergy Unknown Verified 03/31/25 14:16 Active Medications: Current Medications Albuterol Sulfate (Albuterol Sulfate 90 Mcg 8 Gm Inhaler) 2 puff INHALE BID [facility] Last Admin: 04/02/25 08:50 Dose: Not Given Albuterol/Ipratropium (Albuterol/Iprat 2.5/0.5mg 3 Ml Ampul.Neb) 3 ml INHALE RQ4H WHILE AWAKE PRN PRN Reason: Shortness of Breath/Wheezing Last Admin: 04/02/25 08:35 Dose: 3 ml Albuterol/Ipratropium (Albuterol/Iprat 2.5/0.5mg 3 Ml Ampul.Neb) 3 ml INHALE Q6H PRN PRN Reason: Shortness Of Breath Or Wheezing Alprazolam (Alprazolam 0.25 Mg Tablet) 0.25 mg PO BID PRN PRN Reason: Anxiety Last Admin: 04/02/25 09:06 Dose: 0.25 mg Benzonatate (Benzonatate 100 Mg Capsule) 200 mg PO TID [facility] Last Admin: 04/02/25 09:07 Dose: 200 mg Bisacodyl (Bisacodyl 10 Mg Supp.Rect) 10 mg RI DAILY PRN PRN Reason: Constipation Bisacodyl (Bisacodyl 5 Mg Tablet.Dr) 5 mg PO BEDTIME [facility] Last Admin: 04/01/25 19:58 Dose: 5 mg Calcium Carbonate (Calcium Carbonate 750 Mg Tab.Chew) 750 mg PO Q4H PRN PRN Reason: Heartburn Ceftriaxone Sodium (Ceftriaxone Sodium 1 Gm Vial) 1 gm IVPUSH Q24H [facility] Last Admin: 04/01/25 17:11 Dose: 1 gm Escitalopram Oxalate (Escitalopram Oxalate 5 Mg Tablet) 5 mg PO DAILY [facility] Last Admin: 04/02/25 09:07 Dose: 5 mg Escitalopram Oxalate (Escitalopram Oxalate 10 Mg Tablet) 10 mg PO DAILY [facility] Last Admin: 04/02/25 09:07 Dose: 10 mg Fluticasone Propionate (Fluticasone Propionate Nasal 16 Gm [place]) 1 spray NOSTRIL-B BID [facility] Last Admin: 04/01/25 22:03 Dose: Not Given Fluticasone/Umeclidinium/Vilanterol (Fluticasone/Umeclidinium/Vilanterol 200/62.5/25 Blst.W.Dev) 1 puff INHALE RDAILY [facility] Last Admin: 04/02/25 08:37 Dose: Not Given Furosemide (Furosemide 40 Mg Tablet) 40 mg PO BID [facility]; Protocol Last Admin: 04/02/25 09:07 Dose: 40 mg Gabapentin (Gabapentin 300 Mg Capsule) 300 mg PO TID [facility] Last Admin: 04/02/25 09:06 Dose: 300 mg Guaifenesin (Guaifenesin La 600 Mg Tab.Er.12h) 600 mg PO BID [facility] Last Admin: 04/02/25 09:07 Dose: 600 mg Hydroxyzine HCl (Hydroxyzine Hcl 25 Mg Tablet) 25 mg PO Q8H PRN PRN Reason: rash/itching Octreotide Acetate 500 mcg/ (Sodium Chloride) 501 mls @ 50.1 mls/hr IVCONT .Q10H [facility] Last Admin: 04/02/25 04:41 Dose: 50 mcg/hr, 50.1 mls/hr Lactulose (Lactulose 20 Gm/30 Ml Solution) 30 gm PO TID [facility] Last Admin: 04/02/25 09:08 Dose: 30 gm Levetiracetam (Levetiracetam 500 Mg Tablet) 500 mg PO BID [facility] Last Admin: 04/02/25 09:06 Dose: 500 mg Loratadine (Loratadine 10 Mg Tablet) 10 mg PO DAILY [facility] Last Admin: 04/02/25 09:08 Dose: 10 mg Magnesium Hydroxide (Milk Of Magnesia 30 Ml Oral.Susp) 30 ml PO DAILY PRN PRN Reason: Constipation Melatonin (Melatonin 3 Mg Tablet) 6 mg PO BEDTIME PRN PRN Reason: Insomnia Metoprolol Tartrate (Metoprolol Tartrate 25 Mg Tablet) 25 mg PO DAILY [facility]; Protocol Last Admin: 04/02/25 09:06 Dose: 25 mg Morphine Sulfate (Morphine Sulfate 2 Mg/Ml Cartridge) 1 mg IVPUSH Q3H PRN; Protocol PRN Reason: Pain, Severe (Pain Scale 7-10) Last Admin: 04/02/25 09:05 Dose: 1 mg Multivitamins/Vitamin C (Multivitamin Tablet) 1 tab PO DAILY [facility] Last Admin: 04/02/25 09:07 Dose: 1 tab Ondansetron HCl (Ondansetron Hcl 4 Mg/2 Ml Vial) 4 mg IVPUSH Q8H PRN PRN Reason: Nausea and Vomiting Oxycodone HCl (Oxycodone Hcl Immed Release 5 Mg Tablet) 5 mg PO Q8H PRN PRN Reason: Moderate Pain (Scale Score 5-6) Pantoprazole Sodium (Pantoprazole Sodium 40 Mg/10 Ml Vial) 40 mg IVPUSH BID@0630,1630 [facility] Last Admin: 04/02/25 05:42 Dose: 40 mg Sodium Biphosphate/Sodium Phosphate (Sodium Phosphate,[place]-Dibasic 133 Ml Enema) 118 ml RI DAILY PRN PRN Reason: Constipation Sodium Chloride (0.9 % Sodium Chloride Flush 3 Ml Syringe) 3 ml IVFLUSH QSHIFT [facility] Last Admin: 04/02/25 09:05 Dose: 3 ml Spironolactone (Spironolactone 25 Mg Tablet) 12.5 mg PO DAILY [facility]; Protocol Last Admin: 04/02/25 09:06 Dose: 12.5 mg Thiamine HCl (Thiamine Hcl 100 Mg Tablet) 100 mg PO DAILY [facility] Last Admin: 04/02/25 09:07 Dose: 100 mg Tizanidine HCl (Tizanidine Hcl 4 Mg Tablet) 2 mg PO Q8H PRN PRN Reason: Muscle Spasm Trazodone HCl (Trazodone Hcl 50 Mg Tablet) 50 mg PO BEDTIME [facility] Last Admin: 04/01/25 19:58 Dose: 50 mg Home Medications ?Medication ?Instructions ?Recorded ?Confirmed ?Last Taken ?Type albuterol sulfate 90 mcg/actuation 2 puff inhalation BID 06/28/23 04/01/25 Unknown History aerosol inhaler (ProAir HFA) alprazolam 0.25 mg tablet (Xanax) 0.25 mg PO BID PRN Anxiety 06/28/23 04/01/25 Unknown History bisacodyl 10 mg rectal suppository 10 mg RI DAILY PRN Constipation 06/28/23 04/01/25 Unknown History bisacodyl 5 mg tablet,delayed 5 mg PO BEDTIME 06/28/23 04/01/25 Unknown History release (Dulcolax (bisacodyl)) cetirizine 10 mg tablet 10 mg PO DAILY 06/28/23 04/01/25 Unknown History diclofenac sodium 1 % topical gel 4 g topical QID PRN Pain 06/28/23 04/01/25 Unknown History fluticasone propionate 50 1 spray intranasal BID 06/28/23 04/01/25 Unknown History mcg/actuation nasal spray,suspension (Flonase Allergy Relief) furosemide 20 mg tablet 40 mg PO BID 06/28/23 04/01/25 Unknown History gabapentin 300 mg capsule 300 mg PO TID 06/28/23 04/01/25 Unknown History ipratropium 0.5 mg-albuterol 3 mg 3 ml inhalation Q6H PRN Shortness 06/28/23 04/01/25 Unknown History (2.5 mg base)/3 mL nebulization Of Breath Or Wheezing soln lactulose 10 gram/15 mL oral 45 ml PO TID 06/28/23 04/01/25 06/26/23 History solution levetiracetam 500 mg tablet 500 mg PO BID 06/28/23 04/01/25 Unknown History (Keppra) magnesium hydroxide 400 mg/5 mL 30 ml PO DAILY PRN Constipation 06/28/23 04/01/25 Unknown History oral suspension (Milk of Magnesia) methyl salicylate 15 %-menthol 10 1 appl topical DAILY PRN neck pain 06/28/23 04/01/25 Unknown History % topical cream (Muscle Rub) metoprolol tartrate 25 mg tablet 25 mg PO DAILY 06/28/23 04/01/25 Unknown History multivitamin 1 tab PO DAILY 06/28/23 04/01/25 Unknown History nystatin 100,000 unit/gram topical 1 appl topical BID PRN redness 06/28/23 04/01/25 Unknown History powder oxycodone 5 mg tablet 5 mg PO Q8H PRN Moderate Pain 06/28/23 04/01/25 Unknown History (Scale Score 5-6) pantoprazole 40 mg tablet,delayed 40 mg PO DAILY@0630 06/28/23 04/01/25 Unknown History release sodium phosphates 19 gram-7 118 ml RI DAILY PRN Constipation 06/28/23 04/01/25 Unknown History gram/118 mL enema (Fleet Enema) thiamine HCl (vitamin B1) 100 mg 100 mg PO DAILY 06/28/23 04/01/25 Unknown History tablet tizanidine 2 mg tablet 2 mg PO Q8H PRN Muscle Spasm 06/28/23 04/01/25 Unknown History trazodone 50 mg tablet 50 mg PO BEDTIME 06/28/23 04/01/25 Unknown History cyclosporine 0.05 % eye drops in a 1 drp ophthalmic-Left BID 04/01/25 04/01/25 Unknown History dropperette (Restasis) escitalopram oxalate 10 mg tablet 10 mg PO DAILY 04/01/25 04/01/25 Unknown History escitalopram oxalate 5 mg tablet 5 mg PO DAILY 04/01/25 04/01/25 Unknown History fluticasone fur. 200 mcg-umeclid 1 ea inhalation DAILY 04/01/25 04/01/25 Unknown History 62.5 mcg-vilant 25 mcg inhalat.powder (Trelegy Ellipta) guaifenesin 100 mg/5 mL oral 200 mg PO Q6H PRN Cough 04/01/25 04/01/25 Unknown History liquid ([place]-Tussin) hydroxyzine HCl 25 mg tablet 25 mg PO Q8H PRN rash/itching 04/01/25 04/01/25 Unknown History spironolactone 25 mg tablet 12.5 mg PO DAILY 04/01/25 04/01/25 Unknown History white petrolatum-mineral oil eye 1 appl ophthalmic (eye) BEDTIME 04/01/25 04/01/25 Unknown History ointment Exam Exam Date and Time: april [id number] Height,Weight and Vital Signs: Height 5 ft 2 in Weight 100.1 kg Last Vital Signs Temp 98.2 F 04/02/25 08:00 Pulse 75 04/02/25 08:41 Resp 16 04/02/25 08:41 BP 112/52 L 04/02/25 08:00 Pulse Ox 100 04/02/25 08:00 O2 Del Method Room Air 04/02/25 08:00 O2 Flow Rate 1 04/01/25 19:34 Pertinent Lab Results Pertinent Lab Results: Laboratory Tests 03/31/25 03/31/25 03/31/25 15:13 15:27 16:06 WBC 4.0 L RBC 3.32 L Hgb 6.7 L* D Hct 24.3 L MCV 73.2 L MCH 20.2 L MCHC 27.6 L RDW 18.2 H Plt Count 79 L D MPV 10.8 Immature Gran % (Auto) 0.5 H Neut % (Auto) 64.1 Lymph % (Auto) 17.3 L [place] % (Auto) 17.8 H Eos % (Auto) 0.0 Baso % (Auto) 0.3 Lymph # (Auto) 0.7 L [place] # (Auto) 0.7 Eos # (Auto) 0.0 Baso # (Auto) 0.0 Abs Immat Gran (auto) 0.02 Absolute Neuts (auto) 2.6 Absolute Nucleated RBC 0.000 Nucleated RBC % (auto) 0.0 PT INR VBG pH 7.45 H VBG pCO2 65 VBG pO2 55 VBG HCO3 45 H VBG O2 Saturation TNP VBG Base Excess 19.5 Sodium 145 Potassium 3.7 Chloride 101 Carbon Dioxide 37 H Anion Gap 11 L BUN 35 H Creatinine 1.38 Estim Creat Clear Calc 35.2 Estimated GFR 37 Random Glucose 129 H Estimat Average Glucose Hemoglobin A1c % Calcium 9.2 Magnesium 2.1 Iron TIBC % Saturation Unsat Iron Binding Total Bilirubin 1.2 H AST 33 H ALT < 6 Alkaline Phosphatase 59 Ammonia Total Creatine Kinase 12 L Troponin I High Sens 8.0 B-Natriuretic Peptide Total Protein 6.5 Albumin 3.4 L Lipase 15 Alpha Fetoprotein Urine Color Urine Appearance Urine pH Ur Specific [place] Urine Protein Urine Glucose (UA) Urine Ketones Urine Blood Urine Nitrite Ur Leukocyte Esterase Urine RBC Urine WBC Ur Squamous Epith Cells Urine Bacteria Hyaline Casts Stool Occult Blood POSITIVE Ethyl Alcohol < 10 Influenza Type A (PCR) NEGATIVE Influenza Type B (PCR) NEGATIVE RSV RNA Qual (PCR) NEGATIVE SARS-CoV-2 RNA (RT-PCR) NEGATIVE Blood Type A Positive Antibody Screen NEGATIVE Crossmatch See Detail 03/31/25 03/31/25 03/31/25 16:30 19:12 21:43 WBC RBC Hgb Hct MCV MCH MCHC RDW Plt Count MPV Immature Gran % (Auto) Neut % (Auto) Lymph % (Auto) [place] % (Auto) Eos % (Auto) Baso % (Auto) Lymph # (Auto) [place] # (Auto) Eos # (Auto) Baso # (Auto) Abs Immat Gran (auto) Absolute Neuts (auto) Absolute Nucleated RBC Nucleated RBC % (auto) PT 14.7 H INR 1.3 H VBG pH VBG pCO2 VBG pO2 VBG HCO3 VBG O2 Saturation VBG Base Excess Sodium Potassium Chloride Carbon Dioxide Anion Gap BUN Creatinine Estim Creat Clear Calc Estimated GFR Random Glucose Estimat Average Glucose Hemoglobin A1c % Calcium Magnesium Iron TIBC % Saturation Unsat Iron Binding Total Bilirubin AST ALT Alkaline Phosphatase Ammonia 46 Total Creatine Kinase Troponin I High Sens B-Natriuretic Peptide Total Protein Albumin Lipase Alpha Fetoprotein Urine Color Yellow Urine Appearance Clear Urine pH 7.0 Ur Specific [place] 1.010 Urine Protein Negative Urine Glucose (UA) Negative Urine Ketones Negative Urine Blood Trace H Urine Nitrite Negative Ur Leukocyte Esterase Large (3+) H Urine RBC 6-10 H Urine WBC >50 H Ur Squamous Epith Cells 0-2 Urine Bacteria 4+ Hyaline Casts 3-5 Stool Occult Blood Ethyl Alcohol Influenza Type A (PCR) Influenza Type B (PCR) RSV RNA Qual (PCR) SARS-CoV-2 RNA (RT-PCR) Blood Type Antibody Screen Crossmatch 04/01/25 04/02/25 04:52 11:18 WBC 3.4 L RBC 3.49 L Hgb 7.2 L 7.7 L Hct 26.4 L 26.8 L MCV 75.6 L MCH 20.6 L MCHC 27.3 L RDW 18.4 H Plt Count 68 L MPV Not Reportable Immature Gran % (Auto) 0.3 Neut % (Auto) 67.7 Lymph % (Auto) 16.7 L [place] % (Auto) 14.7 H Eos % (Auto) 0.3 Baso % (Auto) 0.3 Lymph # (Auto) 0.6 L [place] # (Auto) 0.5 Eos # (Auto) 0.0 Baso # (Auto) 0.0 Abs Immat Gran (auto) 0.01 Absolute Neuts (auto) 2.3 Absolute Nucleated RBC 0.000 Nucleated RBC % (auto) 0.0 PT INR VBG pH VBG pCO2 VBG pO2 VBG HCO3 VBG O2 Saturation VBG Base Excess Sodium 144 Potassium 3.7 Chloride 105 Carbon Dioxide 31 H Anion Gap 12 BUN 31 H Creatinine 1.21 Estim Creat Clear Calc 40.1 Estimated GFR 43 Random Glucose 123 H Estimat Average Glucose 140 Hemoglobin A1c % 6.5 H Calcium 8.8 Magnesium Iron 44 TIBC 415 % Saturation 11 L Unsat Iron Binding 371 Total Bilirubin 1.6 H AST 28 ALT < 6 Alkaline Phosphatase 58 Ammonia Total Creatine Kinase Troponin I High Sens B-Natriuretic Peptide 224 H Total Protein 6.2 L Albumin 3.2 L Lipase Alpha Fetoprotein 3.0 Urine Color Urine Appearance Urine pH Ur Specific [place] Urine Protein Urine Glucose (UA) Urine Ketones Urine Blood Urine Nitrite Ur Leukocyte Esterase Urine RBC Urine WBC Ur Squamous Epith Cells Urine Bacteria Hyaline Casts Stool Occult Blood Ethyl Alcohol Influenza Type A (PCR) Influenza Type B (PCR) RSV RNA Qual (PCR) SARS-CoV-2 RNA (RT-PCR) Blood Type Antibody Screen Crossmatch Airway Mallampati Class: II TM Dist: >3cm Loose/Missing/Broken Teeth: Yes, Upper and Lower Heart: rrr Lungs: cta Other: multiple medical problems. Assessment and Plan Final Anesthetic Review Family History of Problems with Anesthesia: Yes History of Problems with Anesthesia: No NPO: Yes ASA Class: III Final Preanesthetic Review: No Changes in Pt Med Stat, Consent Obtained/Reviewed and Anes Risks/Benef Reviewed Patient Risk: High Procedure Risk: Low Anesthetic Plan Anesthetic Plan: MAC: and Agree w/ Assess. and Plan Disposition: Standard PACU
--- NOTE | 2025-04-02 12:08 | MHC.SHP ---
Pre-Procedural Eval Section A - 24 Hr Update-Section A only Date of Service: 04/02/25 The patient is an INPATIENT: Yes The patient has been examined within 24 hours of the surgical procedure. The History & Physical has been completed within 30 days and I have reviewed it.: Yes Section B - Complete if H&P > 30 days Chief Complaint: Weakness Allergies: Allergies Allergy/AdvReac Type Severity Reaction Status Date / Time acetaminophen [From Tylenol] Allergy Unknown Verified 03/31/25 14:16 Plan Diagnosis/Plan: Unchanged I have reviewed the history and physical and performed a pertinent physical examination on my patient. No changes have occurred unless specified. Time Spent With Patient Time: Total time managing care of this patient today ____ minutes.
[2025-04-02 12:34] LABS: Glucose, Whole Blood 124 mg/dL (60-115)
--- NOTE | 2025-04-02 12:55 | P.OP_ITS ---
Operative Note Operative Note Date of Service: 04/02/25 Narrative: Procedure: Esophagogastroduodenoscopy Endoscopist: Rosa Russell MD Indication: Anemia, cirrhosis r/o varices Anesthesia Provider: Wale Rogers CRNA Anesthesia Type: MAC ?? EGD Procedure:?? The procedure, indications, preparation and potential complications were reviewed with the patient, who indicated understanding and gave written informed consent to proceed. A physical exam was performed. The endoscope was introduced through the mouth, and advanced to the second part of duodenum. The mucosa was carefully examined on slow withdrawal of the endoscope. The patient tolerated the procedure well. There were no immediate complications.? ? EGD Findings:? * Esophagus:? Normal mucosa noted in the entire esophagus. The Z line was at 38 cm. Flat varices were noted in lower esophagus. * Stomach:?Diffuse congestion and erythema in mosaic pattern consistent with portal hypertensive gastropathy was noted in the whole stomach. Cold forceps biopsies were taken for histology. Retroflexion was performed in the cardia. Watermelon appearance of antrum noted with spontaneous bleeding consistent with gastric antral vascular ectasia (GAVE). Argon plasma coagulation (APC) was applied using circumferential catheter for hemostasis. * Duodenum:? Edema and congestion noted in the duodenum to the extent examined. ? EGD Impressions:? * Flat varices * Portal hypertensive gastropathy (biopsy) * Oozing GAVE (APC) * Portal hypertensive duodenopathy ?? Recommendations:?? * Follow biopsy results. Our office will call or send a letter with results within 7-10 days. * Can discontinue octreotide * Continue PPI - can be switched to oral * Start carafate 10 ml QID x 14 days * Complete ceftriaxone for total of 7 days. Can be switched to PO cipro on discharge. * Avoid NSAIDs. * Outpatient follow up and repeat EGD will be arranged. Above has been reviewed with the patient.
[2025-04-02] MEDS: Sucralfate 1 GM TABLET PO ×2 (17:35→21:44)
[2025-04-02] MEDS: cefTRIAXone sodium 1 GM VIAL IVPUSH (17:35)
[2025-04-02] MEDS: Omeprazole 20 MG CAPSULE.DR PO (17:35)
[2025-04-02] MEDS: Albuterol Sulfate 90 MCG 8 GM INHALER 2 PUFF INHALE (21:06)
[2025-04-02] MEDS: traZODone HCL 50 MG TABLET PO (21:44)
[2025-04-02] MEDS: bisacodyL 5 MG TABLET.DR PO (21:44)
[2025-04-03] VITALS (7 sets, daily range): BP systolic 114–123; BP diastolic 54–61; PULSE 60–69; RESP 16–20; TEMP 36.2–36.8; O2SAT 92–98; BMI 38.9
[2025-04-03] MEDS: 0.9 % Sodium Chloride Flush 3 ML SYRINGE IVFLUSH ×4 (01:11→20:06)
[2025-04-03] MEDS: Morphine Sulfate 2 MG/ML CARTRIDGE 1 MG IVPUSH ×3 (01:11→23:26)
[2025-04-03] MEDS: Melatonin 3 MG TABLET 6 MG PO (01:13)
[2025-04-03] MEDS: Omeprazole 20 MG CAPSULE.DR PO ×2 (05:32→16:07)
[2025-04-03] MEDS: Metoprolol Tartrate 25 MG TABLET PO (07:54)
[2025-04-03] MEDS: Gabapentin 300 MG CAPSULE PO ×3 (07:54→20:05)
[2025-04-03] MEDS: levETIRAcetam 500 MG TABLET PO ×2 (07:54→20:17)
[2025-04-03] MEDS: guaiFENesin LA 600 MG TAB.ER.12H PO ×2 (07:54→20:05)
[2025-04-03] MEDS: Escitalopram Oxalate 5 MG TABLET PO (07:54)
[2025-04-03] MEDS: Furosemide 40 MG TABLET PO ×2 (07:54→20:06)
[2025-04-03] MEDS: Lactulose 20 GM/30 ML SOLUTION 30 GM PO ×2 (07:55→16:16)
[2025-04-03] MEDS: Benzonatate 100 MG CAPSULE 200 MG PO ×3 (07:55→20:05)
[2025-04-03] MEDS: Spironolactone 25 MG TABLET 12.5 MG PO (07:55)
[2025-04-03] MEDS: Thiamine HCL 100 MG TABLET PO (07:55)
[2025-04-03] MEDS: Sucralfate 1 GM TABLET PO ×4 (07:55→20:06)
[2025-04-03] MEDS: Loratadine 10 MG TABLET PO (07:55)
[2025-04-03] MEDS: Escitalopram Oxalate 10 MG TABLET PO (07:55)
[2025-04-03] MEDS: Multivitamin TABLET 1 TAB PO (07:55)
[2025-04-03] MEDS: Fluticasone/Umeclidinium/Vilanterol 200/62.5/25 BLST.W.DEV 1 PUFF INHALE (07:57)
[2025-04-03] MEDS: Albuterol Sulfate 90 MCG 8 GM INHALER 2 PUFF INHALE (07:57)
[2025-04-03] MEDS: Milk of Magnesia 30 ML ORAL.SUSP PO (08:08)
[2025-04-03] MEDS: oxyCODONE HCl Immed Release 5 MG TABLET PO (11:29)
--- NOTE | 2025-04-03 11:51 | HO.POSTANES ---
Post Anesthesia Evaluation Post Anesthesia Evaluation Date of Service: 04/03/25 Vital Signs: Vital Signs Temp Pulse Resp BP Pulse Ox O2 Del Method O2 Flow Rate 04/03/25 08:02 66 16 04/03/25 07:47 98.2 F 66 16 122/58 L 96 Room Air 04/03/25 03:50 98.0 F 66 18 116/56 L 96 Nasal Cannula 1 04/03/25 01:11 20 04/03/25 01:09 69 20 123/61 Anesthesia: Monitored Mental Status: Awake Pain Control: Satisfactory Nausea/Vomiting: None Hydration: Adequate Anesthesia-Related Issues: No Anes. Related Issues
--- NOTE | 2025-04-03 12:23 | MHC.CM.PN ---
Per MD rounds not medically cleared for dc at this time. May require IV ceftriaxone on dc to SNF. Urine culture pending. SNF updated. CM will continue to follow.
--- NOTE | 2025-04-03 14:56 | HO.PM.IMPN ---
Subjective Subjective Date of Service: 04/03/25 Interval History: Seen and evaluated Feels better denies fever or chills no more bleeding Hb stable Review of Systems Review of Systems: Yes all other systems are reviewed and are negative Physical Exam Vital Signs: Vital Signs: Last Vital Signs Temp 98.2 F 04/03/25 07:47 Pulse 66 04/03/25 08:02 Resp 16 04/03/25 08:02 BP 122/58 L 04/03/25 07:47 Pulse Ox 96 04/03/25 07:47 O2 Del Method Room Air 04/03/25 07:47 O2 Flow Rate 1 04/03/25 03:50 BMI result Body Mass Index 38.9 Const: Other: Constitutional : Awake, interactive, not in distress Neck : Normal inspection, Supple Cardiovascular : RRR, no JVP, trace lower extremity edema Respiratory : good bilateral air entry, no crackles, wheezes or rhonchi Gastrointestinal: soft, lax, Normal bowel sounds, Non tender Skin : Warm, Dry Neurological : Alert & oriented x3, No focal deficit Objective Data Active Medications Albuterol Sulfate (Albuterol Sulfate 90 Mcg 8 Gm Inhaler) 2 puff INHALE BID [facility] Last Admin: 04/03/25 07:57 Dose: 2 puff Documented By: CHRISTIE Albuterol/Ipratropium (Albuterol/Iprat 2.5/0.5mg 3 Ml Ampul.Neb) 3 ml INHALE RQ4H WHILE AWAKE PRN PRN Reason: Shortness of Breath/Wheezing Last Admin: 04/02/25 08:35 Dose: 3 ml Documented By: SANDIE Albuterol/Ipratropium (Albuterol/Iprat 2.5/0.5mg 3 Ml Ampul.Neb) 3 ml INHALE Q6H PRN PRN Reason: Shortness Of Breath Or Wheezing Alprazolam (Alprazolam 0.25 Mg Tablet) 0.25 mg PO BID PRN PRN Reason: Anxiety Last Admin: 04/02/25 09:06 Dose: 0.25 mg Documented By: BETI Benzonatate (Benzonatate 100 Mg Capsule) 200 mg PO TID [facility] Last Admin: 04/03/25 07:55 Dose: 200 mg Documented By: CATALINA Bisacodyl (Bisacodyl 10 Mg Supp.Rect) 10 mg AR DAILY PRN PRN Reason: Constipation Bisacodyl (Bisacodyl 5 Mg Tablet.Dr) 5 mg PO BEDTIME [facility] Last Admin: 04/02/25 21:44 Dose: 5 mg Documented By: MARCI Calcium Carbonate (Calcium Carbonate 750 Mg Tab.Chew) 750 mg PO Q4H PRN PRN Reason: Heartburn Ceftriaxone Sodium (Ceftriaxone Sodium 1 Gm Vial) 1 gm IVPUSH Q24H [facility] Last Admin: 04/02/25 17:35 Dose: 1 gm Documented By: BETI Escitalopram Oxalate (Escitalopram Oxalate 5 Mg Tablet) 5 mg PO DAILY [facility] Last Admin: 04/03/25 07:54 Dose: 5 mg Documented By: CATALINA Escitalopram Oxalate (Escitalopram Oxalate 10 Mg Tablet) 10 mg PO DAILY [facility] Last Admin: 04/03/25 07:55 Dose: 10 mg Documented By: CATALINA Fluticasone Propionate (Fluticasone Propionate Nasal 16 Gm [place]) 1 spray NOSTRIL-B BID [facility] Last Admin: 04/03/25 08:01 Dose: Not Given Documented By: CATALINA Non-Admin Reason: Med Not Available Fluticasone/Umeclidinium/Vilanterol (Fluticasone/Umeclidinium/Vilanterol 200/62.5/25 Blst.W.Dev) 1 puff INHALE RDAILY [facility] Last Admin: 04/03/25 07:57 Dose: 1 puff Documented By: CHRISTIE Furosemide (Furosemide 40 Mg Tablet) 40 mg PO BID [facility]; Protocol Last Admin: 04/03/25 07:54 Dose: 40 mg Documented By: CATALINA Gabapentin (Gabapentin 300 Mg Capsule) 300 mg PO TID [facility] Last Admin: 04/03/25 07:54 Dose: 300 mg Documented By: CATALINA Guaifenesin (Guaifenesin La 600 Mg Tab.Er.12h) 600 mg PO BID [facility] Last Admin: 04/03/25 07:54 Dose: 600 mg Documented By: CATALINA Hydroxyzine HCl (Hydroxyzine Hcl 25 Mg Tablet) 25 mg PO Q8H PRN PRN Reason: rash/itching Lactulose (Lactulose 20 Gm/30 Ml Solution) 30 gm PO TID [facility] Last Admin: 04/03/25 07:55 Dose: 30 gm Documented By: CATALINA Levetiracetam (Levetiracetam 500 Mg Tablet) 500 mg PO BID [facility] Last Admin: 04/03/25 07:54 Dose: 500 mg Documented By: CATALINA Loratadine (Loratadine 10 Mg Tablet) 10 mg PO DAILY [facility] Last Admin: 04/03/25 07:55 Dose: 10 mg Documented By: CATALINA Magnesium Hydroxide (Milk Of Magnesia 30 Ml Oral.Susp) 30 ml PO DAILY PRN PRN Reason: Constipation Last Admin: 04/03/25 08:08 Dose: 30 ml Documented By: CATALINA Melatonin (Melatonin 3 Mg Tablet) 6 mg PO BEDTIME PRN PRN Reason: Insomnia Last Admin: 04/03/25 01:13 Dose: 6 mg Documented By: ELLIOT Metoprolol Tartrate (Metoprolol Tartrate 25 Mg Tablet) 25 mg PO DAILY [facility]; Protocol Last Admin: 04/03/25 07:54 Dose: 25 mg Documented By: CATALINA Morphine Sulfate (Morphine Sulfate 2 Mg/Ml Cartridge) 1 mg IVPUSH Q3H PRN; Protocol PRN Reason: Pain, Severe (Pain Scale 7-10) Last Admin: 04/03/25 01:11 Dose: 1 mg Documented By: ELLIOT Multivitamins/Vitamin C (Multivitamin Tablet) 1 tab PO DAILY [facility] Last Admin: 04/03/25 07:55 Dose: 1 tab Documented By: CATALINA Omeprazole (Omeprazole 20 Mg Capsule.) 20 mg PO BID@0630,1630 [facility] Last Admin: 04/03/25 05:32 Dose: 20 mg Documented By: MIHAI Ondansetron HCl (Ondansetron Hcl 4 Mg/2 Ml Vial) 4 mg IVPUSH Q8H PRN PRN Reason: Nausea and Vomiting Oxycodone HCl (Oxycodone Hcl Immed Release 5 Mg Tablet) 5 mg PO Q8H PRN PRN Reason: Moderate Pain (Scale Score 5-6) Last Admin: 04/03/25 11:29 Dose: 5 mg Documented By: CATALINA Sodium Biphosphate/Sodium Phosphate (Sodium Phosphate,Alger-Dibasic 133 Ml Enema) 118 ml AR DAILY PRN PRN Reason: Constipation Sodium Chloride (0.9 % Sodium Chloride Flush 3 Ml Syringe) 3 ml IVFLUSH QSHIFT [facility] Last Admin: 04/03/25 08:00 Dose: 3 ml Documented By: CATALINA Spironolactone (Spironolactone 25 Mg Tablet) 12.5 mg PO DAILY [facility]; Protocol Last Admin: 04/03/25 07:55 Dose: 12.5 mg Documented By: CATALINA Sucralfate (Sucralfate 1 Gm Tablet) 1 gm PO QIDACHS [facility] Last Admin: 04/03/25 11:32 Dose: 1 gm Documented By: CATALINA Thiamine HCl (Thiamine Hcl 100 Mg Tablet) 100 mg PO DAILY [facility] Last Admin: 04/03/25 07:55 Dose: 100 mg Documented By: CATALINA Tizanidine HCl (Tizanidine Hcl 4 Mg Tablet) 2 mg PO Q8H PRN PRN Reason: Muscle Spasm Trazodone HCl (Trazodone Hcl 50 Mg Tablet) 50 mg PO BEDTIME [facility] Last Admin: 04/02/25 21:44 Dose: 50 mg Documented By: MARCI Labs 04/02/25 11:18 04/01/25 04:52 Labs: Laboratory Results - last 24 hr 03/31/25 16:06 Blood Type A Positive Antibody Screen NEGATIVE Crossmatch See Detail Assessment and Plan (1) Cirrhosis: Status: Acute (2) GI (gastrointestinal bleed): Status: Acute (3) Symptomatic anemia: Status: Acute Plan 79-year-old female currently residing in a group home for the last 2 years with past medical history depression/anxiety, hepatitis-C and patient completed treatment, cirrhosis, GERD, COPD secondary to history of tobacco use, chronic low back pain, bilateral hip replacements, and mobility dependent on wheelchair, constipation, history of alcohol dependence, seizure disorder on Keppra, enucleated right eye is being admitted for GI bleed likely secondary paraesophageal and splenic varices with chronic cirrhosis and history of hepatitis-C. Acute anemia secondary to GI bleed with evidence of periesophageal and splenic varices and portal hypertension s/p 1 unit of PRBCs for an H&H of 6.7 and 24.3 stool positive for occult octreotide IV push and continuous infusion started secondary to liver issues GI; EGD>showing flat varices, portal hypertensive gastropathy, oozing gave, portal hypertensive duodenopathy. Biopsies taken. Stopped octreotide, switch to oral PPI, start Carafate 10 mL q.i.d. times 14 days, complete ceftriaxone for a total of 7 days and can be switched to p.o. 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 patient currently on room air Continuous pulse ox Incentive spirometry Depression anxiety continue usual medications no history of suicidal ideations symptoms well controlled Chronic low back pain morphine IV prn DVT prophylaxis: Contraindicated secondary to GI bleed Code status via [facility] from group home: Full code patient did discuss changing to DNR DNI after this admission Quality Stroke Does the patient have a stroke diagnosis?: No Reason for No Anti-thrombotic by Day Two: Contraindicated VTE Prior VTE?: No VTE Risk Level:: Medical - moderate - high VTE Device Contraindication: N/A - Device Ordered VTE Drug Contraindication: Treatment Not Tolerated
[2025-04-03] MEDS: Heparin Sodium,Porcine Flush 50 UNITS/5 ML SYRINGE IVFLUSH ×2 (16:11→23:12)
[2025-04-03] MEDS: ALPRAZolam 0.25 MG TABLET PO (16:22)
[2025-04-03] MEDS: cefTRIAXone sodium 1 GM VIAL IVPUSH (17:46)
--- NOTE | 2025-04-03 18:34 | HO.MIDLINE_ITS ---
Midline Insertion MIDLINE INSERTION Diagnosis: UTI Indication: 1WK ABT Pertinent Labs: reviewed Technique: Using sterile technique including cap and mask, glove and drape, the right arm was prepped and draped in the usual sterile fashion of full barrier technique with CHG. Using ultrasound guidance, right basilic vein access was obtained . 4FR x 20cm single lumen nonPASV powermidline catheter trimmed to 11cm was positioned. The procedure was performed in rm 272. Ultrasound was used to document vein patency and for needle entry. A formal ultrasound picture was recorded. Vascular Irrigation Supervisor has released the line for use and it is currently dressed with a StatLock, Tegaderm, and CHG disc. Verification has been performed for blood return and line patency. Arm Circumference: 34cm Equipment: BARD PowerMidline Catheter Catheter Type: 4FR x 20CM single lumen nonPASV catheter Lot #: [id number]
[2025-04-03] MEDS: bisacodyL 5 MG TABLET.DR PO (20:05)
[2025-04-03] MEDS: traZODone HCL 50 MG TABLET PO (20:06)
[2025-04-03 23:33] LABS: Levetiracetam Keppra 47.7 mcg/mL (6.0-46.0)
[2025-04-04 03:50] VITALS: BP 120/74; PULSE 86; RESP 18; TEMP 36.8; O2SAT 93
[2025-04-04 05:22] VITALS: BMI 39.0
[2025-04-04] MEDS: Omeprazole 20 MG CAPSULE.DR PO (05:42)
[2025-04-04 07:01] LABS: MANUAL DIFF FLAG NO
[2025-04-04 07:11] LABS: Basophils Percent Auto 0.5 % (0-2); Eosinophils Absolute Auto 0.1 X10*3/uL (0.0-0.4); Eosinophils Percent Auto 3.2 % (0-4); Hematocrit 33.1 % (37.0-47.0); Hemoglobin 9.4 g/dl (12.0-16.0); Imm Gran Abs Auto 0.02 X10*3/uL (0.00-0.03); Imm Gran Pct Auto 0.5 % (0.0-0.4); Lymphocytes Absolute Auto 0.7 X10*3/uL (1.2-4.9); Lymphocytes Percent Auto 19.5 % (20-40); Mean Corpuscular HGB Conc 28.4 g/dl (31.0-35.0); Mean Corpuscular Hemoglobin 21.9 pg (27.0-33.0); Mean Corpuscular Volume 77.2 fL (80.0-98.0); Monocytes Absolute Auto 0.5 X10*3/uL (0.1-1.2); Monocytes Percent Auto 13.2 % (2-11); Neutrophils Absolute Auto 2.4 x10*3/uL (2.0-8.3); Neutrophils Percent Auto 63.1 % (45-73); Red Blood Count 4.29 X10*6/uL (4.20-5.50); Red Cell Distribution Width 19.9 % (11.0-16.0); White Blood Count 3.8 X10*3/uL (4.8-10.8)
[2025-04-04 07:13] LABS: Platelet Count 56 X10*3/uL (160-400)
[2025-04-04 07:19] LABS: Anion Gap 12 (12-20); Blood Urea Nitrogen 26 mg/dL (9-16); Carbon Dioxide 33 mmol/L (22-29); Chloride 100 mmol/L (96-108); Creatinine Clr Calc Pharmacy 45.3; Estimated Glomerular Filt Rate 48; Glucose Random 98 mg/dL (60-115); Potassium 3.8 mmol/L (3.3-5.1); Sodium 141 mmol/L (135-145)
[2025-04-04 07:20] LABS: Alanine Aminotransferase < 6 U/L (0-31); Albumin Level 3.3 g/dL (3.5-5.0); Alkaline Phosphatase 60 U/L (39-117); Aspartate Amino Transferase 33 U/L (5-31); Bilirubin Direct 0.5 mg/dL (0.0-0.5); Bilirubin Total 1.1 mg/dL (0.0-1.0); Total Protein 6.4 g/dL (6.5-8.0)
[2025-04-04 08:00] VITALS: BP 126/67; PULSE 62; RESP 16; TEMP 36.3; O2SAT 98
[2025-04-04] MEDS: Albuterol Sulfate 90 MCG 8 GM INHALER 2 PUFF INHALE (08:11)
[2025-04-04] MEDS: Fluticasone/Umeclidinium/Vilanterol 200/62.5/25 BLST.W.DEV 1 PUFF INHALE (08:11)
[2025-04-04 08:12] VITALS: PULSE 62; RESP 18; O2SAT 98
[2025-04-04] MEDS: Spironolactone 25 MG TABLET 12.5 MG PO (08:43)
[2025-04-04] MEDS: Gabapentin 300 MG CAPSULE PO (08:43)
[2025-04-04] MEDS: Escitalopram Oxalate 10 MG TABLET PO (08:43)
[2025-04-04] MEDS: Multivitamin TABLET 1 TAB PO (08:44)
[2025-04-04] MEDS: Metoprolol Tartrate 25 MG TABLET PO (08:44)
[2025-04-04] MEDS: Sucralfate 1 GM TABLET PO ×2 (08:44→11:17)
[2025-04-04] MEDS: Thiamine HCL 100 MG TABLET PO (08:44)
[2025-04-04] MEDS: Heparin Sodium,Porcine Flush 50 UNITS/5 ML SYRINGE IVFLUSH (08:44)
[2025-04-04] MEDS: Loratadine 10 MG TABLET PO (08:44)
[2025-04-04] MEDS: Furosemide 40 MG TABLET PO (08:44)
[2025-04-04] MEDS: levETIRAcetam 500 MG TABLET PO (08:44)
[2025-04-04] MEDS: Escitalopram Oxalate 5 MG TABLET PO (08:44)
[2025-04-04] MEDS: Benzonatate 100 MG CAPSULE 200 MG PO (08:44)
[2025-04-04] MEDS: guaiFENesin LA 600 MG TAB.ER.12H PO (08:45)
[2025-04-04] MEDS: 0.9 % Sodium Chloride Flush 3 ML SYRINGE IVFLUSH (08:45)
--- NOTE | 2025-04-04 10:59 | MHC.CM.PN ---
Per MD, medically cleared for dc back to [facility]. Will dc w/ midline in place for 3 days IV ceftriaxone. Will receive today's dose prior to dc. SNF aware. BLS transport scheduled for 12:30. RN, , and patient aware. LM for son/HCP per patient request to inform of transport time. IMM delivered.
[2025-04-04] MEDS: Morphine Sulfate 2 MG/ML CARTRIDGE 1 MG IVPUSH (11:17)
[2025-04-04] MEDS: cefTRIAXone sodium 1 GM VIAL IVPUSH (11:17)
--- NOTE | 2025-04-04 11:24 | P.DS_ITS ---
DS: Providers Provider Date of Service: 04/04/25 Date of admission: 03/31/25 19:19 Date of discharge: 04/04/25 Primary care physician: Antonia Celaya MD Consults: 03/31/25 21:38 Consult to Gastroenterology Routine Consulting Provider: Rosa Russell Reason for consultation: GIB cirrhosis hepatic lesion varicies Has provider been notified: No DS: Diagnosis Discharge Diagnosis (1) Cirrhosis: Status: Acute (2) GI (gastrointestinal bleed): Status: Acute (3) Symptomatic anemia: Status: Acute DS: Summary Hospital Course Hospital Course: Admission note HPI Patient is a 79-year-old female currently residing in a [place] [facility] for the last 2 years with past medical history depression/anxiety, hepatitis-C and patient completed treatment, cirrhosis, GERD, COPD secondary to history of tobacco use, chronic low back pain, bilateral hip replacements, and mobility dependent on wheelchair, constipation, history of alcohol dependence, seizure disorder on Keppra, enucleated right eye was brought in by ambulance from [place] [facility] after 2 unwitnessed falls a few days ago. Patient states she attempted to get out of bed on her own when she knew she should as she has been unable to walk since her 2nd hip replacement 1 year prior. Patient denied any hit to the head or loss of consciousness. Patient denies any syncopal or near syncopal episodes. Patient does not have diabetes and is not having issues with low blood sugar. Patient did state she has not eaten for the last 4 days due to poor appetite. CT of the head negative for any acute findings. CT of the cervical spine negative for any acute injury. No acute injury to bilateral knees with evidence of tode-io-[id number] apposition. Incidentally patient's H&H was 6.7 and 24.3. Stool positive for occult blood. CT of the abdomen noted fecal impaction, cirrhotic hepatic morphology with portal vein hypertension including splenomegaly and extensive splenorenal and paraesophageal varices. Also noted was a hypoattenuating lesion present within the right lobe of the liver measuring 2 cm stable from prior imaging back in 2022. As stated above patient does have history of hepatitis-C and received treatment. Since living in the [place] [facility] patient has had no access to alcohol. Patient currently denying any chest pain, shortness of breath at rest, abdominal pain, nausea or vomiting. Patient updated on plan of care and explanation for admission. Records indicate patient is a full code via [facility] from [place] [facility]. Hospital course The patient was treated for # Acute anemia secondary to GI bleed with evidence of periesophageal and splenic varices and portal hypertension s/p total of 2 unit of PRBCs for an Hb of 6.7 improved to 9 at day of discharge as she had stool positive for occult stoo;. Treated with octreotide IV push and continuous infusion along with PPI IV. GI evaluated the patient and did an EGD showing flat varices, portal hypertensive gastropathy, oozing gave, portal hypertensive duodenopathy. Biopsies taken and will be followed as outpatient. switched to oral PPI and started on start Carafate 10 mL q.i.d. times to finish 1 month. To complete ceftriaxone for a total of 7 days. Midline placed. she will need 3 more days of Ceftriaxone on discharge. 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 patient has ETOH history and hepatitis-C/ completed treatment.AFP low so no MRI needed. For follow up by GI. # Urinary tract infection was suspected on admission but cultures came back negative. on Ceftriaxone antibiotic. Discharge plan Continue Pantoprazole Start Carafate 1 gm 4 times a day Follow with GI for biopsy results Continue Ceftriaxone for 3 more days Time Attestation Discharge Coordination Time (in mins): 43 Quality: Safe Use of Opioids Does Pt have an Active Cancer Diagnosis on the Problem List?: No Quality: Stroke Does the patient have a stroke diagnosis?: No Physical Exam Vital Signs: Vital Signs: Last Vital Signs Temp 97.3 F 04/04/25 08:00 Pulse 62 04/04/25 08:12 Resp 18 04/04/25 08:12 BP 126/67 04/04/25 08:00 Pulse Ox 98 04/04/25 08:00 O2 Del Method Nasal Cannula 04/04/25 08:00 O2 Flow Rate 2.0 04/04/25 08:00 BMI result Body Mass Index 39.0 Const: Other: Constitutional : Awake, interactive, not in distress Neck : Normal inspection, Supple Cardiovascular : RRR, no JVP, trace lower extremity edema Respiratory : good bilateral air entry, no crackles, wheezes or rhonchi Gastrointestinal: soft, lax, Normal bowel sounds, Non tender Skin : Warm, Dry Neurological : Alert & oriented x3, No focal deficit DS: Data Data Completed and Pending Completed studies during hospitalization [Text1]: Pending at discharge 04/02/25 12:44 Surgical [PTH] Routine Procedures Assistance with Respiratory Ventilation, Less than 24 Consecutive Hours, Continuous Positive Airway Pressure (06/28/23) Labs on day of discharge: Laboratory Results - last 24 hr 03/31/25 04/04/25 19:12 06:14 WBC 3.8 L RBC 4.29 D Hgb 9.4 L D Hct 33.1 L D MCV 77.2 L MCH 21.9 L MCHC 28.4 L RDW 19.9 H Plt Count 56 L MPV Not Reportable Immature Gran % (Auto) 0.5 H Neut % (Auto) 63.1 Lymph % (Auto) 19.5 L Granite % (Auto) 13.2 H Eos % (Auto) 3.2 Baso % (Auto) 0.5 Lymph # (Auto) 0.7 L [place]ite # (Auto) 0.5 Eos # (Auto) 0.1 Baso # (Auto) 0.0 Abs Immat Gran (auto) 0.02 Absolute Neuts (auto) 2.4 Absolute Nucleated RBC 0.000 Nucleated RBC % (auto) 0.0 Sodium 141 Potassium 3.8 Chloride 100 Carbon Dioxide 33 H Anion Gap 12 BUN 26 H Creatinine 1.11 Estim Creat Clear Calc 45.3 Estimated GFR 48 Random Glucose 98 Calcium 9.0 Total Bilirubin 1.1 H Direct Bilirubin 0.5 AST 33 H ALT < 6 Alkaline Phosphatase 60 Total Protein 6.4 L Albumin 3.3 L Levetiracetam 47.7 H Imaging Chest x-ray: Radiologist's impression: CT ABd: IMPRESSION: 1. No focus of active hemorrhage identified within the bowel lumen no bowel obstruction. Two [id number] amount of stool present within the distal sigmoid colon and rectum. Component of fecal impaction may be present. 2. Cirrhotic hepatic morphology with evidence of portal venous hypertension including splenomegaly and extensive splenorenal and paraesophageal varices. 3. Indeterminate hypoattenuating lesion present within the right lobe of the liver measuring 2.0 cm, stable from prior imaging performed in 2022. This document has been electronically signed by: Vijay Martinez MD on 03/31/2025 19:08:18 Discharge Plan Discharge Anticipated Discharge Date/Time: 04/04/25 11:17 Patient Disposition: Xfer SNF Discharge Diagnosis: Blood loss anemia GI bleed Referrals: [facility] [Outside] - 1 Day (resume LTC) Antonia Celaya MD [Primary Care Provider] - 1 Week Discharge Medications: New sucralfate 1 gram Tablet 1 g PO QIDACHS Qty: 120 0RF ceftriaxone 1 gram Recon Soln 1 g IVPUSH Q24H Qty: 3 0RF Continued multivitamin Tablet 1 tab PO DAILY trazodone 50 mg Tablet 50 mg PO BEDTIME cetirizine 10 mg Tablet 10 mg PO DAILY levetiracetam [Keppra] 500 mg Tablet 500 mg PO BID thiamine HCl (vitamin B1) 100 mg Tablet 100 mg PO DAILY alprazolam [Xanax] 0.25 mg Tablet 0.25 mg PO BID PRN (Reason: Anxiety) magnesium hydroxide [Milk of Magnesia] 400 mg/5 mL Suspension 30 ml PO DAILY PRN (Reason: Constipation) bisacodyl 10 mg Suppository 10 mg LA DAILY PRN (Reason: Constipation) Rx Instructions: no BM for 8 hours after MOM pantoprazole 40 mg Tablet,Delayed Release (Dr/Ec) 40 mg PO DAILY@0630 [place] Enema 19-7 gram/118 mL Enema 118 ml LA DAILY PRN (Reason: Constipation) Rx Instructions: no BM for 8 hours after bisacodyl supp gabapentin 300 mg Capsule 300 mg PO TID bisacodyl [Dulcolax (bisacodyl)] 5 mg Tablet,Delayed Release (Dr/Ec) 5 mg PO BEDTIME furosemide 20 mg Tablet 40 mg PO BID nystatin 100,000 unit/gram Powder 1 appl TOPICAL BID PRN (Reason: redness) Rx Instructions: apply to periarea albuterol sulfate [ProAir HFA] 90 mcg/actuation Hfa Aerosol Inhaler 2 puff INHALATION BID fluticasone propionate [Flonase Allergy Relief] 50 mcg/actuation [place],Suspension 1 spray INTRANASAL BID Rx Instructions: administer into each nostril metoprolol tartrate 25 mg Tablet 25 mg PO DAILY lactulose 10 gram/15 mL Solution 45 ml PO TID Muscle Rub 15-10 % Cream 1 appl TOPICAL DAILY PRN (Reason: neck pain) Rx Instructions: apply to neck diclofenac sodium 1 % Gel 4 g TOPICAL QID PRN (Reason: Pain) Rx Instructions: apply to hips ipratropium-albuterol 0.5 mg-3 mg(2.5 mg base)/3 mL Solution For Nebulization 3 ml INHALATION Q6H PRN (Reason: Shortness Of Breath Or Wheezing) tizanidine 2 mg Tablet 2 mg PO Q8H PRN (Reason: Muscle Spasm) benzonatate 100 mg Capsule 200 mg PO TID Qty: 30 0RF guaifenesin [Mucinex] 600 mg Tablet Extended Release 12hr 600 mg PO BID Qty: 20 0RF white petrolatum-mineral oil Ointment 1 appl OPHTHALMIC (EYE) BEDTIME guaifenesin [Camryn-Tussin] 100 mg/5 mL Liquid 200 mg PO Q6H PRN (Reason: Cough) spironolactone 25 mg Tablet 12.5 mg PO DAILY hydroxyzine HCl 25 mg Tablet 25 mg PO Q8H PRN (Reason: rash/itching) escitalopram oxalate 10 mg Tablet 10 mg PO DAILY cyclosporine [Restasis] 0.05 % Dropperette 1 drp ophthalmic-Left BID escitalopram oxalate 5 mg Tablet 5 mg PO DAILY Trelegy Ellipta 200-62.5-25 mcg blister with device 1 ea inhalation DAILY oxycodone 5 mg Tablet 5 mg PO Q8H PRN (Reason: Moderate Pain (Scale Score 5-6)) Qty: 12 0RF Discharge Orders: Discharge Order (Routine); Ordered 04/04/25 Ordered By: Angelica Brooks Diet: Advance to usual diet Activity on Discharge: As tolerated Stand Alone Forms: Patient Portal Discharge page Print Language: Lao Care Plan Goals: Continue Pantoprazole Start Carafate 1 gm 4 times a day Follow with GI for biopsy results Continue Ceftriaxone for 3 more days Health Concerns: GI bleeding; oozing varices\gastropathy Plan of Treatment: Pantoprazole Carafate Assessment: as above
[2025-04-04 12:00] VITALS: BP 112/55; PULSE 58; RESP 18; TEMP 36.8; O2SAT 95
--- NOTE | 2025-04-09 17:26 | P.CDIM_ITS ---
PROVIDER RESPONSE TEXT: To clarify, the appropriate diagnosis supported by the clinical indicators: Diastolic: chronic QUERY TEXT: PHYSICIAN'S DOCUMENTATION REQUEST Date of Query: 04/04/2025 10:38 AM EDT Patient Name: Sarai Mederos Admit Date: 03/31/2025 Dear Angelica Brooks MD, A review of the medical record indicates additional documentation may be needed. Please review below and update the documentation accordingly. Clinical Indicators: ED 03/31/25 - PMH - Congestive heart failure H&P 03/31/25 - Past medical history of Congestive heart failure. BNP 224 H - Lasix 40 mg PO BID Home medication: Furosemide 40 mg PO BID. Please provide further specificity regarding the most likely type and acuity of CHF that is documente d in the Ed and the H&P: Systolic Please specify if Acute, Chronic, or Acute on chronic, or Unable to determine Diastolic Please specify if Acute, Chronic, or Acute on chronic, or Unable to determine Combined Systolic/Diastolic Please specify if Acute, Chronic, or Acute on chronic, or Unable to determine Other (explain) Clinically unable to determine (explain) Thank you, Josseline Warner, CCS, CDIS Use of terms such as suspected, likely, concern for, or probable (associated with a specific diagnosi s that is being evaluated, monitored, or treated as if it exists) are acceptable and can be coded in the inpatient se tting, when documented at the time of discharge. Please use your independent medical judgment in providing your response. THIS QUERY IS PART OF THE PERMANENT MEDICAL RECORD
--- NOTE | 2025-04-09 17:26 | P.CDIM_ITS ---
PROVIDER RESPONSE TEXT: To clarify, the appropriate diagnosis supported by the clinical indicators: Pancytopenia: suspected QUERY TEXT: PHYSICIAN'S DOCUMENTATION REQUEST Date of Query: 04/04/2025 07:40 AM EDT Patient Name: Sarai Mederos Admit Date: 03/31/2025 Dear Angelica Brooks MD, A review of the medical record indicates additional documentation may be needed. Please review below and update the documentation accordingly. Clinical Indicators: LABS: WBC 3.4 L RBC 3.49 L PLT 68 L Cirrhosis of the liver, History of Alcohol dependence and Hepatitis C, Acute Anemia. Based on the above, could you clarify which of the following is the most likely type of anemia you ar e evaluating, treating, and/or monitoring? Pancytopenia possible, resolved, suspected etc. Other specified Other (explain) Clinically unable to determine (explain) Thank you, Josseline Warner, CCS, CDIS Use of terms such as suspected, likely, concern for, or probable (associated with a specific diagnosi s that is being evaluated, monitored, or treated as if it exists) are acceptable and can be coded in the inpatient se tting, when documented at the time of discharge. Please use your independent medical judgment in providing your response. THIS QUERY IS PART OF THE PERMANENT MEDICAL RECORD
== END 2025-04-04 12:40 | disposition skilled nursing facility (03) | DRG 378 ==
LOC: HO.ED 17:12 → HO.EDOVER 19:38 → HO.IMC 04-01 07:16 → HO.S3 04-03 02:58
PROVIDERS: Internal Medicine; Nurse Practitioner Acute Care; Nurse Practitioner Family; Physician Assistant; Admitting Provider Student in an Organized Health Care Education/Training Program; Emergency Provider Emergency Medicine; PCP Internal Medicine; Visit Provider Student in an Organized Health Care Education/Training Program
PROC: 0DJ08ZZ Inspection of Upper Intestinal Tract, Via Natural or Artificial Opening Endoscopic (ICD-10-PCS; CPT 43235; principal; 2025-04-02 12:20)
DX: K31.811 Angiodysplasia of stomach and duodenum with bleeding (principal); D61.818 Other pancytopenia; K76.6 Portal hypertension; I50.32 Chronic diastolic (congestive) heart failure; D62 Acute posthemorrhagic anemia; N39.0 Urinary tract infection, site not specified; Z90.01 Acquired absence of eye; K74.60 Unspecified cirrhosis of liver; I85.10 Secondary esophageal varices without bleeding; I86.8 Varicose veins of other specified sites; K31.89 Other diseases of stomach and duodenum; Z99.3 Dependence on wheelchair; F10.21 Alcohol dependence, in remission; J44.9 Chronic obstructive pulmonary disease, unspecified; Z86.19 Personal history of other infectious and parasitic diseases; M54.59 Other low back pain; G89.29 Other chronic pain; F41.9 Anxiety disorder, unspecified; F32.A Depression, unspecified; G40.909 Epilepsy, unspecified, not intractable, without status epilepticus; Z20.822 Contact with and (suspected) exposure to COVID-19; Z79.899 Other long term (current) drug therapy
CPT/HCPCS: 0241U; 36410; 36415; 70450; 71045; 72125; 73564; 74177; 80048; 80053; 80076; 80177; 80307; 81001; 82105; 82140; 82272; 82550; 82803; 82947; 83036; 83540; 83690; 83735; 83880; 84484; 85014; 85018; 85025; 85610; 86850; 86900; 86901; 86923; 87086; 88305; 88342; 93005; 94640; 99285; C1751; J0696; J1642; J2003; J2270; J2354; J2470; J2704; P9016; Q9967

== ENCOUNTER → 2025-03-31 14:25 | Outpatient (BNV) | payer MEDICARE, MEDICAID, SELFPAY | PROVIDERS: PCP Internal Medicine; Visit Provider Radiology Diagnostic Radiology | DX: K56.41 Fecal impaction (principal); K74.60 Unspecified cirrhosis of liver; K76.89 Other specified diseases of liver; R53.1 Weakness; R41.82 Altered mental status, unspecified; M17.12 Unilateral primary osteoarthritis, left knee; J98.4 Other disorders of lung; W19.XXXA Unspecified fall, initial encounter | CPT/HCPCS: 70450; 71045; 72125; 73564; 74177 ==

== ENCOUNTER → 2025-03-31 14:26 | Outpatient (BNV) | payer MEDICARE, MEDICAID, SELFPAY | PROVIDERS: Admitting Provider Student in an Organized Health Care Education/Training Program; Emergency Provider Emergency Medicine; PCP Internal Medicine; Visit Provider Internal Medicine Cardiovascular Disease | DX: R53.1 Weakness (principal) | CPT/HCPCS: 93010 ==

== ENCOUNTER → 2025-03-31 19:19 | Outpatient (BNV) | payer MEDICARE, MEDICAID, SELFPAY | PROVIDERS: Admitting Provider Student in an Organized Health Care Education/Training Program; Emergency Provider Emergency Medicine; PCP Internal Medicine; Visit Provider Internal Medicine | DX: I85.00 Esophageal varices without bleeding (principal); K76.6 Portal hypertension; K31.89 Other diseases of stomach and duodenum; K31.819 Angiodysplasia of stomach and duodenum without bleeding | CPT/HCPCS: 43239; 43255; 99232 ==

== ENCOUNTER → 2025-03-31 19:19 | Outpatient (BNV) | payer MEDICARE, MEDICAID, SELFPAY | PROVIDERS: Admitting Provider Student in an Organized Health Care Education/Training Program; Emergency Provider Emergency Medicine; PCP Internal Medicine; Visit Provider Nurse Practitioner Family | DX: K92.2 Gastrointestinal hemorrhage, unspecified (principal) | CPT/HCPCS: 99223; 99232 ==

== ENCOUNTER 2025-05-08 06:19 | Inpatient (IN) | payer MEDICARE, MEDICAID, SELFPAY ==
[2025-05-08] VITALS (49 sets, daily range): BP systolic 69–138; BP diastolic 32–67; PULSE 83–125; RESP 12–28; TEMP 36.7–39.2; O2SAT 89–100; BMI 38.5; BMI 38.1; BMI 36.2
--- NOTE | ~2025-05-08 | CT_ITS ---
EXAMINATION: CT ABDOMEN AND PELVIS WITHOUT CONTRAST CLINICAL INFORMATION: Fever, sepsis COMPARISON: March 31, 2025 DLP: 1011 mGY*cm TECHNIQUE: Multidetector volumetric imaging was performed from the superior aspect of the liver through the pubic symphysis. Sagittal and coronal reformatted images were obtained on the technologist's workstation. This CT examination was performed using dose optimization techniques as appropriate, variously including the following: *Automated exposure control *Adjustment of mA and/or kV according to patient size (this includes techniques or standardized protocols for targeted exams where dose is matched to indication/reason for exam; i.e. extremities or head) *Use of iterative reconstruction technique FINDINGS: Motion artifacts results in mild to moderate degradation of image quality. LIVER, GALLBLADDER, AND BILIARY TREE: The liver has a nodular margin. There is a clip from cholecystectomy. Hypoattenuating liver lesion is present in the anterior right hepatic lobe, unchanged. PANCREAS: Unremarkable. SPLEEN: Enlarged measuring 13.9 cm Punctate calcification represent chronic granulomatous disease. ADRENAL GLANDS: Unremarkable. KIDNEYS AND URETERS: Kidneys are small with renal cortical scarring and thinning. BLADDER: There is a small amount of air and a catheter in the bladder. GASTROINTESTINAL TRACT: Moderate stool and gas is present in the colon with few pseudodiverticula in the descending and sigmoid colon. Appendix is not clearly demonstrated. ABDOMINAL WALL: No significant hernia is appreciated. LYMPH NODES: Normal. VASCULAR: Mild multifocal atherosclerotic calcific lesions are present. PELVIC VISCERA: Calcifications within the uterus are likely related to degenerating leiomyomas. Ovaries are unremarkable. There is no free fluid. OSSEOUS STRUCTURES: Total hip replacement is present on the right. Over a focal right hip fracture has been performed. CT/CT abdomen pelvis wo IV con IMPRESSION: Liver morphology suggests cirrhosis. Splenomegaly. Small kidneys with renal cortical thinning consistent with medical renal disease. Bladder catheter. Numerous insufficiency fractures in the thoracolumbar spine. Fleischner guidelines were followed. Electronically signed by: Brian Flynn MD 05/08/2025 04:46 PM EDT
--- NOTE | ~2025-05-08 | CT_ITS ---
EXAMINATION: CT HEAD WITHOUT CONTRAST CLINICAL INFORMATION: Altered mental status COMPARISON: March 31, 2025 TECHNIQUE: Contiguous axial imaging was performed from the skull base to vertex without intravenous administration of contrast. This CT examination was performed using dose optimization techniques as appropriate, variously including the following: *Automated exposure control *Adjustment of mA and/or kV according to patient size (this includes techniques or standardized protocols for targeted exams where dose is matched to indication/reason for exam; i.e. extremities or head) *Use of iterative reconstruction technique DLP: 708 mGY*cm FINDINGS: There is no acute ischemic change. There is no intracranial hemorrhage. Focal dystrophic calcification is again identified in the left frontal lobe. There is no mass-effect or midline shift. Basal cisterns and ventricles are within normal limits for age/cerebral volume. Orbits are symmetrical and unremarkable. Mild mucosal thickening is present in the posterior sphenoid sinuses slightly increased compared to the prior. There are no bony abnormalities. CT/CT head/brain wo IV con IMPRESSION: Mild chronic sphenoid sinus mucosal thickening, increased. No acute intracranial abnormality. Electronically signed by: Brian Flynn MD 05/08/2025 04:23 PM EDT
--- NOTE | ~2025-05-08 | XR_ITS ---
CLINICAL HISTORY: hypoxia Exam: AP portable chest x-ray. Comparison: None provided. Findings: Lungs are hypoinflated. Cardiac silhouette is mildly enlarged. Central interstitial markings are prominent. Question tiny pleural effusions. Impression: Hypoinflation with findings suggestive of edema versus bronchitis/bronchiolitis. This document has been electronically signed by: Vaibhav Izaguirre MD on 05/08/2025 08:54:50
--- NOTE | ~2025-05-08 | CT_ITS ---
EXAMINATION: CT CHEST WITHOUT CONTRAST CLINICAL INFORMATION: Fever, sepsis COMPARISON: X-ray March 31, [address] chest June 28, 2023 TECHNIQUE: Multidetector volumetric CT imaging of the chest was done. Axial MIP volume rendering provided. Sagittal and coronal reformatted images were obtained. This CT examination was performed using dose optimization techniques as appropriate, variously including the following: *Automated exposure control *Adjustment of mA and/or kV according to patient size (this includes techniques or standardized protocols for targeted exams where dose is matched to indication/reason for exam; i.e. extremities or head) *Use of iterative reconstruction technique DLP: 413 mGY*cm FINDINGS: LUNGS: Streaky airspace densities are present in the posterior base of the right lower lobe Lungs are clear otherwise. MEDIASTINUM: Chronic narrowing of the right and left mainstem bronchi are noted. Cardiac size is enlarged. CORONARY ARTERY CALCIFICATION: None visualized on this study. PLEURA: Trace right pleural fluid is noted. AXILLA: No lymphadenopathy. UPPER ABDOMEN: Nodularity scalloped contour of the liver is again identified. Cholecystectomy clip is present. OSSEOUS STRUCTURES: Degenerative vacuum phenomenon is again noted in the disc spaces in the mid to lower thoracic spine. CT/CT chest wo IV con IMPRESSION: Posterior right lower lobe pneumonia versus atelectasis. There is chronic narrowing of the right and left mainstem bronchi, unchanged since the prior study 2 years ago, of uncertain etiology. Cardiomegaly. Cirrhotic appearing liver Fleischner guidelines were followed. Electronically signed by: Brian Flynn MD 05/08/2025 04:33 PM EDT
--- NOTE | ~2025-05-08 | US_ITS ---
EXAMINATION: US ABDOMEN LIMITED CLINICAL INFORMATION: Cirrhosis. COMPARISON: CT TECHNIQUE: Real-time imaging of the liver and spleen with grayscale and color Doppler. FINDINGS: LIVER: Nodular scalloped margin of a small appearing liver is again identified. Gallbladder is surgically absent. Main portal vein is patent with a normal direction of flow and demonstrates a undulating venous waveform. The spleen measures 15.3 cm long axis. No ascites was documented. US/US abdomen limited IMPRESSION: Nodular liver contour suggests cirrhosis. No ascites was documented. Splenomegaly. Electronically signed by: Brian Flynn MD 05/08/2025 04:15 PM EDT
--- NOTE | ~2025-05-08 | US_ITS ---
CLINICAL HISTORY: swollen; r o DVT Venous duplex ultrasound left upper extremity Comparison: None provided Findings: Accessible deep venous segments are fully compressible with normal Doppler color flow and spectral tracings. IMPRESSION: 1. Negative for left upper extremity deep vein thrombosis. This document has been electronically signed by: Tim Millan MD on 05/09/2025 21:25:55
--- NOTE | 2025-05-08 06:26 | ECG_ITS ---
Test Reason : AMS Blood Pressure : */* mmHG Vent. Rate : 113 BPM Atrial Rate : 113 BPM P-R Int : 148 ms QRS Dur : 82 ms QT Int : 350 ms P-R-T Axes : 52 -13 30 degrees QTcB Int : 480 ms Sinus tachycardia with occasional Premature ventricular complexes Inferior infarct , age undetermined Anterior infarct , age undetermined Abnormal ECG When compared with ECG of 31-Mar-2025 15:02, Premature ventricular complexes are now Present Vent. rate has increased by 43 bpm Anterior infarct is now Present Inferior infarct is now Present Referred By: Jo-Ann Banegas Electronically Signed By: RHETT CONTRERAS MD
[2025-05-08] MEDS: Lactated Ringers 1,000 ML 999 ML IV (06:38)
[2025-05-08] MEDS: vancomycin/NS 2,000 MG/500 ML PLAST..BAG 250 MG IV (06:38)
[2025-05-08 06:45] LABS: MANUAL DIFF FLAG NO
[2025-05-08] MEDS: Albuterol Sulfate 7.5 MG, Albuterol Sulfate (0.083%) 2.5 MG 10 MG INHALE (06:47)
[2025-05-08 06:50] LABS: VBG HCO3 33 mmol/L (22-26); VBG O2 % Saturation 100.0 %
[2025-05-08 06:51] LABS: Venous Blood Gas Refer to POC result
[2025-05-08 06:57] LABS: Ammonia 78 umol/L (13-55)
[2025-05-08 07:03] LABS: Hematocrit 27.3 % (37.0-47.0); Hemoglobin 8.3 g/dl (12.0-16.0); Imm Gran Abs Auto 0.05 X10*3/uL (0.00-0.03); Imm Gran Pct Auto 0.8 % (0.0-0.4); Lymphocytes Absolute Auto 0.3 X10*3/uL (1.2-4.9); Mean Corpuscular HGB Conc 30.4 g/dl (31.0-35.0); Mean Corpuscular Hemoglobin 22.9 pg (27.0-33.0); Mean Corpuscular Volume 75.4 fL (80.0-98.0); NRBC Abs Auto 0.020 X10*3/uL (0.0-0.012); NRBC Pct Auto 0.3 /100WBC (0.0-0.2); Red Blood Count 3.62 X10*6/uL (4.20-5.50); White Blood Count 6.5 X10*3/uL (4.8-10.8)
[2025-05-08 07:05] LABS: Glucose, Whole Blood 173 mg/dL (60-115)
[2025-05-08 07:07] LABS: Platelet Count 46 X10*3/uL (160-400)
[2025-05-08 07:14] LABS: Alanine Aminotransferase < 6 U/L (0-31); Albumin Level 3.2 g/dL (3.5-5.0); Alkaline Phosphatase 55 U/L (39-117); Anion Gap 13 (12-20); Aspartate Amino Transferase 33 U/L (5-31); Blood Urea Nitrogen 35 mg/dL (9-16); Calcium 8.5 mg/dL (8.4-10.2); Carbon Dioxide 29 mmol/L (22-29); Chloride 103 mmol/L (96-108); Creatinine Clr Calc Pharmacy 36.3; Estimated Glomerular Filt Rate 34; Lipase 13 U/L (8-78); Magnesium 1.9 mg/dL (1.6-2.6); Potassium 3.8 mmol/L (3.3-5.1); Sodium 141 mmol/L (135-145); Total Protein 5.9 g/dL (6.5-8.0)
[2025-05-08 07:16] LABS: Troponin-I High Sensitivity 265.8 ng/L (<3.5-17.0)
[2025-05-08] MEDS: levETIRAcetam in NaCl (iso-os) 500 MG/100 ML PIGGYBACK 400 MG IV ×2 (07:24→18:13)
[2025-05-08 07:25] LABS: Procalcitonin 0.33 ng/mL
[2025-05-08 07:26] LABS: Resp Syncy Virus RNA Qual PCR NEGATIVE (Negative); SARS COV2 PCR INHOUSE NEGATIVE (Negative)
--- NOTE | 2025-05-08 07:33 | ED.AMS ---
HPI - Altered Mental Status General Chief Complaint: Altered Mental Status Stated Complaint: SEPSIS ALERT Time Seen by Provider: 05/08/25 06:20 Source: EMS and old records reviewed Mode of arrival: EMS Limitations: altered mental status History of Present Illness ED Provider: SHYAM ANDRADE narrative: 79 yo female with PMH of cirrhosis, anxiety, asthma, DM, diastolic CHF, chronic hypoxic and hypercarbic respiratory failure, GERD, HTN, morbid obesity, UTI - last culture Morganella S to Carbapenem who comes in after last being seen herself at 12am. SNF staff found her hot to touch, in bed, altered, low O2 sats EMS put her on NRB, patient only wakes to tactile and loud verbal stimuli. Patient cannot provide history. I called her HCP Christian who is her son but he lives in [place] and is now aware she is here. She is FULL CODE. SNF did not relay any further hx to EMS. MD complaint: altered mental status Onset (ago): unknown (last seen midnight) Timing confirmed by: caregiver Severity: severe Consistency of symptoms: constant Context: unknown Associated symptoms: fever, malaise and shortness of breath Treatments prior to arrival: oxygen Related Data Home Medications ?Medication ?Instructions ?Recorded ?Confirmed albuterol sulfate 90 mcg/actuation 2 puff inhalation BID 06/28/23 04/01/25 aerosol inhaler (ProAir HFA) alprazolam 0.25 mg tablet (Xanax) 0.25 mg PO BID PRN Anxiety 06/28/23 04/01/25 bisacodyl 10 mg rectal suppository 10 mg TX DAILY PRN Constipation 06/28/23 04/01/25 bisacodyl 5 mg tablet,delayed 5 mg PO BEDTIME 06/28/23 04/01/25 release (Dulcolax (bisacodyl)) cetirizine 10 mg tablet 10 mg PO DAILY 06/28/23 04/01/25 diclofenac sodium 1 % topical gel 4 g topical QID PRN Pain 06/28/23 04/01/25 fluticasone propionate 50 1 spray intranasal BID 06/28/23 04/01/25 mcg/actuation nasal spray,suspension (Flonase Allergy Relief) furosemide 20 mg tablet 40 mg PO BID 06/28/23 04/01/25 gabapentin 300 mg capsule 300 mg PO TID 06/28/23 04/01/25 ipratropium 0.5 mg-albuterol 3 mg 3 ml inhalation Q6H PRN Shortness 06/28/23 04/01/25 (2.5 mg base)/3 mL nebulization Of Breath Or Wheezing soln lactulose 10 gram/15 mL oral 45 ml PO TID 06/28/23 04/01/25 solution levetiracetam 500 mg tablet 500 mg PO BID 06/28/23 04/01/25 (Keppra) magnesium hydroxide 400 mg/5 mL 30 ml PO DAILY PRN Constipation 06/28/23 04/01/25 oral suspension (Milk of Magnesia) methyl salicylate 15 %-menthol 10 1 appl topical DAILY PRN neck pain 06/28/23 04/01/25 % topical cream (Muscle Rub) metoprolol tartrate 25 mg tablet 25 mg PO DAILY 06/28/23 04/01/25 multivitamin 1 tab PO DAILY 06/28/23 04/01/25 nystatin 100,000 unit/gram topical 1 appl topical BID PRN redness 06/28/23 04/01/25 powder pantoprazole 40 mg tablet,delayed 40 mg PO DAILY@0630 06/28/23 04/01/25 release sodium phosphates 19 gram-7 118 ml TX DAILY PRN Constipation 06/28/23 04/01/25 gram/118 mL enema (Fleet Enema) thiamine HCl (vitamin B1) 100 mg 100 mg PO DAILY 06/28/23 04/01/25 tablet tizanidine 2 mg tablet 2 mg PO Q8H PRN Muscle Spasm 06/28/23 04/01/25 trazodone 50 mg tablet 50 mg PO BEDTIME 06/28/23 04/01/25 cyclosporine 0.05 % eye drops in a 1 drp ophthalmic-Left BID 04/01/25 04/01/25 dropperette (Restasis) escitalopram oxalate 10 mg tablet 10 mg PO DAILY 04/01/25 04/01/25 escitalopram oxalate 5 mg tablet 5 mg PO DAILY 04/01/25 04/01/25 fluticasone fur. 200 mcg-umeclid 1 ea inhalation DAILY 04/01/25 04/01/25 62.5 mcg-vilant 25 mcg inhalat.powder (Trelegy Ellipta) guaifenesin 100 mg/5 mL oral 200 mg PO Q6H PRN Cough 04/01/25 04/01/25 liquid (Camryn-Tussin) hydroxyzine HCl 25 mg tablet 25 mg PO Q8H PRN rash/itching 04/01/25 04/01/25 spironolactone 25 mg tablet 12.5 mg PO DAILY 04/01/25 04/01/25 white petrolatum-mineral oil eye 1 appl ophthalmic (eye) BEDTIME 04/01/25 04/01/25 ointment Previous Rx's ?Medication ?Instructions ?Recorded benzonatate 100 mg capsule 200 mg (2 x 100 mg) PO TID #30 caps 07/01/23 guaifenesin 600 mg tablet, 600 mg PO BID #20 tabs 07/01/23 extended release 12 hr (Mucinex) ceftriaxone 1 gram solution for 1 g IVPUSH Q24H #3 ea 04/04/25 injection oxycodone 5 mg tablet 5 mg PO Q8H PRN Moderate Pain 04/04/25 (Scale Score 5-6) #12 tabs sucralfate 1 gram tablet 1 g PO QIDACHS #120 tabs 04/04/25 Allergies Allergy/AdvReac Type Severity Reaction Status Date / Time acetaminophen (From Tylenol) Allergy Unknown Verified 05/08/25 06:32 Review of Systems Review of Systems: ROS unable to be obtained due to altered mental status [facility] Past Medical History Attestation statement: The following information was validated with the patient. Source: old records reviewed Medical History Cirrhosis FH: cholecystectomy Hepatitis C Splenomegaly Type 2 diabetes mellitus Morbid obesity CHF (congestive heart failure) Surgical History H/O enucleation of right eyeball Hx of appendectomy History of hip replacement Social History Social History Household Members: None Housing: [facility] Do you presently have visiting nurse or other home services: Yes Unable to assess alcohol history related to: Unable to respond Alcohol intake: former Patient Tobacco Use Status: Former Tobacco user Tobacco use type: Cigarette Cigarette Packs Per Day: 1 Cigarettes Per Day: 20.0 Years Smoked: 30 Smoked in Last 30 Days: No Second Hand Smoke Exposure: No Use of substances other than those prescribed or required for medical reasons: Unable to respond Advance Directives: Yes Advance Directives on File: Yes Advance Directives Date on File: 08/29/23 service: No Physical Exam ED Vital Signs: Vital Signs - 24 hr 05/08/25 06:27 05/08/25 06:44 05/08/25 06:50 Temperature 101.5 F H Pulse Rate 122 H 113 H 112 H Respiratory Rate 19 18 17 Blood Pressure 115/48 L 101/41 L Pulse Oximetry 96 Oxygen Delivery Method Oxymask Oxygen Flow Rate 05/08/25 06:53 05/08/25 07:17 05/08/25 07:22 Temperature 102.5 F H Pulse Rate 116 H 112 H 112 H Respiratory Rate 18 Blood Pressure 77/34 L 77/34 L Pulse Oximetry 96 Oxygen Delivery Method Oxymask Oxygen Flow Rate 4 05/08/25 07:25 05/08/25 07:35 05/08/25 07:45 Temperature 101.3 F H Pulse Rate 110 H 110 H 105 H Respiratory Rate 26 H 28 H Blood Pressure 69/32 L 82/35 L 84/39 L Pulse Oximetry 96 98 Oxygen Delivery Method Oxymask Oxymask Oxygen Flow Rate 4 4 05/08/25 07:46 05/08/25 07:52 05/08/25 08:07 Temperature Pulse Rate 106 H 104 H Respiratory Rate Blood Pressure 84/39 L 90/40 L 92/40 L Pulse Oximetry Oxygen Delivery Method Oxygen Flow Rate 05/08/25 08:16 05/08/25 08:26 05/08/25 08:34 Temperature Pulse Rate 103 H 103 H 102 H Respiratory Rate 28 H Blood Pressure 99/44 L 96/50 L 89/41 L Pulse Oximetry 94 94 Oxygen Delivery Method Oxymask Oxymask Oxygen Flow Rate 4 4 05/08/25 08:42 05/08/25 08:44 05/08/25 08:55 Temperature 100.2 F 99.9 F Pulse Rate 101 H 101 H 99 Respiratory Rate 13 Blood Pressure 98/45 L 96/43 L 100/45 L Pulse Oximetry 97 97 Oxygen Delivery Method Room Air Oxymask Oxygen Flow Rate 4 05/08/25 09:02 05/08/25 09:21 05/08/25 09:25 Temperature 99.7 F 99.7 F Pulse Rate 99 100 99 Respiratory Rate 13 24 H Blood Pressure 98/48 L 108/50 L 100/48 L Pulse Oximetry 96 97 Oxygen Delivery Method Room Air Oxymask Oxygen Flow Rate 4 05/08/25 09:42 05/08/25 09:57 05/08/25 10:34 Temperature 99.7 F Pulse Rate 98 97 101 H Respiratory Rate 14 14 Blood Pressure 103/48 L 98/47 L Pulse Oximetry 96 Oxygen Delivery Method Room Air Oxygen Flow Rate BMI result Body Mass Index 38.1 Appearance: Somnolent arouses to painful tactile and loud verbal stimuli. Moderate acute distress. Eyes: Pupils equal, round and reactive to light. ENT: Pharynx dry MM Neck: Normal inspection. Neck supple. CVS: tachycardic heart rate and rhythm. Pulses normal. Respiratory: No respiratory distress. Breath sounds L base diminished Abdomen: Soft and nontender. Skin: Skin warm and hot to touch Normal skin color. Normal skin turgor. Extremities: 1-2+ pitting edema Neuro: cannot participate but withdraws from painful stimuli. Course Course Course Narrative: no response to fluids IV levophed and albumin ordered. given her hx of GIB, cirrhosis I do not feel comfortable giving IV toradol or aspirin she cannot tolerate oral meds right now - IV tylenol ordered son and recc states unknown lactulose rectal ordered as well. Reevaluation(s) Reevaluation #1: focused exam for sepsis performed at 10am signed out to Dr. Alvarado pending workup 841am Medications Administered Generic Name Dose Route Start Last Admin Trade Name Freq PRN Reason Stop Dose Admin Norepinephrine Bitartrate 8 mg in 250 mls @ 0 mls/hr 05/08/25 07:15 05/08/25 09:57 Levophed IVCONT 0.21 mcg/kg/min .Q0M SCOUT 40.04 mls/hr Protocol Titration Per Protocol Discontinued Medications Generic Name Dose Route Start Last Admin Trade Name Freq PRN Reason Stop Dose Admin Albuterol Sulfate 7.5 mg/ 10 mg 05/08/25 06:33 05/08/25 06:47 Albuterol Sulfate 2.5 mg INHALE 05/08/25 06:34 10 mg ONCE ONE Administration Albuterol Sulfate 2.5 mg/ 0 mg 05/08/25 10:29 05/08/25 10:33 Albuterol/Ipratropium 3 ml INHALE 05/08/25 10:30 1 dose ONCE ONE Administration Ertapenem 1 gm 05/08/25 06:25 05/08/25 06:38 Ertapenem Sodium 1 Gm Vial IVPUSH 05/08/25 06:26 1 gm ONCE ONE Administration Lactated Ringer's 1,000 mls @ 999 mls/hr 05/08/25 06:25 05/08/25 07:26 Lr IV 05/08/25 07:25 Infused .Q1H1M ONE Infusion Acetaminophen 1,000 mg in 100 mls @ 400 mls/hr 05/08/25 06:25 05/08/25 07:12 Ofirmev IV 05/08/25 06:39 Infused ONCE ONE Infusion Vancomycin HCl 2,000 mg in 500 mls @ 250 mls/hr 05/08/25 06:25 05/08/25 08:40 Vancomycin/Ns IV 05/08/25 08:24 Infused ONCE ONE Infusion Levetiracetam 500 mg in 100 mls @ 400 mls/hr 05/08/25 06:54 05/08/25 07:47 Keppra IV 05/08/25 07:08 Infused ONCE ONE Infusion Albumin Human 100 mls @ 133.333 mls/hr 05/08/25 07:15 05/08/25 09:17 Kedbumin 25 % IV 05/08/25 08:59 Infused Q1H SCOUT Infusion Medical Decision Making Medical Decision Making [facility] Narrative: 79 yo female with PMH of cirrhosis, anxiety, asthma, DM, diastolic CHF, chronic hypoxic and hypercarbic respiratory failure, GERD, HTN, morbid obesity, UTI now here with signs of sepsis and unknown source as history is very limited - based off prior cultures ertapenem ordered, vancomycin, h[place] CT scans for her additional AMS which could be sepsis she will also need ammonia and VBG. I have ordered gentle fluids due to concern for volume overload. I plan to contact ICU. Her HCP son in [place] is aware. Broad abx and sepsis protocol ordered. Differential Diagnosis Differential Diagnoses: The differential diagnosis associated with the presentation includes UTI, sepsis, pneumonia Admission/Observation Consideration of admission/observation: Escalation of care including admission/observation considered needs ICU level of care Consult Healthcare Provider Management of the patient was discussed with: [place] Dr. Hughes aware will admit see patient notified [id number] Lab Data MDM Lab Attestation statement: I reviewed the patient's lab results. 05/08/25 06:32 05/08/25 06:32 Labs: Lab Results 05/08/25 05/08/25 05/08/25 Range/Units 06:32 06:45 06:50 WBC 6.5 (4.8-10.8) X10*3/uL RBC 3.62 L (4.20-5.50) X10*6/uL Hgb 8.3 L (12.0-16.0) g/dl Hct 27.3 L (37.0-47.0) % MCV 75.4 L (80.0-98.0) fL MCH 22.9 L (27.0-33.0) pg MCHC 30.4 L (31.0-35.0) g/dl RDW 18.8 H (11.0-16.0) % Plt Count 46 L (160-400) X10*3/uL MPV Not Reportable Immature Gran % (Auto) 0.8 H (0.0-0.4) % Neut % (Auto) 83.8 H (45-73) % Lymph % (Auto) 3.9 L (20-40) % [place] % (Auto) 11.5 H (2-11) % Eos % (Auto) 0.0 (0-4) % Baso % (Auto) 0.0 (0-2) % Lymph # (Auto) 0.3 L (1.2-4.9) X10*3/uL [place] # (Auto) 0.7 (0.1-1.2) X10*3/uL Eos # (Auto) 0.0 (0.0-0.4) X10*3/uL Baso # (Auto) 0.0 (0.0-0.2) X10*3/uL Abs Immat Gran (auto) 0.05 H (0.00-0.03) X10*3/uL Absolute Neuts (auto) 5.4 (2.0-8.3) x10*3/uL Absolute Nucleated RBC 0.020 H (0.0-0.012) X10*3/uL Nucleated RBC % (auto) 0.3 H (0.0-0.2) /100WBC VBG pH 7.49 H (7.32-7.43) VBG pCO2 43 mmHg VBG pO2 162 mmHg VBG HCO3 33 H (22-26) mmol/L VBG O2 Saturation 100.0 % VBG Base Excess 9.0 mmol/L Sodium 141 (135-145) mmol/L Potassium 3.8 (3.3-5.1) mmol/L Chloride 103 (96-108) mmol/L Carbon Dioxide 29 (22-29) mmol/L Anion Gap 13 (12-20) BUN 35 H (9-16) mg/dL Creatinine 1.48 H (0.5-1.4) mg/dL Estim Creat Clear Calc 36.3 Estimated GFR 34 POC Glucose 173 H (60-115) mg/dL Random Glucose 193 H (60-115) mg/dL Lactic Acid 1.5 (0.5-2.0) mmol/L Calcium 8.5 (8.4-10.2) mg/dL Magnesium 1.9 (1.6-2.6) mg/dL Total Bilirubin 1.7 H (0.0-1.0) mg/dL Direct Bilirubin 0.7 H (0.0-0.5) mg/dL AST 33 H (5-31) U/L ALT < 6 (0-31) U/L Alkaline Phosphatase 55 (39-117) U/L Ammonia 78 H (13-55) umol/L Total Creatine Kinase 23 L (26-140) U/L Troponin I High Sens 265.8 H* D (<3.5-17.0) ng/L B-Natriuretic Peptide 415 H (<100) pg/mL Total Protein 5.9 L (6.5-8.0) g/dL Albumin 3.2 L (3.5-5.0) g/dL Lipase 13 (8-78) U/L Procalcitonin 0.33 ng/mL Urine Color Urine Appearance Urine pH (5.0-9.0) Ur Specific [place] (1.005-1.025) Urine Protein (Neg-Trace) mg/dL Urine Glucose (UA) (Negative) mg/dL Urine Ketones (Negative) mg/dL Urine Blood (Negative) Urine Nitrite (Negative) Ur Leukocyte Esterase (Negative) Urine RBC (0-2) /HPF Urine WBC (0-5) /HPF Ur Squamous Epith Cells (0-2) /HPF Urine Bacteria (None Seen) Hyaline Casts (0-2) /LPF Urine Opiates Screen (Not Detect) Ur Buprenorphine Scrn (Not Detect) ng/mL Ur Oxycodone Screen (Not Detect) ng/mL Urine Methadone Screen (Not Detect) ng/mL Urine Fentanyl Screen (Not Detect) Ur Barbiturates Screen (Not Detect) Ur Phencyclidine Scrn (Not Detect) Ur Amphetamines Screen (Not Detect) U Benzodiazepines Scrn (Not Detect) Urine Cocaine Screen (Not Detect) U Marijuana (THC) Screen (Not Detect) Ethyl Alcohol < 10 mg/dL Influenza Type A (PCR) NEGATIVE (Negative) Influenza Type B (PCR) NEGATIVE (Negative) RSV RNA Qual (PCR) NEGATIVE (Negative) SARS-CoV-2 RNA (RT-PCR) NEGATIVE (Negative) 05/08/25 05/08/25 Range/Units 07:43 08:52 WBC (4.8-10.8) X10*3/uL RBC (4.20-5.50) X10*6/uL Hgb (12.0-16.0) g/dl Hct (37.0-47.0) % MCV (80.0-98.0) fL MCH (27.0-33.0) pg MCHC (31.0-35.0) g/dl RDW (11.0-16.0) % Plt Count (160-400) X10*3/uL MPV Immature Gran % (Auto) (0.0-0.4) % Neut % (Auto) (45-73) % Lymph % (Auto) (20-40) % [place] % (Auto) (2-11) % Eos % (Auto) (0-4) % Baso % (Auto) (0-2) % Lymph # (Auto) (1.2-4.9) X10*3/uL [place] # (Auto) (0.1-1.2) X10*3/uL Eos # (Auto) (0.0-0.4) X10*3/uL Baso # (Auto) (0.0-0.2) X10*3/uL Abs Immat Gran (auto) (0.00-0.03) X10*3/uL Absolute Neuts (auto) (2.0-8.3) x10*3/uL Absolute Nucleated RBC (0.0-0.012) X10*3/uL Nucleated RBC % (auto) (0.0-0.2) /100WBC VBG pH (7.32-7.43) VBG pCO2 mmHg VBG pO2 mmHg VBG HCO3 (22-26) mmol/L VBG O2 Saturation % VBG Base Excess mmol/L Sodium (135-145) mmol/L Potassium (3.3-5.1) mmol/L Chloride (96-108) mmol/L Carbon Dioxide (22-29) mmol/L Anion Gap (12-20) BUN (9-16) mg/dL Creatinine (0.5-1.4) mg/dL Estim Creat Clear Calc Estimated GFR POC Glucose (60-115) mg/dL Random Glucose (60-115) mg/dL Lactic Acid (0.5-2.0) mmol/L Calcium (8.4-10.2) mg/dL Magnesium (1.6-2.6) mg/dL Total Bilirubin (0.0-1.0) mg/dL Direct Bilirubin (0.0-0.5) mg/dL AST (5-31) U/L ALT (0-31) U/L Alkaline Phosphatase (39-117) U/L Ammonia (13-55) umol/L Total Creatine Kinase (26-140) U/L Troponin I High Sens 374.9 H* (<3.5-17.0) ng/L B-Natriuretic Peptide (<100) pg/mL Total Protein (6.5-8.0) g/dL Albumin (3.5-5.0) g/dL Lipase (8-78) U/L Procalcitonin ng/mL Urine Color Yellow Urine Appearance Clear Urine pH 6.0 (5.0-9.0) Ur Specific [place] 1.015 (1.005-1.025) Urine Protein Negative (Neg-Trace) mg/dL Urine Glucose (UA) Negative (Negative) mg/dL Urine Ketones Negative (Negative) mg/dL Urine Blood Negative (Negative) Urine Nitrite Negative (Negative) Ur Leukocyte Esterase Trace H (Negative) Urine RBC 0-2 (0-2) /HPF Urine WBC 0-5 (0-5) /HPF Ur Squamous Epith Cells 0-2 (0-2) /HPF Urine Bacteria 3+ (None Seen) Hyaline Casts 3-5 (0-2) /LPF Urine Opiates Screen Not Detected (Not Detect) Ur Buprenorphine Scrn Not Detected (Not Detect) ng/mL Ur Oxycodone Screen Not Detected (Not Detect) ng/mL Urine Methadone Screen Not Detected (Not Detect) ng/mL Urine Fentanyl Screen Not Detected (Not Detect) Ur Barbiturates Screen Not Detected (Not Detect) Ur Phencyclidine Scrn Not Detected (Not Detect) Ur Amphetamines Screen Not Detected (Not Detect) U Benzodiazepines Scrn POSITIVE H (Not Detect) Urine Cocaine Screen Not Detected (Not Detect) U Marijuana (THC) Screen Not Detected (Not Detect) Ethyl Alcohol mg/dL Influenza Type A (PCR) (Negative) Influenza Type B (PCR) (Negative) RSV RNA Qual (PCR) (Negative) SARS-CoV-2 RNA (RT-PCR) (Negative) Independent Interpretation I performed an independent interpretation of an: EKG and Plain X-Ray (? L retrocardiac opacity) Interpretation: Rate: 113 Rhythm: sinus tach [place]: left Normal P waves. Normal JANE. Normal QRS complex. Poor R wave progression ST T wave : no WILLIAM qTC: 480 prior studies: no acute ischemia The study has been interpreted contemporaneously by me. . Independent Historian Clinical information obtained from an independent historian. History obtained from or confirmed by: EMS and Other (son) External Record Review External record reviewed: Inpatient record and Outpatient record Procedures Lumbar Puncture Time Out Performed: Yes Patient Position: upright Skin Prep: Povidone-Iodine 1% Local Anesthetic: lidocaine 1% Amount of anesthesia used (mL): 3 Spinal Needle Gauge: 22G Interspace Used: L4-L5 Fluid Initially Obtained: clear Complications: none Critical Care Time Critical Care Time Critical Care Time: Yes Total Critical Care Time: 65 Attestation: Time is exclusive of separately billable procedures. Time includes: direct patient care, patient reassessment, coordination of patient care, interpretation of data (laboratory data, pulse oximetry, arterial blood gases and chest xrays), review of patient's medical records, medical consultation and documentation of patient care. sepsis protocol, pressors. Procedures excluded from critical care time: electrocardiography. I attest to this time spent taking care of the patient Discharge Plan Discharge Clinical Impression: Hypoxia, Delirium due to general medical condition, Elevated troponin Sepsis Qualifiers: Sepsis type: sepsis due to unspecified organism Sepsis acute organ dysfunction status: with acute organ dysfunction Severe sepsis acute organ dysfunction type: encephalopathy Severe sepsis shock status: unspecified Qualified Code(s): A41.9 - Sepsis, unspecified organism Patient Disposition: Admitted As Inpatient Print Language: Armenian Sepsis Bolus Exclusion Sepsis Bolus Exclusion CHF/Renal Failure This patient met severe sepsis criteria due to the following condition(s):: Hypotension In my clinical judgement the administration of 30 ml/kg of crystalloid would be detrimental to this patient due to the patient's following conditions:: NYHA class III or IV Heart Failure(symptoms with low exertion or rest) and Concern for fluid overload Replace the 30 mls/kg with (Zero amount not acceptable and all fluids for severe sepsis must be given at GREATER than 125 mls/hr) Crystalloids amount given in mls: (rate must be at least 150cc/hr): 1,000 Colloids amount given in mls:: 133
[2025-05-08] MEDS: Albumin Human 25 % 100 ML 133.33 ML IV ×2 (07:40→08:32)
--- NOTE | 2025-05-08 07:48 | PC.NURSE ---
79 F presents to ED with hypotensive, AMS/ decreased responsiveness. Pt is lethargic, febrile, tachycardic, and on 3.5L oximask. Pt is only responsive to severe painful stimuli. R eye non-existent, L eye very sluggish, dilated. Pt sounds congested in bilateral lungs. Morales in place, draining. Pt recieved 1L LR but 30mg/kg order never placed. pt recieved abx and is on norepinephrine and albumin for hypotension.
[2025-05-08 07:57] LABS: Appearance Urine Clear; Glucose Urine UA Negative (Negative); PH 6.0 (5.0-9.0); Specific Gravity - Urine 1.015 (1.005-1.025); UMIC TRIGGER UACC YES
--- NOTE | 2025-05-08 08:17 | PC.NURSE ---
pt is currently in ct
--- OUTSIDE RECORDS SUMMARY | 2025-05-08 08:39 | XMS_ITS | Clinical Summary ---
Author Organization [facility] Address [address] [place] [address] Care Team Providers Care Clinical Practitioner Name Role Phone Javier Villalba MD Primary Care Provider [phone] Allergies Active Allergy Reactions Criticality Noted Date Comments Tuberculin Purified Protein Derivative 02/22/2022 Acetaminophen 02/22/2022 Medications Medication Sig Dispensed Refills Start Date End Date Status albuterol (PROVENTIL) (2.5 MG/3ML) 0.083% nebulizer solution Inhale 1 vial into the lungs. 0 Active albuterol (PROAIR HFA) 108 (90 Base) MCG/ACT inhaler Inhale 2 puffs into the lungs. 0 11/09/2017 Active PROAIR HFA 108 (90 Base) MCG/ACT inhaler INL 2 PUFFS INTO THE LUNGS Q 4 TO 6 H PRF SOB OR WHEEZING 0 12/24/2019 Active ALPRAZolam (XANAX) 0.5 MG tablet Take 0.5 mg by mouth. 0 08/28/2019 Active vitamin C (ASCORBIC ACID) 500 MG tablet TK 1 T PO BID 0 11/15/2019 Ac tive bisacodyl (DULCOLAX) [address] 10 mg rectally. 0 08/14/2018 Active escitalopram (LEXAPRO) 20 MG tablet Take 20 mg by mouth. 0 11/13/2018 Active FEROSUL 325 (65 Fe) MG tablet TK 1 T PO D WITH BREAKFAST AND ORANGE JUICE 0 11/15/2019 Active fluticasone-salmeterol (ADVAIR) 250-50 MCG/DOSE DISKUS Inhale 1 puff into the lungs. 0 02/15/2020 Active WIXELA INHUB 250-50 MCG/DOSE DISKUS INL 1 PUFF INTO THE LUNGS BID 0 12/24/2019 Active furosemide (LASIX) 20 MG tablet TAKE 1 TABLET BY MOUTH TWICE DAILY(8AM& 3PM) 0 02/15/2020 Active furosemide (LASIX) 40 MG tablet Take 60 mg by mouth. 0 08/14/2018 Active hydrOXYzine (ATARAX) 10 MG tablet TAKE 1 TABLET BY MOUTH THREE TIMES DAILY NEEDED FOR ANXIETY 0 10/05/2017 Active ibuprofen (ADVIL,MOTRIN) 400 MG tablet TAKE 1 TABLET BY MOUTH FOUR TIMES DAILY NEEDED FOR PAIN 0 04/13/2019 Active ipratropium-albuterol (DUO-NEB) 0.5-2.5 mg/mL nebulizer Inhale 3 mL into the lungs. 0 08/02/2019 Active loratadine (CLARITIN) 10 MG tablet Take 10 mg by mouth. 0 02/15/2020 Active naproxen (NAPROSYN) 500 MG tablet Take 500 mg by mouth. 0 05/31/2019 Active nicotine (NICODERM CQ) 21 MG/24HR Place 1 patch onto the skin. 0 03/20/2019 Active ondansetron (ZOFRAN-ODT) 4 MG disintegrating tablet DIS ONE T PO Q 6 H PRN NV 0 01/04/2020 Active pantoprazole (PROTONIX) 20 MG tablet Take 20 mg by mouth. 0 02/15/2020 Active QUEtiapine (SEROquel) 100 MG tablet Take 100 mg by mouth. 0 11/13/2018 Active spironolactone (ALDACTONE) tablet 50 mg TK 1 T PO D 0 11/22/2019 Active tiotropium (SPIRIVA) [address] 18 mcg into inhaler and inhale. 0 02/15/2020 Active SPIRIVA HANDIHALER 18 MCG inhalation capsule INL THE CONTENTS OF 1 C VIA HANDIHALER ONCE D 0 12/24/2019 Active potassium chloride ER (K-DUR,KLOR-CON) tablet 20 mEq Take 20 mEq by mouth. 0 04/16/2020 Active Family History Medical History Relation Name Comments Diabetes Father Diabetes Sister Relation Name Status Comments Father Sister Social History Tobacco Use Types Packs/Day Years Used Date Smoking Tobacco: Former Cigarettes Q uit: 11/2021 Alcohol Use Standard Drinks/Week Comments Not Currently 0 (1 standard drink = 0.6 oz pur e alcohol) Sex and Gender Information Value Date Recorded Sex Assigned at Not on file Gender Identity Not on file Sexual Orientation Not on file Last Filed Vital Signs Vital Sign Reading Time Taken Comments Blood Pressure - - Pulse - - Temperature - - Respiratory Rate - - Oxygen Saturation - - Inhaled Oxygen Concentration - - Weight 72.6 kg (160 lb) 02/19/2020 9:57 AM EDT Height 157.5 cm (5' 2 ) 02/19/2020 9:57 AM EDT Body Mass Index 29.26 02/19/2020 9:57 AM EDT Plan of Treatment Health Maintenance Due Date Last Done Comments Hepatitis C Screening 1945 COVID-19 Vaccine (#1) 03/29/1946 Depression Screening 1958 Preventative Health Evaluation 1964 Shingrix-Zoster Vaccine (1 of 2) 1996 Fall Risk Assessment 2011 Osteoporosis Screening (DEXA Scan) 2011 RSV Adult > 60+ Yrs or (1 - 1-dose 75+ series) 2021 Influenza Vaccine (Season Ended) 2025 08/25/2018, 09/07/2017, 09/23/2016, Additional history exists DTap / Tdap / Td (2 - Td or Tdap) 01/10/2029 01/10/2019, 08/25/2018 Pneumococcal Vaccine Completed 08/25/2018, 10/10/20 15 Hepatitis B Vaccines Aged Out No long er eligible based on patient's age to complete this topic RSV Ped < 20 months Aged Out No longe r eligible based on patient's age to complete this topic Care Teams Clinical Practitioner Relationship Specialty Start Date End Date Javier Villalba MD [address] [place] [address] PCP - General Internal Medicine 10/24/19
--- OUTSIDE RECORDS SUMMARY | 2025-05-08 08:39 | XMS_ITS | Encounter Summary ---
Author Organization [facility] Address [address] [place] [address] Care Team Providers Care Cable Mock Up Assembler Name Role Phone Antonia Celaya MD Primary Care Provider + Encounter Details Date Type Department Care Team (Late st Contact Info) Description 12/14/2024 Lab Requisition [facility] - Main Lab [address] [place] [address] Antonia Celaya MD [address] [facility] [address] [place], [place] [id number] Other specified polyneuropathies Social History Tobacco Use Types Packs/Day Years Used Date Smoking Tobacco: Some Days Cigarettes 0.3 48.6 Started: 1975 Smokeless Tobacco: Never Alcohol Use Standard Drinks/Week Comments No 0 (1 standard drink = 0.6 oz pur e alcohol) Comments Unknown Sex and Gender Information Value Date Recorded Sex Assigned at Not on file Legal Sex Female 8:58 AM EST Gender Identity Not on file Sexual Orientation Not on file documented as of this encounter Plan of Treatment Not on file documented as of this encounter Procedures Procedure Name Priority Date/Time Associated Diagnosis Comments AMMONIA Routine 12/17/2024 10:20 AM EST Other specified polyneuropathies documented in this encounter Results * (ABNORMAL) Ammonia (12/17/2024 10:20 AM EST) Ammonia 45(H) 11 - 35 mcmol/L LAB CHEMISTRY METHOD 12/17/2024 12:12 PM EST [facility] ([facility]) [facility] Blood Venous blood specimen / Unknown Venipuncture / Unknown 12/17/2024 10:20 AM EST 12/17/2024 11:53 AM EST Antonia Celaya MD LAB BLOOD ORDERABLES Fin al Result [facility] ([facility]) [facility] [address] [place] [address], documented in this encounter Visit Diagnoses Diagnosis Other specified polyneuropathies documented in this encounter Additional Health Concerns Infection Onset Date Last Indicated Resolved Time Influenza 01/11/2025 01/11/2025 02/04/2025 7:05 PM EDT documented as of this encounter Care Teams Cable Mock Up Assembler Relationship Specialty Start Date End Date Antonia Celaya MD [address] [place] [id number] PCP - General Family Medicine 11/11/24 documented as of this encounter
--- OUTSIDE RECORDS SUMMARY | 2025-05-08 08:39 | XMS_ITS | Clinical Summary ---
Author Organization [facility] Address [address] [address] Care Team Providers Care Computer Network Specialist Name Role Phone Alex Chappell NP Primary Care Provider [phone] Medications ALPRAZolam (XANAX) 0.5 MG tablet Take 0.5 mg by mouth 9 Active albuterol HFA (ProAir HFA) 108 (90 Base) MCG/ACT inhaler INL 2 PUFFS INTO THE LUNGS Q 4 TO 6 H PRF SOB OR WHEEZING 8 Active albuterol (2.5 MG/3ML) 0.083% nebulizer solution Inhale 1 vial Active ascorbic acid (VITAMIN C) 500 MG tablet Take by mouth 2 (two) times a day 0 Active bisacodyl (DULCOLAX) 10 MG suppository Insert 10 mg into the rectum 8 Active cefpodoxime (VANTIN) 200 MG tablet Take 200 mg by mouth 2 (two) times a day 1 Active Diclofenac Sodium 1 % gel APPLY EXTERNALLY TO THE AFFECTED AREA TWICE DAILY 1 Active doxycycline (VIBRAMYCIN) 100 MG capsule Take 100 mg by mouth 2 (two) times a day 1 Active escitalopram (LEXAPRO) 20 MG tablet Take 20 mg by mouth 1 Active ferrous sulfate 325 (65 Fe) MG tablet TK 1 T PO D WITH BREAKFAST AND ORANGE JUICE 0 Active fluticasone-salm eterol (Wixela Inhub) 250-50 MCG/DOSE diskus inhaler INL 1 PUFF INTO THE LUNGS BID 0 Active Trelegy Ellipta 200-62.5-25 MCG/INH aerosol powder 1 Active furosemide (LASIX) 20 MG tablet Take 20 mg by mouth 2 (two) times a day 1 Active Virtussin A/C 100-10 MG/5ML liquid 1 Active hydrOXYzine (ATARAX) 10 MG tablet Take 1 tablet by mouth 3 (three) times a day if needed 7 Active ipratropium-albu terol (DUO-NEB) 0.5-2.5 mg/3 mL nebulizer solution Inhale 3 mL 9 Active loratadine (CLARITIN) 10 MG tablet TAKE 1 TABLET BY MOUTH DAILY NEEDED FOR ALLERGIES 1 Active losartan (COZAAR) 25 MG tablet Take 25 mg by mouth 1 (one) time each day 1 Active metFORMIN (GLUCOPHAGE) 500 MG tablet TAKE 1 TABLET BY MOUTH TWICE DAILY WITH A MEAL 1 Active naproxen (NAPROSYN) 500 MG tablet TAKE 1 TABLET BY MOUTH TWICE DAILY WITH A MEAL 1 Active nicotine (NICODERM CQ) 21 MG/24HR Place 1 patch on the skin 9 Active ondansetron ODT (ZOFRAN-ODT) 4 MG dispersible tablet DIS ONE T PO Q 6 H PRN NV 0 Active pantoprazole (PROTONIX) 20 MG EC tablet Take 20 mg by mouth 0 Active potassium chloride (KLOR-CON M20) 20 MEQ CR tablet Take 20 mEq by mouth 0 Active predniSONE (DELTASONE) 10 MG tablet 1 Active QUEtiapine (SEROquel) 100 MG tablet Take 100 mg by mouth at bed time at bedtime 1 Active spironolactone (ALDACTONE) 50 MG tablet Take by mouth 0 Active tiotropium (SPIRIVA) 18 MCG per inhalation capsule Place 18 mcg into inhaler and inhale 0 Active Active Problems Problem Noted Date Diagnosed Date Hypertension 06/01/2021 Social History Tobacco Use Types Packs/Day Years Used Date Smoking Tobacco: Never Smokeless Tobacco: Never Alcohol Use Standard Drinks/Week Comments Yes 0 (1 standard drink = 0.6 oz pur e alcohol) daily Comments Unknown Sex and Gender Information Value Date Recorded Sex Assigned at Not on file Legal Sex Female 2:31 PM EDT Gender Identity Not on file Sexual Orientation Not on file Plan of Treatment Health Maintenance Due Date Last Done Comments Hepatitis B Vaccine (1 of 3 - Risk 3-dose series) 2006 09/08/2018, 06/28/2018, 05/31/2018, Additional history exists Diabetes: Ophthalmology Exam 03/07/2025 Diabetes: Pedal Pulse Checked 03/07/2025 Diabetes: Sensory Foot Exam 03/07/2025 Diabetes: Visual Foot Exam 03/07/2025 Diabetes: Hemoglobin A1C 06/03/2025 03/04/2025, 01/06 Influenza Vaccine (Season Ended) 2025 08/25/20 18, 09/07/2017 Pneumococcal Vaccine: 50+ Years Completed 08/25/2018, 10/10/2015, 08/06/2012, Additional history exists Insurance ([id number]) [facility] ([id number]) Care Teams Computer Network Specialist Relationship Specialty Start Date End Date Alex Chappell NP [address] [place] [address] PCP - General Nurse Practitioner 11/07/20
[2025-05-08 09:14] LABS: Cannabinoid Screen Urine Not Detected (Not Detect)
[2025-05-08 09:24] LABS: Troponin-I High Sensitivity 374.9 ng/L (<3.5-17.0)
--- NOTE | 2025-05-08 09:59 | PC.NURSE ---
still waiting on the lactulose to be brought up from pharmacy
[2025-05-08 10:11] LABS: B Type Natriuretic Peptide 415 pg/mL (<100)
[2025-05-08] MEDS: Albuterol Sulfate 2.5 MG, Albuterol/Iprat 2.5/0.5MG 3 ML 3 ML INHALE (10:33)
[2025-05-08] MEDS: Lactulose 320 GM/480 ML SOLUTION 200 GM PR (11:05)
--- NOTE | 2025-05-08 11:05 | PC.NURSE ---
lumbar puncter performed dr paul pt tolerated well, minim responds from the patient during the procedure
--- NOTE | 2025-05-08 11:49 | PC.NURSE ---
few minutes after the lactulose enema pt had two large hard bowel movements and after the second bowel movement pt started to wake up, a visible facial tremor present, pt was able to answer that she was in the hospital, denies pain, stated that she came to the hospital because of having diarrhea, pt still very drowsy
--- NOTE | 2025-05-08 11:52 | PHA.MEDREC ---
Addendum entered by Deejay Dunn RPh 05/08/25 12:19: MED REC REVIEWED BY [facility] Original Note: Pharmacy Consult ? Medication Reconciliation Pharmacy has completed the medication reconciliation. Utilized list from [facility] and [facility].
--- NOTE | 2025-05-08 12:45 | PC.NURSE ---
pt's upper arms are getting bruised up from the frequent bp checks, bp cuff rotated
--- NOTE | 2025-05-08 13:27 | PM.CCHP ---
History of Present Illness Date of Service: 05/08/25 Attending physician on admission: Tova Hughes Chief Complaint: Altered mental status 79-year-old morbidly obese female from [facility] found to be unresponsive and febrile send to the emergency room fingerstick glucose was adequate it vital signs were stable although initially she was somewhat hypotensive but has remained stable on low-dose of norepinephrine and apparently has a history of COPD/asthma for which she is on albuterol treatments and she has received several here because apparently although breathing on her own no apparent distress and clearly was not acutely hypercarbic on blood gas nurse significantly hypoxic so that not accounting for the encephalopathy and she was not acidotic and she had a low procalcitonin negative serum lactic acid chemistries with mild to moderate renal insufficiency but no metabolic decompensation and she is on a combination of a hydrocodone and also alprazolam along with which she takes atypical antipsychotics trazodone and excised talipes Gram and tizanidine and gabapentin Also note that she is on Keppra and a month ago she had a therapeutic Keppra level and CBC showed a white count of 8000 no particular left shift and on inspection besides a lot of diaphragmatic effort with prolonged expiratory time indicating some bronchospasm issues the chest x-ray looks either like it is bronchiolitic or there might be some interstitial fluid and she does have 1+ bilateral pretibial edema and my bedside echo shows excellent LV and RV function with no primary valve or pericardial disease but I could not image the inferior vena cava to declare fluid status but BNP was was mildly elevated at 415 but none of this is associated with the unresponsive state that she is in however there was 1 value that was abnormal and that was ammonia not terribly high but was at 79 I do not have any history of be no alcohol abuse or acetaminophen toxicity or any episodes of hepatitis in the past but she takes lactulose chronically [facility] facility and this could easily be for chronic Nicole elevated ammonia or could just simply be for chronic constipation I do not know but it is the only value that we can treat and we were able to obtain cerebrospinal fluid because I see no other portal of entry and I do not think there is evidence of a clinical serotonin or neuroleptic malignant syndrome her muscle tone is normal her reflexes are equal bilaterally in 2+ no clonus no rigidity CPK is pending because we do have a nonspecific elevation of her troponins Review of Systems Review of Systems: Yes Unobtainable due to mental status [facility] Past Medical History Medical History (Updated 05/08/25 @ 13:41 by Tova Hughes MD) Serum ammonia increased Cirrhosis FH: cholecystectomy Hepatitis C Splenomegaly Type 2 diabetes mellitus Morbid obesity CHF (congestive heart failure) Surgical History Surgical History H/O enucleation of right eyeball Hx of appendectomy History of hip replacement Social History Social History Household Members: None Housing: [facility] Do you presently have visiting nurse or other home services: Yes Unable to assess alcohol history related to: Unable to respond Alcohol intake: former Patient Tobacco Use Status: Former Tobacco user Tobacco use type: Cigarette Cigarette Packs Per Day: 1 Cigarettes Per Day: 20.0 Years Smoked: 30 Smoked in Last 30 Days: No Second Hand Smoke Exposure: No Use of substances other than those prescribed or required for medical reasons: Unable to respond Advance Directives: Yes Advance Directives on File: Yes Advance Directives Date on File: 08/29/23 service: No Meds Allergies Allergy/AdvReac Type Severity Reaction Status Date / Time acetaminophen (From Tylenol) Allergy Unknown Verified 05/08/25 06:32 Active Medications: Current Medications Chlorhexidine Gluconate (Chlorhexidine Gluc Oral Rinse 15 Ml Mouthwash) 15 ml BUCCAL Q8H SCOUT Dextrose (Dextrose 50 % 25 Gm/50 Ml Syringe) 25 gm IVPUSH Q15M PRN; Protocol PRN Reason: per Hypoglycemia Standing Ord. Norepinephrine Bitartrate (Levophed) 8 mg in 250 mls @ 0 mls/hr IVCONT .Q0M SCOUT; Protocol Last Titration: 05/08/25 12:40 Dose: 0.21 mcg/kg/min, 40.04 mls/hr Norepinephrine Bitartrate (Levophed) 8 mg in 250 mls @ 0 mls/hr IV .Q0M SCOUT; Protocol Levetiracetam (Keppra) 500 mg in 100 mls @ 400 mls/hr IV Q12H SCOUT Lactulose (Lactulose 20 Gm/30 Ml Solution) 20 gm PO TID SCOUT Nystatin (Nystatin Powder 15 Gm Bottle) 1 appl TOPICAL TID SCOUT; Protocol Rifaximin (Rifaximin 550 Mg Tablet) 550 mg PO BID SCOUT Home Medications ?Medication ?Instructions ?Recorded ?Confirmed ?Last Taken ?Type alprazolam 0.25 mg tablet (Xanax) 0.25 mg PO BID Anxiety 06/28/23 05/08/25 Unknown History bisacodyl 10 mg rectal suppository 10 mg RI DAILY PRN Constipation 06/28/23 05/08/25 Unknown History bisacodyl 5 mg tablet,delayed 5 mg PO DAILY 06/28/23 05/08/25 Unknown History release (Dulcolax (bisacodyl)) cetirizine 10 mg tablet 10 mg PO DAILY 06/28/23 05/08/25 Unknown History diclofenac sodium 1 % topical gel 4 g topical QID PRN Pain 06/28/23 05/08/25 Unknown History fluticasone propionate 50 1 spray intranasal BID 06/28/23 05/08/25 Unknown History mcg/actuation nasal spray,suspension (Flonase Allergy Relief) gabapentin 300 mg capsule 300 mg PO TID 06/28/23 05/08/25 Unknown History ipratropium 0.5 mg-albuterol 3 mg 3 ml inhalation Q6H PRN Shortness 06/28/23 05/08/25 Unknown History (2.5 mg base)/3 mL nebulization Of Breath Or Wheezing soln lactulose 10 gram/15 mL oral 45 ml PO TID 06/28/23 05/08/25 06/26/23 History solution levetiracetam 500 mg tablet 500 mg PO BID 06/28/23 05/08/25 Unknown History (Keppra) magnesium hydroxide 400 mg/5 mL 30 ml PO DAILY PRN Constipation 06/28/23 05/08/25 Unknown History oral suspension (Milk of Magnesia) methyl salicylate 15 %-menthol 10 1 appl topical DAILY PRN neck pain 06/28/23 05/08/25 Unknown History % topical cream (Muscle Rub) metoprolol tartrate 25 mg tablet 25 mg PO DAILY 06/28/23 05/08/25 Unknown History multivitamin 1 tab PO DAILY 06/28/23 05/08/25 Unknown History pantoprazole 40 mg tablet,delayed 40 mg PO DAILY@0630 06/28/23 05/08/25 Unknown History release sodium phosphates 19 gram-7 118 ml RI DAILY PRN Constipation 06/28/23 05/08/25 Unknown History gram/118 mL enema (Fleet Enema) thiamine HCl (vitamin B1) 100 mg 100 mg PO DAILY 06/28/23 05/08/25 Unknown History tablet tizanidine 2 mg tablet 2 mg PO Q8H PRN Muscle Spasm 06/28/23 05/08/25 Unknown History trazodone 50 mg tablet 50 mg PO BEDTIME 06/28/23 05/08/25 Unknown History cyclosporine 0.05 % eye drops in a 1 drp ophthalmic-Left BID 04/01/25 05/08/25 Unknown History dropperette (Restasis) escitalopram oxalate 10 mg tablet 15 mg PO DAILY 04/01/25 05/08/25 Unknown History fluticasone fur. 200 mcg-umeclid 1 ea inhalation DAILY 04/01/25 05/08/25 Unknown History 62.5 mcg-vilant 25 mcg inhalat.powder (Trelegy Ellipta) guaifenesin 100 mg/5 mL oral 200 mg PO Q6H PRN Cough 04/01/25 05/08/25 Unknown History liquid (Camryn-Tussin) hydroxyzine HCl 25 mg tablet 25 mg PO Q8H PRN rash/itching 04/01/25 05/08/25 Unknown History spironolactone 25 mg tablet 12.5 mg PO DAILY 04/01/25 05/08/25 Unknown History white petrolatum-mineral oil eye 1 appl ophthalmic-Left BEDTIME 04/01/25 05/08/25 Unknown History ointment albuterol sulfate 90 mcg/actuation 1 inh inhalation BID 05/08/25 05/08/25 Unknown History aerosol inhaler benzonatate 200 mg capsule 200 mg PO TID 05/08/25 05/08/25 Unknown History furosemide 40 mg tablet 40 mg PO BID 05/08/25 05/08/25 Unknown History nystatin 100,000 unit/gram topical 1 appl topical BID PRN Skin 05/08/25 05/08/25 Unknown History powder Irritation oxycodone 5 mg tablet 5 mg PO Q8H PRN Pain 05/08/25 05/08/25 Unknown History Physical Exam Vital Signs: Vital Signs: Last Vital Signs Temp 98.6 F 05/08/25 12:03 Pulse 98 05/08/25 12:40 Resp 20 05/08/25 12:18 BP 128/64 05/08/25 12:40 Pulse Ox 96 05/08/25 12:18 O2 Del Method Oxymask 05/08/25 12:18 O2 Flow Rate 4 05/08/25 12:18 Oxygen Flow Rate 6 05/08/25 06:27 BMI result Body Mass Index 38.1 Currently vital signs are stable and she is warm well-perfused good bilateral carotid upstrokes good bilateral dorsalis pedis pulses 1+ bilateral pretibial edema and skin is otherwise intact no cellulitis no decubitus Unarousable but with good muscle tone no rigidity normal bilateral and equal reflexes Cardiac exam by echo completely within normal limits Chest with bilateral prolonged expiratory time audible wheeze Abdomen markedly obese but soft no palpable hepatosplenomegaly Results Labs 05/08/25 06:32 05/08/25 06:32 Labs: Laboratory Results - last 24 hr 05/08/25 05/08/25 05/08/25 06:32 06:45 06:50 MCV 75.4 L MCH 22.9 L MCHC 30.4 L RDW 18.8 H Plt Count 46 L MPV Not Reportable Immature Gran % (Auto) 0.8 H Neut % (Auto) 83.8 H Lymph % (Auto) 3.9 L [place] % (Auto) 11.5 H Eos % (Auto) 0.0 Baso % (Auto) 0.0 Lymph # (Auto) 0.3 L [place] # (Auto) 0.7 Eos # (Auto) 0.0 Baso # (Auto) 0.0 Abs Immat Gran (auto) 0.05 H Absolute Neuts (auto) 5.4 Absolute Nucleated RBC 0.020 H Nucleated RBC % (auto) 0.3 H VBG pH 7.49 H VBG pCO2 43 VBG pO2 162 VBG HCO3 33 H VBG O2 Saturation 100.0 VBG Base Excess 9.0 Anion Gap 13 Estim Creat Clear Calc 36.3 Estimated GFR 34 POC Glucose 173 H Random Glucose 193 H Lactic Acid 1.5 Calcium 8.5 Magnesium 1.9 Total Bilirubin 1.7 H Direct Bilirubin 0.7 H AST 33 H ALT < 6 Alkaline Phosphatase 55 Ammonia 78 H Total Creatine Kinase 23 L Troponin I High Sens 265.8 H* D B-Natriuretic Peptide 415 H Total Protein 5.9 L Albumin 3.2 L Lipase 13 Procalcitonin 0.33 Urine Color Urine Appearance Urine pH Ur Specific Redig Urine Protein Urine Glucose (UA) Urine Ketones Urine Blood Urine Nitrite Ur Leukocyte Esterase Urine RBC Urine WBC Ur Squamous Epith Cells Urine Bacteria Hyaline Casts CSF Tube Number CSF Appearance (b) CSF Glucose CSF Total Protein Urine Opiates Screen Ur Buprenorphine Scrn Ur Oxycodone Screen Urine Methadone Screen Urine Fentanyl Screen Ur Barbiturates Screen Ur Phencyclidine Scrn Ur Amphetamines Screen U Benzodiazepines Scrn Urine Cocaine Screen U Marijuana (THC) Screen Ethyl Alcohol < 10 Influenza Type A (PCR) NEGATIVE Influenza Type B (PCR) NEGATIVE RSV RNA Qual (PCR) NEGATIVE SARS-CoV-2 RNA (RT-PCR) NEGATIVE 05/08/25 05/08/25 05/08/25 07:43 08:52 11:06 MCV MCH MCHC RDW Plt Count MPV Immature Gran % (Auto) Neut % (Auto) Lymph % (Auto) Lap[place] % (Auto) Eos % (Auto) Baso % (Auto) Lymph # (Auto) [place] # (Auto) Eos # (Auto) Baso # (Auto) Abs Immat Gran (auto) Absolute Neuts (auto) Absolute Nucleated RBC Nucleated RBC % (auto) VBG pH VBG pCO2 VBG pO2 VBG HCO3 VBG O2 Saturation VBG Base Excess Anion Gap Estim Creat Clear Calc Estimated GFR POC Glucose Random Glucose Lactic Acid Calcium Magnesium Total Bilirubin Direct Bilirubin AST ALT Alkaline Phosphatase Ammonia Total Creatine Kinase Troponin I High Sens 374.9 H* B-Natriuretic Peptide Total Protein Albumin Lipase Procalcitonin Urine Color Yellow Urine Appearance Clear Urine pH 6.0 Ur Specific Redig 1.015 Urine Protein Negative Urine Glucose (UA) Negative Urine Ketones Negative Urine Blood Negative Urine Nitrite Negative Ur Leukocyte Esterase Trace H Urine RBC 0-2 Urine WBC 0-5 Ur Squamous Epith Cells 0-2 Urine Bacteria 3+ Hyaline Casts 3-5 CSF Tube Number 3 CSF Appearance (b) Clear, Colorless CSF Glucose 128 CSF Total Protein 34.6 Urine Opiates Screen Not Detected Ur Buprenorphine Scrn Not Detected Ur Oxycodone Screen Not Detected Urine Methadone Screen Not Detected Urine Fentanyl Screen Not Detected Ur Barbiturates Screen Not Detected Ur Phencyclidine Scrn Not Detected Ur Amphetamines Screen Not Detected U Benzodiazepines Scrn POSITIVE H Urine Cocaine Screen Not Detected U Marijuana (THC) Screen Not Detected Ethyl Alcohol Influenza Type A (PCR) Influenza Type B (PCR) RSV RNA Qual (PCR) SARS-CoV-2 RNA (RT-PCR) Assessment and Plan (1) Elevated troponin: Status: Acute (2) Delirium due to general medical condition: Status: Acute (3) Hypoxia: Status: Acute (4) COPD exacerbation: Status: Acute (5) Chronic lung disease: Status: Acute (6) Altered mental status: Status: Acute (7) Serum ammonia increased: Status: Acute (8) Hepatic failure, with coma: Status: Acute Plan At this point with the ammonia level being elevated I have to assume that it is a mental status on the basis of hepatic failure and hyperammonemia and will treat her by placing an NG tube and then giving her lactulose and rifaximin and as a precipitating reason with no other source as we await the CSF result which I do not believe is going to be positive I might treat empirically as a spontaneous bacterial peritonitis Total time managing care of this patient today: 60 minutes.
[2025-05-08 13:32] LABS: Red Blood Cell CSF 1675 MM*3; White Blood Cell CSF 6 MM*3
[2025-05-08 13:33] LABS: Lymphocytes CSF 12 %; Neutrophils CSF 61 %
[2025-05-08 13:36] LABS: Red Blood Cell CSF 145 MM*3; White Blood Cell CSF 2 MM*3
[2025-05-08 13:37] LABS: Lymphocytes CSF 34 %; Neutrophils CSF 21 %
[2025-05-08] MEDS: Furosemide 20 MG/2 ML VIAL IVPUSH (13:42)
--- NOTE | 2025-05-08 13:42 | PC.NURSE ---
Report called to MUSIC ASSISTANT
[2025-05-08] MEDS: Chlorhexidine Gluc Oral Rinse 15 ML MOUTHWASH BUCCAL (14:38)
[2025-05-08 14:39] LABS: Thyroid Stimulating Hormone 0.78 uIU/mL (0.32-4.0)
[2025-05-08] MEDS: Albuterol/Iprat 2.5/0.5MG 3 ML AMPUL.NEB INHALE ×2 (15:58→18:59)
[2025-05-08 16:16] LABS: Glucose, Whole Blood 248 mg/dL (60-115)
--- NOTE | 2025-05-08 18:44 | PC.NURSE ---
Assumed care at 1415, when pt arrived on unit. Levophed drip running at 0.19 mcg/kg/min. Report received from Subhash HOOPER. Pt obtunded, unable to provide history or answer many questions. Pt rouses to voice. By end of shift, pt more awake, still quite drowsy. Pt able to swallow PO MD david asked for clear liquid diet and stated no need to insert NG tube. Pt repositioned q2hrs as tolerated. Fall/safety precautions in place. See MAR and assessments for further details.
[2025-05-09] VITALS (31 sets, daily range): BP systolic 89–139; BP diastolic 44–80; PULSE 71–105; RESP 12–27; TEMP 36.9–37.9; O2SAT 91–99; BMI 37.6
--- NOTE | 2025-05-09 | ECG_ITS ---
Test Reason : RHYTHM CHECK Blood Pressure : */* mmHG Vent. Rate : 72 BPM Atrial Rate : 72 BPM P-R Int : 178 ms QRS Dur : 94 ms QT Int : 456 ms P-R-T Axes : 60 -2 34 degrees QTcB Int : 499 ms Normal sinus rhythm Prolonged QT Abnormal ECG When compared with ECG of 08-May-2025 06:41, Vent. rate has decreased by 41 bpm Criteria for Anterior infarct are no longer Present Criteria for Inferior infarct are no longer Present Referred By: Lacie Haynes Electronically Signed By: RHETT CONTRERAS MD
[2025-05-09 00:42] LABS: Glucose, Whole Blood 154 mg/dL (60-115)
[2025-05-09 04:43] LABS: VBG HCO3 31 mmol/L (22-26); VBG O2 % Saturation 100.0 %
[2025-05-09 05:11] LABS: Hemoglobin 7.6 g/dl (12.0-16.0); NRBC Abs Auto 0.000 X10*3/uL (0.0-0.012); NRBC Pct Auto 0.0 /100WBC (0.0-0.2); SCAN SMEAR FLAG 1
[2025-05-09 05:13] LABS: Hematocrit 25.1 % (37.0-47.0); Imm Gran Abs Auto 0.03 X10*3/uL (0.00-0.03); Imm Gran Pct Auto 0.5 % (0.0-0.4); Lymphocytes Absolute Auto 0.5 X10*3/uL (1.2-4.9); MANUAL DIFF FLAG SCAN; Mean Corpuscular HGB Conc 30.3 g/dl (31.0-35.0); Mean Corpuscular Hemoglobin 22.9 pg (27.0-33.0); Mean Corpuscular Volume 75.6 fL (80.0-98.0); Red Blood Count 3.32 X10*6/uL (4.20-5.50); White Blood Count 5.7 X10*3/uL (4.8-10.8)
[2025-05-09 05:15] LABS: PLT ABN DIST 1; Platelet Count 44 X10*3/uL (160-400)
[2025-05-09 05:23] LABS: Ammonia 33 umol/L (13-55)
[2025-05-09 05:35] LABS: B Type Natriuretic Peptide 1119 pg/mL (<100)
[2025-05-09 05:40] LABS: Troponin-I High Sensitivity 552.6 ng/L (<3.5-17.0)
[2025-05-09 05:43] LABS: Alanine Aminotransferase < 6 U/L (0-31); Albumin Level 3.5 g/dL (3.5-5.0); Alkaline Phosphatase 44 U/L (39-117); Anion Gap 13 (12-20); Aspartate Amino Transferase 32 U/L (5-31); Blood Urea Nitrogen 27 mg/dL (9-16); Calcium 8.5 mg/dL (8.4-10.2); Carbon Dioxide 27 mmol/L (22-29); Chloride 102 mmol/L (96-108); Creatinine Clr Calc Pharmacy 47.3; Estimated Glomerular Filt Rate 48; Magnesium 1.7 mg/dL (1.6-2.6); Potassium 2.9 mmol/L (3.3-5.1); Sodium 139 mmol/L (135-145); Total Protein 5.8 g/dL (6.5-8.0)
[2025-05-09] MEDS: levETIRAcetam in NaCl (iso-os) 500 MG/100 ML PIGGYBACK 400 MG IV ×2 (06:08→18:44)
[2025-05-09] MEDS: Potassium Phosphate/NS 15 MMOL/250 ML PLAST..BAG 62.5 MMOL IV (06:09)
[2025-05-09] MEDS: Potassium Chloride Packet 20 MEQ PACKET 40 MEQ PO (06:17)
[2025-05-09 06:22] LABS: Venous Blood Gas Refer to POC result
--- NOTE | 2025-05-09 07:00 | CA_ITS ---
Transthoracic Echocardiogram Patient (Last, First, Middle): Sarai Mederos, Gender: Female Date of : 1945 Age: 79 Procedure Date: 05/09/2025 Procedure Type: Transthoracic Echocardiogram Location: ICU Height: 162.56 cm Weight: 95.71 kg BSA: 2.00 m2 Heart Rate: bpm BP: 89 / 52 mmHg Farm Butcher: TO Referring MD: Lacie Haynes NP Bakery Products Checker: Darian Almaraz MD Symptoms: Elevated trop, BNP Study Quality: Fair/Contrast ECG Rhythm: Sinus Conclusions: - 1. Hyperdynamic LV ejection fraction greater than 70% with impaired relaxation filling pattern with mild LVH without clear obstructive physiology 2. Severely dilated left atrium 3. Omgw-ep-czzavzuk calcific aortic stenosis with increased gradient across the LVOT of unclear significance 4. Calcific mitral annular calcification changes noted 5. No gross pericardial effusion Findings Procedure Information Contrast agent, definity, is being given per protocol without apparent complications. Left Ventricle Normal left ventricular cavity size. There is mildly increased left ventricular wall thickness. The left ventricular systolic function is hyperdynamic. The visually estimated ejection fraction is >70%. Spectral Doppler is indicative of an impaired relaxation filling pattern. Right Ventricle Normal right ventricular cavity size and systolic function. Atria The left atrium is severely dilated. There is no evidence of interatrial shunt. The right atrium is mildly dilated. Aortic Valve There is moderate calcification of the aortic valve. There is moderate thickening of the aortic valve. There is mild to moderate aortic valve stenosis. The peak aortic gradient is 52 mmHg.The mean gradient is 32 mmHg. The aortic valve area is 1.62 cm2. There is no aortic valve regurgitation. velocities across both the aortic valve as well as the LVOT is increased suggestive of increased stroke volume, subaortic obstruction is less likely. Despite significantly increased gradient aortic stenosis measure to be mild due to increased flow velocities. Mitral Valve There is severe posterior mitral leaflet thickening. There is severe mitral annular calcification. There is trace mitral valve regurgitation. There is no mitral valve stenosis. Pulmonic Valve The pulmonic valve was not well visualized. Tricuspid Valve Likely normal tricuspid valve structure and function. Tricuspid regurgitation envelope is inadequate for calculation of right ventricular systolic pressure. Indeterminate right atrial pressure. Great Vessels The pulmonary artery was not well visualized. There is no dilatation of the ascending aorta measuring 3.60 cm. Small plaque is seen in the sino tubular ridge. Venous The inferior vena cava is normal in size and does not collapse with inspiration. Pericardium/Pleural There is no evidence of pericardial effusion. Prior Study Comparison No significant change compared to prior study dated: 06/28/2023. RV systolic pressure was not adequately calculated on this study Measurements 2D Linear Measurements IVSd: 1.31 0.6-0.9/0.6-1.0 cm LVIDd: 4.95 3.9-5.3/4.2-5.9 cm LVIDd Index: 2.48 2.4-3.2/2.2-3.1 cm/m2 LVIDs: 2.57 2.0-3.6 cm LVPWd: 1.20 0.7-1.1 cm LA Diam: 4.40 2.7-3.8/3.0-4.0 cm LAIDs Index: 2.20 1.5-2.3 cm/m2 LV Mass: 305.63 67-162/88-224 g LV Mass Index: 152.81 43-95/49-115 g/m2 LVOT Diam: 2.10 3.0+(-)1.3 cm Mitral Valve MV VTI: 0.40 MV Pk Tino: 1.84 MV Mn Tino: 1.11 MV Pk Grad: 14.00 MV Mn Grad: 6.00 MV Pk E: 1.16 MV PK A: 1.76 MV Decel Time: 156.00 E/A: 0.70 E'Lateral: 5.00 E'Medial: 4.03 E/E' Med: 28.80 E/E' Lat: 23.20 PHT: 46.00 MVA PHT: 4.78 MVA Continuity: 3.24 Decel Haines: 7.46 Aortic Valve AoV Pk Tino: 3.62 AoV Mn Tino: 2.62 AoV VTI: 0.80 AoV Pk Grad: 52.00 Aov Mn Grad: 32.00 COLBY Cont.VTI: 1.62 LVOT LVOT Pk Tino: 1.62 LVOT Mn Tino: 1.14 LVOT VTI: 0.38 LVOT Pk Grad: 10.00 LVOT Mn Grad: 6.00 LVOT Diam: 2.10 LVOT Area: 3.46 Diastolic Function MV Pk E: 1.16 MV Pk A: 1.76 E/A: 0.70 E'Medial: 4.03 E/E' Med: 28.80 E' Laterial: 5.00 E/E' Lat: 23.20 Right Ventricle TAPSE (mm): 25.70 TVS' Tino: 15.60 Tricuspid Valve TR Pk Tino: 2.30 TR Pk Grad: 21.00 Great Vessels Aorta Sinus of Valsalva: 3.20 2.0-3.[address] [place]: 2.38 1.7-3.4 cm Ao Asc: 3.60 2.1-3.4 cm Updated in Other Vendor System with Status of Final Darian Almaraz MD electronically signed on 05/09/2025 10:58:51 AM with status of Final
[2025-05-09] MEDS: Albuterol/Iprat 2.5/0.5MG 3 ML AMPUL.NEB INHALE ×3 (08:27→20:10)
--- NOTE | 2025-05-09 08:42 | P.PNCC_ITS ---
Subjective Subjective Date of Service: 05/09/25 Interval History: 79-year-old morbidly obese female longstanding hepatitis-C with secondary cirrhosis and evidence of portal hypertension with hepatosplenomegaly and she has a chronically elevated ammonia level requiring lactulose on a regular basis came in with altered mental status completely obtunded ammonia level of 78 and in search of a precipitating reason blood cultures are growing Gram-positive cocci but the catheterized urinary tract is apparently negative for source of infection the skin also unimpressive no breakdown or particular portal of entry the CSF was tapped that was negative and she has no ascites although I still labeled her as a spontaneous bacterial peritonitis and start her on ceftriaxone and vancomycin Today she is awake with normal cognitive function no complaints no discomfort there is no NG tube she is taking a diet by mouth she was simply hypokalemic and that was replaced and because she has this chronically elevated troponin with a CK pending I repeated her EKG which is completely within normal limits in sinus rhythm and unchanged from yesterday doubtful that it is ischemic I can not completely say there is no myocarditis and I ordered of a formal echo even though my echo yesterday showed globally normal systolic wall motion of the left ventricle I did not see any significant primary valve disease but was a difficult study it was purely a subxiphoid window limited by her obesity there was an odd thickening of the interatrial septum and with Gram-positive cocci just want to be sure not missing some form of endocarditis Critical Care Time (minutes): 35 Physical Exam 2 Vital Signs: Vital Signs: Last Vital Signs Temp 100.2 F 05/09/25 04:00 Pulse 86 05/09/25 08:29 Resp 17 05/09/25 08:29 BP 115/48 L 05/09/25 08:17 Pulse Ox 94 05/09/25 07:00 O2 Del Method Nasal Cannula 05/09/25 07:00 O2 Flow Rate 1 05/09/25 07:00 Oxygen Flow Rate 6 05/08/25 06:27 BMI result Body Mass Index 37.6 Normal cognitive function and neurologically symmetric Skin basically clear no cellulitis Abdomen is soft good bowel sounds nontender Chest is clear both chest x-ray as well as no adventitious sounds Cardiac exam by my echo shows globally normal systolic wall motion of the left ventricle no pericardial disease Objective Data Labs 05/09/25 04:37 05/09/25 04:37 Labs: Laboratory Results - last 24 hr 05/08/25 05/08/25 05/08/25 06:32 07:43 08:52 WBC RBC Hgb Hct MCV MCH MCHC RDW Plt Count MPV Immature Gran % (Auto) Neut % (Auto) Lymph % (Auto) [place] % (Auto) Eos % (Auto) Baso % (Auto) Lymph # (Auto) [place] # (Auto) Eos # (Auto) Baso # (Auto) Abs Immat Gran (auto) Absolute Neuts (auto) Absolute Nucleated RBC Nucleated RBC % (auto) Smear Tech's Comments VBG pH VBG pCO2 VBG pO2 VBG HCO3 VBG O2 Saturation VBG Base Excess Sodium Potassium Chloride Carbon Dioxide Anion Gap BUN Creatinine Estim Creat Clear Calc Estimated GFR POC Glucose Random Glucose Calcium Phosphorus Magnesium Total Bilirubin AST ALT Alkaline Phosphatase Ammonia Total Creatine Kinase 23 L Troponin I High Sens 374.9 H* B-Natriuretic Peptide 415 H Total Protein Albumin TSH 0.78 CSF Tube Number CSF Volume CSF Appearance CSF Color CSF WBC CSF RBC CSF Neutrophils CSF Lymphocytes CSF Monocytes % CSF Appearance (b) CSF Glucose CSF Total Protein Urine Opiates Screen Not Detected Ur Buprenorphine Scrn Not Detected Ur Oxycodone Screen Not Detected Urine Methadone Screen Not Detected Urine Fentanyl Screen Not Detected Ur Barbiturates Screen Not Detected Ur Phencyclidine Scrn Not Detected Ur Amphetamines Screen Not Detected U Benzodiazepines Scrn POSITIVE H Urine Cocaine Screen Not Detected U Marijuana (THC) Screen Not Detected Ethyl Alcohol < 10 05/08/25 05/08/25 05/08/25 11:06 11:06 11:06 WBC RBC Hgb Hct MCV MCH MCHC RDW Plt Count MPV Immature Gran % (Auto) Neut % (Auto) Lymph % (Auto) [place] % (Auto) Eos % (Auto) Baso % (Auto) Lymph # (Auto) [place] # (Auto) Eos # (Auto) Baso # (Auto) Abs Immat Gran (auto) Absolute Neuts (auto) Absolute Nucleated RBC Nucleated RBC % (auto) Smear Tech's Comments VBG pH VBG pCO2 VBG pO2 VBG HCO3 VBG O2 Saturation VBG Base Excess Sodium Potassium Chloride Carbon Dioxide Anion Gap BUN Creatinine Estim Creat Clear Calc Estimated GFR POC Glucose Random Glucose Calcium Phosphorus Magnesium Total Bilirubin AST ALT Alkaline Phosphatase Ammonia Total Creatine Kinase Troponin I High Sens B-Natriuretic Peptide Total Protein Albumin TSH CSF Tube Number 3 1 4 CSF Volume 1.0 CSF Appearance CSF Color CSF WBC CSF RBC CSF Neutrophils CSF Lymphocytes CSF Monocytes % CSF Appearance (b) CSF Glucose CSF Total Protein Urine Opiates Screen Ur Buprenorphine Scrn Ur Oxycodone Screen Urine Methadone Screen Urine Fentanyl Screen Ur Barbiturates Screen Ur Phencyclidine Scrn Ur Amphetamines Screen U Benzodiazepines Scrn Urine Cocaine Screen U Marijuana (THC) Screen Ethyl Alcohol 05/08/25 05/08/25 05/08/25 11:06 11:06 11:06 WBC RBC Hgb Hct MCV MCH MCHC RDW Plt Count MPV Immature Gran % (Auto) Neut % (Auto) Lymph % (Auto) [place] % (Auto) Eos % (Auto) Baso % (Auto) Lymph # (Auto) [place] # (Auto) Eos # (Auto) Baso # (Auto) Abs Immat Gran (auto) Absolute Neuts (auto) Absolute Nucleated RBC Nucleated RBC % (auto) Smear Tech's Comments VBG pH VBG pCO2 VBG pO2 VBG HCO3 VBG O2 Saturation VBG Base Excess Sodium Potassium Chloride Carbon Dioxide Anion Gap BUN Creatinine Estim Creat Clear Calc Estimated GFR POC Glucose Random Glucose Calcium Phosphorus Magnesium Total Bilirubin AST ALT Alkaline Phosphatase Ammonia Total Creatine Kinase Troponin I High Sens B-Natriuretic Peptide Total Protein Albumin TSH CSF Tube Number CSF Volume 1.0 CSF Appearance HAZY CLEAR CSF Color STRAW COLORLESS CSF WBC 6 CSF RBC CSF Neutrophils CSF Lymphocytes CSF Monocytes % CSF Appearance (b) CSF Glucose CSF Total Protein Urine Opiates Screen Ur Buprenorphine Scrn Ur Oxycodone Screen Urine Methadone Screen Urine Fentanyl Screen Ur Barbiturates Screen Ur Phencyclidine Scrn Ur Amphetamines Screen U Benzodiazepines Scrn Urine Cocaine Screen U Marijuana (THC) Screen Ethyl Alcohol 05/08/25 05/08/25 05/08/25 11:06 11:06 11:06 WBC RBC Hgb Hct MCV MCH MCHC RDW Plt Count MPV Immature Gran % (Auto) Neut % (Auto) Lymph % (Auto) [place] % (Auto) Eos % (Auto) Baso % (Auto) Lymph # (Auto) [place] # (Auto) Eos # (Auto) Baso # (Auto) Abs Immat Gran (auto) Absolute Neuts (auto) Absolute Nucleated RBC Nucleated RBC % (auto) Smear Tech's Comments VBG pH VBG pCO2 VBG pO2 VBG HCO3 VBG O2 Saturation VBG Base Excess Sodium Potassium Chloride Carbon Dioxide Anion Gap BUN Creatinine Estim Creat Clear Calc Estimated GFR POC Glucose Random Glucose Calcium Phosphorus Magnesium Total Bilirubin AST ALT Alkaline Phosphatase Ammonia Total Creatine Kinase Troponin I High Sens B-Natriuretic Peptide Total Protein Albumin TSH CSF Tube Number CSF Volume CSF Appearance CSF Color CSF WBC 2 CSF RBC 1675 145 CSF Neutrophils 61 21 CSF Lymphocytes 12 CSF Monocytes % CSF Appearance (b) CSF Glucose CSF Total Protein Urine Opiates Screen Ur Buprenorphine Scrn Ur Oxycodone Screen Urine Methadone Screen Urine Fentanyl Screen Ur Barbiturates Screen Ur Phencyclidine Scrn Ur Amphetamines Screen U Benzodiazepines Scrn Urine Cocaine Screen U Marijuana (THC) Screen Ethyl Alcohol 05/08/25 05/08/25 05/08/25 11:06 11:06 16:09 WBC RBC Hgb Hct MCV MCH MCHC RDW Plt Count MPV Immature Gran % (Auto) Neut % (Auto) Lymph % (Auto) [place] % (Auto) Eos % (Auto) Baso % (Auto) Lymph # (Auto) [place] # (Auto) Eos # (Auto) Baso # (Auto) Abs Immat Gran (auto) Absolute Neuts (auto) Absolute Nucleated RBC Nucleated RBC % (auto) Smear Tech's Comments VBG pH VBG pCO2 VBG pO2 VBG HCO3 VBG O2 Saturation VBG Base Excess Sodium Potassium Chloride Carbon Dioxide Anion Gap BUN Creatinine Estim Creat Clear Calc Estimated GFR POC Glucose 248 H Random Glucose Calcium Phosphorus Magnesium Total Bilirubin AST ALT Alkaline Phosphatase Ammonia Total Creatine Kinase Troponin I High Sens B-Natriuretic Peptide Total Protein Albumin TSH CSF Tube Number CSF Volume CSF Appearance CSF Color CSF WBC CSF RBC CSF Neutrophils CSF Lymphocytes 34 CSF Monocytes % 27 45 CSF Appearance (b) Clear, Colorless CSF Glucose 128 CSF Total Protein 34.6 Urine Opiates Screen Ur Buprenorphine Scrn Ur Oxycodone Screen Urine Methadone Screen Urine Fentanyl Screen Ur Barbiturates Screen Ur Phencyclidine Scrn Ur Amphetamines Screen U Benzodiazepines Scrn Urine Cocaine Screen U Marijuana (THC) Screen Ethyl Alcohol 05/09/25 05/09/25 05/09/25 00:37 04:37 04:39 WBC 5.7 RBC 3.32 L Hgb 7.6 L Hct 25.1 L MCV 75.6 L MCH 22.9 L MCHC 30.3 L RDW 19.0 H Plt Count 44 L MPV Not Reportable Immature Gran % (Auto) 0.5 H Neut % (Auto) 73.5 H Lymph % (Auto) 8.7 L [place] % (Auto) 16.9 H Eos % (Auto) 0.2 Baso % (Auto) 0.2 Lymph # (Auto) 0.5 L [place] # (Auto) 1.0 Eos # (Auto) 0.0 Baso # (Auto) 0.0 Abs Immat Gran (auto) 0.03 Absolute Neuts (auto) 4.2 Absolute Nucleated RBC 0.000 Nucleated RBC % (auto) 0.0 Smear Tech's Comments VERIFIED VBG pH 7.62 H* VBG pCO2 29 VBG pO2 204 VBG HCO3 31 H VBG O2 Saturation 100.0 VBG Base Excess 10.0 Sodium 139 Potassium 2.9 L* D Chloride 102 Carbon Dioxide 27 Anion Gap 13 BUN 27 H Creatinine 1.10 Estim Creat Clear Calc 47.3 Estimated GFR 48 POC Glucose 154 H Random Glucose 120 H Calcium 8.5 Phosphorus 2.5 L Magnesium 1.7 Total Bilirubin 1.2 H AST 32 H ALT < 6 Alkaline Phosphatase 44 Ammonia 33 Total Creatine Kinase 42 Troponin I High Sens 552.6 H* B-Natriuretic Peptide 1119 H Total Protein 5.8 L Albumin 3.5 TSH CSF Tube Number CSF Volume CSF Appearance CSF Color CSF WBC CSF RBC CSF Neutrophils CSF Lymphocytes CSF Monocytes % CSF Appearance (b) CSF Glucose CSF Total Protein Urine Opiates Screen Ur Buprenorphine Scrn Ur Oxycodone Screen Urine Methadone Screen Urine Fentanyl Screen Ur Barbiturates Screen Ur Phencyclidine Scrn Ur Amphetamines Screen U Benzodiazepines Scrn Urine Cocaine Screen U Marijuana (THC) Screen Ethyl Alcohol Microbiology Microbiology Results: Microbiology 05/08/25 11:06 Cerebrospinal Fluid Gram Stain - Final 05/08/25 11:06 Cerebrospinal Fluid Fluid Description - Final 05/08/25 11:06 Cerebrospinal Fluid CSF Culture - Preliminary No growth after 1 day 05/08/25 06:32 Blood - Venous Blood Culture - Preliminary Prelim: GPC Gram Stain only 05/08/25 06:32 Blood - Venous Blood Culture - Preliminary Prelim: GPC Gram Stain only Progress Note: A&P Assessment and plan (1) Elevated troponin: Status: Acute (2) Serum ammonia increased: Status: Acute (3) Hepatic failure, with coma: Status: Acute (4) Sepsis: Status: Acute (5) Altered mental status: Status: Acute (6) Hypoxia: Status: Acute (7) COPD exacerbation: Status: Acute (8) Acute on chronic respiratory failure with hypoxia and hypercapnia: Status: Acute (9) Chronic lung disease: Status: Acute (10) Hypokalemia due to loss of potassium: Status: Acute (11) Spontaneous bacterial peritonitis: Status: Acute (12) Cirrhosis of liver without ascites: Status: Acute (13) Hepatitis C test positive: Status: Acute (14) Acute hypotension: Status: Acute Plan At this point I can reduce her lactulose intake I am going to replace her potassium. The ceftriaxone and just maintain the vancomycin until we have an organism from the blood culture and continue to try to wean the Levophed and if that could be accomplished she could be downgraded to regular medical bed Quality Stroke Does the patient have a stroke diagnosis?: No VTE Prior VTE?: No VTE Risk Level:: Medical - moderate - high VTE Device Contraindication: N/A - Device Ordered VTE Drug Contraindication: Treatment Not Tolerated
[2025-05-09] MEDS: Potassium Chloride ER 20 MEQ TAB.ER.PRT 40 MEQ PO (08:55)
[2025-05-09 10:59] LABS: Alanine Aminotransferase < 6 U/L (0-31); Albumin Level 3.3 g/dL (3.5-5.0); Alkaline Phosphatase 44 U/L (39-117); Anion Gap 12 (12-20); Aspartate Amino Transferase 33 U/L (5-31); Blood Urea Nitrogen 24 mg/dL (9-16); Calcium 8.4 mg/dL (8.4-10.2); Carbon Dioxide 26 mmol/L (22-29); Chloride 104 mmol/L (96-108); Creatinine Clr Calc Pharmacy 51.6; Estimated Glomerular Filt Rate 52; Potassium 3.9 mmol/L (3.3-5.1); Sodium 138 mmol/L (135-145); Total Protein 5.7 g/dL (6.5-8.0)
[2025-05-09 11:52] LABS: Glucose, Whole Blood 134 mg/dL (60-115)
--- NOTE | 2025-05-09 15:06 | MHC.CM.PN ---
Pt admitted to ICU w/AMS/Fever: found to have asp pna. Pt not a reliable historian at this time: Message left for HCP Christian. Call placed to [facility] where RN states pt is a LTC resident and bed hold. Pt is dependent for ADL's and transfers sit to stand. She is a set up for all meals. Pt will return to LTC when medically stable via BLS.
--- NOTE | 2025-05-09 16:22 | HE.ICUCC ---
ICU Critical Care Nursing Note: Shift eval 7a-4p Neuro: Patient alert and oriented through day. Forgetful at times, yelling out for care intermit. Otherwise redirectable and cooperative. Cardiac:SR 80?s to 90?s on monitor. Weaned levophed off patient (see MAR for titration). Resp: Remained on 1 liter nasal cannula. Managing secretions. No dyspnea reported. GI/: Morales removed during plant operator/shift supervisor. Bladderscanned per protocol at approx 10am for 244 mL. No retention noted. Voided 200 mL yellow urine via purewick, but then incont of large amt of urine at approx 1400.? Incont of brown liquid stool x3. Full bath given in morning and then kelly care given with each incont episode. Receiving scheduled lactulose - Dr Hughes made aware of stool frequency and mental status - order to decrease frequency and amt of lactulose.? Diet increased from liquid to diabetic. Tolerating diet.? Endocrine: POC & insulin coverage changed from Q6HR to QIDAC Integumentary/Musculoskeletal: - no issues noted - treating folds with nystatin Infectious Disease: Microbiology report of no MRSA reported to Dr Hughes. Rocephin restarted.? Order to transfer to med-surg, Order to d/c tele monitoring per Dr Poe. Keep O2sat monitoring in place. report given to Ansley Flowers RN at approx 1550. Transferred to floor at 1600.?
[2025-05-09 16:48] LABS: Glucose, Whole Blood 109 mg/dL (60-115)
[2025-05-09 20:32] LABS: Glucose, Whole Blood 109 mg/dL (60-115)
[2025-05-09] MEDS: guaiFENesin LA 600 MG TAB.ER.12H PO (21:41)
[2025-05-09] MEDS: guaiFENesin 200 MG/10 ML 10 ML LIQUID PO (23:39)
[2025-05-10] VITALS (7 sets, daily range): BP systolic 120–136; BP diastolic 69–81; PULSE 82–96; RESP 16–20; TEMP 36.3–37.3; O2SAT 93–99; BMI 40.8
--- NOTE | 2025-05-10 04:47 | PC.NURSE ---
Late entry: Upon assuming care of pt at 19:00, pt's L arm was warmer to touch than R arm, red & swollen. MD Norris was notified of the situation. US ordered to rule out DVT. Per US report no DVT in L arm. Pt's L arm elevated w/ pillow, will continue to monitor pt's arm.
[2025-05-10] MEDS: levETIRAcetam in NaCl (iso-os) 500 MG/100 ML PIGGYBACK 400 MG IV (06:44)
[2025-05-10 07:30] LABS: Glucose, Whole Blood 89 mg/dL (60-115)
[2025-05-10] MEDS: Albuterol/Iprat 2.5/0.5MG 3 ML AMPUL.NEB INHALE ×4 (07:32→18:43)
--- NOTE | 2025-05-10 08:34 | P.PNIM_ITS ---
Subjective Subjective Date of Service: 05/10/25 Interval History: more alert Physical Exam 2 Vital Signs: Vital Signs: Last Vital Signs Temp 99.0 F 05/10/25 07:15 Pulse 89 05/10/25 07:34 Resp 18 05/10/25 07:34 BP 126/81 05/10/25 07:15 Pulse Ox 95 05/10/25 07:15 O2 Del Method Nasal Cannula 05/10/25 07:15 O2 Flow Rate 1 05/10/25 07:15 Oxygen Flow Rate 6 05/08/25 06:27 BMI result Body Mass Index 40.8 Normal cognitive function and neurologically symmetric Skin basically clear no cellulitis Abdomen is soft good bowel sounds nontender Chest is clear both chest x-ray as well as no adventitious sounds Cardiac exam by my echo shows globally normal systolic wall motion of the left ventricle no pericardial disease Objective Data Active Medications Albuterol/Ipratropium (Albuterol/Iprat 2.5/0.5mg 3 Ml Ampul.Neb) 3 ml INHALE QID [facility] Last Admin: 05/10/25 07:32 Dose: 3 ml Documented By: CARMITA Ceftriaxone Sodium (Ceftriaxone Sodium 1 Gm Vial) 1 gm IVPUSH Q12H [facility] Last Admin: 05/10/25 00:48 Dose: 1 gm Documented By: RANULFO Dextrose (Dextrose 50 % 25 Gm/50 Ml Syringe) 25 gm IVPUSH Q15M PRN; Protocol PRN Reason: per Hypoglycemia Standing Ord. Escitalopram Oxalate (Escitalopram Oxalate 5 Mg Tablet) 15 mg PO DAILY [facility] Furosemide (Furosemide 40 Mg Tablet) 40 mg PO BID [facility]; Protocol Guaifenesin (Guaifenesin La 600 Mg Tab.Er.12h) 600 mg PO BID [facility] Last Admin: 05/09/25 21:41 Dose: 600 mg Documented By: RANULFO Guaifenesin (Guaifenesin 200 Mg/10 Ml 10 Ml Liquid) 10 ml PO Q4H PRN PRN Reason: Cough Last Admin: 05/09/25 23:39 Dose: 10 ml Documented By: RANULFO Insulin Human Lispro (Insulin Lispro 100 Unit/Ml 3 Ml Vial) 0 unit SUBCUT QIDACHS [facility]; Protocol Last Admin: 05/10/25 08:22 Dose: Not Given Documented By: OPAL Non-Admin Reason: No Insulin Coverage Lactulose (Lactulose 20 Gm/30 Ml Solution) 10 gm PO BID [facility] Last Admin: 05/09/25 21:43 Dose: 10 gm Documented By: RANULFO Levetiracetam (Levetiracetam 500 Mg Tablet) 500 mg PO BID [facility] Metoprolol Tartrate (Metoprolol Tartrate 25 Mg Tablet) 25 mg PO DAILY [facility]; Protocol Nystatin (Nystatin Powder 15 Gm Bottle) 1 appl TOPICAL TID [facility]; Protocol Last Admin: 05/09/25 21:49 Dose: 1 appl Documented By: RANULFO Oxycodone HCl (Oxycodone Hcl Immed Release 5 Mg Tablet) 5 mg PO Q8H PRN PRN Reason: Pain, Severe (Pain Scale 7-10) Rifaximin (Rifaximin 550 Mg Tablet) 550 mg PO BID [facility] Last Admin: 05/09/25 21:41 Dose: 550 mg Documented By: RANULFO Spironolactone (Spironolactone 25 Mg Tablet) 12.5 mg PO DAILY [facility]; Protocol Sucralfate (Sucralfate 1 Gm Tablet) 1 gm PO QIDACHS [facility] Thiamine HCl (Thiamine Hcl 100 Mg Tablet) 100 mg PO DAILY [facility] Labs 05/09/25 04:37 05/09/25 10:35 Labs: Laboratory Results - last 24 hr 05/08/25 05/09/25 05/09/25 11:06 10:35 11:33 Anion Gap 12 Estim Creat Clear Calc 51.6 Estimated GFR 52 POC Glucose 134 H Random Glucose 195 H Calcium 8.4 Total Bilirubin 1.1 H AST 33 H ALT < 6 Alkaline Phosphatase 44 Total Creatine Kinase 47 Total Protein 5.7 L Albumin 3.3 L Fld Lyme DNA (PCR) Lyme Disease DNA (PCR) NOT DETECTED 05/09/25 05/09/25 05/10/25 16:36 20:24 07:21 Anion Gap Estim Creat Clear Calc Estimated GFR POC Glucose 109 109 89 Random Glucose Calcium Total Bilirubin AST ALT Alkaline Phosphatase Total Creatine Kinase Total Protein Albumin Fld Lyme DNA (PCR) Lyme Disease DNA (PCR) Microbiology Microbiology Results: Microbiology 05/08/25 06:32 Blood Culture - Preliminary Blood - Venous Gram positive cocci 05/08/25 06:32 Blood Culture - Preliminary Blood - Venous Gram positive cocci 05/08/25 11:06 Gram Stain - Final Cerebrospinal Fluid Fluid Description - Final CSF Culture - Preliminary No growth after 1 day Assessment and Plan (1) Serum ammonia increased: Status: Acute Plan 79F PMH HCV/ETOH cirrhosis, mood disorder, chronic hypoxic respiratory failure due [facility], seizure disorder, presented with AMS, hypotension, admitted to ICU treated for hepatic encephalopathy and improved, course complicated by fevers, now downgraded to medical floor. acute metabolic encephalopathy due to HCV/ETOH cirrhosis with hepatic encephalopathy due to non compliance with lactulose now back to baseline continue lacutlose for 2-3 bm/day, rifaximin hypotension not due to sepsis, resolved fevers LP negative, no clear source of infection, possible aspiratoin pneumonitis blood cultures likely contaminant continue empiric rocephin for now, monitor chronic hypoxic respiratory failure due to copd on baseline 2L seizure disorder keppra morbid obesity weight loss dvt prophylaxis- lovenox full code reason for continued hospitalization:monitoring fevers Quality Stroke Does the patient have a stroke diagnosis?: No VTE Prior VTE?: No VTE Risk Level:: Medical - moderate - high VTE Device Contraindication: N/A - Device Ordered VTE Drug Contraindication: Treatment Not Tolerated
[2025-05-10] MEDS: guaiFENesin LA 600 MG TAB.ER.12H PO ×2 (09:06→20:39)
[2025-05-10] MEDS: oxyCODONE HCl Immed Release 5 MG TABLET PO (10:37)
[2025-05-10 11:21] LABS: Glucose, Whole Blood 107 mg/dL (60-115)
[2025-05-10 16:14] LABS: Glucose, Whole Blood 120 mg/dL (60-115)
[2025-05-10 20:25] LABS: Glucose, Whole Blood 124 mg/dL (60-115)
[2025-05-11 04:00] VITALS: BP 140/90; PULSE 82; RESP 20; TEMP 36.2; O2SAT 96
[2025-05-11 05:53] LABS: Anion Gap 11 (12-20); Blood Urea Nitrogen 18 mg/dL (9-16); Calcium 8.5 mg/dL (8.4-10.2); Carbon Dioxide 25 mmol/L (22-29); Chloride 106 mmol/L (96-108); Creatinine Clr Calc Pharmacy 61.7; Estimated Glomerular Filt Rate > 60; Magnesium 1.7 mg/dL (1.6-2.6); Potassium 3.3 mmol/L (3.3-5.1); Sodium 139 mmol/L (135-145)
[2025-05-11 06:14] LABS: Hemoglobin 7.2 g/dl (12.0-16.0); NRBC Abs Auto 0.000 X10*3/uL (0.0-0.012); NRBC Pct Auto 0.0 /100WBC (0.0-0.2); White Blood Count 2.8 X10*3/uL (4.8-10.8)
[2025-05-11 06:16] LABS: Hematocrit 24.5 % (37.0-47.0); Mean Corpuscular HGB Conc 29.4 g/dl (31.0-35.0); Mean Corpuscular Hemoglobin 22.6 pg (27.0-33.0); Mean Corpuscular Volume 76.8 fL (80.0-98.0); Red Blood Count 3.19 X10*6/uL (4.20-5.50)
[2025-05-11 06:53] LABS: PLT ABN DIST 1; Platelet Count 34 X10*3/uL (160-400)
[2025-05-11 07:28] VITALS: BP 155/93; PULSE 84; RESP 18; TEMP 36.6; O2SAT 95
[2025-05-11 07:37] LABS: Glucose, Whole Blood 91 mg/dL (60-115)
--- NOTE | 2025-05-11 08:18 | P.DS_ITS ---
DS: Providers Provider Date of Service: 05/11/25 Date of admission: 05/08/25 13:26 Date of discharge: 05/11/25 Primary care physician: Unknown Physician DS: Diagnosis Discharge Diagnosis (1) Serum ammonia increased: Status: Acute DS: Summary Hospital Course Hospital Course: from initial hpi: 79-year-old morbidly obese female [facility] found to be unresponsive and febrile send to the emergency room fingerstick glucose was adequate it vital signs were stable although initially she was somewhat hypotensive but has remained stable on low-dose of norepinephrine and apparently has a history of COPD/asthma for which she is on albuterol treatments and she has received several here because apparently although breathing on her own no apparent distress and clearly was not acutely hypercarbic on blood gas nurse significantly hypoxic so that not accounting for the encephalopathy and she was not acidotic and she had a low procalcitonin negative serum lactic acid chemistries with mild to moderate renal insufficiency but no metabolic decompensation and she is on a combination of a hydrocodone and also alprazolam along with which she takes atypical antipsychotics trazodone and excised talipes Gram and tizanidine and gabapentin Also note that she is on Keppra and a month ago she had a therapeutic Keppra level and CBC showed a white count of 8000 no particular left shift and on inspection besides a lot of diaphragmatic effort with prolonged expiratory time indicating some bronchospasm issues the chest x-ray looks either like it is bronchiolitic or there might be some interstitial fluid and she does have 1+ bilateral pretibial edema and my bedside echo shows excellent LV and RV function with no primary valve or pericardial disease but I could not image the inferior vena cava to declare fluid status but BNP was was mildly elevated at 415 but none of this is associated with the unresponsive state that she is in however there was 1 value that was abnormal and that was ammonia not terribly high but was at 79 I do not have any history of be no alcohol abuse or acetaminophen toxicity or any episodes of hepatitis in the past but she takes lactulose chronically in the penitentiary facility and this could easily be for chronic Nicole elevated ammonia or could just simply be for chronic constipation I do not know but it is the only value that we can treat and we were able to obtain cerebrospinal fluid because I see no other portal of entry and I do not think there is evidence of a clinical serotonin or neuroleptic malignant syndrome her muscle tone is normal her reflexes are equal bilaterally in 2+ no clonus no rigidity CPK is pending because we do have a nonspecific elevation of her troponins hospital course: Patient was admitted for acute metabolic encephalopathy due to hepatitis-C and alcohol cirrhosis with hepatic encephalopathy due to noncompliance with lactulose. She was admitted to the intensive care unit and treated with lactulose with improvement in mental status. Initially presented with hypotension not due to sepsis was eventually weaned off pressors and restarted on antihypertensives. Patient had fevers during admission not due to sepsis likely aspiration pneumonitis, blood cultures grew suspected contaminant, LP was negative. Was treated with a few days of empiric ceftriaxone and fevers resolved. For chronic hypoxic respiratory failure due to COPD remained on baseline 2 L. For seizure disorder continued Keppra. For morbid obesity weight loss recommended. Patient is back to her baseline and will be discharged home. She is instructed to be compliant with lactulose and aim for 2-3 bowel movements per day. She has also been started on rifaximin. Time Attestation Discharge Coordination Time (in mins): 33 Quality: Safe Use of Opioids Does Pt have an Active Cancer Diagnosis on the Problem List?: No Quality: Stroke Does the patient have a stroke diagnosis?: No Physical Exam Vital Signs: Vital Signs: Last Vital Signs Temp 97.8 F 05/11/25 07:28 Pulse 84 05/11/25 07:28 Resp 18 05/11/25 07:28 BP 155/93 H 05/11/25 07:28 Pulse Ox 95 05/11/25 07:28 O2 Del Method Nasal Cannula 05/11/25 07:28 O2 Flow Rate 1.0 05/11/25 07:28 Oxygen Flow Rate 6 05/08/25 06:27 BMI result Body Mass Index 40.8 General: AO X 3, no acute distress, enuecleated right eye Resp: CTA bilateral, no accessory muscles used CVS: S1,S2,RRR GI: soft, non tender, non distended Neuro: motor grossly intact, alert Psych: appropriate affect, appropriate insight DS: Data Data Completed and Pending Completed studies during hospitalization [Text1]: Procedures Assistance with Respiratory Ventilation, Less than 24 Consecutive Hours, Continuous Positive Airway Pressure (06/28/23) Control Bleeding in Gastrointestinal Tract, Via Natural or Artificial Opening Endoscopic (03/31/25) Excision of Stomach, Pylorus, Via Natural or Artificial Opening Endoscopic, Diagnostic (03/31/25) Insertion of Infusion Device into Right Basilic Vein, Percutaneous Approach (03/31/25) Transfusion of Nonautologous Red Blood Cells into Peripheral Vein, Percutaneous Approach (03/31/25) Labs on day of discharge: Laboratory Results - last 24 hr 05/10/25 05/10/25 05/10/25 11:17 16:10 20:19 WBC RBC Hgb Hct MCV MCH MCHC RDW Plt Count MPV Absolute Nucleated RBC Nucleated RBC % (auto) Sodium Potassium Chloride Carbon Dioxide Anion Gap BUN Creatinine Estim Creat Clear Calc Estimated GFR POC Glucose 107 120 H 124 H Random Glucose Calcium Magnesium 05/11/25 05/11/25 05:19 07:32 WBC 2.8 L RBC 3.19 L Hgb 7.2 L Hct 24.5 L MCV 76.8 L MCH 22.6 L MCHC 29.4 L RDW 19.3 H Plt Count 34 L MPV Not Reportable Absolute Nucleated RBC 0.000 Nucleated RBC % (auto) 0.0 Sodium 139 Potassium 3.3 Chloride 106 Carbon Dioxide 25 Anion Gap 11 L BUN 18 H Creatinine 0.90 Estim Creat Clear Calc 61.7 Estimated GFR > 60 POC Glucose 91 Random Glucose 94 Calcium 8.5 Magnesium 1.7 Preliminary micro results at discharge 05/08/25 06:32 Blood Culture - Preliminary Blood - Venous Gram positive cocci 05/08/25 06:32 Blood Culture - Preliminary Blood - Venous Gram positive cocci Discharge Plan Discharge Anticipated Discharge Date/Time: 05/11/25 08:15 Patient Disposition: Home, Self-Care Discharge Diagnosis: hepatic encephalopathy Referrals: Physician,Unknown J [Primary Care Provider, Medical] - 1 Week Discharge Medications: New Xifaxan 550 mg Tablet 550 mg PO BID 90 Days Qty: 180 0RF Continued multivitamin Tablet 1 tab PO DAILY trazodone 50 mg Tablet 50 mg PO BEDTIME cetirizine 10 mg Tablet 10 mg PO DAILY levetiracetam [Keppra] 500 mg Tablet 500 mg PO BID thiamine HCl (vitamin B1) 100 mg Tablet 100 mg PO DAILY alprazolam [Xanax] 0.25 mg Tablet 0.25 mg PO BID magnesium hydroxide [Milk of Magnesia] 400 mg/5 mL Suspension 30 ml PO DAILY PRN (Reason: Constipation) bisacodyl 10 mg Suppository 10 mg ME DAILY PRN (Reason: Constipation) Rx Instructions: no BM for 8 hours after MOM pantoprazole 40 mg Tablet,Delayed Release (Dr/Ec) 40 mg PO DAILY@0630 [place] Enema 19-7 gram/118 mL Enema 118 ml ME DAILY PRN (Reason: Constipation) Rx Instructions: no BM for 8 hours after bisacodyl supp gabapentin 300 mg Capsule 300 mg PO TID bisacodyl [Dulcolax (bisacodyl)] 5 mg Tablet,Delayed Release (Dr/Ec) 5 mg PO DAILY fluticasone propionate [Flonase Allergy Relief] 50 mcg/actuation [place],Suspension 1 spray INTRANASAL BID Rx Instructions: administer into each nostril metoprolol tartrate 25 mg Tablet 25 mg PO DAILY lactulose 10 gram/15 mL Solution 45 ml PO TID Muscle Rub 15-10 % Cream 1 appl TOPICAL DAILY PRN (Reason: neck pain) Rx Instructions: apply to neck diclofenac sodium 1 % Gel 4 g TOPICAL QID PRN (Reason: Pain) Rx Instructions: apply to hips ipratropium-albuterol 0.5 mg-3 mg(2.5 mg base)/3 mL Solution For Nebulization 3 ml INHALATION Q6H PRN (Reason: Shortness Of Breath Or Wheezing) tizanidine 2 mg Tablet 2 mg PO Q8H PRN (Reason: Muscle Spasm) guaifenesin [Mucinex] 600 mg Tablet Extended Release 12hr 600 mg PO BID Qty: 20 0RF furosemide 40 mg tablet 40 mg PO BID benzonatate 200 mg Capsule 200 mg PO TID albuterol sulfate 90 mcg/actuation Hfa Aerosol Inhaler 1 inh INHALATION BID oxycodone 5 mg tablet 5 mg PO Q8H PRN (Reason: Pain) nystatin 100,000 unit/gram Powder 1 appl TOPICAL BID PRN (Reason: Skin Irritation) Rx Instructions: APPLY TO UNDER BREST REDNESS white petrolatum-mineral oil Ointment 1 appl ophthalmic-Left BEDTIME guaifenesin [[place]-Tussin] 100 mg/5 mL Liquid 200 mg PO Q6H PRN (Reason: Cough) spironolactone 25 mg Tablet 12.5 mg PO DAILY hydroxyzine HCl 25 mg Tablet 25 mg PO Q8H PRN (Reason: rash/itching) escitalopram oxalate 10 mg Tablet 15 mg PO DAILY cyclosporine [Restasis] 0.05 % Dropperette 1 drp ophthalmic-Left BID Trelegy Ellipta 200-62.5-25 mcg blister with device 1 ea inhalation DAILY sucralfate 1 gram Tablet 1 g PO QIDACHS Qty: 120 0RF Discharge Orders: Discharge Order (Routine); Ordered 05/11/25 Ordered By: Jovany Poe Diet: Advance to usual diet Activity on Discharge: As tolerated Stand Alone Forms: Patient Portal Discharge page Print Language: Irish Care Plan Goals: Avoid encephalopathy Health Concerns: Hepatic encephalopathy Plan of Treatment: Continue lactulose, titrate dose to aim for 2-3 bowel movements per day Assessment: See above
[2025-05-11] MEDS: Albuterol/Iprat 2.5/0.5MG 3 ML AMPUL.NEB INHALE ×2 (08:19→11:51)
[2025-05-11 08:20] VITALS: PULSE 84; RESP 18; O2SAT 95
[2025-05-11] MEDS: Potassium Chloride ER 20 MEQ TAB.ER.PRT 40 MEQ PO (08:53)
[2025-05-11] MEDS: guaiFENesin LA 600 MG TAB.ER.12H PO (08:55)
[2025-05-11 11:30] LABS: Glucose, Whole Blood 93 mg/dL (60-115)
--- NOTE | 2025-05-11 11:40 | MHC.CM.PN ---
PT CLEARED TO RETURN TO [facility] TODAY TRANSPORT BOOKED FOR 1330 HOURS WITH DAMIR CALHOUN
[2025-05-11 11:53] VITALS: PULSE 71; RESP 18; O2SAT 98
[2025-05-11 13:32] VITALS: BP 127/70; PULSE 75; RESP 18; TEMP 36.2; O2SAT 92
== END 2025-05-11 13:39 | disposition skilled nursing facility (03) | DRG 441 ==
LOC: HO.ED 08:43 → HO.EDOVER 13:27 → HO.ICU 13:32 → HO.S3 05-09 15:12
PROVIDERS: Emergency Medicine; Registered Nurse Community Health; Admitting Provider Internal Medicine Cardiovascular Disease; Emergency Provider Emergency Medicine Emergency Medical Services; PCP Internal Medicine; Visit Provider Internal Medicine
DX: K76.82 Hepatic encephalopathy (principal); G93.41 Metabolic encephalopathy; J96.21 Acute and chronic respiratory failure with hypoxia; J96.22 Acute and chronic respiratory failure with hypercapnia; Z68.41 Body mass index [BMI] 40.0-44.9, adult; J44.1 Chronic obstructive pulmonary disease with (acute) exacerbation; E87.6 Hypokalemia; B18.2 Chronic viral hepatitis C; Z99.81 Dependence on supplemental oxygen; I95.9 Hypotension, unspecified; E66.01 Morbid (severe) obesity due to excess calories; J44.9 Chronic obstructive pulmonary disease, unspecified; Z71.3 Dietary counseling and surveillance; G40.909 Epilepsy, unspecified, not intractable, without status epilepticus; Z91.148 Patient's other noncompliance with medication regimen for other reason; Z20.822 Contact with and (suspected) exposure to COVID-19; Z90.01 Acquired absence of eye; Z87.891 Personal history of nicotine dependence; Z79.899 Other long term (current) drug therapy
CPT/HCPCS: 36415; 70450; 71045; 71250; 74176; 76705; 80048; 80053; 80076; 80307; 81001; 82140; 82550; 82803; 82945; 82947; 83605; 83690; 83735; 83880; 84100; 84145; 84157; 84443; 84484; 85025; 85027; 87015; 87040; 87070; 87186; 87205; 87476; 87637; 89051; 93005; 93306; 93971; 94640; 99285; J0131; J0696; J1335; J1650; J1938; J1953; J3373; J3374; J7120; P9047; Q9957

== ENCOUNTER → 2025-05-08 06:26 | Outpatient (BNV) | payer MEDICARE, MEDICAID, SELFPAY | PROVIDERS: Emergency Provider Emergency Medicine Emergency Medical Services; Visit Provider Radiology Diagnostic Radiology | DX: K74.60 Unspecified cirrhosis of liver (principal); M84.68XA Pathological fracture in other disease, other site, initial encounter for fracture; J98.09 Other diseases of bronchus, not elsewhere classified; I51.7 Cardiomegaly; R41.82 Altered mental status, unspecified | CPT/HCPCS: 71045 ==

== ENCOUNTER → 2025-05-08 06:26 | Outpatient (BNV) | payer MEDICARE, MEDICAID, SELFPAY | PROVIDERS: Emergency Provider Emergency Medicine Emergency Medical Services; Visit Provider Internal Medicine Cardiovascular Disease | DX: I49.3 Ventricular premature depolarization (principal); R00.0 Tachycardia, unspecified | CPT/HCPCS: 93010 ==

== ENCOUNTER 2025-05-08 13:26 | Outpatient (BNV) | payer MEDICARE, MEDICAID, SELFPAY | END 2025-05-09 20:36 | PROVIDERS: Admitting Provider Internal Medicine Cardiovascular Disease; Emergency Provider Emergency Medicine Emergency Medical Services; Visit Provider Student in an Organized Health Care Education/Training Program | DX: R22.42 Localized swelling, mass and lump, left lower limb (principal) | CPT/HCPCS: 93971 ==

== ENCOUNTER 2025-05-08 13:26 | Outpatient (BNV) | payer MEDICARE, MEDICAID, SELFPAY | END 2025-05-09 06:09 | PROVIDERS: Admitting Provider Internal Medicine Cardiovascular Disease; Emergency Provider Emergency Medicine Emergency Medical Services; Visit Provider Internal Medicine Cardiovascular Disease | DX: I35.0 Nonrheumatic aortic (valve) stenosis (principal); I34.81 Nonrheumatic mitral (valve) annulus calcification; I51.7 Cardiomegaly; R94.31 Abnormal electrocardiogram [ECG] [EKG] | CPT/HCPCS: 93010; 93306 ==

== ENCOUNTER → 2025-05-08 13:26 | Outpatient (BNV) | payer MEDICARE, MEDICAID, SELFPAY | PROVIDERS: Admitting Provider Internal Medicine Cardiovascular Disease; Emergency Provider Emergency Medicine Emergency Medical Services; Visit Provider Internal Medicine Cardiovascular Disease | DX: K72.91 Hepatic failure, unspecified with coma (principal); A41.9 Sepsis, unspecified organism; R65.20 Severe sepsis without septic shock; R79.89 Other specified abnormal findings of blood chemistry; E72.20 Disorder of urea cycle metabolism, unspecified; G93.41 Metabolic encephalopathy; J44.1 Chronic obstructive pulmonary disease with (acute) exacerbation; J96.21 Acute and chronic respiratory failure with hypoxia; J96.22 Acute and chronic respiratory failure with hypercapnia; K65.2 Spontaneous bacterial peritonitis; K74.60 Unspecified cirrhosis of liver; B19.20 Unspecified viral hepatitis C without hepatic coma | CPT/HCPCS: 99223; 99291 ==

== ENCOUNTER → 2025-05-08 13:26 | Outpatient (BNV) | payer MEDICARE, MEDICAID, SELFPAY | PROVIDERS: Admitting Provider Internal Medicine Cardiovascular Disease; Emergency Provider Emergency Medicine Emergency Medical Services; Visit Provider Internal Medicine | DX: E72.20 Disorder of urea cycle metabolism, unspecified (principal) | CPT/HCPCS: 99233 ==

== ENCOUNTER 2025-06-17 11:20 | Outpatient (AMB) | payer MEDICARE, MEDICAID, SELFPAY ==
--- NOTE | 2025-06-17 11:25 | A.OFFVIS_ITS ---
Vital Signs 06/17/25 11:35 Height 5 ft 5 in Weight 205 lb BMI 34.1 BP 146/67 H Blood Pressure Location Lt brachial Position Sitting Pulse 65 Pulse Oximetry (%) 100 Oxygen Delivery Method Nasal Cannula Oxygen Flow Rate 2 Intake Visit Reasons: Cirrohis f/u Intake Note: Patient follow up for Cirrhosis. Patient cc: diarrhea on and off after meal. Denies any other GI issues. 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 EGD 04/02/2025: Flat varices. Portal hypertensive gastropathy. Gave. Portal hypertensive duodenopathy. Hemoglobin on discharge was 9.4, that has slowly trended down to 7.2 last month. No further labs available from this month. She is here today from rehab on a stretcher accompanied by EMT. Reports no abdominal pain, nausea, vomiting, change in appetite. [facility] Medical History (Updated 06/17/25 @ 13:19 by Rosa Russell MD) Hypercapnia COPD (chronic obstructive pulmonary disease) Hepatitis C test positive Cirrhosis of liver without ascites Serum ammonia increased Cirrhosis FH: cholecystectomy Hepatitis C Splenomegaly Type 2 diabetes mellitus Morbid obesity CHF (congestive heart failure) Surgical History H/O enucleation of right eyeball Hx of appendectomy History of hip replacement Social History Household Members: Unknown / Unable to assess Housing: Assisted Living Facility Do you presently have visiting nurse or other home services: Yes Unable to assess alcohol history related to: Unable to respond Alcohol intake: former Patient Tobacco Use Status: Former Tobacco user Tobacco use type: Cigarette Cigarette Packs Per Day: 1 Cigarettes Per Day: 20.0 Years Smoked: 30 Second Hand Smoke Exposure: No Advance Directives Date on File: 08/29/23 service: No Review of Systems Const All systems reviewed & are unremarkable except as noted in HPI and below Physical Exam Exam Exam: Elderly female No acute distress Nonicteric Abdomen soft, distended, nontender, positive fluid thrill Minimal nonpitting pedal edema Vital Signs: Last Vital Signs Pulse 65 06/17/25 11:35 BP 146/67 H 06/17/25 11:35 Pulse Ox 100 06/17/25 11:35 Oxygen Delivery Method Nasal Cannula 06/17/25 11:35 Oxygen Flow Rate 2 06/17/25 11:35 BMI result Body Mass Index 34.1 Gen Appear: NAD, well nourished, undernourished HEENT: No scleral icterus, no bitemporal wasting noted Chest: CTA CVS: Regular S1/S2 no murmurs Abd: soft, nontender, nondistended, no shifting dullness to percussion, bowel sounds active Ext: No peripheral edema bilaterally Neuro: A/Ox3, no asterixis Derm: []Spider angioma and palmar erythema noted Assessment & Plan Assessment & Plan (1) Cirrhosis of liver without ascites: Code(s): K74.60 - Unspecified cirrhosis of liver Category: Medical (2) Anemia: Code(s): D64.9 - Anemia, unspecified Category: Medical (3) GAVE (gastric antral vascular ectasia): Code(s): K31.819 - Angiodysplasia of stomach and duodenum without bleeding Category: Medical (4) Ascites: Code(s): R18.8 - Other ascites Category: Medical Plan Patient with known gave with spontaneous oozing during endoscopy. Suspect catina ntrending H&H is likely secondary to this. Will need repeat EGD with hemostasis. Will get updated labs. In addition, also noted to have ascites on exam. Ultrasound ordered for evaluation. Depending on results, will prescribe spironolactone monotherapy versus combination with furosemide. Plan: - Labs as below - EGD to be booked - US abd Follow up after egd Orders: Orders Prothrombin Time INR Today K74.60 - Unspecified cirrhosis of liver Complete Blood Count no Diff Today K74.60 - Unspecified cirrhosis of liver Comprehensive Met. Panel Today K74.60 - Unspecified cirrhosis of liver Coding Level of Care Code Est Pt Level 4 (25972) Diagnoses Cirrhosis of liver without ascites K74.60 Anemia D64.9 GAVE (gastric antral vascular ectasia) K31.819 Ascites R18.8
[2025-06-17 11:35] VITALS: BP 146/67; PULSE 65; O2SAT 100; BMI 34.1
--- OUTSIDE RECORDS SUMMARY | 2025-06-17 12:00 | XMS_ITS | Clinical Summary ---
Author Organization [facility] Facility Address [address] [address] Care Team Providers Care Cable Supervisor Name Role Phone Alex Chappell NP Primary Care Provider [phone] Medications ALPRAZolam (XANAX) 0.5 MG tablet Take [...] Hemoglobin A1C 06/03/2025 03/04/2025, 01/06 Influenza Vaccine (#1) 2025 08/25/2018, 2016 Pneumococcal Vaccine: 50+ Years Completed 08/25/2018, 10/10/2015, 08/06/2012, Additional history exists Insurance [facility] ([id number]) [facility] ([id number]) Care Teams Cable Supervisor Relationship Specialty Start Date End Date Alex Chappell NP [address] [place] [address] PCP - General Nurse Practitioner 11/07/20
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
--- OUTSIDE RECORDS SUMMARY | 2025-06-17 12:00 | XMS_ITS | Clinical Summary ---
Author Organization [facility] Address [address] [place] [id number] Care Team Providers Care Senior Media Planner Name Role Phone Javier Villalba MD Primary Care Provider [phone] Allergies Active Allergy Reactions Criticality Noted Date [...] - 1-dose 75+ series) 2021 Influenza Vaccine (#1) 2025 8, 09/07/2017, 09/23/2016, Additional history exists DTap / Tdap / Td (2 - Td or Tdap) 01/10/2029 01/10/2019, 08/25/2018 Pneumococcal Vaccine Completed 08/25/2018, 10/10/20 15 Hepatitis B Vaccines Aged Out No long er eligible based on patient's age to complete this topic RSV Ped < 20 months Aged Out No longe r eligible based on patient's age to complete this topic Care Teams Senior Media Planner Relationship Specialty Start Date End Date Javier Villalba MD [address] [place] [address] PCP - General Internal Medicine 10/24/19
--- OUTSIDE RECORDS SUMMARY | 2025-06-17 12:00 | XMS_ITS | Clinical Summary ---
Author Organization [facility] Address [address] [facility] [address] [place] [phone] Phone Care Team Providers Care Labor Operator Name Role Phone Unknown, Unknown Primary Care Provider Herlinda boggs Social History Tobacco Use Types Packs/Day Years Used Date Smoking Tobacco: Never Assessed Education Answer Date Recorded Are you interested in more education? Not on torrey e 03/04/2023 Are you concerned about learning? Not on file 03/04/2023 No 03/04/2023 No 03/04/2023 Digital Access Answer Date Recorded No 04/02/2023 No 04/02/2023 No 04/02/2023 Reliable internet access at home? Not on file 04/02/2023 Device with a working camera? Not on file Comments Unknown Sex and Gender Information Value Date Recorded Sex Assigned at Not on file Legal Sex Female 11:44 AM EDT Gender Identity Not on file Sexual Orientation Not on file Plan of Treatment Health Maintenance Due Date Last Done Comments LIPID PANEL 1946 DEPRESSION SCREENING 1958 SMOKING Hx and SMOKELESS TOBACCO SCREENING 1959 HEPATITIS C SCREENING 1964 ZOSTER VACCINES (1 of 2) 1996 OSTEOPOROSIS SCREENING INITI AL (ONE-TIME) 2011 RSV VACCINE (1 - 1-dose 75+ series) 2021 COVID-19 VACCINE (2023-2 5 season) 2024 03/30/2022, 01/31/2021, 01/03/2021 Adult Td,Tdap Booster 01/10/2029 01/10/2019 , 08/25/2018 PNEUMOCOCCAL VACCINES (50+ years) Completed 08/25/2018, 10/10/2015 HEPATITIS A VACCINES Aged Out 03/20/2019 No long er eligible based on patient's age to complete this topic HIB VACCINES Aged Out No longer eligi ble based on patient's age to complete this topic MENINGOCOCCAL VACCINES (ACWY) Aged Out No longer eligible based on patient's age to complete this topic MENINGOCOCCAL VACCINES (B) Aged Out N o longer eligible based on patient's age to complete this topic Medical Devices Not on file Insurance MEDICARE REPLACEMENT Member Subscriber Plan / Payer (Ef fective 2015-Present) Name:Sarai Mederos Relation to Subscriber:Self Name:Sarai Mederos Payer ID:[id number] (NAIC) Group ID:Not on file Type:Medicare Address: [place] [phone] MEDICARE REPLACEMENT MEDICARE REPLACEMENT MEDICARE REPLACEMENT MEDICARE REPLACEMENT MEDICARE REPLACEMENT MEDICARE REPLACEMENT MEDICARE REPLACEMENT MEDICARE REPLACEMENT Care Teams Labor Operator Relationship Specialty Start Date End Date Unknown, Unknown, PCP - General 02/09/19 Additional Source Comments The information contained in this document represents components of the legal health record. It is not the complete legal health record.[facility]
--- OUTSIDE RECORDS SUMMARY | 2025-06-17 12:00 | XMS_ITS | Encounter Summary ---
Author Organization [facility] Address [address] [place] [address] Care Team Providers Care Information Tech Name Role Phone Antonia Celaya MD Primary Care Provider + Encounter Details Date Type Department Care Team (Late st Contact Info) Description 11/09/2024 Lab Requisition [facility] - Main Lab [address] [place] [address] Antonia Celaya MD [address] [facility] [address] [place], [place] [id number] Abnormal weight gain Social History Tobacco Use Types Packs/Day Years Used Date Smoking Tobacco: Some Days Cigarettes 0.2 48.7 Started: 1975 Smokeless Tobacco: Never Alcohol Use [...] Procedure Name Priority Date/Time Associated Diagnosis Comments COMPREHENSIVE METABOLIC PANEL Routine 11/09/2024 1:36 PM EST Abnormal weight gain documented in this encounter Results * (ABNORMAL) Comprehensive metabolic panel (11/09/2024 1:36 PM EST) Sodium 138 133 - 145 mmol/L LAB CHEMISTRY METHOD 11/09/2024 2:56 PM EST [facility] Potassium 4.2 3.5 - 5.5 mmol/L LAB CHEMISTRY METHOD 11/09/2024 2:56 PM [facility] Chloride 105 96 - 110 mmol/L LAB CHEMISTRY METHOD 11/09/2024 2:56 PM [facility] CO2 28 21 - 32 mmol/L LAB CHEMISTRY METHOD 11/09/2024 2:56 PM [facility] Anion Gap 5 3 - 11 LAB CHEMISTRY METHOD 11/09/2024 2:56 PM [facility] Glucose 174(H) 70 - 100 mg/dL LAB CHEMISTRY METHOD 11/09/2024 2:56 PM [facility] BUN 34(H) 5 - 25 mg/dL LAB CHEMISTRY METHOD 11/09/2024 2:56 PM [facility] Creatinine 1.65(H) 0.50 - 1.10 mg/dL LAB CHEMISTRY METHOD 11/09/2024 2:56 PM [facility] eGFR 32(L) >=60 mL/min/1. 73m2 LAB CHEMISTRY METHOD 11/09/2024 2:56 PM [facility] Comment:Calculation based on the Chronic Kidney Disease Epidemiology Collaboration (CKD-EPI) equation refit without adjustment for race. BUN/Creatinine Ratio 20.6 LAB CHEMISTRY METHOD 11/09/2024 2:56 PM [facility] Calcium 8.6 8.5 - 10.5 mg/dL LAB CHEMISTRY METHOD 11/09/2024 2:56 PM [facility] AST (SGOT) 29 10 - 42 unit/L LAB CHEMISTRY METHOD 11/09/2024 2:56 PM [facility] ALT (SGPT) 11 10 - 60 unit/L LAB CHEMISTRY METHOD 11/09/2024 2:56 PM [facility] Alkaline Phosphatase 82 42 - 121 unit/L LAB CHEMISTRY METHOD 11/09/2024 2:56 PM [facility] Total Protein 5.9(L) 6.0 - 8.0 g/dL LAB CHEMISTRY METHOD 11/09/2024 2:[address] [facility] Albumin 3.0(L) 3.2 - 5.0 g/dL LAB CHEMISTRY METHOD 11/09/2024 2:[address] [facility] Total Bilirubin 0.7 0.0 - 1.4 mg/dL LAB CHEMISTRY METHOD 11/09/2024 2:[address] [facility] Blood Venous blood specimen / Unknown 11/09/2024 1:36 PM EST 11/09/2024 2:18 PM EST us Antonia Celaya MD LAB BLOOD ORDERABLES Fin al Result [facility] [address] [place] [address], documented in this encounter Visit Diagnoses Diagnosis Abnormal weight gain documented in this encounter Additional Health Concerns Infection Onset Date Last Indicated Resolved Time Influenza 01/11/2025 01/11/2025 02/04/2025 7:05 PM EDT documented as of this encounter Care Teams Information Tech Relationship Specialty Start Date End Date Antonia Celaya MD [address] [place] [id number] PCP - General Family Medicine 11/11/24 documented as of this encounter
== END 2025-06-17 11:55 | disposition home or self-care (01) ==
LOC: HO.HGI 11:20
PROVIDERS: PCP Internal Medicine; Visit Provider Internal Medicine
DX: K74.60 Unspecified cirrhosis of liver (principal); D64.9 Anemia, unspecified; K31.819 Angiodysplasia of stomach and duodenum without bleeding; R18.8 Other ascites
CPT/HCPCS: 99214

== ENCOUNTER → 2025-06-17 11:20 | Outpatient (BNVA) | payer MEDICARE, MEDICAID, SELFPAY | PROVIDERS: PCP Internal Medicine; Visit Provider Internal Medicine | DX: K74.60 Unspecified cirrhosis of liver (principal); D64.3 Other sideroblastic anemias; K31.811 Angiodysplasia of stomach and duodenum with bleeding | CPT/HCPCS: 99212 ==

== ENCOUNTER 2025-06-21 12:57 | Emergency (ER) | payer MEDICARE, MEDICAID, SELFPAY ==
[2025-06-21] VITALS (15 sets, daily range): BP systolic 92–126; BP diastolic 38–64; PULSE 70–80; RESP 15–20; TEMP 36.6–37.1; O2SAT 96–100; BMI 85.1
--- OUTSIDE RECORDS SUMMARY | 2025-06-21 13:38 | XMS_ITS | Clinical Summary ---
Author Organization [facility] Facility Address [address] [address] Care Team Providers Care Cardiology Clinical Nurse Specialist Name Role Phone Alex Chappell NP Primary Care Provider [phone] Medications ALPRAZolam (XANAX) 0.5 MG tablet Take [...] 08/25/2018, 10/10/2015, 08/06/2012, Additional history exists Insurance [id number] Care Teams Cardiology Clinical Nurse Specialist Relationship Specialty Start Date End Date Alex Chappell NP [address] [place] [address] PCP - General Nurse Practitioner 11/07/20
--- OUTSIDE RECORDS SUMMARY | 2025-06-21 13:38 | XMS_ITS | Clinical Summary ---
Author Organization [facility] Address [address] [place] [address] Care Team Providers Care Roving Machine Operator Name Role Phone Javier Villalba MD Primary Care Provider [phone] Allergies Active Allergy Reactions Criticality Noted Date [...] age to complete this topic Care Teams Roving Machine Operator Relationship Specialty Start Date End Date Javier Villalba MD [address] [place] [address] PCP - General Internal Medicine 10/24/19
--- OUTSIDE RECORDS SUMMARY | 2025-06-21 13:38 | XMS_ITS | Clinical Summary ---
Author Organization [facility] Address [address] [facility] [address] [place] [phone] Phone Care Team Providers Care Civil Preparedness Officer Name Role Phone Unknown, Unknown Primary Care [...] (NAIC) Group ID:Not on file Type:Medicare Address: [place] [id number] MEDICARE REPLACEMENT MEDICARE REPLACEMENT MEDICARE REPLACEMENT MEDICARE REPLACEMENT MEDICARE REPLACEMENT MEDICARE REPLACEMENT MEDICARE REPLAC[place] [address] Care Teams Civil Preparedness Officer Relationship Specialty Start Date End Date Unknown, Unknown, PCP - General 02/09/19 Additional Source Comments The information contained in this document represents components of the legal health record. It is not the complete legal health record.[facility]
--- OUTSIDE RECORDS SUMMARY | 2025-06-21 13:38 | XMS_ITS | Encounter Summary ---
Author Organization [facility] Address [address] [place] [address] Care Team Providers Care Bottom Finisher Name Role Phone Antonia Celaya MD Primary Care Provider + Encounter Details Date Type Department Care Team (Late st Contact Info) Description 06/14/2025 Lab Requisition [facility] - Main Lab [address] [place] [address] Antonia Celaya MD [address] [facility] [address] [place], [place] [phone] Other specified polyneuropathies Social History Tobacco Use [...] Priority Date/Time Associated Diagnosis Comments AMMONIA Routine 06/17/2025 10:20 AM EDT Other specified polyneuropathies documented in this encounter Results * Ammonia (06/17/2025 10:20 AM EDT) Ammonia 25 11 - 35 mcmol/L LAB CHEMISTRY METHOD 06/17/2025 11:51 AM EDT [facility] ([facility]) [facility] Blood Venous blood specimen / Unknown Venipuncture / Unknown 06/17/2025 10:20 AM EDT 06/17/2025 11:12 AM EDT us Antonia Celaya MD LAB BLOOD ORDERABLES Fin al Result [facility] ([facility]) [facility] [address] [place] [address], documented in this encounter Visit Diagnoses Diagnosis Other specified polyneuropathies documented in this encounter Care Teams Bottom Finisher Relationship Specialty Start Date End Date Antonia Celaya MD [address] [address] PCP - General Family Medicine 11/11/24 documented as of this encounter
--- NOTE | 2025-06-21 13:55 | ED.GENADULT ---
HPI - General Adult General Chief complaint: Recheck/Abnormal Lab/Rx Stated complaint: ? BLOOD TRANSFUSION PER EMS Time Seen by Provider: 06/21/25 13:41 Source: patient, EMS, RN notes reviewed and old records reviewed Mode of arrival: EMS Limitations: physical limitation (nonambulatory at baseline) History of Present Illness ED Provider: Mao HPI narrative: Patient is a 79-year-old female with history of cirrhosis of liver, esophageal varices, chronic lung disease, anemia, HF, COPD on O2 @ baseline, CKD, T2DM presenting to the ED via EMS from [facility] for anemia noted on labs drawn this morning with H&H of 6.0/21.1. Patient denies any abdominal pain, recent vomiting, hematochezia or melena. She denies chest pain, palpitations, dyspnea. Denies dizziness or lightheadedness. Denies any headache. MD complaint: anemia Related Data Home Medications ?Medication ?Instructions ?Recorded ?Confirmed alprazolam 0.25 mg tablet (Xanax) 0.25 mg PO BID Anxiety 06/28/23 05/08/25 bisacodyl 10 mg rectal suppository 10 mg UT DAILY PRN Constipation 06/28/23 05/08/25 bisacodyl 5 mg tablet,delayed 5 mg PO DAILY 06/28/23 05/08/25 release (Dulcolax (bisacodyl)) cetirizine 10 mg tablet 10 mg PO DAILY 06/28/23 05/08/25 diclofenac sodium 1 % topical gel 4 g topical QID PRN Pain 06/28/23 05/08/25 fluticasone propionate 50 1 spray intranasal BID 06/28/23 05/08/25 mcg/actuation nasal spray,suspension (Flonase Allergy Relief) gabapentin 300 mg capsule 300 mg PO TID 06/28/23 05/08/25 ipratropium 0.5 mg-albuterol 3 mg 3 ml inhalation Q6H PRN Shortness 06/28/23 05/08/25 (2.5 mg base)/3 mL nebulization Of Breath Or Wheezing soln lactulose 10 gram/15 mL oral 45 ml PO TID 06/28/23 05/08/25 solution levetiracetam 500 mg tablet 500 mg PO BID 06/28/23 05/08/25 (Keppra) magnesium hydroxide 400 mg/5 mL 30 ml PO DAILY PRN Constipation 06/28/23 05/08/25 oral suspension (Milk of Magnesia) methyl salicylate 15 %-menthol 10 1 appl topical DAILY PRN neck pain 06/28/23 05/08/25 % topical cream (Muscle Rub) metoprolol tartrate 25 mg tablet 25 mg PO DAILY 06/28/23 05/08/25 multivitamin 1 tab PO DAILY 06/28/23 05/08/25 pantoprazole 40 mg tablet,delayed 40 mg PO DAILY@0630 06/28/23 05/08/25 release sodium phosphates 19 gram-7 118 ml UT DAILY PRN Constipation 06/28/23 05/08/25 gram/118 mL enema (Fleet Enema) thiamine HCl (vitamin B1) 100 mg 100 mg PO DAILY 06/28/23 05/08/25 tablet tizanidine 2 mg tablet 2 mg PO Q8H PRN Muscle Spasm 06/28/23 05/08/25 trazodone 50 mg tablet 50 mg PO BEDTIME 06/28/23 05/08/25 cyclosporine 0.05 % eye drops in a 1 drp ophthalmic-Left BID 04/01/25 05/08/25 dropperette (Restasis) escitalopram oxalate 10 mg tablet 15 mg PO DAILY 04/01/25 05/08/25 fluticasone fur. 200 mcg-umeclid 1 ea inhalation DAILY 04/01/25 05/08/25 62.5 mcg-vilant 25 mcg inhalat.powder (Trelegy Ellipta) guaifenesin 100 mg/5 mL oral 200 mg PO Q6H PRN Cough 04/01/25 05/08/25 liquid (Camryn-Tussin) hydroxyzine HCl 25 mg tablet 25 mg PO Q8H PRN rash/itching 04/01/25 05/08/25 spironolactone 25 mg tablet 12.5 mg PO DAILY 04/01/25 05/08/25 white petrolatum-mineral oil eye 1 appl ophthalmic-Left BEDTIME 04/01/25 05/08/25 ointment albuterol sulfate 90 mcg/actuation 1 inh inhalation BID 05/08/25 05/08/25 aerosol inhaler benzonatate 200 mg capsule 200 mg PO TID 05/08/25 05/08/25 furosemide 40 mg tablet 40 mg PO BID 05/08/25 05/08/25 nystatin 100,000 unit/gram topical 1 appl topical BID PRN Skin 05/08/25 05/08/25 powder Irritation oxycodone 5 mg tablet 5 mg PO Q8H PRN Pain 05/08/25 05/08/25 Previous Rx's ?Medication ?Instructions ?Recorded guaifenesin 600 mg tablet, 600 mg PO BID #20 tabs 07/01/23 extended release 12 hr (Mucinex) sucralfate 1 gram tablet 1 g PO QIDACHS #120 tabs 04/04/25 rifaximin 550 mg tablet (Xifaxan) 550 mg PO BID 90 days #180 tabs 05/11/25 Allergies Allergy/AdvReac Type Severity Reaction Status Date / Time acetaminophen (From Tylenol) Allergy Unknown Verified 06/21/25 13:19 Review of Systems Review of Systems: As per HPI Yes all other systems are reviewed and are negative Constitutional: Constitutional: Reports as per HPI PMFSH Past Medical History Medical History (Updated 06/21/25 @ 17:00 by Shefali Cavanaguh NP) Hypercapnia COPD (chronic obstructive pulmonary disease) Hepatitis C test positive Cirrhosis of liver without ascites Serum ammonia increased Cirrhosis FH: cholecystectomy Hepatitis C Splenomegaly Type 2 diabetes mellitus Morbid obesity CHF (congestive heart failure) Surgical History H/O enucleation of right eyeball Hx of appendectomy History of hip replacement Social History Social History Household Members: Unknown / Unable to assess Housing: Assisted Living Facility Do you presently have visiting nurse or other home services: Yes Unable to assess alcohol history related to: Unable to respond Alcohol intake: former Patient Tobacco Use Status: Former Tobacco user Tobacco use type: Cigarette Cigarette Packs Per Day: 1 Cigarettes Per Day: 20.0 Years Smoked: 30 Smoked in Last 30 Days: No Second Hand Smoke Exposure: No Use of substances other than those prescribed or required for medical reasons: No Advance Directives: Yes Advance Directives on File: Yes Advance Directives Date on File: 08/29/23 service: No Physical Exam ED Vital Signs: Vital Signs - 24 hr 06/21/25 13:16 06/21/25 13:27 06/21/25 15:09 Temperature 98.0 F 98.0 F Pulse Rate 72 73 75 Respiratory Rate 18 18 18 Blood Pressure 110/45 L 104/47 L 110/57 L Pulse Oximetry 99 100 100 Oxygen Delivery Method Room Air Nasal Cannula Nasal Cannula Oxygen Flow Rate 2 2 06/21/25 16:08 06/21/25 16:26 06/21/25 16:33 Temperature 98.0 F 98.1 F 98.2 F Pulse Rate 75 70 74 Respiratory Rate 18 16 18 Blood Pressure 110/57 L 108/45 L 97/46 L Pulse Oximetry 99 Oxygen Delivery Method Room Air Oxygen Flow Rate 06/21/25 17:30 06/21/25 18:33 06/21/25 19:28 Temperature 98.8 F 98.3 F Pulse Rate 80 78 75 Respiratory Rate 18 17 15 Blood Pressure 92/46 L 106/43 L 106/38 L Pulse Oximetry 98 99 Oxygen Delivery Method Room Air Nasal Cannula Oxygen Flow Rate 2 06/21/25 20:49 06/21/25 20:52 06/21/25 21:07 Temperature 98.2 F 98.2 F 98.1 F Pulse Rate 71 71 71 Respiratory Rate 16 16 16 Blood Pressure 112/50 L 119/57 L 126/54 L Pulse Oximetry 96 Oxygen Delivery Method Room Air Oxygen Flow Rate 06/21/25 21:07 06/21/25 22:40 06/21/25 23:34 Temperature 98.1 F 98.5 F 98.0 F Pulse Rate 71 77 76 Respiratory Rate 16 20 15 Blood Pressure 126/54 L 117/62 123/63 Pulse Oximetry 99 Oxygen Delivery Method Nasal Cannula Oxygen Flow Rate 2 06/21/25 23:38 Temperature 98 F Pulse Rate 74 Respiratory Rate 16 Blood Pressure 123/63 Pulse Oximetry 99 Oxygen Delivery Method Room Air Oxygen Flow Rate BMI result Body Mass Index 85.1 Vital signs have been reviewed and appear to be correct. Blood pressure slightly low. Heart rate normal. Respiratory rate normal. Temperature normal. Oxygen saturation normal. Const General: cooperative and no acute distress Orientation/consciousness: oriented to person, oriented to place, oriented to time and patient oriented x3 Limitations: physical limitations (non ambulatory at baseline) HENMT Head: Yes normocephalic and Yes atraumatic Ears: external ears normal General nose exam: Normal external nose present Face and sinus: Yes face symmetric Mouth: oropharynx normal and moist mucous membranes Throat: Yes uvula midline Eyes Pupils: Equal, round and reactive pupils present Neck Neck: Yes normal visual inspection and Yes supple Resp Effort & Inspection: normal respiratory effort and able to speak in complete sentences Auscultation: clear to auscultation bilaterally Cardio Rate: regular rate Rhythm: regular rhythm Heart sounds: S1 normal heart sound present and S2 normal heart sound present GI Palpation (GI): Soft to palpation and nontender Auscultation: normoactive bowel sounds General: Yes no CVA tenderness Back/Spine/Pelvis Back: no CVA tenderness Skin General skin exam: elasticity normal and turgor normal Neuro General: oriented to person, oriented to place, oriented to time, patient oriented x3, moves all extremities, no focal motor deficits and CN's II-XI intact bilaterally Cranial nerves: Yes Equal, round and reactive pupils present Cognition (Neuro): normal cognition Extrem General: Yes full ROM, Yes no pedal edema and Yes no calf tenderness Psych Mental Status: mental status grossly normal Affect: normal affect Thought process: Normal thought process present Course Course Course Narrative: 11:11 PM 06/21/2025 (Roslyn GAY): Patient was signed out to this provider at shift change, in summary the patient is a 79-year-old female presenting to the ED from [facility] for low H and H of 6 and 21. The patient is a history of chronic anemia and esophageal varices but denies any active bleeding. The patient was found to have confirmed H and H of 6 and 21, ordered for 2 units packed red blood cells. Patient was signed out to this provider pending completion of PRBCs for repeat CBC and likely discharge back to [facility]. The patient has now completed her 2 units of blood, we will obtain a repeat CBC and if improved discharged to [facility]. 12:17 AM 06/22/2025 (Roslyn GAY): The patient's repeat CBC shows marked improvement following transfusion, patient currently has H&H of 8.2 and 27.1. The patient will be discharged back to [facility] for follow up. Medical Decision Making Medical Decision Making MDM Narrative: Patient is a 79-year-old female with history of cirrhosis of liver, esophageal varices, chronic lung disease, anemia, HF, COPD on O2 @ baseline, CKD, T2DM presenting to the ED via EMS from [facility] for anemia noted on labs drawn this morning with H&H of 6.0/21.1. On exam patient is awake, A+Ox3, VS WNL, afebrile, normal neurological exam without focal deficits, physical exam findings as above. Given reported symptoms and physical exam findings, initial differential includes but is not limited to acute blood loss anemia versus anemia of CKD, electrolyte abnormality. Do not suspect acute bleed from esophageal varices as patient denies N/V or abdominal pain. Labs notable for H&H of 6.3/21.5, thrombocytopenia. She is currently hemodynamically stable and without complaint. Plan to transfuse 2 units, repeat CBC, likely discharge back to facility for repeat CBC in 24 hours. Plan discussed with attending, Dr. Banegas, who is in agreement with this plan. Written consent for transfusion signed by patient and placed in chart. Will transfuse at slow rate as patient at risk for TACO. Patient signed out to DEIDRA Licona pending repeat CBC after transfusions. Differential Diagnosis Differential Diagnoses: The differential diagnosis associated with the presentation includes as per [facility] Admission/Observation Consideration of admission/observation: Escalation of care including admission/observation considered Patient would have been admitted to the hospital had their clinical presentation warranted hospital admission. Lab Data [facility] Lab Attestation statement: I reviewed the patient's lab results. as per [facility] 06/21/25 23:39 06/21/25 13:50 Labs: Lab Results 06/21/25 06/21/25 Range/Units 13:50 23:39 WBC 3.4 L 3.7 L (4.8-10.8) X10*3/uL RBC 2.78 L 3.44 L D (4.20-5.50) X10*6/uL Hgb 6.3 L* 8.2 L D (12.0-16.0) g/dl Hct 21.5 L 27.1 L D (37.0-47.0) % MCV 77.3 L 78.8 L (80.0-98.0) fL MCH 22.7 L 23.8 L (27.0-33.0) pg MCHC 29.3 L 30.3 L (31.0-35.0) g/dl RDW 17.5 H 17.9 H (11.0-16.0) % Plt Count 54 L D 51 L (160-400) X10*3/uL MPV Not Reportable TNP Immature Gran % (Auto) 0.3 0.3 (0.0-0.4) % Neut % (Auto) 71.1 72.8 (45-73) % Lymph % (Auto) 15.8 L 14.1 L (20-40) % Trinity % (Auto) 11.9 H 12.2 H (2-11) % Eos % (Auto) 0.6 0.3 (0-4) % Baso % (Auto) 0.3 0.3 (0-2) % Lymph # (Auto) 0.5 L 0.5 L (1.2-4.9) X10*3/uL Trinity # (Auto) 0.4 0.5 (0.1-1.2) X10*3/uL Eos # (Auto) 0.0 0.0 (0.0-0.4) X10*3/uL Baso # (Auto) 0.0 0.0 (0.0-0.2) X10*3/uL Abs Immat Gran (auto) 0.01 0.01 (0.00-0.03) X10*3/uL Absolute Neuts (auto) 2.4 2.7 (2.0-8.3) x10*3/uL Absolute Nucleated RBC 0.000 0.000 (0.0-0.012) X10*3/uL Nucleated RBC % (auto) 0.0 0.0 (0.0-0.2) /100WBC Smear Tech's Comments VERIFIED Sodium 141 (135-145) mmol/L Potassium 3.8 (3.3-5.1) mmol/L Chloride 100 (96-108) mmol/L Carbon Dioxide 35 H (22-29) mmol/L Anion Gap 10 L (12-20) BUN 27 H (9-16) mg/dL Creatinine 1.38 (0.5-1.4) mg/dL Estim Creat Clear Calc 60.7 Estimated GFR 37 Random Glucose 109 (60-115) mg/dL Calcium 9.0 (8.4-10.2) mg/dL Total Bilirubin 0.8 (0.0-1.0) mg/dL AST 27 (5-31) U/L ALT < 6 (0-31) U/L Alkaline Phosphatase 52 (39-117) U/L Total Protein 5.9 L (6.5-8.0) g/dL Albumin 3.2 L (3.5-5.0) g/dL Blood Type A Positive Antibody Screen NEGATIVE Crossmatch See Detail External Record Review External record reviewed: Inpatient record, Office record and Outpatient record Discharge Plan Discharge Clinical Impression: Anemia Patient Disposition: Home, Self-Care Instructions: Anemia (ED) Additional Instructions: Thank you for choosing [facility]'s Emergency Department for your care today. At this time there is no indication for admission to the hospital or continued ED observation, and it is safe to discharge you home. Your laboratory evaluation today showed that you are suffering from anemia, your transfused with 2 units of packed red blood cells. After completion of the transfusion your blood counts have improved and it is safe to discharge you home. Please stay well hydrated and get plenty of rest. Please follow up with your primary care physician for re-evaluation, additional management of your symptoms, and continued preventative care. If you do not have a primary care physician, please call the [facility] at [phone] to establish a new primary care physician. While waiting to establish your new primary care physician, you can call our [facility] at [phone] for non-emergency needs. Please return to the emergency department if you develop a severe or sudden change in your symptoms, a fever over 100.4 that does not improve with Tylenol or Ibuprofen, recurrent vomiting, or any other new or worsening symptoms or concerns. Prescriptions: No Action multivitamin Tablet 1 tab PO DAILY trazodone 50 mg Tablet 50 mg PO BEDTIME cetirizine 10 mg Tablet 10 mg PO DAILY levetiracetam [Keppra] 500 mg Tablet 500 mg PO BID thiamine HCl (vitamin B1) 100 mg Tablet 100 mg PO DAILY alprazolam [Xanax] 0.25 mg Tablet 0.25 mg PO BID magnesium hydroxide [Milk of Magnesia] 400 mg/5 mL Suspension 30 ml PO DAILY PRN (Reason: Constipation) bisacodyl 10 mg Suppository 10 mg UT DAILY PRN (Reason: Constipation) Rx Instructions: no BM for 8 hours after MOM pantoprazole 40 mg Tablet,Delayed Release (Dr/Ec) 40 mg PO DAILY@0630 Fleet Enema 19-7 gram/118 mL Enema 118 ml UT DAILY PRN (Reason: Constipation) Rx Instructions: no BM for 8 hours after bisacodyl supp gabapentin 300 mg Capsule 300 mg PO TID bisacodyl [Dulcolax (bisacodyl)] 5 mg Tablet,Delayed Release (Dr/Ec) 5 mg PO DAILY fluticasone propionate [Flonase Allergy Relief] 50 mcg/actuation Mylo,Suspension 1 spray INTRANASAL BID Rx Instructions: administer into each nostril metoprolol tartrate 25 mg Tablet 25 mg PO DAILY lactulose 10 gram/15 mL Solution 45 ml PO TID Muscle Rub 15-10 % Cream 1 appl TOPICAL DAILY PRN (Reason: neck pain) Rx Instructions: apply to neck diclofenac sodium 1 % Gel 4 g TOPICAL QID PRN (Reason: Pain) Rx Instructions: apply to hips ipratropium-albuterol 0.5 mg-3 mg(2.5 mg base)/3 mL Solution For Nebulization 3 ml INHALATION Q6H PRN (Reason: Shortness Of Breath Or Wheezing) tizanidine 2 mg Tablet 2 mg PO Q8H PRN (Reason: Muscle Spasm) guaifenesin [Mucinex] 600 mg Tablet Extended Release 12hr 600 mg PO BID Qty: 20 0RF furosemide 40 mg tablet 40 mg PO BID benzonatate 200 mg Capsule 200 mg PO TID albuterol sulfate 90 mcg/actuation Hfa Aerosol Inhaler 1 inh INHALATION BID oxycodone 5 mg tablet 5 mg PO Q8H PRN (Reason: Pain) nystatin 100,000 unit/gram Powder 1 appl TOPICAL BID PRN (Reason: Skin Irritation) Rx Instructions: APPLY TO UNDER BREST REDNESS Xifaxan 550 mg Tablet 550 mg PO BID 90 Days Qty: 180 0RF white petrolatum-mineral oil Ointment 1 appl ophthalmic-Left BEDTIME guaifenesin [Camryn-Tussin] 100 mg/5 mL Liquid 200 mg PO Q6H PRN (Reason: Cough) spironolactone 25 mg Tablet 12.5 mg PO DAILY hydroxyzine HCl 25 mg Tablet 25 mg PO Q8H PRN (Reason: rash/itching) escitalopram oxalate 10 mg Tablet 15 mg PO DAILY cyclosporine [Restasis] 0.05 % Dropperette 1 drp ophthalmic-Left BID Trelegy Ellipta 200-62.5-25 mcg blister with device 1 ea inhalation DAILY sucralfate 1 gram Tablet 1 g PO QIDACHS Qty: 120 0RF Referrals: Physician,Unknown J [Primary Care Provider, Medical] Clinical Impression: Anemia Print Language: Portuguese
[2025-06-21 14:00] LABS: MANUAL DIFF FLAG NO
[2025-06-21 14:04] LABS: Hematocrit 21.5 % (37.0-47.0); Imm Gran Abs Auto 0.01 X10*3/uL (0.00-0.03); Imm Gran Pct Auto 0.3 % (0.0-0.4); Lymphocytes Absolute Auto 0.5 X10*3/uL (1.2-4.9); Mean Corpuscular HGB Conc 29.3 g/dl (31.0-35.0); Mean Corpuscular Hemoglobin 22.7 pg (27.0-33.0); Mean Corpuscular Volume 77.3 fL (80.0-98.0); NRBC Abs Auto 0.000 X10*3/uL (0.0-0.012); NRBC Pct Auto 0.0 /100WBC (0.0-0.2); Platelet Count 54 X10*3/uL (160-400); Red Blood Count 2.78 X10*6/uL (4.20-5.50); White Blood Count 3.4 X10*3/uL (4.8-10.8)
[2025-06-21 14:06] LABS: Hemoglobin 6.3 g/dl (12.0-16.0)
[2025-06-21 14:22] LABS: Alanine Aminotransferase < 6 U/L (0-31); Albumin Level 3.2 g/dL (3.5-5.0); Alkaline Phosphatase 52 U/L (39-117); Anion Gap 10 (12-20); Aspartate Amino Transferase 27 U/L (5-31); Blood Urea Nitrogen 27 mg/dL (9-16); Calcium 9.0 mg/dL (8.4-10.2); Carbon Dioxide 35 mmol/L (22-29); Chloride 100 mmol/L (96-108); Creatinine Clr Calc Pharmacy 60.7; Estimated Glomerular Filt Rate 37; Potassium 3.8 mmol/L (3.3-5.1); Sodium 141 mmol/L (135-145); Total Protein 5.9 g/dL (6.5-8.0)
--- NOTE | 2025-06-21 21:07 | PC.NURSE ---
Patient alert and oriented x4, able to make her needs known, VSS. Patient reports chronic pain in b/l shoulders, 6/ at present, pain is at tolerable level per patient. First unit of PRBCs transfused without issues. Second unit of PRBCs started, patient tolerating transfusion well, no adverse reactions noted. Patient requested snack, provided with turkey sandwich and laith alex. Patient currently resting in stretcher bed, watching TV, call laureano in patient's reach.
[2025-06-21 23:47] LABS: Imm Gran Abs Auto 0.01 X10*3/uL (0.00-0.03); Imm Gran Pct Auto 0.3 % (0.0-0.4); MANUAL DIFF FLAG SCAN; NRBC Abs Auto 0.000 X10*3/uL (0.0-0.012); NRBC Pct Auto 0.0 /100WBC (0.0-0.2); SCAN SMEAR FLAG 1
[2025-06-21 23:49] LABS: Hematocrit 27.1 % (37.0-47.0); Hemoglobin 8.2 g/dl (12.0-16.0); Lymphocytes Absolute Auto 0.5 X10*3/uL (1.2-4.9); Mean Corpuscular HGB Conc 30.3 g/dl (31.0-35.0); Mean Corpuscular Hemoglobin 23.8 pg (27.0-33.0); Mean Corpuscular Volume 78.8 fL (80.0-98.0); Red Blood Count 3.44 X10*6/uL (4.20-5.50); White Blood Count 3.7 X10*3/uL (4.8-10.8)
[2025-06-21 23:54] LABS: Platelet Count 51 X10*3/uL (160-400)
[2025-06-21 23:55] LABS: PLT ABN DIST 1
[2025-06-22 03:23] VITALS: BP 99/46; PULSE 79; RESP 20; TEMP 36.9; O2SAT 95
[2025-06-22 04:05] VITALS: BP 117/63; PULSE 82; RESP 20; TEMP 36.9; O2SAT 97
== END 2025-06-22 04:06 | disposition skilled nursing facility (03) ==
PROVIDERS: Physician Assistant; Emergency Provider Emergency Medicine
DX: D64.9 Anemia, unspecified (principal); R79.89 Other specified abnormal findings of blood chemistry; J44.9 Chronic obstructive pulmonary disease, unspecified; E11.9 Type 2 diabetes mellitus without complications; Z99.81 Dependence on supplemental oxygen; Z79.899 Other long term (current) drug therapy; Z87.891 Personal history of nicotine dependence
CPT/HCPCS: 36415; 36430; 80053; 85025; 86850; 86900; 86901; 86923; 99284; 99285; P9016

== ENCOUNTER 2025-07-18 11:08 | Inpatient (IN) | payer MEDICARE, MEDICAID, SELFPAY ==
[2025-07-18] VITALS (14 sets, daily range): BP systolic 95–146; BP diastolic 33–68; PULSE 55–76; RESP 12–18; TEMP 35.5–36.4; O2SAT 97–100; BMI 37.5; BMI 37.4
--- NOTE | ~2025-07-18 | CT_ITS ---
CLINICAL HISTORY: left facial pain CT maxillofacial without contrast Comparison: None provided Findings: No acute fractures. No dislocations. Temporomandibular joints are intact. Paranasal sinuses and mastoid air cells clear. Orbits normal. Visualized intracranial contents are within normal limits. No foreign bodies. IMPRESSION: Unremarkable maxillofacial CT. This document has been electronically signed by: Jose Guadalupe Cruz MD on 07/21/2025 12:54:16
--- NOTE | 2025-07-18 11:24 | ED.GENADULT ---
HPI - General Adult General Chief complaint: Recheck/Abnormal Lab/Rx Stated complaint: abnormal labs Time Seen by Provider: 07/18/25 11:18 Source: EMS Mode of arrival: EMS History of Present Illness HPI narrative: This is a 79 years old the patient half-way resident that was sent here by the nursing facility because hemoglobin at 6.3 with a crit of 22. Onset (ago): day(s) (1) Severity: mild Relieving factors: none Exacerbating factors: none Associated symptoms: denies other symptoms Related Data Home Medications ?Medication ?Instructions ?Recorded ?Confirmed alprazolam 0.25 mg tablet (Xanax) 0.25 mg PO BID Anxiety 06/28/23 05/08/25 bisacodyl 10 mg rectal suppository 10 mg SD DAILY PRN Constipation 06/28/23 05/08/25 bisacodyl 5 mg tablet,delayed 5 mg PO DAILY 06/28/23 05/08/25 release (Dulcolax (bisacodyl)) cetirizine 10 mg tablet 10 mg PO DAILY 06/28/23 05/08/25 diclofenac sodium 1 % topical gel 4 g topical QID PRN Pain 06/28/23 05/08/25 fluticasone propionate 50 1 spray intranasal BID 06/28/23 05/08/25 mcg/actuation nasal spray,suspension (Flonase Allergy Relief) gabapentin 300 mg capsule 300 mg PO TID 06/28/23 05/08/25 ipratropium 0.5 mg-albuterol 3 mg 3 ml inhalation Q6H PRN Shortness 06/28/23 05/08/25 (2.5 mg base)/3 mL nebulization Of Breath Or Wheezing soln lactulose 10 gram/15 mL oral 45 ml PO TID 06/28/23 05/08/25 solution levetiracetam 500 mg tablet 500 mg PO BID 06/28/23 05/08/25 (Keppra) magnesium hydroxide 400 mg/5 mL 30 ml PO DAILY PRN Constipation 06/28/23 05/08/25 oral suspension (Milk of Magnesia) methyl salicylate 15 %-menthol 10 1 appl topical DAILY PRN neck pain 06/28/23 05/08/25 % topical cream (Muscle Rub) metoprolol tartrate 25 mg tablet 25 mg PO DAILY 06/28/23 05/08/25 multivitamin 1 tab PO DAILY 06/28/23 05/08/25 pantoprazole 40 mg tablet,delayed 40 mg PO DAILY@0630 06/28/23 05/08/25 release sodium phosphates 19 gram-7 118 ml SD DAILY PRN Constipation 06/28/23 05/08/25 gram/118 mL enema (Fleet Enema) thiamine HCl (vitamin B1) 100 mg 100 mg PO DAILY 06/28/23 05/08/25 tablet tizanidine 2 mg tablet 2 mg PO Q8H PRN Muscle Spasm 06/28/23 05/08/25 trazodone 50 mg tablet 50 mg PO BEDTIME 06/28/23 05/08/25 cyclosporine 0.05 % eye drops in a 1 drp ophthalmic-Left BID 04/01/25 05/08/25 dropperette (Restasis) escitalopram oxalate 10 mg tablet 15 mg PO DAILY 04/01/25 05/08/25 fluticasone fur. 200 mcg-umeclid 1 ea inhalation DAILY 04/01/25 05/08/25 62.5 mcg-vilant 25 mcg inhalat.powder (Trelegy Ellipta) guaifenesin 100 mg/5 mL oral 200 mg PO Q6H PRN Cough 04/01/25 05/08/25 liquid (Camryn-Tussin) hydroxyzine HCl 25 mg tablet 25 mg PO Q8H PRN rash/itching 04/01/25 05/08/25 spironolactone 25 mg tablet 12.5 mg PO DAILY 04/01/25 05/08/25 white petrolatum-mineral oil eye 1 appl ophthalmic-Left BEDTIME 04/01/25 05/08/25 ointment albuterol sulfate 90 mcg/actuation 1 inh inhalation BID 05/08/25 05/08/25 aerosol inhaler benzonatate 200 mg capsule 200 mg PO TID 05/08/25 05/08/25 furosemide 40 mg tablet 40 mg PO BID 05/08/25 05/08/25 nystatin 100,000 unit/gram topical 1 appl topical BID PRN Skin 05/08/25 05/08/25 powder Irritation oxycodone 5 mg tablet 5 mg PO Q8H PRN Pain 05/08/25 05/08/25 Previous Rx's ?Medication ?Instructions ?Recorded guaifenesin 600 mg tablet, 600 mg PO BID #20 tabs 07/01/23 extended release 12 hr (Mucinex) sucralfate 1 gram tablet 1 g PO QIDACHS #120 tabs 04/04/25 rifaximin 550 mg tablet (Xifaxan) 550 mg PO BID 90 days #180 tabs 05/11/25 Allergies Allergy/AdvReac Type Severity Reaction Status Date / Time acetaminophen (From Tylenol) Allergy Unknown Verified 07/18/25 11:24 Review of Systems Constitutional: Constitutional: Reports no additional constitutional complaints Cardiovascular: Cardiovascular: Reports no additional cardiovascular complaints Musculoskeletal: Musculoskeletal: Reports no additional musculoskeletal complaints [facility] Past Medical History Attestation statement: The following information was validated with the patient. Medical History Hypercapnia COPD (chronic obstructive pulmonary disease) Hepatitis C test positive Cirrhosis of liver without ascites Serum ammonia increased Cirrhosis FH: cholecystectomy Hepatitis C Splenomegaly Type 2 diabetes mellitus Morbid obesity CHF (congestive heart failure) Surgical History H/O enucleation of right eyeball Hx of appendectomy History of hip replacement Social History Social History Household Members: Unknown / Unable to assess Housing: Assisted Living Facility Do you presently have visiting nurse or other home services: Yes Unable to assess alcohol history related to: Unable to respond Alcohol intake: former Patient Tobacco Use Status: Former Tobacco user Tobacco use type: Cigarette Cigarette Packs Per Day: 1 Cigarettes Per Day: 20.0 Years Smoked: 30 Second Hand Smoke Exposure: No Advance Directives: Yes Advance Directives on File: Yes Advance Directives Date on File: 08/29/23 service: No Physical Exam ED Exam Exam: Not acute distress comfortable in the stretcher Vital Signs: Vital Signs - 24 hr 07/18/25 11:16 07/18/25 11:41 Temperature 96 F L Pulse Rate 60 57 Respiratory Rate 14 16 Blood Pressure 103/66 106/41 L Pulse Oximetry 98 100 Oxygen Delivery Method Nasal Cannula Nasal Cannula Oxygen Flow Rate 2 BMI result Body Mass Index 37.5 Const General: cooperative and comfortable Orientation/consciousness: patient oriented x3 HENMT Head: Yes normal to inspection Eyes Other: Right eye blind Chest Chest palpation & inspection: normal inspection of the chest Resp Effort & Inspection: normal respiratory effort Cardio Jugular venous distension: no JVD Rate: regular rate Rhythm: regular rhythm GI Inspection: Yes normal to inspection Palpation (GI): Soft to palpation Rectal Exam - Female: other ( rectal exam stool brown) Skin General skin exam: no rashes or lesions noted Neuro General: patient oriented x3 Course Reevaluation(s) Reevaluation #1: Hemoglobin noted we will go ahead and transfuse the patient Time: 14:35 Medications Administered Generic Name Dose Route Start Last Admin Trade Name Freq PRN Reason Stop Dose Admin Pantoprazole Sodium 40 mg 07/18/25 14:00 07/18/25 14:16 Pantoprazole Sodium 40 Mg/10 Ml Vial IVPUSH 40 mg DAILY@0630 [facility] Administration Medical Decision Making Medical Decision Making [facility] Narrative: Patient was sent here by the half-way because of anemia we will double check Differential Diagnosis Differential Diagnoses: The differential diagnosis associated with the presentation includes Anemia/GI bleeding Admission/Observation Consideration of admission/observation: Escalation of care including admission/observation considered Consult Healthcare Provider Management of the patient was discussed with: Hospitalist Lab Data [facility] Lab Attestation statement: I reviewed the patient's lab results. 07/18/25 11:38 07/18/25 11:38 Labs: Lab Results 07/18/25 07/18/25 07/18/25 Range/Units 11:38 11:40 11:43 WBC 2.5 L (4.8-10.8) X10*3/uL RBC 2.94 L (4.20-5.50) X10*6/uL Hgb 6.9 L* (12.0-16.0) g/dl Hct 23.6 L (37.0-47.0) % MCV 80.3 (80.0-98.0) fL MCH 23.5 L (27.0-33.0) pg MCHC 29.2 L (31.0-35.0) g/dl RDW 17.7 H (11.0-16.0) % Plt Count 54 L (160-400) X10*3/uL MPV 11.7 (9.4-12.3) fL Immature Gran % (Auto) 0.4 (0.0-0.4) % Neut % (Auto) 69.9 (45-73) % Lymph % (Auto) 16.7 L (20-40) % [place] % (Auto) 11.4 H (2-11) % Eos % (Auto) 1.2 (0-4) % Baso % (Auto) 0.4 (0-2) % Lymph # (Auto) 0.4 L (1.2-4.9) X10*3/uL [place] # (Auto) 0.3 (0.1-1.2) X10*3/uL Eos # (Auto) 0.0 (0.0-0.4) X10*3/uL Baso # (Auto) 0.0 (0.0-0.2) X10*3/uL Abs Immat Gran (auto) 0.01 (0.00-0.03) X10*3/uL Absolute Neuts (auto) 1.7 L (2.0-8.3) x10*3/uL Absolute Nucleated RBC 0.000 (0.0-0.012) X10*3/uL Nucleated RBC % (auto) 0.0 (0.0-0.2) /100WBC Smear Tech's Comments VERIFIED VBG pH (7.32-7.43) VBG pCO2 mmHg VBG pO2 mmHg VBG HCO3 (22-26) mmol/L VBG O2 Saturation VBG Base Excess mmol/L Sodium 142 (135-145) mmol/L Potassium 3.6 (3.3-5.1) mmol/L Chloride 104 (96-108) mmol/L Carbon Dioxide 33 H (22-29) mmol/L Anion Gap 9 L (12-20) BUN 29 H (9-16) mg/dL Creatinine 1.30 (0.5-1.4) mg/dL Estim Creat Clear Calc 40.8 Estimated GFR 40 Random Glucose 147 H (60-115) mg/dL Calcium 8.6 (8.4-10.2) mg/dL Total Bilirubin 0.7 (0.0-1.0) mg/dL AST 26 (5-31) U/L ALT < 6 (0-31) U/L Alkaline Phosphatase 55 (39-117) U/L Ammonia 46 (13-55) umol/L Total Protein 5.8 L (6.5-8.0) g/dL Albumin 3.0 L (3.5-5.0) g/dL Stool Occult Blood POSITIVE (NEGATIVE) Blood Type A Positive Antibody Screen NEGATIVE Crossmatch See Detail 07/18/25 Range/Units 11:45 WBC (4.8-10.8) X10*3/uL RBC (4.20-5.50) X10*6/uL Hgb (12.0-16.0) g/dl Hct (37.0-47.0) % MCV (80.0-98.0) fL MCH (27.0-33.0) pg MCHC (31.0-35.0) g/dl RDW (11.0-16.0) % Plt Count (160-400) X10*3/uL MPV (9.4-12.3) fL Immature Gran % (Auto) (0.0-0.4) % Neut % (Auto) (45-73) % Lymph % (Auto) (20-40) % [place] % (Auto) (2-11) % Eos % (Auto) (0-4) % Baso % (Auto) (0-2) % Lymph # (Auto) (1.2-4.9) X10*3/uL [place] # (Auto) (0.1-1.2) X10*3/uL Eos # (Auto) (0.0-0.4) X10*3/uL Baso # (Auto) (0.0-0.2) X10*3/uL Abs Immat Gran (auto) (0.00-0.03) X10*3/uL Absolute Neuts (auto) (2.0-8.3) x10*3/uL Absolute Nucleated RBC (0.0-0.012) X10*3/uL Nucleated RBC % (auto) (0.0-0.2) /100WBC Smear Tech's Comments VBG pH 7.39 (7.32-7.43) VBG pCO2 60 mmHg VBG pO2 61 mmHg VBG HCO3 37 H (22-26) mmol/L VBG O2 Saturation TNP VBG Base Excess 11.3 mmol/L Sodium (135-145) mmol/L Potassium (3.3-5.1) mmol/L Chloride (96-108) mmol/L Carbon Dioxide (22-29) mmol/L Anion Gap (12-20) BUN (9-16) mg/dL Creatinine (0.5-1.4) mg/dL Estim Creat Clear Calc Estimated GFR Random Glucose (60-115) mg/dL Calcium (8.4-10.2) mg/dL Total Bilirubin (0.0-1.0) mg/dL AST (5-31) U/L ALT (0-31) U/L Alkaline Phosphatase (39-117) U/L Ammonia (13-55) umol/L Total Protein (6.5-8.0) g/dL Albumin (3.5-5.0) g/dL Stool Occult Blood (NEGATIVE) Blood Type Antibody Screen Crossmatch Independent Historian Clinical information obtained from an independent historian. History obtained from or confirmed by: EMS and Other ([facility] record) Chronic Conditions Patient?s care impacted by: Other (copd 02 dep) Critical Care Time Critical Care Time Critical Care Time: Yes Total Critical Care Time: 60 Attestation: blood transfusion for anemia Discharge Plan Discharge Clinical Impression: Anemia Qualifiers: Anemia type: unspecified type Qualified Code(s): D64.9 - Anemia, unspecified Patient Disposition: Admitted As Inpatient
[2025-07-18 11:53] LABS: Venous Blood Gas Refer to POC result
[2025-07-18 11:53] LABS: OBS Int Ctl Valid YES; OBS1 POSITIVE (NEGATIVE)
[2025-07-18 11:53] LABS: VBG HCO3 37 mmol/L (22-26)
[2025-07-18 11:56] LABS: Ammonia 46 umol/L (13-55)
[2025-07-18 12:08] LABS: Alanine Aminotransferase < 6 U/L (0-31); Albumin Level 3.0 g/dL (3.5-5.0); Alkaline Phosphatase 55 U/L (39-117); Anion Gap 9 (12-20); Aspartate Amino Transferase 26 U/L (5-31); Blood Urea Nitrogen 29 mg/dL (9-16); Calcium 8.6 mg/dL (8.4-10.2); Carbon Dioxide 33 mmol/L (22-29); Chloride 104 mmol/L (96-108); Creatinine Clr Calc Pharmacy 40.8; Estimated Glomerular Filt Rate 40; Potassium 3.6 mmol/L (3.3-5.1); Sodium 142 mmol/L (135-145); Total Protein 5.8 g/dL (6.5-8.0)
[2025-07-18 13:05] LABS: Hematocrit 23.6 % (37.0-47.0); Imm Gran Abs Auto 0.01 X10*3/uL (0.00-0.03); Imm Gran Pct Auto 0.4 % (0.0-0.4); Lymphocytes Absolute Auto 0.4 X10*3/uL (1.2-4.9); MANUAL DIFF FLAG SCAN; Mean Corpuscular HGB Conc 29.2 g/dl (31.0-35.0); Mean Corpuscular Hemoglobin 23.5 pg (27.0-33.0); Mean Corpuscular Volume 80.3 fL (80.0-98.0); NRBC Abs Auto 0.000 X10*3/uL (0.0-0.012); NRBC Pct Auto 0.0 /100WBC (0.0-0.2); Platelet Count 54 X10*3/uL (160-400); Red Blood Count 2.94 X10*6/uL (4.20-5.50); SCAN SMEAR FLAG 1; White Blood Count 2.5 X10*3/uL (4.8-10.8)
[2025-07-18 13:07] LABS: Hemoglobin 6.9 g/dl (12.0-16.0)
--- NOTE | 2025-07-18 13:58 | PM.IMHP ---
History of Present Illness Date of Service: 07/18/25 Attending physician on admission: [facility] Chief Complaint: abnormal labs This is a 79 year old female with a history of depression/anxiety, hepatitis-C and patient completed treatment, cirrhosis, GERD, COPD secondary to history of tobacco use, and mobility dependent on wheelchair, history of alcohol dependence, seizure disorder on Keppra, enucleated right eye who was sent in from long term due to abnormal labs. Patient was noted to have anemia, in the ED H/H was 6.9/23.6. She was stool occult positive. She denies any abdominal pain. She denies any dizziness, shortness of breath or chest pain. She denies any blood in her stool, she denies vomiting blood. She says sometimes her stool is dark but nothing has changed recently. 1 unit of blood was ordered in the emergency department in the decision was made to admit her for further management. Review of Systems Review of Systems: Yes all other systems are reviewed and are negative Constitutional: Constitutional: Denies chills and Denies fever(s) Cardiovascular: Cardiovascular: Denies chest pain, Denies palpitations and Denies dyspnea Respiratory: Respiratory: Denies cough and Denies dyspnea Gastrointestinal: Gastrointestinal: Denies abdominal pain, Denies diarrhea, Denies nausea and Denies vomiting Endocrine: Endocrine: Denies palpitations [facility] Medical History Hypercapnia COPD (chronic obstructive pulmonary disease) Hepatitis C test positive Cirrhosis of liver without ascites Serum ammonia increased Cirrhosis FH: cholecystectomy Hepatitis C Splenomegaly Type 2 diabetes mellitus Morbid obesity CHF (congestive heart failure) Surgical History H/O enucleation of right eyeball Hx of appendectomy History of hip replacement Social History Household Members: None Housing: [facility] Do you presently have visiting nurse or other home services: Yes Unable to assess alcohol history related to: Unable to respond Alcohol intake: former Patient Tobacco Use Status: Former Tobacco user Tobacco use type: Cigarette Cigarette Packs Per Day: 1 Cigarettes Per Day: 20.0 Years Smoked: 30 Second Hand Smoke Exposure: No Have you been hit, kicked, punched, or otherwise hurt by someone within the past year? If so, by whom?: No Do you feel safe in your current relationship?: No Current Relationship Is there a partner from a previous relationship who is making you feel unsafe now?: No Are you made to feel afraid or neglected: No Advance Directives: Yes Advance Directives on File: Yes Advance Directives Date on File: 08/29/23 Do you have a plan to hurt others: No Plan Recently lost weight without trying: No Eating poorly because of decreased appetite: No Nutrition Risks: No Nutritional Risk Patient : No service: No Meds Allergies Allergy/AdvReac Type Severity Reaction Status Date / Time acetaminophen (From Tylenol) Allergy Unknown Verified 07/18/25 11:24 Active Medications: Current Medications Calcium Carbonate (Calcium Carbonate 750 Mg Tab.Chew) 750 mg PO Q4H PRN PRN Reason: Heartburn Magnesium Hydroxide (Milk Of Magnesia 30 Ml Oral.Susp) 30 ml PO DAILY PRN PRN Reason: Constipation Melatonin (Melatonin 3 Mg Tablet) 6 mg PO BEDTIME PRN PRN Reason: Insomnia Sodium Chloride (0.9 % Sodium Chloride Flush 3 Ml Syringe) 3 ml IVFLUSH [facility] Medications ?Medication ?Instructions ?Recorded ?Confirmed ?Last Taken ?Type alprazolam 0.25 mg tablet (Xanax) 0.25 mg PO BID Anxiety 06/28/23 07/18/25 Unknown History bisacodyl 10 mg rectal suppository 10 mg [place] DAILY PRN Constipation 06/28/23 07/18/25 Unknown History cetirizine 10 mg tablet 10 mg PO DAILY 06/28/23 07/18/25 Unknown History fluticasone propionate 50 1 spray intranasal BID 06/28/23 07/18/25 Unknown History mcg/actuation nasal spray,suspension (Flonase Allergy Relief) gabapentin 300 mg capsule 300 mg PO TID 06/28/23 07/18/25 Unknown History lactulose 10 gram/15 mL oral 45 ml PO TID 06/28/23 07/18/25 06/26/23 History solution levetiracetam 500 mg tablet 500 mg PO BID 06/28/23 07/18/25 Unknown History (Keppra) magnesium hydroxide 400 mg/5 mL 30 ml PO DAILY PRN Constipation 06/28/23 07/18/25 Unknown History oral suspension (Milk of Magnesia) metoprolol tartrate 25 mg tablet 25 mg PO DAILY 06/28/23 07/18/25 Unknown History multivitamin 1 tab PO DAILY 06/28/23 07/18/25 Unknown History pantoprazole 40 mg tablet,delayed 40 mg PO DAILY@0630 06/28/23 07/18/25 Unknown History release sodium phosphates 19 gram-7 118 ml [place] DAILY PRN Constipation 06/28/23 07/18/25 Unknown History gram/118 mL enema (Fleet Enema) thiamine HCl (vitamin B1) 100 mg 100 mg PO DAILY 06/28/23 07/18/25 Unknown History tablet tizanidine 2 mg tablet 2 mg PO Q8H PRN Muscle Spasm 06/28/23 07/18/25 Unknown History cyclosporine 0.05 % eye drops in a 1 drp ophthalmic-Left BID 04/01/25 07/18/25 Unknown History dropperette (Restasis) escitalopram oxalate 10 mg tablet 10 mg PO DAILY 04/01/25 07/18/25 Unknown History fluticasone fur. 200 mcg-umeclid 1 ea inhalation DAILY 04/01/25 07/18/25 Unknown History 62.5 mcg-vilant 25 mcg inhalat.powder (Trelegy Ellipta) guaifenesin 100 mg/5 mL oral 200 mg PO Q6H PRN Cough 04/01/25 07/18/25 Unknown History liquid (Camryn-Tussin) spironolactone 25 mg tablet 12.5 mg PO DAILY 04/01/25 07/18/25 Unknown History albuterol sulfate 90 mcg/actuation 1 inh inhalation BID 05/08/25 07/18/25 Unknown History aerosol inhaler benzonatate 200 mg capsule 200 mg PO TID 05/08/25 07/18/25 Unknown History furosemide 40 mg tablet 40 mg PO BID 05/08/25 07/18/25 Unknown History oxycodone 5 mg tablet 5 mg PO Q8H PRN Pain 05/08/25 07/18/25 Unknown History Physical Exam Vital Signs and Narrative: Vital Signs: Last Vital Signs Temp 96 F L 07/18/25 11:16 Pulse 57 07/18/25 11:41 Resp 16 07/18/25 11:41 BP 106/41 L 07/18/25 11:41 Pulse Ox 100 07/18/25 11:41 O2 Del Method Nasal Cannula 07/18/25 11:41 O2 Flow Rate 2 07/18/25 11:41 Oxygen Flow Rate 2 07/18/25 11:16 BMI result Body Mass Index 37.5 Const: General: cooperative, comfortable, no acute distress, alert and awake Nutritional Appearance: obese Orientation/consciousness: patient oriented x3 Resp: Effort & Inspection: normal respiratory effort, able to speak in complete sentences, no respiratory distress and no use of accessory muscles Cardio: Rate: regular rate GI: Inspection: No distended Palpation (GI): Soft to palpation and nontender Neuro: General: patient oriented x3, moves all extremities and CN's II-XI intact bilaterally Extrem: Other: 1+ edema LLE, trace edema RLE Results Labs 07/19/25 06:32 07/18/25 11:38 Labs: Laboratory Results - last 24 hr 07/18/25 07/18/25 07/18/25 11:38 11:40 11:43 MCV 80.3 MCH 23.5 L MCHC 29.2 L RDW 17.7 H Plt Count 54 L MPV 11.7 Immature Gran % (Auto) 0.4 Neut % (Auto) 69.9 Lymph % (Auto) 16.7 L [place] % (Auto) 11.4 H Eos % (Auto) 1.2 Baso % (Auto) 0.4 Lymph # (Auto) 0.4 L [place] # (Auto) 0.3 Eos # (Auto) 0.0 Baso # (Auto) 0.0 Abs Immat Gran (auto) 0.01 Absolute Neuts (auto) 1.7 L Absolute Nucleated RBC 0.000 Nucleated RBC % (auto) 0.0 Smear Tech's Comments VERIFIED VBG pH VBG pCO2 VBG pO2 VBG HCO3 VBG O2 Saturation VBG Base Excess Anion Gap 9 L Estim Creat Clear Calc 40.8 Estimated GFR 40 Random Glucose 147 H Calcium 8.6 Total Bilirubin 0.7 AST 26 ALT < 6 Alkaline Phosphatase 55 Ammonia 46 Total Protein 5.8 L Albumin 3.0 L Stool Occult Blood POSITIVE Blood Type A Positive Antibody Screen NEGATIVE Crossmatch See Detail 07/18/25 11:45 MCV MCH MCHC RDW Plt Count MPV Immature Gran % (Auto) Neut % (Auto) Lymph % (Auto) [place] % (Auto) Eos % (Auto) Baso % (Auto) Lymph # (Auto) [place] # (Auto) Eos # (Auto) Baso # (Auto) Abs Immat Gran (auto) Absolute Neuts (auto) Absolute Nucleated RBC Nucleated RBC % (auto) Smear Tech's Comments VBG pH 7.39 VBG pCO2 60 VBG pO2 61 VBG HCO3 37 H VBG O2 Saturation TNP VBG Base Excess 11.3 Anion Gap Estim Creat Clear Calc Estimated GFR Random Glucose Calcium Total Bilirubin AST ALT Alkaline Phosphatase Ammonia Total Protein Albumin Stool Occult Blood Blood Type Antibody Screen Crossmatch Assessment and Plan (1) Anemia: Qualifiers: Anemia type: unspecified type Qualified Code(s): D64.9 - Anemia, unspecified Status: Acute Plan This is a 79-year-old female resident of [facility] for the last 2 years with past medical history depression/anxiety, hepatitis-C, cirrhosis, GERD, COPD secondary to history of tobacco use, chronic low back pain, bilateral hip replacements, and mobility dependent on wheelchair, history of alcohol dependence, seizure disorder on Keppra, enucleated right eye who was sent in for anemia acute on chronic anemia possibly due to 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/history of alcohol dependence and hepatitis-C awake, alert and oriented no encephalopathy chronic thrombocytopenia as above for acute anemia hold lasix, spironolactone for now given soft bp continue lactulose, xifaxan h/o seizure disorder continue keppra HTN continue mtroprolol if bp remains stable hold lasix bp soft, follow closely COPD continue baseline inhalers chronic pain continue baseline oxycodone Mood continue baseline meds morbid obesity BMI 37.5 weight loss encouraged DVT prophylaxis-mechanical devices, chemoprophylaxis contraindicated due to anemia Code status-patient requests to be DNR/DNI (MOLST in system indicates the same) Patient will likely require 2 midnight stay in the hospital for management of acute on chronic anemia requiring possible repeat endoscopy Quality Stroke Does the patient have a stroke diagnosis?: No VTE Prior VTE?: No VTE Risk Level:: Medical - moderate - high VTE Device Contraindication: N/A - Device Ordered VTE Drug Contraindication: Treatment Not Indicated
--- NOTE | 2025-07-18 15:09 | PC.NURSE ---
PRBC started as ordered. Sinus helena on tele. Pt tolerating well at this time
--- NOTE | 2025-07-18 15:21 | PHA.MEDREC ---
Addendum entered by Luis Castillo PharmD 07/18/25 15:49: reviewed Original Note: Pharmacy Consult ? Medication Reconciliation Pharmacy has completed the medication reconciliation. Utilized med list from [facility].
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
[2025-07-18] MEDS: 0.9 % Sodium Chloride Flush 3 ML SYRINGE IVFLUSH (17:09)
[2025-07-18] MEDS: Octreotide Acetate 100 MCG/ML AMPUL 50 MCG IVPUSH (17:21)
--- NOTE | 2025-07-18 20:46 | MHC.EDTECH ---
Patient was incontinent of urine, this optometric technologist provided kelly care and put a diaper on per her request from her own belongings.
[2025-07-19] VITALS (9 sets, daily range): BP systolic 82–130; BP diastolic 39–60; PULSE 59–69; RESP 12–18; TEMP 36.2–36.8; O2SAT 95–99
[2025-07-19 06:44] LABS: Hematocrit 25.2 % (37.0-47.0); Hemoglobin 7.5 g/dl (12.0-16.0); Mean Corpuscular HGB Conc 29.8 g/dl (31.0-35.0); Mean Corpuscular Hemoglobin 24.2 pg (27.0-33.0); Mean Corpuscular Volume 81.3 fL (80.0-98.0); NRBC Abs Auto 0.000 X10*3/uL (0.0-0.012); NRBC Pct Auto 0.0 /100WBC (0.0-0.2); Red Blood Count 3.10 X10*6/uL (4.20-5.50); White Blood Count 3.1 X10*3/uL (4.8-10.8)
[2025-07-19 06:48] LABS: Platelet Count 56 X10*3/uL (160-400)
[2025-07-19 09:39] LABS: Glucose, Whole Blood 121 mg/dL (60-115)
--- NOTE | 2025-07-19 11:50 | P.PNIM_ITS ---
Subjective Subjective Date of Service: 07/19/25 Physical Exam 2 Vital Signs: Vital Signs: Last Vital Signs Temp 98.2 F 07/19/25 11:09 Pulse 67 07/19/25 11:09 Resp 16 07/19/25 11:09 BP 130/59 L 07/19/25 11:09 Pulse Ox 99 07/19/25 11:09 O2 Del Method Nasal Cannula 07/19/25 11:09 O2 Flow Rate 3 07/19/25 11:09 Oxygen Flow Rate 2 07/18/25 11:16 BMI result Body Mass Index 37.4 Objective Data Active Medications Albuterol Sulfate (Albuterol Sulfate 90 Mcg 8 Gm Inhaler) 1 puff INHALE BID [facility] Last Admin: 07/18/25 19:56 Dose: Not Given Documented By: SHANE Non-Admin Reason: Med Not Available Alprazolam (Alprazolam 0.25 Mg Tablet) 0.25 mg PO BID [facility] Last Admin: 07/19/25 10:54 Dose: Not Given Documented By: REBECCA Non-Admin Reason: per md hold Benzonatate (Benzonatate 100 Mg Capsule) 200 mg PO TID [facility] Last Admin: 07/19/25 11:29 Dose: Not Given Documented By: REBECCA Non-Admin Reason: NPO Calcium Carbonate (Calcium Carbonate 750 Mg Tab.Chew) 750 mg PO Q4H PRN PRN Reason: Heartburn Ceftriaxone Sodium (Ceftriaxone Sodium 1 Gm Vial) 1 gm IVPUSH Q24H [facility] Last Admin: 07/18/25 17:21 Dose: 1 gm Documented By: KELLY Escitalopram Oxalate (Escitalopram Oxalate 10 Mg Tablet) 10 mg PO DAILY [facility] Last Admin: 07/19/25 11:31 Dose: 10 mg Documented By: REBECCA Fluticasone Propionate (Fluticasone Propionate Nasal 16 Gm [place]) 1 spray NOSTRIL-B BID [facility] Last Admin: 07/19/25 09:56 Dose: Not Given Documented By: REBECCA Non-Admin Reason: Patient Asleep Fluticasone/Umeclidinium/Vilanterol (Fluticasone/Umeclidinium/Vilanterol 200/62.5/25 Blst.W.Dev) 1 puff INHALE RDAILY [facility] Gabapentin (Gabapentin 300 Mg Capsule) 300 mg PO TID [facility] Last Admin: 07/19/25 10:54 Dose: Not Given Documented By: REBECCA Non-Admin Reason: per md hold Guaifenesin (Guaifenesin 200 Mg/10 Ml 10 Ml Liquid) 10 ml PO Q6H PRN PRN Reason: Cough Octreotide Acetate 500 mcg/ (Sodium Chloride) 501 mls @ 50.1 mls/hr IVCONT .Q10H [facility] Last Admin: 07/19/25 10:56 Dose: 50 mcg/hr, 50.1 mls/hr Documented By: REBECCA Lactulose (Lactulose 20 Gm/30 Ml Solution) 30 gm PO TID [facility] Last Admin: 07/19/25 09:56 Dose: Not Given Documented By: REBECCA Non-Admin Reason: hold per - GEOVANNI scheduled Levetiracetam (Levetiracetam 500 Mg Tablet) 500 mg PO BID [facility] Last Admin: 07/19/25 11:31 Dose: 500 mg Documented By: REBECCA Loratadine (Loratadine 10 Mg Tablet) 10 mg PO DAILY [facility] Last Admin: 07/19/25 11:29 Dose: Not Given Documented By: REBECCA Non-Admin Reason: NPO Magnesium Hydroxide (Milk Of Magnesia 30 Ml Oral.Susp) 30 ml PO DAILY PRN PRN Reason: Constipation Melatonin (Melatonin 3 Mg Tablet) 6 mg PO BEDTIME PRN PRN Reason: Insomnia Metoprolol Tartrate (Metoprolol Tartrate 25 Mg Tablet) 25 mg PO DAILY [facility]; Protocol Last Admin: 07/19/25 11:31 Dose: 25 mg Documented By: REBECCA Naloxone HCl (Naloxone Hcl 0.4 Mg/Ml Vial) 0.04 mg IVPUSH Q5M PRN PRN Reason: Excessive sedation or RR < 8 Non-Formulary Medication (Cyclosporine [Restasis]) 1 drop EYE-LEFT BID [facility] Oxycodone HCl (Oxycodone Hcl Immed Release 5 Mg Tablet) 5 mg PO Q8H PRN PRN Reason: Pain, Moderate(Pain Scale 4-6) Pantoprazole Sodium (Pantoprazole Sodium 40 Mg/10 Ml Vial) 40 mg IVPUSH DAILY@0630 [facility] Last Admin: 07/19/25 06:02 Dose: 40 mg Documented By: SHAYLA Rifaximin (Rifaximin 550 Mg Tablet) 550 mg PO BID [facility] Last Admin: 07/19/25 11:32 Dose: 550 mg Documented By: REBECCA Sodium Chloride (0.9 % Sodium Chloride Flush 3 Ml Syringe) 3 ml IVFLUSH QSHIFT [facility] Last Admin: 07/19/25 07:18 Dose: Not Given Documented By: REBECCA Non-Admin Reason: Previously Administered Sucralfate (Sucralfate 1 Gm Tablet) 1 gm PO QIDACHS [facility] Last Admin: 07/19/25 11:30 Dose: Not Given Documented By: REBECCA Non-Admin Reason: NPO Thiamine HCl (Thiamine Hcl 100 Mg Tablet) 100 mg PO DAILY [facility] Last Admin: 07/19/25 11:30 Dose: Not Given Documented By: REBECCA Non-Admin Reason: NPO Tizanidine HCl (Tizanidine Hcl 4 Mg Tablet) 2 mg PO Q8H PRN PRN Reason: Muscle Spasm Labs 07/19/25 06:32 07/18/25 11:38 Labs: Laboratory Results - last 24 hr 07/18/25 07/18/25 07/18/25 11:38 11:40 11:43 MCV 80.3 MCH 23.5 L MCHC 29.2 L RDW 17.7 H Plt Count 54 L MPV 11.7 Immature Gran % (Auto) 0.4 Neut % (Auto) 69.9 Lymph % (Auto) 16.7 L [place] % (Auto) 11.4 H Eos % (Auto) 1.2 Baso % (Auto) 0.4 Lymph # (Auto) 0.4 L [place] # (Auto) 0.3 Eos # (Auto) 0.0 Baso # (Auto) 0.0 Abs Immat Gran (auto) 0.01 Absolute Neuts (auto) 1.7 L Absolute Nucleated RBC 0.000 Nucleated RBC % (auto) 0.0 Smear Tech's Comments VERIFIED VBG pH VBG pCO2 VBG pO2 VBG HCO3 VBG O2 Saturation VBG Base Excess Anion Gap 9 L Estim Creat Clear Calc 40.8 Estimated GFR 40 POC Glucose Random Glucose 147 H Calcium 8.6 Total Bilirubin 0.7 AST 26 ALT < 6 Alkaline Phosphatase 55 Ammonia 46 Total Protein 5.8 L Albumin 3.0 L Stool Occult Blood POSITIVE Blood Type A Positive Antibody Screen NEGATIVE Crossmatch See Detail 07/18/25 07/19/25 07/19/25 11:45 06:32 09:36 MCV 81.3 MCH 24.2 L MCHC 29.8 L RDW 17.8 H Plt Count 56 L MPV 10.8 Immature Gran % (Auto) Neut % (Auto) Lymph % (Auto) [place] % (Auto) Eos % (Auto) Baso % (Auto) Lymph # (Auto) [place] # (Auto) Eos # (Auto) Baso # (Auto) Abs Immat Gran (auto) Absolute Neuts (auto) Absolute Nucleated RBC 0.000 Nucleated RBC % (auto) 0.0 Smear Tech's Comments VBG pH 7.39 VBG pCO2 60 VBG pO2 61 VBG HCO3 37 H VBG O2 Saturation TNP VBG Base Excess 11.3 Anion Gap Estim Creat Clear Calc Estimated GFR POC Glucose 121 H Random Glucose Calcium Total Bilirubin AST ALT Alkaline Phosphatase Ammonia Total Protein Albumin Stool Occult Blood Blood Type Antibody Screen Crossmatch Assessment and Plan (1) GAVE (gastric antral vascular ectasia): Status: Acute (2) Anemia: Status: Acute Plan This is a 79-year-old female resident of [facility] for the last 2 years with past medical history depression/anxiety, hepatitis-C, cirrhosis, GERD, COPD secondary to history of tobacco use, chronic low back pain, bilateral hip replacements, and mobility dependent on wheelchair, history of alcohol dependence, seizure disorder on Keppra, enucleated right eye who was sent in for anemia acute on chronic anemia possibly due to 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/history of alcohol dependence and hepatitis-C awake, alert and oriented no encephalopathy chronic thrombocytopenia as above for acute anemia hold lasix, spironolactone for now given soft bp continue lactulose, xifaxan h/o seizure disorder continue keppra HTN continue mtroprolol if bp remains stable hold lasix bp soft, follow closely COPD continue baseline inhalers chronic pain continue baseline oxycodone Mood continue baseline meds morbid obesity BMI 37.5 weight loss encouraged DVT prophylaxis-mechanical devices, chemoprophylaxis contraindicated due to anemia Code status-patient requests to be DNR/DNI (MOLST in system indicates the same) Quality Stroke Does the patient have a stroke diagnosis?: No VTE Prior VTE?: No VTE Risk Level:: Medical - moderate - high VTE Device Contraindication: N/A - Device Ordered VTE Drug Contraindication: Treatment Not Indicated
--- NOTE | 2025-07-19 12:49 | P.CNGI_ITS ---
History of Present Illness Data of Consult Service Date: 07/19/25 Requesting physician: Holly Cornejo Primary Care Provider: Unknown Physician HPI Reason for consult: Anemia This is a 79-year-old female with past medical history of hepatitis C status post SVR that has led to cirrhosis, COPD, seizure disorder, who is currently admitted to the hospital for anemia. History was obtained from the patient, who states that she [facility] and she was therefore sent to the hospital. She denies any abdominal pain, nausea, vomiting. No bowel movement changes. She does have COPD with chronic hypoxic respiratory failure at baseline, does not feel her breathing is worse compared to her baseline. Patient was seen in the hospital few months ago for similar presentation. EGD 04/02/25: 5 varices, portal hypertensive gastropathy, gave, portal present some duodenopathy. Plan was to repeat an upper endoscopy as outpatient, but patient could not be contacted to set this up. Review of Systems 2 Review of Systems: Yes all other systems are reviewed and are negative [facility] Past Medical History Medical History Hypercapnia COPD (chronic obstructive pulmonary disease) Hepatitis C test positive Cirrhosis of liver without ascites Serum ammonia increased Cirrhosis FH: cholecystectomy Hepatitis C Splenomegaly Type 2 diabetes mellitus Morbid obesity CHF (congestive heart failure) Surgical History Surgical History H/O enucleation of right eyeball Hx of appendectomy History of hip replacement Social History Social History Household Members: None Housing: Detention Housing Other:: [facility] Do you presently have visiting nurse or other home services: Yes Unable to assess alcohol history related to: Unable to respond Alcohol intake: former Patient Tobacco Use Status: Former Tobacco user Tobacco use type: Cigarette Cigarette Packs Per Day: 1 Cigarettes Per Day: 20.0 Years Smoked: 30 Second Hand Smoke Exposure: No Have you been hit, kicked, punched, or otherwise hurt by someone within the past year? If so, by whom?: No Do you feel safe in your current relationship?: No Current Relationship Is there a partner from a previous relationship who is making you feel unsafe now?: No Are you made to feel afraid or neglected: No Are you DNR?: No Advance Directives: Yes Advance Directives on File: Yes Advance Directives Date on File: 08/29/23 Do you have a plan to hurt others: No Plan Recently lost weight without trying: No Eating poorly because of decreased appetite: No Nutrition Risks: No Nutritional Risk Patient : No Poor oral hygiene: Yes service: No Meds Allergies Allergy/AdvReac Type Severity Reaction Status Date / Time acetaminophen (From Tylenol) Allergy Unknown Verified 07/19/25 13:58 Active Medications: Current Medications Albuterol Sulfate (Albuterol Sulfate 90 Mcg 8 Gm Inhaler) 1 puff INHALE BID [facility] Last Admin: 07/19/25 11:55 Dose: Not Given Alprazolam (Alprazolam 0.25 Mg Tablet) 0.25 mg PO BID [facility] Last Admin: 07/19/25 10:54 Dose: Not Given Benzonatate (Benzonatate 100 Mg Capsule) 200 mg PO TID [facility] Last Admin: 07/19/25 11:29 Dose: Not Given Calcium Carbonate (Calcium Carbonate 750 Mg Tab.Chew) 750 mg PO Q4H PRN PRN Reason: Heartburn Ceftriaxone Sodium (Ceftriaxone Sodium 1 Gm Vial) 1 gm IVPUSH Q24H [facility] Last Admin: 07/18/25 17:21 Dose: 1 gm Escitalopram Oxalate (Escitalopram Oxalate 10 Mg Tablet) 10 mg PO DAILY [facility] Last Admin: 07/19/25 11:31 Dose: 10 mg Fluticasone Propionate (Fluticasone Propionate Nasal 16 Gm [place]) 1 spray NOSTRIL-B BID [facility] Last Admin: 07/19/25 09:56 Dose: Not Given Fluticasone/Umeclidinium/Vilanterol (Fluticasone/Umeclidinium/Vilanterol 200/62.5/25 Blst.W.Dev) 1 puff INHALE RDAILY [facility] Last Admin: 07/19/25 11:55 Dose: Not Given Gabapentin (Gabapentin 300 Mg Capsule) 300 mg PO TID [facility] Last Admin: 07/19/25 10:54 Dose: Not Given Guaifenesin (Guaifenesin 200 Mg/10 Ml 10 Ml Liquid) 10 ml PO Q6H PRN PRN Reason: Cough Octreotide Acetate 500 mcg/ (Sodium Chloride) 501 mls @ 50.1 mls/hr IVCONT .Q10H [facility] Last Admin: 07/19/25 10:56 Dose: 50 mcg/hr, 50.1 mls/hr Lactulose (Lactulose 20 Gm/30 Ml Solution) 30 gm PO TID [facility] Last Admin: 07/19/25 09:56 Dose: Not Given Levetiracetam (Levetiracetam 500 Mg Tablet) 500 mg PO BID [facility] Last Admin: 07/19/25 11:31 Dose: 500 mg Loratadine (Loratadine 10 Mg Tablet) 10 mg PO DAILY [facility] Last Admin: 07/19/25 11:29 Dose: Not Given Magnesium Hydroxide (Milk Of Magnesia 30 Ml Oral.Susp) 30 ml PO DAILY PRN PRN Reason: Constipation Melatonin (Melatonin 3 Mg Tablet) 6 mg PO BEDTIME PRN PRN Reason: Insomnia Metoprolol Tartrate (Metoprolol Tartrate 25 Mg Tablet) 25 mg PO DAILY [facility]; Protocol Last Admin: 07/19/25 11:31 Dose: 25 mg Naloxone HCl (Naloxone Hcl 0.4 Mg/Ml Vial) 0.04 mg IVPUSH Q5M PRN PRN Reason: Excessive sedation or RR < 8 Non-Formulary Medication (Cyclosporine [Restasis]) 1 drop EYE-LEFT BID [facility] Oxycodone HCl (Oxycodone Hcl Immed Release 5 Mg Tablet) 5 mg PO Q8H PRN PRN Reason: Pain, Moderate(Pain Scale 4-6) Pantoprazole Sodium (Pantoprazole Sodium 40 Mg/10 Ml Vial) 40 mg IVPUSH DAILY@0630 [facility] Last Admin: 07/19/25 06:02 Dose: 40 mg Rifaximin (Rifaximin 550 Mg Tablet) 550 mg PO BID [facility] Last Admin: 07/19/25 11:32 Dose: 550 mg Sodium Chloride (0.9 % Sodium Chloride Flush 3 Ml Syringe) 3 ml IVFLUSH QSHIFT [facility] Last Admin: 07/19/25 07:18 Dose: Not Given Sucralfate (Sucralfate 1 Gm Tablet) 1 gm PO QIDACHS [facility] Last Admin: 07/19/25 11:30 Dose: Not Given Thiamine HCl (Thiamine Hcl 100 Mg Tablet) 100 mg PO DAILY [facility] Last Admin: 07/19/25 11:30 Dose: Not Given Tizanidine HCl (Tizanidine Hcl 4 Mg Tablet) 2 mg PO Q8H PRN PRN Reason: Muscle Spasm Home Medications ?Medication ?Instructions ?Recorded ?Confirmed ?Last Taken ?Type alprazolam 0.25 mg tablet (Xanax) 0.25 mg PO BID Anxie ty 06/28/23 07/18/25 Unknown History bisacodyl 10 mg rectal suppository 10 mg OR DAILY PRN Constipation 06/28/23 07/18/25 Unknown History cetirizine 10 mg tablet 10 mg PO DAILY 06/28/2307/08 Unknown History fluticasone propionate 50 1 spray intranasal BID 06/2807/18/25 Unknown History mcg/actuation nasal spray,suspension (Flonase Allergy Relief) gabapentin 300 mg capsule 300 mg PO TID 06/28/2307/18 Unknown History lactulose 10 gram/15 mL oral 45 ml PO TID 06/28/2310/0106/26/23 History solution levetiracetam 500 mg tablet 500 mg PO BID 06/28/2310/01 Unknown History (Keppra) magnesium hydroxide 400 mg/5 mL 30 ml PO DAILY PRN Con stipation 06/28/23 07/18/25 Unknown History oral suspension (Milk of Magnesia) metoprolol tartrate 25 mg tablet 25 mg PO DAILY 07/18/25 Unknown History multivitamin 1 tab PO DAILY 06/28/2307/08 Unknown History pantoprazole 40 mg tablet,delayed 40 mg PO DAILY@0630 06/28/23 07/18/25 Unknown History release sodium phosphates 19 gram-7 118 ml OR DAILY PRN Consti pation 06/28/23 07/18/25 Unknown History gram/118 mL enema (Fleet Enema) thiamine HCl (vitamin B1) 100 mg 100 mg PO DAILY 06/2807/18/25 Unknown History tablet tizanidine 2 mg tablet 2 mg PO Q8H PRN Muscle Spasm 06/28/23 07/18/25 Unknown History cyclosporine 0.05 % eye drops in a 1 drp ophthalmic-Le ft BID 04/01/25 07/18/25 Unknown History dropperette (Restasis) escitalopram oxalate 10 mg tablet 10 mg PO DAILY 04/0107/18/25 Unknown History fluticasone fur. 200 mcg-umeclid 1 ea inhalation DAILY 04/01/25 07/18/25 Unknown History 62.5 mcg-vilant 25 mcg inhalat.powder (Trelegy Ellipta) guaifenesin 100 mg/5 mL oral 200 mg PO Q6H PRN Cough 0 04/01/25 07/18/25 Unknown History liquid (Camryn-Tussin) spironolactone 25 mg tablet 12.5 mg PO DAILY 04/01/25 07/18/25 Unknown History albuterol sulfate 90 mcg/actuation 1 inh inhalation BI D 05/08/25 07/18/25 Unknown History aerosol inhaler benzonatate 200 mg capsule 200 mg PO TID 05/08/2507/08 Unknown History furosemide 40 mg tablet 40 mg PO BID 05/08/25 Unknown History oxycodone 5 mg tablet 5 mg PO Q8H PRN Pain 5 07/18/25 Unknown History Physical Exam 2 Exam: Exam: Elderly female Frail-appearing Nasal cannula in place Nonicteric Abdomen soft, mildly distended, nontender Mild lower extremity edema Vital Signs: Vital Signs: Last Vital Signs Temp 98.2 F 07/19/25 11:09 Pulse 67 07/19/25 11:09 Resp 16 07/19/25 11:09 BP 130/59 L 07/19/25 11:09 Pulse Ox 99 07/19/25 11:09 O2 Del Method Nasal Cannula 07/19/25 11:09 O2 Flow Rate 3 07/19/25 11:09 Oxygen Flow Rate 2 07/18/25 11:16 BMI result Body Mass Index 37.4 Results Labs 07/19/25 06:32 07/18/25 11:38 Labs: Short CBC 07/18/25 07/19/25 Range/Units 11:38 06:32 WBC 2.5 L 3.1 L (4.8-10.8) X10*3/uL Hgb 6.9 L* 7.5 L (12.0-16.0) g/dl Hct 23.6 L 25.2 L (37.0-47.0) % Plt Count 54 L 56 L (160-400) X10*3/uL Assessment and Plan (1) Symptomatic anemia: Status: Resolved (2) Cirrhosis: Status: Inactive Plan Patient presenting with progressive anemia in the context of known cirrhosis and GAVE. Other differentials include bleeding from portal hypertensive gastropathy, gastritis, duodenitis, PUD, AVMs. Less likely to be variceal bleeding as she had flat varices just a few months ago. Patient was educated that should get upper endoscopy done electively every few months until GAVE completely ablated to avoid readmission. She will also need to follow up in GI office for cont'd cirrhosis care. Contact information from her rehab facility will be communicated to the neurosurgical nurse practitioner. Plan: - Keep x2 IV access at all times - Monitor H/H BID - Agree with empiric PPI, octreotide and CTX - Please keep NPO for EGD today Thank you for allowing me to participate in her care. Please do not hesitate to reach out for any questions or concerns Procedures Date of Service Date of Service: 07/19/25
--- NOTE | 2025-07-19 13:54 | HO.ANESPROP2 ---
[facility] Active Problems Active Problems: All Active Problems Anemia (Acute) Ascites (Acute) GAVE (gastric antral vascular ectasia) (Acute) Anemia (Acute) Hepatitis C test positive (Acute) Cirrhosis of liver without ascites (Acute) Chronic lung disease (Acute) Past Medical History Medical History Hypercapnia COPD (chronic obstructive pulmonary disease) Hepatitis C test positive Cirrhosis of liver without ascites Serum ammonia increased Cirrhosis FH: cholecystectomy Hepatitis C Splenomegaly Type 2 diabetes mellitus Morbid obesity CHF (congestive heart failure) Family History Family history of problems with anesthesia: Yes Surgical History Surgical History H/O enucleation of right eyeball Hx of appendectomy History of hip replacement History of Problems with Anesthesia: No Social History Social History Household Members: None Housing: Snf Housing Other:: [facility] Do you presently have visiting nurse or other home services: Yes Unable to assess alcohol history related to: Unable to respond Alcohol intake: former Patient Tobacco Use Status: Former Tobacco user Tobacco use type: Cigarette Cigarette Packs Per Day: 1 Cigarettes Per Day: 20.0 Years Smoked: 30 Second Hand Smoke Exposure: No Have you been hit, kicked, punched, or otherwise hurt by someone within the past year? If so, by whom?: No Do you feel safe in your current relationship?: No Current Relationship Is there a partner from a previous relationship who is making you feel unsafe now?: No Are you made to feel afraid or neglected: No Are you DNR?: No Advance Directives: Yes Advance Directives on File: Yes Advance Directives Date on File: 08/29/23 Do you have a plan to hurt others: No Plan Recently lost weight without trying: No Eating poorly because of decreased appetite: No Nutrition Risks: No Nutritional Risk Patient : No Poor oral hygiene: Yes service: No Meds Allergies Allergy/AdvReac Type Severity Reaction Status Date / Time acetaminophen (From Tylenol) Allergy Unknown Verified 07/18/25 11:24 Active Medications: Current Medications Albuterol Sulfate (Albuterol Sulfate 90 Mcg 8 Gm Inhaler) 1 puff INHALE BID [facility] Last Admin: 07/19/25 11:55 Dose: Not Given Alprazolam (Alprazolam 0.25 Mg Tablet) 0.25 mg PO BID [facility] Last Admin: 07/19/25 10:54 Dose: Not Given Benzonatate (Benzonatate 100 Mg Capsule) 200 mg PO TID [facility] Last Admin: 07/19/25 11:29 Dose: Not Given Calcium Carbonate (Calcium Carbonate 750 Mg Tab.Chew) 750 mg PO Q4H PRN PRN Reason: Heartburn Ceftriaxone Sodium (Ceftriaxone Sodium 1 Gm Vial) 1 gm IVPUSH Q24H [facility] Last Admin: 07/18/25 17:21 Dose: 1 gm Escitalopram Oxalate (Escitalopram Oxalate 10 Mg Tablet) 10 mg PO DAILY [facility] Last Admin: 07/19/25 11:31 Dose: 10 mg Fluticasone Propionate (Fluticasone Propionate Nasal 16 Gm [place]) 1 spray NOSTRIL-B BID [facility] Last Admin: 07/19/25 09:56 Dose: Not Given Fluticasone/Umeclidinium/Vilanterol (Fluticasone/Umeclidinium/Vilanterol 200/62.5/25 Blst.W.Dev) 1 puff INHALE RDAILY [facility] Last Admin: 07/19/25 11:55 Dose: Not Given Gabapentin (Gabapentin 300 Mg Capsule) 300 mg PO TID [facility] Last Admin: 07/19/25 10:54 Dose: Not Given Guaifenesin (Guaifenesin 200 Mg/10 Ml 10 Ml Liquid) 10 ml PO Q6H PRN PRN Reason: Cough Octreotide Acetate 500 mcg/ (Sodium Chloride) 501 mls @ 50.1 mls/hr IVCONT .Q10H [facility] Last Admin: 07/19/25 10:56 Dose: 50 mcg/hr, 50.1 mls/hr Lactulose (Lactulose 20 Gm/30 Ml Solution) 30 gm PO TID [facility] Last Admin: 07/19/25 09:56 Dose: Not Given Levetiracetam (Levetiracetam 500 Mg Tablet) 500 mg PO BID [facility] Last Admin: 07/19/25 11:31 Dose: 500 mg Loratadine (Loratadine 10 Mg Tablet) 10 mg PO DAILY [facility] Last Admin: 07/19/25 11:29 Dose: Not Given Magnesium Hydroxide (Milk Of Magnesia 30 Ml Oral.Susp) 30 ml PO DAILY PRN PRN Reason: Constipation Melatonin (Melatonin 3 Mg Tablet) 6 mg PO BEDTIME PRN PRN Reason: Insomnia Metoprolol Tartrate (Metoprolol Tartrate 25 Mg Tablet) 25 mg PO DAILY [facility]; Protocol Last Admin: 07/19/25 11:31 Dose: 25 mg Naloxone HCl (Naloxone Hcl 0.4 Mg/Ml Vial) 0.04 mg IVPUSH Q5M PRN PRN Reason: Excessive sedation or RR < 8 Naloxone HCl (Naloxone Hcl 0.4 Mg/Ml Vial) 0.04 mg IVPUSH Q5M PRN PRN Reason: Excessive sedation or RR < 8 Non-Formulary Medication (Cyclosporine [Restasis]) 1 drop EYE-LEFT BID [facility] Oxycodone HCl (Oxycodone Hcl Immed Release 5 Mg Tablet) 5 mg PO Q8H PRN PRN Reason: Pain, Moderate(Pain Scale 4-6) Pantoprazole Sodium (Pantoprazole Sodium 40 Mg/10 Ml Vial) 40 mg IVPUSH DAILY@0630 [facility] Last Admin: 07/19/25 06:02 Dose: 40 mg Rifaximin (Rifaximin 550 Mg Tablet) 550 mg PO BID [facility] Last Admin: 07/19/25 11:32 Dose: 550 mg Sodium Chloride (0.9 % Sodium Chloride Flush 3 Ml Syringe) 3 ml IVFLUSH QSHIFT [facility] Last Admin: 07/19/25 07:18 Dose: Not Given Sucralfate (Sucralfate 1 Gm Tablet) 1 gm PO QIDACHS [facility] Last Admin: 07/19/25 11:30 Dose: Not Given Thiamine HCl (Thiamine Hcl 100 Mg Tablet) 100 mg PO DAILY [facility] Last Admin: 07/19/25 11:30 Dose: Not Given Tizanidine HCl (Tizanidine Hcl 4 Mg Tablet) 2 mg PO Q8H PRN PRN Reason: Muscle Spasm Home Medications ?Medication ?Instructions ?Recorded ?Confirmed ?Last Taken ?Type alprazolam 0.25 mg tablet (Xanax) 0.25 mg PO BID Anxiety 06/28/23 07/18/25 Unknown History bisacodyl 10 mg rectal suppository 10 mg [place] DAILY PRN Constipation 06/28/23 07/18/25 Unknown History cetirizine 10 mg tablet 10 mg PO DAILY 06/28/23 07/18/25 Unknown History fluticasone propionate 50 1 spray intranasal BID 06/28/23 07/18/25 Unknown History mcg/actuation nasal spray,suspension (Flonase Allergy Relief) gabapentin 300 mg capsule 300 mg PO TID 06/28/23 07/18/25 Unknown History lactulose 10 gram/15 mL oral 45 ml PO TID 06/28/23 07/18/25 06/26/23 History solution levetiracetam 500 mg tablet 500 mg PO BID 06/28/23 07/18/25 Unknown History (Keppra) magnesium hydroxide 400 mg/5 mL 30 ml PO DAILY PRN Constipation 06/28/23 07/18/25 Unknown History oral suspension (Milk of Magnesia) metoprolol tartrate 25 mg tablet 25 mg PO DAILY 06/28/23 07/18/25 Unknown History multivitamin 1 tab PO DAILY 06/28/23 07/18/25 Unknown History pantoprazole 40 mg tablet,delayed 40 mg PO DAILY@0630 06/28/23 07/18/25 Unknown History release sodium phosphates 19 gram-7 118 ml [place] DAILY PRN Constipation 06/28/23 07/18/25 Unknown History gram/118 mL enema (Fleet Enema) thiamine HCl (vitamin B1) 100 mg 100 mg PO DAILY 06/28/23 07/18/25 Unknown History tablet tizanidine 2 mg tablet 2 mg PO Q8H PRN Muscle Spasm 06/28/23 07/18/25 Unknown History cyclosporine 0.05 % eye drops in a 1 drp ophthalmic-Left BID 04/01/25 07/18/25 Unknown History dropperette (Restasis) escitalopram oxalate 10 mg tablet 10 mg PO DAILY 04/01/25 07/18/25 Unknown History fluticasone fur. 200 mcg-umeclid 1 ea inhalation DAILY 04/01/25 07/18/25 Unknown History 62.5 mcg-vilant 25 mcg inhalat.powder (Trelegy Ellipta) guaifenesin 100 mg/5 mL oral 200 mg PO Q6H PRN Cough 04/01/25 07/18/25 Unknown History liquid (Camryn-Tussin) spironolactone 25 mg tablet 12.5 mg PO DAILY 04/01/25 07/18/25 Unknown History albuterol sulfate 90 mcg/actuation 1 inh inhalation BID 05/08/25 07/18/25 Unknown History aerosol inhaler benzonatate 200 mg capsule 200 mg PO TID 05/08/25 07/18/25 Unknown History furosemide 40 mg tablet 40 mg PO BID 05/08/25 07/18/25 Unknown History oxycodone 5 mg tablet 5 mg PO Q8H PRN Pain 05/08/25 07/18/25 Unknown History Exam Height,Weight and Vital Signs: Height 5 ft 4 in Weight 98.8 kg Last Vital Signs Temp 98.2 F 07/19/25 11:09 Pulse 67 07/19/25 11:09 Resp 16 07/19/25 11:09 BP 130/59 L 07/19/25 11:09 Pulse Ox 99 07/19/25 11:09 O2 Del Method Nasal Cannula 07/19/25 11:09 O2 Flow Rate 3 07/19/25 11:09 Oxygen Flow Rate 2 07/18/25 11:16 Pertinent Lab Results Pertinent Lab Results: Laboratory Tests 07/18/25 07/18/25 07/18/25 11:38 11:40 11:43 WBC 2.5 L RBC 2.94 L Hgb 6.9 L* Hct 23.6 L MCV 80.3 MCH 23.5 L MCHC 29.2 L RDW 17.7 H Plt Count 54 L MPV 11.7 Immature Gran % (Auto) 0.4 Neut % (Auto) 69.9 Lymph % (Auto) 16.[address] [place] % (Auto) 11.4 H Eos % (Auto) 1.2 Baso % (Auto) 0.4 Lymph # (Auto) 0.[address] [place] # (Auto) 0.3 Eos # (Auto) 0.0 Baso # (Auto) 0.0 Abs Immat Gran (auto) 0.01 Absolute Neuts (auto) 1.7 L Absolute Nucleated RBC 0.000 Nucleated RBC % (auto) 0.0 Smear Tech's Comments VERIFIED VBG pH VBG pCO2 VBG pO2 VBG HCO3 VBG O2 Saturation VBG Base Excess Sodium 142 Potassium 3.6 Chloride 104 Carbon Dioxide 33 H Anion Gap 9 L BUN 29 H Creatinine 1.30 Estim Creat Clear Calc 40.8 Estimated GFR 40 POC Glucose Random Glucose 147 H Calcium 8.6 Total Bilirubin 0.7 AST 26 ALT < 6 Alkaline Phosphatase 55 Ammonia 46 Total Protein 5.8 L Albumin 3.0 L Stool Occult Blood POSITIVE Blood Type A Positive Antibody Screen NEGATIVE Crossmatch See Detail 07/18/25 07/19/25 07/19/25 11:45 06:32 09:36 WBC 3.1 L RBC 3.10 L Hgb 7.5 L Hct 25.2 L MCV 81.3 MCH 24.2 L MCHC 29.8 L RDW 17.8 H Plt Count 56 L MPV 10.8 Immature Gran % (Auto) Neut % (Auto) Lymph % (Auto) [place] % (Auto) Eos % (Auto) Baso % (Auto) Lymph # (Auto) [place] # (Auto) Eos # (Auto) Baso # (Auto) Abs Immat Gran (auto) Absolute Neuts (auto) Absolute Nucleated RBC 0.000 Nucleated RBC % (auto) 0.0 Smear Tech's Comments VBG pH 7.39 VBG pCO2 60 VBG pO2 61 VBG HCO3 37 H VBG O2 Saturation TNP VBG Base Excess 11.3 Sodium Potassium Chloride Carbon Dioxide Anion Gap BUN Creatinine Estim Creat Clear Calc Estimated GFR POC Glucose 121 H Random Glucose Calcium Total Bilirubin AST ALT Alkaline Phosphatase Ammonia Total Protein Albumin Stool Occult Blood Blood Type Antibody Screen Crossmatch Airway Mallampati Class: III TM Dist: >3cm Neck ROM: Full Heart: rrr Lungs: cta Assessment and Plan Assessment Anesthesia Assessment: Anesthesia Plan Discussed and Chart Reviewed Final Anesthetic Review Family History of Problems with Anesthesia: Yes History of Problems with Anesthesia: No NPO: Yes ASA Class: III Final Preanesthetic Review: No Changes in Pt Med Stat, Meds/Allgs Chart Reviewed and Consent Obtained/Reviewed Patient Risk: Intermediate Procedure Risk: Intermediate Anesthetic Plan Anesthetic Plan: MAC: Disposition: Standard PACU
[2025-07-19 14:00] LABS: Glucose, Whole Blood 116 mg/dL (60-115)
--- NOTE | 2025-07-19 14:55 | P.OP_ITS ---
Operative Note Operative Note Date of Service: 07/19/25 Narrative: Procedure: Esophagogastroduodenoscopy Endoscopist: Rosa Russell MD Indication: Anemia Anesthesia Provider: Elin Wu MD Anesthesia Type: MAC ?? EGD Procedure:?? The procedure, indications, preparation and potential complications were reviewed with the patient, who indicated understanding and gave written informed consent to proceed. A physical exam was performed. The endoscope was introduced through the mouth, and advanced to the second part of duodenum. The mucosa was carefully examined on slow withdrawal of the endoscope. The patient tolerated the procedure well. There were no immediate complications.? ? EGD Findings:? * Esophagus:? Normal mucosa noted in the entire esophagus. The Z line was at 35 cm. Flat varices were noted in lower esophagus. * Stomach:?Diffuse congestion and erythema in mosaic pattern consistent with portal hypertensive gastropathy was noted in the whole stomach. Retroflexion was performed in the cardia. Watermelon appearance of antrum noted with spontaneous bleeding at 6 o clock and 8 o clock position consistent with gastric antral vascular ectasia (GAVE). Argon plasma coagulation (APC) was applied using circumferential catheter for hemostasis. * Duodenum:? Normal duodenal mucosa ? EGD Impressions:? * Flat varices * Portal hypertensive gastropathy (biopsy) * Oozing GAVE (APC) * Normal duodenum. ?? Recommendations:?? * Can discontinue octreotide * Continue PPI - can be switched to oral * Cont carafate 10 ml QID x 14 days * Complete ceftriaxone for total of 7 days. Can be switched to PO cipro on discharge. * Avoid NSAIDs. * Outpatient follow up and repeat EGD will be arranged. Above has been reviewed with the patient.
--- NOTE | 2025-07-19 15:57 | MHC.CM.PN ---
IMM 07/19/25, Pt. lives at [facility]. PCP is [facility] doctor, she does not know their name. HCP is on file and confirmed. DCP is to return to [facility] via BLS at DC. CM to follow for DC needs.
[2025-07-19] MEDS: Albuterol Sulfate 90 MCG 8 GM INHALER 1 PUFF INHALE (21:49)
[2025-07-20] VITALS (9 sets, daily range): BP systolic 102–149; BP diastolic 53–59; PULSE 60–74; RESP 16–20; TEMP 35.9–36.7; O2SAT 95–100
[2025-07-20] MEDS: 0.9 % Sodium Chloride Flush 3 ML SYRINGE IVFLUSH ×4 (00:24→20:29)
[2025-07-20] MEDS: oxyCODONE HCl Immed Release 5 MG TABLET PO (00:29)
[2025-07-20] MEDS: Albuterol Sulfate 90 MCG 8 GM INHALER 1 PUFF INHALE ×2 (08:06→19:05)
[2025-07-20] MEDS: Sucralfate Oral Suspension 1 GM/10 ML ORAL.SUSP PO ×3 (08:29→15:38)
[2025-07-20] MEDS: Fluticasone/Umeclidinium/Vilanterol 200/62.5/25 BLST.W.DEV 1 PUFF INHALE (11:14)
--- NOTE | 2025-07-20 13:23 | HO.PM.IMPN ---
Subjective Subjective Date of Service: 07/20/25 Interval History: c/o left facial pain and swelling Physical Exam Exam: Exam: Elderly female Frail-appearing Nasal cannula in place Nonicteric Abdomen soft, mildly distended, nontender Mild lower extremity edema Vital Signs: Vital Signs: Last Vital Signs Temp 97.5 F 07/20/25 11:23 Pulse 60 07/20/25 11:23 Resp 16 07/20/25 11:23 BP 126/56 L 07/20/25 11:23 Pulse Ox 100 07/20/25 11:23 O2 Del Method Nasal Cannula 07/20/25 11:23 O2 Flow Rate 4 07/20/25 11:23 Oxygen Flow Rate 2 07/18/25 11:16 BMI result Body Mass Index 37.4 Const: Other: General: AO X 3, no acute distress Resp: CTA bilateral HEENT: some fullness on left face that is painful CVS: S1,S2,RRR GI: +BS, NT, no distention Skin: No rash Neuro: motor grossly intact Psych: appropriate affect Objective Data Active Medications Albuterol Sulfate (Albuterol Sulfate 90 Mcg 8 Gm Inhaler) 1 puff INHALE BID [facility] Last Admin: 07/20/25 08:06 Dose: 1 puff Documented By: CARMITA Alprazolam (Alprazolam 0.25 Mg Tablet) 0.25 mg PO BID [facility] Last Admin: 07/20/25 08:29 Dose: 0.25 mg Documented By: PAULA Benzonatate (Benzonatate 100 Mg Capsule) 200 mg PO TID [facility] Last Admin: 07/20/25 08:29 Dose: 200 mg Documented By: PAULA Calcium Carbonate (Calcium Carbonate 750 Mg Tab.Chew) 750 mg PO Q4H PRN PRN Reason: Heartburn Ceftriaxone Sodium (Ceftriaxone Sodium 1 Gm Vial) 1 gm IVPUSH Q24H [facility] Last Admin: 07/19/25 16:03 Dose: 1 gm Documented By: REBECCA Escitalopram Oxalate (Escitalopram Oxalate 10 Mg Tablet) 10 mg PO DAILY [facility] Last Admin: 07/20/25 08:29 Dose: 10 mg Documented By: PAULA Fluticasone Propionate (Fluticasone Propionate Nasal 16 Gm [place]) 1 spray NOSTRIL-B BID [facility] Last Admin: 07/20/25 08:32 Dose: Not Given Documented By: PAULA Non-Admin Reason: Med Not Available Fluticasone/Umeclidinium/Vilanterol (Fluticasone/Umeclidinium/Vilanterol 200/62.5/25 Blst.W.Dev) 1 puff INHALE RDAILY [facility] Last Admin: 07/20/25 11:14 Dose: 1 puff Documented By: CARMITA Gabapentin (Gabapentin 300 Mg Capsule) 300 mg PO TID [facility] Last Admin: 07/20/25 08:29 Dose: 300 mg Documented By: PAULA Guaifenesin (Guaifenesin 200 Mg/10 Ml 10 Ml Liquid) 10 ml PO Q6H PRN PRN Reason: Cough Lactulose (Lactulose 20 Gm/30 Ml Solution) 30 gm PO TID [facility] Last Admin: 07/20/25 08:31 Dose: Not Given Documented By: PAULA Non-Admin Reason: Patient Refused Levetiracetam (Levetiracetam 500 Mg Tablet) 500 mg PO BID [facility] Last Admin: 07/20/25 08:29 Dose: 500 mg Documented By: PAULA Loratadine (Loratadine 10 Mg Tablet) 10 mg PO DAILY [facility] Last Admin: 07/20/25 08:28 Dose: 10 mg Documented By: PAULA Magnesium Hydroxide (Milk Of Magnesia 30 Ml Oral.Susp) 30 ml PO DAILY PRN PRN Reason: Constipation Melatonin (Melatonin 3 Mg Tablet) 6 mg PO BEDTIME PRN PRN Reason: Insomnia Last Admin: 07/20/25 00:29 Dose: 6 mg Documented By: ELLIOT Metoprolol Tartrate (Metoprolol Tartrate 25 Mg Tablet) 25 mg PO DAILY [facility]; Protocol Last Admin: 07/20/25 08:29 Dose: 25 mg Documented By: PAULA Naloxone HCl (Naloxone Hcl 0.4 Mg/Ml Vial) 0.04 mg IVPUSH Q5M PRN PRN Reason: Excessive sedation or RR < 8 Naloxone HCl (Naloxone Hcl 0.4 Mg/Ml Vial) 0.04 mg IVPUSH Q5M PRN PRN Reason: Excessive sedation or RR < 8 Oxycodone HCl (Oxycodone Hcl Immed Release 5 Mg Tablet) 5 mg PO Q8H PRN PRN Reason: Pain, Moderate(Pain Scale 4-6) Last Admin: 07/20/25 00:29 Dose: 5 mg Documented By: ELLIOT Pantoprazole Sodium (Pantoprazole Sodium 40 Mg/10 Ml Vial) 40 mg IVPUSH DAILY@0630 [facility] Last Admin: 07/20/25 06:11 Dose: 40 mg Documented By: ELLIOT Rifaximin (Rifaximin 550 Mg Tablet) 550 mg PO BID [facility] Last Admin: 07/20/25 08:28 Dose: 550 mg Documented By: PAULA Sodium Chloride (0.9 % Sodium Chloride Flush 3 Ml Syringe) 3 ml IVFLUSH QSHIFT [facility] Last Admin: 07/20/25 08:31 Dose: 3 ml Documented By: PAULA Sucralfate (Suc[facility] 1 Gm Tablet) [facility] Last Admin: 07/20/25 11:50 Dose: 1 gm Documented By: PAULA Sucralfate (Sucralfate Oral Suspension 1 Gm/10 Ml Oral.Susp) 1 gm PO QIDAS [facility] Last Admin: 07/20/25 11:50 Dose: 1 gm Documented By: PAULA Thiamine HCl (Thiamine Hcl 100 Mg Tablet) 100 mg PO DAILY [facility] Last Admin: 07/20/25 08:28 Dose: 100 mg Documented By: PAULA Tizanidine HCl (Tizanidine Hcl 4 Mg Tablet) 2 mg PO Q8H PRN PRN Reason: Muscle Spasm Labs 07/19/25 06:32 07/21/25 15:53 Labs: Laboratory Results - last 24 hr 07/19/25 13:55 POC Glucose 116 H Assessment and Plan (1) GAVE (gastric antral vascular ectasia): Status: Acute (2) Anemia: Status: Acute Plan This is a 79-year-old female resident of [facility] for the last 2 years with past medical history depression/anxiety, hepatitis-C, cirrhosis, GERD, COPD secondary to history of tobacco use, chronic low back pain, bilateral hip replacements, and mobility dependent on wheelchair, history of alcohol dependence, seizure disorder on Keppra, enucleated right eye who was sent in for anemia acute on chronic anemia possibly due to 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 heme + s/p EGD 04/02/25 - showing portal hypertensive gastropathy, oozing GAVE, flat varices EGD 07/19 EGD Impressions:? Flat varices Portal hypertensive gastropathy (biopsy) Oozing GAVE (APC) Normal duodenum.?? Recommendations:?? Can discontinue octreotide Continue PPI - can be switched to oral Cont carafate 10 ml QID x 14 days Complete ceftriaxone for total of 7 days. Can be switched to PO cipro on discharge. Avoid NSAIDs. Outpatient follow up and repeat EGD will be arranged. 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 /history of alcohol dependence and hepatitis-C awake, alert and oriented no encephalopathy chronic thrombocytopenia as above for acute anemia hold lasix, spironolactone for now given soft bp continue lactulose, xifaxan h/o seizure disorder continue keppra HTN continue mtroprolol if bp remains stable hold lasix bp soft, follow closely COPD continue baseline inhalers chronic pain continue baseline oxycodone Mood continue baseline meds morbid obesity BMI 37.5 weight loss encouraged DVT prophylaxis-mechanical devices, chemoprophylaxis contraindicated due to anemia Code status-patient requests to be DNR/DNI (MOLST in system indicates the same) Quality Stroke Does the patient have a stroke diagnosis?: No VTE Prior VTE?: No VTE Risk Level:: Medical - moderate - high VTE Device Contraindication: N/A - Device Ordered VTE Drug Contraindication: Treatment Not Indicated
[2025-07-21] VITALS (9 sets, daily range): BP systolic 101–134; BP diastolic 57–62; PULSE 67–76; RESP 16–20; TEMP 36.3–37.4; O2SAT 96–98
[2025-07-21] MEDS: Fluticasone/Umeclidinium/Vilanterol 200/62.5/25 BLST.W.DEV 1 PUFF INHALE (07:47)
[2025-07-21] MEDS: Albuterol Sulfate 90 MCG 8 GM INHALER 1 PUFF INHALE ×2 (07:47→20:36)
[2025-07-21] MEDS: Sucralfate Oral Suspension 1 GM/10 ML ORAL.SUSP PO ×4 (09:34→19:50)
[2025-07-21] MEDS: 0.9 % Sodium Chloride Flush 3 ML SYRINGE IVFLUSH ×3 (09:34→22:58)
--- NOTE | 2025-07-21 11:00 | PC.NURSE ---
Patient has order for Flonase, medication not available on the unit, called pharmacy and requested the medication to be delivered. Patient did not receive morning dose
[2025-07-21 16:32] LABS: Anion Gap 12 (12-20); Blood Urea Nitrogen 34 mg/dL (9-16); Calcium 8.5 mg/dL (8.4-10.2); Carbon Dioxide 31 mmol/L (22-29); Chloride 105 mmol/L (96-108); Creatinine Clr Calc Pharmacy 47.7; Estimated Glomerular Filt Rate 48; Magnesium 2.3 mg/dL (1.6-2.6); Potassium 4.3 mmol/L (3.3-5.1); Sodium 144 mmol/L (135-145)
[2025-07-22 03:16] VITALS: BP 107/64; PULSE 68; RESP 19; TEMP 36.4; O2SAT 94
[2025-07-22 07:39] VITALS: BP 113/54; PULSE 61; RESP 19; TEMP 36.3; O2SAT 97
[2025-07-22] MEDS: Albuterol Sulfate 90 MCG 8 GM INHALER 1 PUFF INHALE (07:45)
[2025-07-22] MEDS: Fluticasone/Umeclidinium/Vilanterol 200/62.5/25 BLST.W.DEV 1 PUFF INHALE (07:45)
[2025-07-22 07:49] VITALS: PULSE 62; RESP 16
[2025-07-22] MEDS: 0.9 % Sodium Chloride Flush 3 ML SYRINGE IVFLUSH (08:25)
[2025-07-22] MEDS: Sucralfate Oral Suspension 1 GM/10 ML ORAL.SUSP PO ×3 (08:25→15:15)
[2025-07-22 11:19] VITALS: BP 126/60; PULSE 57; RESP 18; TEMP 36.2; O2SAT 96
--- NOTE | 2025-07-22 12:30 | P.PNIM_ITS ---
Subjective Subjective Date of Service: 07/21/25 Interval History: No more pain, overall stable Physical Exam 2 Exam: Exam: Elderly female Frail-appearing Nasal cannula in place Nonicteric Abdomen soft, mildly distended, nontender Mild lower extremity edema Vital Signs: Vital Signs: Last Vital Signs Temp 97.1 F 07/22/25 11:19 Pulse 57 07/22/25 11:19 Resp 18 07/22/25 11:19 BP 126/60 07/22/25 11:19 Pulse Ox 96 07/22/25 11:19 O2 Del Method Nasal Cannula 07/22/25 11:19 O2 Flow Rate 3 07/22/25 11:19 Oxygen Flow Rate 2 07/18/25 11:16 BMI result Body Mass Index 37.4 Const: Other: General: AO X 3, no acute distress Resp: CTA bilateral HEENT: some fullness on left face that is painful CVS: S1,S2,RRR GI: +BS, NT, no distention Skin: No rash Neuro: motor grossly intact Psych: appropriate affect Objective Data Active Medications Albuterol Sulfate (Albuterol Sulfate 90 Mcg 8 Gm Inhaler) 1 puff INHALE BID [facility] Last Admin: 07/22/25 07:45 Dose: 1 puff Documented By: SANDIE Alprazolam (Alprazolam 0.25 Mg Tablet) 0.25 mg PO BID [facility] Last Admin: 07/22/25 08:24 Dose: 0.25 mg Documented By: KRISTEN Benzonatate (Benzonatate 100 Mg Capsule) 200 mg PO TID [facility] Last Admin: 07/22/25 08:24 Dose: 200 mg Documented By: KRISTEN Calcium Carbonate (Calcium Carbonate 750 Mg Tab.Chew) 750 mg PO Q4H PRN PRN Reason: Heartburn Ceftriaxone Sodium (Ceftriaxone Sodium 1 Gm Vial) 1 gm IVPUSH Q24H [facility] Last Admin: 07/21/25 17:31 Dose: 1 gm Documented By: MAGED Escitalopram Oxalate (Escitalopram Oxalate 10 Mg Tablet) 10 mg PO DAILY [facility] Last Admin: 07/22/25 08:24 Dose: 10 mg Documented By: KRISTEN Fluticasone Propionate (Fluticasone Propionate Nasal 16 Gm [place]) 1 spray NOSTRIL-B BID [facility] Last Admin: 07/22/25 08:50 Dose: 1 spray Documented By: KRISTEN Fluticasone/Umeclidinium/Vilanterol (Fluticasone/Umeclidinium/Vilanterol 200/62.5/25 Blst.W.Dev) 1 puff INHALE RDAILY [facility] Last Admin: 07/22/25 07:45 Dose: 1 puff Documented By: SANDIE Furosemide (Furosemide 40 Mg Tablet) 40 mg PO BID [facility]; Protocol Last Admin: 07/22/25 08:24 Dose: 40 mg Documented By: KRISTEN Gabapentin (Gabapentin 300 Mg Capsule) 300 mg PO TID [facility] Last Admin: 07/22/25 08:25 Dose: 300 mg Documented By: KRISTEN Guaifenesin (Guaifenesin 200 Mg/10 Ml 10 Ml Liquid) 10 ml PO Q6H PRN PRN Reason: Cough Lactulose (Lactulose 20 Gm/30 Ml Solution) 30 gm PO TID [facility] Last Admin: 07/22/25 08:25 Dose: 30 gm Documented By: KRISTEN Levetiracetam (Levetiracetam 500 Mg Tablet) 500 mg PO BID [facility] Last Admin: 07/22/25 08:24 Dose: 500 mg Documented By: KRISTEN Loratadine (Loratadine 10 Mg Tablet) 10 mg PO DAILY [facility] Last Admin: 07/22/25 08:25 Dose: 10 mg Documented By: KRISTEN Magnesium Hydroxide (Milk Of Magnesia 30 Ml Oral.Susp) 30 ml PO DAILY PRN PRN Reason: Constipation Melatonin (Melatonin 3 Mg Tablet) 6 mg PO BEDTIME PRN PRN Reason: Insomnia Last Admin: 07/20/25 20:25 Dose: 6 mg Documented By: PASQUALE Metoprolol Tartrate (Metoprolol Tartrate 25 Mg Tablet) 25 mg PO DAILY [facility]; Protocol Last Admin: 07/22/25 08:24 Dose: 25 mg Documented By: KRISTEN Naloxone HCl (Naloxone Hcl 0.4 Mg/Ml Vial) 0.04 mg IVPUSH Q5M PRN PRN Reason: Excessive sedation or RR < 8 Oxycodone HCl (Oxycodone Hcl Immed Release 5 Mg Tablet) 5 mg PO Q8H PRN PRN Reason: Pain, Moderate(Pain Scale 4-6) Last Admin: 07/20/25 00:29 Dose: 5 mg Documented By: ELLIOT Rifaximin (Rifaximin 550 Mg Tablet) 550 mg PO BID [facility] Last Admin: 07/22/25 08:25 Dose: 550 mg Documented By: KRISTEN Sodium Chloride (0.9 % Sodium Chloride Flush 3 Ml Syringe) 3 ml IVFLUSH QSHIFT [facility] Last Admin: 07/22/25 08:25 Dose: 3 ml Documented By: KRISTEN Spironolactone (Spironolactone 25 Mg Tablet) 12.5 mg PO DAILY [facility]; Protocol Last Admin: 07/22/25 08:24 Dose: 12.5 mg Documented By: KRISTEN Sucralfate (Sucralfate Oral Suspension 1 Gm/10 Ml Oral.Susp) 1 gm PO QIDACHS [facility] Last Admin: 07/22/25 11:59 Dose: 1 gm Documented By: KRISTEN Thiamine HCl (Thiamine Hcl 100 Mg Tablet) 100 mg PO DAILY [facility] Last Admin: 07/22/25 08:25 Dose: 100 mg Documented By: KRISTEN Tizanidine HCl (Tizanidine Hcl 4 Mg Tablet) 2 mg PO Q8H PRN PRN Reason: Muscle Spasm Labs 07/19/25 06:32 07/21/25 15:53 Labs: Laboratory Results - last 24 hr 07/21/25 15:53 Anion Gap 12 Estim Creat Clear Calc 47.7 Estimated GFR 48 Random Glucose 190 H Calcium 8.5 Magnesium 2.3 Assessment and Plan (1) GAVE (gastric antral vascular ectasia): Status: Acute (2) Anemia: Status: Acute Plan This is a 79-year-old female resident of [facility] for the last 2 years with past medical history depression/anxiety, hepatitis-C, cirrhosis, GERD, COPD secondary to history of tobacco use, chronic low back pain, bilateral hip replacements, and mobility dependent on wheelchair, history of alcohol dependence, seizure disorder on Keppra, enucleated right eye who was sent in for anemia acute on chronic anemia possibly due to 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 heme + s/p EGD 04/02/25 - showing portal hypertensive gastropathy, oozing GAVE, flat varices EGD 07/19 EGD Impressions:? * Flat varices * Portal hypertensive gastropathy (biopsy) * Oozing GAVE (APC) * Normal duodenum.?? Recommendations:?? * Can discontinue octreotide * Continue PPI - can be switched to oral * Cont carafate 10 ml QID x 14 days * Complete ceftriaxone for total of 7 days. Can be switched to PO cipro on discharge. * Avoid NSAIDs. * Outpatient follow up and repeat EGD will be arranged. 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 swelling in neck--looks symetrical CT of face no acute finding Mood continue baseline meds morbid obesity BMI 37.5 weight loss encouraged DVT prophylaxis-mechanical devices, chemoprophylaxis contraindicated due to anemia Code status-patient requests to be DNR/DNI (MOLST in system indicates the same) Quality Stroke Does the patient have a stroke diagnosis?: No VTE Prior VTE?: No VTE Risk Level:: Medical - moderate - high VTE Device Contraindication: N/A - Device Ordered VTE Drug Contraindication: Treatment Not Indicated
--- NOTE | 2025-07-22 12:34 | P.DS_ITS ---
DS: Providers Provider Date of Service: 07/22/25 Date of admission: 07/18/25 13:34 Date of discharge: 07/22/25 Primary care physician: Unknown Physician Consults: 07/18/25 15:00 Consult to Gastroenterology Routine Consulting Provider[place] [facility] Reason for consultation: anemia; h/o GAVE, cirrhosis Has provider been notified: No DS: Diagnosis Discharge Diagnosis (1) GAVE (gastric antral vascular ectasia): Status: Acute (2) Anemia: Status: Acute DS: Summary Hospital Course Hospital Course: admission hpi Chief Complaint: abnormal labs This is a 79 year old female with a history of depression/anxiety, hepatitis-C and patient completed treatment, cirrhosis, GERD, COPD secondary to history of tobacco use, and mobility dependent on wheelchair, history of alcohol dependence, seizure disorder on Keppra, enucleated right eye who was sent in from residential due to abnormal labs. Patient was noted to have anemia, in the ED H/H was 6.9/23.6. She was stool occult positive. She denies any abdominal pain. She denies any dizziness, shortness of breath or chest pain. She denies any blood in her stool, she denies vomiting blood. She says sometimes her stool is dark but nothing has changed recently. 1 unit of blood was ordered in the emergency department in the decision was made to admit her for further management. Hospital course: This is a 79-year-old female resident of [facility] for the last 2 years with past medical history depression/anxiety, hepatitis-C, cirrhosis, GERD, COPD secondary to history of tobacco use, chronic low back pain, bilateral hip replacements, and mobility dependent on wheelchair, history of alcohol dependence, seizure disorder on Keppra, enucleated right eye who was sent in for anemia acute on chronic anemia s/p EGD 04/02/25 - showing portal hypertensive gastropathy, oozing GAVE, flat varices EGD 07/19 EGD Impressions:? * Flat varices * Portal hypertensive gastropathy (biopsy) * Oozing GAVE (APC) * Normal duodenum.??Recommendations:?? * Can discontinue octreotide * Continue PPI - can be switched to oral * Cont carafate 10 ml QID x 14 days * Complete ceftriaxone for total of 7 days. Can be switched to PO cipro on discharge. * Avoid NSAIDs. 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 swelling in neck--looks symetrical CT of face no acute finding Mood continue baseline meds morbid obesity BMI 37.5 weight loss encouraged Quality: Safe Use of Opioids Does Pt have an Active Cancer Diagnosis on the Problem List?: No Quality: Stroke Does the patient have a stroke diagnosis?: No Physical Exam Vital Signs: Vital Signs: Last Vital Signs Temp 97.1 F 07/22/25 11:19 Pulse 57 07/22/25 11:19 Resp 18 07/22/25 11:19 BP 126/60 07/22/25 11:19 Pulse Ox 96 07/22/25 11:19 O2 Del Method Nasal Cannula 07/22/25 11:19 O2 Flow Rate 3 07/22/25 11:19 Oxygen Flow Rate 2 07/18/25 11:16 BMI result Body Mass Index 37.4 Const: Other: General: AO X 3, no acute distress Resp: CTA bilateral HEENT: face looks symetrical CVS: S1,S2,RRR GI: +BS, NT, no distention Skin: No rash Neuro: motor grossly intact Psych: appropriate affect DS: Data Data Completed and Pending Completed studies during hospitalization [Text1]: Procedures Assistance with Respiratory Ventilation, Less than 24 Consecutive Hours, Continuous Positive Airway Pressure (06/28/23) Control Bleeding in Gastrointestinal Tract, Via Natural or Artificial Opening Endoscopic (03/31/25) Drainage of Spinal Canal, Percutaneous Approach, Diagnostic (05/08/25) Excision of Stomach, Pylorus, Via Natural or Artificial Opening Endoscopic, Diagnostic (03/31/25) Insertion of Infusion Device into Right Basilic Vein, Percutaneous Approach (03/31/25) Introduction of Vasopressor into Peripheral Vein, Percutaneous Approach (05/08/25) Transfusion of Nonautologous Red Blood Cells into Peripheral Vein, Percutaneous Approach (03/31/25) Labs on day of discharge: Laboratory Results - last 24 hr 07/21/25 15:53 Sodium 144 Potassium 4.3 Chloride 105 Carbon Dioxide 31 H Anion Gap 12 BUN 34 H Creatinine 1.11 Estim Creat Clear Calc 47.7 Estimated GFR 48 Random Glucose 190 H Calcium 8.5 Magnesium 2.3 Discharge Plan Discharge Anticipated Discharge Date/Time: 07/22/25 12:12 Patient Disposition: Xfer SNF Discharge Diagnosis: Anemia Referrals: Physician,Unknown J [Primary Care Provider, Medical] - 1 Week Discharge Medications: Continued multivitamin Tablet 1 tab PO DAILY cetirizine 10 mg Tablet 10 mg PO DAILY levetiracetam [Keppra] 500 mg Tablet 500 mg PO BID thiamine HCl (vitamin B1) 100 mg Tablet 100 mg PO DAILY alprazolam [Xanax] 0.25 mg Tablet 0.25 mg PO BID magnesium hydroxide [Milk of Magnesia] 400 mg/5 mL Suspension 30 ml PO DAILY PRN (Reason: Constipation) bisacodyl 10 mg Suppository 10 mg [place] DAILY PRN (Reason: Constipation) Rx Instructions: no BM for 8 hours after MOM pantoprazole 40 mg Tablet,Delayed Release (Dr/Ec) 40 mg PO DAILY@0630 [place] Enema 19-7 gram/118 mL Enema 118 ml [place] DAILY PRN (Reason: Constipation) Rx Instructions: no BM for 8 hours after bisacodyl supp gabapentin 300 mg Capsule 300 mg PO TID fluticasone propionate [Flonase Allergy Relief] 50 mcg/actuation [place],Suspension 1 spray INTRANASAL BID Rx Instructions: administer into each nostril metoprolol tartrate 25 mg Tablet 25 mg PO DAILY lactulose 10 gram/15 mL Solution 45 ml PO TID tizanidine 2 mg Tablet 2 mg PO Q8H PRN (Reason: Muscle Spasm) furosemide 40 mg tablet 40 mg PO BID benzonatate 200 mg Capsule 200 mg PO TID albuterol sulfate 90 mcg/actuation Hfa Aerosol Inhaler 1 inh INHALATION BID oxycodone 5 mg tablet 5 mg PO Q8H PRN (Reason: Pain) Xifaxan 550 mg Tablet 550 mg PO BID 90 Days Qty: 180 0RF guaifenesin [Camryn-Tussin] 100 mg/5 mL Liquid 200 mg PO Q6H PRN (Reason: Cough) spironolactone 25 mg Tablet 12.5 mg PO DAILY escitalopram oxalate 10 mg Tablet 10 mg PO DAILY cyclosporine [Restasis] 0.05 % Dropperette 1 drp ophthalmic-Left BID Trelegy Ellipta 200-62.5-25 mcg blister with device 1 ea inhalation DAILY sucralfate 1 gram Tablet 1 g PO QIDACHS Qty: 120 0RF Diet: Advance to usual diet Activity on Discharge: As tolerated Stand Alone Forms: Patient Portal Discharge page Print Language: Mongolian Care Plan Goals: recovery from anemia Health Concerns: recovery from anemia from GAVE Plan of Treatment: continue karafate as order continue ceftin as order avoid NSAID Follow up with Dr. Russell for repeat EGD this will be arranged through her office Assessment: see
[2025-07-22 13:03] LABS: Hematocrit 27.5 % (37.0-47.0); Hemoglobin 8.1 g/dl (12.0-16.0); Mean Corpuscular HGB Conc 29.5 g/dl (31.0-35.0); Mean Corpuscular Hemoglobin 24.3 pg (27.0-33.0); Mean Corpuscular Volume 82.3 fL (80.0-98.0); NRBC Abs Auto 0.000 X10*3/uL (0.0-0.012); NRBC Pct Auto 0.0 /100WBC (0.0-0.2); Red Blood Count 3.34 X10*6/uL (4.20-5.50); White Blood Count 4.5 X10*3/uL (4.8-10.8)
[2025-07-22 13:06] LABS: Platelet Count 56 X10*3/uL (160-400)
--- NOTE | 2025-07-22 14:00 | MHC.CM.PN ---
Second IMM 07/22/25, Pt has been medically cleared to DC, she will go back to [facility] via BLS. Pt. is A X O X 3, CM call her son Christian at her request to inform him of transfer.
[2025-07-22 16:00] VITALS: BP 125/65; PULSE 65; RESP 18; TEMP 36.2; O2SAT 100
--- NOTE | 2025-07-31 16:43 | P.CDIM_ITS ---
PROVIDER RESPONSE TEXT: To clarify, the appropriate diagnosis supported by the clinical indicators: Acute blood loss anemia QUERY TEXT: PHYSICIAN'S DOCUMENTATION REQUEST Date of Query: 07/22/2025 10:40 AM EDT Patient Name: Sarai Mederos Admit Date: 07/18/2025 Dear Joseph Sawant MD, A review of the medical record indicates additional documentation may be needed. Please review below and update the documentation accordingly. Clinical Indicators: H&H 07/18/25: 6.9/23.6 1 unit blood ordered in ED HGB 07/19/25: 7.5/HCT 25.2 acute on chronic anemia is noted in the progress note 07/19/25 EGD 07/19/25: oozing GAVE Based on the above, could you clarify which of the following is the most likely type of anemia you are evaluating, treating, and/or monitoring? Acute blood loss anemia Acute blood loss anemia with baseline chronic anemia (specify type) Anemia of chronic disease indicate if neoplastic disease, CKD, or other Chronic iron deficiency anemia due to blood loss Vitamin B12 deficiency anemia indicate etiology, such as intrinsic factor deficiency, malabsorption, transcobalamin II deficiency, dietary, etc Folate deficiency anemia indicate etiology, such as dietary, drug-induced, etc Protein deficiency anemia Other (explain) Clinically unable to determine (explain) Thank you, Tory Bird RN Use of terms such as suspected, likely, concern for, or probable (associated with a specific diagnosis that is being evaluated, monitored, or treated as if it exists) are acceptable and can be coded in the inpatient setting, when documented at the time of discharge. Please use your independent medical judgment in providing your response. THIS QUERY IS PART OF THE PERMANENT MEDICAL RECORD
== END 2025-07-22 17:00 | disposition skilled nursing facility (03) | DRG 378 ==
LOC: HO.ED 13:39 → HO.EDOVER 13:46 → HO.IMC 19:27
PROVIDERS: Internal Medicine; Admitting Provider Physician Assistant Medical; Emergency Provider Emergency Medicine; PCP Internal Medicine; Visit Provider Internal Medicine
PROC: 0W3P8ZZ Control Bleeding in Gastrointestinal Tract, Via Natural or Artificial Opening Endoscopic (ICD-10-PCS; principal; 2025-07-19 14:50)
DX: K31.811 Angiodysplasia of stomach and duodenum with bleeding (principal); D62 Acute posthemorrhagic anemia; K76.6 Portal hypertension; I85.10 Secondary esophageal varices without bleeding; F10.21 Alcohol dependence, in remission; G40.909 Epilepsy, unspecified, not intractable, without status epilepticus; Z86.19 Personal history of other infectious and parasitic diseases; Z66 Do not resuscitate; I10 Essential (primary) hypertension; J44.9 Chronic obstructive pulmonary disease, unspecified; I86.8 Varicose veins of other specified sites; K31.89 Other diseases of stomach and duodenum; R22.1 Localized swelling, mass and lump, neck; G89.29 Other chronic pain; D69.6 Thrombocytopenia, unspecified; E66.01 Morbid (severe) obesity due to excess calories; F39 Unspecified mood [affective] disorder; Z99.3 Dependence on wheelchair; Z68.37 Body mass index [BMI] 37.0-37.9, adult; Z71.3 Dietary counseling and surveillance; Z87.891 Personal history of nicotine dependence; Z79.899 Other long term (current) drug therapy
CPT/HCPCS: 36415; 70486; 80048; 80053; 82140; 82272; 82803; 82947; 83735; 85025; 85027; 86850; 86900; 86901; 86923; 94640; 99285; C1889; J0696; J2354; J2470; J2704; P9016

== ENCOUNTER 2025-07-18 13:34 | Outpatient (BNV) | payer MEDICARE, MEDICAID, SELFPAY | END 2025-07-20 16:20 | PROVIDERS: Admitting Provider Physician Assistant Medical; Emergency Provider Emergency Medicine; Visit Provider Specialist | DX: R51.9 Headache, unspecified (principal) | CPT/HCPCS: 70486 ==

== ENCOUNTER → 2025-07-18 13:34 | Outpatient (BNV) | payer MEDICARE, MEDICAID, SELFPAY | PROVIDERS: Admitting Provider Physician Assistant Medical; Emergency Provider Emergency Medicine; Visit Provider Physician Assistant Medical | DX: K31.819 Angiodysplasia of stomach and duodenum without bleeding (principal); D64.9 Anemia, unspecified | CPT/HCPCS: 99223; 99232 ==

== ENCOUNTER → 2025-07-18 13:34 | Outpatient (BNV) | payer MEDICARE, MEDICAID, SELFPAY | PROVIDERS: Admitting Provider Physician Assistant Medical; Emergency Provider Emergency Medicine; Visit Provider Internal Medicine | DX: D64.9 Anemia, unspecified (principal); K74.60 Unspecified cirrhosis of liver; I85.00 Esophageal varices without bleeding; K76.6 Portal hypertension; K31.89 Other diseases of stomach and duodenum; K31.811 Angiodysplasia of stomach and duodenum with bleeding | CPT/HCPCS: 43255; 99223 ==

== ENCOUNTER 2025-08-21 10:34 | Emergency (ER) | payer MEDICARE, MEDICAID, SELFPAY ==
[2025-08-21] VITALS (16 sets, daily range): BP systolic 95–137; BP diastolic 46–63; PULSE 61–86; RESP 16–18; TEMP 35.7–37; O2SAT 93–100; BMI 38.1
[2025-08-21 11:23] LABS: MANUAL DIFF FLAG NO
[2025-08-21 11:29] LABS: Hematocrit 22.8 % (37.0-47.0); Imm Gran Abs Auto 0.01 X10*3/uL (0.00-0.03); Imm Gran Pct Auto 0.3 % (0.0-0.4); Lymphocytes Absolute Auto 0.5 X10*3/uL (1.2-4.9); Mean Corpuscular HGB Conc 28.1 g/dl (31.0-35.0); Mean Corpuscular Hemoglobin 22.8 pg (27.0-33.0); Mean Corpuscular Volume 81.1 fL (80.0-98.0); NRBC Abs Auto 0.020 X10*3/uL (0.0-0.012); NRBC Pct Auto 0.5 /100WBC (0.0-0.2); Red Blood Count 2.81 X10*6/uL (4.20-5.50); Venous Blood Gas Refer to POC result; White Blood Count 4.0 X10*3/uL (4.8-10.8)
[2025-08-21 11:30] LABS: VBG HCO3 39 mmol/L (22-26)
[2025-08-21 11:34] LABS: INTERNATIONAL NORM RATIO 1.2 (0.9-1.1); Prothrombin Time 13.2 SEC (10.9-12.4)
[2025-08-21 11:37] LABS: Hemoglobin 6.4 g/dl (12.0-16.0); Partial Thromboplastin Time 30.4 SEC (26.7-34.1); Platelet Count 61 X10*3/uL (160-400)
--- NOTE | 2025-08-21 11:40 | ED.GENADULT ---
HPI - General Adult General Chief complaint: Recheck/Abnormal Lab/Rx Stated complaint: ABNORMAL LABS HGB 6, ASYMPT Time Seen by Provider: 08/21/25 11:01 History of Present Illness ED Provider: Mini ANDRADE narrative: The patient is a 79-year-old woman who lives at a local [facility]. She says that she has live therefore a couple of months. She says that she went there initially to do rehab because she has not able to walk. She says that after 3 weeks they stopped doing rehab because of lack of progress. She has continued to live at the [facility] since then. The patient apparently has a history of liver disease and varices and a history of recurrent episodes anemia. The patient was sent to the emergency room apparently because of outpatient blood work that was done at [facility]. I am not sure when this laboratory work was drawn. Her hemoglobin was 6.2. The patient was sent to the emergency room because of this low hemoglobin. There was no report of any active bleeding or black or bloody stools. The patient is not on anticoagulation. The patient was last hospitalized 1 month ago for the same issue. At that time her stool was heme-positive. She had an upper endoscopy on July 19. This showed gastric antral vascular ectasia (GAVE, AKA watermelon stomach), there was apparently some oozing of blood and there was argon plasma coagulation applied for hemostasis. Other findings were flat varices, portal hypertensive gastropathy, and a normal duodenum. Recommendations were to continue proton pump inhibitor, continue sucralfate. She was discharged on July 22. The patient had previously been in the emergency room about a month before that for a similar anemia and was transfused 2 units of packed red blood cells in the emergency department and discharged. She was not hospitalized at that time. On this occasion the patient has no symptoms aside from feeling fatigued. No headache, chest pain, pleuritic pain, shortness of breath, cough or sputum, abdominal pain, nausea or vomiting. She says she last had a bowel movement yesterday. She does not know what it looked like. No fever, sweats, chills. Related Data Home Medications ?Medication ?Instructions ?Recorded ?Confirmed alprazolam 0.25 mg tablet (Xanax) 0.25 mg PO BID Anxiety 06/28/23 07/18/25 bisacodyl 10 mg rectal suppository 10 mg FL DAILY PRN Constipation 06/28/23 07/18/25 cetirizine 10 mg tablet 10 mg PO DAILY 06/28/23 07/18/25 fluticasone propionate 50 1 spray intranasal BID 06/28/23 07/18/25 mcg/actuation nasal spray,suspension (Flonase Allergy Relief) gabapentin 300 mg capsule 300 mg PO TID 06/28/23 07/18/25 lactulose 10 gram/15 mL oral 45 ml PO TID 06/28/23 07/18/25 solution levetiracetam 500 mg tablet 500 mg PO BID 06/28/23 07/18/25 (Keppra) magnesium hydroxide 400 mg/5 mL 30 ml PO DAILY PRN Constipation 06/28/23 07/18/25 oral suspension (Milk of Magnesia) metoprolol tartrate 25 mg tablet 25 mg PO DAILY 06/28/23 07/18/25 multivitamin 1 tab PO DAILY 06/28/23 07/18/25 pantoprazole 40 mg tablet,delayed 40 mg PO DAILY@0630 06/28/23 07/18/25 release sodium phosphates 19 gram-7 118 ml FL DAILY PRN Constipation 06/28/23 07/18/25 gram/118 mL enema (Fleet Enema) thiamine HCl (vitamin B1) 100 mg 100 mg PO DAILY 06/28/23 07/18/25 tablet tizanidine 2 mg tablet 2 mg PO Q8H PRN Muscle Spasm 06/28/23 07/18/25 cyclosporine 0.05 % eye drops in a 1 drp ophthalmic-Left BID 04/01/25 07/18/25 dropperette (Restasis) escitalopram oxalate 10 mg tablet 10 mg PO DAILY 04/01/25 07/18/25 fluticasone fur. 200 mcg-umeclid 1 ea inhalation DAILY 04/01/25 07/18/25 62.5 mcg-vilant 25 mcg inhalat.powder (Trelegy Ellipta) guaifenesin 100 mg/5 mL oral 200 mg PO Q6H PRN Cough 04/01/25 07/18/25 liquid (Camryn-Tussin) spironolactone 25 mg tablet 12.5 mg PO DAILY 04/01/25 07/18/25 albuterol sulfate 90 mcg/actuation 1 inh inhalation BID 05/08/25 07/18/25 aerosol inhaler benzonatate 200 mg capsule 200 mg PO TID 05/08/25 07/18/25 furosemide 40 mg tablet 40 mg PO BID 05/08/25 07/18/25 oxycodone 5 mg tablet 5 mg PO Q8H PRN Pain 05/08/25 07/18/25 Previous Rx's ?Medication ?Instructions ?Recorded sucralfate 1 gram tablet 1 g PO QIDACHS #120 tabs 04/04/25 rifaximin 550 mg tablet (Xifaxan) 550 mg PO BID 90 days #180 tabs 05/11/25 cefuroxime axetil 500 mg tablet 500 mg PO BID 10 days #20 tabs 07/22/25 sucralfate 100 mg/mL oral 1 g (10 mL) PO QIDACHS 10 days 07/22/25 suspension #420 mL Allergies Allergy/AdvReac Type Severity Reaction Status Date / Time acetaminophen (From Tylenol) Allergy Unknown Verified 08/21/25 10:56 amoxicillin Allergy Unknown Verified 08/21/25 10:56 codeine Allergy Unknown Verified 08/21/25 10:56 tuberculin, purified protein Allergy Unknown Verified 08/21/25 10:56 deriva PMFSH Past Medical History Medical History Hypercapnia COPD (chronic obstructive pulmonary disease) Hepatitis C test positive Cirrhosis of liver without ascites Serum ammonia increased Cirrhosis FH: cholecystectomy Hepatitis C Splenomegaly Type 2 diabetes mellitus Morbid obesity CHF (congestive heart failure) Surgical History H/O enucleation of right eyeball Hx of appendectomy History of hip replacement Social History Social History Household Members: None Housing: [facility] Housing Other:: [facility] Do you presently have visiting nurse or other home services: Yes Alcohol intake: former Patient Tobacco Use Status: Former Tobacco user Tobacco use type: Cigarette Cigarette Packs Per Day: 1 Cigarettes Per Day: 20.0 Years Smoked: 30 Smoked in Last 30 Days: No Second Hand Smoke Exposure: No Use of substances other than those prescribed or required for medical reasons: No Advance Directives: Yes Advance Directives on File: Yes Advance Directives Date on File: 08/29/23 Do you have a plan to hurt others: No Plan service: No Physical Exam ED Vital Signs: Vital Signs - 24 hr 08/21/25 10:53 08/21/25 12:28 08/21/25 12:41 Temperature 98.1 F 98.6 F 98.6 F Pulse Rate 74 64 64 Respiratory Rate 16 18 18 Blood Pressure 114/58 L 95/52 L 106/63 Pulse Oximetry 93 99 Oxygen Delivery Method Room Air Room Air Oxygen Flow Rate 08/21/25 13:00 08/21/25 13:21 08/21/25 14:42 Temperature 98.1 F 98.1 F 98.3 F Pulse Rate 61 64 82 Respiratory Rate 16 16 16 Blood Pressure 108/53 L 110/54 L 118/46 L Pulse Oximetry 99 Oxygen Delivery Method Nasal Cannula Oxygen Flow Rate 2 08/21/25 14:43 08/21/25 16:00 08/21/25 16:00 Temperature 98.3 F 96.2 F L 96.8 F Pulse Rate 82 64 63 Respiratory Rate 16 16 16 Blood Pressure 118/46 L 128/58 L 128/58 L Pulse Oximetry 100 Oxygen Delivery Method Room Air Oxygen Flow Rate 08/21/25 16:15 08/21/25 16:30 08/21/25 17:30 Temperature 98.1 F 98.1 F Pulse Rate 76 86 67 Respiratory Rate 16 16 16 Blood Pressure 137/55 L 129/48 L 123/51 L Pulse Oximetry Oxygen Delivery Method Oxygen Flow Rate 08/21/25 18:01 08/21/25 19:13 08/21/25 20:16 Temperature 97.8 F 98 F 97.8 F Pulse Rate 69 65 70 Respiratory Rate 16 16 16 Blood Pressure 116/50 L 127/55 L 115/51 L Pulse Oximetry 98 96 Oxygen Delivery Method Room Air Room Air Oxygen Flow Rate 08/21/25 21:29 Temperature 98 F Pulse Rate 67 Respiratory Rate 17 Blood Pressure 122/59 L Pulse Oximetry 97 Oxygen Delivery Method Oxygen Flow Rate BMI result Body Mass Index 38.1 Medical Decision Making Medical Decision Making MDM Narrative: The patient is a 79-year-old woman who has a history of cirrhosis and known varices. She also has a history of ?watermelon stomach?, also known as gastric antral vascular ectasia (GAVE). She had upper endoscopy 1 month ago with some coagulation of her oozing vascular abnormality. She presents with nonspecific complaints of fatigue and anemia. Her stool is heme-positive but it is not melenic. I suspect that she probably has chronic slow GI bleeds. She is hemodynamically stable. She was given 2 units of blood. I discussed the case with Dr. Russell of Gastroenterology and we agreed that the patient is sufficiently stable that she does not require hospitalization today. The patient is apparently scheduled for repeat endoscopy and a couple of weeks. She should keep her appointments. She should return to the emergency room if there is more signs of active bleeding. Lab Data 08/21/25 11:17 08/21/25 11:17 Labs: Lab Results 08/21/25 08/21/25 08/21/25 Range/Units 11:17 11:26 11:58 WBC 4.0 L (4.8-10.8) X10*3/uL RBC 2.81 L (4.20-5.50) X10*6/uL Hgb 6.4 L* D (12.0-16.0) g/dl Hct 22.8 L (37.0-47.0) % MCV 81.1 (80.0-98.0) fL MCH 22.8 L (27.0-33.0) pg MCHC 28.1 L (31.0-35.0) g/dl RDW 16.7 H (11.0-16.0) % Plt Count 61 L (160-400) X10*3/uL MPV 11.5 (9.4-12.3) fL Immature Gran % (Auto) 0.3 (0.0-0.4) % Neut % (Auto) 76.2 H (45-73) % Lymph % (Auto) 12.4 L (20-40) % Door % (Auto) 10.6 (2-11) % Eos % (Auto) 0.0 (0-4) % Baso % (Auto) 0.5 (0-2) % Lymph # (Auto) 0.5 L (1.2-4.9) X10*3/uL Door # (Auto) 0.4 (0.1-1.2) X10*3/uL Eos # (Auto) 0.0 (0.0-0.4) X10*3/uL Baso # (Auto) 0.0 (0.0-0.2) X10*3/uL Abs Immat Gran (auto) 0.01 (0.00-0.03) X10*3/uL Absolute Neuts (auto) 3.0 (2.0-8.3) x10*3/uL Absolute Nucleated RBC 0.020 H (0.0-0.012) X10*3/uL Nucleated RBC % (auto) 0.5 H (0.0-0.2) /100WBC PT 13.2 H (10.9-12.4) SEC INR 1.2 H (0.9-1.1) APTT 30.4 (26.7-34.1) SEC VBG pH 7.45 H (7.32-7.43) VBG pCO2 55 mmHg VBG pO2 64 mmHg VBG HCO3 39 H (22-26) mmol/L VBG O2 Saturation TNP VBG Base Excess 13.8 mmol/L Sodium 144 (135-145) mmol/L Potassium 3.9 (3.3-5.1) mmol/L Chloride 104 (96-108) mmol/L Carbon Dioxide 37 H (22-29) mmol/L Anion Gap 7 L (12-20) BUN 20 H (9-16) mg/dL Creatinine 1.06 (0.5-1.4) mg/dL Estim Creat Clear Calc 50.5 Estimated GFR 50 Random Glucose 262 H (60-115) mg/dL Calcium 8.6 (8.4-10.2) mg/dL Total Bilirubin 0.8 (0.0-1.0) mg/dL Direct Bilirubin 0.4 (0.0-0.5) mg/dL AST 24 (5-31) U/L ALT < 6 (0-31) U/L Alkaline Phosphatase 58 (39-117) U/L Total Protein 5.7 L (6.5-8.0) g/dL Albumin 2.9 L (3.5-5.0) g/dL Stool Occult Blood POSITIVE (NEGATIVE) Blood Type A Positive Antibody Screen NEGATIVE Crossmatch See Detail Discharge Plan Discharge Clinical Impression: Anemia, Gastric antral vascular ectasia (watermelon stomach) Patient Disposition: Xfer [facility] Additional Instructions: You have received 2 units of red blood cells today. I believe you were experiencing some very slow ongoing bleeding but you do not seem to have any brisk bleeding and therefore you have not been hospitalized today. Your currently scheduled to follow up with Dr. Russell for a repeat endoscopy in a few weeks. Please plan on keeping this appointment. Continue your other medications. Return to the emergency room if significantly worse. Prescriptions: No Action multivitamin Tablet 1 tab PO DAILY cetirizine 10 mg Tablet 10 mg PO DAILY levetiracetam [Keppra] 500 mg Tablet 500 mg PO BID thiamine HCl (vitamin B1) 100 mg Tablet 100 mg PO DAILY alprazolam [Xanax] 0.25 mg Tablet 0.25 mg PO BID magnesium hydroxide [Milk of Magnesia] 400 mg/5 mL Suspension 30 ml PO DAILY PRN (Reason: Constipation) bisacodyl 10 mg Suppository 10 mg FL DAILY PRN (Reason: Constipation) Rx Instructions: no BM for 8 hours after MOM pantoprazole 40 mg Tablet,Delayed Release (Dr/Ec) 40 mg PO DAILY@0630 Fleet Enema 19-7 gram/118 mL Enema 118 ml FL DAILY PRN (Reason: Constipation) Rx Instructions: no BM for 8 hours after bisacodyl supp gabapentin 300 mg Capsule 300 mg PO TID fluticasone propionate [Flonase Allergy Relief] 50 mcg/actuation Cameron,Suspension 1 spray INTRANASAL BID Rx Instructions: administer into each nostril metoprolol tartrate 25 mg Tablet 25 mg PO DAILY lactulose 10 gram/15 mL Solution 45 ml PO TID tizanidine 2 mg Tablet 2 mg PO Q8H PRN (Reason: Muscle Spasm) furosemide 40 mg tablet 40 mg PO BID benzonatate 200 mg Capsule 200 mg PO TID albuterol sulfate 90 mcg/actuation Hfa Aerosol Inhaler 1 inh INHALATION BID oxycodone 5 mg tablet 5 mg PO Q8H PRN (Reason: Pain) Xifaxan 550 mg Tablet 550 mg PO BID 90 Days Qty: 180 0RF guaifenesin [Camryn-Tussin] 100 mg/5 mL Liquid 200 mg PO Q6H PRN (Reason: Cough) spironolactone 25 mg Tablet 12.5 mg PO DAILY escitalopram oxalate 10 mg Tablet 10 mg PO DAILY cyclosporine [Restasis] 0.05 % Dropperette 1 drp ophthalmic-Left BID Trelegy Ellipta 200-62.5-25 mcg blister with device 1 ea inhalation DAILY sucralfate 1 gram Tablet 1 g PO QIDACHS Qty: 120 0RF cefuroxime axetil 500 mg tablet 500 mg PO BID 10 Days Qty: 20 0RF sucralfate 100 mg/mL Suspension 1 g PO QIDACHS 10 Days Qty: 420 0RF Referrals: Melissa Celaya MD [Primary Care Provider, Medical] Rosa Russell MD [Physician, Gastroenterology] Interventions: ED Discharge Assessment Last Done: 08/21/25 21:29 Discharge Date/Time: 08/21/25 21:31 Print Language: Kiswahili
[2025-08-21 11:52] LABS: Alanine Aminotransferase < 6 U/L (0-31); Albumin Level 2.9 g/dL (3.5-5.0); Alkaline Phosphatase 58 U/L (39-117); Anion Gap 7 (12-20); Aspartate Amino Transferase 24 U/L (5-31); Blood Urea Nitrogen 20 mg/dL (9-16); Calcium 8.6 mg/dL (8.4-10.2); Carbon Dioxide 37 mmol/L (22-29); Chloride 104 mmol/L (96-108); Creatinine Clr Calc Pharmacy 50.5; Estimated Glomerular Filt Rate 50; Potassium 3.9 mmol/L (3.3-5.1); Sodium 144 mmol/L (135-145); Total Protein 5.7 g/dL (6.5-8.0)
[2025-08-21 12:06] LABS: OBS Int Ctl Valid YES; OBS1 POSITIVE (NEGATIVE)
--- OUTSIDE RECORDS SUMMARY | 2025-08-21 14:50 | XMS_ITS | Clinical Summary ---
Author Organization [facility] Address [address] [place] [address] Care Team Providers Care Diesel Maintenance Technician Name Role Phone Braulio Brooks Primary Care Provider [phone] Source Comments PLEASE NOTE, if this patient is a minor, it may be UNLAWFUL to discuss sensitive information that is contained in these records (such as FAMILY PLANNING, MENTAL HEALTH or SUBSTANCE ABUSE) with the minor patient's parent or other person without the patient's specific authorization.[facility] Allergies No known active allergies Medications Miscellaneous Medical Supply miscIndications :Arthritis of both knees by miscellaneous route 2 (two) times daily. Dx: OA of bilateral knees. Hinged knee braces. Disp#2. No refills. 1 Each 0 5 Active miscellaneous medical supply miscIndications :Localized edema by miscellaneous route as needed (edema) Compression socks; Knee level; 20-30 mmHg; R60.0 Localized edema 2 Each 1 9 Active miscellaneous medical supply miscIndications :COPD exacerbation,Ed bud, peripheral by miscellaneous route once daily weigh 1 Each 9 Active miscellaneous medical supply miscIndications :Abnormal CBC,Fall from bed, subsequent encounter,Press ure injury of left lower back, stage 1,PND (paroxysmal nocturnal dyspnea) by miscellaneous route as needed (sleep/rest) W06.XXXD Fall from bed; J44.9 ASTH/COPD; L89.141 Pressure sore; R06.00 PND; Hospital bed x1 1 Each 9 Active miscellaneous medical supply miscIndications :Edema, peripheral,Fall from bed, subsequent encounter,Asthm a with COPD,Pressure injury of left lower back, stage 1,PND (paroxysmal nocturnal dyspnea) by miscellaneous route as needed (sleep/rest) W06.XXXD Fall from bed; J44.9 ASTH/COPD; L89.141 Pressure sore; R06.00 PND; Air mattress x1 1 Each 9 Active disposable glovesIndicatio ns:Urinary incontinence, unspecified type Use 4x daily when cleaning urine soaked clothing 120 Each 5 0 Active miscellaneous medical supply miscIndications :Urinary incontinence, unspecified type by miscellaneous route 4 (four) times daily BARRIER CREAM 2 Each 11 0 Active miscellaneous medical supply miscIndications :Urinary incontinence, unspecified type,Stress bladder incontinence, female,Function al incontinence,Ar thritis of both knees by miscellaneous route as needed (bowel movement or urination) Bedside Commode; lifetime use; Ht 5' 2'', Wt 155 lb 1 Each 0 Active blood sugar diagnostic (ONETOUCH ULTRA BLUE TEST STRIP) stripsIndicatio ns:Type 2 diabetes mellitus without complication, without long-term current use of insulin Check glucose twice daily 100 Each 5 1 Active blood-glucose meter (ONETOUCH ULTRA2 METER) monitoring kitIndications: Type 2 diabetes mellitus without complication, without long-term current use of insulin as needed for blood glucose monitoring Check glucose twice daily 1 Each 1 Active compr.stocking, knee,long,small Indications:Loc alized swelling of both lower legs Apply to bilateral legs daily, remove at night 10-15mmHg x99 years 3 Each 1 1 Active miscellaneous medical supply miscIndications :Localized swelling of both lower legs by miscellaneous route once daily Scale to be used daily to check weight 1 Each 1 Active miscellaneous medical supply miscIndications :Dependent on walker for ambulation,Impa ired ambulation,[employer] mahamed pain of both knees by miscellaneous route as needed (ambulation) Z99.89 Dependent on walker for ambulation; R26.2 Impaired ambulation; Rolator x1 1 Each 1 Active lancing device with lancets (ONETOUCH DELICA PLUS LANC DEV) kitIndications: Type 2 diabetes mellitus without complication, without long-term current use of insulin 1 Each by miscellaneous route 2 (two) times daily 1 Kit 1 1 Active lancing device misc 1 Device by miscellaneous route once daily 1 Each 1 1 Active lancets (ONETOUCH DELICA PLUS LANCET) 30 gaugeIndication s:Type 2 diabetes mellitus without complication, without long-term current use of insulin Check glucose twice daily 100 Each 2 1 Active miscellaneous medical supply miscIndications :Chronic pain of both knees,Closed fracture of both hips with routine healing, subsequent encounter,Diffi culty in walking by miscellaneous route once daily Gait belt to be used daily x99 years 1 Each 2 Active miscellaneous medical supply miscIndications :Chronic pain of both knees,Closed fracture of both hips with routine healing, subsequent encounter,Diffi culty in walking by miscellaneous route once daily Versa frame for toilet to be used daily x99 years 1 Each 2 Active nicotine (NICODERM CQ) 14 mg/24 hr patchIndication s:Encounter for smoking cessation counseling Place 1 Patch onto the skin once daily (every 24 hours) 7 Patch 2 Active miscellaneous medical supply miscIndications :Asthma with COPD by miscellaneous route once daily Nebulizer x 99 years. 1 Each 2 Active miscellaneous medical supply miscIndications :Impaired ambulation,Fall from bed, subsequent encounter by miscellaneous route once daily Please dispense electric wheelchair for pain x 99 years 1 Each 2 Active clotrimazole (LOTRIMIN) 1 % creamIndication s:Dermatitis Apply topically 2 (two) times daily For back 45 g 2 2 Active hydrocortisone 1 % creamIndication s:Fungal rash of trunk Apply topically 2 (two) times daily 30 g 2 2 Active nicotine (NICODERM CQ) 7 mg/24 hr patchIndication s:Encounter for smoking cessation counseling APPLY 1 PATCH TOPICALLY TO THE SKIN EVERY 24 HOURS 14 Patch 1 3 Active albuterol HFA 90 mcg/actuation inhalerIndicati ons:Asthma with COPD INHALE 2 PUFFS INTO THE LUNGS EVERY 4 TO 6 HOURS NEEDED FOR SHORTNESS OF BREATH OR WHEEZING 18 g 1 3 Active ALPRAZolam (XANAX) 0.5 mg tablet Take 1 Tablet by mouth 2 (two) times daily as needed for sleep 60 Tablet 1 3 Active oxyCODONE (ROXICODONE) 5 mg tablet Take 1 Tablet by mouth every 6 (six) hours as needed for pain 30 Tablet 3 Active MISCELLANEOUS MEDICAL SUPPLY MISCIndications :Asthma with COPD,Heart failure with preserved ejection fraction, unspecified HF chronicity by miscellaneous route daily Portable oxygen supplies x99 years 99 Each 11 3 Active MISCELLANEOUS MEDICAL SUPPLY MISC by miscellaneous route 6 (six) times daily Large disposable gloves 200 Each 3 Active MISCELLANEOUS MEDICAL SUPPLY MISCIndications :Urinary incontinence, unspecified type by miscellaneous route 4 (four) times daily Absorbent bed pad x99 years 200 Each 3 Active DULoxetine (CYMBALTA) [address] capsuleIndicati ons:Compression fracture of L3 vertebra, sequela,Kirk mike fracture of T12 vertebra, sequela Take 1 Capsule by mouth once daily 90 Capsule 1 3 Active escitalopram (LEXAPRO) 20 mg tablet Take 1 Tablet by mouth once daily 90 Tablet 1 3 Active folic acid (FOLVITE) 1 mg tablet Take 1 Tablet by mouth once daily 90 Tablet 1 3 Active gabapentin (NEURONTIN) 300 mg capsuleIndicati ons:Chronic pain of both hips Take 1 Capsule by mouth 2 (two) times daily 180 Capsule 3 Active hydrocortisone (PROCTOCORT) 1 % rectal creamIndication s:C. difficile diarrhea Place rectally 2 (two) times daily 28 g 1 3 Active diclofenac sodium (VOLTAREN) 1 % gelIndications: Chronic pain of both knees Apply topically 2 (two) times daily 100 g 3 3 Active hydrOXYzine HCL (ATARAX) 25 mg tablet Take 2 Tablets by mouth 2 (two) times daily as needed for itching 60 Tablet 3 3 Active ipratropium-alb uteroL (DUONEB) 0.5 mg-3 mg(2.5 mg base)/3 mL nebulizer solutionIndicat ions:Asthma with COPD Take 3 mL by nebulization 3 (three) times daily as needed for wheezing 1080 mL 3 3 Active levETIRAcetam (KEPPRA) 500 mg tablet Take 1 Tablet by mouth 2 (two) times daily 180 Tablet 1 3 Active lidocaine (ASPERCREME, LIDOCAINE,) 4 % ptmd Apply 2 Patches topically once daily 60 Patch 2 3 Active naloxone (NARCAN) 4 mg/actuation nasal spray Place 1 [place] into the nostril(s) as needed for opioid reversal (Overdose) 1 Each 3 Active rifAXIMin (XIFAXAN) 200 mg tablet Take 1 Tablet by mouth 2 (two) times daily 180 Tablet 1 3 Active traZODone (DESYREL) 50 mg tabletIndicatio ns:Acute adjustment disorder Take 1 Tablet by mouth nightly at bedtime 90 Tablet 1 3 Active TRELEGY ELLIPTA 200-62.5-25 mcg dsdvIndications :Asthma with COPD Inhale 1 Puff into the lungs once daily 90 Each 1 3 Active furosemide (LASIX) 40 mg tabletIndicatio ns:Heart failure with preserved ejection fraction, unspecified HF chronicity Take 1 Tablet by mouth once daily 90 Tablet 1 3 Active polyethylene glycol, PEG, 3350 17 gram/dose powder Take 17 g by mouth once daily 510 g 11 3 Active pantoprazole (PROTONIX) 40 mg EC tablet Take 1 Tablet by mouth every morning before breakfast 90 Tablet 3 Active metoprolol succinate XL (TOPROL-XL) 25 mg 24 hr tablet Take 1 Tablet by mouth once daily 90 Tablet 1 3 Active multivitamin tablet Take 1 Tablet by mouth once daily 90 Tablet 1 3 Active acamprosate (CAMPRAL) 333 mg tablet Take 2 Tablets by mouth 3 (three) times daily 540 Tablet 1 3 Active thiamine HCl, vitamin B1, 100 mg tablet Take 1 Tablet by mouth once daily 90 Tablet 1 3 Active nystatin (MYCOSTATIN) 100,000 unit/gram powderIndicatio ns:Intertrigo Apply topically 4 (four) times daily 60 g 5 3 Active valsartan (DIOVAN) 80 mg tablet Take 1 Tablet by mouth once daily 90 Tablet 1 3 Active MISCELLANEOUS MEDICAL SUPPLY MISCIndications :Urinary incontinence, unspecified type by miscellaneous route 4 (four) times daily Personal cleaning wipes: to clean urine wet skin. 3 Each 5 4 Active MISCELLANEOUS MEDICAL SUPPLY MISCIndications :Urinary incontinence, unspecified type,Stress bladder incontinence, female,Function al incontinence,Ar thritis of both knees by miscellaneous route 6 (six) times daily Disposable underwear--Modera te absorbency Lg 40-56 PULL UPS 200 Each 11 4 Active Active Problems Problem Noted Date Diagnosed Date Heart failure with preserved ejection fraction 0 04/21/2022 Seizure disorder 04/21/2022 Thrombocytopenia 02/02/2021 Overview (02/02/2021): January 2021: not sure if this is related to cirrhosis or a different issue in itself Tracheobronchomalacia 11/10/2020 Overview (11/10/2020): Admitted to [facility] October 2020 and was put on vent, was told to go to rehab after but patient refused Urinary incontinence 01/21/2020 Chronic, continuous use of opioids 11/14/2019 Overview (11/14/2019): Multiple hospitalization Pulmonary arterial hypertension 07/18/2019 Overview (07/18/2019): [facility] Closed compression fracture of L1 vertebra 04/23 Overview (04/23/2019): 04/23/19 xray due to a fall. Compression fracture of T12 vertebra 04/23/2019 Overview (04/23/2019): 04/23/19 xray due to a fall. Compression fracture of L3 vertebra 04/23/2019 Overview (04/23/2019): 04/23/19 xray due to a fall. COPD exacerbation 02/16/2019 Localized edema 02/16/2019 Murmur 01/10/2019 Accidental fall from bed 01/10/2019 Impaired ambulation 01/10/2019 Dependent on walker for ambulation 01/10/2019 Pressure injury of skin of lower back 01/10/2019 PND (paroxysmal nocturnal dyspnea) 01/10/2019 Acute shoulder pain 10/09/2018 Neuropathy 05/25/2017 Slow transit constipation 04/27/2017 Cirrhosis of liver 07/30/2016 Overview (11/02/2019): 04/23/19 Liver US Impression: Cirrhotic morphology to the liver. Stable focus of altered echotexure within left lobe medial segment. No suspicion of liver lesion 1 cm echogenic focus within bladder. 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 Kat History of colonoscopy 10/29/2014 Overview (10/29/2014): Next colonoscopy 07/2015 Intermittent asthma 04/29/2014 Rash of back 03/11/2014 Overview (05/11/2015): Dr. Waddell Macular amyloidosis: Clobetasol 0.05% oint Eyelid problem 03/11/2014 Contact dermatitis 02/09/2014 Edema, peripheral 02/09/2014 Sleep deprivation 11/22/2013 Smoking addiction 11/22/2013 Abrasion of back 11/22/2013 HTN (hypertension) 10/31/2013 Arthritis 10/31/2013 Asthma attack 10/31/2013 Anxiety Overview (02/23/2015): [facility] Hepatitis C Overview (09/25/2013): Genotype 2B Resolved Problems Problem Noted Date Diagnosed Date Resolved Date Pressure injury of right buttock, stage 2 11/28/2020 04/21/2022 Overview (11/28/2020): October 2020-homecare Lack of housing 03/20/2019 Overview (09/25/2013): Homeless half-way Immunizations Immunization Administration Dates Next Due Flu, High Dose, 65y+, Fluzon e High Dose 12/16/2020 Hep A, adult 03/20/2019,05/20/2006 Hep B, Adult/Adol ([id number]/RECOMBIVAX-ADULT) 09/08/2018,06/28/2018,05/31/2018,07/14,07/04/2006,05/20/2006 INFLUENZA, SEASONAL, INJECTABLE 09/23/20 16,10/10/2015,08/01/2014,09/05,07/29/2012,07/25/2009,01/18/2007 Influenza [...] 11/07/2024 023, 10/29/2014 (Managed by Outside Provider) [id number] ( season) 2025 03/30/2022, 01/31/2021, 01/03/2021 Imm-Influenza [...] AM EST) 10/04/2022 3:00 AM EST Braulio VELEZP IMG ULTRASOUND Edited Re sult - Final * HEMOGLOBIN, GLYCOSYLATED (A1C) (01/30/2021 10:54 AM EDT) GLYCATED HEMOGLOBIN A1C 4.5 <6.5 % [facility] ESTIMATED AVERAGE GLUCOSE 82 mg/dL [facility] Blood Blood / Unknown 01/30/2021 1 0:54 AM EDT 01/30/2021 1:50 PM EDT Narrative [facility] - 01/30/2021 4:52 PM EDT [employer], [place] [address] [employer] Worker - Sarai Persaud MD PT ID [id number] ORD# [id number] Braulio VELEZP LAB - BLOOD DRAW Final Re sult [address] [address], [place] [phone] from Last 3 Months or Most Recently Relevant to Health Maintenance [place] Care Teams Diesel Maintenance Technician Relationship Specialty Start Date End Date Braulio Brooks FNP [address] [place] [address] PCP - General Family Medicine, DERRICK HELPER 09/22/20
--- NOTE | 2025-08-21 19:09 | MHC.EDTECH ---
Patient inc therefore patient changed and repositioned
--- NOTE | 2025-08-21 20:30 | PC.NURSE ---
Attempted report x2 to [facility], no response.
== END 2025-08-21 21:31 | disposition skilled nursing facility (03) ==
PROVIDERS: Emergency Provider Emergency Medicine; PCP Internal Medicine
DX: D64.9 Anemia, unspecified (principal); K31.819 Angiodysplasia of stomach and duodenum without bleeding; R53.83 Other fatigue; Z79.899 Other long term (current) drug therapy; Z51.81 Encounter for therapeutic drug level monitoring
CPT/HCPCS: 36415; 36430; 80048; 80076; 82272; 82803; 85025; 85610; 85730; 86850; 86900; 86901; 86923; 99284; 99285; P9016

== ENCOUNTER 2025-09-10 07:19 | Day surgery (SDC) | payer MEDICARE, MEDICAID, SELFPAY ==
--- NOTE | 2025-09-06 10:17 | HO.ANESPROP2 ---
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 Flat varices Portal hypertensive gastropathy (biopsy) Oozing GAVE (APC) Normal duodenum. 08/21/25 [facility] ED with acute on chronic anemia (H&H 6&22) - s/p 2 units and d/c back to SNF [facility] Active Problems Active Problems: All Active Problems Anemia (Acute) Ascites (Acute) GAVE (gastric antral vascular ectasia) (Acute) Hepatitis C test positive (Acute) Past Medical History Medical History History of abdominal paracentesis (09/28/23) Chronic lung disease Hypercapnia COPD (chronic obstructive pulmonary disease) Hepatitis C test positive Cirrhosis of liver without ascites Serum ammonia increased Cirrhosis FH: cholecystectomy Hepatitis C Splenomegaly Type 2 diabetes mellitus Morbid obesity CHF (congestive heart failure) Family History Family history of problems with anesthesia: Yes Surgical History Surgical History History of esophagogastroduodenoscopy (EGD) (07/19/25) H/O enucleation of right eyeball Hx of appendectomy History of hip replacement History of Problems with Anesthesia: No Social History Social History Household Members: None Housing: [facility] Housing Other:: [facility] Do you presently have visiting nurse or other home services: Yes Alcohol intake: former Patient Tobacco Use Status: Former Tobacco user Tobacco use type: Cigarette Cigarette Packs Per Day: 1 Cigarettes Per Day: 20.0 Years Smoked: 30 Second Hand Smoke Exposure: No Have you been hit, kicked, punched, or otherwise hurt by someone within the past year? If so, by whom?: No Are you DNR?: No Advance Directives: No Advance Directives Information Provided: Yes Advance Directives Date on File: 08/29/23 service: No Meds Allergies Allergy/AdvReac Type Severity Reaction Status Date / Time acetaminophen (From Tylenol) Allergy Unknown Verified 08/21/25 10:56 amoxicillin Allergy Unknown Verified 08/21/25 10:56 codeine Allergy Unknown Verified 08/21/25 10:56 tuberculin, purified protein Allergy Unknown Verified 08/21/25 10:56 deriva Home Medications ?Medication ?Instructions ?Recorded ?Confirmed ?Last Taken ?Type alprazolam 0.25 mg tablet (Xanax) 0.25 mg PO BID Anxiety 06/28/23 07/18/25 Unknown History bisacodyl 10 mg rectal suppository 10 mg ME DAILY PRN Constipation 06/28/23 07/18/25 Unknown History cetirizine 10 mg tablet 10 mg PO DAILY 06/28/23 07/18/25 Unknown History fluticasone propionate 50 1 spray intranasal BID 06/28/23 07/18/25 Unknown History mcg/actuation nasal spray,suspension (Flonase Allergy Relief) gabapentin 300 mg capsule 300 mg PO TID 06/28/23 07/18/25 Unknown History lactulose 10 gram/15 mL oral 45 ml PO TID 06/28/23 07/18/25 06/26/23 History solution levetiracetam 500 mg tablet 500 mg PO BID 06/28/23 07/18/25 Unknown History (Keppra) magnesium hydroxide 400 mg/5 mL 30 ml PO DAILY PRN Constipation 06/28/23 07/18/25 Unknown History oral suspension (Milk of Magnesia) metoprolol tartrate 25 mg tablet 25 mg PO DAILY 06/28/23 07/18/25 Unknown History multivitamin 1 tab PO DAILY 06/28/23 07/18/25 Unknown History pantoprazole 40 mg tablet,delayed 40 mg PO DAILY@0630 06/28/23 07/18/25 Unknown History release sodium phosphates 19 gram-7 118 ml ME DAILY PRN Constipation 06/28/23 07/18/25 Unknown History gram/118 mL enema (Fleet Enema) thiamine HCl (vitamin B1) 100 mg 100 mg PO DAILY 06/28/23 07/18/25 Unknown History tablet tizanidine 2 mg tablet 2 mg PO Q8H PRN Muscle Spasm 06/28/23 07/18/25 Unknown History cyclosporine 0.05 % eye drops in a 1 drp ophthalmic-Left BID 04/01/25 07/18/25 Unknown History dropperette (Restasis) escitalopram oxalate 10 mg tablet 10 mg PO DAILY 04/01/25 07/18/25 Unknown History fluticasone fur. 200 mcg-umeclid 1 ea inhalation DAILY 04/01/25 07/18/25 Unknown History 62.5 mcg-vilant 25 mcg inhalat.powder (Trelegy Ellipta) guaifenesin 100 mg/5 mL oral 200 mg PO Q6H PRN Cough 04/01/25 07/18/25 Unknown History liquid (Camryn-Tussin) spironolactone 25 mg tablet 12.5 mg PO DAILY 04/01/25 07/18/25 Unknown History albuterol sulfate 90 mcg/actuation 1 inh inhalation BID 05/08/25 07/18/25 Unknown History aerosol inhaler benzonatate 200 mg capsule 200 mg PO TID 05/08/25 07/18/25 Unknown History furosemide 40 mg tablet 40 mg PO BID 05/08/25 07/18/25 Unknown History oxycodone 5 mg tablet 5 mg PO Q8H PRN Pain 05/08/25 07/18/25 Unknown History Exam Narrative Narrative: EKG 07/2025 Vent. Rate : 72 BPM Atrial Rate : 72 BPM P-R Int : 178 ms QRS Dur : 94 ms QT Int : 456 ms P-R-T Axes : 60 -2 34 degrees QTcB Int : 499 ms Normal sinus rhythm Prolonged QT Abnormal ECG When compared with ECG of 08-May-2025 06:41, Vent. rate has decreased by 41 bpm Criteria for Anterior infarct are no longer Present Criteria for Inferior infarct are no longer Present ECHO 07/2025 Conclusions: - 1. Hyperdynamic LV ejection fraction greater than 70% with impaired relaxation filling pattern with mild LVH without clear obstructive physiology 2. Severely dilated left atrium 3. [id number] calcific aortic stenosis with increased gradient across the LVOT of unclear significance 4. Calcific mitral annular calcification changes noted 5. No gross pericardial effusion Assessment and Plan Assessment Anesthesia Assessment: Chart Reviewed Final Anesthetic Review Family History of Problems with Anesthesia: Yes History of Problems with Anesthesia: No Documented by User: Jerzy Smith MD 09/10/25 08:13 [facility] Past Medical History Medical History History of abdominal paracentesis (09/28/23) Chronic lung disease Hypercapnia COPD (chronic obstructive pulmonary disease) Hepatitis C test positive Cirrhosis of liver without ascites Serum ammonia increased Cirrhosis FH: cholecystectomy Hepatitis C Splenomegaly Type 2 diabetes mellitus Morbid obesity CHF (congestive heart failure) Family History Family history of problems with anesthesia: No Surgical History Surgical History History of esophagogastroduodenoscopy (EGD) (07/19/25) H/O enucleation of right eyeball Hx of appendectomy History of hip replacement Social History Social History Household Members: None Housing: [facility] Other:: [facility] Do you presently have visiting nurse or other home services: Yes Alcohol intake: former Patient Tobacco Use Status: Former Tobacco user Tobacco use type: Cigarette Cigarette Packs Per Day: 1 Cigarettes Per Day: 20.0 Years Smoked: 30 Second Hand Smoke Exposure: No Have you been hit, kicked, punched, or otherwise hurt by someone within the past year? If so, by whom?: No Are you DNR?: No Advance Directives: No Advance Directives Information Provided: Yes Advance Directives Date on File: 08/29/23 service: No Meds Allergies Allergy/AdvReac Type Severity Reaction Status Date / Time acetaminophen (From Tylenol) Allergy Unknown Verified 08/21/25 10:56 amoxicillin Allergy Unknown Verified 08/21/25 10:56 codeine Allergy Unknown Verified 08/21/25 10:56 tuberculin, purified protein Allergy Unknown Verified 08/21/25 10:56 deriva Home Medications ?Medication ?Instructions ?Recorded ?Confirmed ?Last Taken ?Type alprazolam 0.25 mg tablet (Xanax) 0.25 mg PO BID Anxiety 06/28/23 07/18/25 Unknown History bisacodyl 10 mg rectal suppository 10 mg ME DAILY PRN Constipation 06/28/23 07/18/25 Unknown History cetirizine 10 mg tablet 10 mg PO DAILY 06/28/23 07/18/25 Unknown History fluticasone propionate 50 1 spray intranasal BID 06/28/23 07/18/25 Unknown History mcg/actuation nasal spray,suspension (Flonase Allergy Relief) gabapentin 300 mg capsule 300 mg PO TID 06/28/23 07/18/25 Unknown History lactulose 10 gram/15 mL oral 45 ml PO TID 06/28/23 07/18/25 06/26/23 History solution levetiracetam 500 mg tablet 500 mg PO BID 06/28/23 07/18/25 Unknown History (Keppra) magnesium hydroxide 400 mg/5 mL 30 ml PO DAILY PRN Constipation 06/28/23 07/18/25 Unknown History oral suspension (Milk of Magnesia) metoprolol tartrate 25 mg tablet 25 mg PO DAILY 06/28/23 07/18/25 Unknown History multivitamin 1 tab PO DAILY 06/28/23 07/18/25 Unknown History pantoprazole 40 mg tablet,delayed 40 mg PO DAILY@0630 06/28/23 07/18/25 Unknown History release sodium phosphates 19 gram-7 118 ml ME DAILY PRN Constipation 06/28/23 07/18/25 Unknown History gram/118 mL enema (Fleet Enema) thiamine HCl (vitamin B1) 100 mg 100 mg PO DAILY 06/28/23 07/18/25 Unknown History tablet tizanidine 2 mg tablet 2 mg PO Q8H PRN Muscle Spasm 06/28/23 07/18/25 Unknown History cyclosporine 0.05 % eye drops in a 1 drp ophthalmic-Left BID 04/01/25 07/18/25 Unknown History dropperette (Restasis) escitalopram oxalate 10 mg tablet 10 mg PO DAILY 04/01/25 07/18/25 Unknown History fluticasone fur. 200 mcg-umeclid 1 ea inhalation DAILY 04/01/25 07/18/25 Unknown History 62.5 mcg-vilant 25 mcg inhalat.powder (Trelegy Ellipta) guaifenesin 100 mg/5 mL oral 200 mg PO Q6H PRN Cough 04/01/25 07/18/25 Unknown History liquid (Camryn-Tussin) spironolactone 25 mg tablet 12.5 mg PO DAILY 04/01/25 07/18/25 Unknown History albuterol sulfate 90 mcg/actuation 1 inh inhalation BID 05/08/25 07/18/25 Unknown History aerosol inhaler benzonatate 200 mg capsule 200 mg PO TID 05/08/25 07/18/25 Unknown History furosemide 40 mg tablet 40 mg PO BID 05/08/25 07/18/25 Unknown History oxycodone 5 mg tablet 5 mg PO Q8H PRN Pain 05/08/25 07/18/25 Unknown History Exam Airway Mallampati Class: II TM Dist: <=3cm Neck ROM: Full Partial: Upper Heart: mod . Echo reviewed. Lungs: ok. Sat 96% RA. Assessment and Plan Assessment Anesthesia Assessment: Anesthesia Plan Discussed Final Anesthetic Review Family History of Problems with Anesthesia: No NPO: Yes ASA Class: IV Final Preanesthetic Review: No Changes in Pt Med Stat, Meds/Allgs Chart Reviewed, Consent Obtained/Reviewed and Anes Risks/Benef Reviewed Patient Risk: High Procedure Risk: Intermediate Anesthetic Plan Anesthetic Plan: Agree w/ Assess. and Plan and TIVA Disposition: Standard PACU
[2025-09-10 07:24] VITALS: BMI 29.3
[2025-09-10] MEDS: Lactated Ringers 1,000 ML 100 ML IVCONT (07:27)
[2025-09-10 07:29] VITALS: BP 105/46; PULSE 82; RESP 16; TEMP 36.4; O2SAT 96
--- NOTE | 2025-09-10 07:43 | PC.NURSE ---
patient does not take any medications for diabetes. no poc required per policy.
[2025-09-10 07:52] LABS: Hematocrit 25.1 % (37.0-47.0); Hemoglobin 7.4 g/dl (12.0-16.0); Mean Corpuscular HGB Conc 29.5 g/dl (31.0-35.0); Mean Corpuscular Hemoglobin 24.8 pg (27.0-33.0); Mean Corpuscular Volume 84.2 fL (80.0-98.0); NRBC Abs Auto 0.000 X10*3/uL (0.0-0.012); NRBC Pct Auto 0.0 /100WBC (0.0-0.2); Red Blood Count 2.98 X10*6/uL (4.20-5.50); White Blood Count 4.2 X10*3/uL (4.8-10.8)
--- NOTE | 2025-09-10 07:52 | MHC.SHP ---
Pre-Procedural Eval Section A - 24 Hr Update-Section A only Date of Service: 09/10/25 Section B - Complete if H&P > 30 days Chief Complaint: Angiodysplasia of stomach and duodenum without ble Details of Present Illness: Hypercapnia COPD (chronic obstructive pulmonary disease) Hepatitis C test positive Cirrhosis of liver without ascites Serum ammonia increased Cirrhosis FH: cholecystectomy Hepatitis C Splenomegaly Type 2 diabetes mellitus Morbid obesity CHF (congestive heart failure) Surgical History Surgical History H/O enucleation of right eyeball Hx of appendectomy History of hip replacement Allergies: Allergies Allergy/AdvReac Type Severity Reaction Status Date / Time acetaminophen (From Tylenol) Allergy Unknown Verified 08/21/25 10:56 amoxicillin Allergy Unknown Verified 08/21/25 10:56 codeine Allergy Unknown Verified 08/21/25 10:56 tuberculin, purified protein Allergy Unknown Verified 08/21/25 10:56 deriva Plan Diagnosis/Plan: Unchanged I have reviewed the history and physical and performed a pertinent physical examination on my patient. No changes have occurred unless specified. Consent obtained from HCP Christian due to HE. Time Spent With Patient Time: Total time managing care of this patient today ____ minutes.
[2025-09-10 07:56] LABS: Platelet Count 63 X10*3/uL (160-400)
[2025-09-10 09:01] VITALS: BP 127/73; PULSE 108; TEMP 37.4; O2SAT 96
--- NOTE | 2025-09-10 09:02 | P.OP_ITS ---
Operative Note Operative Note Date of Service: 09/10/25 Narrative: Procedure: Esophagogastroduodenoscopy Endoscopist: Rosa Russell MD Indication: Anemia Anesthesia Provider: Aracelis Alcazar CRNA Anesthesia Type: MAC ?? EGD Procedure:?? The procedure, indications, preparation and potential complications were reviewed with the patient's son/HCP Christian, who indicated understanding and gave written informed consent to proceed. A physical exam was performed. The endoscope was introduced through the mouth, and advanced to the second part of duodenum. The mucosa was carefully examined on slow withdrawal of the endoscope. The patient tolerated the procedure well. There were no immediate complications.? ? EGD Findings:? * Esophagus:? Normal mucosa noted in the entire esophagus. The Z line was at 40 cm. Flat varices were noted in lower esophagus. * Stomach:?Diffuse congestion and erythema in mosaic pattern consistent with p ortal hypertensive gastropathy was noted in the whole stomach. Retroflexion was performed in the cardia. Watermelon appearance of antrum noted with spontaneous bleeding at 4 o clock and 6 o clock position consistent with gastric antral vascular ectasia (GAVE). Argon plasma coagulation (APC) was applied using circumferential catheter for hemostasis. * Duodenum:? Normal duodenal mucosa. A few spontaneosly oozing AVMs noted in 2nd portion of the duodenum that were also ablated with APC. ? EGD Impressions:? * Flat varices * Portal hypertensive gastropathy (biopsy) * Oozing GAVE (APC) * Duodenal AVMs ?? Recommendations:?? * Continue PPI * Start carafate 10 ml QID x 14 days * Avoid NSAIDs. * Outpatient iron infusions to be set up * Repeat EGD in 6-8 weeks for elective ablation Above has been reviewed with the patient.
[2025-09-10 09:15] VITALS: BP 122/68; PULSE 102; RESP 16; O2SAT 96
[2025-09-10 09:30] VITALS: BP 124/66; PULSE 98; RESP 18; O2SAT 97
[2025-09-10 10:00] VITALS: BP 117/47; PULSE 96; RESP 16; TEMP 36.9; O2SAT 97
--- NOTE | 2025-09-10 10:27 | PC.NURSE ---
[facility] 4 attempts to provide report, then voicemail left with [facility] supervisor, [facility] as per md. Russell she was incommunication with patients son.
== END 2025-09-10 10:28 | disposition home or self-care (01) ==
PROVIDERS: Nurse Practitioner; PCP Internal Medicine; Visit Provider Internal Medicine
PROC: 0DJ08ZZ Inspection of Upper Intestinal Tract, Via Natural or Artificial Opening Endoscopic (ICD-10-PCS; CPT 43235; principal; 2025-09-10 08:20)
DX: K31.811 Angiodysplasia of stomach and duodenum with bleeding (principal); D64.9 Anemia, unspecified; I85.00 Esophageal varices without bleeding
CPT/HCPCS: 43255; 36415; 85027; C1889; J2003; J2250; J2371; J2704; J3010

== ENCOUNTER → 2025-09-10 07:19 | Outpatient (BNV) | payer MEDICARE, MEDICAID, SELFPAY | PROVIDERS: PCP Internal Medicine; Visit Provider Internal Medicine | DX: D50.0 Iron deficiency anemia secondary to blood loss (chronic) (principal); I85.00 Esophageal varices without bleeding; K76.6 Portal hypertension; K31.89 Other diseases of stomach and duodenum; K31.811 Angiodysplasia of stomach and duodenum with bleeding | CPT/HCPCS: 43239; 43255 ==

== ENCOUNTER 2025-10-24 13:15 | Outpatient (RCR) | payer MEDICARE, MEDICAID, SELFPAY ==
[2025-09-26 11:31] VITALS: BP 111/64; PULSE 78; RESP 16; TEMP 37.2; O2SAT 98
[2025-10-01 11:34] VITALS: BP 147/84; PULSE 84; RESP 18; TEMP 36.6
[2025-10-10 11:04] VITALS: BP 136/78; PULSE 77; RESP 20; TEMP 36.9; O2SAT 100
[2025-10-16 11:21] VITALS: BP 123/56; PULSE 75; RESP 16; TEMP 36.6; O2SAT 99
[2025-10-24 13:08] VITALS: BP 118/70; PULSE 81; RESP 20; TEMP 37.1; O2SAT 99
== END 2025-10-24 13:37 | disposition home or self-care (01) ==
LOC: HO.INF 13:15
PROVIDERS: PCP Internal Medicine; Visit Provider Internal Medicine
DX: D64.9 Anemia, unspecified (principal)
CPT/HCPCS: 96365; 96374; J1756